=== PATIENT | female | born 1955 | race Caucasian/White ===

== ENCOUNTER 2016-09-02 03:24 | Observation (INO) | payer BC, MEDICARE ==
[2016-09-02] MEDS ORDERED: NITROGLYCERIN OINT 1 INCH/GM PACKET TOPICAL STA (03:35)
--- NOTE | 2016-09-02 03:42 | ED ---
Chest Pain HPI - General Stated Complaint: chest pain Source: patient, EMS Mode of arrival: EMS Limitations: no limitations - History of Present Illness Initial Comments: This patient is a 60-year-old woman who presents to be evaluated for chest pain. The patient states that for the past 5 nights she has had similar episodes to this. She indicates heavy sensation to the left chest, and also a feeling that her heart was skipping beats. She states that the symptoms tonight were more severe than they had been previously. She ranked the sensation as moderate. She had not noted any worsening or relieving factors at home. the patient does state that after she called EMS tonight and they gave her nitroglycerin she did have resolution of the symptoms. In addition tonight patient had an episode of vomiting associated. She also has had dyspnea and the palpitations. Patient denies diaphoresis, syncope, leg pain or swelling. MD Complaint: chest pain Onset/Timin -: hour(s) Onset: during rest Pain Location: left chest Pain Radiation: none Severity: moderate Quality: heaviness Consistency: constant, now resolved Improves With: nitroglycerin Worsens With: nothing Anginal Symptoms: vomiting, dyspnea Treatments Prior to Arrival: aspirin, nitroglycerin, oxygen - Related Data Home Medications Medication Instructions Recorded Confirmed tiZANidine HCL [Tizanidine HCl] 4 mg PO BID PRN 06/17/14 03/03/15 Previous Rx's Medication Instructions Recorded Docusate [Colace] 100 mg PO BID #60 capsule 03/04/15 HYDROcodone/APAP 7.5-325MG [[place] 1 - 2 each PO Q6HR PRN #90 tab 03/04/15 7.5-325] Warfarin [Coumadin] 2.5 mg PO DAILY #27 tab 03/04/15 Allergies Allergy/AdvReac Type Severity Reaction Status Date / Time No Known Allergies Allergy Verified 03/03/15 13:56 Review of Systems ROS Statement: Those systems with pertinent positive or pertinent negative responses have been documented in the HPI. ROS Other: All systems not noted in ROS Statement are negative. Constitutional: Denies: fever, weakness Respiratory: Reports: dyspnea. Denies: cough, wheezes Cardiovascular: Reports: chest pain, palpitations. Denies: dyspnea on exertion , orthopnea, edema, syncope Gastrointestinal: Reports: vomiting. Denies: abdominal pain, melena, hematochezia Genitourinary: Denies: dysuria, hematuria Musculoskeletal: Denies: back pain Skin: Denies: rash Neurological: Denies: headache, weakness, numbness EKG Findings - EKG Comments: EKG Findings:: Patient's 12-lead EKG shows sinus rhythm with a left bundle- branch block present. The rate is 62 bpm. NE interval is 158 ms. QRS duration prolonged at 134 ms. QT corrected is 424 ms - EKG Results: EKG: interpreted by [facility], sinus rhythm (Rate approximate 60 bpm) Past Medical History Past Medical History: Hypertension, Osteoarthritis (OA) Additional Past Medical History / Comment(s): 06/23/14 Pt admitted to floor s/p total L and R hip arthroplasty. Other HX: DDD. PILI SCIATIC NERVE PAIN. History of Any Multi-Drug Resistant Organisms: None Reported Past Surgical History: Joint Replacement Additional Past Surgical History / Comment(s): 03/03/15 Total L hip arthroplasty. Other SX: Total R hip arthroplasty. ECTOPIC PREG - LT SALPINGECTOMY. Past Anesthesia/Blood Transfusion Reactions: No Reported Reaction Past Psychological History: No Psychological Hx Reported Additional Psychological History / Comment(s): Pt resides with her brother. Pt normally is independent with her ADl"s. She drives a car. Smoking Status: Current every day smoker Past Alcohol Use History: None Reported Past Drug Use History: None Reported - Past Family History Mother Family Medical History: Cancer Father Family Medical History: Cancer General Exam Limitations: no limitations General appearance: alert, in no apparent distress Head exam: Present: atraumatic, normocephalic Eye exam: Present: normal appearance. Absent: scleral icterus, conjunctival injection ENT exam: Present: normal oropharynx Respiratory exam: Present: normal lung sounds bilaterally. Absent: respiratory distress, wheezes, rales, rhonchi, stridor Cardiovascular Exam: Present: regular rate, normal rhythm, normal heart sounds. Absent: systolic murmur, diastolic murmur, rubs, gallop GI/Abdominal exam: Present: soft. Absent: distended, tenderness, guarding, rebound, mass, pulsatile mass Extremities exam: Present: normal inspection, normal capillary refill. Absent: pedal edema, calf tenderness Back exam: Present: normal inspection. Absent: CVA tenderness (R), CVA tenderness (L) Neurological exam: Present: alert Skin exam: Present: warm, dry, intact, normal color. Absent: rash Course Vital Signs 09/02/16 09/02/16 03:33 04:58 Pulse Rate 68 54 L Respiratory 16 16 Rate Blood Pressure 218/98 187/90 O2 Sat by Pulse 95 98 Oximetry Disposition Clinical Impression: Chest pain Disposition: ADMITTED IP TO THIS HOSP Condition: Fair
[2016-09-02] MEDS ORDERED: METOPROLOL TARTRATE 25 MG TAB PO STA (03:43)
[2016-09-02 03:48] LABS: Basophils # (A) 0.1 k/uL (0-0.2); Basophils % (A) 1 %; CH 30.6; CHCM 33.7; Eosinophils # (A) 0.4 k/uL (0-0.7); Eosinophils % (A) 4 %; HCT 44.2 % (34.0-46.0); HDW 2.31; HGB 14.5 gm/dL (11.4-16.0); Luc # (Auto) 0.11; Luc % (Auto) 1; Lymphocytes # (A) 2.5 k/uL (1.0-4.8); Lymphocytes % (A) 27 %; MCHC 32.9 g/dL (31.0-37.0); MCV 91.4 fL (80.0-100.0); Mean Platelet Volume 7.2; Monocytes # (A) 0.4 k/uL (0-1.0); Monocytes % (A) 4 %; Neutrophils # (A) 5.9 k/uL (1.3-7.7); Neutrophils % (A) 64 %; RBC 4.84 m/uL (3.80-5.40); WBC 9.3 k/uL (3.8-10.6); WBC (Perox) 9.22
[2016-09-02 03:57] LABS: ALT 30 U/L (9-52); AST 20 U/L (14-36); Alkaline Phosphatase 86 U/L (38-126); Amylase 86 U/L (30-110); Anion Gap 11 mmol/L; Blood Urea Nitrogen 17 mg/dL (7-17); Calcium 9.7 mg/dL (8.4-10.2); Carbon Dioxide 23 mmol/L (22-30); Chloride 108 mmol/L (98-107); Glucose 100 mg/dL (74-99); Non-African American GFR(MDRD) >60 (>60 ml/min/1.73 sqM); Sodium 142 mmol/L (137-145); Total Bilirubin 0.4 mg/dL (0.2-1.3); Total Protein 7.7 g/dL (6.3-8.2)
[2016-09-02 03:58] LABS: Partial Thromboplastin Time 26.3 sec (22.0-30.0); Prothrombin Time 10.3 sec (9.0-12.0)
[2016-09-02 04:12] LABS: Creatine Kinase 53 U/L (30-135)
--- NOTE | 2016-09-02 04:12 | XR ---
EXAM: XR Chest, 1 View CLINICAL HISTORY: Reason: chest pain TECHNIQUE: Frontal view of the chest. COMPARISON: 03/04/15 two-view chest FINDINGS: Lungs: Unremarkable. No consolidation. Pleural space: Unremarkable. No pneumothorax. Heart: Heart size is stable and towards the upper limits of normal. Mediastinum: Unremarkable. Bones/joints: Bones are stable including mild degenerative changes. IMPRESSION: No significant change. No new acute intrathoracic abnormality.
[2016-09-02 04:25] LABS: Creatine Kinase MB 0.6 ng/mL (0.0-2.4); Troponin I <0.012 ng/mL (0.000-0.034)
[2016-09-02] MEDS ORDERED: NITROGLYCERIN SL TABS 0.4 MG TAB SUBLINGUAL PRN (05:19)
[2016-09-02] MEDS ORDERED: ENOXAPARIN 80 MG/0.8 ML SYRINGE SQ STA (05:22)
[2016-09-02] MEDS ORDERED: tiZANidine 4 MG TAB PO PRN (05:23)
--- NOTE | 2016-09-02 07:51 | P.CRDCN ---
History of Present Illness Consult date: 09/02/16 Chief complaint: Chest pain History of present illness: This is a pleasant 60-year-old female patient with a past medical history significant for hypertension presented to the hospital because she was not feeling well. Over the last 4-5 days she's been feeling dizzy and lightheaded and also she was experiencing headache and weakness. She did not experience any chest pain or chest discomfort nor shortness of breath. She was diagnosed with hypertension 5 months ago when she was restarted on medication then she decided to stop the medications on her own. Upon presenting to the emergency room the systolic blood pressure was more than 200 mmHg systolic. We only have one set of cardiac enzymes came in to be unremarkable. We don't have an EKG on the patient. We will obtain an EKG. Follow-up with the serial cardiac enzyme. The patient was started on metoprolol we'll continue that. I would add Norvasc to the current medical treatment as well. We will follow-up with the patient. Past Medical History Past Medical History: Hypertension, Osteoarthritis (OA) Additional Past Medical History / Comment(s): 06/23/14 Pt admitted to floor s/p total L and R hip arthroplasty. Other HX: DDD. PILI SCIATIC NERVE PAIN. History of Any Multi-Drug Resistant Organisms: None Reported Past Surgical History: Joint Replacement Additional Past Surgical History / Comment(s): 03/03/15 Total L hip arthroplasty. Other SX: Total R hip arthroplasty. ECTOPIC PREG - LT SALPINGECTOMY. Past Anesthesia/Blood Transfusion Reactions: No Reported Reaction Past Psychological History: No Psychological Hx Reported Additional Psychological History / Comment(s): Pt resides with her brother. Pt normally is independent with her ADl"s. She drives a car. Smoking Status: Current every day smoker Past Alcohol Use History: None Reported Past Drug Use History: None Reported - Past Family History Mother Family Medical History: Cancer Father Family Medical History: Cancer Medications and Allergies Home Medications Medication Instructions Recorded Confirmed Type Naproxen Sodium [Aleve] 220 mg PO DAILY PRN 09/02/16 09/02/16 History Allergies Allergy/AdvReac Type Severity Reaction Status Date / Time No Known Allergies Allergy Verified 09/02/16 07:23 Physical Exam Vitals: Vital Signs Temp Pulse Pulse Resp BP BP Pulse Ox 09/02/16 06:46 97.6 F 60 18 165/91 98 09/02/16 06:30 52 L 16 158/74 98 - Constitutional General appearance: no acute distress - Respiratory Respiratory: bilateral: CTA - Cardiovascular Rhythm: regular Heart sounds: normal: S1, S2 Results 09/02/16 03:38 09/02/16 03:38 Current Medications Generic Name Dose Route Start Last Admin Trade Name Freq PRN Reason Stop Dose Admin Aspirin 325 mg 09/03/16 09:00 Aspirin PO DAILY [facility] Docusate Sodium 100 mg 09/02/16 09:00 Colace PO BID [facility] Enoxaparin Sodium 70 mg 09/02/16 21:00 Lovenox SQ Q12HR [facility] Metoprolol Tartrate 25 mg 09/02/16 21:00 Lopressor PO BID [facility] Nitroglycerin 1 inch 09/02/16 12:00 Nitro-Bid Oint TOPICAL Q6HR [facility] Nitroglycerin 0.4 mg 09/02/16 05:19 Nitrostat SUBLINGUAL Q5M PRN Chest Pain Tizanidine HCl 4 mg 09/02/16 05:23 Zanaflex PO BID PRN Pain Warfarin Sodium 2.5 mg 09/02/16 18:00 Coumadin PO 1800 DORIS Assessment and Plan Plan: Assessment #1 hypertension emergency Plan #1 continue the metoprolol #2 add Norvasc to metoprolol #3 follow-up with the patient
[2016-09-02] MEDS: DOCUSATE 100 MG CAP PO SCH ×2 (10:21→20:23)
[2016-09-02] MEDS: amLODIPine 5 MG TAB PO SCH ×2 (10:23→20:23)
--- NOTE | 2016-09-02 11:18 | ECHOF ---
Referral Reason: MEASUREMENTS -------- HEIGHT: 162.6 cm WEIGHT: 69.9 kg BP: 165/91 RVIDd: 2.7 cm (< 3.3) IVSd: 1.2 cm (0.6 - 1.1) LVIDd: 3.8 cm (3.9 - 5.3) LVPWd: 1.0 cm (0.6 - 1.1) IVSs: 1.4 cm LVIDs: 3.0 cm LVPWs: 1.1 cm LA Diam: 3.1 cm (2.7 - 3.8) LAESV Index (A-L): 18.27 ml/m Ao Diam: 0.1 cm (2.0 - 3.7) MV EXCURSION: 15.271 mm (> 18.000) MV EF SLOPE: 72 mm/s (70 - 150) EPSS: 0.5 cm MV E Kayden: 0.80 m/s MV DecT: 220 ms MV A [place]: 0.19 m/s MV E/A Ratio: 4.23 RAP: 5.00 mmHg RVSP: 25.35 mmHg FINDINGS -------- Sinus rhythm. This was a technically adequate study. There is borderline concentric left ventricular hypertrophy. Overall left ventricular systolic function is normal with, an EF between 55 - 60 %. The right ventricle is normal in size. Normal LA size by volume 22+/-6 ml/m2. The right atrial size is normal. There is mild aortic valve sclerosis. There is no evidence of aortic regurgitation. Mild mitral annular calcification present. Mild mitral regurgitation is present. Mild tricuspid regurgitation present. There is no evidence of pulmonary hypertension. The right ventricular systolic pressure, as measured by Doppler, is 25.35mmHg. There is no pulmonic regurgitation present. The aortic root size is normal. There is no pericardial effusion. CONCLUSIONS -------- 1. There is borderline concentric left ventricular hypertrophy. 2. Overall left ventricular systolic function is normal with, an EF between 55 - 60 %. 3. There is mild aortic valve sclerosis. 4. Mild mitral annular calcification present. 5. Mild mitral regurgitation is present. 6. Mild tricuspid regurgitation present. 7. There is no evidence of pulmonary hypertension. 8. The right ventricular systolic pressure, as measured by Doppler, is 25.35mmHg. CREDIT MANAGER: Jennifer Montoya RDCS
[2016-09-02] MEDS: NITROGLYCERIN OINT 1 INCH/GM PACKET TOPICAL SCH ×2 (11:19→17:47)
[2016-09-02 11:41] LABS: Creatine Kinase 47 U/L (30-135)
[2016-09-02 11:55] LABS: Creatine Kinase MB 0.6 ng/mL (0.0-2.4); Troponin I <0.012 ng/mL (0.000-0.034)
--- NOTE | 2016-09-02 13:13 | HP ---
DATE OF ADMISSION: This dictation is both H&P and discharge summary. The patient is a 60-year-old came in with complaints of dizziness, lightheadedness and palpitations along with chest pressure-like sensation, denied any diaphoresis associated with that; was having some lightheadedness with also questionable shortness of breath. Patient was found to have a very highly elevated blood pressure. Patient is admitted for hypertensive emergency and accelerated hypertension, improved blood pressure now and patient is on amlodipine and metoprolol. Because of the palpitations at home, although there is no evidence of tachycardia here. Patient became bradycardic because of which I am not giving the script of metoprolol. If cleared by Cardiology, patient will discharge. The patient does have some significant abnormalities on the EKG, which include on and off bundle branch block with left ventricular hypertrophic changes. The patient had an echocardiogram which showed LV hypertrophic changes as well. Patient presently does not have any symptoms, fairly doing well. Patient denied any fever or chills. Patient denied any abdominal pain. Patient denied dysuria. Patient if cleared by cardiology will be discharged today. This dictation is both H&P and discharge summary. ROS: All others systems were reviewed and were negative. PAST MEDICAL HISTORY: Hypertension, osteoarthritis, and joint replacement surgery. SOCIAL HISTORY: The patient does smoke, appears to be highly noncompliant with medications. Denied any alcohol abuse or any drug abuse. FAMILY HISTORY: Mother had cancer. Father had cancer. Home medications include naproxen. No known allergies. PHYSICAL EXAMINATION: Temperature 98.1, pulse of 45, respiratory rate of 16, blood pressure is 163/79, saturating at 97% on room air. GENERAL: The patient is alert and oriented x3, not in any acute distress. Well developed, well nourished. HEENT: Pupils are round and equally reacting to light. EOMI. No scleral icterus. No conjunctival pallor. Normocephalic, atraumatic. No pharyngeal erythema. No thyromegaly. CARDIOVASCULAR: S1 and S2 present. No murmurs, rubs, or gallops. PULMONARY: Chest is clear to auscultation, no wheezing or crackles. ABDOMEN: Soft, nontender, nondistended, normoactive bowel sounds. No palpable organomegaly. MUSCULOSKELETAL: No joint swelling or deformity. EXTREMITIES: No cyanosis, clubbing, or pedal edema. NEUROLOGICAL: Gross neurological examination did not reveal any focal deficits. SKIN: No rashes. LABORATORY DATA: CBC, CMP, essentially within normal limits. Troponins are negative. EKG as mentioned above. Chest x-ray did not show any significant abnormality. ASSESSMENT AND PLAN: 1. Palpitations, chest pain and elevated blood pressure probably has hypertensive emergency, which improved with improved symptoms. Patient will be started on amlodipine. Patient may require a second medication. Patient is highly noncompliant. Because of the bradycardia. metoprolol will be discontinued. 2. Nicotine abuse history. Counseling was provided. 3. Chest pain, appears to have been related mostly to her hypertension. 4. Palpitations. Management as mentioned above. We do not see any kind of tachycardia since her hospitalization. Beta rachel may not be a good idea because of bradycardia episodes. Will get the opinion of Cardiology as well. 5. Patient also gives symptoms of some gastroesophageal reflux disease. Patient takes naproxen at home. I asked her to discontinue naproxen. Can take extra strength Tylenol for pain and [id number] Zantac for acid reflux symptoms. This dictation is both H&P and discharge summary. Patient will be discharged if cleared by cardiology. ELIZABETH
[2016-09-02 15:39] LABS: Creatine Kinase 42 U/L (30-135)
[2016-09-02 15:52] LABS: Creatine Kinase MB 0.6 ng/mL (0.0-2.4); Troponin I <0.012 ng/mL (0.000-0.034)
[2016-09-02] MEDS ORDERED: WARFARIN 2.5 MG TAB PO SCH (18:00)
[2016-09-02] MEDS: ENOXAPARIN 80 MG/0.8 ML SYRINGE SQ SCH (20:23)
[2016-09-02] MEDS ORDERED: METOPROLOL TARTRATE 25 MG TAB PO SCH (21:00)
[2016-09-03] MEDS: NITROGLYCERIN OINT 1 INCH/GM PACKET TOPICAL SCH ×3 (00:08→11:18)
[2016-09-03 02:37] LABS: Cholesterol 213 mg/dL (<200); HDL Cholesterol 54 mg/dL (40-60); Triglycerides 172 mg/dL (<150)
[2016-09-03] MEDS: DOCUSATE 100 MG CAP PO SCH (08:18)
[2016-09-03] MEDS: ENOXAPARIN 80 MG/0.8 ML SYRINGE SQ SCH (08:18)
[2016-09-03] MEDS: amLODIPine 5 MG TAB PO SCH (08:18)
[2016-09-03] MEDS ORDERED: ASPIRIN 325 MG TAB PO SCH (09:00)
--- NOTE | 2016-09-03 09:39 | P.PN ---
Progress Note - Text This is a pleasant 60-year-old female patient with a past medical history significant for hypertension presented to the hospital because she was not feeling well. Over the last 4-5 days she's been feeling dizzy and lightheaded and also she was experiencing headache and weakness. She did not experience any chest pain or chest discomfort nor shortness of breath. She was diagnosed with hypertension 5 months ago when she was restarted on medication then she decided to stop the medications on her own. Upon presenting to the emergency room the systolic blood pressure was more than 200 mmHg systolic. We only have one set of cardiac enzymes came in to be unremarkable. We don't have an EKG on the patient. I added Norvasc to the current medical treatment and the blood pressure has been well-controlled. From the cardiovascular standpoint of view, the patient can be discharged home.
[2016-09-03 12:15] VITALS: BP 119/65; PULSE 64; RESP 14; TEMP 98.2
--- NOTE | 2016-09-03 20:14 | DS ---
DATE OF ADMISSION: 09/02/2016 DATE OF DISCHARGE: 09/03/2016 The patient is admitted for possible hypertensive emergency. Patient was started on amlodipine with well-controlled blood pressures. The patient was evaluated by Cardiology because of her chest pain. Regarding her chest pain, the patient does not have any more chest pain. The chest pain was believed to be secondary to hypertension. The patient is being discharged today in stable medical condition to home, on amlodipine 10 mg. Patient does have elevated LDL for which with the patient will be started on statin and also aspirin. Patient has an echocardiogram which did not show any significant abnormality except for left ventricular hypertrophy. The patient will be discharged today to follow with Dr. Hackett in 3 to 5 days. Cardiac diet. Activity as tolerated. Follow up with Dr. Granados in 2 weeks. The patient's symptoms are completely resolved at this point of time. There was one episode where her blood pressure had gone down quite a bit, probably because of nitroglycerin patch she had. Apart from that, her blood pressures are fairly stable at this time. Patient will be discharged today. Patient was seen and examined on the day or discharge. Vital signs stable. GENERAL: The patient is alert and oriented x3, not in any acute distress. Well developed, well nourished. HEENT: Pupils are round and equally reacting to light. EOMI. No scleral icterus. No conjunctival pallor. Normocephalic, atraumatic. No pharyngeal erythema. No thyromegaly. CARDIOVASCULAR: S1 and S2 present. No murmurs, rubs, or gallops. PULMONARY: Chest is clear to auscultation, no wheezing or crackles. ABDOMEN: Soft, nontender, nondistended, normoactive bowel sounds. No palpable organomegaly. MUSCULOSKELETAL: No joint swelling or deformity. EXTREMITIES: No cyanosis, clubbing, or pedal edema. NEUROLOGICAL: Gross neurological examination did not reveal any focal deficits. SKIN: No rashes. FINAL DIAGNOSES: 1. Chest pain secondary to accelerated hypertension, hypertensive emergency. 2. Hyperlipidemia. 3. Nicotine abuse, counseling was provided. 4. Palpitations. Patient was watched here overnight, no rhythm abnormalities at this point of time. 5. Patient will use [id number] medications for gastroesophageal disease and avoid naproxen.
== END 2016-09-03 15:17 | disposition home or self-care (01) ==
LOC: EC 03:24 → 3OBS 05:25
PROVIDERS: ADMIT Hospitalist; ATTEND Hospitalist
DX: I11.9 Hypertensive heart disease without heart failure (principal); I16.1 Hypertensive emergency; E78.5 Hyperlipidemia, unspecified; F17.200 Nicotine dependence, unspecified, uncomplicated; R00.2 Palpitations; R00.1 Bradycardia, unspecified; E78.00 Pure hypercholesterolemia, unspecified; K21.9 Gastro-esophageal reflux disease without esophagitis; Z91.14 Patient's other noncompliance with medication regimen; Z80.9 Family history of malignant neoplasm, unspecified
CPT/HCPCS: 96372 ×2; 99285; 36415; 93005; 93306; 80061; 80053; 82150; 82550; 82553; 83690; 83735; 84484; 85025; 85610; 85730; 71010; G0378 ×2; J1650 ×2

== ENCOUNTER 2016-09-11 23:19 | Observation (INO) | payer MEDICARE ==
[2016-09-11] MEDS ORDERED: NITROGLYCERIN SL TABS 0.4 MG TAB SUBLINGUAL STA ×3 (23:41)
[2016-09-11] MEDS ORDERED: ASPIRIN 81 MG CHEW PO STA (23:41)
--- NOTE | 2016-09-12 00:07 | ED ---
General Adult HPI - General Chief complaint: Chest Pain Stated complaint: Chest Pain Time Seen by Provider: 09/11/16 23:30 Source: patient, RN notes reviewed Mode of arrival: ambulatory Limitations: no limitations - History of Present Illness Initial comments: Patient is a pleasant 60-year-old female presenting to the emergency department chest discomfort. Onset was a less than an hour ago while resting in bed. Patient had palpitations followed by tightness in her chest. Tightness has improved at this time and is currently rated 6 or 7/10. Patient had some mild dyspnea and nausea. No diaphoresis however patient felt flushed. Patient was in the hospital a couple weeks ago for palpitations however had no chest discomfort at that time. - Related Data Home Medications Medication Instructions Recorded Confirmed Naproxen Sodium [Aleve] 220 mg PO DAILY PRN 09/02/16 09/02/16 Previous Rx's Medication Instructions Recorded Aspirin [Adult Low Dose Aspirin EC] 81 mg PO DAILY #30 tablet. 09/03/16 Atorvastatin Calcium [Lipitor] 20 mg PO HS #30 tab 09/03/16 Allergies Allergy/AdvReac Type Severity Reaction Status Date / Time No Known Allergies Allergy Verified 09/11/16 23:24 Review of Systems ROS Statement: Those systems with pertinent positive or pertinent negative responses have been documented in the HPI. ROS Other: All systems not noted in ROS Statement are negative. Constitutional: Denies: fever Eyes: Denies: eye pain ENT: Denies: ear pain Respiratory: Reports: dyspnea. Denies: cough Cardiovascular: Reports: chest pain Endocrine: Denies: fatigue Gastrointestinal: Reports: nausea. Denies: abdominal pain Genitourinary: Denies: urgency Musculoskeletal: Denies: back pain Skin: Denies: rash Neurological: Denies: headache Past Medical History Past Medical History: Hypertension, Osteoarthritis (OA) Additional Past Medical History / Comment(s): 06/23/14 Pt admitted to floor s/p total L and R hip arthroplasty. Other HX: DDD. PILI SCIATIC NERVE PAIN. History of Any Multi-Drug Resistant Organisms: None Reported Past Surgical History: Joint Replacement Additional Past Surgical History / Comment(s): 03/03/15 Total L hip arthroplasty. Other SX: Total R hip arthroplasty. ECTOPIC PREG - LT SALPINGECTOMY. Past Anesthesia/Blood Transfusion Reactions: No Reported Reaction Past Psychological History: No Psychological Hx Reported Additional Psychological History / Comment(s): Pt resides with her brother. Pt normally is independent with her ADl"s. She drives a car. Smoking Status: Current every day smoker Past Alcohol Use History: None Reported Past Drug Use History: None Reported - Past Family History Mother Family Medical History: Cancer Father Family Medical History: Cancer General Exam Limitations: no limitations General appearance: alert, in no apparent distress Head exam: Present: atraumatic, normocephalic Eye exam: Present: normal appearance, PERRL ENT exam: Present: normal oropharynx Neck exam: Present: normal inspection Respiratory exam: Present: normal lung sounds bilaterally Cardiovascular Exam: Present: regular rate, normal rhythm Expanded Peripheral pulses: 2+: Radial (R), Radial (L), Dorsalis Pedis (R), Dorsalis Pedis (L) GI/Abdominal exam: Present: soft. Absent: tenderness Extremities exam: Present: normal inspection. Absent: pedal edema, calf tenderness Neurological exam: Present: alert Psychiatric exam: Present: normal affect, normal mood Skin exam: Absent: rash Course Vital Signs 09/11/16 09/11/16 23:21 23:58 Temperature 97.8 F Pulse Rate 99 88 Respiratory 20 16 Rate Blood Pressure 146/93 113/73 O2 Sat by Pulse 98 98 Oximetry EKG Findings - EKG Comments: EKG Findings:: Normal sinus rhythm at 88. OH 178. QRS 1:30. QT 396. QTc 479. Left axis. Left bundle branch block. Nonspecific ST-T. Medical Decision Making - Medical Decision Making patient reexamined and symptom-free following one nitroglycerin. Patient updated on results and plan. There is concern for new left bundle-branch block. Case was discussed in detail with Dr. Pryor, who will admit for Dr. Babcock. - Lab Data Result diagrams: 09/11/16 23:56 09/11/16 23:56 Lab Results 09/11/16 09/11/16 09/11/16 Range/Units 23:56 23:56 23:56 WBC 8.0 (3.8-10.6) k/uL RBC 4.65 (3.80-5.40) m/uL Hgb 14.1 (11.4-16.0) gm/dL Hct 42.3 (34.0-46.0) % MCV 91.0 (80.0-100.0) fL MCH 30.3 (25.0-35.0) pg MCHC 33.3 (31.0-37.0) g/dL RDW 13.0 (11.5-15.5) % Plt Count 262 (150-450) k/uL Neutrophils % 59 % Lymphocytes % 32 % Monocytes % 4 % Eosinophils % 4 % Basophils % 1 % Neutrophils # 4.7 (1.3-7.7) k/uL Lymphocytes # 2.5 (1.0-4.8) k/uL Monocytes # 0.3 (0-1.0) k/uL Eosinophils # 0.3 (0-0.7) k/uL Basophils # 0.1 (0-0.2) k/uL PT (9.0-12.0) sec INR (<1.1) APTT (22.0-30.0) sec Sodium 142 (137-145) mmol/L Potassium 3.8 (3.5-5.1) mmol/L Chloride 108 H (98-107) mmol/L Carbon Dioxide 22 (22-30) mmol/L Anion Gap 12 mmol/L BUN 21 H (7-17) mg/dL Creatinine 0.90 (0.52-1.04) mg/dL Est GFR (MDRD) Af Amer >60 (>60 ml/min/1.73 sqM) Est GFR (MDRD) Non-Af >60 (>60 ml/min/1.73 sqM) Glucose 98 (74-99) mg/dL Calcium 9.5 (8.4-10.2) mg/dL Magnesium 2.0 (1.6-2.3) mg/dL Total Bilirubin 0.5 (0.2-1.3) mg/dL AST 27 (14-36) U/L ALT 48 (9-52) U/L Alkaline Phosphatase 85 (38-126) U/L Total Creatine Kinase 60 (30-135) U/L CK-MB (CK-2) 0.8 (0.0-2.4) ng/mL CK-MB (CK-2) Rel Index 1.3 Troponin I <0.012 (0.000-0.034) ng/mL Total Protein 7.2 (6.3-8.2) g/dL Albumin 4.2 (3.5-5.0) g/dL 09/11/16 Range/Units 23:56 WBC (3.8-10.6) k/uL RBC (3.80-5.40) m/uL Hgb (11.4-16.0) gm/dL Hct (34.0-46.0) % MCV (80.0-100.0) fL MCH (25.0-35.0) pg MCHC (31.0-37.0) g/dL RDW (11.5-15.5) % Plt Count (150-450) k/uL Neutrophils % % Lymphocytes % % Monocytes % % Eosinophils % % Basophils % % Neutrophils # (1.3-7.7) k/uL Lymphocytes # (1.0-4.8) k/uL Monocytes # (0-1.0) k/uL Eosinophils # (0-0.7) k/uL Basophils # (0-0.2) k/uL PT 10.5 (9.0-12.0) sec INR 1.0 (<1.1) APTT 25.6 (22.0-30.0) sec Sodium (137-145) mmol/L Potassium (3.5-5.1) mmol/L Chloride (98-107) mmol/L Carbon Dioxide (22-30) mmol/L Anion Gap mmol/L BUN (7-17) mg/dL Creatinine (0.52-1.04) mg/dL Est GFR (MDRD) Af Amer (>60 ml/min/1.73 sqM) Est GFR (MDRD) Non-Af (>60 ml/min/1.73 sqM) Glucose (74-99) mg/dL Calcium (8.4-10.2) mg/dL Magnesium (1.6-2.3) mg/dL Total Bilirubin (0.2-1.3) mg/dL AST (14-36) U/L ALT (9-52) U/L Alkaline Phosphatase (38-126) U/L Total Creatine Kinase (30-135) U/L CK-MB (CK-2) (0.0-2.4) ng/mL CK-MB (CK-2) Rel Index Troponin I (0.000-0.034) ng/mL Total Protein (6.3-8.2) g/dL Albumin (3.5-5.0) g/dL Critical Care Time Critical Care Time: Yes Total Critical Care Time: 34 Disposition Clinical Impression: Unstable angina pectoris, New onset left bundle branch block (LBBB) Disposition: ADMITTED IP TO THIS [facility] Condition: Serious Time of Disposition: 01:14
[2016-09-12 00:14] LABS: Basophils # (A) 0.1 k/uL (0-0.2); Basophils % (A) 1 %; CH 30.4; CHCM 33.5; Eosinophils # (A) 0.3 k/uL (0-0.7); Eosinophils % (A) 4 %; HCT 42.3 % (34.0-46.0); HDW 2.27; HGB 14.1 gm/dL (11.4-16.0); Luc # (Auto) 0.12; Luc % (Auto) 2; Lymphocytes # (A) 2.5 k/uL (1.0-4.8); Lymphocytes % (A) 32 %; MCH 30.3 pg (25.0-35.0); MCHC 33.3 g/dL (31.0-37.0); Mean Platelet Volume 7.2; Monocytes # (A) 0.3 k/uL (0-1.0); Monocytes % (A) 4 %; Neutrophils # (A) 4.7 k/uL (1.3-7.7); Neutrophils % (A) 59 %; RBC 4.65 m/uL (3.80-5.40); WBC (Perox) 7.53
[2016-09-12 00:22] LABS: ALT 48 U/L (9-52); AST 27 U/L (14-36); Alkaline Phosphatase 85 U/L (38-126); Anion Gap 12 mmol/L; Blood Urea Nitrogen 21 mg/dL (7-17); Calcium 9.5 mg/dL (8.4-10.2); Carbon Dioxide 22 mmol/L (22-30); Chloride 108 mmol/L (98-107); Glucose 98 mg/dL (74-99); Non-African American GFR(MDRD) >60 (>60 ml/min/1.73 sqM); Partial Thromboplastin Time 25.6 sec (22.0-30.0); Potassium 3.8 mmol/L (3.5-5.1); Prothrombin Time 10.5 sec (9.0-12.0); Sodium 142 mmol/L (137-145); Total Bilirubin 0.5 mg/dL (0.2-1.3); Total Protein 7.2 g/dL (6.3-8.2)
[2016-09-12 00:42] LABS: Creatine Kinase 60 U/L (30-135)
[2016-09-12 00:55] LABS: Creatine Kinase MB 0.8 ng/mL (0.0-2.4); Troponin I <0.012 ng/mL (0.000-0.034)
--- NOTE | 2016-09-12 01:22 | XR ---
EXAM: XR Chest, 2 Views CLINICAL HISTORY: Chest pain. TECHNIQUE: Frontal and lateral views of the chest. COMPARISON: CXR dated 09/02/2016. FINDINGS: Lungs: No focal consolidation. No evidence of pulmonary edema. Pleural space: No pleural effusion. No pneumothorax. Heart: Unremarkable. No cardiomegaly. Mediastinum: Unremarkable. No mediastinal widening. Bones/joints: Stable osseous structures without evidence of fracture. IMPRESSION: No radiographic evidence of acute cardiopulmonary process.
[2016-09-12] MEDS ORDERED: NITROGLYCERIN SL TABS 0.4 MG TAB SUBLINGUAL PRN (01:25)
[2016-09-12] MEDS ORDERED: HEPARIN SODIUM,PORCINE 5,000 UNIT/ML 1 ML VIAL IV ONE (01:25)
[2016-09-12] MEDS ORDERED: HEPARIN SODIUM,PORCINE 5,000 UNIT/ML 1 ML VIAL IV PRN (01:25)
[2016-09-12] MEDS ORDERED: HEPARIN SODIUM,PORCINE/D5W PMX 25,000 UNIT in DEXTROSE/WATER 1 500ML.BAG IV SCH (01:30)
[2016-09-12] MEDS: NITROGLYCERIN OINT 1 INCH/GM PACKET TOPICAL SCH ×3 (07:11→17:36)
[2016-09-12 07:29] LABS: Creatine Kinase 48 U/L (30-135)
[2016-09-12 07:40] LABS: Creatine Kinase MB 0.8 ng/mL (0.0-2.4); Troponin I <0.012 ng/mL (0.000-0.034)
[2016-09-12 13:50] LABS: Creatine Kinase 46 U/L (30-135)
[2016-09-12 14:04] LABS: Creatine Kinase MB 0.8 ng/mL (0.0-2.4); Troponin I <0.012 ng/mL (0.000-0.034)
[2016-09-12] MEDS: HYDROcodone/APAP 5-325MG 1 EACH TAB PO PRN (14:15)
[2016-09-12] MEDS ORDERED: DOBUTamine DRIP for NUC MED 500 MG in DEXTROSE/WATER 1 250ML.BAG IV ONE (17:57)
--- NOTE | 2016-09-12 18:03 | CONS ---
DATE OF CONSULTATION: A 60-year-old female who presented with chest discomfort and fluttering and pounding in the chest. She has a pounding and palpitations in the chest when she rolls over to right side at night, but when she walks she gets pounding and palpitations and also chest discomfort which is nonradiating. She was recently here about 10 days back and is back in the hospital with the exact same complaints. Last time she was complaining of chest pressure and discomfort as well as palpitations. She has had the same symptoms this time but no dizziness, no lightheadedness. At that time she was found to have very high blood pressure. She is also bradycardic secondary to metoprolol. 2-D echocardiogram 10 days back had showed normal LV systolic function. 12-lead ECG showed left bundle branch block. This time she has a left bundle branch block on ECG. Three sets of cardiac enzymes are normal. REVIEW OF SYSTEMS: No fever, chills, rigors. No cough or expectoration. No nausea, vomiting or diarrhea. No hematuria or dysuria. No strokes or seizures. No skin lesions or musculoskeletal complaints. Past medical history of hypertension, osteoarthritis, joint replacement, noncompliance with medications. SOCIAL HISTORY: She is a current smoker. No alcohol use. Family history of cancer. Home medication list was reviewed and is documented in the chart and includes amlodipine 10 mg daily and aspirin On examination, her blood pressure upon admission was 130/75 mmHg, respirations are normal. Heart rate in the 60s, afebrile, 98.3 degrees Fahrenheit. Head and neck examination is normal. No JVD, thyromegaly, or carotid bruits. Heart sounds S1, S2 are normal. No murmurs or gallops. Breath sounds are normal. No rhonchi. No crackles. Abdomen was soft, nontender. Extremities are warm. No edema. A 12-lead ECG shows sinus rhythm with a left bundle branch block pattern and QRS 130 ms. Cardiac enzymes were normal. Labs are reviewed. Electrolytes are normal and hemoglobin is normal. IMPRESSION: 1. Atypical chest discomfort, recurrent. 2. Recurrent palpitations. No arrhythmias documented. 3. History of hypertension. Blood pressure is controlled now. 4. Left bundle branch block on 12-lead electrocardiogram. 5. Normal left ventricle systolic function by 2-D echo 10 days back. SUGGEST: Dobutamine stress echo tomorrow to look for any underlying ischemia and to look for any dobutamine induced arrhythmias.
[2016-09-12] MEDS: NICOTINE 7MG/24HR PATCH TRANSDERM SCH (18:35)
[2016-09-12] MEDS ORDERED: ASPIRIN 81 MG CHEW PO SCH (20:00)
[2016-09-13] MEDS ORDERED: DOBUTamine DRIP for NUC MED 500 MG in DEXTROSE/WATER 1 250ML.BAG IV ONE (05:00)
--- NOTE | 2016-09-13 06:34 | HP ---
DATE OF ADMISSION: Chief complaint is fluttering heart and chest tightness. HISTORY OF PRESENT ILLNESS: Ms. Adorno is a 60-year-old female with a known history of hypertension, recently diagnosed and chronic back pain and smoking, came to the ER with complaints of chest tightness squeezing-type and fluttering heart apparently patient had these symptoms about around 9 p.m. last night. Patient noticed fluttering of the heart and racing fast and also red flashing along with nausea and right arm numbness which is associated with squeezing chest pain, which made her come to the hospital. Patient was given nitroglycerin and patient says that nitroglycerin seems to help her pain. Pain is around 6 or 7 out of 10. No diaphoresis. No headache or dizziness noted. Apparently patient had shopping all day yesterday and also did cut her lawn yesterday. Patient usually gets back pain when she walks some distance and for that patient developed short of breath. However, no orthopnea, no PND noted. Patient had an EKG done in the ER that showed suspected left bundle branch block and poor R wave progression and currently admitted to the hospital for unstable angina and cardiology has been consulted. REVIEW OF SYSTEMS: CONSTITUTIONAL: Patient denied any fever or chills. No recent illnesses. No weakness or malaise. RESPIRATORY: No cough or sputum production. CARDIOVASCULAR: Patient denied any chest pain now. Patient does have short of breath and no leg swelling. Patient did have ankle swelling yesterday. ABDOMEN: No nausea, vomiting, or abdominal pain. No diarrhea. GENITOURINARY: Negative. ENDOCRINE: Negative. PSYCHIATRY: Negative. SKIN: Negative. MUSCULOSKELETAL: Negative. All [id number] review of systems negative except as above. Past medical history includes hypertension, osteoarthritis, chronic back pain, bilateral sciatic nerve pain and smoking. PAST SURGICAL HISTORY: Total hip arthroplasty of the right hip and a tubal left salpingectomy. No psychosocial history. SOCIAL HISTORY: Patient currently resides with her brother, normally independent. Drives a car. currently an everyday smoker; smokes about 5 cigarettes per day. Denied any alcohol use. Denied any drugs or IVDU. FAMILY HISTORY: Father and mother both had heart disease and of cancer. ALLERGIES: No known drug allergies. HOME MEDICATION: 1. Naprosyn. 2. Aspirin. 3. Atorvastatin. 4. Norvasc. 5. Vicodin. PHYSICAL EXAMINATION: A 60-year-old female, lying in bed comfortably, awake, alert, oriented x3. Appears to be in no apparent distress at this time. VITALS: Blood pressure is 146/93, pulse is 99, respirations 20, temperature afebrile, pulse ox 98% on room air on admission. HEENT: Atraumatic, tomographic. Neck is supple. No JVD. CVS EXAM: S1, S2 heard. No murmurs, no gallop, no rub. LUNGS: Bilateral air entry is present. No wheezing. No crackles. Nonlabored breathing. ABDOMEN: Soft, nontender. Bowel sounds are present. CENTRAL NERVOUS SYSTEM: Awake, alert, oriented x3. No focal deficit. EXTREMITIES: No edema. Pulses palpable bilaterally. No clubbing or cyanosis. PSYCHIATRIC: Cooperative. LABORATORY DATA: WBC 8.0, hemoglobin 14.1, platelets 262. Sodium 142, potassium 3.8, chloride 108, bicarb is 32, BUN 21, creatinine 0.9. Troponin x3 negative. EKG showed possible left bundle branch block and poor R wave progression. No ST elevation noted. IMPRESSION: 1. Unstable angina. Patient will be continued on telemonitoring. Serial troponins are negative. Suspect new onset left bundle branch block. Cardiology has been consulted and follow up closely. 2. Hypertension, controlled. The patient was recently started on Norvasc. 3. Chronic back pain, on orthopedic follow up. 4. Cigarette smoking. DISCUSSION AND PLAN: Patient will be continued on telemonitoring and serial troponins are negative. Patient is not having active chest pain. Cardiology consulted for further recommendations.
[2016-09-13 08:37] LABS: Basophils # (A) 0.1 k/uL (0-0.2); Basophils % (A) 1 %; CH 30.1; CHCM 32.4; Eosinophils # (A) 0.3 k/uL (0-0.7); Eosinophils % (A) 4 %; HDW 2.25; Luc # (Auto) 0.13; Luc % (Auto) 2; Lymphocytes # (A) 2.6 k/uL (1.0-4.8); Lymphocytes % (A) 40 %; MCH 29.7 pg (25.0-35.0); MCHC 31.9 g/dL (31.0-37.0); MCV 93.2 fL (80.0-100.0); Mean Platelet Volume 7.2; Monocytes # (A) 0.4 k/uL (0-1.0); Monocytes % (A) 6 %; Neutrophils % (A) 46 %; RBC 4.73 m/uL (3.80-5.40); RDW 12.9 % (11.5-15.5); WBC 6.5 k/uL (3.8-10.6)
[2016-09-13] MEDS ORDERED: ASPIRIN 325 MG TAB PO SCH (09:00)
[2016-09-13 09:05] LABS: Anion Gap 10 mmol/L; Blood Urea Nitrogen 17 mg/dL (7-17); Calcium 9.4 mg/dL (8.4-10.2); Carbon Dioxide 26 mmol/L (22-30); Chloride 106 mmol/L (98-107); Cholesterol 216 mg/dL (<200); Glucose 85 mg/dL (74-99); HDL Cholesterol 65 mg/dL (40-60); Non-African American GFR(MDRD) >60 (>60 ml/min/1.73 sqM); Potassium 4.4 mmol/L (3.5-5.1); Sodium 142 mmol/L (137-145); Triglycerides 103 mg/dL (<150)
[2016-09-13] MEDS: HYDROcodone/APAP 5-325MG 1 EACH TAB PO PRN ×2 (09:05→16:30)
[2016-09-13] MEDS: NICOTINE 7MG/24HR PATCH TRANSDERM SCH (11:15)
[2016-09-13] MEDS ORDERED: amLODIPine 10 MG TAB PO SCH (13:00)
--- NOTE | 2016-09-13 13:16 | ECHOS ---
DATE OF SERVICE: 09/13/2016 AGE: 60Y SEX: F HT: 64" WT: 174 lbs. Protocol Phu: Others: Stage: Dur. of Exercise: 9 minutes *Heart Rate Blood Pressure *Rest: 57 Rest: 158/58 * *Max. Achieved: 143 Maximum BP: 142/70 85% PMHR: 138 100% PMHR: 162 *METS: INDICATIONS: Chest pain. MEDICATIONS: See list. Mrs. Mir is a 60-year-old female who is admitted to the hospital with complaints of chest pain, palpitation and shortness of breath. The patient has a history of hypertension and hypercholesterolemia and smoking history. Baseline EKG showed sinus rhythm with normal VT interval and QRS duration. Blood pressure at rest is 158/58, pulse rate of 57. A standard dose of dobutamine was initiated and it was titrated to maximum of 40 mcg achieving a maximum of 143 with a blood pressure of 142/70. EKGs taken during and after the exercise did not reveal any changes to suggest ischemia. ECHO data: Baseline echo images showed normal wall motion and thickening. Exercise echo images taken at low-dose and high-dose dobutamine showed progressive augmentation of the wall motion and thickening in all the segments. Patient complained of chest discomfort which gradually improved in the postexercise period. These complaints are not associated with wall motion abnormalities or EKG changes. FINAL IMPRESSION: 1. Negative dobutamine stress test. 2. Negative dobutamine stress echo. 3. Patient complained of chest pain, which appeared to be atypical.
[2016-09-13 16:29] VITALS: BP 140/81; TEMP 98.1
[2016-09-13 16:34] VITALS: PULSE 65; RESP 18
[2016-09-13] MEDS ORDERED: ATORVASTATIN 20 MG TAB PO SCH (21:00)
--- NOTE | 2016-09-14 19:30 | DS ---
DATE OF ADMISSION: 09/12/2016 DATE OF DISCHARGE: 09/13/2016 DISCHARGE DIAGNOSES: 1. Atypical chest pain. Rule out acute coronary syndrome. Dobutamine stress test is negative. Chest pain could be related to gastroesophageal reflux disease versus musculoskeletal; improved at this time. 2. Hypertension, controlled. 3. Chronic back pain, on orthopedic clinic followup. 4. Nicotine addiction. Counseled for cessation. 5. Hyperlipidemia. HOSPITAL COURSE: Ms. Adorno is a 60-year-old female with known history of hypertension, admitted to hospital with complaints of chest tightness and squeezing and fluttering heart. 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 EKG showed normal sinus rhythm. Patient was also concerned about chest pain. patient was seen by Cardiology, who recommended Dobutamine stress test. Patient underwent stress test and it was negative. Serial EKG and troponins are negative. Patient is free of chest pain. Chest pain seems to be most likely musculoskeletal and possible GERD. Patient did improve symptomatically. No active chest pain now. Patient is free of chest pain. Otherwise, patient is stable to be discharged home and to follow with her primary care physician in 1 to 3 days. DISCHARGE PHYSICAL EXAMINATION: A 60-year-old female lying in bed comfortably. Awake, alert and oriented x3. Patient in no apparent distress. VITALS: Blood pressure is 140/81, pulse 70, respiration 16, temperature afebrile, pulse ox 95% on room air. LABORATORY DATA: Reviewed. Patient was found to have cholesterol level with LDL of 130. Otherwise labs within normal limits. Discharge medications include: 1. Aspirin 81 mg p.o. daily. 2. Norvasc 10 mg p.o. daily. 3. Atorvastatin 20 mg p.o. at bedtime. Patient will be discharged home. activity as tolerated. Follow up with Dr. Hackett in 1 to 2 days. Home with self-care. Cardiac diet. negative Dobutamine stress test. patient complained of chest pain which appeared to be atypical. stress echo was negative as well. [facility]
== END 2016-09-13 18:00 | disposition home or self-care (01) ==
LOC: EC 23:19 → 3SUR 09-12 01:25 → 3OBS 09-12 08:53
PROVIDERS: ADMIT Internal Medicine; ATTEND Internal Medicine
DX: R07.89 Other chest pain (principal); I10 Essential (primary) hypertension; G89.29 Other chronic pain; M54.9 Dorsalgia, unspecified; F17.210 Nicotine dependence, cigarettes, uncomplicated; E78.5 Hyperlipidemia, unspecified; R11.0 Nausea; R20.0 Anesthesia of skin; Z80.9 Family history of malignant neoplasm, unspecified; R00.2 Palpitations; I44.7 Left bundle-branch block, unspecified; Z96.643 Presence of artificial hip joint, bilateral
CPT/HCPCS: 96365; 96366 ×6; 96376; 99291; 36415; 93005; 93017; 93350; 80061; 80053; 80048; 82550; 82553; 83735; 84484; 85025 ×2; 85049; 85610; 85730; 71020; G0378 ×2; S4990 ×2; J1250; J1644 ×2

== ENCOUNTER 2016-10-03 00:01 | Emergency (ER) | payer MEDICARE ==
[2016-10-03 00:15] VITALS: RESP 18
[2016-10-03 00:48] LABS: Basophils # (A) 0.1 k/uL (0-0.2); Basophils % (A) 2 %; CH 30.1; CHCM 33.9; Eosinophils # (A) 0.3 k/uL (0-0.7); Eosinophils % (A) 4 %; HCT 43.1 % (34.0-46.0); HDW 2.26; HGB 14.3 gm/dL (11.4-16.0); Luc # (Auto) 0.12; Luc % (Auto) 2; Lymphocytes # (A) 2.5 k/uL (1.0-4.8); Lymphocytes % (A) 31 %; MCH 29.6 pg (25.0-35.0); MCHC 33.3 g/dL (31.0-37.0); MCV 88.9 fL (80.0-100.0); Mean Platelet Volume 7.1; Monocytes # (A) 0.4 k/uL (0-1.0); Monocytes % (A) 5 %; Neutrophils # (A) 4.8 k/uL (1.3-7.7); Neutrophils % (A) 58 %; RBC 4.84 m/uL (3.80-5.40); RDW 12.7 % (11.5-15.5); WBC 8.2 k/uL (3.8-10.6); WBC (Perox) 7.86
[2016-10-03 00:58] LABS: ALT 39 U/L (9-52); AST 27 U/L (14-36); Alkaline Phosphatase 94 U/L (38-126); Anion Gap 11 mmol/L; Blood Urea Nitrogen 25 mg/dL (7-17); Calcium 10.5 mg/dL (8.4-10.2); Carbon Dioxide 26 mmol/L (22-30); Chloride 103 mmol/L (98-107); Glucose 93 mg/dL (74-99); Non-African American GFR(MDRD) >60 (>60 ml/min/1.73 sqM); Potassium 3.6 mmol/L (3.5-5.1); Sodium 140 mmol/L (137-145); Total Bilirubin 0.5 mg/dL (0.2-1.3); Total Protein 7.2 g/dL (6.3-8.2)
--- NOTE | 2016-10-03 01:04 | XR ---
EXAM: XR Chest, 2 Views CLINICAL HISTORY: Reason: Pain TECHNIQUE: Frontal and lateral views of the chest. COMPARISON: 09/02/16 portable chest, 03/04/15 two-view chest. FINDINGS: Lungs: Unremarkable. No consolidation. Pleural space: Unremarkable. No effusion or pneumothorax. Heart: Unremarkable. No cardiomegaly. Mediastinum: Unremarkable. Bones/joints: Stable including mild degenerative changes in spine and shoulders. Tubes, lines and devices: There are several EKG wires and leads overlying the chest. IMPRESSION: No new acute intrathoracic abnormality is seen.
--- NOTE | 2016-10-03 01:19 | ED ---
Chest Pain HPI - General Chief Complaint: Chest Pain Stated Complaint: high BP Time Seen by Provider: 10/03/16 00:54 Source: patient Mode of arrival: ambulatory Limitations: no limitations - History of Present Illness Initial Comments: This patient is a 60 year old woman who presents to be evaluated for which she is describing as a "flipping" sensation in her left chest. The patient describes feeling extra beats of the heart and is calling it flipping. She states she has noticed them on the monitor occasionally while waiting to be seen and that she can feel this. She denies other pain, she denies other symptoms. MD Complaint: chest pain Onset/Timin -: hour(s) Onset: during rest Pain Location: left chest Severity: mild Quality: other (Flipping) Consistency: intermittent Improves With: nothing Worsens With: nothing Other Symptoms: palpitations Treatments Prior to Arrival: none - Related Data Home Medications Medication Instructions Recorded Confirmed Aspirin [Adult Low Dose Aspirin EC] 81 mg PO HS@2000 09/12/16 09/12/16 amLODIPine [Norvasc] 10 mg PO DAILY@1300 09/12/16 09/12/16 Previous Rx's Medication Instructions Recorded Atorvastatin [Lipitor] 20 mg PO HS #30 tab 09/13/16 Allergies Allergy/AdvReac Type Severity Reaction Status Date / Time No Known Allergies Allergy Verified 10/03/16 00:15 Review of Systems ROS Statement: Those systems with pertinent positive or pertinent negative responses have been documented in the HPI. ROS Other: All systems not noted in ROS Statement are negative. Constitutional: Denies: fever, chills Respiratory: Denies: cough, dyspnea Cardiovascular: Reports: as per HPI, palpitations. Denies: dyspnea on exertion , orthopnea, edema, syncope Gastrointestinal: Denies: abdominal pain, nausea, vomiting Genitourinary: Denies: dysuria, hematuria Musculoskeletal: Denies: back pain Skin: Denies: rash Neurological: Denies: headache, weakness, numbness Psychiatric: Reports: anxiety EKG Findings - EKG Results: EKG: interpreted by FRANSISCO TAY, sinus rhythm (Rate 76 bpm), normal axis, normal QRS, normal ST/T - VT, Pacemaker, Normal: Normal tracing: normal tracing Past Medical History Past Medical History: GERD/Reflux, Hyperlipidemia, Hypertension, Osteoarthritis (OA) Additional Past Medical History / Comment(s): Low back pain, DDD, PILI SCIATIC NERVE PAIN. History of Any Multi-Drug Resistant Organisms: None Reported Past Surgical History: Joint Replacement Additional Past Surgical History / Comment(s): Total L/R hip arthroplasty, ECTOPIC PREG - LT SALPINGECTOMY. Past Anesthesia/Blood Transfusion Reactions: No Reported Reaction Past Psychological History: No Psychological Hx Reported Additional Psychological History / Comment(s): Pt resides alone. Pt normally is independent with her ADl"s. She drives a car. Smoking Status: Current every day smoker Past Alcohol Use History: None Reported Additional Past Alcohol Use History / Comment(s): Pt states she started smoking at the age of 13 yrs. She has recently cut down from a ppd to 5 cigarettes a day. Past Drug Use History: None Reported - Past Family History Mother Family Medical History: Cancer Additional Family Medical History / Comment(s): Pancreatic with mets. Mother at age 68yrs. Father Family Medical History: Cancer General Exam Limitations: no limitations General appearance: alert, in no apparent distress Head exam: Present: atraumatic, normocephalic, normal inspection Eye exam: Present: normal appearance. Absent: scleral icterus, conjunctival injection ENT exam: Present: normal oropharynx Neck exam: Present: normal inspection Respiratory exam: Present: normal lung sounds bilaterally. Absent: respiratory distress, wheezes, rales, rhonchi, stridor Cardiovascular Exam: Present: regular rate, normal rhythm, normal heart sounds. Absent: systolic murmur, diastolic murmur, rubs, gallop GI/Abdominal exam: Present: soft. Absent: distended, tenderness, guarding, rebound, mass Extremities exam: Present: normal inspection, normal capillary refill. Absent: pedal edema, calf tenderness Back exam: Present: normal inspection. Absent: CVA tenderness (R), CVA tenderness (L) Neurological exam: Present: alert Skin exam: Present: warm, dry, intact, normal color. 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
[2016-10-03 01:38] LABS: Creatine Kinase 96 U/L (30-135)
[2016-10-03 01:51] LABS: Creatine Kinase MB 0.8 ng/mL (0.0-2.4); Troponin I <0.012 ng/mL (0.000-0.034)
[2016-10-03 03:10] VITALS: BP 101/64; PULSE 68; TEMP 97
== END 2016-10-03 03:17 | disposition home or self-care (01) ==
LOC: EC 00:01
DX: R00.2 Palpitations (principal); R07.9 Chest pain, unspecified; I10 Essential (primary) hypertension; M19.90 Unspecified osteoarthritis, unspecified site; F17.210 Nicotine dependence, cigarettes, uncomplicated; Z79.82 Long term (current) use of aspirin; Z79.899 Other long term (current) drug therapy
CPT/HCPCS: 36415; 71020; 80053; 82550; 82553; 84484; 85025; 85379; 93005; 99285

== ENCOUNTER 2016-10-18 15:53 | Observation (INO) | payer MEDICARE ==
[2016-10-18] MEDS ORDERED: ASPIRIN 81 MG CHEW PO STA (16:31)
[2016-10-18] MEDS ORDERED: NITROGLYCERIN OINT 1 INCH/GM PACKET TOPICAL STA (16:31)
--- NOTE | 2016-10-18 16:36 | ED ---
General Adult HPI - General Chief complaint: Arrhythmia/Palpitations Stated complaint: Palpitations Time Seen by Provider: 10/18/16 16:23 Source: patient, family, EMS, RN notes reviewed Mode of arrival: EMS Limitations: no limitations - History of Present Illness Initial comments: Patient is a pleasant 60-year-old female presenting to the emergency department with palpitations. Patient had palpitations throughout the night and most the day. Symptoms have now resolved. Patient did have some chest discomfort starting a few hours ago. Discomfort felt like tightness or squeezing without radiation. Patient was nauseated earlier. Patient was diaphoretic patient had similar symptoms over a year ago diagnosed with angina. At this time patient is near symptom-free. Chest discomfort was previously rated 8 or 9/10. - Related Data Home Medications Medication Instructions Recorded Confirmed Aspirin [Adult Low Dose Aspirin EC] 81 mg PO DAILY 09/12/16 10/18/16 HYDROcodone/APAP 7.5-325MG [[place] 0.5 - 1 tab PO DAILY 10/18/16 10/18/16 7.5-325] Losartan-Hctz 50-12.5 mg [Hyzaar 1 tab PO DAILY 10/18/16 10/18/16 50-12.5] Previous Rx's Medication Instructions Recorded Atorvastatin [Lipitor] 20 mg PO HS #30 tab 09/13/16 Allergies Allergy/AdvReac Type Severity Reaction Status Date / Time No Known Allergies Allergy Verified 10/18/16 16:16 Review of Systems ROS Statement: Those systems with pertinent positive or pertinent negative responses have been documented in the HPI. ROS Other: All systems not noted in ROS Statement are negative. Constitutional: Denies: fever Eyes: Denies: eye pain ENT: Denies: ear pain Respiratory: Reports: dyspnea. Denies: cough Cardiovascular: Reports: chest pain, palpitations Endocrine: Reports: fatigue Gastrointestinal: Denies: abdominal pain Genitourinary: Denies: urgency Musculoskeletal: Denies: back pain Skin: Denies: rash Neurological: Denies: weakness Past Medical History Past Medical History: GERD/Reflux, Hyperlipidemia, Hypertension, Osteoarthritis (OA) Additional Past Medical History / Comment(s): Low back pain, DDD, PILI SCIATIC NERVE PAIN. History of Any Multi-Drug Resistant Organisms: None Reported Past Surgical History: Joint Replacement Additional Past Surgical History / Comment(s): Total L/R hip arthroplasty, ECTOPIC PREG - LT SALPINGECTOMY. Past Anesthesia/Blood Transfusion Reactions: No Reported Reaction Past Psychological History: No Psychological Hx Reported Smoking Status: Current every day smoker Past Alcohol Use History: None Reported Past Drug Use History: None Reported - Past Family History Mother Family Medical History: Cancer Additional Family Medical History / Comment(s): Pancreatic with mets. Mother at age 68yrs. Father Family Medical History: Cancer General Exam Limitations: no limitations General appearance: alert, in no apparent distress Head exam: Present: atraumatic Eye exam: Present: normal appearance, PERRL ENT exam: Present: normal oropharynx Neck exam: Present: normal inspection Respiratory exam: Present: normal lung sounds bilaterally. Absent: chest wall tenderness Cardiovascular Exam: Present: regular rate, normal rhythm Expanded Peripheral pulses: 2+: Radial (R), Radial (L), Dorsalis Pedis (R), Dorsalis Pedis (L) GI/Abdominal exam: Present: soft. Absent: tenderness Extremities exam: Present: normal inspection. Absent: pedal edema, calf tenderness Neurological exam: Present: alert Psychiatric exam: Present: normal affect, normal mood Skin exam: Present: normal color Course Vital Signs 10/18/16 10/18/16 10/18/16 15:55 15:59 17:00 Temperature 98.7 F Pulse Rate 85 72 Respiratory 22 16 Rate Blood Pressure 131/94 131/94 119/81 O2 Sat by Pulse 95 94 L Oximetry 10/18/16 10/18/16 10/18/16 17:15 17:30 17:45 Temperature Pulse Rate 72 68 Respiratory 16 16 Rate Blood Pressure 141/88 114/74 115/78 O2 Sat by Pulse 92 L 94 L Oximetry 10/18/16 10/18/16 18:05 18:15 Temperature Pulse Rate 70 Respiratory 16 Rate Blood Pressure 111/74 112/76 O2 Sat by Pulse 93 L Oximetry EKG Findings - EKG Comments: EKG Findings:: Normal sinus rhythm at 81. W[place] 166. QRS 92. QT 390. QTC 453. Normal axis. Normal QRS. Normal ST-T. Medical Decision Making - Medical Decision Making Patient reevaluated and resting comfortably in bed. Patient symptom-free at this time. Patient and family updated on results and plan. Case was discussed with practitioner Prince, who will admit for Dr. Felder, covering for Dr. Babcock. - Lab Data Result diagrams: 10/18/16 16:25 10/18/16 16:25 Lab Results 10/18/16 10/18/16 10/18/16 Range/Units 16:25 16:25 16:25 WBC 10.0 (3.8-10.6) k/uL RBC 4.91 (3.80-5.40) m/uL Hgb 14.9 (11.4-16.0) gm/dL Hct 43.9 (34.0-46.0) % MCV 89.4 (80.0-100.0) fL MCH 30.4 (25.0-35.0) pg MCHC 34.0 (31.0-37.0) g/dL RDW 12.5 (11.5-15.5) % Plt Count 266 (150-450) k/uL Neutrophils % 70 % Lymphocytes % 23 % Monocytes % 3 % Eosinophils % 2 % Basophils % 1 % Neutrophils # 6.9 (1.3-7.7) k/uL Lymphocytes # 2.3 (1.0-4.8) k/uL Monocytes # 0.3 (0-1.0) k/uL Eosinophils # 0.2 (0-0.7) k/uL Basophils # 0.1 (0-0.2) k/uL PT (9.0-12.0) sec INR (<1.1) APTT (22.0-30.0) sec D-Dimer (<0.60) mg/L FEU Sodium 141 (137-145) mmol/L Potassium 4.0 (3.5-5.1) mmol/L Chloride 103 (98-107) mmol/L Carbon Dioxide 26 (22-30) mmol/L Anion Gap 12 mmol/L BUN 10 (7-17) mg/dL Creatinine 0.84 (0.52-1.04) mg/dL Est GFR (MDRD) Af Amer >60 (>60 ml/min/1.73 sqM) Est GFR (MDRD) Non-Af >60 (>60 ml/min/1.73 sqM) Glucose 121 H (74-99) mg/dL Calcium 9.6 (8.4-10.2) mg/dL Magnesium 2.2 (1.6-2.3) mg/dL Total Bilirubin 0.6 (0.2-1.3) mg/dL AST 31 (14-36) U/L ALT 46 (9-52) U/L Alkaline Phosphatase 102 (38-126) U/L Total Creatine Kinase 52 (30-135) U/L CK-MB (CK-2) 0.6 (0.0-2.4) ng/mL CK-MB (CK-2) Rel Index 1.2 Troponin I <0.012 (0.000-0.034) ng/mL NT-Pro-B Natriuret Pep pg/mL Total Protein 7.9 (6.3-8.2) g/dL Albumin 4.7 (3.5-5.0) g/dL 10/18/16 10/18/16 Range/Units 16:25 16:25 WBC (3.8-10.6) k/uL RBC (3.80-5.40) m/uL Hgb (11.4-16.0) gm/dL Hct (34.0-46.0) % MCV (80.0-100.0) fL MCH (25.0-35.0) pg MCHC (31.0-37.0) g/dL RDW (11.5-15.5) % Plt Count (150-450) k/uL Neutrophils % % Lymphocytes % % Monocytes % % Eosinophils % % Basophils % % Neutrophils # (1.3-7.7) k/uL Lymphocytes # (1.0-4.8) k/uL Monocytes # (0-1.0) k/uL Eosinophils # (0-0.7) k/uL Basophils # (0-0.2) k/uL PT 9.8 (9.0-12.0) sec INR 1.0 (<1.1) APTT 25.1 (22.0-30.0) sec D-Dimer 0.33 (<0.60) mg/L FEU Sodium (137-145) mmol/L Potassium (3.5-5.1) mmol/L Chloride (98-107) mmol/L Carbon Dioxide (22-30) mmol/L Anion Gap mmol/L BUN (7-17) mg/dL Creatinine (0.52-1.04) mg/dL Est GFR (MDRD) Af Amer (>60 ml/min/1.73 sqM) Est GFR (MDRD) Non-Af (>60 ml/min/1.73 sqM) Glucose (74-99) mg/dL Calcium (8.4-10.2) mg/dL Magnesium (1.6-2.3) mg/dL Total Bilirubin (0.2-1.3) mg/dL AST (14-36) U/L ALT (9-52) U/L Alkaline Phosphatase (38-126) U/L Total Creatine Kinase (30-135) U/L CK-MB (CK-2) (0.0-2.4) ng/mL CK-MB (CK-2) Rel Index Troponin I (0.000-0.034) ng/mL NT-Pro-B Natriuret Pep 76 pg/mL Total Protein (6.3-8.2) g/dL Albumin (3.5-5.0) g/dL - Radiology Data Radiology results: image reviewed (Chest x-ray shows no acute process) Critical Care Time Critical Care Time: Yes Total Critical Care Time: 31 Disposition Clinical Impression: Unstable angina, Palpitations Disposition: ADMITTED IP TO THIS HOSP Referrals: Manolo Hackett MD [Primary Care Provider] - 1-2 days Decision Time: 18:42
[2016-10-18 16:41] LABS: Basophils # (A) 0.1 k/uL (0-0.2); Basophils % (A) 1 %; CH 30.6; CHCM 34.4; Eosinophils # (A) 0.2 k/uL (0-0.7); Eosinophils % (A) 2 %; HCT 43.9 % (34.0-46.0); HDW 2.37; HGB 14.9 gm/dL (11.4-16.0); Luc # (Auto) 0.12; Luc % (Auto) 1; Lymphocytes # (A) 2.3 k/uL (1.0-4.8); Lymphocytes % (A) 23 %; MCH 30.4 pg (25.0-35.0); MCV 89.4 fL (80.0-100.0); Monocytes # (A) 0.3 k/uL (0-1.0); Monocytes % (A) 3 %; Neutrophils # (A) 6.9 k/uL (1.3-7.7); Neutrophils % (A) 70 %; RBC 4.91 m/uL (3.80-5.40); RDW 12.5 % (11.5-15.5); WBC (Perox) 9.96
[2016-10-18 16:51] LABS: ALT 46 U/L (9-52); AST 31 U/L (14-36); Alkaline Phosphatase 102 U/L (38-126); Anion Gap 12 mmol/L; Blood Urea Nitrogen 10 mg/dL (7-17); Calcium 9.6 mg/dL (8.4-10.2); Carbon Dioxide 26 mmol/L (22-30); Chloride 103 mmol/L (98-107); Glucose 121 mg/dL (74-99); Magnesium 2.2 mg/dL (1.6-2.3); Non-African American GFR(MDRD) >60 (>60 ml/min/1.73 sqM); Sodium 141 mmol/L (137-145); Total Bilirubin 0.6 mg/dL (0.2-1.3); Total Protein 7.9 g/dL (6.3-8.2)
[2016-10-18 16:55] LABS: Partial Thromboplastin Time 25.1 sec (22.0-30.0); Prothrombin Time 9.8 sec (9.0-12.0)
[2016-10-18 17:00] LABS: Creatine Kinase 52 U/L (30-135)
[2016-10-18 17:12] LABS: Creatine Kinase MB 0.6 ng/mL (0.0-2.4); Troponin I <0.012 ng/mL (0.000-0.034)
--- NOTE | 2016-10-18 17:31 | XR ---
EXAMINATION TYPE: XR chest 2V DATE OF EXAM: 10/18/2016 COMPARISON: 10/03/2016 HISTORY: Chest pain TECHNIQUE: Frontal and lateral views of the chest are obtained. FINDINGS: Heart and mediastinum are normal. Lungs are clear. Diaphragm is normal. There are chest le ads. Bony thorax is intact. IMPRESSION: Normal chest. No change.
[2016-10-18] MEDS ORDERED: HEPARIN SODIUM,PORCINE 5,000 UNIT/ML 1 ML VIAL IV PRN (18:44)
[2016-10-18] MEDS ORDERED: HEPARIN SODIUM,PORCINE 5,000 UNIT/ML 1 ML VIAL IV ONE (18:44)
[2016-10-18] MEDS ORDERED: NITROGLYCERIN SL TABS 0.4 MG TAB SUBLINGUAL PRN (18:44)
[2016-10-18] MEDS ORDERED: HEPARIN SODIUM,PORCINE/D5W PMX 25,000 UNIT in DEXTROSE/WATER 1 500ML.BAG IV SCH (18:45)
[2016-10-18] MEDS ORDERED: MELATONIN 5 MG TABLET PO PRN (21:11)
[2016-10-18] MEDS: HYDROcodone/APAP 7.5-325MG 1 EACH TAB PO PRN (22:03)
[2016-10-18 22:24] VITALS: BMI 28.0
[2016-10-19 00:18] LABS: Creatine Kinase 39 U/L (30-135)
[2016-10-19 00:32] LABS: Creatine Kinase MB 0.4 ng/mL (0.0-2.4); Troponin I <0.012 ng/mL (0.000-0.034)
[2016-10-19 04:57] LABS: Creatine Kinase 35 U/L (30-135)
[2016-10-19 05:10] LABS: Creatine Kinase MB 0.5 ng/mL (0.0-2.4); Troponin I <0.012 ng/mL (0.000-0.034)
[2016-10-19] MEDS: HYDROcodone/APAP 7.5-325MG 1 EACH TAB PO PRN ×2 (05:48→11:52)
[2016-10-19 07:22] LABS: Mean Platelet Volume 7.2
[2016-10-19 07:39] LABS: Cholesterol 145 mg/dL (<200); HDL Cholesterol 60 mg/dL (40-60); Triglycerides 77 mg/dL (<150)
--- NOTE | 2016-10-19 08:21 | P.CRDCN ---
History of Present Illness Consult date: 10/19/16 Requesting physician: Kamran Felder Consult reason: chest pain Chief complaint: Chest pain and palpitations History of present illness: This is a pleasant 52-year-old female who follows with Dr. Null in the office. She has a known history of hypertension, palpitations for which she states she's been experiencing for several years, nicotine dependence, hyperlipidemia, she was recently in the hospital last month at which time she underwent a dobutamine echocardiographic study that was negative for any reversible ischemia, she also underwent an echo at that time which revealed an ejection fraction of 55-60%. She presents to the hospital on this admission with symptoms that initially started as palpitations. Patient states that her blood sugars were low because she had not eaten, she became clammy, had something to eat and states that she noticed significant palpitations. She went outside to do some yard work and then developed chest pressure and heaviness and again became diaphoretic. She does state that she had some difficulty breathing but felt that she may have been hyperventilating because of the pain. EKG on admission showed normal sinus rhythm with no acute changes. Subsequent EKG performed this morning showed normal sinus rhythm with nonspecific ST-T wave changes in V1 and V2. Upon reviewing prior EKGs, patient was noted to have significant T-wave inversion in the anterior leads as well as inferior leads. Blood pressure on admission 130/90 with a heart rate in the 80s. Blood pressure this morning 110/70 with a heart rate in the 50s. CBC normal. D-dimer negative. Potassium 4.0, BUN 10, creatinine 0.8. Troponins negative 3. BNP level normal. Past Medical History Past Medical History: GERD/Reflux, Hyperlipidemia, Hypertension, Osteoarthritis (OA) Additional Past Medical History / Comment(s): Low back pain, DDD, PILI SCIATIC NERVE PAIN. History of Any Multi-Drug Resistant Organisms: None Reported Past Surgical History: Joint Replacement Additional Past Surgical History / Comment(s): Total L/R hip arthroplasty, ECTOPIC PREG - LT SALPINGECTOMY. Past Anesthesia/Blood Transfusion Reactions: No Reported Reaction Past Psychological History: No Psychological Hx Reported Additional Psychological History / Comment(s): Pt resides alone. Pt normally is independent with her ADl"s. She drives a car. Smoking Status: Current every day smoker - Past Family History Mother Family Medical History: Cancer Additional Family Medical History / Comment(s): Pancreatic with mets. Mother at age 68yrs. Father Family Medical History: Cancer Medications and Allergies Home Medications Medication Instructions Recorded Confirmed Type Aspirin [Adult Low Dose Aspirin EC] 81 mg PO DAILY 09/12/16 10/18/16 History HYDROcodone/APAP 7.5-325MG [[place] 0.5 - 1 tab PO DAILY 10/18/16 10/18/16 History 7.5-325] Losartan-Hctz 50-12.5 mg [Hyzaar 1 tab PO DAILY 10/18/16 10/18/16 History 50-12.5] Allergies Allergy/AdvReac Type Severity Reaction Status Date / Time No Known Allergies Allergy Verified 10/18/16 16:16 Physical Exam Vitals: Vital Signs Temp Pulse Pulse Resp BP BP Pulse Ox 10/19/16 04:00 96.9 F L 58 L 14 110/71 97 10/19/16 00:00 67 14 131/80 96 10/18/16 19:58 76 14 10/18/16 19:57 97.5 F L 76 14 106/72 94 L 10/18/16 19:32 74 16 109/71 93 L 10/18/16 18:43 97.9 F 10/18/16 18:15 70 16 112/76 93 L 10/18/16 18:05 111/74 10/18/16 17:45 68 16 115/78 94 L 10/18/16 17:30 72 16 114/74 92 L 10/18/16 17:15 141/88 10/18/16 17:00 72 16 119/81 94 L 10/18/16 15:59 131/94 10/18/16 15:55 98.7 F 85 22 131/94 95 Intake and Output 10/18/16 10/19/16 10/19/16 22:59 06:59 14:59 Other: # Voids 1 Weight 74.09 kg 78.9 kg PHYSICAL EXAMINATION: HEENT: Head is atraumatic, normocephalic. Pupils equal, round. Neck is supple. There is no elevated jugular venous pressure. HEART EXAMINATION: Heart S1, S2 normal. No murmur or gallop heard. CHEST EXAMINATION: Lungs are clear to auscultation and precussion. No chest wall tenderness is noted on palpation or with deep breathing. ABDOMEN: Soft, nontender. Bowel sounds are heard. No organomegaly noted. EXTREMITIES: 2+ peripheral pulses with no evidence of peripheral edema and no calf tenderness noted. NEUROLOGIC patient is awake, alert and oriented -3. . Results 10/19/16 06:41 10/18/16 16:25 Cardiac Enzymes 10/18/16 10/18/16 10/18/16 Range/Units 16:25 16:25 23:35 AST 31 (14-36) U/L CK-MB (CK-2) 0.6 0.4 (0.0-2.4) ng/mL Troponin I <0.012 <0.012 (0.000-0.034) ng/mL 10/19/16 Range/Units 04:20 AST (14-36) U/L CK-MB (CK-2) 0.5 (0.0-2.4) ng/mL Troponin I <0.012 (0.000-0.034) ng/mL Coagulation 10/18/16 10/18/16 10/19/16 Range/Units 16:25 23:35 06:41 PT 9.8 (9.0-12.0) sec APTT 25.1 72.4 H 49.2 H (22.0-30.0) sec Lipids 10/19/16 Range/Units 06:41 Triglycerides 77 (<150) mg/dL Cholesterol 145 (<200) mg/dL HDL Cholesterol 60 (40-60) mg/dL CBC 10/18/16 10/19/16 Range/Units 16:25 06:41 WBC 10.0 (3.8-10.6) k/uL RBC 4.91 (3.80-5.40) m/uL Hgb 14.9 (11.4-16.0) gm/dL Hct 43.9 (34.0-46.0) % Plt Count 266 245 (150-450) k/uL Comprehensive Metabolic Panel 10/18/16 Range/Units 16:25 Sodium 141 (137-145) mmol/L Potassium 4.0 (3.5-5.1) mmol/L Chloride 103 (98-107) mmol/L Carbon Dioxide 26 (22-30) mmol/L BUN 10 (7-17) mg/dL Creatinine 0.84 (0.52-1.04) mg/dL Glucose 121 H (74-99) mg/dL Calcium 9.6 (8.4-10.2) mg/dL AST 31 (14-36) U/L ALT 46 (9-52) U/L Alkaline Phosphatase 102 (38-126) U/L Total Protein 7.9 (6.3-8.2) g/dL Albumin 4.7 (3.5-5.0) g/dL Current Medications Generic Name Dose Route Start Last Admin Trade Name Freq PRN Reason Stop Dose Admin Hydrocodone Bitart/Acetaminophen 1 each 10/18/16 21:09 10/19/16 05:48 [place] 7.5-325 PO 1 each Q6H PRN Administration Pain Aspirin 325 mg 10/19/16 09:00 Aspirin PO DAILY DORIS Atorvastatin Calcium 20 mg 10/19/16 21:00 Lipitor PO HS DORIS Heparin Sodium (Porcine) 0 unit 10/18/16 18:44 Heparin IV Q6HR PRN Low PTT Protocol Heparin Sodium/Dextrose 25,000 500 mls @ 17.74 mls/hr 10/18/16 18:45 19:02 unit/ IV Solution IV 12 units/kg/hr .Q24H DORIS 17.74 mls/hr Protocol Administration 12 UNITS/KG/HR Melatonin 5 mg 10/18/16 21:11 Melatonin PO HS PRN Insomnia Nitroglycerin 0.4 mg 10/18/16 18:44 Nitrostat SUBLINGUAL Q5M PRN Chest Pain Sodium Chloride 10 ml 10/18/16 21:00 10/18/16 22:03 Saline Flush IV 10 ml BID DORIS Administration Intake and Output 10/18/16 10/19/16 10/19/16 22:59 06:59 14:59 Other: # Voids 1 Weight 74.09 kg 78.9 kg 10/19/16 06:41 10/18/16 16:25 EKG Interpretations (text) EKG shows normal sinus rhythm with nonspecific ST-T wave changes Assessment and Plan Plan: Assessment and plan #1 symptoms of palpitations with associated chest pressure and heaviness. Troponins negative 3. EKGs show normal sinus rhythm with nonspecific ST-T wave changes. Dobutamine echocardiographic study performed September 13 negative for any reversible ischemia. Echo performed at that time revealed a normal left ventricular systolic function. #2 hypertension #3 hyperlipidemia #4 nicotine dependence #5 chronic back pain #6 GERD Plan We will discontinue the IV heparin. Discontinue aspirin. Discontinue Nitropaste. Resume losartan. Patient may benefit from 30 day event monitor as an outpatient because of the frequent episodes of palpitations. Further recommendations to follow. DNP note has been reviewed, I agree with a documented findings and plan of care. Patient was seen and examined.
[2016-10-19] MEDS ORDERED: LOSARTAN-HCTZ 50-12.5 MG 1 EACH TAB PO SCH (09:00)
[2016-10-19] MEDS ORDERED: ASPIRIN 325 MG TAB PO SCH (09:00)
--- NOTE | 2016-10-19 09:08 | P.PN ---
Progress Note - Text This is an addendum to the dictated cardiology consultation. The patient presents with symptoms of palpitation and chest discomfort. Her symptoms starts with the palpitations. She has been under a lot of stress recently and feels that that may be contributing to some of her symptoms. She was in the hospital recently and underwent a stress echocardiogram in August 1999 and on September 13 of this year that showed no evidence of inducible ischemia and her left ventricle systolic function was normal echocardiography. She has not been as active physically because of discomfort. She has mild dyspnea but no syncope and no syncope. On her physical examination her lungs are clear and there is no evidence of peripheral edema. Her EKG shows no acute changes and her troponins are unremarkable. The patient presents with symptoms of atypical chest pain and palpitations. On the monitor there is no evidence of malignant arrhythmia. From the cardiac standpoint she will be scheduled to undergo a 24-hour Holter monitor as an outpatient and she will follow-up with Dr. Granados. Thank you for this consult we will follow with you.
[2016-10-19 10:38] VITALS: RESP 18
[2016-10-19 15:07] VITALS: TEMP 97.9
[2016-10-19 16:34] VITALS: BP 103/66; PULSE 59
[2016-10-19] MEDS ORDERED: ATORVASTATIN 20 MG TAB PO SCH (21:00)
--- NOTE | 2016-10-19 22:42 | HP ---
The patient is a 60-year-old female with no known history, came in with complaints of predominantly palpitations and chest pain, appears to be musculoskeletal, reproducible in nature. Patient also has a history of gastroesophageal reflux disease. Patient has acid reflux whenever she drinks coffee, relieves with Tums and patient says pain is nonpleuritic in nature, about 5/10 in severity. Patient was evaluated by Cardiology. Patient had a recent stress test which was negative. Patient's symptoms appear to be mostly anxiety related. The patient appears to drink excessive caffeine, which is also precipitating her palpitations. The patient has multiple episodes of anxiety and the patient has a significant ( ), because of which I believe the patient is depressed as well upon obtaining further history and patient also becomes diaphoretic with these things. Patient was evaluated by Cardiology. Discussed with Cardiology. I believe they think it is mostly episodes of anxiety and part of the palpitations is related to caffeine use. Counseling regarding caffeine use was provided and the patient will be discharged on paroxetine as well as Xanax and the patient will follow up with Dr. Hackett as an outpatient. Patient has reproducible chest pain from her chronic cough without any bronchitis at this point of time. The patient's chest pain is nonpleuritic in nature. Her D-dimer is negative. ROS: All other systems were reviewed and were negative. PAST MEDICAL HISTORY: Gastroesophageal reflux disease, hyperlipidemia, hypertension, osteoarthritis, joint replacement surgery. FAMILY HISTORY: Mother had pancreatic cancer. Brother had cancer. HOME MEDICATIONS: 1. Aspirin. 2. Hydrocodone. 3. Acetaminophen. 4. Losartan. 5. Hydrochlorothiazide. ALLERGIES: No known drug allergies. PHYSICAL EXAMINATION: VITAL SIGNS: Temperature 96.9, pulse of 58, respiratory rate of 14, blood pressure is 110/71, saturating at 97% on room air. GENERAL: The patient is alert and oriented x3, not in any acute distress. Well developed, well nourished. HEENT: Pupils are round and equally reacting to light. EOMI. No scleral icterus. No conjunctival pallor. Normocephalic, atraumatic. No pharyngeal erythema. No thyromegaly. CARDIOVASCULAR: S1 and S2 present. No murmurs, rubs, or gallops. PULMONARY: Chest is clear to auscultation, no wheezing or crackles. ABDOMEN: Soft, nontender, nondistended, normoactive bowel sounds. No palpable organomegaly. MUSCULOSKELETAL: No joint swelling or deformity. EXTREMITIES: No cyanosis, clubbing, or pedal edema. NEUROLOGICAL: Gross neurological examination did not reveal any focal deficits. SKIN: No rashes. LABORATORY DATA: CBC, CMP, troponin and EKG are essentially within normal limits. Chest x-ray did not show any pneumonic process. ASSESSMENT AND PLAN: 1. Chest pain, rule out acute coronary syndrome. Patient has a recent stress test that was negative. The patient's chest pain is musculoskeletal in nature and patient's palpitation episodes are related to her anxiety episodes and depression. Further management as mentioned above. 2. Hypertension. 3. Hyperlipidemia. 4. Nicotine dependence. Counseling was provided. 5. Gastroesophageal reflux disease. 6. Chronic low back pain. 7. For above-mentioned chronic medical problems, patient will continue her home medications, follow up with Dr. Dr. Hackett as an outpatient. DISCHARGE DIET: Cardiac. ACTIVITY: As tolerated. FOLLOWUP: With Dr. Hackett in about 3 to 7 days. [facility]
--- NOTE | 2016-10-29 12:20 | DS ---
Please refer to my H&P for further details of discharge. MTDD
== END 2016-10-19 17:02 | disposition home or self-care (01) ==
LOC: EC 15:53 → 6SEL 18:44
PROVIDERS: ADMIT Internal Medicine; ATTEND Internal Medicine
DX: R00.2 Palpitations (principal); K21.9 Gastro-esophageal reflux disease without esophagitis; F41.9 Anxiety disorder, unspecified; R06.00 Dyspnea, unspecified; E78.5 Hyperlipidemia, unspecified; I10 Essential (primary) hypertension; M19.90 Unspecified osteoarthritis, unspecified site; M54.5 Low back pain; F17.200 Nicotine dependence, unspecified, uncomplicated; G89.29 Other chronic pain; F32.9 Major depressive disorder, single episode, unspecified; R61 Generalized hyperhidrosis; Z79.899 Other long term (current) drug therapy; Z79.82 Long term (current) use of aspirin; Z79.891 Long term (current) use of opiate analgesic
CPT/HCPCS: 96366 ×2; 96376; 96365; 99291; 36415; 93005; 85379; 83880; 80061; 80053; 82550 ×2; 82553 ×2; 83735; 84484 ×2; 85025; 85049; 85610; 85730 ×2; 71020; G0378 ×2; J1644 ×2

== ENCOUNTER 2016-11-27 19:53 | Observation (INO) | payer MEDICARE ==
[2016-11-27] MEDS ORDERED: ALBUTEROL NEBULIZED 2.5 MG/3 ML INHALATION STA (20:31)
[2016-11-27 20:48] LABS: Basophils # (A) 0.1 k/uL (0-0.2); Basophils % (A) 1 %; CH 29.6; Eosinophils # (A) 0.3 k/uL (0-0.7); Eosinophils % (A) 4 %; HCT 40.1 % (34.0-46.0); HDW 2.35; HGB 13.8 gm/dL (11.4-16.0); Luc % (Auto) 1; Lymphocytes # (A) 3.4 k/uL (1.0-4.8); Lymphocytes % (A) 39 %; MCH 30.1 pg (25.0-35.0); MCHC 34.3 g/dL (31.0-37.0); MCV 87.6 fL (80.0-100.0); Mean Platelet Volume 7.5; Monocytes # (A) 0.5 k/uL (0-1.0); Monocytes % (A) 6 %; Neutrophils # (A) 4.5 k/uL (1.3-7.7); Neutrophils % (A) 51 %; RBC 4.57 m/uL (3.80-5.40); RDW 12.8 % (11.5-15.5); WBC 8.9 k/uL (3.8-10.6); WBC (Perox) 8.51
[2016-11-27 20:56] LABS: Partial Thromboplastin Time 24.7 sec (22.0-30.0); Prothrombin Time 10.5 sec (9.0-12.0)
[2016-11-27 20:58] LABS: ALT 40 U/L (9-52); AST 19 U/L (14-36); Alkaline Phosphatase 86 U/L (38-126); Anion Gap 12 mmol/L; Blood Urea Nitrogen 17 mg/dL (7-17); Calcium 9.5 mg/dL (8.4-10.2); Carbon Dioxide 25 mmol/L (22-30); Chloride 104 mmol/L (98-107); Glucose 111 mg/dL (74-99); Non-African American GFR(MDRD) 51 (>60 ml/min/1.73 sqM); Potassium 3.5 mmol/L (3.5-5.1); Sodium 141 mmol/L (137-145); Total Bilirubin 0.3 mg/dL (0.2-1.3); Total Protein 6.7 g/dL (6.3-8.2)
[2016-11-27 21:08] LABS: Creatine Kinase 52 U/L (30-135)
[2016-11-27 21:21] LABS: Creatine Kinase MB 0.7 ng/mL (0.0-2.4); Troponin I <0.012 ng/mL (0.000-0.034)
--- NOTE | 2016-11-27 21:48 | XR ---
EXAMINATION TYPE: XR chest 2V DATE OF EXAM: 11/27/2016 COMPARISON: 10/18/2016 HISTORY: 61-year-old female with difficulty breathing and shortness of breath TECHNIQUE: AP and lateral views FINDINGS: The heart is normal size. Aorta and pulmonary vasculature within normal limits. Mild interstitial pro minence is stable. No consolidation or pleural effusion. IMPRESSION: Chronic changes, possible chronic bronchitis/asthma. No acute process seen.
[2016-11-27] MEDS ORDERED: ONDANSETRON 4 MG/2 ML VIAL IVP PRN (23:53)
[2016-11-27] MEDS ORDERED: NALOXONE 0.4 MG/ML 1 ML VIAL IV PRN (23:53)
[2016-11-27] MEDS ORDERED: ACETAMINOPHEN TAB 325 MG TAB PO PRN (23:53)
[2016-11-28] MEDS ORDERED: ALBUTEROL NEBULIZED 2.5 MG/3 ML INHALATION SCH
--- NOTE | 2016-11-28 00:06 | ED ---
General Adult HPI - General Chief complaint: Shortness of Breath Stated complaint: SOB/Back Pain/Abdominal Swelling Time Seen by Provider: 11/27/16 20:07 Source: patient, RN notes reviewed Mode of arrival: ambulatory Limitations: no limitations - History of Present Illness Initial comments: 61-year-old female presents with 3 days of worsening cough and difficulty breathing. Patient states her cough is productive of clear sputum. She also reports subjective fever and chills. Patient states she has had a chest heaviness. The symptoms do seem to be associated with cough. Nonradiating. No nausea vomiting or diarrhea. Patient also has had palpitations. She has a history of tachycardia. She was recently started on a beta rachel this past week. Since that time she has been feeling palpitations. She was noted to be bradycardic in the emergency department. Patient does have history of tobacco use, currently smoking 2 cigarettes a day. - Related Data Home Medications Medication Instructions Recorded Confirmed HYDROcodone/APAP 7.5-325MG [[place] 0.5 - 1 tab PO DAILY PRN 10/18/16 11/27/16 7.5-325] Losartan-Hctz 50-12.5 mg [Hyzaar 1 tab PO DAILY 10/18/16 11/27/16 50-12.5] Metoprolol Succinate [Toprol XL] 12.5 mg PO DAILY 11/27/16 11/27/16 Previous Rx's Medication Instructions Recorded Atorvastatin [Lipitor] 20 mg PO HS #30 tab 09/13/16 ALPRAZolam [Xanax] 0.25 mg PO TID PRN #20 tab 10/19/16 Allergies Allergy/AdvReac Type Severity Reaction Status Date / Time No Known Allergies Allergy Verified 11/27/16 20:11 Review of Systems ROS Statement: Those systems with pertinent positive or pertinent negative responses have been documented in the HPI. ROS Other: All systems not noted in ROS Statement are negative. Past Medical History Past Medical History: GERD/Reflux, Hyperlipidemia, Hypertension, Osteoarthritis (OA) Additional Past Medical History / Comment(s): Low back pain, DDD, PILI SCIATIC NERVE PAIN. History of Any Multi-Drug Resistant Organisms: None Reported Past Surgical History: Joint Replacement Additional Past Surgical History / Comment(s): Total L/R hip arthroplasty, ECTOPIC PREG - LT SALPINGECTOMY. Past Anesthesia/Blood Transfusion Reactions: No Reported Reaction Past Psychological History: No Psychological Hx Reported Smoking Status: Current every day smoker Past Alcohol Use History: None Reported Past Drug Use History: None Reported - Past Family History Mother Family Medical History: Cancer Additional Family Medical History / Comment(s): Pancreatic with mets. Mother at age 68yrs. Father Family Medical History: Cancer General Exam Limitations: no limitations General appearance: alert, in no apparent distress Head exam: Present: atraumatic, normocephalic Eye exam: Present: normal appearance, PERRL ENT exam: Present: normal exam, mucous membranes moist Neck exam: Present: normal inspection, full ROM. Absent: tenderness Respiratory exam: Present: other (Differential, bronchospastic cough). Absent: respiratory distress, wheezes Cardiovascular Exam: Present: regular rate, normal rhythm GI/Abdominal exam: Present: soft. Absent: distended, tenderness Extremities exam: Present: normal inspection. Absent: pedal edema Back exam: Present: normal inspection Neurological exam: Present: alert, oriented X3. Absent: motor sensory deficit Psychiatric exam: Present: normal affect, normal mood Skin exam: Present: warm, dry. Absent: cyanosis, diaphoretic Course Vital Signs 11/27/16 11/27/16 11/27/16 20:02 20:48 21:00 Temperature 98 F Pulse Rate 74 74 74 Respiratory 24 Rate Blood Pressure 113/67 O2 Sat by Pulse 96 Oximetry 11/27/16 11/27/16 11/27/16 21:04 22:00 23:40 Temperature 97.2 F L Pulse Rate 55 L 60 54 L Respiratory 18 18 18 Rate Blood Pressure 92/54 111/60 105/58 O2 Sat by Pulse 94 L 97 Oximetry - Reevaluation(s) Reevaluation #1: 11/28/16 00:02 Patient is given albuterol the emergency department, and reevaluation she is feeling better, still complaining of palpitations. EKG Findings - EKG Comments: EKG Findings:: EKG shows sinus bradycardia, ventricular 57, TN interval 160, QRS duration 84, QTC 397, there is inverted T waves in V2 V3 and flattening of the T waves in V4 and V5. No ST segment elevation or depression Medical Decision Making - Medical Decision Making 61-year-old female presenting with history of shortness of breath, cough or sputum, and subjective fever or chills. Patient does not have a formal diagnosis COPD but she is a long-time smoker, currently smoking just 2 cigarettes a day. On examination there is good air entry with bronchospastic cough. Patient is given albuterol with improvement in her shortness of breath. She will be started on steroids and given breathing treatments. Patient plans of persistent palpitations while the emergency department, she is sinus bradycardia on the monitor with occasional PVCs. Laboratory studies included CBC, CMP, d-dimer, and cardiac enzymes are unremarkable. Chest x-ray shows findings suggestive of bronchitis. Patient did complain of chest heaviness, this is likely related to her bronchitis, however there is inverted T waves in the precordium, similar when compared to EKG from 10/19/2016 however there is new inversion in V3. Patient's chest heaviness is resolved, only complaint on reevaluation is palpitations. Diagnosis: Acute bronchitis, chest pain-Resolved, palpitations - Lab Data Result diagrams: 11/27/16 20:36 11/27/16 20:36 Lab Results 11/27/16 11/27/16 11/27/16 Range/Units 20:36 20:36 20:36 WBC 8.9 (3.8-10.6) k/uL RBC 4.57 (3.80-5.40) m/uL Hgb 13.8 (11.4-16.0) gm/dL Hct 40.1 (34.0-46.0) % MCV 87.6 (80.0-100.0) fL MCH 30.1 (25.0-35.0) pg MCHC 34.3 (31.0-37.0) g/dL RDW 12.8 (11.5-15.5) % Plt Count 275 (150-450) k/uL Neutrophils % 51 % Lymphocytes % 39 % Monocytes % 6 % Eosinophils % 4 % Basophils % 1 % Neutrophils # 4.5 (1.3-7.7) k/uL Lymphocytes # 3.4 (1.0-4.8) k/uL Monocytes # 0.5 (0-1.0) k/uL Eosinophils # 0.3 (0-0.7) k/uL Basophils # 0.1 (0-0.2) k/uL PT (9.0-12.0) sec INR (<1.2) APTT (22.0-30.0) sec D-Dimer (<0.60) mg/L FEU Sodium 141 (137-145) mmol/L Potassium 3.5 (3.5-5.1) mmol/L Chloride 104 (98-107) mmol/L Carbon Dioxide 25 (22-30) mmol/L Anion Gap 12 mmol/L BUN 17 (7-17) mg/dL Creatinine 1.10 H (0.52-1.04) mg/dL Est GFR (MDRD) Af Amer >60 (>60 ml/min/1.73 sqM) Est GFR (MDRD) Non-Af 51 (>60 ml/min/1.73 sqM) Glucose 111 H (74-99) mg/dL Calcium 9.5 (8.4-10.2) mg/dL Magnesium 2.0 (1.6-2.3) mg/dL Total Bilirubin 0.3 (0.2-1.3) mg/dL AST 19 (14-36) U/L ALT 40 (9-52) U/L Alkaline Phosphatase 86 (38-126) U/L Total Creatine Kinase 52 (30-135) U/L CK-MB (CK-2) 0.7 (0.0-2.4) ng/mL CK-MB (CK-2) Rel Index 1.3 Troponin I <0.012 (0.000-0.034) ng/mL NT-Pro-B Natriuret Pep pg/mL Total Protein 6.7 (6.3-8.2) g/dL Albumin 4.0 (3.5-5.0) g/dL 11/27/16 11/27/16 Range/Units 20:36 20:36 WBC (3.8-10.6) k/uL RBC (3.80-5.40) m/uL Hgb (11.4-16.0) gm/dL Hct (34.0-46.0) % MCV (80.0-100.0) fL MCH (25.0-35.0) pg MCHC (31.0-37.0) g/dL RDW (11.5-15.5) % Plt Count (150-450) k/uL Neutrophils % % Lymphocytes % % Monocytes % % Eosinophils % % Basophils % % Neutrophils # (1.3-7.7) k/uL Lymphocytes # (1.0-4.8) k/uL Monocytes # (0-1.0) k/uL Eosinophils # (0-0.7) k/uL Basophils # (0-0.2) k/uL PT 10.5 (9.0-12.0) sec INR 1.0 (<1.2) APTT 24.7 (22.0-30.0) sec D-Dimer 0.32 (<0.60) mg/L FEU Sodium (137-145) mmol/L Potassium (3.5-5.1) mmol/L Chloride (98-107) mmol/L Carbon Dioxide (22-30) mmol/L Anion Gap mmol/L BUN (7-17) mg/dL Creatinine (0.52-1.04) mg/dL Est GFR (MDRD) Af Amer (>60 ml/min/1.73 sqM) Est GFR (MDRD) Non-Af (>60 ml/min/1.73 sqM) Glucose (74-99) mg/dL Calcium (8.4-10.2) mg/dL Magnesium (1.6-2.3) mg/dL Total Bilirubin (0.2-1.3) mg/dL AST (14-36) U/L ALT (9-52) U/L Alkaline Phosphatase (38-126) U/L Total Creatine Kinase (30-135) U/L CK-MB (CK-2) (0.0-2.4) ng/mL CK-MB (CK-2) Rel Index Troponin I (0.000-0.034) ng/mL NT-Pro-B Natriuret Pep 156 pg/mL Total Protein (6.3-8.2) g/dL Albumin (3.5-5.0) g/dL Disposition Clinical Impression: Acute bronchitis, Chest pain, Palpitations Disposition: ADMITTED IP TO THIS HOSP Referrals: Manolo Hackett MD [Primary Care Provider] - 1-2 days Decision to Admit Reason: Admit from EC Decision Date: 11/28/16 Decision Time: 23:30
[2016-11-28] MEDS ORDERED: ALBUTEROL NEBULIZED 2.5 MG/3 ML INHALATION PRN (00:38)
[2016-11-28 00:54] VITALS: BMI 27.4
[2016-11-28] MEDS: DEXTROSE 5%-0.45% NACL 1,000 ML IV SCH ×2 (01:05→13:46)
[2016-11-28 03:03] LABS: Creatine Kinase 42 U/L (30-135)
[2016-11-28 03:16] LABS: Creatine Kinase MB 0.5 ng/mL (0.0-2.4); Troponin I <0.012 ng/mL (0.000-0.034)
[2016-11-28 08:50] VITALS: RESP 16
[2016-11-28] MEDS ORDERED: predniSONE 20 MG TAB PO SCH (09:00)
[2016-11-28 09:12] LABS: Creatine Kinase 40 U/L (30-135)
[2016-11-28 09:24] LABS: Creatine Kinase MB 0.6 ng/mL (0.0-2.4); Troponin I <0.012 ng/mL (0.000-0.034)
[2016-11-28] MEDS ORDERED: HYDROcodone/APAP 7.5-325MG 1 EACH TAB PO PRN (11:33)
[2016-11-28 12:24] VITALS: BP 133/70; PULSE 60; TEMP 98.3
[2016-11-28] MEDS: LOSARTAN-HCTZ 50-12.5 MG 1 EACH TAB PO SCH ×2 (12:49→13:27)
--- NOTE | 2016-11-28 13:02 | P.HPIM ---
History of Present Illness H&P Date: 11/28/16 (Discharge summary as well) Chief Complaint: Palpitations Subjective 61-year-old female with history of palpitations hypertension comes into the hospital with the complaints of chest pain midsternal in location. Patient states that over the last few days she has had cough that has been productive of yellowish sputum Patient was recently seen by Dr. Null 4 days ago apparently after 24-hour event monitor patient was placed on metoprolol 12.5 mg by mouth daily Patient states that she continues to have intermittent episodes of heart racing Patient states that her chest pain is resolved Patient underwent an outpatient stress is in the recent times At the time of my evaluation patient states that she has some palpitations however on correlating with the telemetry monitoring there were no ectopic beats Did discuss other etiology of being anxious states that she is undergoing a lot of stressors at this time TSH was within normal limits according to her Review of Systems All systems: negative (Noted in the HPI) Past Medical History Past Medical History: GERD/Reflux, Hyperlipidemia, Hypertension, Osteoarthritis (OA) Additional Past Medical History / Comment(s): Low back pain, DDD, PILI SCIATIC NERVE PAIN. History of Any Multi-Drug Resistant Organisms: None Reported Past Surgical History: Joint Replacement Additional Past Surgical History / Comment(s): Total L/R hip arthroplasty, ECTOPIC PREG - LT SALPINGECTOMY. Past Anesthesia/Blood Transfusion Reactions: No Reported Reaction Smoking Status: Current every day smoker - Past Family History Mother Family Medical History: Cancer Additional Family Medical History / Comment(s): Pancreatic with mets. Mother at age 68yrs. Father Family Medical History: Cancer Additional Family Medical History / Comment(s): Small cell carcinoma Medications and Allergies Home Medications Medication Instructions Recorded Confirmed Type HYDROcodone/APAP 7.5-325MG [[place] 1 tab PO DAILY PRN 10/18/16 11/28/16 History 7.5-325] Losartan-Hctz 50-12.5 mg [Hyzaar 1 tab PO DAILY 10/18/16 11/28/16 History 50-12.5] ALPRAZolam [Xanax] 0.25 mg PO BID PRN 11/28/16 11/28/16 History Allergies Allergy/AdvReac Type Severity Reaction Status Date / Time No Known Allergies Allergy Verified 11/28/16 00:43 Physical Exam Vitals: Vital Signs Temp Pulse Pulse Resp BP BP Pulse Ox 11/28/16 12:00 98.3 F 60 16 133/70 95 11/28/16 08:00 97.8 F 50 L 16 104/58 99 11/28/16 07:31 62 11/28/16 07:18 60 100 11/28/16 04:00 97.6 F 48 L 14 112/62 97 11/28/16 01:08 18 11/28/16 00:26 97.7 F 55 L 18 99/59 93 L 11/28/16 00:25 97.6 F 47 L 14 95/62 97 11/28/16 00:18 97.7 F 55 L 18 99/59 93 L 11/27/16 23:40 97.2 F L 54 L 18 105/58 97 11/27/16 22:00 60 18 111/60 11/27/16 21:04 55 L 18 92/54 94 L 11/27/16 21:00 74 11/27/16 20:48 74 11/27/16 20:02 98 F 74 24 113/67 96 Intake and Output 11/27/16 11/28/16 11/28/16 22:59 06:59 14:59 Other: Voiding Method Toilet # Voids 1 Weight 72.575 kg 72.5 kg Physical exam Gen. appearance oriented 3 in no distress Neck is supple no JVD Lungs good air entry clear to auscultation no rhonchi or wheezing Heart S1-S2 heard regular rate and rhythm no murmurs appreciated Abdomen is soft nontender no organomegaly bowel sounds are intact Neurologically cranial nerves II-12 grossly intact no focal motor or sensory deficits noted Skin no abnormalities appreciated Results CBC & Chem 7: 11/27/16 20:36 11/27/16 20:36 Labs: Abnormal Lab Results - Last 24 Hours (Table) 11/27/16 Range/Units 20:36 Creatinine 1.10 H (0.52-1.04) mg/dL Glucose 111 H (74-99) mg/dL Thrombosis Risk Factor Assmnt - Choose All That Apply Each Factor Represents 1 point: Age 41-60 years Thrombosis Risk Factor Assessment Total Risk Factor Score: 1 Thrombosis Risk Factor Assessment Level: Low Risk Assessment and Plan Plan: #1 atypical chest pain ACS is ruled out #2 history of sinus tachyarrhythmia #3 anxiety #4 hypertension #5 ongoing tobacco use #6 acute bronchitis Plan Patient will be discharged on doxycycline for bronchitis Lungs are clear to auscultation Chest pain is atypical ACS is ruled out EKG was within normal limits without ST- T wave changes The underlying palpitations could likely be secondary to some degree of anxiety lower patient's heart rate was elevated to the 130s and 140s in the emergency room Increase dose of her Xanax 2.5 mg twice a day Discharged home to follow-up with Dr. brad Null
--- NOTE | 2016-11-28 13:29 | P.CRDCN ---
History of Present Illness Consult date: 11/28/16 History of present illness: Pt presents to the ED with c/o cough and dyspnea for the last 3 days. She also c /o chest pressure and palpitations. She recently was put on Toprol 12.5mg daily per here PCP for c/o palpitations, 4 days ago. Since she has been in the hospital she has been bradycardic as low as 44 with mutiple PVC's on manager cardiac. She states she takes Toprol at 1800 and did take it last night before coming to hospital. Upon exam she is seen resting in bed in no acute distress. She denies dizziness, chest pain, shortness of breath, nausea or vomiting. She has very recently been worked up from a cardiac standpoint with echocardiogram and dobutamine stress echo. At that time she was recommended to have a 24-hour Holter monitor placed. It is unclear whether or not that was done, there is no documentation in the computer nor at the office. Although this could've been done through her PCP. In light of the bradycardia we will discontinue Toprol. She should follow-up with Dr. Granados in one to 2 weeks. Review of Systems REVIEW OF SYSTEMS: Patient denies any chest discomfort. No shortness of breath. No diaphoresis. He denies headache, dizziness, blurred vision, double vision. No dyspnea on exertion. Patient denies any stomach discomfort. No nausea, vomiting. No hematochezia. No hematemesis. Denies any black stools or blood in his stools. No syncope. No palpitations. No cough. No recent fever or chills. Denies dysuria or hematuria. No muscle weakness or numbness. Past Medical History Past Medical History: GERD/Reflux, Hyperlipidemia, Hypertension, Osteoarthritis (OA) Additional Past Medical History / Comment(s): Low back pain, DDD, PILI SCIATIC NERVE PAIN. History of Any Multi-Drug Resistant Organisms: None Reported Past Surgical History: Joint Replacement Additional Past Surgical History / Comment(s): Total L/R hip arthroplasty, ECTOPIC PREG - LT SALPINGECTOMY. Past Anesthesia/Blood Transfusion Reactions: No Reported Reaction Smoking Status: Current every day smoker - Past Family History Mother Family Medical History: Cancer Additional Family Medical History / Comment(s): Pancreatic with mets. Mother at age 68yrs. Father Family Medical History: Cancer Additional Family Medical History / Comment(s): Small cell carcinoma Medications and Allergies Home Medications Medication Instructions Recorded Confirmed Type HYDROcodone/APAP 7.5-325MG [[place] 1 tab PO DAILY PRN 10/18/16 11/28/16 History 7.5-325] Losartan-Hctz 50-12.5 mg [Hyzaar 1 tab PO DAILY 10/18/16 11/28/16 History 50-12.5] ALPRAZolam [Xanax] 0.25 mg PO BID PRN 11/28/16 11/28/16 History Allergies Allergy/AdvReac Type Severity Reaction Status Date / Time No Known Allergies Allergy Verified 11/28/16 00:43 Physical Exam Vitals: Vital Signs Temp Pulse Pulse Resp BP BP Pulse Ox 11/28/16 08:00 97.8 F 50 L 16 104/58 99 11/28/16 07:31 62 11/28/16 07:18 60 100 11/28/16 04:00 97.6 F 48 L 14 112/62 97 11/28/16 01:08 18 11/28/16 00:26 97.7 F 55 L 18 99/59 93 L 11/28/16 00:25 97.6 F 47 L 14 95/62 97 11/28/16 00:18 97.7 F 55 L 18 99/59 93 L 11/27/16 23:40 97.2 F L 54 L 18 105/58 97 11/27/16 22:00 60 18 111/60 11/27/16 21:04 55 L 18 92/54 94 L 11/27/16 21:00 74 11/27/16 20:48 74 11/27/16 20:02 98 F 74 24 113/67 96 Intake and Output 11/27/16 11/28/16 11/28/16 22:59 06:59 14:59 Other: Voiding Method Toilet # Voids 1 Weight 72.575 kg 72.5 kg GENERAL: This is a []-year-old [] in no apparent distress at the time of my examination. HEENT: Head is atraumatic, normocephalic. Pupils are equal, round. Sclerae anicteric. Conjunctivae are clear. Mucous membranes of the mouth are moist. Neck is supple. There is no jugular venous distention. No carotid bruit is heard. LUNGS: Clear to auscultation and precussion. No chest wall tenderness is noted on palpation or with deep breathing. HEART: Regular rate and rhythm without murmurs, rubs or gallops. S1 and S2 heard. ABDOMEN: Soft, nontender. Bowel sounds are heard. No organomegaly noted. EXTREMITIES: 2+ peripheral pulses with no evidence of peripheral edema and no calf tenderness noted]. NEUROLOGIC: Patient is awake, alert and oriented x3. Results 11/27/16 20:36 11/27/16 20:36 Cardiac Enzymes 11/27/16 11/27/16 11/28/16 Range/Units 20:36 20:36 02:20 AST 19 (14-36) U/L CK-MB (CK-2) 0.7 0.5 (0.0-2.4) ng/mL Troponin I <0.012 <0.012 (0.000-0.034) ng/mL 11/28/16 Range/Units 08:11 AST (14-36) U/L CK-MB (CK-2) 0.6 (0.0-2.4) ng/mL Troponin I <0.012 (0.000-0.034) ng/mL Coagulation 11/27/16 Range/Units 20:36 PT 10.5 (9.0-12.0) sec APTT 24.7 (22.0-30.0) sec CBC 11/27/16 Range/Units 20:36 WBC 8.9 (3.8-10.6) k/uL RBC 4.57 (3.80-5.40) m/uL Hgb 13.8 (11.4-16.0) gm/dL Hct 40.1 (34.0-46.0) % Plt Count 275 (150-450) k/uL Comprehensive Metabolic Panel 11/27/16 Range/Units 20:36 Sodium 141 (137-145) mmol/L Potassium 3.5 (3.5-5.1) mmol/L Chloride 104 (98-107) mmol/L Carbon Dioxide 25 (22-30) mmol/L BUN 17 (7-17) mg/dL Creatinine 1.10 H (0.52-1.04) mg/dL Glucose 111 H (74-99) mg/dL Calcium 9.5 (8.4-10.2) mg/dL AST 19 (14-36) U/L ALT 40 (9-52) U/L Alkaline Phosphatase 86 (38-126) U/L Total Protein 6.7 (6.3-8.2) g/dL Albumin 4.0 (3.5-5.0) g/dL Current Medications Generic Name Dose Route Start Last Admin Trade Name Freq PRN Reason Stop Dose Admin Acetaminophen 650 mg 11/27/16 23:53 Tylenol Tab PO Q6HR PRN Mild Pain or Fever > 100.5 Albuterol Sulfate 2.5 mg 11/28/16 00:38 11/28/16 07:18 Ventolin Nebulized INHALATION 2.5 mg RT-Q4H PRN Administration Shortness Of Breath Or Wheezing Dextrose/Sodium Chloride 1,000 mls @ 75 mls/hr 11/27/16 23:45 11/28/16 01:05 Dextrose 5%-1/2ns Iv Soln IV 75 mls/hr .[id number] DORIS Administration Naloxone HCl 0.2 mg 11/27/16 23:53 Narcan IV Q2M PRN Opioid Reversal Ondansetron HCl 4 mg 11/27/16 23:53 Zofran IVP Q8HR PRN Nausea And Vomiting Prednisone 40 mg 11/28/16 09:00 PO DAILY DORIS Intake and Output 11/27/16 11/28/16 11/28/16 22:59 06:59 14:59 Other: Voiding Method Toilet # Voids 1 Weight 72.575 kg 72.5 kg 11/27/16 20:36 11/27/16 20:36 - EKG Interpretation EKG: no acute changes (T-wave inversion consistent with old EKG) EKG shows: bradycardia Assessment and Plan Plan: ASSESSMENT 1. Atypical chest pain, acute coronary syndrome not suspected. 2. Essential hypertension. 3. Chronic daily smoker. 4. Acute bronchitis. 5. History of tachyarrhythmia. PLAN Patient had very recent cardiac workup with echocardiogram and depending menstrual cycle. Cardiac etiology at this time is highly unlikely. Most likely secondary to pulmonary process, acute bronchitis. We will however discontinue the Toprol due to bradycardia. Patient is stable for discharge home to follow up with Dr. Granados in one to 2 weeks. Nurse Practitioner note has been reviewed, I agree with a documented findings and plan of care. Patient was seen and examined.
== END 2016-11-28 13:50 | disposition home or self-care (01) ==
LOC: EC 19:53 → 3OBS 23:53
PROVIDERS: ADMIT Hospitalist; ATTEND Hospitalist
DX: R07.89 Other chest pain (principal); R00.0 Tachycardia, unspecified; I10 Essential (primary) hypertension; F41.9 Anxiety disorder, unspecified; F17.200 Nicotine dependence, unspecified, uncomplicated; J20.9 Acute bronchitis, unspecified; Z79.899 Other long term (current) drug therapy; M19.90 Unspecified osteoarthritis, unspecified site; M54.5 Low back pain; M79.2 Neuralgia and neuritis, unspecified
CPT/HCPCS: 99285; 36415; 94640 ×2; 94760; 93005; 85379; 83880; 80053; 82550 ×2; 82553 ×2; 83735; 84484 ×2; 85025; 85610; 85730; 71020; G0378 ×2

== ENCOUNTER 2016-12-26 17:19 | Observation (INO) | payer MEDICARE ==
[2016-12-26] MEDS ORDERED: SODIUM CHLORIDE 0.9% 1,000 ML IV STA (17:56)
[2016-12-26] MEDS ORDERED: ASPIRIN 81 MG PO STA (17:56)
--- NOTE | 2016-12-26 18:01 | ED ---
General Adult HPI - General Chief complaint: Arrhythmia/Palpitations Stated complaint: Heart Palputations Time Seen by Provider: 12/26/16 17:49 Source: EMS Mode of arrival: EMS Limitations: no limitations - History of Present Illness Initial comments: This 61-year-old white female presents with a complaint of some palpitations as well as shortness of breath and anxiety and chest pressure. She states that she has been quitting smoking. She is down from 1-1/2 packs per day to 2 cigarettes per day. This afternoon around 3:00 she apparently had a cigarette. She developed some symptoms directly thereafter. She states that her blood pressure was elevated at approximately 170 systolic. She was very anxious. She states that her chest pressure has been present intermittently over the last 1-2 days. She does have a history of anxiety as well. She has had a very hard time quitting smoking. She denies any leg pain or swelling. She denies any history of DVT or PE. She does relate that she had a heart attack approximately 3 months ago. No other complaints or modifying factors. She states that she had a stress test and echocardiogram approximately 3 months ago which apparently was negative. - Related Data Home Medications Medication Instructions Recorded Confirmed HYDROcodone/APAP 7.5-325MG [[place] 0.5 tab PO BID PRN 10/18/16 12/26/16 7.5-325] Losartan-Hctz 50-12.5 mg [Hyzaar 1 tab PO DAILY 10/18/16 12/26/16 50-12.5] ALPRAZolam [Xanax] 0.5 mg PO DAILY 12/26/16 12/26/16 Metoprolol Succinate [Toprol XL] 12.5 mg PO DAILY 12/26/16 12/26/16 Previous Rx's Medication Instructions Recorded Atorvastatin [Lipitor] 20 mg PO HS #30 tab 09/13/16 Allergies Allergy/AdvReac Type Severity Reaction Status Date / Time No Known Allergies Allergy Verified 12/26/16 17:51 Review of Systems ROS Statement: Those systems with pertinent positive or pertinent negative responses have been documented in the HPI. ROS Other: All systems not noted in ROS Statement are negative. Past Medical History Past Medical History: GERD/Reflux, Hyperlipidemia, Hypertension, Osteoarthritis (OA) Additional Past Medical History / Comment(s): Low back pain, DDD, PILI SCIATIC NERVE PAIN. History of Any Multi-Drug Resistant Organisms: None Reported Past Surgical History: Joint Replacement Additional Past Surgical History / Comment(s): Total L/R hip arthroplasty, ECTOPIC PREG - LT SALPINGECTOMY. Past Anesthesia/Blood Transfusion Reactions: No Reported Reaction Past Psychological History: No Psychological Hx Reported Smoking Status: Current every day smoker Past Alcohol Use History: None Reported Past Drug Use History: None Reported - Past Family History Mother Family Medical History: Cancer Additional Family Medical History / Comment(s): Pancreatic with mets. Mother at age 68yrs. Father Family Medical History: Cancer Additional Family Medical History / Comment(s): Small cell carcinoma General Exam - General Exam Comments Initial Comments: GENERAL: The patient is well nourished and well hydrated. VITAL SIGNS: Heart rate, blood pressure, respiratory rate reviewed as recorded in nurse's notes. EYES: Pupils are round and reactive. Extraocular movements are intact. No conjunctival / lid redness or swelling. ENT: No external evidence of injury, swelling, or ecchymosis. Airway is patent. Throat is clear. NECK: Nontender. No swelling or evidence of injury. No subcutaneous emphysema. Trachea is midline. No thyroid mass. HEART: Regular rate and rhythm. Good peripheral pulses. LUNGS/CHEST: Breath sounds clear and equal bilaterally. No rales, rhonchi, or wheezes. No ecchymosis, subcutaneous emphysema, or tenderness. ABDOMEN: Abdomen soft without tenderness. No palpable masses or organomegaly. No peritoneal signs. No abdominal wall swelling or ecchymosis. EXTREMITIES: No extremity tenderness. Normal muscle tone and function. No thoracolumbar tenderness. NEUROLOGIC: Sensation is grossly intact. Cranial nerve exam reveals face is symmetrical, tongue is midline, speech is clear. SKIN: No abrasions or ecchymosis is noted. No induration or masses noted. PSYCHIATRIC: Alert and oriented. Appropriate behavior and judgment. Limitations: no limitations Course Vital Signs 12/26/16 12/26/16 12/26/16 17:27 18:49 19:05 Temperature 98.7 F Pulse Rate 65 62 53 L Respiratory 18 18 Rate Blood Pressure 125/79 110/70 O2 Sat by Pulse 95 95 98 Oximetry 12/26/16 20:31 Temperature Pulse Rate 98 Respiratory 18 Rate Blood Pressure 146/79 O2 Sat by Pulse 100 Oximetry Medical Decision Making - Medical Decision Making The patient was seen and examined. She states that all of her symptoms have resolved at this time. All diagnostics were reviewed. The EKG was completed and does show a sinus bradycardia at a rate of 55. There are multiple ST-T wave changes noted primarily in the anteroseptal lateral and inferior leads. These are compared to old EKG and appear to be similar. There is no ST elevation. The IN intervals 174, QRS duration is 98, and the QTc interval is 409. She does receive an aspirin. The laboratory overall is unremarkable. The chest x-ray does not show any acute processes. She is feeling improved on recheck. Is felt as though she would require admission to the hospital to rule out the possibility of acute coronary syndrome. The possibility of this being related to anxiety certainly is possible as well. She is agreeable to admission. Case is discussed with internal medicine and they're agreeable to admission. - Lab Data Result diagrams: 12/26/16 17:30 12/26/16 17:30 Lab Results 12/26/16 12/26/16 12/26/16 Range/Units 17:30 17:30 17:30 WBC 8.1 (3.8-10.6) k/uL RBC 4.69 (3.80-5.40) m/uL Hgb 14.2 (11.4-16.0) gm/dL Hct 42.3 (34.0-46.0) % MCV 90.0 (80.0-100.0) fL MCH 30.2 (25.0-35.0) pg MCHC 33.5 (31.0-37.0) g/dL RDW 13.6 (11.5-15.5) % Plt Count 270 (150-450) k/uL Neutrophils % 59 % Lymphocytes % 31 % Monocytes % 5 % Eosinophils % 3 % Basophils % 1 % Neutrophils # 4.8 (1.3-7.7) k/uL Lymphocytes # 2.5 (1.0-4.8) k/uL Monocytes # 0.4 (0-1.0) k/uL Eosinophils # 0.3 (0-0.7) k/uL Basophils # 0.1 (0-0.2) k/uL PT (9.0-12.0) sec INR (<1.2) APTT (22.0-30.0) sec Sodium 139 (137-145) mmol/L Potassium 3.4 L (3.5-5.1) mmol/L Chloride 104 (98-107) mmol/L Carbon Dioxide 24 (22-30) mmol/L Anion Gap 11 mmol/L BUN 13 (7-17) mg/dL Creatinine 0.82 (0.52-1.04) mg/dL Est GFR (MDRD) Af Amer >60 (>60 ml/min/1.73 sqM) Est GFR (MDRD) Non-Af >60 (>60 ml/min/1.73 sqM) Glucose 125 H (74-99) mg/dL Calcium 9.3 (8.4-10.2) mg/dL Magnesium 2.0 (1.6-2.3) mg/dL Total Bilirubin 0.3 (0.2-1.3) mg/dL AST 22 (14-36) U/L ALT 35 (9-52) U/L Alkaline Phosphatase 81 (38-126) U/L Total Creatine Kinase 43 (30-135) U/L CK-MB (CK-2) 0.5 (0.0-2.4) ng/mL CK-MB (CK-2) Rel Index 1.2 Troponin I <0.012 (0.000-0.034) ng/mL Total Protein 7.0 (6.3-8.2) g/dL Albumin 4.1 (3.5-5.0) g/dL TSH 1.780 (0.465-4.680) mIU/L 12/26/16 Range/Units 17:30 WBC (3.8-10.6) k/uL RBC (3.80-5.40) m/uL Hgb (11.4-16.0) gm/dL Hct (34.0-46.0) % MCV (80.0-100.0) fL MCH (25.0-35.0) pg MCHC (31.0-37.0) g/dL RDW (11.5-15.5) % Plt Count (150-450) k/uL Neutrophils % % Lymphocytes % % Monocytes % % Eosinophils % % Basophils % % Neutrophils # (1.3-7.7) k/uL Lymphocytes # (1.0-4.8) k/uL Monocytes # (0-1.0) k/uL Eosinophils # (0-0.7) k/uL Basophils # (0-0.2) k/uL PT 10.3 (9.0-12.0) sec INR 1.0 (<1.2) APTT 26.0 (22.0-30.0) sec Sodium (137-145) mmol/L Potassium (3.5-5.1) mmol/L Chloride (98-107) mmol/L Carbon Dioxide (22-30) mmol/L Anion Gap mmol/L BUN (7-17) mg/dL Creatinine (0.52-1.04) mg/dL Est GFR (MDRD) Af Amer (>60 ml/min/1.73 sqM) Est GFR (MDRD) Non-Af (>60 ml/min/1.73 sqM) Glucose (74-99) mg/dL Calcium (8.4-10.2) mg/dL Magnesium (1.6-2.3) mg/dL Total Bilirubin (0.2-1.3) mg/dL AST (14-36) U/L ALT (9-52) U/L Alkaline Phosphatase (38-126) U/L Total Creatine Kinase (30-135) U/L CK-MB (CK-2) (0.0-2.4) ng/mL CK-MB (CK-2) Rel Index Troponin I (0.000-0.034) ng/mL Total Protein (6.3-8.2) g/dL Albumin (3.5-5.0) g/dL TSH (0.465-4.680) mIU/L Disposition Clinical Impression: Dyspnea, Chest pain, Palpitations, Anxiety, Unstable angina, Hypokalemia Disposition: ADMITTED IP TO THIS [facility] Condition: Fair Time of Disposition: 20:39 Decision Date: 12/26/16 Decision Time: 20:39
[2016-12-26 18:09] LABS: Basophils # (A) 0.1 k/uL (0-0.2); Basophils % (A) 1 %; CH 30.9; CHCM 34.4; Eosinophils # (A) 0.3 k/uL (0-0.7); Eosinophils % (A) 3 %; HCT 42.3 % (34.0-46.0); HDW 2.33; HGB 14.2 gm/dL (11.4-16.0); Luc # (Auto) 0.09; Luc % (Auto) 1; Lymphocytes # (A) 2.5 k/uL (1.0-4.8); Lymphocytes % (A) 31 %; MCH 30.2 pg (25.0-35.0); MCHC 33.5 g/dL (31.0-37.0); Mean Platelet Volume 8.3; Monocytes # (A) 0.4 k/uL (0-1.0); Monocytes % (A) 5 %; Neutrophils # (A) 4.8 k/uL (1.3-7.7); Neutrophils % (A) 59 %; RBC 4.69 m/uL (3.80-5.40); RDW 13.6 % (11.5-15.5); WBC 8.1 k/uL (3.8-10.6); WBC (Perox) 7.76
[2016-12-26 18:19] LABS: Prothrombin Time 10.3 sec (9.0-12.0)
[2016-12-26 18:26] LABS: ALT 35 U/L (9-52); AST 22 U/L (14-36); Alkaline Phosphatase 81 U/L (38-126); Anion Gap 11 mmol/L; Blood Urea Nitrogen 13 mg/dL (7-17); Calcium 9.3 mg/dL (8.4-10.2); Carbon Dioxide 24 mmol/L (22-30); Chloride 104 mmol/L (98-107); Glucose 125 mg/dL (74-99); Non-African American GFR(MDRD) >60 (>60 ml/min/1.73 sqM); Potassium 3.4 mmol/L (3.5-5.1); Sodium 139 mmol/L (137-145); Total Bilirubin 0.3 mg/dL (0.2-1.3)
[2016-12-26 18:30] LABS: Creatine Kinase 43 U/L (30-135)
--- NOTE | 2016-12-26 18:39 | XR ---
EXAMINATION TYPE: XR chest 2V DATE OF EXAM: 12/26/2016 COMPARISON: 11/27/2016 HISTORY: Dysrhythmia TECHNIQUE: Frontal and lateral views of the chest are obtained. FINDINGS: Heart and mediastinum are normal. Lungs are clear. Diaphragm is normal. There are chest le ads. Bony thorax is intact. IMPRESSION: Normal chest. No change.
[2016-12-26 18:43] LABS: Creatine Kinase MB 0.5 ng/mL (0.0-2.4); Troponin I <0.012 ng/mL (0.000-0.034)
[2016-12-26] MEDS ORDERED: HEPARIN SODIUM,PORCINE 5,000 UNIT/ML 1 ML VIAL IV ONE (20:40)
[2016-12-26] MEDS ORDERED: HEPARIN SODIUM,PORCINE 5,000 UNIT/ML 1 ML VIAL IV PRN (20:40)
[2016-12-26] MEDS ORDERED: NITROGLYCERIN SL TABS 0.4 MG TAB SUBLINGUAL PRN (20:40)
[2016-12-26] MEDS ORDERED: ALPRAZolam 0.5 MG TAB PO PRN (20:43)
[2016-12-26] MEDS ORDERED: HYDROcodone/APAP 7.5-325MG 1 EACH TAB PO PRN (20:43)
[2016-12-26] MEDS ORDERED: HEPARIN SODIUM,PORCINE/D5W PMX 25,000 UNIT in DEXTROSE/WATER 1 500ML.BAG IV SCH (20:45)
[2016-12-26] MEDS ORDERED: ATORVASTATIN 20 MG TAB PO SCH (21:00)
[2016-12-26 21:10] VITALS: RESP 16
[2016-12-26 21:39] VITALS: BMI 28.3
[2016-12-27 00:36] LABS: Creatine Kinase 36 U/L (30-135)
[2016-12-27 00:50] LABS: Creatine Kinase MB 0.5 ng/mL (0.0-2.4); Troponin I <0.012 ng/mL (0.000-0.034)
[2016-12-27 05:44] LABS: Creatine Kinase 35 U/L (30-135)
[2016-12-27 05:47] LABS: Mean Platelet Volume 7.5
[2016-12-27 05:55] LABS: Creatine Kinase MB 0.5 ng/mL (0.0-2.4); Troponin I <0.012 ng/mL (0.000-0.034)
[2016-12-27 06:27] LABS: Cholesterol 96 mg/dL (<200); HDL Cholesterol 39 mg/dL (40-60)
[2016-12-27] MEDS ORDERED: ASPIRIN 325 MG TAB PO SCH (09:00)
[2016-12-27] MEDS ORDERED: METOPROLOL SUCCINATE (ER) 25 MG TAB.ER.24H PO SCH (09:00)
[2016-12-27] MEDS ORDERED: LOSARTAN-HCTZ 50-12.5 MG 1 EACH TAB PO SCH (09:00)
[2016-12-27 11:52] VITALS: BP 120/73; PULSE 54; TEMP 97.9
[2016-12-27] MEDS ORDERED: POTASSIUM CHLORIDE ER 20 MEQ TAB.ER PO STA (12:07)
--- NOTE | 2016-12-27 12:21 | P.CRDCN ---
History of Present Illness Consult date: 12/27/16 History of present illness: This is a 61-year-old female. Past medical history significant for hyperlipidemia and hypertension. Patient presents with complaints of chest heaviness and palpitations. She states this started on Monday in the early afternoon and lasted all day. She states it went away on its own in the evening and was not associated with any other symptoms such as shortness of breath, dizziness, nausea or vomiting. Yesterday she was out in the yard doing some light yard work when she began to feel palpitations, shortness of breath and chest pressure again. She states she checked her blood pressure at home and it was 170 systolic with a heart rate of 138. She states when she presented to the hospital the symptoms had subsided and her heart rate it gone back to normal. She does suffer from anxiety and is a chronic tobacco abuser. She states she is trying to cut back but still smokes 2 cigarettes per day. She had a recent stress test August of this year which was normal. She presented with similar symptoms in the end of October and was found to have bronchitis. At that time we advised the patient to discontinue her Toprol due to bradycardia. However she was directed by Dr. Hackett to continue. Since being in the hospital she has been bradycardic between 40 and 50 heart rate on the monitor. She was 24-hour Holter monitor October 20 which showed heart rate as low as 40 and as high as 133. The patient had multiple episodes where she indicated she was feeling palpitations. All both times she was in normal sinus mechanism with a controlled heart rate. EKG done shows sinus bradycardia with nonspecific T-wave abnormalities, rate of 55 beats per minute. When compared with old EKG this appears consistent. CBC was within normal limits, coagulation profile at baseline. Potassium 3.4. Troponin negative 3. TSH 1.78. Chest x-ray showed no acute cardiopulmonary process. Most recent echo dated 09/02/2016 indicates preserved left ventricular function with ejection fraction of 55-60%, mild aortic sclerosis, mild mitral calcification, mild mitral regurgitation, mild tricuspid regurgitation, no evidence of pulmonary hypertension, borderline concentric left ventricular hypertrophy. Mr. syncope remained stress echo was completed in August 2016 was negative for ischemia. Review of Systems REVIEW OF SYSTEMS: Patient denies any chest discomfort. No shortness of breath. No diaphoresis. Denies headache, dizziness, blurred vision, double vision. No dyspnea on exertion. Patient denies any stomach discomfort. No nausea, vomiting. No hematochezia. No hematemesis. Denies any black stools or blood in his stools. No syncope. No palpitations since being in the hospital. No cough. No recent fever or chills. No muscle weakness or numbness. Past Medical History Past Medical History: GERD/Reflux, Hyperlipidemia, Hypertension, Osteoarthritis (OA) Additional Past Medical History / Comment(s): Low back pain, DDD, PILI SCIATIC NERVE PAIN. History of Any Multi-Drug Resistant Organisms: None Reported Past Surgical History: Joint Replacement Additional Past Surgical History / Comment(s): Total L/R hip arthroplasty, ECTOPIC PREG - LT SALPINGECTOMY. Past Anesthesia/Blood Transfusion Reactions: No Reported Reaction Past Psychological History: No Psychological Hx Reported Additional Psychological History / Comment(s): Pt resides alone. Pt normally is independent with her ADl"s. She drives a car. Smoking Status: Current some day smoker Past Alcohol Use History: None Reported Additional Past Alcohol Use History / Comment(s): Pt states she started smoking at the age of 13 yrs. She has recently cut down from a ppd to 2 cigarettes a day. Past Drug Use History: None Reported - Past Family History Mother Family Medical History: Cancer Additional Family Medical History / Comment(s): Pancreatic with mets. Mother at age 68yrs. Father Family Medical History: Cancer Additional Family Medical History / Comment(s): Small cell carcinoma Medications and Allergies Home Medications Medication Instructions Recorded Confirmed Type HYDROcodone/APAP 7.5-325MG [[place] 0.5 tab PO BID PRN 10/18/16 12/26/16 History 7.5-325] Losartan-Hctz 50-12.5 mg [Hyzaar 1 tab PO DAILY 10/18/16 12/26/16 History 50-12.5] ALPRAZolam [Xanax] 0.5 mg PO DAILY 12/26/16 12/26/16 History Allergies Allergy/AdvReac Type Severity Reaction Status Date / Time No Known Allergies Allergy Verified 12/26/16 17:51 Physical Exam Vitals: Vital Signs Temp Pulse Pulse Resp BP BP Pulse Ox 12/27/16 07:08 98.1 F 16 12/27/16 07:00 50 L 94/54 12/27/16 03:42 98.0 F 47 L 16 91/55 95 12/27/16 03:29 47 L 16 12/26/16 23:19 97.7 F 66 16 116/68 100 12/26/16 23:10 56 L 16 12/26/16 21:44 97.8 F 50 L 16 108/61 95 12/26/16 21:08 97.1 F L 70 16 120/87 97 12/26/16 20:31 98 18 146/79 100 12/26/16 19:05 53 L 98 12/26/16 18:49 62 18 110/70 95 12/26/16 17:27 98.7 F 65 18 125/79 95 Intake and Output 12/26/16 12/27/16 12/27/16 22:59 06:59 14:59 Intake Total 112.849 Balance 112.849 Intake: Intake, IV Titration 112.849 Amount Heparin Sodium,Porcine/ 112.849 D5w Pmx 25,000 unit In Dextrose/Water 1 500ml. bag @ 12 UNITS/KG/HR 17. 96 mls/hr IV .Q24H [facility] Rx #:[id number] Other: Voiding Method Toilet # Voids 2 2 Weight 74.843 kg GENERAL: This is a 61-year-old occasion female in no apparent distress at the time of my examination. Moderately anxious. HEENT: Head is atraumatic, normocephalic. Pupils are equal, round. Sclerae anicteric. Conjunctivae are clear. Mucous membranes of the mouth are moist. Neck is supple. There is no jugular venous distention. No carotid bruit is heard. LUNGS: Clear to auscultation no wheezes, rales or rhonchi. No chest wall tenderness is noted on palpation or with deep breathing. Diminished air entry. HEART: Regular rate and rhythm without murmurs, rubs or gallops. S1 and S2 heard. ABDOMEN: Soft, nontender. Bowel sounds are heard. No organomegaly noted. EXTREMITIES: 2+ peripheral pulses with no evidence of peripheral edema and no calf tenderness noted. NEUROLOGIC: Patient is awake, alert and oriented x3. Results 12/27/16 05:09 12/26/16 17:30 Cardiac Enzymes 12/26/16 12/26/16 12/27/16 Range/Units 17:30 17:30 00:03 AST 22 (14-36) U/L CK-MB (CK-2) 0.5 0.5 (0.0-2.4) ng/mL Troponin I <0.012 <0.012 (0.000-0.034) ng/mL 12/27/16 Range/Units 05:09 AST (14-36) U/L CK-MB (CK-2) 0.5 (0.0-2.4) ng/mL Troponin I <0.012 (0.000-0.034) ng/mL Coagulation 12/26/16 12/27/16 Range/Units 17:30 02:42 PT 10.3 (9.0-12.0) sec APTT 26.0 77.4 H (22.0-30.0) sec Lipids 12/27/16 Range/Units 05:09 Triglycerides 99 (<150) mg/dL Cholesterol 96 (<200) mg/dL HDL Cholesterol 39 L (40-60) mg/dL CBC 12/26/16 12/27/16 Range/Units 17:30 05:09 WBC 8.1 (3.8-10.6) k/uL RBC 4.69 (3.80-5.40) m/uL Hgb 14.2 (11.4-16.0) gm/dL Hct 42.3 (34.0-46.0) % Plt Count 270 220 (150-450) k/uL Comprehensive Metabolic Panel 12/26/16 Range/Units 17:30 Sodium 139 (137-145) mmol/L Potassium 3.4 L (3.5-5.1) mmol/L Chloride 104 (98-107) mmol/L Carbon Dioxide 24 (22-30) mmol/L BUN 13 (7-17) mg/dL Creatinine 0.82 (0.52-1.04) mg/dL Glucose 125 H (74-99) mg/dL Calcium 9.3 (8.4-10.2) mg/dL AST 22 (14-36) U/L ALT 35 (9-52) U/L Alkaline Phosphatase 81 (38-126) U/L Total Protein 7.0 (6.3-8.2) g/dL Albumin 4.1 (3.5-5.0) g/dL Current Medications Generic Name Dose Route Start Last Admin Trade Name Freq PRN Reason Stop Dose Admin Hydrocodone Bitart/Acetaminophen 0.5 each 12/26/16 20:43 12/27/16 01:08 [place] 7.5-325 PO 0.5 each BID PRN Administration Pain Alprazolam 0.5 mg 12/26/16 20:43 Xanax PO Q8H PRN Anxiety Aspirin 325 mg 12/27/16 09:00 Aspirin PO DAILY [facility] Atorvastatin Calcium 20 mg 12/26/16 21:00 12/26/16 22:31 Lipitor PO Not Given HS [facility] HCTZ/Losartan Potassium 1 each 12/27/16 09:00 Hyzaar 50-12.5 PO DAILY [facility] Heparin Sodium (Porcine) 0 unit 12/26/16 20:40 Heparin IV Q6HR PRN Low PTT Protocol Heparin Sodium/Dextrose 25,000 500 mls @ 17.96 mls/hr 12/26/16 20:45 03:13 unit/ IV Solution IV 10.02 units/kg/hr .Q24H [facility] 15 mls/hr Protocol Titration 12 UNITS/KG/HR Metoprolol Succinate 12.5 mg 12/27/16 09:00 Toprol Xl PO DAILY [facility] Nitroglycerin 0.4 mg 12/26/16 20:40 Nitrostat SUBLINGUAL Q5M PRN Chest Pain Intake and Output 12/26/16 12/27/16 12/27/16 22:59 06:59 14:59 Intake Total 112.849 Balance 112.849 Intake: Intake, IV Titration 112.849 Amount Heparin Sodium,Porcine/ 112.849 D5w Pmx 25,000 unit In Dextrose/Water 1 500ml. bag @ 12 UNITS/KG/HR 17. 96 mls/hr IV .Q24H [facility] Rx #:[id number] Other: Voiding Method Toilet # Voids 2 2 Weight 74.843 kg 12/27/16 05:09 12/26/16 17:30 EKG Interpretations (text) EKG indicates sinus bradycardia with nonspecific T-wave abnormality. Consistent with old EKG. Assessment and Plan Plan: ASSESSMENT 1. Palpitations 2. History of anxiety 3. Essential hypertension PLAN Due to bradycardia we will discontinue Toprol. This has been discussed with the patient and she has been advised to not restart this medication and was advised per Dr. Granados. She verbalizes understanding and is agreeable. We will apply a 30 day event monitor with instructions for use. The patient is to follow-up with Dr. Granados in the office in 2 weeks. Nurse Practitioner note has been reviewed, I agree with a documented findings and plan of care. Patient was seen and examined.
--- NOTE | 2016-12-27 13:26 | P.HPIM ---
History of Present Illness This is a 61-year-old female. Past medical history significant for hyperlipidemia and hypertension. Patient presents with complaints of chest heaviness and palpitations. She states this started on Monday in the early afternoon and lasted all day. She states it went away on its own in the evening and was not associated with any other symptoms such as shortness of breath, dizziness, nausea or vomiting. Yesterday she was out in the yard doing some light yard work when she began to feel palpitations, shortness of breath and chest pressure again. She states she checked her blood pressure at home and it was 170 systolic with a heart rate of 138. She states when she presented to the hospital the symptoms had subsided and her heart rate it gone back to normal. She does suffer from anxiety and is a chronic tobacco abuser. She states she is trying to cut back but still smokes 2 cigarettes per day. She had a recent stress test August of this year which was normal. She presented with similar symptoms in the end of October and was found to have bronchitis. Since being in the hospital she has been bradycardic between 40 and 50 heart rate on the monitor. She was 24-hour Holter monitor October 20 which showed heart rate as low as 40 and as high as 133. The patient had multiple episodes where she indicated she was feeling palpitations. All both times she was in normal sinus mechanism with a controlled heart rate. EKG done shows sinus bradycardia with nonspecific T-wave abnormalities, rate of 55 beats per minute. When compared with old EKG this appears consistent. CBC was within normal limits, coagulation profile at baseline. Potassium 3.4. Troponin negative 3. TSH 1.78. Chest x-ray showed no acute cardiopulmonary process. Most recent echo dated 09/02/2016 indicates preserved left ventricular function with ejection fraction of 55-60%, mild aortic sclerosis, mild mitral calcification, mild mitral regurgitation, mild tricuspid regurgitation, no evidence of pulmonary hypertension, borderline concentric left ventricular hypertrophy. Mr. syncope remained stress echo was completed in August 2016 was negative for ischemia. Patient's blood pressure is also low because of which her antidepressant his medications are being discontinued and patient's metoprolol is being this can urine as well and patient will be discharged with extensive counseling to quit smoking. Review of Systems REVIEW OF SYSTEMS: CONSTITUTIONAL: No fever, no malaise, no fatigue. HEENT: No recent visual problems or hearing problems. Denied any sore throat. CARDIOVASCULAR: No chest pain, orthopnea, PND, no palpitations, no syncope. PULMONARY: No shortness of breath, no cough, no hemoptysis. GASTROINTESTINAL: No diarrhea, no nausea, no vomiting, no abdominal pain. Normoactive bowel sounds. NEUROLOGICAL: No headaches, no weakness, no numbness. HEMATOLOGICAL: Denies any bleeding or petechiae. GENITOURINARY: Denies any burning micturition, frequency, or urgency. MUSCULOSKELETAL/RHEUMATOLOGICAL: Denies any joint pain, swelling, or any muscle pain. ENDOCRINE: Denies any polyuria or polydipsia. The rest of the 14-point review of systems is negative. Past Medical History Past Medical History: GERD/Reflux, Hyperlipidemia, Hypertension, Osteoarthritis (OA) Additional Past Medical History / Comment(s): Low back pain, DDD, PILI SCIATIC NERVE PAIN. History of Any Multi-Drug Resistant Organisms: None Reported Past Surgical History: Joint Replacement Additional Past Surgical History / Comment(s): Total L/R hip arthroplasty, ECTOPIC PREG - LT SALPINGECTOMY. Past Anesthesia/Blood Transfusion Reactions: No Reported Reaction Past Psychological History: No Psychological Hx Reported Additional Psychological History / Comment(s): Pt resides alone. Pt normally is independent with her ADl"s. She drives a car. Smoking Status: Current some day smoker Past Alcohol Use History: None Reported Additional Past Alcohol Use History / Comment(s): Pt states she started smoking at the age of 13 yrs. She has recently cut down from a ppd to 2 cigarettes a day. Past Drug Use History: None Reported - Past Family History Mother Family Medical History: Cancer Additional Family Medical History / Comment(s): Pancreatic with mets. Mother at age 68yrs. Father Family Medical History: Cancer Additional Family Medical History / Comment(s): Small cell carcinoma Medications and Allergies Home Medications Medication Instructions Recorded Confirmed Type HYDROcodone/APAP 7.5-325MG [[place] 0.5 tab PO BID PRN 10/18/16 12/26/16 History 7.5-325] ALPRAZolam [Xanax] 0.5 mg PO DAILY 12/26/16 12/26/16 History Allergies Allergy/AdvReac Type Severity Reaction Status Date / Time No Known Allergies Allergy Verified 12/26/16 17:51 Physical Exam Vitals: Vital Signs Temp Pulse Pulse Resp BP BP Pulse Ox 12/27/16 11:50 97.9 F 54 L 16 120/73 93 L 12/27/16 07:08 98.1 F 16 12/27/16 07:00 50 L 94/54 12/27/16 03:42 98.0 F 47 L 16 91/55 95 12/27/16 03:29 47 L 16 12/26/16 23:19 97.7 F 66 16 116/68 100 12/26/16 23:10 56 L 16 12/26/16 21:44 97.8 F 50 L 16 108/61 95 12/26/16 21:08 97.1 F L 70 16 120/87 97 12/26/16 20:31 98 18 146/79 100 12/26/16 19:05 53 L 98 12/26/16 18:49 62 18 110/70 95 12/26/16 17:27 98.7 F 65 18 125/79 95 Intake and Output 12/26/16 12/27/16 12/27/16 22:59 06:59 14:59 Intake Total 112.849 236 Balance 112.849 236 Intake: Intake, IV Titration 112.849 Amount Heparin Sodium,Porcine/ 112.849 D5w Pmx 25,000 unit In Dextrose/Water 1 500ml. bag @ 12 UNITS/KG/HR 17. 96 mls/hr IV .Q24H [facility] Rx #:[id number] Oral 236 Other: Voiding Method Toilet Toilet # Voids 2 2 Weight 74.843 kg Results CBC & Chem 7: 12/27/16 05:09 12/26/16 17:30 Labs: Abnormal Lab Results - Last 24 Hours (Table) 12/26/16 12/27/16 12/27/16 Range/Units 17:30 02:42 05:09 APTT 77.4 H (22.0-30.0) sec Potassium 3.4 L (3.5-5.1) mmol/L Glucose 125 H (74-99) mg/dL HDL Cholesterol 39 L (40-60) mg/dL Thrombosis Risk Factor Assmnt - Choose All That Apply Each Factor Represents 1 point: Age 41-60 years Thrombosis Risk Factor Assessment Total Risk Factor Score: 1 Thrombosis Risk Factor Assessment Level: Low Risk Assessment and Plan Plan: #1 chest pain: Rule out acute coronary syndromes patient is a recent stress test and cardiology cleared for discharge. #2 episodes of tachycardia and bradycardia: Patient is being discharged with an event monitor for 30 days and follow with cardiology as an outpatient. #3 anxiety disorder #4 COPD without any acute exacerbation. #5 hyperlipidemia #6 hypertension: Patient is hypotensive because of which her antidepressant medications are being discontinued.
--- NOTE | 2016-12-27 13:27 | P.DS ---
Providers Date of admission: 12/26/16 20:40 Attending physician: May Pryor Consults: 12/26/16 20:40 Consult Physician Urgent Consulting Provider: Rodney Ko Consult Reason/Comments: cp and sob Do you want consulting provider notified?: Yes Primary care physician: Lew Lara [facility] Course: Please refer to HPI Patient Condition at Discharge: Fair Plan - Discharge Summary New Discharge Prescriptions: Discontinued Losartan-Hctz 50-12.5 mg [Hyzaar 50-12.5] 1 tab PO DAILY Metoprolol Succinate [Toprol XL] 12.5 mg PO DAILY No Action Atorvastatin [Lipitor] 20 mg PO HS #30 tab HYDROcodone/APAP 7.5-325MG [[place] 7.5-325] 0.5 tab PO BID PRN PRN Reason: Pain ALPRAZolam [Xanax] 0.5 mg PO DAILY Discharge Medication List Atorvastatin [Lipitor] 20 mg PO HS #30 tab 09/13/16 [Rx] HYDROcodone/APAP 7.5-325MG [[place] 7.5-325] 0.5 tab PO BID PRN 10/18/16 [History] ALPRAZolam [Xanax] 0.5 mg PO DAILY 12/26/16 [History] Follow up Appointment(s)/Referral(s): Manolo Hackett MD [Primary Care Provider] - 1 Week Rhett Granados MD [STAFF PHYSICIAN] - 01/09/17 1:45 pm Patient Instructions/Handouts: Holter Monitoring (GEN) Discharge Disposition: HOME SELF-CARE
== END 2016-12-27 14:43 | disposition home or self-care (01) ==
LOC: EC 17:19 → 3OBS 20:40
PROVIDERS: ADMIT Internal Medicine; ATTEND Internal Medicine
DX: R07.89 Other chest pain (principal); R00.2 Palpitations; R06.02 Shortness of breath; R00.1 Bradycardia, unspecified; R00.0 Tachycardia, unspecified; F41.9 Anxiety disorder, unspecified; J44.9 Chronic obstructive pulmonary disease, unspecified; E78.5 Hyperlipidemia, unspecified; I10 Essential (primary) hypertension; I95.9 Hypotension, unspecified; F17.210 Nicotine dependence, cigarettes, uncomplicated; Z79.899 Other long term (current) drug therapy; M19.90 Unspecified osteoarthritis, unspecified site; M54.5 Low back pain; E87.6 Hypokalemia
CPT/HCPCS: 96361 ×4; 96376 ×2; 96365 ×2; 93005 ×2; 96366 ×2; 99285; 36415; 93270; 93271; 80061; 80053; 82550 ×2; 82553 ×2; 83735; 84443; 84484 ×2; 85025; 85049; 85610; 85730 ×2; 71020; G0378 ×2; J1644 ×2

== ENCOUNTER 2016-12-31 16:55 | Emergency (ER) | payer MEDICARE ==
--- NOTE | 2016-12-31 17:16 | ED ---
General Adult HPI - General Stated complaint: Cardiac Time Seen by Provider: 12/31/16 16:57 Source: RN notes reviewed, old records reviewed - History of Present Illness Initial comments: This is a 61-year-old female here for evaluation of chest pain. Patient has multiple recent evaluations regarding chest pain. Patient admits recent evaluations and hospitalization for chest pain. Patient states she felt palpitations earlier today out psychiatric. Does admit to history of anxiety. No prior history of significant cardiac disease. Patient does have cardiac risk factors. No cough congestion or shortness of breath, no fevers or diaphoresis - Related Data Home Medications Medication Instructions Recorded Confirmed HYDROcodone/APAP 7.5-325MG [[place] 0.5 tab PO BID PRN 10/18/16 12/31/16 7.5-325] ALPRAZolam [Xanax] 0.5 mg PO DAILY 12/26/16 12/31/16 Previous Rx's Medication Instructions Recorded Atorvastatin [Lipitor] 20 mg PO HS #30 tab 09/13/16 Allergies Allergy/AdvReac Type Severity Reaction Status Date / Time No Known Allergies Allergy Verified 12/31/16 17:20 Review of Systems ROS Statement: Those systems with pertinent positive or pertinent negative responses have been documented in the HPI. ROS Other: All systems not noted in ROS Statement are negative. Past Medical History Past Medical History: GERD/Reflux, Hyperlipidemia, Hypertension, Osteoarthritis (OA) Additional Past Medical History / Comment(s): Low back pain, DDD, PILI SCIATIC NERVE PAIN. History of Any Multi-Drug Resistant Organisms: None Reported Past Surgical History: Joint Replacement Additional Past Surgical History / Comment(s): Total L/R hip arthroplasty, ECTOPIC PREG - LT SALPINGECTOMY. Past Anesthesia/Blood Transfusion Reactions: No Reported Reaction Past Psychological History: No Psychological Hx Reported Additional Psychological History / Comment(s): Pt resides alone. Pt normally is independent with her ADl"s. She drives a car. Smoking Status: Current some day smoker Past Alcohol Use History: None Reported Additional Past Alcohol Use History / Comment(s): Pt states she started smoking at the age of 13 yrs. She has recently cut down from a ppd to 2 cigarettes a day. Past Drug Use History: None Reported - Past Family History Mother Family Medical History: Cancer Additional Family Medical History / Comment(s): Pancreatic with mets. Mother at age 68yrs. Father Family Medical History: Cancer Additional Family Medical History / Comment(s): Small cell carcinoma General Exam General appearance: alert, in no apparent distress, anxious Head exam: Present: atraumatic, normocephalic, normal inspection Eye exam: Present: normal appearance, PERRL, EOMI. Absent: scleral icterus, conjunctival injection, periorbital swelling ENT exam: Present: normal exam, mucous membranes moist Neck exam: Present: normal inspection. Absent: tenderness, meningismus, lymphadenopathy Respiratory exam: Present: normal lung sounds bilaterally. Absent: respiratory distress, wheezes, rales, rhonchi, stridor Cardiovascular Exam: Present: regular rate, normal rhythm, normal heart sounds. Absent: systolic murmur, diastolic murmur, rubs, gallop, clicks GI/Abdominal exam: Present: soft, normal bowel sounds. Absent: distended, tenderness, guarding, rebound, rigid Extremities exam: Present: normal inspection, full ROM, normal capillary refill. Absent: tenderness, pedal edema, joint swelling, calf tenderness Back exam: Present: normal inspection Neurological exam: Present: alert, oriented X3, CN II-XII intact Psychiatric exam: Present: normal affect, normal mood Skin exam: Present: warm, dry, intact, normal color. Absent: rash Course Vital Signs 12/31/16 12/31/16 17:18 18:03 Temperature 97.8 F 97.8 F Pulse Rate 79 69 Respiratory 16 16 Rate Blood Pressure 134/80 117/67 O2 Sat by Pulse 95 96 Oximetry - Reevaluation(s) Reevaluation #1: 12/31/16 17:41 Recent hospitalizations or thoroughly reviewed EKG Findings - EKG Comments: EKG Findings:: EKG shows normal sinus rhythm rate of 77, OK 182, QRS 138, QTC 484 Medical Decision Making - Medical Decision Making Digitalizing idea for evaluation of having palpitations, anxiety. Patient will be discharged from the continue follow-up with primary care, patient is now within the hospital, multiple recent hospital admissions - Lab Data Result diagrams: 12/31/16 17:05 12/31/16 17:05 Lab Results 12/31/16 12/31/16 12/31/16 Range/Units 17:05 17:05 17:05 WBC 9.0 (3.8-10.6) k/uL RBC 4.74 (3.80-5.40) m/uL Hgb 14.6 (11.4-16.0) gm/dL Hct 41.9 (34.0-46.0) % MCV 88.4 (80.0-100.0) fL MCH 30.7 (25.0-35.0) pg MCHC 34.8 (31.0-37.0) g/dL RDW 12.8 (11.5-15.5) % Plt Count 256 (150-450) k/uL Neutrophils % 64 % Lymphocytes % 27 % Monocytes % 5 % Eosinophils % 2 % Basophils % 1 % Neutrophils # 5.8 (1.3-7.7) k/uL Lymphocytes # 2.4 (1.0-4.8) k/uL Monocytes # 0.4 (0-1.0) k/uL Eosinophils # 0.2 (0-0.7) k/uL Basophils # 0.1 (0-0.2) k/uL PT 10.5 (9.0-12.0) sec INR 1.0 (<1.2) APTT 25.7 (22.0-30.0) sec D-Dimer 0.31 (<0.60) mg/L FEU Sodium 141 (137-145) mmol/L Potassium 3.8 (3.5-5.1) mmol/L Chloride 104 (98-107) mmol/L Carbon Dioxide 25 (22-30) mmol/L Anion Gap 12 mmol/L BUN 10 (7-17) mg/dL Creatinine 0.90 (0.52-1.04) mg/dL Est GFR (MDRD) Af Amer >60 (>60 ml/min/1.73 sqM) Est GFR (MDRD) Non-Af >60 (>60 ml/min/1.73 sqM) Glucose 117 H (74-99) mg/dL Calcium 9.7 (8.4-10.2) mg/dL Phosphorus 3.9 (2.5-4.5) mg/dL Magnesium 2.0 (1.6-2.3) mg/dL Total Bilirubin 0.3 (0.2-1.3) mg/dL AST 27 (14-36) U/L ALT 44 (9-52) U/L Alkaline Phosphatase 93 (38-126) U/L Total Protein 7.0 (6.3-8.2) g/dL Albumin 4.2 (3.5-5.0) g/dL Urine Color Urine Appearance (Clear) Urine pH (5.0-8.0) Ur Specific [address] (1.001-1.035) Urine Protein (Negative) Urine Glucose (UA) (Negative) Urine Ketones (Negative) Urine Blood (Negative) Urine Nitrite (Negative) Urine Bilirubin (Negative) Urine Urobilinogen (<2.0) mg/dL Ur Leukocyte Esterase (Negative) 12/31/16 Range/Units 17:48 WBC (3.8-10.6) k/uL RBC (3.80-5.40) m/uL Hgb (11.4-16.0) gm/dL Hct (34.0-46.0) % MCV (80.0-100.0) fL MCH (25.0-35.0) pg MCHC (31.0-37.0) g/dL RDW (11.5-15.5) % Plt Count (150-450) k/uL Neutrophils % % Lymphocytes % % Monocytes % % Eosinophils % % Basophils % % Neutrophils # (1.3-7.7) k/uL Lymphocytes # (1.0-4.8) k/uL Monocytes # (0-1.0) k/uL Eosinophils # (0-0.7) k/uL Basophils # (0-0.2) k/uL PT (9.0-12.0) sec INR (<1.2) APTT (22.0-30.0) sec D-Dimer (<0.60) mg/L FEU Sodium (137-145) mmol/L Potassium (3.5-5.1) mmol/L Chloride (98-107) mmol/L Carbon Dioxide (22-30) mmol/L Anion Gap mmol/L BUN (7-17) mg/dL Creatinine (0.52-1.04) mg/dL Est GFR (MDRD) Af Amer (>60 ml/min/1.73 sqM) Est GFR (MDRD) Non-Af (>60 ml/min/1.73 sqM) Glucose (74-99) mg/dL Calcium (8.4-10.2) mg/dL Phosphorus (2.5-4.5) mg/dL Magnesium (1.6-2.3) mg/dL Total Bilirubin (0.2-1.3) mg/dL AST (14-36) U/L ALT (9-52) U/L Alkaline Phosphatase (38-126) U/L Total Protein (6.3-8.2) g/dL Albumin (3.5-5.0) g/dL Urine Color Colorless Urine Appearance Clear (Clear) Urine pH 6.5 (5.0-8.0) Ur Specific [address] 1.003 (1.001-1.035) Urine Protein Negative (Negative) Urine Glucose (UA) Negative (Negative) Urine Ketones Negative (Negative) Urine Blood Negative (Negative) Urine Nitrite Negative (Negative) Urine Bilirubin Negative (Negative) Urine Urobilinogen <2.0 (<2.0) mg/dL Ur Leukocyte Esterase Negative (Negative) Disposition Clinical Impression: Palpitations, Anxiety Disposition: HOME SELF-CARE Condition: Good Instructions: Palpitations (ED) Referrals: Manolo Hackett MD [Primary Care Provider] - 1-2 days
[2016-12-31 17:20] VITALS: RESP 16
[2016-12-31 17:37] LABS: Basophils # (A) 0.1 k/uL (0-0.2); Basophils % (A) 1 %; CH 29.6; CHCM 33.6; Eosinophils # (A) 0.2 k/uL (0-0.7); Eosinophils % (A) 2 %; HCT 41.9 % (34.0-46.0); HDW 2.33; HGB 14.6 gm/dL (11.4-16.0); Luc # (Auto) 0.15; Luc % (Auto) 2; Lymphocytes # (A) 2.4 k/uL (1.0-4.8); Lymphocytes % (A) 27 %; MCH 30.7 pg (25.0-35.0); MCHC 34.8 g/dL (31.0-37.0); MCV 88.4 fL (80.0-100.0); Mean Platelet Volume 7.7; Monocytes # (A) 0.4 k/uL (0-1.0); Monocytes % (A) 5 %; Neutrophils # (A) 5.8 k/uL (1.3-7.7); Neutrophils % (A) 64 %; RBC 4.74 m/uL (3.80-5.40); RDW 12.8 % (11.5-15.5); WBC (Perox) 8.29
[2016-12-31 17:50] LABS: Partial Thromboplastin Time 25.7 sec (22.0-30.0); Prothrombin Time 10.5 sec (9.0-12.0)
[2016-12-31 17:59] LABS: ALT 44 U/L (9-52); AST 27 U/L (14-36); Alkaline Phosphatase 93 U/L (38-126); Anion Gap 12 mmol/L; Blood Urea Nitrogen 10 mg/dL (7-17); Calcium 9.7 mg/dL (8.4-10.2); Carbon Dioxide 25 mmol/L (22-30); Chloride 104 mmol/L (98-107); Glucose 117 mg/dL (74-99); Non-African American GFR(MDRD) >60 (>60 ml/min/1.73 sqM); Phosphorous 3.9 mg/dL (2.5-4.5); Potassium 3.8 mmol/L (3.5-5.1); Sodium 141 mmol/L (137-145); Total Bilirubin 0.3 mg/dL (0.2-1.3)
[2016-12-31 18:06] LABS: Appearance,Urine Clear (Clear); Bilirubin,Urine Negative (Negative); Glucose,Urine (UA) Negative (Negative); Ketones,Urine Negative (Negative); Leukocyte Esterase,Urine Negative (Negative); Nitrite,Urine Negative (Negative); PH, Urine 6.5 (5.0-8.0); Protein,Urine Negative (Negative); Specific Gravity,Urine 1.003 (1.001-1.035); UA Billing (MACRO vs. MICRO) CHEM; Urobilinogen,Urine <2.0 mg/dL (<2.0)
[2016-12-31 18:14] LABS: Creatine Kinase 40 U/L (30-135)
[2016-12-31] MEDS ORDERED: DILTIAZEM 5 MG/ML 5 ML VIAL IVP STA (18:26)
[2016-12-31 18:27] LABS: Creatine Kinase MB 0.5 ng/mL (0.0-2.4); Troponin I <0.012 ng/mL (0.000-0.034)
[2016-12-31 18:31] VITALS: TEMP 97.7
[2016-12-31 18:48] VITALS: BP 128/70; PULSE 79
== END 2016-12-31 18:51 | disposition home or self-care (01) ==
LOC: EC 16:55
DX: R00.2 Palpitations (principal); F41.9 Anxiety disorder, unspecified; I10 Essential (primary) hypertension; F17.200 Nicotine dependence, unspecified, uncomplicated; Z79.899 Other long term (current) drug therapy
CPT/HCPCS: 36415; 80053; 81003; 82550; 82553; 83735; 84100; 84484; 85025; 85379; 85610; 85730; 93005; 96374; 99285

== ENCOUNTER 2017-02-01 09:20 | Observation (INO) | payer MEDICARE ==
[2017-02-01] MEDS ORDERED: ASPIRIN 81 MG PO STA (09:34)
[2017-02-01] MEDS ORDERED: NITROGLYCERIN OINT 1 INCH/GM PACKET TOPICAL STA (09:34)
--- NOTE | 2017-02-01 09:37 | ED ---
General Adult HPI - General Chief complaint: Chest Pain Stated complaint: Chest Pain Time Seen by Provider: 02/01/17 09:31 Source: patient, RN notes reviewed Mode of arrival: EMS Limitations: no limitations - History of Present Illness Initial comments: Patient is a pleasant 61-year-old female presenting to the emergency department complaining of chest discomfort. Onset was around 810 this morning while taking out the trash. Patient states only minimal exertion. Patient has had pressure with some sharpness of her lower chest. Pressure was left sternal. Patient did feel nauseated and sweaty and short of breath earlier however that has resolved. Discomfort has near resolved however sometimes patient gets minimal episodes lasting just a few seconds. Patient does have a history of similar symptoms previously associated with her heart problems. - Related Data Home Medications Medication Instructions Recorded Confirmed HYDROcodone/APAP 7.5-325MG [[place] 0.5 tab PO BID PRN 10/18/16 02/01/17 7.5-325] ALPRAZolam [Xanax] 0.5 mg PO BID PRN 01/23/17 02/01/17 Losartan-Hctz 50-12.5 mg [Hyzaar 1 tab PO DAILY 01/23/17 02/01/17 50-12.5] Previous Rx's Medication Instructions Recorded Atorvastatin [Lipitor] 20 mg PO HS #30 tab 09/13/16 LORazepam [Ativan] 1 mg PO BID PRN #30 tab 01/23/17 Allergies Allergy/AdvReac Type Severity Reaction Status Date / Time No Known Allergies Allergy Verified 02/01/17 09:42 Review of Systems ROS Statement: Those systems with pertinent positive or pertinent negative responses have been documented in the HPI. ROS Other: All systems not noted in ROS Statement are negative. Constitutional: Denies: fever Eyes: Denies: eye pain ENT: Denies: ear pain Respiratory: Reports: dyspnea. Denies: cough Cardiovascular: Reports: chest pain Endocrine: Reports: fatigue Gastrointestinal: Reports: nausea. Denies: abdominal pain, vomiting Genitourinary: Denies: dysuria Musculoskeletal: Denies: back pain Skin: Denies: rash Neurological: Denies: headache Past Medical History Past Medical History: GERD/Reflux, Hyperlipidemia, Hypertension, Osteoarthritis (OA) Additional Past Medical History / Comment(s): Low back pain, DDD, PILI SCIATIC NERVE PAIN. History of Any Multi-Drug Resistant Organisms: None Reported Past Surgical History: Joint Replacement Additional Past Surgical History / Comment(s): Total L/R hip arthroplasty, ECTOPIC PREG - LT SALPINGECTOMY. Past Anesthesia/Blood Transfusion Reactions: No Reported Reaction Past Psychological History: No Psychological Hx Reported Smoking Status: Current some day smoker - Past Family History Mother Family Medical History: Cancer Additional Family Medical History / Comment(s): Pancreatic with mets. Mother at age 68yrs. Father Family Medical History: Cancer Additional Family Medical History / Comment(s): Small cell carcinoma General Exam Limitations: no limitations General appearance: alert, in no apparent distress Head exam: Present: atraumatic Eye exam: Present: normal appearance, PERRL ENT exam: Present: normal oropharynx Neck exam: Present: normal inspection Respiratory exam: Present: normal lung sounds bilaterally. Absent: chest wall tenderness Cardiovascular Exam: Present: regular rate, normal rhythm Expanded Peripheral pulses: 2+: Dorsalis Pedis (R), Dorsalis Pedis (L) GI/Abdominal exam: Present: soft. Absent: tenderness Extremities exam: Present: normal inspection. Absent: pedal edema, calf tenderness Neurological exam: Present: alert Psychiatric exam: Present: normal affect, normal mood Skin exam: Present: normal color Course Vital Signs 02/01/17 02/01/17 02/01/17 09:26 10:34 11:42 Temperature 97.9 F Pulse Rate 70 66 72 Respiratory 21 16 16 Rate Blood Pressure 130/75 102/65 98/64 O2 Sat by Pulse 99 95 96 Oximetry EKG Findings - EKG Comments: EKG Findings:: Normal sinus rhythm 71. PA 178. QRS 92. QT 416. QTC 452. Normal axis. Normal QRS. T wave inversion in leads V1 through V4. Medical Decision Making - Medical Decision Making Patient reexamined and resting comfortably in bed. Patient updated on results and plan. Case discussed in detail with Dr. Correa, who will admit for Dr. Hackett. - Lab Data Result diagrams: 02/01/17 09:30 02/01/17 09:30 Lab Results 02/01/17 02/01/17 02/01/17 Range/Units 09:30 09:30 09:30 WBC 5.6 (3.8-10.6) k/uL RBC 4.57 (3.80-5.40) m/uL Hgb 13.6 (11.4-16.0) gm/dL Hct 41.2 (34.0-46.0) % MCV 90.0 (80.0-100.0) fL MCH 29.7 (25.0-35.0) pg MCHC 33.0 (31.0-37.0) g/dL RDW 12.8 (11.5-15.5) % Plt Count 256 (150-450) k/uL Neutrophils % 59 % Lymphocytes % 30 % Monocytes % 7 % Eosinophils % 3 % Basophils % 1 % Neutrophils # 3.3 (1.3-7.7) k/uL Lymphocytes # 1.7 (1.0-4.8) k/uL Monocytes # 0.4 (0-1.0) k/uL Eosinophils # 0.1 (0-0.7) k/uL Basophils # 0.1 (0-0.2) k/uL PT (9.0-12.0) sec INR (<1.2) APTT (22.0-30.0) sec Sodium 142 (137-145) mmol/L Potassium 3.7 (3.5-5.1) mmol/L Chloride 104 (98-107) mmol/L Carbon Dioxide 28 (22-30) mmol/L Anion Gap 10 mmol/L BUN 18 H (7-17) mg/dL Creatinine 0.92 (0.52-1.04) mg/dL Est GFR (MDRD) Af Amer >60 (>60 ml/min/1.73 sqM) Est GFR (MDRD) Non-Af >60 (>60 ml/min/1.73 sqM) Glucose 62 L (74-99) mg/dL Calcium 9.5 (8.4-10.2) mg/dL Magnesium 2.0 (1.6-2.3) mg/dL Total Bilirubin 0.3 (0.2-1.3) mg/dL AST 21 (14-36) U/L ALT 34 (9-52) U/L Alkaline Phosphatase 82 (38-126) U/L Total Creatine Kinase 59 (30-135) U/L CK-MB (CK-2) 0.8 (0.0-2.4) ng/mL CK-MB (CK-2) Rel Index 1.4 Troponin I <0.012 (0.000-0.034) ng/mL Total Protein 7.1 (6.3-8.2) g/dL Albumin 4.1 (3.5-5.0) g/dL 02/01/17 Range/Units 09:30 WBC (3.8-10.6) k/uL RBC (3.80-5.40) m/uL Hgb (11.4-16.0) gm/dL Hct (34.0-46.0) % MCV (80.0-100.0) fL MCH (25.0-35.0) pg MCHC (31.0-37.0) g/dL RDW (11.5-15.5) % Plt Count (150-450) k/uL Neutrophils % % Lymphocytes % % Monocytes % % Eosinophils % % Basophils % % Neutrophils # (1.3-7.7) k/uL Lymphocytes # (1.0-4.8) k/uL Monocytes # (0-1.0) k/uL Eosinophils # (0-0.7) k/uL Basophils # (0-0.2) k/uL PT 10.6 (9.0-12.0) sec INR 1.1 (<1.2) APTT 25.2 (22.0-30.0) sec Sodium (137-145) mmol/L Potassium (3.5-5.1) mmol/L Chloride (98-107) mmol/L Carbon Dioxide (22-30) mmol/L Anion Gap mmol/L BUN (7-17) mg/dL Creatinine (0.52-1.04) mg/dL Est GFR (MDRD) Af Amer (>60 ml/min/1.73 sqM) Est GFR (MDRD) Non-Af (>60 ml/min/1.73 sqM) Glucose (74-99) mg/dL Calcium (8.4-10.2) mg/dL Magnesium (1.6-2.3) mg/dL Total Bilirubin (0.2-1.3) mg/dL AST (14-36) U/L ALT (9-52) U/L Alkaline Phosphatase (38-126) U/L Total Creatine Kinase (30-135) U/L CK-MB (CK-2) (0.0-2.4) ng/mL CK-MB (CK-2) Rel Index Troponin I (0.000-0.034) ng/mL Total Protein (6.3-8.2) g/dL Albumin (3.5-5.0) g/dL - Radiology Data Radiology results: image reviewed (Chest x-ray shows no acute process) Critical Care Time Critical Care Time: Yes Total Critical Care Time: 31 Disposition Clinical Impression: Unstable angina Disposition: ADMITTED IP TO THIS HOSP Referrals: Manolo Hackett MD [Primary Care Provider] - 1-2 days Decision Time: 11:44
[2017-02-01 09:54] LABS: Basophils # (A) 0.1 k/uL (0-0.2); Basophils % (A) 1 %; CH 29.5; CHCM 32.9; Eosinophils # (A) 0.1 k/uL (0-0.7); Eosinophils % (A) 3 %; HCT 41.2 % (34.0-46.0); HDW 2.28; HGB 13.6 gm/dL (11.4-16.0); Luc # (Auto) 0.09; Luc % (Auto) 2; Lymphocytes # (A) 1.7 k/uL (1.0-4.8); Lymphocytes % (A) 30 %; MCH 29.7 pg (25.0-35.0); Mean Platelet Volume 7.5; Monocytes # (A) 0.4 k/uL (0-1.0); Monocytes % (A) 7 %; Neutrophils # (A) 3.3 k/uL (1.3-7.7); Neutrophils % (A) 59 %; RBC 4.57 m/uL (3.80-5.40); RDW 12.8 % (11.5-15.5); WBC 5.6 k/uL (3.8-10.6); WBC (Perox) 5.79
--- NOTE | 2017-02-01 09:55 | XR ---
EXAMINATION TYPE: XR chest 2V DATE OF EXAM: 02/01/2017 COMPARISON: Prior chest x-ray 01/23/2017 HISTORY: Chest pain TECHNIQUE: Frontal and lateral views of the chest are obtained. FINDINGS: There is no focal air space opacity, pleural effusion, or pneumothorax seen. The cardiac silhouette size is within normal limits. The osseous structures are intact. IMPRESSION: No acute cardiopulmonary process.
[2017-02-01 10:04] LABS: INR 1.1 (<1.2); Partial Thromboplastin Time 25.2 sec (22.0-30.0); Prothrombin Time 10.6 sec (9.0-12.0)
[2017-02-01 10:06] LABS: ALT 34 U/L (9-52); AST 21 U/L (14-36); Alkaline Phosphatase 82 U/L (38-126); Anion Gap 10 mmol/L; Blood Urea Nitrogen 18 mg/dL (7-17); Calcium 9.5 mg/dL (8.4-10.2); Carbon Dioxide 28 mmol/L (22-30); Chloride 104 mmol/L (98-107); Glucose 62 mg/dL (74-99); Non-African American GFR(MDRD) >60 (>60 ml/min/1.73 sqM); Potassium 3.7 mmol/L (3.5-5.1); Sodium 142 mmol/L (137-145); Total Bilirubin 0.3 mg/dL (0.2-1.3); Total Protein 7.1 g/dL (6.3-8.2)
[2017-02-01 10:15] LABS: Creatine Kinase 59 U/L (30-135)
[2017-02-01 10:28] LABS: Creatine Kinase MB 0.8 ng/mL (0.0-2.4); Troponin I <0.012 ng/mL (0.000-0.034)
[2017-02-01] MEDS ORDERED: HEPARIN SODIUM,PORCINE 5,000 UNIT/ML 1 ML VIAL IV PRN (11:44)
[2017-02-01] MEDS ORDERED: HEPARIN SODIUM,PORCINE 5,000 UNIT/ML 1 ML VIAL IV ONE (11:44)
[2017-02-01] MEDS ORDERED: NITROGLYCERIN SL TABS 0.4 MG TAB SUBLINGUAL PRN (11:44)
[2017-02-01] MEDS ORDERED: HEPARIN SODIUM,PORCINE/D5W PMX 25,000 UNIT in DEXTROSE/WATER 1 500ML.BAG IV SCH (12:00)
[2017-02-01] MEDS ORDERED: ALPRAZolam 0.5 MG TAB PO PRN (14:06)
[2017-02-01 15:56] LABS: Creatine Kinase 51 U/L (30-135)
[2017-02-01 16:09] LABS: Creatine Kinase MB 0.7 ng/mL (0.0-2.4); Troponin I <0.012 ng/mL (0.000-0.034)
--- NOTE | 2017-02-01 16:20 | P.HPIM ---
History of Present Illness Patient is a 61-year-old female admitted for chest pain, patient also complains of palpitations mostly she denied any chest pain to me. Patient the started having palpitations when she was picking up trash. Patient was evaluated here in the hospital for her palpitations patient was discharged on even monitor or Holter monitor. Results of which is still pending patient denied any shortness of breath became skeletal with nauseous and sweaty patient denied any abdominal pain fever chills. Cardiology was consulted. Review of Systems REVIEW OF SYSTEMS: CONSTITUTIONAL: No fever, no malaise, no fatigue. HEENT: No recent visual problems or hearing problems. Denied any sore throat. CARDIOVASCULAR: No chest pain, orthopnea, PND, no syncope. PULMONARY: No shortness of breath, no cough, no hemoptysis. GASTROINTESTINAL: No diarrhea, no nausea, no vomiting, no abdominal pain. Normoactive bowel sounds. NEUROLOGICAL: No headaches, no weakness, no numbness. HEMATOLOGICAL: Denies any bleeding or petechiae. GENITOURINARY: Denies any burning micturition, frequency, or urgency. MUSCULOSKELETAL/RHEUMATOLOGICAL: Denies any joint pain, swelling, or any muscle pain. ENDOCRINE: Denies any polyuria or polydipsia. The rest of the 14-point review of systems is negative. Past Medical History Past Medical History: Atrial Fibrillation, GERD/Reflux, Hyperlipidemia, Hypertension, Osteoarthritis (OA) Additional Past Medical History / Comment(s): Pt states last admission she was told she had been having Afib, Low back pain, DDD, PILI SCIATIC NERVE PAIN. History of Any Multi-Drug Resistant Organisms: None Reported Past Surgical History: Joint Replacement Additional Past Surgical History / Comment(s): Total L/R hip arthroplasty, ECTOPIC PREG - LT SALPINGECTOMY. Past Anesthesia/Blood Transfusion Reactions: No Reported Reaction Smoking Status: Former smoker - Past Family History Mother Family Medical History: Cancer Additional Family Medical History / Comment(s): Pancreatic with mets. Mother at age 68yrs. Father Family Medical History: Cancer Additional Family Medical History / Comment(s): Small cell lung carcinoma. Medications and Allergies Home Medications Medication Instructions Recorded Confirmed Type Atorvastatin [Lipitor] 20 mg PO HS #30 tab 09/13/16 02/01/17 Rx HYDROcodone/APAP 7.5-325MG [[place] 0.5 tab PO BID PRN 10/18/16 02/01/17 History 7.5-325] ALPRAZolam [Xanax] 0.5 mg PO BID PRN 01/23/17 02/01/17 History LORazepam [Ativan] 1 mg PO BID PRN #30 tab 01/23/17 02/01/17 Rx Losartan-Hctz 50-12.5 mg [Hyzaar 1 tab PO DAILY 01/23/17 02/01/17 History 50-12.5] Allergies Allergy/AdvReac Type Severity Reaction Status Date / Time No Known Allergies Allergy Verified 02/01/17 09:42 Physical Exam Vitals: Vital Signs Temp Pulse Pulse Resp BP BP Pulse Ox 02/01/17 15:43 97.8 F 60 16 106/58 95 02/01/17 12:45 70 17 02/01/17 12:30 97.4 F L 58 L 17 106/66 97 02/01/17 12:00 97.7 F 70 16 108/71 97 02/01/17 11:42 72 16 98/64 96 02/01/17 10:34 66 16 102/65 95 02/01/17 09:26 97.9 F 70 21 130/75 99 Intake and Output 02/01/17 02/01/17 02/01/17 06:59 14:59 22:59 Intake Total 118 Balance 118 Intake: Oral 118 Other: Voiding Method Toilet Weight 76.8 kg Patient Weight 02/02/17 06:59 Weight 76.8 kg PHYSICAL EXAMINATION: GENERAL: The patient is alert and oriented x3, not in any acute distress. Well developed, well nourished. HEENT: Pupils are round and equally reacting to light. EOMI. No scleral icterus. No conjunctival pallor. Normocephalic, atraumatic. No pharyngeal erythema. No thyromegaly. CARDIOVASCULAR: S1 and S2 present. No murmurs, rubs, or gallops. PULMONARY: Chest is clear to auscultation, no wheezing or crackles. ABDOMEN: Soft, nontender, nondistended, normoactive bowel sounds. No palpable organomegaly. MUSCULOSKELETAL: No joint swelling or deformity. EXTREMITIES: No cyanosis, clubbing, or pedal edema. NEUROLOGICAL: Gross neurological examination did not reveal any focal deficits. SKIN: No rashes. Results CBC & Chem 7: 02/01/17 09:30 02/01/17 09:30 Labs: Abnormal Lab Results - Last 24 Hours (Table) 02/01/17 Range/Units 09:30 BUN 18 H (7-17) mg/dL Glucose 62 L (74-99) mg/dL Thrombosis Risk Factor Assmnt - Choose All That Apply Any of the Below Risk Factors Present?: Yes Each Factor Represents 1 point: Age 41-60 years, Obesity (BMI >25) Other Risk Factors: No Other congenital or acquired thrombophilia - If yes, enter type in comment: No Thrombosis Risk Factor Assessment Total Risk Factor Score: 2 Thrombosis Risk Factor Assessment Level: Low Risk Assessment and Plan Plan: #1 palpitations: Etiology of arrhythmia is unknown although patient was recently discharged with a Holter monitor results of which are still pending consulted cardiology regarding those results. #2 anxiety disorder: Continue with her home medications. #3 COPD not in acute exacerbation patient says she quit smoking this time. #4 hyperlipidemia #5 hypertension For above-mentioned chronic medical problems patient will be continued on appropriate home medications
[2017-02-01] MEDS: NITROGLYCERIN OINT 1 INCH/GM PACKET TOPICAL SCH ×2 (16:58→17:52)
[2017-02-01] MEDS: HYDROcodone/APAP 7.5-325MG 1 EACH TAB PO PRN (17:02)
[2017-02-01] MEDS: LORazepam 1 MG TAB PO PRN (19:51)
[2017-02-01] MEDS ORDERED: ATORVASTATIN 20 MG TAB PO SCH (21:00)
[2017-02-01 22:30] LABS: Creatine Kinase 47 U/L (30-135)
[2017-02-01 22:40] LABS: Creatine Kinase MB 0.8 ng/mL (0.0-2.4); Troponin I <0.012 ng/mL (0.000-0.034)
[2017-02-02] MEDS: NITROGLYCERIN OINT 1 INCH/GM PACKET TOPICAL SCH ×2 (00:19→05:21)
[2017-02-02] MEDS: HYDROcodone/APAP 7.5-325MG 1 EACH TAB PO PRN (03:39)
[2017-02-02 06:54] LABS: Mean Platelet Volume 7.6
[2017-02-02 07:24] LABS: Cholesterol 110 mg/dL (<200); HDL Cholesterol 55 mg/dL (40-60)
[2017-02-02] MEDS ORDERED: ASPIRIN 325 MG TAB PO SCH (09:00)
[2017-02-02] MEDS: LORazepam 1 MG TAB PO PRN (09:11)
--- NOTE | 2017-02-02 10:12 | ECHOF ---
Referral Reason:CP MEASUREMENTS -------- HEIGHT: 162.6 cm WEIGHT: 76.7 kg BP: IVSd: 0.9 cm (0.6 - 1.1) LVIDd: 4.1 cm (3.9 - 5.3) LVPWd: 1.1 cm (0.6 - 1.1) IVSs: 1.6 cm LVIDs: 3.0 cm LVPWs: 1.4 cm Ao Diam: 3.1 cm (2.0 - 3.7) AV Cusp: 1.6 cm (1.5 - 2.6) LA Diam: 2.9 cm (2.7 - 3.8) MV EXCURSION: 13.883 mm (> 18.000) MV EF SLOPE: 51 mm/s (70 - 150) EPSS: 0.6 cm MV E [place]: 0.84 m/s MV DecT: 200 ms MV A [place]: 0.84 m/s MV E/A Ratio: 1.00 RAP: 5.00 mmHg RVSP: 26.36 mmHg FINDINGS -------- Sinus rhythm with extra systolic beats. This was a technically good study. The left ventricular size is normal. Left ventricular wall thickness is normal. Overall left ventricular systolic function is low-normal with, an EF between 50 - 55 %. The right ventricle is normal in size and function. The left atrium is normal in size. The right atrium is normal in size. The aortic valve is trileaflet, and appears structurally normal. No aortic stenosis or regurgitation. The mitral valve leaflets are mildly thickened. Mild mitral regurgitation is present. Trace tricuspid regurgitation present. The right ventricular systolic pressure, as measured by Doppler, is 26.36mmHg. Pulmonic valve appears structurally normal. The aortic root size is normal. Normal inferior vena cava with normal inspiratory collapse consistent with estimated right atrial pressure of 5 mmHg. There is a trivial pericardial effusion present. CONCLUSIONS -------- 1. Sinus rhythm with extra systolic beats. 2. The mitral valve leaflets are mildly thickened. 3. Mild mitral regurgitation is present. 4. Trace tricuspid regurgitation present. 5. The right ventricular systolic pressure, as measured by Doppler, is 26.36mmHg. 6. Pulmonic valve appears structurally normal. 7. The aortic root size is normal. 8. Normal inferior vena cava with normal inspiratory collapse consistent with estimated right atrial pressure of 5 mmHg. 9. There is a trivial pericardial effusion present. 10. This was a technically good study. 11. The left ventricular size is normal. 12. Left ventricular wall thickness is normal. 13. Overall left ventricular systolic function is low-normal with, an EF between 50 - 55 %. 14. The right ventricle is normal in size and function. 15. The left atrium is normal in size. 16. The right atrium is normal in size. 17. The aortic valve is trileaflet, and appears structurally normal. No aortic stenosis or regurgitation. ENVIRONMENTAL COMMUNICATIONS SPECIALIST: Nicol Browne RDCS
--- NOTE | 2017-02-02 10:21 | P.CRDCN ---
History of Present Illness Consult date: 02/01/17 History of present illness: This is a 61-year-old female patient with Dr. Granados. Past medical history significant for essential hypertension, hyperlipidemia and chronic tobacco abuse. Patient states she quit smoking tobacco 5 days ago. Prior to that she was smoking one pack per day. Patient presents with complaints of palpitations and chest heaviness. She states earlier morning she was walking out to take out her garbage which is approximately [address] She states she started feeling this chest heaviness associated with her heart racing. She also felt mildly nauseous and short of breath. All of her symptoms had resolved prior to arrival to the ED. EKG on arrival is sinus mechanism with T-wave inversion noted in V2-V4. This appears consistent with previous EKG's. Telemetry tracings indicate she has episodes of rate dependent left bundle branch block at approximately 70 bpm. When this occurs she does not have complaints of chest pain, shortness of breath or palpitations. She most recently underwent 30-day event monitor and had to cancel her follow up appt. She is rescheduled for 02/[address] Granados. Such reports have been reviewed and reveal no abnormalities. Pt states she was told she has atrial fibrillation, this finding cannot be corroborated on any documented EKG or telemetry tracings. Cardiac enzymes are negative x1. Hemoglobin 13.6, potassium 3.7, magnesium 2.0. Blood pressure 106/66 with heart rate 58. In November Toprol was discontinued due to bradycardia in the 40-50 range. Current medications include : Losartan/HCTZ 50/12.5 daily, ativan, norco, xanax and lipitor 20 mg daily. Most recent echo was performed 09/02/2016 and revealed preserved LV function iwth EF 55-60% with mild aortic valve sclerosis, mimld MR, mild TR and no evidence of pulmonary hypertension with RVSP 25.35 mmHg. Review of Systems REVIEW OF SYSTEMS: CONSTITUTIONAL: No fever, no malaise, no fatigue. HEENT: No recent visual problems or hearing problems. Denied any sore throat. CARDIOVASCULAR: No chest pain, orthopnea, PND, no syncope at the time of my exam. PULMONARY: No shortness of breath, no cough, no hemoptysis. GASTROINTESTINAL: No diarrhea, no nausea, no vomiting, no abdominal pain. Normoactive bowel sounds. NEUROLOGICAL: No headaches, no weakness, no numbness. HEMATOLOGICAL: Denies any bleeding or petechiae. GENITOURINARY: Denies any burning micturition, frequency, or urgency. MUSCULOSKELETAL/RHEUMATOLOGICAL: Denies any joint pain, swelling, or any muscle pain. ENDOCRINE: Denies any polyuria or polydipsia. Past Medical History Past Medical History: Atrial Fibrillation, GERD/Reflux, Hyperlipidemia, Hypertension, Osteoarthritis (OA) Additional Past Medical History / Comment(s): Pt states last admission she was told she had been having Afib, Low back pain, DDD, PILI SCIATIC NERVE PAIN. History of Any Multi-Drug Resistant Organisms: None Reported Past Surgical History: Joint Replacement Additional Past Surgical History / Comment(s): Total L/R hip arthroplasty, ECTOPIC PREG - LT SALPINGECTOMY. Past Anesthesia/Blood Transfusion Reactions: No Reported Reaction Smoking Status: Former smoker - Past Family History Mother Family Medical History: Cancer Additional Family Medical History / Comment(s): Pancreatic with mets. Mother at age 68yrs. Father Family Medical History: Cancer Additional Family Medical History / Comment(s): Small cell lung carcinoma. Medications and Allergies Home Medications Medication Instructions Recorded Confirmed Type Atorvastatin [Lipitor] 20 mg PO HS #30 tab 09/13/16 02/01/17 Rx HYDROcodone/APAP 7.5-325MG [[place] 0.5 tab PO BID PRN 10/18/16 02/01/17 History 7.5-325] ALPRAZolam [Xanax] 0.5 mg PO BID PRN 01/23/17 02/01/17 History LORazepam [Ativan] 1 mg PO BID PRN #30 tab 01/23/17 02/01/17 Rx Losartan-Hctz 50-12.5 mg [Hyzaar 1 tab PO DAILY 01/23/17 02/01/17 History 50-12.5] Allergies Allergy/AdvReac Type Severity Reaction Status Date / Time No Known Allergies Allergy Verified 02/01/17 09:42 Physical Exam Vitals: Vital Signs Temp Pulse Pulse Resp BP BP Pulse Ox 02/02/17 08:00 97.7 F 69 16 121/73 94 L 02/02/17 04:00 97.7 F 51 L 16 115/59 92 L 02/02/17 03:15 72 16 02/01/17 23:58 98.0 F 59 L 16 107/57 95 02/01/17 23:27 53 L 16 02/01/17 20:00 67 16 02/01/17 19:43 98.1 F 65 16 117/77 96 02/01/17 16:00 60 16 02/01/17 15:43 97.8 F 60 16 106/58 95 02/01/17 12:45 70 17 02/01/17 12:30 97.4 F L 58 L 17 106/66 97 02/01/17 12:00 97.7 F 70 16 108/71 97 02/01/17 11:42 72 16 98/64 96 02/01/17 10:34 66 16 102/65 95 Intake and Output 02/01/17 02/02/17 02/02/17 22:59 06:59 14:59 Other: Voiding Method Toilet Toilet Toilet # Voids 2 2 GENERAL: Well-appearing, well-nourished and in no acute distress. Appears older than stated age. NECK: Supple without JVD or thyromegaly. LUNGS: Breath sounds clear to auscultation bilaterally. Respiration equal and unlabored. No wheezes, rales or rhonchi. HEART: Regular rate and rhythm without murmurs, rubs or gallops. S1 and S2 heard. EXTREMITIES: Normal range of motion, no edema. No clubbing or cyanosis. Peripheral pulses intact and strong. Results 02/02/17 06:24 02/01/17 09:30 Cardiac Enzymes 02/01/17 02/01/17 02/01/17 Range/Units 09:30 09:30 15:22 AST 21 (14-36) U/L CK-MB (CK-2) 0.8 0.7 (0.0-2.4) ng/mL Troponin I <0.012 <0.012 (0.000-0.034) ng/mL 02/01/17 Range/Units 21:27 AST (14-36) U/L CK-MB (CK-2) 0.8 (0.0-2.4) ng/mL Troponin I <0.012 (0.000-0.034) ng/mL Coagulation 02/01/17 02/01/17 Range/Units 09:30 18:00 PT 10.6 (9.0-12.0) sec APTT 25.2 70.9 H (22.0-30.0) sec Lipids 02/02/17 Range/Units 06:24 Triglycerides 72 (<150) mg/dL Cholesterol 110 (<200) mg/dL HDL Cholesterol 55 (40-60) mg/dL CBC 02/01/17 02/02/17 Range/Units 09:30 06:24 WBC 5.6 (3.8-10.6) k/uL RBC 4.57 (3.80-5.40) m/uL Hgb 13.6 (11.4-16.0) gm/dL Hct 41.2 (34.0-46.0) % Plt Count 256 245 (150-450) k/uL Comprehensive Metabolic Panel 02/01/17 Range/Units 09:30 Sodium 142 (137-145) mmol/L Potassium 3.7 (3.5-5.1) mmol/L Chloride 104 (98-107) mmol/L Carbon Dioxide 28 (22-30) mmol/L BUN 18 H (7-17) mg/dL Creatinine 0.92 (0.52-1.04) mg/dL Glucose 62 L (74-99) mg/dL Calcium 9.5 (8.4-10.2) mg/dL AST 21 (14-36) U/L ALT 34 (9-52) U/L Alkaline Phosphatase 82 (38-126) U/L Total Protein 7.1 (6.3-8.2) g/dL Albumin 4.1 (3.5-5.0) g/dL Current Medications Generic Name Dose Route Start Last Admin Trade Name Freq PRN Reason Stop Dose Admin Hydrocodone Bitart/Acetaminophen 0.5 each 02/01/17 14:06 02/02/17 03:39 [place] 7.5-325 PO 0.5 each BID PRN Administration Pain Alprazolam 0.5 mg 02/01/17 14:06 Xanax PO BID PRN Anxiety Aspirin 325 mg 02/02/17 09:00 02/02/17 09:11 Aspirin PO 325 mg DAILY DORIS Administration Atorvastatin Calcium 20 mg 02/01/17 21:00 02/01/17 19:51 Lipitor PO 20 mg HS DORIS Administration Lorazepam 1 mg 02/01/17 14:06 02/02/17 09:11 Ativan PO 1 mg BID PRN Administration Anxiety Nitroglycerin 0.4 mg 02/01/17 11:44 Nitrostat SUBLINGUAL Q5M PRN Chest Pain Sodium Chloride 10 ml 02/01/17 21:00 02/02/17 09:11 Saline Flush IV Not Given BID DORIS Intake and Output 02/01/17 02/02/17 02/02/17 22:59 06:59 14:59 Other: Voiding Method Toilet Toilet Toilet # Voids 2 2 02/02/17 06:24 02/01/17 09:30 Assessment and Plan Plan: ASSESSMENT 1. Chest pain, atypical 2. Essential hypertension, controlled with losartan/hctz 3. Dyslipidemia, controlled on lipitor daily 4. Palpitations 5. Anxiety 6. Chronic tobacco abuse PLAN Obtain serial EKG's with cardiac enzymes to rule out acute coronary event. We will continue to follow telemetry tracings closely. Further recommendations based on clinical course. Nurse Practitioner note has been reviewed, I agree with a documented findings and plan of care. Patient was seen and examined.
--- NOTE | 2017-02-02 12:24 | P.PN ---
Subjective This is a 61-year-old female patient with Dr. Granados. Past medical history significant for essential hypertension, hyperlipidemia and chronic tobacco abuse. Patient states she quit smoking tobacco 5 days ago. Prior to that she was smoking one pack per day. Patient presents with complaints of palpitations and chest heaviness. Yesterday morning she was walking out to take out her garbage which is approximately [address] She states she started feeling this chest heaviness associated with her heart racing. She also felt mildly nauseous and short of breath. All of her symptoms had resolved prior to arrival to the ED. EKG on arrival is sinus mechanism with T-wave inversion noted in V2-V4. This appears consistent with previous EKG's. Telemetry tracings indicate she has episodes of rate dependent left bundle branch block at approximately 70 bpm. When this occurs she does not have complaints of chest pain, shortness of breath or palpitations. She most recently underwent 30-day event monitor and had to cancel her follow up appt. She is rescheduled for 02/[address] Granados. Such reports have been reviewed and reveal no abnormalities. Pt states she was told she has atrial fibrillation, this finding cannot be corroborated on any documented EKG or telemetry tracings. Cardiac enzymes are negative x3. Hemoglobin 13.6, potassium 3.7, magnesium 2.0. Blood pressure 121/73 with heart rate 69. In November Toprol was discontinued due to bradycardia in the 40-50 range. Current medications include : Losartan/HCTZ 50/12.5 daily, ativan, norco, xanax and lipitor 20 mg daily. Most recent echo was performed 09/02/2016 and revealed preserved LV function iwth EF 55-60% with mild aortic valve sclerosis, mimld MR, mild TR and no evidence of pulmonary hypertension with RVSP 25.35 mmHg. She has had no further episodes of chest pain, shortness of breath, dizziness or palpitations overnight. Objective - Vital Signs Vital signs: Vital Signs Temp 97.7 F 02/02/17 08:00 Pulse 69 02/02/17 08:00 Resp 16 02/02/17 08:00 BP 121/73 02/02/17 08:00 Pulse Ox 94 L 02/02/17 08:00 Intake & Output 02/01/17 02/02/17 02/02/17 18:59 06:59 18:59 Intake Total 118 450 Balance 118 450 Weight 76.8 kg Intake: Oral 118 450 Other: Voiding Method Toilet Toilet Toilet # Voids 2 - Exam GENERAL: Well-appearing, well-nourished and in no acute distress. NECK: Supple without JVD or thyromegaly. LUNGS: Breath sounds clear to auscultation bilaterally. Respiration equal and unlabored. No wheezes, rales or rhonchi. HEART: Regular rate and rhythm without murmurs, rubs or gallops. S1 and S2 heard. EXTREMITIES: Normal range of motion, no edema. No clubbing or cyanosis. Peripheral pulses intact and strong. - Labs CBC & Chem 7: 02/02/17 06:24 02/01/17 09:30 Labs: Abnormal Lab Results - Last 24 Hours (Table) 02/01/17 Range/Units 18:00 APTT 70.9 H (22.0-30.0) sec Assessment and Plan Plan: ASSESSMENT 1. Chest pain, atypical 2. Essential hypertension, controlled with losartan/hctz 3. Dyslipidemia, controlled on lipitor daily 4. Palpitations 5. Anxiety 6. Chronic tobacco abuse PLAN Repeat 2D echocardiogram and doppler study. Event monitor report has been reviewed. She can follow up with Dr. Granados at her already scheduled appt and he can discuss and decide upon repeating her stress test as an outpatient. Smoking cessation has been discussed. Continue medications as previously ordered. Nurse Practitioner note has been reviewed, I agree with a documented findings and plan of care. Patient was seen and examined.
[2017-02-02 12:45] VITALS: BP 106/63; PULSE 73; RESP 18; TEMP 98.7
--- NOTE | 2017-02-02 16:42 | P.DS ---
Providers Date of admission: 02/01/17 11:45 Attending physician: Emily Correa Consults: 02/01/17 11:45 Consult Physician Urgent Consulting Provider: Rajeev Hodgson Consult Reason/Comments: ua Do you want consulting provider notified?: Yes Primary care physician: Lew French [facility] Course: patient was admitted for palpitations although no evidence of any cardiac arrhythmia on the Holter monitor and the patient was evaluated by cardiology and they recommended follow with Dr. Granados as an outpatient. And patient will be discharged today. Patient blood pressures in the low normal side because of which have we're holding her antidepressant medication and patient will be discharged today. Plan - Discharge Summary New Discharge Prescriptions: Discontinued Losartan-Hctz 50-12.5 mg [Hyzaar 50-12.5] 1 tab PO DAILY No Action Atorvastatin [Lipitor] 20 mg PO HS #30 tab HYDROcodone/APAP 7.5-325MG [[place] 7.5-325] 0.5 tab PO BID PRN PRN Reason: Pain ALPRAZolam [Xanax] 0.5 mg PO BID PRN PRN Reason: Anxiety LORazepam [Ativan] 1 mg PO BID PRN #30 tab PRN Reason: Anxiety Discharge Medication List Atorvastatin [Lipitor] 20 mg PO HS #30 tab 09/13/16 [Rx] HYDROcodone/APAP 7.5-325MG [[place] 7.5-325] 0.5 tab PO BID PRN 10/18/16 [History] ALPRAZolam [Xanax] 0.5 mg PO BID PRN 01/23/17 [History] LORazepam [Ativan] 1 mg PO BID PRN #30 tab 01/23/17 [Rx] Follow up Appointment(s)/Referral(s): Manolo Hackett MD [Primary Care Provider] - 3 Days Rhett Granados MD [STAFF PHYSICIAN] - 03/03/17 3:45 pm Patient Instructions/Handouts: Chest Pain (DC) Discharge Disposition: HOME SELF-CARE
== END 2017-02-02 15:28 | disposition home or self-care (01) ==
LOC: EC 09:20 → 3OBS 11:45
PROVIDERS: ADMIT Hospitalist; ATTEND Hospitalist
DX: R07.89 Other chest pain (principal); I10 Essential (primary) hypertension; R00.2 Palpitations; F41.9 Anxiety disorder, unspecified; E78.5 Hyperlipidemia, unspecified; F17.200 Nicotine dependence, unspecified, uncomplicated; E66.9 Obesity, unspecified; Z68.29 Body mass index [BMI] 29.0-29.9, adult; J44.9 Chronic obstructive pulmonary disease, unspecified; R11.0 Nausea; R61 Generalized hyperhidrosis; R06.02 Shortness of breath; Z79.899 Other long term (current) drug therapy; Z80.8 Family history of malignant neoplasm of other organs or systems; Z80.1 Family history of malignant neoplasm of trachea, bronchus and lung
CPT/HCPCS: 99291; 96376 ×2; 96365; 96366 ×2; 36415; 93005; 93306; 80061; 80053; 82550; 82553; 83735; 84484; 85025; 85049; 85610; 85730; 71020; G0378 ×2; J1644 ×2

== ENCOUNTER 2017-02-13 22:20 | Emergency (ER) | payer MEDICARE ==
[2017-02-13 22:25] VITALS: RESP 18
--- NOTE | 2017-02-13 22:52 | ED ---
General Adult HPI - General Chief complaint: Arrhythmia/Palpitations Stated complaint: heart palps Time Seen by Provider: 02/13/17 22:25 Source: patient, RN notes reviewed Mode of arrival: ambulatory Limitations: no limitations - History of Present Illness Initial comments: This is a 61-year-old female who presents emergency Department stating she had palpitations. Patient states she feels a squeezing occasionally in her chest. Patient states she's not short of breath or having any difficulty breathing. Patient states she's had episodes of this and been worked up for at least 5 times in the emergency department and they have never found anything. Patient states Dr. Styles the grinder machine knife setter has told her that she has no problem with her heart. Patient denies any recent fever chills or cough. Patient denies any abdominal pain patient denies any nausea vomiting. Patient denies any lightheadedness or dizziness. Patient denies any diaphoresis. Patient denies any headache patient denies numbness weakness. - Related Data Home Medications Medication Instructions Recorded Confirmed HYDROcodone/APAP 7.5-325MG [[place] 0.5 tab PO DAILY PRN 10/18/16 02/13/17 7.5-325] LORazepam [Ativan] 0.5 mg PO BID PRN 02/13/17 02/13/17 Losartan-Hctz 50-12.5 mg [Hyzaar 1 tab PO DAILY 02/13/17 02/13/17 50-12.5] Previous Rx's Medication Instructions Recorded Atorvastatin [Lipitor] 20 mg PO HS #30 tab 09/13/16 Allergies Allergy/AdvReac Type Severity Reaction Status Date / Time No Known Allergies Allergy Verified 02/13/17 22:46 Review of Systems ROS Statement: Those systems with pertinent positive or pertinent negative responses have been documented in the HPI. ROS Other: All systems not noted in ROS Statement are negative. Past Medical History Past Medical History: Atrial Fibrillation, GERD/Reflux, Hyperlipidemia, Hypertension, Osteoarthritis (OA) Additional Past Medical History / Comment(s): Pt states last admission she was told she had been having Afib, Low back pain, DDD, PILI SCIATIC NERVE PAIN. History of Any Multi-Drug Resistant Organisms: None Reported Past Surgical History: Joint Replacement Additional Past Surgical History / Comment(s): Total L/R hip arthroplasty, ECTOPIC PREG - LT SALPINGECTOMY. Past Anesthesia/Blood Transfusion Reactions: No Reported Reaction Past Psychological History: Anxiety Smoking Status: Former smoker Past Alcohol Use History: None Reported Past Drug Use History: None Reported - Past Family History Mother Family Medical History: Cancer Additional Family Medical History / Comment(s): Pancreatic with mets. Mother at age 68yrs. Father Family Medical History: Cancer Additional Family Medical History / Comment(s): Small cell lung carcinoma. General Exam - General Exam Comments Initial Comments: GENERAL: Patient is well-developed and well-nourished. Patient is nontoxic and well- hydrated and is in no acute distress. ENT: Neck is soft and supple. No significant lymphadenopathy is noted. Oropharynx is clear. Moist mucous membranes. Neck has full range of motion without eliciting any pain. EYES: The sclera were anicteric and conjunctiva were pink and moist. Extraocular movements were intact and pupils were equal round and reactive to light. Eyelids were unremarkable. PULMONARY: Unlabored respirations. Good breath sounds bilaterally. No audible rales rhonchi or wheezing was noted. CARDIOVASCULAR: There is a regular rate and rhythm without any murmurs gallops or rubs. Patient has an occasional extrasystole ABDOMEN: Soft and nontender with normal bowel sounds. No palpable organomegaly was noted. There is no palpable pulsatile mass. SKIN: Skin is clear with no lesions or rashes and otherwise unremarkable. NEUROLOGIC: Patient is alert and oriented x3. Cranial nerves II through XII are grossly intact. Motor and sensory are also intact. Normal speech, volume and content. Symmetrical smile. MUSCULOSKELETAL: Normal extremities with adequate strength and full range of motion. LYMPHATICS: No significant lymphadenopathy is noted PSYCHIATRIC: Normal psychiatric evaluation. Normal interpersonal interactions appears functionally intact in deals appropriately with others. No signs of depression. No signs of anxiety. Limitations: no limitations Course Vital Signs 02/13/17 02/13/17 02/13/17 22:22 23:02 23:23 Temperature 98.1 F 97.6 F Pulse Rate 82 65 70 Respiratory 18 18 18 Rate Blood Pressure 140/97 108/59 102/64 O2 Sat by Pulse 99 93 L 97 Oximetry Medical Decision Making - Medical Decision Making EKG shows sinus rhythm with an occasional PVC at 72 bpm ND interval 260 QRS is 92 QT interval 400 QTC is 438. Patient's EKG is compared to an old EKG there are no acute changes noted - Lab Data Result diagrams: 02/13/17 22:40 02/13/17 22:40 Lab Results 02/13/17 02/13/17 02/13/17 Range/Units 22:40 22:40 22:40 WBC 9.4 (3.8-10.6) k/uL RBC 4.74 (3.80-5.40) m/uL Hgb 14.2 (11.4-16.0) gm/dL Hct 43.9 (34.0-46.0) % MCV 92.5 (80.0-100.0) fL MCH 30.0 (25.0-35.0) pg MCHC 32.4 (31.0-37.0) g/dL RDW 14.3 (11.5-15.5) % Plt Count 267 (150-450) k/uL Neutrophils % 58 % Lymphocytes % 31 % Monocytes % 5 % Eosinophils % 4 % Basophils % 1 % Neutrophils # 5.5 (1.3-7.7) k/uL Lymphocytes # 2.9 (1.0-4.8) k/uL Monocytes # 0.5 (0-1.0) k/uL Eosinophils # 0.4 (0-0.7) k/uL Basophils # 0.1 (0-0.2) k/uL PT (9.0-12.0) sec INR (<1.2) APTT (22.0-30.0) sec Sodium 139 (137-145) mmol/L Potassium 3.8 (3.5-5.1) mmol/L Chloride 102 (98-107) mmol/L Carbon Dioxide 26 (22-30) mmol/L Anion Gap 11 mmol/L BUN 16 (7-17) mg/dL Creatinine 0.93 (0.52-1.04) mg/dL Est GFR (MDRD) Af Amer >60 (>60 ml/min/1.73 sqM) Est GFR (MDRD) Non-Af >60 (>60 ml/min/1.73 sqM) Glucose 81 (74-99) mg/dL Calcium 9.7 (8.4-10.2) mg/dL Magnesium 2.0 (1.6-2.3) mg/dL Total Bilirubin 0.2 (0.2-1.3) mg/dL AST 29 (14-36) U/L ALT 38 (9-52) U/L Alkaline Phosphatase 112 (38-126) U/L Total Creatine Kinase 52 (30-135) U/L CK-MB (CK-2) 0.7 (0.0-2.4) ng/mL CK-MB (CK-2) Rel Index 1.3 Troponin I <0.012 (0.000-0.034) ng/mL Total Protein 7.4 (6.3-8.2) g/dL Albumin 4.3 (3.5-5.0) g/dL 02/13/17 Range/Units 22:40 WBC (3.8-10.6) k/uL RBC (3.80-5.40) m/uL Hgb (11.4-16.0) gm/dL Hct (34.0-46.0) % MCV (80.0-100.0) fL MCH (25.0-35.0) pg MCHC (31.0-37.0) g/dL RDW (11.5-15.5) % Plt Count (150-450) k/uL Neutrophils % % Lymphocytes % % Monocytes % % Eosinophils % % Basophils % % Neutrophils # (1.3-7.7) k/uL Lymphocytes # (1.0-4.8) k/uL Monocytes # (0-1.0) k/uL Eosinophils # (0-0.7) k/uL Basophils # (0-0.2) k/uL PT 10.3 (9.0-12.0) sec INR 1.0 (<1.2) APTT 25.7 (22.0-30.0) sec Sodium (137-145) mmol/L Potassium (3.5-5.1) mmol/L Chloride (98-107) mmol/L Carbon Dioxide (22-30) mmol/L Anion Gap mmol/L BUN (7-17) mg/dL Creatinine (0.52-1.04) mg/dL Est GFR (MDRD) Af Amer (>60 ml/min/1.73 sqM) Est GFR (MDRD) Non-Af (>60 ml/min/1.73 sqM) Glucose (74-99) mg/dL Calcium (8.4-10.2) mg/dL Magnesium (1.6-2.3) mg/dL Total Bilirubin (0.2-1.3) mg/dL AST (14-36) U/L ALT (9-52) U/L Alkaline Phosphatase (38-126) U/L Total Creatine Kinase (30-135) U/L CK-MB (CK-2) (0.0-2.4) ng/mL CK-MB (CK-2) Rel Index Troponin I (0.000-0.034) ng/mL Total Protein (6.3-8.2) g/dL Albumin (3.5-5.0) g/dL Disposition Clinical Impression: Palpitations Disposition: HOME SELF-CARE Condition: Good Instructions: Palpitations (ED) Referrals: Manolo Hackett MD [Primary Care Provider] - 1-2 days Time of Disposition: 00:22
[2017-02-13 22:59] LABS: Basophils # (A) 0.1 k/uL (0-0.2); Basophils % (A) 1 %; CH 31.1; CHCM 33.8; Eosinophils # (A) 0.4 k/uL (0-0.7); Eosinophils % (A) 4 %; HCT 43.9 % (34.0-46.0); HDW 2.31; HGB 14.2 gm/dL (11.4-16.0); Luc # (Auto) 0.11; Luc % (Auto) 1; Lymphocytes # (A) 2.9 k/uL (1.0-4.8); Lymphocytes % (A) 31 %; MCHC 32.4 g/dL (31.0-37.0); MCV 92.5 fL (80.0-100.0); Mean Platelet Volume 7.7; Monocytes # (A) 0.5 k/uL (0-1.0); Monocytes % (A) 5 %; Neutrophils # (A) 5.5 k/uL (1.3-7.7); Neutrophils % (A) 58 %; RBC 4.74 m/uL (3.80-5.40); RDW 14.3 % (11.5-15.5); WBC 9.4 k/uL (3.8-10.6); WBC (Perox) 9.93
--- NOTE | 2017-02-13 23:01 | XR ---
EXAMINATION TYPE: XR chest 2V DATE OF EXAM: 02/13/2017 COMPARISON: 02/01/2017 HISTORY: Dysrhythmia TECHNIQUE: Frontal and lateral views of the chest are obtained. FINDINGS: There is no heart failure nor confluent pneumonic infiltrate. Costophrenic angles are nick r. Bony thorax is intact. Heart size is normal. There are chest leads. IMPRESSION: No active cardiopulmonary disease. No change.
[2017-02-13 23:07] LABS: Partial Thromboplastin Time 25.7 sec (22.0-30.0); Prothrombin Time 10.3 sec (9.0-12.0)
[2017-02-13 23:22] LABS: ALT 38 U/L (9-52); AST 29 U/L (14-36); Alkaline Phosphatase 112 U/L (38-126); Anion Gap 11 mmol/L; Blood Urea Nitrogen 16 mg/dL (7-17); Calcium 9.7 mg/dL (8.4-10.2); Carbon Dioxide 26 mmol/L (22-30); Chloride 102 mmol/L (98-107); Glucose 81 mg/dL (74-99); Non-African American GFR(MDRD) >60 (>60 ml/min/1.73 sqM); Potassium 3.8 mmol/L (3.5-5.1); Sodium 139 mmol/L (137-145); Total Bilirubin 0.2 mg/dL (0.2-1.3); Total Protein 7.4 g/dL (6.3-8.2)
[2017-02-13 23:29] LABS: Creatine Kinase 52 U/L (30-135)
[2017-02-13 23:43] LABS: Creatine Kinase MB 0.7 ng/mL (0.0-2.4); Troponin I <0.012 ng/mL (0.000-0.034)
[2017-02-14 00:41] VITALS: BP 102/62; PULSE 54; TEMP 98
== END 2017-02-14 00:41 | disposition home or self-care (01) ==
LOC: EC 22:20
DX: I49.3 Ventricular premature depolarization (principal); I10 Essential (primary) hypertension; Z87.891 Personal history of nicotine dependence; Z79.899 Other long term (current) drug therapy
CPT/HCPCS: 36415; 71020; 80053; 82550; 82553; 83735; 84484; 85025; 85610; 85730; 93005; 99285

== ENCOUNTER 2017-03-16 12:01 | Emergency (ER) | payer MEDICARE ==
[2017-03-16] MEDS ORDERED: NITROGLYCERIN OINT 1 INCH/GM PACKET TOPICAL STA (12:46)
[2017-03-16] MEDS ORDERED: ASPIRIN 81 MG PO STA (12:46)
--- NOTE | 2017-03-16 12:58 | ED ---
General Adult HPI - General Chief complaint: Chest Pain Stated complaint: CHEST PAIN, PALPATATIONS Time Seen by Provider: 03/16/17 12:20 Source: patient, RN notes reviewed Mode of arrival: ambulatory Limitations: no limitations - History of Present Illness Initial comments: This is a 61-year-old female with a past medical history significant for palpitations. Patient comes in today because this morning she had an episode of palpitations but it subsided after she went to the bathroom. Patient states though shortly thereafter she started having severe palpitations chest pain shortness of breath and became very diaphoretic and flushed. Patient states she felt very weak at that point as well. Patient states the symptoms lasted until she arrived in the hospital. Patient states currently the palpitations come and go. Patient denies any chest pain currently or any difficulty breathing currently. Patient denies any leg swelling or calf tenderness. Patient denies abdominal pain. Patient denies any nausea vomiting diarrhea. Patient denies any injury or trauma recently. Patient denies any recent fever chills or cough. - Related Data Home Medications Medication Instructions Recorded Confirmed HYDROcodone/APAP 7.5-325MG [[place] 0.5 tab PO DAILY PRN 10/18/16 03/16/17 7.5-325] LORazepam [Ativan] 0.5 mg PO BID PRN 02/13/17 03/16/17 amLODIPine [Norvasc] 2.5 mg PO DAILY 03/16/17 03/16/17 Previous Rx's Medication Instructions Recorded Atorvastatin [Lipitor] 20 mg PO HS #30 tab 09/13/16 Allergies Allergy/AdvReac Type Severity Reaction Status Date / Time No Known Allergies Allergy Verified 03/16/17 14:09 Review of Systems ROS Statement: Those systems with pertinent positive or pertinent negative responses have been documented in the HPI. ROS Other: All systems not noted in ROS Statement are negative. Past Medical History Past Medical History: Atrial Fibrillation, GERD/Reflux, Hyperlipidemia, Hypertension, Osteoarthritis (OA) Additional Past Medical History / Comment(s): Pt states last admission she was told she had been having Afib, Low back pain, DDD, PILI SCIATIC NERVE PAIN. History of Any Multi-Drug Resistant Organisms: None Reported Past Surgical History: Joint Replacement Additional Past Surgical History / Comment(s): Total L/R hip arthroplasty, ECTOPIC PREG - LT SALPINGECTOMY. Past Anesthesia/Blood Transfusion Reactions: No Reported Reaction Past Psychological History: Anxiety Smoking Status: Former smoker Past Alcohol Use History: None Reported Past Drug Use History: None Reported - Past Family History Mother Family Medical History: Cancer Additional Family Medical History / Comment(s): Pancreatic with mets. Mother at age 68yrs. Father Family Medical History: Cancer Additional Family Medical History / Comment(s): Small cell lung carcinoma. General Exam - General Exam Comments Initial Comments: GENERAL: Patient is well-developed and well-nourished. Patient is nontoxic and well- hydrated and is in mild distress. ENT: Neck is soft and supple. No significant lymphadenopathy is noted. Oropharynx is clear. Moist mucous membranes. Neck has full range of motion without eliciting any pain. EYES: The sclera were anicteric and conjunctiva were pink and moist. Extraocular movements were intact and pupils were equal round and reactive to light. Eyelids were unremarkable. PULMONARY: Unlabored respirations. Good breath sounds bilaterally. No audible rales rhonchi or wheezing was noted. CARDIOVASCULAR: There is a regular rate and rhythm without any murmurs gallops or rubs. Patient has occasional extrasystole ABDOMEN: Soft and nontender with normal bowel sounds. No palpable organomegaly was noted. There is no palpable pulsatile mass. SKIN: Skin is clear with no lesions or rashes and otherwise unremarkable. NEUROLOGIC: Patient is alert and oriented x3. Cranial nerves II through XII are grossly intact. Motor and sensory are also intact. Normal speech, volume and content. Symmetrical smile. MUSCULOSKELETAL: Normal extremities with adequate strength and full range of motion. No lower extremity swelling or edema. No calf tenderness. LYMPHATICS: No significant lymphadenopathy is noted PSYCHIATRIC: Normal psychiatric evaluation. Limitations: no limitations Course Vital Signs 03/16/17 03/16/17 12:22 13:30 Temperature 98.3 F Pulse Rate 82 84 Respiratory 20 18 Rate Blood Pressure 124/83 131/86 O2 Sat by Pulse 94 L 94 L Oximetry Medical Decision Making - Medical Decision Making EKG shows sinus rhythm with frequent PVCs at 89 bpm GA interval is 170 QRS is 86 QT interval 342 QTC is 416. Patient's EKG shows no significant ST segment elevations or depressions. Chest x-ray shows no acute abnormality. Patient has been chest pain free while in the emergency department. Dr. Felder came down to the emergency department and saw the patient and convinced the patient that she could follow-up with Dr. Null tomorrow and so he wanted the patient discharged and the patient agreed. I was not involved in this decision making process - Lab Data Result diagrams: 03/16/17 12:43 03/16/17 12:43 Lab Results 03/16/17 03/16/17 03/16/17 Range/Units 12:43 12:43 12:43 WBC 8.0 (3.8-10.6) k/uL RBC 4.91 (3.80-5.40) m/uL Hgb 13.9 (11.4-16.0) gm/dL Hct 43.8 (34.0-46.0) % MCV 89.2 (80.0-100.0) fL MCH 28.3 (25.0-35.0) pg MCHC 31.7 (31.0-37.0) g/dL RDW 14.6 (11.5-15.5) % Plt Count 284 (150-450) k/uL Neutrophils % 69 % Lymphocytes % 23 % Monocytes % 5 % Eosinophils % 3 % Basophils % 1 % Neutrophils # 5.5 (1.3-7.7) k/uL Lymphocytes # 1.8 (1.0-4.8) k/uL Monocytes # 0.4 (0-1.0) k/uL Eosinophils # 0.2 (0-0.7) k/uL Basophils # 0.0 (0-0.2) k/uL PT (9.0-12.0) sec INR (<1.2) APTT (22.0-30.0) sec D-Dimer (<0.60) mg/L FEU Sodium 142 (137-145) mmol/L Potassium 4.0 (3.5-5.1) mmol/L Chloride 107 (98-107) mmol/L Carbon Dioxide 25 (22-30) mmol/L Anion Gap 10 mmol/L BUN 14 (7-17) mg/dL Creatinine 0.90 (0.52-1.04) mg/dL Est GFR (MDRD) Af Amer >60 (>60 ml/min/1.73 sqM) Est GFR (MDRD) Non-Af >60 (>60 ml/min/1.73 sqM) Glucose 106 H (74-99) mg/dL Calcium 10.1 (8.4-10.2) mg/dL Magnesium 1.9 (1.6-2.3) mg/dL Total Bilirubin 0.5 (0.2-1.3) mg/dL AST 28 (14-36) U/L ALT 37 (9-52) U/L Alkaline Phosphatase 91 (38-126) U/L Total Creatine Kinase 46 (30-135) U/L CK-MB (CK-2) 0.6 (0.0-2.4) ng/mL CK-MB (CK-2) Rel Index 1.3 Troponin I <0.012 (0.000-0.034) ng/mL NT-Pro-B Natriuret Pep pg/mL Total Protein 7.4 (6.3-8.2) g/dL Albumin 4.4 (3.5-5.0) g/dL 03/16/17 03/16/17 Range/Units 12:43 12:43 WBC (3.8-10.6) k/uL RBC (3.80-5.40) m/uL Hgb (11.4-16.0) gm/dL Hct (34.0-46.0) % MCV (80.0-100.0) fL MCH (25.0-35.0) pg MCHC (31.0-37.0) g/dL RDW (11.5-15.5) % Plt Count (150-450) k/uL Neutrophils % % Lymphocytes % % Monocytes % % Eosinophils % % Basophils % % Neutrophils # (1.3-7.7) k/uL Lymphocytes # (1.0-4.8) k/uL Monocytes # (0-1.0) k/uL Eosinophils # (0-0.7) k/uL Basophils # (0-0.2) k/uL PT 10.8 (9.0-12.0) sec INR 1.1 (<1.2) APTT 26.5 (22.0-30.0) sec D-Dimer 0.37 (<0.60) mg/L FEU Sodium (137-145) mmol/L Potassium (3.5-5.1) mmol/L Chloride (98-107) mmol/L Carbon Dioxide (22-30) mmol/L Anion Gap mmol/L BUN (7-17) mg/dL Creatinine (0.52-1.04) mg/dL Est GFR (MDRD) Af Amer (>60 ml/min/1.73 sqM) Est GFR (MDRD) Non-Af (>60 ml/min/1.73 sqM) Glucose (74-99) mg/dL Calcium (8.4-10.2) mg/dL Magnesium (1.6-2.3) mg/dL Total Bilirubin (0.2-1.3) mg/dL AST (14-36) U/L ALT (9-52) U/L Alkaline Phosphatase (38-126) U/L Total Creatine Kinase (30-135) U/L CK-MB (CK-2) (0.0-2.4) ng/mL CK-MB (CK-2) Rel Index Troponin I (0.000-0.034) ng/mL NT-Pro-B Natriuret Pep 79 pg/mL Total Protein (6.3-8.2) g/dL Albumin (3.5-5.0) g/dL Disposition Clinical Impression: Palpitations, Chest pain Disposition: HOME SELF-CARE Instructions: Chest Pain (ED) Referrals: Manolo Hackett MD [Primary Care Provider] - 1-2 days Time of Disposition: 14:15
[2017-03-16 13:04] LABS: Basophils % (A) 1 %; CH 29.3; CHCM 33.1; Eosinophils # (A) 0.2 k/uL (0-0.7); Eosinophils % (A) 3 %; HCT 43.8 % (34.0-46.0); HDW 2.31; HGB 13.9 gm/dL (11.4-16.0); Luc # (Auto) 0.05; Luc % (Auto) 1; Lymphocytes # (A) 1.8 k/uL (1.0-4.8); Lymphocytes % (A) 23 %; MCH 28.3 pg (25.0-35.0); MCHC 31.7 g/dL (31.0-37.0); MCV 89.2 fL (80.0-100.0); Mean Platelet Volume 8.1; Monocytes # (A) 0.4 k/uL (0-1.0); Monocytes % (A) 5 %; Neutrophils # (A) 5.5 k/uL (1.3-7.7); Neutrophils % (A) 69 %; RBC 4.91 m/uL (3.80-5.40); RDW 14.6 % (11.5-15.5); WBC (Perox) 7.86
[2017-03-16 13:19] LABS: INR 1.1 (<1.2); Partial Thromboplastin Time 26.5 sec (22.0-30.0); Prothrombin Time 10.8 sec (9.0-12.0)
[2017-03-16 13:20] LABS: ALT 37 U/L (9-52); AST 28 U/L (14-36); Alkaline Phosphatase 91 U/L (38-126); Anion Gap 10 mmol/L; Blood Urea Nitrogen 14 mg/dL (7-17); Calcium 10.1 mg/dL (8.4-10.2); Carbon Dioxide 25 mmol/L (22-30); Chloride 107 mmol/L (98-107); Glucose 106 mg/dL (74-99); Magnesium 1.9 mg/dL (1.6-2.3); Non-African American GFR(MDRD) >60 (>60 ml/min/1.73 sqM); Sodium 142 mmol/L (137-145); Total Bilirubin 0.5 mg/dL (0.2-1.3); Total Protein 7.4 g/dL (6.3-8.2)
--- NOTE | 2017-03-16 13:27 | XR ---
EXAMINATION TYPE: XR chest 2V DATE OF EXAM: 03/16/2017 COMPARISON: Prior chest x-ray 02/13/2017 HISTORY: Chest pain, weakness TECHNIQUE: Frontal and lateral views of the chest are obtained. FINDINGS: There is no focal air space opacity, pleural effusion, or pneumothorax seen. The cardiac silhouette size is within normal limits. There are overlying cardiac leads. The osseous structures a re intact. IMPRESSION: No acute cardiopulmonary process.
[2017-03-16 13:32] LABS: Creatine Kinase 46 U/L (30-135)
[2017-03-16 13:43] LABS: Troponin I <0.012 ng/mL (0.000-0.034)
[2017-03-16 13:44] LABS: Creatine Kinase MB 0.6 ng/mL (0.0-2.4)
[2017-03-16] MEDS ORDERED: NITROGLYCERIN SL TABS 0.4 MG TAB SUBLINGUAL PRN (14:18)
[2017-03-16] MEDS ORDERED: HYDROcodone/APAP 7.5-325MG 1 EACH TAB PO PRN (14:34)
[2017-03-16] MEDS ORDERED: LORazepam 0.5 MG TAB PO PRN (14:34)
--- NOTE | 2017-03-16 15:02 | P.CONS ---
History of Present Illness - Reason for Consult Possible admission, palpitations, - History of Present Illness Patient is a pleasant 61-year-old female well-known to me from her previous hospital physician came in with complaints of the palpitations and excessive sweating diaphoretic and flushed. Patient given a similar symptoms in the past patient had a stress test month of August which was negative echocardiogram in month of January which is now normal and patient had event monitor as well as a Holter monitor with both of which did not show any significant abnormalities patient appears to be an anxious person. I was called from ER for possible admission patient denied any chest pain denied any nausea vomiting patient denied any fever chills. Since patient was extensively evaluated in the recent past with similar symptoms without any significant abnormality, I do not believe patient will need or benefit from overnight monitoring this time and patient was asked to follow with Dr. Granados, her pill packer and will make appropriate appointments to follow Dr. Granados tomorrow, same the was discussed with the patient and patient is agreeable to see Dr. Granados in the clinic tomorrow. EKG showed some ST T wave changes nonspecific and unchanged compared to previous EKGs Review of Systems REVIEW OF SYSTEMS: CONSTITUTIONAL: No fever, no malaise, no fatigue. HEENT: No recent visual problems or hearing problems. Denied any sore throat. CARDIOVASCULAR: No chest pain, orthopnea, PND, no syncope. PULMONARY: No shortness of breath, no cough, no hemoptysis. GASTROINTESTINAL: No diarrhea, no nausea, no vomiting, no abdominal pain. Normoactive bowel sounds. NEUROLOGICAL: No headaches, no weakness, no numbness. HEMATOLOGICAL: Denies any bleeding or petechiae. GENITOURINARY: Denies any burning micturition, frequency, or urgency. MUSCULOSKELETAL/RHEUMATOLOGICAL: Denies any joint pain, swelling, or any muscle pain. ENDOCRINE: Denies any polyuria or polydipsia. The rest of the 14-point review of systems is negative. Past Medical History Past Medical History: Atrial Fibrillation, GERD/Reflux, Hyperlipidemia, Hypertension, Osteoarthritis (OA) Additional Past Medical History / Comment(s): Pt states last admission she was told she had been having Afib, Low back pain, DDD, PILI SCIATIC NERVE PAIN. History of Any Multi-Drug Resistant Organisms: None Reported Past Surgical History: Joint Replacement Additional Past Surgical History / Comment(s): Total L/R hip arthroplasty, ECTOPIC PREG - LT SALPINGECTOMY. Past Anesthesia/Blood Transfusion Reactions: No Reported Reaction Past Psychological History: Anxiety Smoking Status: Former smoker Past Alcohol Use History: None Reported Past Drug Use History: None Reported - Past Family History Mother Family Medical History: Cancer Additional Family Medical History / Comment(s): Pancreatic with mets. Mother at age 68yrs. Father Family Medical History: Cancer Additional Family Medical History / Comment(s): Small cell lung carcinoma. Medications and Allergies Home Medications Medication Instructions Recorded Confirmed Type Atorvastatin [Lipitor] 20 mg PO HS #30 tab 09/13/16 03/16/17 Rx HYDROcodone/APAP 7.5-325MG [[place] 0.5 tab PO DAILY PRN 10/18/16 03/16/17 History 7.5-325] LORazepam [Ativan] 0.5 mg PO BID PRN 02/13/17 03/16/17 History amLODIPine [Norvasc] 2.5 mg PO DAILY 03/16/17 03/16/17 History Allergies Allergy/AdvReac Type Severity Reaction Status Date / Time No Known Allergies Allergy Verified 03/16/17 14:09 Physical Exam Vitals: Vital Signs Temp Pulse Resp BP Pulse Ox 03/16/17 13:30 84 18 131/86 94 L 03/16/17 12:22 98.3 F 82 20 124/83 94 L Intake and Output 03/15/17 03/16/17 03/16/17 22:59 06:59 14:59 Other: Weight 74.843 kg Patient Weight 03/17/17 06:59 Weight 74.843 kg PHYSICAL EXAMINATION: GENERAL: The patient is alert and oriented x3, not in any acute distress. Well developed, well nourished. HEENT: Pupils are round and equally reacting to light. EOMI. No scleral icterus. No conjunctival pallor. Normocephalic, atraumatic. No pharyngeal erythema. No thyromegaly. CARDIOVASCULAR: S1 and S2 present. No murmurs, rubs, or gallops. PULMONARY: Chest is clear to auscultation, no wheezing or crackles. ABDOMEN: Soft, nontender, nondistended, normoactive bowel sounds. No palpable organomegaly. MUSCULOSKELETAL: No joint swelling or deformity. EXTREMITIES: No cyanosis, clubbing, or pedal edema. NEUROLOGICAL: Gross neurological examination did not reveal any focal deficits. SKIN: No rashes. Results CBC & Chem 7: 03/16/17 12:43 03/16/17 12:43 Labs: Abnormal Lab Results - Last 24 Hours (Table) 03/16/17 Range/Units 12:43 Glucose 106 H (74-99) mg/dL Assessment and Plan Plan: 1 palpitations: Unsure of the exact etiology probably anxiety patient was extensively evaluated in the past patient was determined to follow with her pill packer Dr. Granados as an outpatient patient will not benefit from repeat hospitalization #2 hypertension #3 anxiety disorder
[2017-03-16 15:03] VITALS: BP 150/77; PULSE 150; RESP 16; TEMP 97.9
[2017-03-16] MEDS ORDERED: NITROGLYCERIN OINT 1 INCH/GM PACKET TOPICAL SCH (18:00)
[2017-03-16] MEDS ORDERED: ATORVASTATIN 20 MG TAB PO SCH (21:00)
[2017-03-17] MEDS ORDERED: ASPIRIN 325 MG TAB PO SCH (09:00)
== END 2017-03-16 15:13 | disposition home or self-care (01) ==
LOC: EC 12:01 → 6SEL 14:18 → UNDOADMOB 14:18 → EC 15:13
DX: R07.9 Chest pain, unspecified (principal); R00.2 Palpitations; R06.02 Shortness of breath; I10 Essential (primary) hypertension; Z87.891 Personal history of nicotine dependence; Z79.899 Other long term (current) drug therapy
CPT/HCPCS: 36415; 71020; 80053; 82550; 82553; 83735; 83880; 84484; 85025; 85379; 85610; 85730; 93005; 99285

== ENCOUNTER 2017-03-17 17:54 | Emergency (ER) | payer MEDICARE ==
[2017-03-17 18:28] LABS: Basophils # (A) 0.1 k/uL (0-0.2); Basophils % (A) 1 %; CH 29.6; Eosinophils # (A) 0.1 k/uL (0-0.7); Eosinophils % (A) 2 %; HCT 40.3 % (34.0-46.0); HDW 2.41; HGB 13.8 gm/dL (11.4-16.0); Luc # (Auto) 0.13; Luc % (Auto) 2; Lymphocytes # (A) 2.4 k/uL (1.0-4.8); Lymphocytes % (A) 34 %; MCH 29.9 pg (25.0-35.0); MCHC 34.2 g/dL (31.0-37.0); MCV 87.6 fL (80.0-100.0); Mean Platelet Volume 7.4; Monocytes # (A) 0.5 k/uL (0-1.0); Monocytes % (A) 7 %; Neutrophils # (A) 3.8 k/uL (1.3-7.7); Neutrophils % (A) 55 %; RDW 12.9 % (11.5-15.5); WBC (Perox) 6.83
[2017-03-17 18:32] LABS: INR 1.1 (<1.2); Partial Thromboplastin Time 25.5 sec (22.0-30.0); Prothrombin Time 10.9 sec (9.0-12.0)
[2017-03-17 18:35] LABS: ALT 38 U/L (9-52); AST 35 U/L (14-36); Alkaline Phosphatase 81 U/L (38-126); Anion Gap 11 mmol/L; Blood Urea Nitrogen 14 mg/dL (7-17); Calcium 9.5 mg/dL (8.4-10.2); Carbon Dioxide 20 mmol/L (22-30); Chloride 107 mmol/L (98-107); Glucose 90 mg/dL (74-99); Magnesium 1.8 mg/dL (1.6-2.3); Non-African American GFR(MDRD) >60 (>60 ml/min/1.73 sqM); Potassium 4.4 mmol/L (3.5-5.1); Sodium 138 mmol/L (137-145); Total Bilirubin 0.8 mg/dL (0.2-1.3); Total Protein 7.5 g/dL (6.3-8.2)
[2017-03-17 18:43] LABS: Creatine Kinase 48 U/L (30-135)
[2017-03-17 18:56] LABS: Creatine Kinase MB 0.5 ng/mL (0.0-2.4); Troponin I <0.012 ng/mL (0.000-0.034)
[2017-03-17 19:24] VITALS: RESP 18
--- NOTE | 2017-03-17 20:28 | ED ---
General Adult HPI - General Chief complaint: Chest Pain Stated complaint: chest pain Time Seen by Provider: 03/17/17 19:10 Source: EMS, RN notes reviewed, old records reviewed Mode of arrival: ambulatory Limitations: no limitations - History of Present Illness Initial comments: This is a 61-year-old female to the ER for evaluation of chest pain. Patient is coming to ER for facility. History of chest pain. Patient's wounds only for evaluation of chest pain and similar complaints. Patient was just discharged from ER earlier today. Patient states she's had continued pain since she went home. She did take nitro which has helped her pain. Denies fever cough congestion denies nausea vomiting or diarrhea. Modifying factors for pain - Related Data Home Medications Medication Instructions Recorded Confirmed HYDROcodone/APAP 7.5-325MG [[place] 0.5 tab PO DAILY PRN 10/18/16 03/17/17 7.5-325] LORazepam [Ativan] 0.5 mg PO BID PRN 02/13/17 03/17/17 amLODIPine [Norvasc] 2.5 mg PO DAILY 03/16/17 03/17/17 Previous Rx's Medication Instructions Recorded Atorvastatin [Lipitor] 20 mg PO HS #30 tab 09/13/16 Nitroglycerin Sl Tabs [Nitrostat] 0.4 mg SUBLINGUAL Q5M PRN #25 tab 03/17/17 Allergies Allergy/AdvReac Type Severity Reaction Status Date / Time No Known Allergies Allergy Verified 03/17/17 18:19 Review of Systems ROS Statement: Those systems with pertinent positive or pertinent negative responses have been documented in the HPI. ROS Other: All systems not noted in ROS Statement are negative. Past Medical History Past Medical History: Atrial Fibrillation, GERD/Reflux, Hyperlipidemia, Hypertension, Osteoarthritis (OA) Additional Past Medical History / Comment(s): Pt states last admission she was told she had been having Afib, Low back pain, DDD, PILI SCIATIC NERVE PAIN. History of Any Multi-Drug Resistant Organisms: None Reported Past Surgical History: Joint Replacement Additional Past Surgical History / Comment(s): Total L/R hip arthroplasty, ECTOPIC PREG - LT SALPINGECTOMY. Past Anesthesia/Blood Transfusion Reactions: No Reported Reaction Past Psychological History: Anxiety Smoking Status: Former smoker Past Alcohol Use History: None Reported Past Drug Use History: None Reported - Past Family History Mother Family Medical History: Cancer Additional Family Medical History / Comment(s): Pancreatic with mets. Mother at age 68yrs. Father Family Medical History: Cancer Additional Family Medical History / Comment(s): Small cell lung carcinoma. General Exam Limitations: no limitations General appearance: alert, in no apparent distress, anxious Head exam: Present: atraumatic, normocephalic, normal inspection Eye exam: Present: normal appearance, PERRL, EOMI. Absent: scleral icterus, conjunctival injection, periorbital swelling ENT exam: Present: normal exam, mucous membranes moist Neck exam: Present: normal inspection. Absent: tenderness, meningismus, lymphadenopathy Respiratory exam: Present: normal lung sounds bilaterally. Absent: respiratory distress, wheezes, rales, rhonchi, stridor Cardiovascular Exam: Present: regular rate, normal rhythm, normal heart sounds. Absent: systolic murmur, diastolic murmur, rubs, gallop, clicks GI/Abdominal exam: Present: soft, normal bowel sounds. Absent: distended, tenderness, guarding, rebound, rigid Extremities exam: Present: normal inspection, full ROM, normal capillary refill. Absent: tenderness, pedal edema, joint swelling, calf tenderness Back exam: Present: normal inspection Neurological exam: Present: alert, oriented X3, CN II-XII intact Psychiatric exam: Present: normal affect, normal mood Skin exam: Present: warm, dry, intact, normal color. Absent: rash Course Vital Signs 03/17/17 03/17/17 03/17/17 17:59 18:22 18:53 Temperature 98.2 F Pulse Rate 58 L 57 L 76 Respiratory 18 17 16 Rate Blood Pressure 144/81 146/73 O2 Sat by Pulse 98 97 97 Oximetry 03/17/17 03/17/17 03/17/17 19:23 20:00 20:43 Temperature 97.4 F L Pulse Rate 61 63 75 Respiratory 18 18 18 Rate Blood Pressure 146/73 135/83 153/75 O2 Sat by Pulse 97 97 99 Oximetry - Reevaluation(s) Reevaluation #1: Spoke with because regarding patient, patient is had thorough outpatient workup regarding cause of chest pain. All negative EKG Findings - EKG Comments: EKG Findings:: EKG shows sinus bradycardia rate of 53, AK 166, QRS 90, QTc 397 Medical Decision Making - Medical Decision Making 61 female DEL with recurrent chest pain, anxiety, patient given a trial for pain although she does seem to is date that it helps. Otherwise patient can be discharged home - Lab Data Result diagrams: 03/17/17 18:00 03/17/17 18:00 Lab Results 03/17/17 03/17/17 03/17/17 Range/Units 18:00 18:00 18:00 WBC (3.8-10.6) k/uL RBC (3.80-5.40) m/uL Hgb (11.4-16.0) gm/dL Hct (34.0-46.0) % MCV (80.0-100.0) fL MCH (25.0-35.0) pg MCHC (31.0-37.0) g/dL RDW (11.5-15.5) % Plt Count (150-450) k/uL Neutrophils % % Lymphocytes % % Monocytes % % Eosinophils % % Basophils % % Neutrophils # (1.3-7.7) k/uL Lymphocytes # (1.0-4.8) k/uL Monocytes # (0-1.0) k/uL Eosinophils # (0-0.7) k/uL Basophils # (0-0.2) k/uL PT 10.9 (9.0-12.0) sec INR 1.1 (<1.2) APTT 25.5 (22.0-30.0) sec Sodium 138 (137-145) mmol/L Potassium 4.4 (3.5-5.1) mmol/L Chloride 107 (98-107) mmol/L Carbon Dioxide 20 L (22-30) mmol/L Anion Gap 11 mmol/L BUN 14 (7-17) mg/dL Creatinine 0.80 (0.52-1.04) mg/dL Est GFR (MDRD) Af Amer >60 (>60 ml/min/1.73 sqM) Est GFR (MDRD) Non-Af >60 (>60 ml/min/1.73 sqM) Glucose 90 (74-99) mg/dL Calcium 9.5 (8.4-10.2) mg/dL Magnesium 1.8 (1.6-2.3) mg/dL Total Bilirubin 0.8 (0.2-1.3) mg/dL AST 35 (14-36) U/L ALT 38 (9-52) U/L Alkaline Phosphatase 81 (38-126) U/L Total Creatine Kinase 48 (30-135) U/L CK-MB (CK-2) 0.5 (0.0-2.4) ng/mL CK-MB (CK-2) Rel Index 1.0 Troponin I <0.012 (0.000-0.034) ng/mL Total Protein 7.5 (6.3-8.2) g/dL Albumin 4.3 (3.5-5.0) g/dL 03/17/17 Range/Units 18:00 WBC 7.0 (3.8-10.6) k/uL RBC 4.60 (3.80-5.40) m/uL Hgb 13.8 (11.4-16.0) gm/dL Hct 40.3 (34.0-46.0) % MCV 87.6 (80.0-100.0) fL MCH 29.9 (25.0-35.0) pg MCHC 34.2 (31.0-37.0) g/dL RDW 12.9 (11.5-15.5) % Plt Count 262 (150-450) k/uL Neutrophils % 55 % Lymphocytes % 34 % Monocytes % 7 % Eosinophils % 2 % Basophils % 1 % Neutrophils # 3.8 (1.3-7.7) k/uL Lymphocytes # 2.4 (1.0-4.8) k/uL Monocytes # 0.5 (0-1.0) k/uL Eosinophils # 0.1 (0-0.7) k/uL Basophils # 0.1 (0-0.2) k/uL PT (9.0-12.0) sec INR (<1.2) APTT (22.0-30.0) sec Sodium (137-145) mmol/L Potassium (3.5-5.1) mmol/L Chloride (98-107) mmol/L Carbon Dioxide (22-30) mmol/L Anion Gap mmol/L BUN (7-17) mg/dL Creatinine (0.52-1.04) mg/dL Est GFR (MDRD) Af Amer (>60 ml/min/1.73 sqM) Est GFR (MDRD) Non-Af (>60 ml/min/1.73 sqM) Glucose (74-99) mg/dL Calcium (8.4-10.2) mg/dL Magnesium (1.6-2.3) mg/dL Total Bilirubin (0.2-1.3) mg/dL AST (14-36) U/L ALT (9-52) U/L Alkaline Phosphatase (38-126) U/L Total Creatine Kinase (30-135) U/L CK-MB (CK-2) (0.0-2.4) ng/mL CK-MB (CK-2) Rel Index Troponin I (0.000-0.034) ng/mL Total Protein (6.3-8.2) g/dL Albumin (3.5-5.0) g/dL Disposition Clinical Impression: Chest pain Disposition: HOME SELF-CARE Condition: Good Instructions: Chest Pain (ED) Prescriptions: Nitroglycerin Sl Tabs [Nitrostat] 0.4 mg SUBLINGUAL Q5M PRN #25 tab PRN Reason: Pain Referrals: Manolo Hackett MD [Primary Care Provider] - 1-2 days
[2017-03-17] MEDS ORDERED: NITROGLYCERIN OINT 1 INCH/GM PACKET TOPICAL STA (20:36)
[2017-03-17 20:45] VITALS: BP 153/75; PULSE 75; TEMP 97.4
== END 2017-03-17 20:59 | disposition home or self-care (01) ==
LOC: EC 17:54
DX: R07.9 Chest pain, unspecified (principal); I10 Essential (primary) hypertension; Z87.891 Personal history of nicotine dependence; Z79.899 Other long term (current) drug therapy
CPT/HCPCS: 36415; 80053; 82550; 82553; 83735; 84484; 85025; 85610; 85730; 93005; 99285

== ENCOUNTER 2017-05-05 06:26 | Day surgery (SDC) | payer MEDICARE ==
[2017-05-05] MEDS ORDERED: ATORVASTATIN 80 MG TAB PO STA (06:30)
[2017-05-05] MEDS ORDERED: NITROGLYCERIN SL TABS 0.4 MG TAB SUBLINGUAL PRN ×2 (06:30→08:44)
[2017-05-05] MEDS ORDERED: ASPIRIN 325 MG TAB PO STA (06:30)
[2017-05-05] MEDS ORDERED: ALPRAZolam 0.5 MG TAB PO PRN (06:30)
[2017-05-05] MEDS ORDERED: SODIUM CHLORIDE 0.9% 1,000 ML in EMPTY BAG 1 BAG IV ONE (06:30)
[2017-05-05] MEDS ORDERED: ALPRAZolam 0.25 MG TAB PO PRN (06:30)
[2017-05-05 07:05] LABS: Basophils # (A) 0.1 k/uL (0-0.2); Basophils % (A) 1 %; Eosinophils # (A) 0.2 k/uL (0-0.7); Eosinophils % (A) 4 %; HCT 44.3 % (34.0-46.0); HGB 13.7 gm/dL (11.4-16.0); Lymphocytes % (A) 41 %; MCH 28.7 pg (25.0-35.0); Monocytes # (A) 0.3 k/uL (0-1.0); Monocytes % (A) 6 %; Neutrophils # (A) 2.3 k/uL (1.3-7.7); Neutrophils % (A) 46 %; Platelet Count 271 k/uL (150-450); RBC 4.78 m/uL (3.80-5.40); RDW 14.4 % (11.5-15.5); WBC 4.9 k/uL (3.8-10.6)
[2017-05-05 07:11] LABS: MCV 92.6 fL (80.0-100.0)
[2017-05-05 07:19] LABS: Anion Gap 11 mmol/L; Blood Urea Nitrogen 14 mg/dL (7-17); Carbon Dioxide 27 mmol/L (22-30); Chloride 105 mmol/L (98-107); Glucose 80 mg/dL (74-99); Potassium 3.9 mmol/L (3.5-5.1); Sodium 143 mmol/L (137-145)
[2017-05-05] MEDS ORDERED: MIDAZOLAM 2 MG/2 ML VIAL ONE (07:37)
[2017-05-05] MEDS ORDERED: VERAPAMIL 2.5 MG/ML 2 ML AMP ONE (07:37)
[2017-05-05] MEDS ORDERED: LIDOCAINE 2% INJ 20 MG/ML (20 ML MDV) ONE ×2 (07:38)
[2017-05-05] MEDS: MIDAZOLAM 2 MG/2 ML VIAL IV ONE ×2 (07:55→08:17)
[2017-05-05] MEDS ORDERED: LIDOCAINE 2% INJ 20 MG/ML SQ ONE (07:57)
[2017-05-05] MEDS: NITROGLYCERIN 1000MCG/10ML SYRINGE INTRACORON ONE ×7 (08:03→08:29)
[2017-05-05] MEDS ORDERED: BIVALIRUDIN BOLUS 250 MG/50 ML IV ONE (08:15)
[2017-05-05] MEDS ORDERED: BIVALIRUDIN 250 MG in SODIUM CHLORIDE 0.9% 50 ML IV ONE (08:16)
[2017-05-05] MEDS ORDERED: NITROGLYCERIN 1000MCG/10ML SYRINGE INTRACORON ONE (08:35)
[2017-05-05] MEDS ORDERED: CLOPIDOGREL 75 MG TAB ONE (08:37)
[2017-05-05] MEDS ORDERED: IOHEXOL 350 MG/ML 125ML BOTTLE INJ ONE (08:42)
[2017-05-05] MEDS ORDERED: CLOPIDOGREL 75 MG TAB PO ONE (08:42)
[2017-05-05] MEDS ORDERED: HEPARIN SODIUM 1,000 UN/ML (10ML VL) ONE (08:44)
[2017-05-05] MEDS ORDERED: MAG HYDROX/AL HYDROX/SIMETH 30 ML CUP PO PRN (08:44)
[2017-05-05] MEDS ORDERED: RX INFO: IV CONTRAST WAS GIVEN 1 EACH MISC MISCELLANE PRN ×2 (08:44→13:29)
[2017-05-05] MEDS ORDERED: ZOLPIDEM 5 MG TAB PO PRN (08:44)
[2017-05-05] MEDS ORDERED: ATROPINE SULFATE 0.1 MG/ML 10ML SYRINGE IV PRN (08:44)
[2017-05-05] MEDS ORDERED: SODIUM CHLORIDE 0.9% 1,000 ML IV SCH ×2 (08:45→13:30)
[2017-05-05] MEDS ORDERED: METOPROLOL TARTRATE 25 MG TAB PO SCH (09:00)
[2017-05-05] MEDS ORDERED: MAG HYDROX/AL HYDROX/SIMETH 30 ML CUP ONE (09:02)
[2017-05-05] MEDS ORDERED: hydrALAZINE HCL 20 MG/ML 1 ML VIAL IVP STA (09:45)
[2017-05-05] MEDS ORDERED: hydrALAZINE HCL 20 MG/ML 1 ML VIAL ONE (09:47)
--- NOTE | 2017-05-05 09:52 | LTR ---
May 05, 2017 Re: James Adorno Dear Dr. Hackett: Ms. James Adorno continues to have intermittent episodes of chest discomfort and had multiple hospital admission with chest discomfort. She underwent dobutamine stress echocardiogram and that came in to be unremarkable. But in view of the recurrent chest discomfort, I decided to pursue with a heart catheterization which I performed today and revealed critical disease involving the left circumflex and severe disease involving the right coronary artery. She underwent successful stenting of the left circumflex with good angiographic results and without any complication. I want to thank you for allowing me to participate in her care and please do not hesitate to call if you have any question or concern. Sincerely, MD DIMITRI Kenyon / ARPIT: [id number] /
--- NOTE | 2017-05-05 09:52 | CC ---
CARDIAC CATHETERIZATION REPORT DATE OF SERVICE: 05/05/2017 PERFORMING PHYSICIAN: Rhett Granados MD, director of land. PROCEDURE PERFORMED: 1. Selective right and left coronary angiogram. 2. Left heart catheterization. 3. Successful stenting of the distal left circumflex coronary artery using 2.25 x 20 mm Promus Premier drug-eluting stent with good angiographic results. INDICATION: This is a pleasant 61-year-old female patient who was experiencing intermittent episodes of chest discomfort and had multiple hospital admissions with chest discomfort. She underwent dobutamine stress echocardiogram and that came into be unremarkable, but in view of the multiple hospital admission with chest discomfort, I recommended proceeding with a heart catheterization. APPROACH: Right common femoral artery. COMPLICATION: None. LEVEL OF SEDATION: Moderate with sedation length of 40 minutes. PROCEDURE DESCRIPTION: After obtaining an informed consent, the patient was brought to the cardiac lab engineer. The right common femoral artery was cannulated using micropuncture technique, the micropuncture wire passed easily then I placed a 6-[place] sheath in the right common femoral artery. After that, I did selective right and left coronary angiogram using JR4 and JL4 catheters. After that I did left heart catheterization and that was performed using the JL4 catheter which flipped into the LV. I did pullback after that. After that, I decided to intervene on the left circumflex. Please see a separate paragraph for that. SELECTIVE CORONARY ANGIOGRAM: 1. The right coronary artery is a large caliber vessel and it is a dominant vessel. The proximal RCA has a long tubular lesion appeared to be in the range of 70% to 80%. The lesion did not open in spite of giving multiple injections of nitroglycerin. The mid RCA appeared to have another lesion in the range of 50% to 60% and RCA distally appeared to be angiographically normal. 2. The left main is a short left main, but angiographically normal. It bifurcates into the left circumflex and left anterior descending artery. 3. The left circumflex is a large caliber vessel and it is a nondominant vessel. The proximal left circumflex appeared to be angiographically normal. The mid left circumflex has a lesion in the range of 50%. The left circumflex in the midportion gives rise into the first and second obtuse marginal branches. The first obtuse marginal branch is a medium caliber vessel with a lesion proximally about 50%. The second OM is also a medium caliber vessel with a lesion proximally about 30%. The left circumflex distally has a long tubular lesion appeared to be in the range of 99%. 4. The left anterior descending artery; the proximal LAD appeared to have mild disease only and gives rise into the first diagonal branch, which is a medium caliber vessel with severe disease appeared to be in the range of 70%. The mid LAD and distal LAD appeared to be angiographically normal. The LAD in the midportion gives rise into a second diagonal branch which has mild disease in the proximal portion. HEMODYNAMICS: The left ventricular end-diastolic pressure was 12 mmHg and no gradient was identified across the aortic valve. PCI OF THE LEFT CIRCUMFLEX: Anticoagulation was initiated using Angiomax. Subsequently I did engage the left main using JL4 guide. A whisper wire was used to wire the left circumflex. Subsequently I did balloon angioplasty of the distal left circumflex using 2.0 x 15 mm balloon and after that I deployed 2.25 x 20 mm Promus Premier drug-eluting stent where the stent was positioned under fluoroscopy guidance and deployed under 12 atmospheres for 20 seconds. The following angiogram showed good angiographic results without perforation and without dissection with a good flow in the left circumflex. CONCLUSION: 1. Severe 2 vessel coronary artery disease involving the proximal right coronary artery and distal left circumflex. 2. Successful stenting of the distal left circumflex using 2.25 x 20 mm Promus Premier drug-eluting stent with good angiographic results. POSTPROCEDURE MANAGEMENT: 1. Dual anti-platelet therapy and statin. 2. Follow up with the patient. MMODL / IJN: [id number] /
[2017-05-05] MEDS ORDERED: LISINOPRIL 5 MG TAB PO STA (11:42)
[2017-05-05] MEDS: HYDROcodone/APAP 7.5-325MG 1 EACH TAB PO PRN (13:27)
[2017-05-05] MEDS ORDERED: HYDROmorphone 2 MG/ML 1 ML SYRINGE IVP STA (15:16)
[2017-05-05] MEDS: ALPRAZolam 0.5 MG TAB PO SCH ×2 (17:18→22:34)
[2017-05-05 18:20] VITALS: BMI 26.4
[2017-05-06] MEDS: HYDROcodone/APAP 7.5-325MG 1 EACH TAB PO PRN (03:38)
[2017-05-06 06:24] LABS: Basophils # (A) 0.1 k/uL (0-0.2); Basophils % (A) 1 %; Eosinophils # (A) 0.2 k/uL (0-0.7); Eosinophils % (A) 4 %; HCT 39.4 % (34.0-46.0); HGB 12.1 gm/dL (11.4-16.0); Lymphocytes # (A) 1.9 k/uL (1.0-4.8); Lymphocytes % (A) 35 %; MCH 28.6 pg (25.0-35.0); MCHC 30.8 g/dL (31.0-37.0); MCV 92.7 fL (80.0-100.0); Mean Platelet Volume 8.2; Monocytes # (A) 0.3 k/uL (0-1.0); Monocytes % (A) 6 %; Neutrophils # (A) 2.8 k/uL (1.3-7.7); Neutrophils % (A) 52 %; Platelet Count 241 k/uL (150-450); RBC 4.25 m/uL (3.80-5.40); RDW 13.9 % (11.5-15.5); WBC 5.4 k/uL (3.8-10.6)
[2017-05-06 06:41] LABS: Anion Gap 8 mmol/L; Blood Urea Nitrogen 13 mg/dL (7-17); Calcium 9.2 mg/dL (8.4-10.2); Carbon Dioxide 27 mmol/L (22-30); Chloride 106 mmol/L (98-107); Glucose 83 mg/dL (74-99); Potassium 4.6 mmol/L (3.5-5.1); Sodium 141 mmol/L (137-145)
[2017-05-06 08:22] VITALS: PULSE 72; RESP 16; TEMP 98.1
[2017-05-06] MEDS ORDERED: ASPIRIN 81 MG PO SCH (09:00)
[2017-05-06] MEDS ORDERED: LISINOPRIL 5 MG TAB PO SCH (09:00)
[2017-05-06] MEDS ORDERED: CLOPIDOGREL 75 MG TAB PO SCH (09:00)
[2017-05-06 09:46] VITALS: BP 113/74
[2017-05-06] MEDS: ALPRAZolam 0.5 MG TAB PO SCH (10:04)
--- NOTE | 2017-05-06 10:08 | DS ---
DISCHARGE SUMMARY ADMISSION DATE: May 05, 2017. DISCHARGE DATE: May 06, 2017. BRIEF HISTORY: This is a pleasant 61-year-old female patient who was experiencing intermittent episodes of chest discomfort and had multiple hospital admissions with chest discomfort. She was admitted to the hospital yesterday and underwent a heart catheterization which revealed severe disease involving the RCA and critical disease involving the left circumflex. The patient underwent successful stenting of the left circumflex with good angiographic results and without any complication with the procedure was performed from the right groin. On follow up with her today, she is doing good and she is asymptomatic. The right groin is soft and nontender and without any bruises. The patient is going to be discharged home on dual anti-platelet therapy and statin and I will follow up with the patient next week in the office. MMCHEL / ARPIT: [id number] /
[2017-05-06] MEDS ORDERED: ATORVASTATIN 80 MG TAB PO SCH (21:00)
== END 2017-05-06 10:24 | disposition home or self-care (01) ==
LOC: CATHCVL 06:26 → 6SEL 08:38 → CATHCVL 05-06 10:24
PROVIDERS: ATTEND Internal Medicine Interventional Cardiology
DX: I25.110 Atherosclerotic heart disease of native coronary artery with unstable angina pectoris (principal); I10 Essential (primary) hypertension; Z87.891 Personal history of nicotine dependence; E78.5 Hyperlipidemia, unspecified; Z79.82 Long term (current) use of aspirin; Z79.891 Long term (current) use of opiate analgesic; Z79.899 Other long term (current) drug therapy
CPT/HCPCS: 93458; 80048 ×2; 85025 ×2; C9600; C1769 ×3; C1887; C1725; C1894 ×2; C1874; J2001; J2250; J1170; J0360; J0583; Q9967

== ENCOUNTER 2017-05-10 20:06 | Inpatient (IN) | payer MEDICARE ==
--- NOTE | 2017-05-10 20:24 | ED ---
General Adult HPI - General Chief complaint: Chest Pain Stated complaint: heart palpitations/feet swelling Time Seen by Provider: 05/10/17 20:16 Source: patient, RN notes reviewed, old records reviewed Mode of arrival: wheelchair Limitations: no limitations - History of Present Illness Initial comments: This is a 61-year-old female to the ER for evaluation. Patient has recent history of heart disease, positive stent placement. Patient also has history of anxiety, admits increasing stress increasing shortness of breath or increasing chest pain. Patient denies fever no cough or congestion - Related Data Home Medications Medication Instructions Recorded Confirmed HYDROcodone/APAP 7.5-325MG [[place] 0.5 tab PO DAILY PRN 10/18/16 05/10/17 7.5-325] ALPRAZolam [Xanax] 1 mg PO BID 05/04/17 05/10/17 Aspirin 81 mg PO DAILY 05/04/17 05/10/17 Atorvastatin [Lipitor] 20 mg PO HS 05/10/17 05/10/17 Previous Rx's Medication Instructions Recorded Clopidogrel [Plavix] 75 mg PO DAILY #90 tab 05/06/17 Allergies Allergy/AdvReac Type Severity Reaction Status Date / Time No Known Allergies Allergy Verified 05/10/17 20:50 Review of Systems ROS Statement: Those systems with pertinent positive or pertinent negative responses have been documented in the HPI. ROS Other: All systems not noted in ROS Statement are negative. Past Medical History Past Medical History: Atrial Fibrillation, Chest Pain / Angina, GERD/Reflux, Hyperlipidemia, Hypertension, Osteoarthritis (OA) Additional Past Medical History / Comment(s): Low back pain, DDD, PILI SCIATIC NERVE PAIN, unsure of A-fib but states having rapid heart rate History of Any Multi-Drug Resistant Organisms: None Reported Past Surgical History: Joint Replacement Additional Past Surgical History / Comment(s): Total L/R hip arthroplasty, ECTOPIC PREG - LT SALPINGECTOMY. Past Anesthesia/Blood Transfusion Reactions: No Reported Reaction Additional Past Anesthesia/Blood Transfusion Reaction / Comment(s): after hip replacement last time had very slow pulse Past Psychological History: Anxiety Smoking Status: Former smoker Past Alcohol Use History: None Reported Past Drug Use History: None Reported - Past Family History Mother Family Medical History: Cancer Additional Family Medical History / Comment(s): Pancreatic with mets. Mother at age 68yrs. Father Family Medical History: Cancer Additional Family Medical History / Comment(s): Small cell lung carcinoma. General Exam Limitations: no limitations General appearance: alert, in no apparent distress, anxious Head exam: Present: atraumatic, normocephalic, normal inspection Eye exam: Present: normal appearance, PERRL, EOMI. Absent: scleral icterus, conjunctival injection, periorbital swelling ENT exam: Present: normal exam, mucous membranes moist Neck exam: Present: normal inspection. Absent: tenderness, meningismus, lymphadenopathy Respiratory exam: Present: normal lung sounds bilaterally. Absent: respiratory distress, wheezes, rales, rhonchi, stridor Cardiovascular Exam: Present: regular rate, normal rhythm, normal heart sounds. Absent: systolic murmur, diastolic murmur, rubs, gallop, clicks GI/Abdominal exam: Present: soft, normal bowel sounds. Absent: distended, tenderness, guarding, rebound, rigid Extremities exam: Present: normal inspection, full ROM, normal capillary refill. Absent: tenderness, pedal edema, joint swelling, calf tenderness Back exam: Present: normal inspection Neurological exam: Present: alert, oriented X3, CN II-XII intact Psychiatric exam: Present: normal affect, normal mood Skin exam: Present: warm, dry, intact, normal color. Absent: rash Course Vital Signs 05/10/17 05/10/17 20:10 20:30 Temperature 97.8 F Pulse Rate 73 57 L Respiratory 20 18 Rate Blood Pressure 190/91 157/82 O2 Sat by Pulse 98 97 Oximetry - Reevaluation(s) Reevaluation #1: 05/10/17 21:16 In speaking with patient she can becomes very emotional about her recent illness and her state of health, patient's heart rate became very elevated as well as her blood pressure EKG Findings - EKG Comments: EKG Findings:: EKG shows sinus rhythm rate of 62, SD 186, QRS 92, QTc 416 Medical Decision Making - Medical Decision Making 61 female to the ER for various of chest pain recent stent placement, patient will be admitted for further evaluation regarding ALLERGY, place and anticoagulation hemodynamic monitoring and repeat troponins - Lab Data Result diagrams: 05/10/17 20:22 05/10/17 20:22 Lab Results 05/10/17 05/10/17 05/10/17 Range/Units 20:22 20:22 20:22 WBC 7.0 (3.8-10.6) k/uL RBC 4.44 (3.80-5.40) m/uL Hgb 12.9 (11.4-16.0) gm/dL Hct 39.4 (34.0-46.0) % MCV 88.6 (80.0-100.0) fL MCH 29.1 (25.0-35.0) pg MCHC 32.9 (31.0-37.0) g/dL RDW 12.6 (11.5-15.5) % Plt Count 269 (150-450) k/uL Neutrophils % 59 % Lymphocytes % 32 % Monocytes % 5 % Eosinophils % 4 % Basophils % 1 % Neutrophils # 4.1 (1.3-7.7) k/uL Lymphocytes # 2.2 (1.0-4.8) k/uL Monocytes # 0.3 (0-1.0) k/uL Eosinophils # 0.3 (0-0.7) k/uL Basophils # 0.1 (0-0.2) k/uL PT (9.0-12.0) sec INR (<1.2) APTT (22.0-30.0) sec Sodium 143 (137-145) mmol/L Potassium 3.7 (3.5-5.1) mmol/L Chloride 105 (98-107) mmol/L Carbon Dioxide 25 (22-30) mmol/L Anion Gap 13 mmol/L BUN 12 (7-17) mg/dL Creatinine 0.88 (0.52-1.04) mg/dL Est GFR (MDRD) Af Amer >60 (>60 ml/min/1.73 sqM) Est GFR (MDRD) Non-Af >60 (>60 ml/min/1.73 sqM) Glucose 107 H (74-99) mg/dL Calcium 9.7 (8.4-10.2) mg/dL Magnesium 2.1 (1.6-2.3) mg/dL Total Bilirubin 0.3 (0.2-1.3) mg/dL AST 30 (14-36) U/L ALT 44 (9-52) U/L Alkaline Phosphatase 102 (38-126) U/L Total Creatine Kinase 45 (30-135) U/L CK-MB (CK-2) 0.4 (0.0-2.4) ng/mL CK-MB (CK-2) Rel Index 0.9 Total Protein 6.8 (6.3-8.2) g/dL Albumin 4.1 (3.5-5.0) g/dL Lipase 129 (23-300) U/L 05/10/17 Range/Units 20:22 WBC (3.8-10.6) k/uL RBC (3.80-5.40) m/uL Hgb (11.4-16.0) gm/dL Hct (34.0-46.0) % MCV (80.0-100.0) fL MCH (25.0-35.0) pg MCHC (31.0-37.0) g/dL RDW (11.5-15.5) % Plt Count (150-450) k/uL Neutrophils % % Lymphocytes % % Monocytes % % Eosinophils % % Basophils % % Neutrophils # (1.3-7.7) k/uL Lymphocytes # (1.0-4.8) k/uL Monocytes # (0-1.0) k/uL Eosinophils # (0-0.7) k/uL Basophils # (0-0.2) k/uL PT 9.9 (9.0-12.0) sec INR 1.0 (<1.2) APTT 25.6 (22.0-30.0) sec Sodium (137-145) mmol/L Potassium (3.5-5.1) mmol/L Chloride (98-107) mmol/L Carbon Dioxide (22-30) mmol/L Anion Gap mmol/L BUN (7-17) mg/dL Creatinine (0.52-1.04) mg/dL Est GFR (MDRD) Af Amer (>60 ml/min/1.73 sqM) Est GFR (MDRD) Non-Af (>60 ml/min/1.73 sqM) Glucose (74-99) mg/dL Calcium (8.4-10.2) mg/dL Magnesium (1.6-2.3) mg/dL Total Bilirubin (0.2-1.3) mg/dL AST (14-36) U/L ALT (9-52) U/L Alkaline Phosphatase (38-126) U/L Total Creatine Kinase (30-135) U/L CK-MB (CK-2) (0.0-2.4) ng/mL CK-MB (CK-2) Rel Index Total Protein (6.3-8.2) g/dL Albumin (3.5-5.0) g/dL Lipase (23-300) U/L - Radiology Data Radiology results: report reviewed (Chest x-ray negative), image reviewed Critical Care Time Critical Care Time: Yes Total Critical Care Time: 31 Disposition Clinical Impression: Unstable angina, Chest pain, Palpitations, Tachycardia, Anxiety Disposition: ADMITTED IP TO THIS [facility] Condition: Fair Referrals: Manolo Hackett MD [Primary Care Provider] - 1-2 days
[2017-05-10 20:35] LABS: Basophils # (A) 0.1 k/uL (0-0.2); Basophils % (A) 1 %; Eosinophils # (A) 0.3 k/uL (0-0.7); Eosinophils % (A) 4 %; HCT 39.4 % (34.0-46.0); HGB 12.9 gm/dL (11.4-16.0); Lymphocytes # (A) 2.2 k/uL (1.0-4.8); Lymphocytes % (A) 32 %; MCH 29.1 pg (25.0-35.0); MCHC 32.9 g/dL (31.0-37.0); MCV 88.6 fL (80.0-100.0); Mean Platelet Volume 7.3; Monocytes # (A) 0.3 k/uL (0-1.0); Monocytes % (A) 5 %; Neutrophils # (A) 4.1 k/uL (1.3-7.7); Neutrophils % (A) 59 %; Platelet Count 269 k/uL (150-450); RBC 4.44 m/uL (3.80-5.40); RDW 12.6 % (11.5-15.5)
[2017-05-10 20:51] LABS: ALT 44 U/L (9-52); AST 30 U/L (14-36); Albumin 4.1 g/dL (3.5-5.0); Alkaline Phosphatase 102 U/L (38-126); Anion Gap 13 mmol/L; Blood Urea Nitrogen 12 mg/dL (7-17); Calcium 9.7 mg/dL (8.4-10.2); Carbon Dioxide 25 mmol/L (22-30); Chloride 105 mmol/L (98-107); Glucose 107 mg/dL (74-99); Lipase 129 U/L (23-300); Magnesium 2.1 mg/dL (1.6-2.3); Potassium 3.7 mmol/L (3.5-5.1); Sodium 143 mmol/L (137-145); Total Bilirubin 0.3 mg/dL (0.2-1.3); Total Protein 6.8 g/dL (6.3-8.2)
[2017-05-10 20:54] LABS: Partial Thromboplastin Time 25.6 sec (22.0-30.0); Prothrombin Time 9.9 sec (9.0-12.0)
--- NOTE | 2017-05-10 20:56 | XR ---
EXAMINATION: XR chest 2V DATE AND TIME: 05/10/2017 8:44 PM ORDERING PROVIDER: Ethan Jacobsen DO CLINICAL INDICATION: Chest Pain TECHNIQUE: PA and lateral COMPARISON: 03/16/2017 DESCRIPTION: EKG leads. The cardiac silhouette is not enlarged. The mediastinal and pleural silhouettes are unremarkable. The lungs are clear. The pleural spaces are negative. The skeletal structures are intact without focal findings. The soft tissues are unremarkable. IMPRESSION: NO ACUTE PROCESS.
[2017-05-10 21:10] LABS: Creatine Kinase MB 0.4 ng/mL (0.0-2.4)
[2017-05-10] MEDS ORDERED: LORazepam 2 MG/ML INJ IV STA (21:15)
[2017-05-10] MEDS ORDERED: LORazepam 2 MG/ML INJ IV PRN (21:15)
[2017-05-10 21:16] LABS: Troponin I 0.071 ng/mL (0.000-0.034)
[2017-05-10] MEDS ORDERED: ASPIRIN 81 MG PO STA (21:18)
[2017-05-10] MEDS ORDERED: HEPARIN SODIUM,PORCINE 5,000 UNIT/ML 1 ML VIAL IV ONE (21:18)
[2017-05-10] MEDS ORDERED: MORPHINE SULFATE 5 MG/ML SYRINGE IV PRN (21:18)
[2017-05-10] MEDS ORDERED: NITROGLYCERIN SL TABS 0.4 MG TAB SUBLINGUAL PRN (21:18)
[2017-05-10] MEDS ORDERED: HEPARIN SODIUM,PORCINE 5,000 UNIT/ML 1 ML VIAL IV PRN (21:18)
[2017-05-10] MEDS: HEPARIN SOD,PORK IN 0.45% NACL 25,000 UNIT in 0.45% NACL 1 500ML.BAG IV SCH (21:38)
[2017-05-10] MEDS ORDERED: Potassium Replacement Protocol 1 EACH MISC MISCELLANE PRN (23:29)
[2017-05-11] MEDS: HYDROcodone/APAP 7.5-325MG 1 EACH TAB PO PRN ×2 (02:43→15:50)
[2017-05-11 03:35] LABS: Mean Platelet Volume 7.9; Platelet Count 241 k/uL (150-450)
[2017-05-11 04:11] LABS: Cholesterol 122 mg/dL (<200); HDL Cholesterol 52 mg/dL (40-60); LDL Cholesterol,Calculated 53 mg/dL (0-99); Triglycerides 84 mg/dL (<150)
[2017-05-11 04:16] LABS: Creatine Kinase MB 0.6 ng/mL (0.0-2.4)
[2017-05-11 04:23] LABS: Troponin I 0.051 ng/mL (0.000-0.034)
[2017-05-11] MEDS: METOPROLOL TARTRATE 50 MG TAB PO SCH ×3 (08:00→21:06)
--- NOTE | 2017-05-11 08:35 | P.CRDCN ---
History of Present Illness Consult date: 05/11/17 Requesting physician: Emily Correa Consult reason: chest pain Chief complaint: Chest pain and palpitations History of present illness: This is a 61-year-old female with history of hypertension, hyperlipidemia, prior history of smoking, coronary artery disease who was recently in the hospital last week, underwent stent placement of the circumflex artery by Dr. Null. Patient was also found to have a 70-80% lesion in the proximal RCA, mid RCA 50-60%, proximal LAD appear to have mild disease, gives rise to the first diagonal branch which had severe disease in the range of 70% mid and distal LAD angiographically normal. Patient was discharged home from the hospital on Monday, she states that yesterday she was doing some heavy lifting, lifting heavy pails, shortly thereafter she developed a pain that radiated across her chest. She states that she also noticed her heart racing fast. She became hot all over but she was not diaphoretic, no overt shortness as she became more anxious, she states that the palpitations became worse. She called her son who brought her into the emergency room for further evaluation. Blood pressure on arrival here 190/90, heart rate in the 70s, but pressure this morning 146/80, heart rate in the 60s. EKG on arrival shows a normal sinus rhythm, with ST-T wave changes in leads V1 to V4, similar to prior EKGs last week. CBC normal, sodium 143, potassium 3.7, BUN 12, creatinine 0.8. Troponins 0.07, 0.05. At the time of my examination this morning, patient is currently chest pain-free. Past Medical History Past Medical History: Atrial Fibrillation, Chest Pain / Angina, GERD/Reflux, Hyperlipidemia, Hypertension, Osteoarthritis (OA) Additional Past Medical History / Comment(s): Low back pain, DDD, PILI SCIATIC NERVE PAIN, unsure of A-fib but states having rapid heart rate History of Any Multi-Drug Resistant Organisms: None Reported Past Surgical History: Heart Catheterization With Stent, Joint Replacement Additional Past Surgical History / Comment(s): Total L/R hip arthroplasty, ECTOPIC PREG - LT SALPINGECTOMY. Past Anesthesia/Blood Transfusion Reactions: No Reported Reaction Additional Past Anesthesia/Blood Transfusion Reaction / Comment(s): after hip replacement last time had very slow pulse Date of Last Stent Placement:: 05/05/17 Past Psychological History: Anxiety Additional Psychological History / Comment(s): Pt resides alone. Pt normally is independent with her ADls. She drives a car. Smoking Status: Former smoker Past Alcohol Use History: None Reported Additional Past Alcohol Use History / Comment(s): quit smoking 4 months ago, started smoking at age of 13, smoked 1ppd Past Drug Use History: None Reported - Past Family History Mother Family Medical History: Cancer Additional Family Medical History / Comment(s): Pancreatic with mets. Mother at age 68yrs. Father Family Medical History: Cancer Additional Family Medical History / Comment(s): Small cell lung carcinoma. Medications and Allergies Home Medications Medication Instructions Recorded Confirmed Type HYDROcodone/APAP 7.5-325MG [Rowe 0.5 tab PO DAILY PRN 10/18/16 05/10/17 History 7.5-325] ALPRAZolam [Xanax] 1 mg PO BID 05/04/17 05/10/17 History Aspirin 81 mg PO DAILY 05/04/17 05/10/17 History Clopidogrel [Plavix] 75 mg PO DAILY #90 tab 05/06/17 05/10/17 Rx Atorvastatin [Lipitor] 20 mg PO HS 05/10/17 05/10/17 History Allergies Allergy/AdvReac Type Severity Reaction Status Date / Time No Known Allergies Allergy Verified 05/10/17 20:50 Physical Exam Vitals: Vital Signs Temp Pulse Pulse Resp BP BP Pulse Ox 05/11/17 04:00 97.2 F L 67 18 146/83 97 05/11/17 00:22 68 18 05/11/17 00:00 97.0 F L 68 18 150/92 95 05/10/17 22:00 97.6 F 68 18 116/86 96 05/10/17 21:39 97.8 F 66 18 166/89 98 05/10/17 20:30 57 L 18 157/82 97 05/10/17 20:10 97.8 F 73 20 190/91 98 Intake and Output 05/10/17 05/11/17 05/11/17 22:59 06:59 14:59 Intake Total 36 288 Balance 36 288 Intake: IV 20 160 0.9 20 160 Intake, IV Titration 16 128 Amount Heparin Sod,Pork in 0.45% 16 128 NaCl 25,000 unit In 0.45 % NaCl 1 500ml.bag @ 12 UNITS/KG/HR 16.76 mls/hr IV .Q24H [facility] Rx#: [id number] Other: Voiding Method Toilet Toilet Weight 69.853 kg 75.5 kg PHYSICAL EXAMINATION: HEENT: Head is atraumatic, normocephalic. Pupils equal, round. Neck is supple. There is no elevated jugular venous pressure. HEART EXAMINATION: Heart S1, S2 normal. No murmur or gallop heard. CHEST EXAMINATION: Lungs are clear to auscultation and precussion. No chest wall tenderness is noted on palpation or with deep breathing. ABDOMEN: Soft, nontender. Bowel sounds are heard. No organomegaly noted. Right groin soft, no hematoma. EXTREMITIES: 2+ peripheral pulses with no evidence of peripheral edema and no calf tenderness noted. Patient does have a noted petechiae rash on her right hand and a quarter way up the arm. NEUROLOGIC patient is awake, alert and oriented -3. . Results 05/11/17 03:19 05/10/17 20:22 Cardiac Enzymes 05/10/17 05/10/17 05/11/17 Range/Units 20:22 20:22 03:19 AST 30 (14-36) U/L CK-MB (CK-2) 0.4 0.6 (0.0-2.4) ng/mL Troponin I 0.071 H* 0.051 H* (0.000-0.034) ng/mL Coagulation 05/10/17 05/11/17 Range/Units 20:22 03:19 PT 9.9 (9.0-12.0) sec APTT 25.6 50.5 H (22.0-30.0) sec Lipids 05/11/17 Range/Units 03:19 Triglycerides 84 (<150) mg/dL Cholesterol 122 (<200) mg/dL HDL Cholesterol 52 (40-60) mg/dL CBC 05/10/17 05/11/17 Range/Units 20:22 03:19 WBC 7.0 (3.8-10.6) k/uL RBC 4.44 (3.80-5.40) m/uL Hgb 12.9 (11.4-16.0) gm/dL Hct 39.4 (34.0-46.0) % Plt Count 269 241 (150-450) k/uL Comprehensive Metabolic Panel 05/10/17 Range/Units 20:22 Sodium 143 (137-145) mmol/L Potassium 3.7 (3.5-5.1) mmol/L Chloride 105 (98-107) mmol/L Carbon Dioxide 25 (22-30) mmol/L BUN 12 (7-17) mg/dL Creatinine 0.88 (0.52-1.04) mg/dL Glucose 107 H (74-99) mg/dL Calcium 9.7 (8.4-10.2) mg/dL AST 30 (14-36) U/L ALT 44 (9-52) U/L Alkaline Phosphatase 102 (38-126) U/L Total Protein 6.8 (6.3-8.2) g/dL Albumin 4.1 (3.5-5.0) g/dL Current Medications Generic Name Dose Route Start Last Admin Trade Name Freq PRN Reason Stop Dose Admin Hydrocodone Bitart/Acetaminophen 0.5 each 05/10/17 23:27 05/11/17 02:43 Rowe 7.5-325 PO 0.5 each DAILY PRN Administration Pain Alprazolam 1 mg 05/11/17 09:00 Xanax PO BID [facility] Aspirin 325 mg 05/11/17 09:00 Aspirin PO DAILY [facility] Atorvastatin Calcium 80 mg 05/11/17 09:00 Lipitor PO DAILY [facility] Heparin Sodium (Porcine) 0 unit 05/10/17 21:18 Heparin IV Q6HR PRN Low PTT Protocol Heparin Sodium/Sodium Chloride 500 mls @ 16.76 mls/hr 05/10/17 21:30 21:38 25,000 unit/ Sodium Chloride IV 12 units/kg/hr .Q24H DORIS 16.76 mls/hr Protocol Administration 12 UNITS/KG/HR Lorazepam 1 mg 05/10/17 21:15 Ativan IV Q4HR PRN Anxiety Metoprolol Tartrate 50 mg 05/11/17 09:00 Lopressor PO BID [facility] Miscellaneous Information 1 each 05/10/17 23:29 Potassium Per Protocol MISCELLANE DAILY PRN Per Protocol Protocol Morphine Sulfate 4 mg 05/10/17 21:18 Morphine Sulfate IV Q5M PRN Chest Pain Nitroglycerin 0.4 mg 05/10/17 21:18 Nitrostat SUBLINGUAL Q5M PRN Chest Pain Intake and Output 05/10/17 05/11/17 05/11/17 22:59 06:59 14:59 Intake Total 36 288 Balance 36 288 Intake: IV 20 160 0.9 20 160 Intake, IV Titration 16 128 Amount Heparin Sod,Pork in 0.45% 16 128 NaCl 25,000 unit In 0.45 % NaCl 1 500ml.bag @ 12 UNITS/KG/HR 16.76 mls/hr IV .Q24H [facility] Rx#: [id number] Other: Voiding Method Toilet Toilet Weight 69.853 kg 75.5 kg 05/11/17 03:19 05/10/17 20:22 EKG Interpretations (text) EKG shows normal sinus rhythm with ST-T wave changes in the anterior leads, similar to prior EKGs Assessment and Plan Assessment: Assessment and plan #1 chest discomfort, with associated palpitations in a patient with known coronary artery disease. Patient recently underwent stenting of the circumflex on Monday, she is noted to also have a tight lesion in the RCA for which Dr. Null was going to bring her back to do a staged angioplasty. EKG shows normal sinus rhythm with ST-T wave changes in the anterior leads, unchanged from previous. Troponins 0.07, 0.05. #2 coronary artery disease with recent circumflex stenting, significant disease in the RCA, disease also noted in the diagonal. #3 hypertension #4 hyperlipidemia #5 petechiae rash in the right hand and lower arm Plan We will continue the patient on aspirin, Lipitor, IV heparin, metoprolol 50 mg one tablet by mouth twice a day, resume her Plavix. Patient has been seen in consultation by Dr. Hodgson and advised to undergo cardiac catheterization, this will be performed tomorrow by Dr. Null. Further recommendations to follow. DNP note has been reviewed, I agree with a documented findings and plan of care. Patient was seen and examined.
[2017-05-11] MEDS: ALPRAZolam 0.5 MG TAB PO SCH ×2 (08:41→23:52)
[2017-05-11] MEDS: ASPIRIN 325 MG TAB PO SCH (08:42)
[2017-05-11] MEDS: ATORVASTATIN 80 MG TAB PO SCH (08:42)
[2017-05-11] MEDS ORDERED: ASPIRIN 325 MG TAB PO STA (08:47)
[2017-05-11] MEDS ORDERED: ALPRAZolam 0.25 MG TAB PO PRN (08:47)
[2017-05-11] MEDS ORDERED: SODIUM CHLORIDE 0.9% 1,000 ML in EMPTY BAG 1 BAG IV ONE (08:47)
[2017-05-11] MEDS ORDERED: ALPRAZolam 0.5 MG TAB PO PRN (08:47)
[2017-05-11] MEDS ORDERED: NITROGLYCERIN SL TABS 0.4 MG TAB SUBLINGUAL PRN (08:47)
--- NOTE | 2017-05-11 08:50 | P.PN ---
Progress Note - Text This is an addendum to the dictated cardiology consultation. The patient presented to the hospital last week and underwent cardiac catheterization and was found to have critical stenosis involving the distal left circumflex and the mid right coronary artery. She underwent stenting of the left circumflex. She presents again to the hospital symptoms of chest discomfort with dyspnea, dizziness and palpitations. Her EKG shows no acute changes with T-wave inversion anteriorly that was noted in the past. The plan was to proceed with staged angioplasty and stenting of the right coronary artery at the later time. Her physical examination shows no lung congestion and no significant edema. She is in sinus mechanism. Her lab data shows minimal elevation of the troponin most likely related to her recent procedure. The patient presents with chest pain that could be anginal and interview of her known anatomy I have recommended to proceed with repeat cardiac catheterization and possible stenting of her right coronary artery. I doubt she has an acute closure of the left circumflex stent in view of the absence of significant enzyme changes and EKG changes. I have discussed those findings and recommendations with the patient. The patient will undergo the procedure by Dr. Granados. Thank you for this consult we will follow with you.
[2017-05-11 10:15] LABS: Creatine Kinase MB 0.5 ng/mL (0.0-2.4)
[2017-05-11 10:24] LABS: Troponin I 0.043 ng/mL (0.000-0.034)
[2017-05-11] MEDS: CLOPIDOGREL 75 MG TAB PO SCH (13:50)
[2017-05-11] MEDS: amLODIPine 5 MG TAB PO SCH (13:51)
--- NOTE | 2017-05-11 17:43 | HP ---
HISTORY AND PHYSICAL DATE OF ADMISSION: 05/10/2017 PRESENTING COMPLAINT: Chest pain. HISTORY OF PRESENTING COMPLAINT: This is a 61 -year-old patient of Dr. Hackett with rather extensive medical history. The patient on May 05, 2017, underwent stent to the circumflex by Dr. Granados. Chronic stable medical conditions include GERD, hypertension, hyperlipidemia, osteoarthritis. Patient yesterday felt as if there was a baseball bat across the chest and also felt heart racing. There was no dizziness. No lightheadedness. Just felt a bit off. The whole symptomatology lasted for few hours and she had decided to come to the ER. The patient often times gets some blood when she wipes herself, but yesterday she had about 6 episodes where she had some blood when she was wiping herself and even without that this was fresh blood. REVIEW OF SYSTEMS: Constitutional: Tired. HEENT none. Respiratory none. Cardiovascular as above. Gastrointestinal heartburn. Genitourinary none. Musculoskeletal: Arthritic pain in joints. Dermatological and hematologic, lymphatic none. Psychiatry some anxiety. Neurological none. PAST MEDICAL HISTORY: History of atrial fibrillation, GERD, hypertension, hyperlipidemia, osteoarthritis, coronary artery disease with stent, low back pain with bilateral sciatic nerve pain. History of atrial fibrillation is doubtful. PAST SURGICAL HISTORY: Cardiac cath with stent, last one on May 05, 2017, joint replacement, total left hip arthroplasty, ectopic , left salpingectomy. PSYCH HISTORY: Anxiety. SOCIAL HISTORY: Lives by herself. Smoked up a pack a day close to 50 years, stopped 4 months ago. Alcohol none. FAMILY HISTORY: Mother having pancreatic cancer with metastasis. HOME MEDICATIONS: 1. Lipitor 20 mg q.h.s. 2. [place] 7.5/0.5 daily p.r.n. 3. Plavix 75 mg a day. 4. Aspirin 81 mg daily. 5. Xanax 0.1 mg p.o. b.i.d. ALLERGIES: None. PHYSICAL EXAMINATION: Temperature 97.1, pulse 60, respiratory 18, blood pressure 164/99, pulse ox 96% on room. General appearance: Average built, sitting up, not in distress. EYES: Pupils equal, conjunctivae normal. HEENT: Oral cavity normal. Neck JVD not raised. Mass not palpable. Respiratory effort lungs fair entry. Cardiovascular first and second sounds no edema. ABDOMEN: Soft, nontender. Liver and spleen not palpable. Lymphatics: No lymph nodes palpable in the neck and axilla. Psychiatry alert and oriented times three. Mood and affect normal. Neurological: Pupils equal. Cranial nerves grossly intact. Power and sensation grossly intact. INVESTIGATIONS: White count 7, hemoglobin 12.9, potassium 3.7, BUN and creatinine is normal. Troponin 0.071, 0.051, 0.0434. EKG normal sinus rhythm with some T-waves in the anterior leads. Additionally, the patient's cardiac cath report showed proximal RCA has a long tubular lesion 70-80% and mid RCA has a 50-60% lesion. Left main was short but normal. Left circumflex mid left was 50%. The left circumflex distally has a long tubular lesion about 99% and LAD the 1st diagonal branch lesion was 70%. Circumflex was stented. ASSESSMENT: 1. Possible unstable angina cannot rule out an acute [place] in a patient with known at least 2 vessel disease with stent to the circumflex on May 05. The patient's troponins are coming down. This could well be from the procedure from the . 2. Acute on chronic lower gastrointestinal bleed, appears to be more hemorrhoidal in nature, but the patient is on dual antiplatelet agents and had 6 episodes of these yesterday. 3. IV heparin monitoring. 4. Chronic gastroesophageal reflux disease. 5. Essential hypertension. 6. Hyperlipidemia. 7. Primary osteoarthritis in multiple joints. 8. Anxiety, not otherwise specified. PLAN: Cardiology was consulted, Dr. Hodgson and they may reconsider doing another cardiac catheterization. Will let the make the final decision about the same. We will also consult Gastroenterology Dr. Styles and will put the patient on Protonix. Care was discussed with the patient. Copy to Dr. Hackett. MMODL / IJN: [id number] /
[2017-05-11] MEDS: PANTOPRAZOLE 40 MG TABLET PO SCH (18:56)
[2017-05-11] MEDS ORDERED: MORPHINE SULFATE 2 MG/ML SYRINGE IV PRN (19:15)
[2017-05-11 20:09] LABS: HCT 38.7 % (34.0-46.0); MCH 29.6 pg (25.0-35.0); MCHC 33.5 g/dL (31.0-37.0); MCV 88.4 fL (80.0-100.0); Mean Platelet Volume 7.3; Platelet Count 265 k/uL (150-450); RBC 4.37 m/uL (3.80-5.40); RDW 12.6 % (11.5-15.5); WBC 5.7 k/uL (3.8-10.6)
[2017-05-11] MEDS: HEPARIN SOD,PORK IN 0.45% NACL 25,000 UNIT in 0.45% NACL 1 500ML.BAG IV SCH (23:52)
[2017-05-12] MEDS: HEPARIN SOD,PORK IN 0.45% NACL 25,000 UNIT in 0.45% NACL 1 500ML.BAG IV SCH (02:49)
[2017-05-12] MEDS ORDERED: ASPIRIN 325 MG TAB PO ONE (06:00)
[2017-05-12] MEDS ORDERED: ATORVASTATIN 80 MG TAB PO ONE (06:00)
[2017-05-12 06:13] LABS: Mean Platelet Volume 7.8; Platelet Count 250 k/uL (150-450)
[2017-05-12] MEDS: PANTOPRAZOLE 40 MG TABLET PO SCH ×2 (07:28→08:17)
[2017-05-12] MEDS: CLOPIDOGREL 75 MG TAB PO SCH (08:16)
[2017-05-12] MEDS: amLODIPine 5 MG TAB PO SCH (08:17)
[2017-05-12] MEDS: ASPIRIN 325 MG TAB PO SCH (08:17)
[2017-05-12] MEDS: ATORVASTATIN 80 MG TAB PO SCH (08:17)
[2017-05-12] MEDS: ALPRAZolam 0.5 MG TAB PO SCH ×2 (08:19→20:06)
[2017-05-12] MEDS: METOPROLOL TARTRATE 50 MG TAB PO SCH ×2 (08:20→20:06)
[2017-05-12] MEDS ORDERED: IV FLUID CONTINUATION 600 ML IV ONE (09:36)
[2017-05-12] MEDS ORDERED: MIDAZOLAM 2 MG/2 ML VIAL ONE (09:47)
[2017-05-12] MEDS ORDERED: LIDOCAINE 2% INJ 20 MG/ML (20 ML MDV) ONE (09:47)
[2017-05-12] MEDS ORDERED: MIDAZOLAM 2 MG/2 ML VIAL IV ONE (09:53)
[2017-05-12] MEDS: LIDOCAINE 2% INJ 20 MG/ML SQ ONE ×2 (09:54→10:25)
[2017-05-12] MEDS ORDERED: BIVALIRUDIN 250 MG VIAL IV ONE (09:58)
[2017-05-12] MEDS ORDERED: BIVALIRUDIN 250 MG in SODIUM CHLORIDE 0.9% 50 ML IV ONE (09:59)
[2017-05-12] MEDS: NITROGLYCERIN 1000MCG/10ML SYRINGE INTRACORON ONE ×3 (10:00→10:12)
[2017-05-12] MEDS ORDERED: CLOPIDOGREL 75 MG TAB ONE (10:20)
[2017-05-12] MEDS ORDERED: CLOPIDOGREL 75 MG TAB PO ONE (10:20)
[2017-05-12] MEDS ORDERED: HYDROmorphone 2 MG/ML 1 ML SYRINGE ONE (10:22)
[2017-05-12] MEDS ORDERED: HYDROmorphone 2 MG/ML 1 ML SYRINGE IVP ONE (10:23)
[2017-05-12] MEDS ORDERED: IOHEXOL 350 MG/ML 125ML BOTTLE INJ ONE (10:26)
[2017-05-12] MEDS ORDERED: ATROPINE SULFATE 0.1 MG/ML 10ML SYRINGE IV PRN (10:31)
[2017-05-12] MEDS ORDERED: NITROGLYCERIN SL TABS 0.4 MG TAB SUBLINGUAL PRN (10:31)
[2017-05-12] MEDS ORDERED: RX INFO: IV CONTRAST WAS GIVEN 1 EACH MISC MISCELLANE PRN (10:31)
[2017-05-12] MEDS ORDERED: MAG HYDROX/AL HYDROX/SIMETH 30 ML CUP PO PRN (10:31)
[2017-05-12] MEDS ORDERED: SODIUM CHLORIDE 0.9% 1,000 ML IV SCH (10:45)
--- NOTE | 2017-05-12 11:07 | P.PN ---
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
--- NOTE | 2017-05-12 11:08 | CC ---
CARDIAC CATHETERIZATION REPORT DATE OF SERVICE: 05/12/2017. PERFORMING PHYSICIAN: Rhett Granados MD, automotive parts counter associate. PROCEDURE PERFORMED: 1. Selective right and left coronary angiogram. 2. Successful stenting of the proximal and mid RCA using 3.0 x 38 mm Xience BRENNAN with good angiographic results. INDICATION: This is a pleasant 61-year-old female patient who is known to have coronary artery disease and prior stenting of the left circumflex and also known to have severe disease involving the RCA was scheduled to undergo stenting of the RCA as an outpatient presented to the hospital complaining of chest discomfort so a heart catheterization was recommended. APPROACH: Right common femoral artery. COMPLICATION: None. LEVEL OF SEDATION: Moderate with sedation length of 30 minutes. PROCEDURE DESCRIPTION: After obtaining informed consent, the patient was brought to the cardiac laborer carpentry dock. The right common femoral artery was cannulated using micropuncture technique, the micropuncture wire passed easily then I placed a 6-Cameroonian sheath in the right common femoral artery. At that point, anticoagulation was initiated using Angiomax. Subsequently I did engage the right coronary artery using JR3.5 guiding catheter. A whisper wire was used to wire the right coronary artery. Subsequently I did PTCA ballooning initially using 2.5 x 20 mm balloon where the balloon was inflated under 14 atmospheres for 20 seconds. After that, I did deploy a 3.0 x mm Xience drug-eluting stent where the stent was positioned under fluoroscopy guidance and deployed under 10 atmospheres for 20 seconds. The following angiogram showed good angiographic results. After that I did selective left coronary angiogram using JL3.5 guiding catheter. SELECTIVE CORONARY ANGIOGRAM: 1. The right coronary artery is a large caliber vessel and it is a dominant vessel. The proximal to mid RCA had a long tubular lesion in the range of 80% to 90%. The mid to distal RCA has another lesion appeared to be in the range of 50% to 60%. The RCA distally appeared to be angiographically normal. It bifurcates into PDA and PLV branches, both are angiographically normal. 2. The left main is angiographically normal. It bifurcates into the left circumflex and left anterior descending artery. 3. The left circumflex is a large caliber vessel. The proximal circumflex appeared to be angiographically normal. The mid circumflex has a lesion eccentric appeared to be in the range of 60%. The left circumflex distally is stented and the stent is patent. 4. The left anterior descending artery; the proximal LAD appeared to have mild disease only and the first diagonal branch which is a moderate caliber vessel with severe disease in the proximal portion. The mid LAD appeared to be angiographically normal beside tortuous and gives rise into a second diagonal branch which is an intermediate caliber vessel with disease about 60% to 70%. CONCLUSION: 1. Successful stenting of the right coronary artery using 3.0 x 38 mm Xience BRENNAN with good angiographic results. 2. Patent stent in the distal left circumflex. 3. Intermediate to severe disease involving the mid left circumflex, seems to be unchanged compared to before. 4. Severe disease involving the first diagonal branch of the LAD, which is . POSTPROCEDURE MANAGEMENT: Maximize medical treatment and followup with the patient. MMWANG / ARPIT: [id number] /
--- NOTE | 2017-05-12 11:08 | LTR ---
May 12, 2017 Re: James Adorno. Dear Manolo: Ms. James Adorno presented to the hospital with chest discomfort and underwent a heart catheterization which revealed patent stent in the left circumflex. She underwent successful stenting of the right coronary artery with good angiographic results and without any complication. She was scheduled to undergo stenting of the RCA as an outpatient. Thank you for allowing me to participate in her care and please do not hesitate to call if you have any question or concern. Sincerely, MD DIMITRI Kenyon / ARPIT: [id number] /
--- NOTE | 2017-05-12 13:01 | P.CONS ---
History of Present Illness - Reason for Consult Consult date: 05/12/17 rectal bleeding Requesting physician: Isaiah Johnson - History of Present Illness 61 [address] female patient Dr. Hackett [facility] CAD recent circumflex stenting admitted with acute chest pain EKG changes elevated troponin underwent cardiac cath with stent to RCA. Consult requested for painless rectal bleeding. Patient states prior to admission she's been having some intermittent bright red blood per rectum on and off for "years" that is painless and only present on tissue not mixed in her stool. Last colonoscopy several years ago to her memory was normal. Denies weight loss abdominal pain hematemesis gross hematochezia or melena. No history of peptic ulcer disease or GI bleeding. Hemoglobin 12.9-13. Platelet 269. INR 1.0. BUN 12. Creatinine 0.8. Home medications include Plavix and baby aspirin. Review of Systems Constitutional: Denies fever, chills, sweats, weight gain, or loss. HEENT: Negative for migraines, blurred vision or loss, earaches, drainage, tinnitus, oral mucosal lesions, dysphagia, or odynophagia. CARDIAC: CAD with PCI stent. A. fib. Hyperlipidemia. Hypertension. Negative for chest pain, arrhythmias, or palpitation. RESPIRATORY: Negative for shortness of breath, hemoptysis, cough, or sputum production. GI: See HPI for pertinent findings. : Negative for hematuria, urgency, frequency, polyuria, or dysuria. GYNc: Denies possibility of . Negative vaginal discharge. MUSCULOSKELETAL: Negative for muscle aches, swelling, arthritis, and arthralgias. NEUROLOGIC: Negative for stroke or TIA. ENDOCRINE: Negative for thyroid problems. SKIN: Negative for rash or itching. PSYCHIATRIC: Anxiety. Past Medical History Past Medical History: Atrial Fibrillation, Chest Pain / Angina, GERD/Reflux, Hyperlipidemia, Hypertension, Osteoarthritis (OA) Additional Past Medical History / Comment(s): Low back pain, DDD, PILI SCIATIC NERVE PAIN, unsure of A-fib but states having rapid heart rate History of Any Multi-Drug Resistant Organisms: None Reported Past Surgical History: Heart Catheterization With Stent, Joint Replacement Additional Past Surgical History / Comment(s): Total L/R hip arthroplasty, ECTOPIC PREG - LT SALPINGECTOMY. Past Anesthesia/Blood Transfusion Reactions: No Reported Reaction Additional Past Anesthesia/Blood Transfusion Reaction / Comm: after hip replacement last time had very slow pulse Date of Last Stent Placement:: 05/05/17 Past Psychological History: Anxiety Additional Psychological History / Comment(s): Pt resides alone. Pt normally is independent with her ADls. She drives a car. Smoking Status: Former smoker Past Alcohol Use History: None Reported Additional Past Alcohol Use History / Comment(s): quit smoking 4 months ago, started smoking at age of 13, smoked 1ppd Past Drug Use History: None Reported - Past Family History Mother Family Medical History: Cancer Additional Family Medical History / Comment(s): Pancreatic with mets. Mother at age 68yrs. Father Family Medical History: Cancer Additional Family Medical History / Comment(s): Small cell lung carcinoma. Medications and Allergies Home Medications Medication Instructions Recorded Confirmed Type HYDROcodone/APAP 7.5-325MG [[place] 0.5 tab PO DAILY PRN 10/18/16 05/10/17 History 7.5-325] ALPRAZolam [Xanax] 1 mg PO BID 05/04/17 05/10/17 History Aspirin 81 mg PO DAILY 05/04/17 05/10/17 History Clopidogrel [Plavix] 75 mg PO DAILY #90 tab 05/06/17 05/10/17 Rx Atorvastatin [Lipitor] 20 mg PO HS 05/10/17 05/10/17 History Allergies Allergy/AdvReac Type Severity Reaction Status Date / Time No Known Allergies Allergy Verified 05/10/17 20:50 Physical Exam Vitals: Vital Signs Temp Pulse Resp BP Pulse Ox 05/12/17 08:00 96.8 F L 16 123/67 94 L 05/12/17 07:50 96 05/12/17 03:16 97.2 F L 57 L 16 148/87 96 05/11/17 23:49 55 L 18 107/68 93 L 05/11/17 20:36 95 05/11/17 19:51 97.9 F 72 18 130/81 99 05/11/17 16:00 96.7 F L 66 18 126/57 96 Intake and Output 05/11/17 05/12/17 05/12/17 22:59 06:59 14:59 Intake Total 108 489.113 177.66 Balance 108 489.113 177.66 Intake: IV 108 177.66 0.9 60 Heparin Sod,Pork in 0.45% 48 NaCl 25,000 unit In 0.45 % NaCl 1 500ml.bag @ 12 UNITS/KG/HR 16.76 mls/hr IV .Q24H DORIS Rx#: [id number] Intake, IV Titration 489.113 Amount Heparin Sod,Pork in 0.45% 489.113 NaCl 25,000 unit In 0.45 % NaCl 1 500ml.bag @ 12 UNITS/KG/HR 16.76 mls/hr IV .Q24H DORIS Rx#: [id number] Other: Voiding Method Toilet Toilet # Voids 1 Weight 74.6 kg General appearance: The patient is alert, oriented, in no acute distress. HET: Head is normocephalic and atraumatic. Pupils are equal and reactive. Oropharynx is clear without lesions. Neck: Supple without lymphadenopathy. Trachea midline. Heart: S1 S2. Regular rate and rhythm. Lungs: No crackles or wheezes are heard. Abdomen: Soft, nontender, nondistended with bowel sounds. No peritoneal signs. No palpable organomegaly or masses. Extremities: Right dressing without bleeding. Normal skin color and turgor. No cyanosis, rash, ulceration, clubbing, or edema. Radial and pedal pulses are 2/4 bilaterally. Neurological: No focal deficits. Strength and sensation are grossly intact. 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 Results CBC & Chem 7: 05/12/17 05:40 05/10/17 20:22 Labs: Abnormal Lab Results - Last 24 Hours (Table) 05/12/17 Range/Units 05:40 APTT 52.7 H (22.0-30.0) sec Assessment and Plan (1) Rectal bleeding Narrative/Plan: Suspect perirectal hemorrhoidal in nature however colonic pathology cannot be entirely excluded. Current Visit: Yes Status: Acute Code(s): K62.5 - HEMORRHAGE OF ANUS AND RECTUM SNOMED Code(s): 92668784 (2) Chest pain Narrative/Plan: History of CAD. Status post heart cath with PCI stent RCA, recent stent circumflex one month ago Current Visit: Yes Status: Acute Code(s): R07.9 - CHEST PAIN, UNSPECIFIED SNOMED Code(s): 79626276 Plan: 1. Patient was advised repeat colonoscopy in the outpatient setting after recovering from her heart catheterization. At this time she is declining colonoscopy but is open to discussion in the outpatient setting. She would like to discuss this with her primary Dr. Hackett. Patient can follow-up in the GI office in 3-4 weeks for reevaluation and discussion of outpatient colonoscopy. Thank you for this kind referral and the opportunity to participate in the care of your patient. This consultation was discussed with Dr. Styles. The impression and plan of care have been directed as dictated.
[2017-05-12] MEDS: HYDROcodone/APAP 7.5-325MG 1 EACH TAB PO PRN (14:09)
[2017-05-12 15:08] VITALS: BMI 28.2
--- NOTE | 2017-05-12 17:31 | P.PN ---
Progress Note - Text Progress Note Date: 05/12/17 DATE OF SERVICE: 05/12/2017 PRESENTING COMPLAINT: Chest pain HISTORY OF PRESENT ILLNESS: 61-year-old female with prior history of stents presented to the emergency department with chest pressure and racing heart, no dizziness no lightheadedness to spelled it off constellation of symptoms lasted about an hour and prompted her to come in. Admitted for chest pain INTERVAL HISTORY: 05/12/2017: Patient lying flat status post stent to the RCA, right groin approach. Appears comfortable, vital signs are stable, no episodes of chest pain palpitations. No nausea, no vomiting. REVIEW OF SYSTEMS: Done for constitutional ,cardiovascular, GI, pulmonary with relevant findings as above. CURRENT MEDICATIONS [place], Maalox, Xanax, Norvasc, aspirin, Lipitor, Plavix, Ativan, Lopressor, Protonix, Ambien, Nitrostat. PHYSICAL EXAM VITAL SIGNS: Temperature 96.8, pulse 57, respiratory rate 16, blood pressure 123/67, oxygen saturation 94% GENERAL APPEARANCE: Lying in bed, not in distress. HEENT: Normocephalic, Pupils equal. Conjunctiva normal. JVD not raised. Mass not palpable.: RESPIRATORY: Respiratory effort normal. Lungs fair air entry CARDIOVASCULAR: First and second sounds normal. No edema. ABDOMEN: Soft. Liver and spleen not palpable. No tenderness. No mass palpable. PSYCHIATRY: Alert and oriented x3. Mood and affect normal. INVESTIGATIONS: CBC grossly unremarkable ASSESSMENT: -Unstable angina with possible acute OR in a patient with known two-vessel disease and stent to the circumflex on May 05. Troponins downtrending may well be from the procedure on the -Acute on chronic lower gastrointestinal bleed appears to be more hemorrhoidal in nature but patient is on dual antiplatelets and has had 6 episodes of these yesterday. -IV heparin monitoring. -Chronic gastroesophageal reflux disease. -Essential hypertension. -Hyperlipidemia. -Primary [place] arthritis in multiple joints. -Anxiety, not otherwise specified. PLAN: Cardiology took the patient for cardiac catheterization patient received a stent to the RCA, other stents were patent. GI recommends repeat colonoscopy in the outpatient setting after recovering from her heart catheterization, declining colonoscopy here at the hospital. Plan of care discussed with the patient the bedside we will follow closely. POTATO GRADER statement: Patient was seen and examined by nurse practitioner Corinna Magana and all elements of the case discussed with attending Dr. Johnson
[2017-05-12 18:07] LABS: Anion Gap 10 mmol/L; Blood Urea Nitrogen 11 mg/dL (7-17); Calcium 9.6 mg/dL (8.4-10.2); Carbon Dioxide 25 mmol/L (22-30); Chloride 107 mmol/L (98-107); Glucose 91 mg/dL (74-99); Sodium 142 mmol/L (137-145)
[2017-05-12] MEDS ORDERED: ZOLPIDEM 5 MG TAB PO PRN (21:00)
--- NOTE | 2017-05-12 22:35 | PN ---
PROGRESS NOTE DATE OF SERVICE: May 12, 2017 ATTENDING NOTE: The patient seen and examined by me. Discussed with my nurse practitioner [place]. Lying in bed, comfortable. No chest pain, short of breath, status post coronary intervention. PHYSICAL EXAMINATION: Temperature 96.7, pulse 60, blood pressure 120/71, pulse ox 95% on room air. Lungs are clear. Cardiovascular 1st and 2nd sounds normal. Potassium 4. ASSESSMENT: 1. Unstable angina with further coronary intervention by Dr. Granados. 2. Lower gastrointestinal bleed suspect to be hemorrhoidal for outpatient workup per Dr. Walter Styles. Care was discussed with the patient. Follow. MMODL / IJN: [id number] /
[2017-05-13] MEDS: HYDROcodone/APAP 7.5-325MG 1 EACH TAB PO PRN (04:11)
[2017-05-13 07:02] LABS: Platelet Count 253 k/uL (150-450)
[2017-05-13] MEDS: amLODIPine 5 MG TAB PO SCH (08:49)
[2017-05-13] MEDS: ATORVASTATIN 80 MG TAB PO SCH (08:50)
[2017-05-13] MEDS: METOPROLOL TARTRATE 50 MG TAB PO SCH (08:50)
[2017-05-13] MEDS: ALPRAZolam 0.5 MG TAB PO SCH (08:52)
[2017-05-13] MEDS ORDERED: CLOPIDOGREL 75 MG TAB PO SCH (09:00)
[2017-05-13] MEDS ORDERED: ASPIRIN 325 MG TAB PO SCH (09:00)
[2017-05-13 09:25] VITALS: RESP 17
--- NOTE | 2017-05-13 14:09 | PN ---
PROGRESS NOTE The patient is a 61-year-old pleasant white female admitted to the hospital with chest pain and she underwent cardiac catheterization by Dr. Granados yesterday with stent placement. While during this hospitalization, she was complaining of rectal bleeding. She had about 4 episodes of bleeding 2 days ago and yesterday had 1 episode of bleeding. This morning she did not have any bowel movements. She reports no abdominal pain. Reports no nausea, vomiting. The patient states that she has been having intermittent rectal bleeding of and off for the last one year duration, usually happen in spurts. On an average, she has about 3 or 4 episodes a month. She did mention she had a colonoscopy about 4 or 5 years ago and according to the patient, was normal. She denies any significant change in her bowel habits recently. No constipation. She denies any mucus in the stool. No abdominal discomfort. No family history of colorectal neoplasia. PHYSICAL EXAMINATION: On examination, she appears comfortable, in no apparent distress. Vital signs are stable. Blood pressure is 101/69, pulse rate 56, temperature 97.3. HEENT examination unremarkable. Conjunctivae pink. Sclerae anicteric. Oral cavity no lesions. Neck no jugular venous distention or lymph node enlargement. Chest was clear to auscultation. Heart regular rate and rhythm. Abdomen is soft. Bowel sounds are positive. No organomegaly. Extremities: No pedal edema. Skin no rashes. Neurologic: Alert and oriented x3. No focal deficits. LAB: From yesterday hemoglobin was 13, WBC 5.7, platelets are 265. IMPRESSION: 1. Coronary artery disease, status post angioplasty with stent placement by Dr. Granados yesterday. Presently on aspirin and Plavix. 2. Rectal bleeding, possibly related to hemorrhoidal bleeding. The patient has been having bleeding on and off for the last 1 year duration, but much more in the last 3 days, usually happens following a bowel movement with bright red blood in nature and often painless and most likely hemorrhoidal in etiology. Hemoglobin is stable currently. Presently on aspirin and Plavix for coronary artery disease. RECOMMENDATIONS: I suggest to the patient that we will plan on a colonoscopy on outpatient basis probably in the next few months if she continues to have ongoing bleeding. In the meantime, I did suggest that she take fiber supplements on a regular basis and avoid straining and constipation. For now she can continue with aspirin and Plavix given the history of coronary artery disease and recent stent placement. At this time, we will sign off. Please call us if needed. However, the patient was advised to follow up in the office in 3-4 weeks following discharge from the hospital. MMODL / IJN: [id number] /
--- NOTE | 2017-05-13 15:03 | PN ---
PROGRESS NOTE Mrs. Adorno is a 61-year-old female with history of coronary artery disease who underwent stenting of her right coronary artery yesterday by Dr. Granados. She is feeling well today. She is denying any chest pain. Her breathing has been stable. She denies any dizziness or palpitation. She continues to be on aspirin once a day, Lipitor 80 mg daily, amlodipine 5 mg daily, metoprolol tartrate 50 mg twice a day, and Protonix. PHYSICAL EXAMINATION: Blood pressure 119/69 with the heart rate in the 60s. LUNGS: Clear. HEART: Regular rate and rhythm. S1, S2. No S3. No rub. ABDOMEN: Soft, nontender. RIGHT GROIN: No hematoma. Her creatinine 1.01 and her GFR is above 60. IMPRESSION: 1. Status post stenting of the right coronary artery. 2. Hypertension. 3. Hyperlipidemia. RECOMMENDATION: Patient should be able to be discharged home today and followed as an outpatient with Dr. Granados. MMCHEL / RENEN: [id number] /
[2017-05-13 15:29] VITALS: BP 119/81; PULSE 72
[2017-05-13 15:40] VITALS: TEMP 97.2
--- NOTE | 2017-05-13 21:09 | DS ---
DISCHARGE SUMMARY DATE OF ADMISSION: 05/10/2017. DATE OF DISCHARGE: 05/13/2017 FINAL DIAGNOSES: 1. Unstable angina/possible acute non-Q-wave myocardial infarction. 2. Acute hemorrhoidal bleeding. 3. IV heparin monitoring. 4. Chronic gastroesophageal reflux disease. 5. Essential hypertension. 6. Hyperlipidemia. 7. Primary osteoarthritis of multiple joints. 8. Anxiety, not otherwise specified. 9. CONSULTATION: Dr. Walter Styles from GI, Dr. Hodgson from cardiology. HOSPITAL COURSE: This patient presented with what may be an NC, cardiac catheterization was done. Did get a stent to the RCA. More details in his notes. At the time of discharge, up and about. No further cardiac symptoms. EXAMINATION: Blood pressure 109/81. Lungs are clear. CARDIOVASCULAR: First and second sounds normal. Care was discussed with the patient. DISCHARGE MEDICATIONS: 1. [place] 7.5, 1/2 a tablet daily p.r.n. 2. Xanax 1 mg p.o. b.i.d. 3. Aspirin 81 mg p.o. daily. 4. Plavix 75 mg p.o. daily. 5. Lipitor 80 mg p.o. daily. 6. Lopressor 50 mg p.o. b.i.d. 7. Omeprazole 40 mg p.o. daily. 8. Norvasc 5 mg p.o. daily. Follow up with Dr. Hackett in 3 days. Follow up with Dr. Granados on 05/18/2017. Follow up with Dr. Walter Styles in 3 weeks. MMODL / IJN: [id number] /
== END 2017-05-13 17:23 | disposition home or self-care (01) | DRG 247 ==
LOC: EC 20:06 → 6SEL 21:19
PROVIDERS: ADMIT Hospitalist; ATTEND Hospitalist
DX: I21.4 Non-ST elevation (NSTEMI) myocardial infarction (principal); I48.91 Unspecified atrial fibrillation; E78.5 Hyperlipidemia, unspecified; I25.110 Atherosclerotic heart disease of native coronary artery with unstable angina pectoris; F41.9 Anxiety disorder, unspecified; I10 Essential (primary) hypertension; K21.9 Gastro-esophageal reflux disease without esophagitis; K64.9 Unspecified hemorrhoids; M19.91 Primary osteoarthritis, unspecified site; Z79.02 Long term (current) use of antithrombotics/antiplatelets; Z79.82 Long term (current) use of aspirin; Z79.899 Other long term (current) drug therapy; Z80.0 Family history of malignant neoplasm of digestive organs; Z80.1 Family history of malignant neoplasm of trachea, bronchus and lung; Z87.891 Personal history of nicotine dependence; Z95.5 Presence of coronary angioplasty implant and graft; Z96.643 Presence of artificial hip joint, bilateral
CPT/HCPCS: 36415; 71046; 80048; 80053; 80061; 82272; 82550; 82553; 82565; 83690; 83735; 84484; 85025; 85027; 85049; 85610; 85730; 93005; 93454; 94760; 96365; 96375; 96376; 99291

== ENCOUNTER 2017-05-19 20:53 | Inpatient (IN) | payer MEDICARE ==
--- NOTE | 2017-05-19 21:32 | ED ---
General Adult HPI - General Chief complaint: Chest Pain Stated complaint: Chest pain Time Seen by Provider: 05/19/17 21:10 Source: patient, RN notes reviewed, old records reviewed Mode of arrival: ambulatory Limitations: no limitations - History of Present Illness Initial comments: 61-year-old female history of CAD status post stent. Most recently patient heart catheterization 2 weeks ago followed by one week ago. She received distended with both of these interventions. She presents with chest pain, nausea, and dyspnea. Symptoms began approximately 3 PM today which was 6 hours ago. Pain is been coming and going, present at rest. Described as central chest pressure. Pain does not radiate. Patient denies fever or chills. Denies cough. Denies abdominal pain or diarrhea. She's had several episodes of vomiting. - Related Data Home Medications Medication Instructions Recorded Confirmed HYDROcodone/APAP 7.5-325MG [[place] 0.5 tab PO DAILY PRN 10/18/16 05/19/17 7.5-325] ALPRAZolam [Xanax] 1 mg PO BID 05/04/17 05/19/17 Aspirin 81 mg PO DAILY 05/04/17 05/19/17 Atorvastatin [Lipitor] 40 mg PO BID 05/19/17 05/19/17 Clopidogrel [Plavix] 75 mg PO BID 05/19/17 05/19/17 amLODIPine [Norvasc] 5 mg PO BID 05/19/17 05/19/17 Previous Rx's Medication Instructions Recorded Omeprazole 40 mg PO DAILY #30 capsule. 05/13/17 Allergies Allergy/AdvReac Type Severity Reaction Status Date / Time No Known Allergies Allergy Verified 05/19/17 21:00 Review of Systems ROS Statement: Those systems with pertinent positive or pertinent negative responses have been documented in the HPI. ROS Other: All systems not noted in ROS Statement are negative. Past Medical History Past Medical History: Atrial Fibrillation, Chest Pain / Angina, GERD/Reflux, Hyperlipidemia, Hypertension, Osteoarthritis (OA) Additional Past Medical History / Comment(s): Low back pain, DDD, PILI SCIATIC NERVE PAIN, unsure of A-fib but states having rapid heart rate History of Any Multi-Drug Resistant Organisms: None Reported Past Surgical History: Heart Catheterization With Stent, Joint Replacement Additional Past Surgical History / Comment(s): Total L/R hip arthroplasty, ECTOPIC PREG - LT SALPINGECTOMY. Past Anesthesia/Blood Transfusion Reactions: No Reported Reaction Additional Past Anesthesia/Blood Transfusion Reaction / Comment(s): after hip replacement last time had very slow pulse Date of Last Stent Placement:: 05/05/17 Past Psychological History: Anxiety Smoking Status: Former smoker Past Alcohol Use History: None Reported Past Drug Use History: None Reported - Past Family History Mother Family Medical History: Cancer Additional Family Medical History / Comment(s): Pancreatic with mets. Mother at age 68yrs. Father Family Medical History: Cancer Additional Family Medical History / Comment(s): Small cell lung carcinoma. General Exam Limitations: no limitations General appearance: alert, in no apparent distress Head exam: Present: atraumatic, normocephalic Eye exam: Present: normal appearance, PERRL ENT exam: Present: normal exam Neck exam: Present: normal inspection. Absent: meningismus Respiratory exam: Present: normal lung sounds bilaterally. Absent: respiratory distress Cardiovascular Exam: Present: regular rate, normal rhythm GI/Abdominal exam: Present: soft. Absent: distended Extremities exam: Present: normal inspection, pedal edema. Absent: tenderness Neurological exam: Present: alert, oriented X3, CN II-XII intact. Absent: motor sensory deficit Psychiatric exam: Present: normal affect, normal mood Skin exam: Present: warm, dry. Absent: cyanosis, diaphoretic Course Vital Signs 05/19/17 05/19/17 20:57 21:00 Temperature 97.1 F L Pulse Rate 88 Pulse Rate [ 87 [place] ] Respiratory 20 Rate Blood Pressure 143/83 O2 Sat by Pulse 95 Oximetry EKG Findings - EKG Comments: EKG Findings:: EKG shows sinus rhythm, PAC and PVC, left bundle branch block, ventricular rate 80, MD interval 202, castration 136, QTC 491, no ST segment elevation meeting [place]. Medical Decision Making - Medical Decision Making 61-year-old female presenting with chest pain, she has had 2 consecutive heart catheterizations in the past 2 weeks both resulting in stent placement. EKG shows left bundle branch block, this is new compared to EKG May 10. Multiple previous EKGs are reviewed. Laboratory studies are obtained, white blood cell count normal hemoglobin 12.8 which is stable, troponin is negative. Case discussed with Dr. Shah. Patient will be placed in observation, serial cardiac enzymes are obtained, patient is initiated on heparin awaiting cardiology evaluation. - Lab Data Result diagrams: 05/19/17 21:36 05/19/17 21:36 Lab Results 05/19/17 05/19/17 05/19/17 Range/Units 21:36 21:36 21:36 WBC 6.5 (3.8-10.6) k/uL RBC 4.37 (3.80-5.40) m/uL Hgb 12.8 (11.4-16.0) gm/dL Hct 38.9 (34.0-46.0) % MCV 89.0 (80.0-100.0) fL MCH 29.3 (25.0-35.0) pg MCHC 33.0 (31.0-37.0) g/dL RDW 12.9 (11.5-15.5) % Plt Count 292 (150-450) k/uL Neutrophils % 60 % Lymphocytes % 28 % Monocytes % 5 % Eosinophils % 5 % Basophils % 1 % Neutrophils # 3.9 (1.3-7.7) k/uL Lymphocytes # 1.8 (1.0-4.8) k/uL Monocytes # 0.3 (0-1.0) k/uL Eosinophils # 0.4 (0-0.7) k/uL Basophils # 0.0 (0-0.2) k/uL PT (9.0-12.0) sec INR (<1.2) APTT (22.0-30.0) sec Sodium 142 (137-145) mmol/L Potassium 3.8 (3.5-5.1) mmol/L Chloride 106 (98-107) mmol/L Carbon Dioxide 27 (22-30) mmol/L Anion Gap 9 mmol/L BUN 12 (7-17) mg/dL Creatinine 0.79 (0.52-1.04) mg/dL Est GFR (MDRD) Af Amer >60 (>60 ml/min/1.73 sqM) Est GFR (MDRD) Non-Af >60 (>60 ml/min/1.73 sqM) Glucose 114 H (74-99) mg/dL Calcium 9.7 (8.4-10.2) mg/dL Magnesium 1.9 (1.6-2.3) mg/dL Total Bilirubin 0.3 (0.2-1.3) mg/dL AST 37 H (14-36) U/L ALT 95 H (9-52) U/L Alkaline Phosphatase 97 (38-126) U/L Total Creatine Kinase 59 (30-135) U/L CK-MB (CK-2) 0.5 (0.0-2.4) ng/mL CK-MB (CK-2) Rel Index 0.8 Troponin I <0.012 (0.000-0.034) ng/mL NT-Pro-B Natriuret Pep pg/mL Total Protein 6.9 (6.3-8.2) g/dL Albumin 4.1 (3.5-5.0) g/dL Lipase 232 (23-300) U/L 05/19/17 05/19/17 Range/Units 21:36 21:36 WBC (3.8-10.6) k/uL RBC (3.80-5.40) m/uL Hgb (11.4-16.0) gm/dL Hct (34.0-46.0) % MCV (80.0-100.0) fL MCH (25.0-35.0) pg MCHC (31.0-37.0) g/dL RDW (11.5-15.5) % Plt Count (150-450) k/uL Neutrophils % % Lymphocytes % % Monocytes % % Eosinophils % % Basophils % % Neutrophils # (1.3-7.7) k/uL Lymphocytes # (1.0-4.8) k/uL Monocytes # (0-1.0) k/uL Eosinophils # (0-0.7) k/uL Basophils # (0-0.2) k/uL PT 10.0 (9.0-12.0) sec INR 1.0 (<1.2) APTT 25.5 (22.0-30.0) sec Sodium (137-145) mmol/L Potassium (3.5-5.1) mmol/L Chloride (98-107) mmol/L Carbon Dioxide (22-30) mmol/L Anion Gap mmol/L BUN (7-17) mg/dL Creatinine (0.52-1.04) mg/dL Est GFR (MDRD) Af Amer (>60 ml/min/1.73 sqM) Est GFR (MDRD) Non-Af (>60 ml/min/1.73 sqM) Glucose (74-99) mg/dL Calcium (8.4-10.2) mg/dL Magnesium (1.6-2.3) mg/dL Total Bilirubin (0.2-1.3) mg/dL AST (14-36) U/L ALT (9-52) U/L Alkaline Phosphatase (38-126) U/L Total Creatine Kinase (30-135) U/L CK-MB (CK-2) (0.0-2.4) ng/mL CK-MB (CK-2) Rel Index Troponin I (0.000-0.034) ng/mL NT-Pro-B Natriuret Pep 71 pg/mL Total Protein (6.3-8.2) g/dL Albumin (3.5-5.0) g/dL Lipase (23-300) U/L Disposition Clinical Impression: New onset left bundle branch block (LBBB), Chest pain Disposition: ADMITTED IP TO THIS [facility] Condition: Stable Referrals: Manolo Hackett MD [Primary Care Provider] - 1-2 days Decision to Admit Reason: Admit from EC Decision Date: 05/19/17 Decision Time: 23:12
[2017-05-19 21:51] LABS: Basophils % (A) 1 %; Eosinophils # (A) 0.4 k/uL (0-0.7); Eosinophils % (A) 5 %; HCT 38.9 % (34.0-46.0); HGB 12.8 gm/dL (11.4-16.0); Lymphocytes # (A) 1.8 k/uL (1.0-4.8); Lymphocytes % (A) 28 %; MCH 29.3 pg (25.0-35.0); Mean Platelet Volume 7.3; Monocytes # (A) 0.3 k/uL (0-1.0); Monocytes % (A) 5 %; Neutrophils # (A) 3.9 k/uL (1.3-7.7); Neutrophils % (A) 60 %; Platelet Count 292 k/uL (150-450); RBC 4.37 m/uL (3.80-5.40); RDW 12.9 % (11.5-15.5); WBC 6.5 k/uL (3.8-10.6)
--- NOTE | 2017-05-19 21:55 | XR ---
EXAMINATION TYPE: XR chest 2V DATE OF EXAM: 05/19/2017 COMPARISON: NONE HISTORY: 05/10/2017 TECHNIQUE: Frontal and lateral views of the chest are obtained. FINDINGS: Heart and mediastinum are normal. Lungs are clear. Diaphragm is normal. Bony thorax is int act. There are chest leads. IMPRESSION: Normal chest. No change.
[2017-05-19 21:59] LABS: ALT 95 U/L (9-52); AST 37 U/L (14-36); Albumin 4.1 g/dL (3.5-5.0); Alkaline Phosphatase 97 U/L (38-126); Anion Gap 9 mmol/L; Blood Urea Nitrogen 12 mg/dL (7-17); Calcium 9.7 mg/dL (8.4-10.2); Carbon Dioxide 27 mmol/L (22-30); Chloride 106 mmol/L (98-107); Glucose 114 mg/dL (74-99); Lipase 232 U/L (23-300); Magnesium 1.9 mg/dL (1.6-2.3); Potassium 3.8 mmol/L (3.5-5.1); Sodium 142 mmol/L (137-145); Total Bilirubin 0.3 mg/dL (0.2-1.3); Total Protein 6.9 g/dL (6.3-8.2)
[2017-05-19 22:05] LABS: Partial Thromboplastin Time 25.5 sec (22.0-30.0)
[2017-05-19 22:19] LABS: Creatine Kinase 59 U/L (30-135)
[2017-05-19 22:33] LABS: Creatine Kinase MB 0.5 ng/mL (0.0-2.4); Troponin I <0.012 ng/mL (0.000-0.034)
[2017-05-19] MEDS ORDERED: ACETAMINOPHEN TAB 325 MG TAB PO PRN (23:02)
[2017-05-19] MEDS ORDERED: NALOXONE 0.4 MG/ML 1 ML VIAL IV PRN (23:02)
[2017-05-19] MEDS ORDERED: NITROGLYCERIN SL TABS 0.4 MG TAB SUBLINGUAL PRN (23:05)
[2017-05-19] MEDS ORDERED: HEPARIN SODIUM,PORCINE 5,000 UNIT/ML 1 ML VIAL IV ONE (23:06)
[2017-05-19] MEDS ORDERED: HEPARIN SODIUM,PORCINE 5,000 UNIT/ML 1 ML VIAL IV PRN (23:06)
[2017-05-19] MEDS: HEPARIN SOD,PORK IN 0.45% NACL 25,000 UNIT in 0.45% NACL 1 500ML.BAG IV SCH (23:24)
[2017-05-20] MEDS ORDERED: TEMAZEPAM 15 MG CAP PO PRN (00:30)
[2017-05-20] MEDS: HYDROmorphone 0.5 MG/0.5 ML SYRINGE IVP PRN (00:36)
[2017-05-20 05:06] LABS: Basophils % (A) 1 %; Eosinophils # (A) 0.3 k/uL (0-0.7); Eosinophils % (A) 5 %; HCT 36.5 % (34.0-46.0); HGB 11.8 gm/dL (11.4-16.0); Lymphocytes # (A) 2.5 k/uL (1.0-4.8); Lymphocytes % (A) 40 %; MCH 28.9 pg (25.0-35.0); MCHC 32.3 g/dL (31.0-37.0); MCV 89.3 fL (80.0-100.0); Mean Platelet Volume 7.9; Monocytes # (A) 0.3 k/uL (0-1.0); Monocytes % (A) 5 %; Neutrophils # (A) 2.9 k/uL (1.3-7.7); Neutrophils % (A) 48 %; Platelet Count 246 k/uL (150-450); RBC 4.09 m/uL (3.80-5.40); RDW 13.8 % (11.5-15.5); WBC 6.1 k/uL (3.8-10.6)
[2017-05-20 05:32] LABS: Creatine Kinase 50 U/L (30-135)
[2017-05-20 05:39] LABS: ALT 82 U/L (9-52); AST 31 U/L (14-36); Albumin 3.5 g/dL (3.5-5.0); Alkaline Phosphatase 101 U/L (38-126); Anion Gap 8 mmol/L; Blood Urea Nitrogen 11 mg/dL (7-17); Calcium 9.3 mg/dL (8.4-10.2); Carbon Dioxide 26 mmol/L (22-30); Chloride 110 mmol/L (98-107); Glucose 102 mg/dL (74-99); Potassium 4.1 mmol/L (3.5-5.1); Sodium 144 mmol/L (137-145); Total Bilirubin 0.3 mg/dL (0.2-1.3)
[2017-05-20 05:46] LABS: Creatine Kinase MB 0.5 ng/mL (0.0-2.4); Troponin I <0.012 ng/mL (0.000-0.034)
[2017-05-20] MEDS: ALPRAZolam 0.5 MG TAB PO SCH ×2 (08:35→21:26)
[2017-05-20] MEDS: PANTOPRAZOLE 40 MG TABLET PO SCH (08:36)
[2017-05-20] MEDS: amLODIPine 5 MG TAB PO SCH ×2 (08:36→21:27)
[2017-05-20] MEDS: ASPIRIN 81 MG PO SCH (08:36)
[2017-05-20] MEDS: ATORVASTATIN 40 MG TAB PO SCH ×2 (08:36→19:45)
--- NOTE | 2017-05-20 08:49 | P.CRDCN ---
History of Present Illness History of present illness: Patient presented with chest discomfort She states that she has had these pains unit before she underwent coronary stenting. The pain comes and goes and is present at rest. Nonradiating. She has several episodes of vomiting. No other GI symptoms. She is a 2 cardiac catheterizations in the last few weeks and coronary stenting thereafter Home medications reviewed and documented in the chart ALLERGIES none My review of systems Past medical history of coronary RCA score stenting recently on 2 occasions atrial fibrillation recurrent chest discomfort occurred dyslipidemia Past history of smoking Past history of hip arthroplasty Twelve-lead ECG shows sinus mechanism left bundle branch block Labs are reviewed and documented in the chart I enzymes 2 are normal Examination her blood pressure is 120/71 mmHg respirations are normal pulses normal afebrile She's sitting up comfortably in bed. Sounds are clear no rhonchi no crackles Heart sounds are normal normal S1 normal S2 Abdomen soft nontender Extremities warm no edema Impression Atypical chest discomfort with normal cardiac enzymes Coronary artery disease status post coronary stenting on 2 occasions within the last week or 2 History of atrial fibrillation Left bundle branch block pattern Suggest Observation only at this time ablating in the hallways continue current medications No plans for Mayra catheterization this time unless is a change in her condition if she has EKG changes so switched chest discomfort or abnormal cardiac enzymes Her pain is atypical Past Medical History Past Medical History: Atrial Fibrillation, Chest Pain / Angina, GERD/Reflux, Hyperlipidemia, Hypertension, Osteoarthritis (OA) Additional Past Medical History / Comment(s): Low back pain, DDD, PILI SCIATIC NERVE PAIN, unsure of A-fib but states having rapid heart rate History of Any Multi-Drug Resistant Organisms: None Reported Past Surgical History: Heart Catheterization With Stent, Joint Replacement Additional Past Surgical History / Comment(s): Total L/R hip arthroplasty, ECTOPIC PREG - LT SALPINGECTOMY. Past Anesthesia/Blood Transfusion Reactions: No Reported Reaction Additional Past Anesthesia/Blood Transfusion Reaction / Comment(s): after hip replacement last time had very slow pulse Date of Last Stent Placement:: 05/05/17 Past Psychological History: Anxiety Additional Psychological History / Comment(s): Pt resides alone. Pt normally is independent with her ADls. She drives a car. Smoking Status: Former smoker Past Alcohol Use History: None Reported Additional Past Alcohol Use History / Comment(s): quit smoking 4 months ago, started smoking at age of 13, smoked 1ppd Past Drug Use History: None Reported - Past Family History Mother Family Medical History: Cancer Additional Family Medical History / Comment(s): Pancreatic with mets. Mother at age 68yrs. Father Family Medical History: Cancer Additional Family Medical History / Comment(s): Small cell lung carcinoma. Medications and Allergies Home Medications Medication Instructions Recorded Confirmed Type HYDROcodone/APAP 7.5-325MG [Brock 0.5 tab PO DAILY PRN 10/18/16 05/19/17 History 7.5-325] ALPRAZolam [Xanax] 1 mg PO BID 05/04/17 05/19/17 History Aspirin 81 mg PO DAILY 05/04/17 05/19/17 History Omeprazole 40 mg PO DAILY #30 capsule. 05/13/17 05/19/17 Rx Atorvastatin [Lipitor] 40 mg PO BID 05/19/17 05/19/17 History Clopidogrel [Plavix] 75 mg PO BID 05/19/17 05/19/17 History amLODIPine [Norvasc] 5 mg PO BID 05/19/17 05/19/17 History Allergies Allergy/AdvReac Type Severity Reaction Status Date / Time No Known Allergies Allergy Verified 05/19/17 21:00 Physical Exam Vitals: Vital Signs Temp Pulse Pulse Resp BP BP Pulse Ox 05/20/17 04:00 97.6 F 71 17 120/71 99 05/19/17 23:46 78 18 100/68 96 05/19/17 23:31 97.8 F 77 18 119/80 100 05/19/17 23:00 74 18 110/70 98 05/19/17 22:00 84 18 116/76 100 05/19/17 21:00 76 87 18 134/85 100 05/19/17 20:57 97.1 F L 88 20 143/83 95 Intake and Output 05/19/17 05/20/17 05/20/17 22:59 06:59 14:59 Intake Total 120.12 0 Balance 120.12 0 Intake: Intake, IV Titration 120.12 0 Amount Heparin Sod,Pork in 0.45% 120.12 0 NaCl 25,000 unit In 0.45 % NaCl 1 500ml.bag @ 12 UNITS/KG/HR 16.8 mls/hr IV .Q24H [facility] Rx#: [id number] Oral 0 Other: Voiding Method Toilet Weight 70.035 kg 74.9 kg Results 05/20/17 04:37 05/20/17 04:37 Cardiac Enzymes 05/19/17 05/19/17 05/20/17 Range/Units 21:36 21:36 04:37 AST 37 H (14-36) U/L CK-MB (CK-2) 0.5 0.5 (0.0-2.4) ng/mL Troponin I <0.012 <0.012 (0.000-0.034) ng/mL 05/20/17 Range/Units 04:37 AST 31 (14-36) U/L CK-MB (CK-2) (0.0-2.4) ng/mL Troponin I (0.000-0.034) ng/mL Coagulation 05/19/17 05/20/17 Range/Units 21:36 04:37 PT 10.0 (9.0-12.0) sec APTT 25.5 90.4 H (22.0-30.0) sec CBC 05/19/17 05/20/17 Range/Units 21:36 04:37 WBC 6.5 6.1 (3.8-10.6) k/uL RBC 4.37 4.09 (3.80-5.40) m/uL Hgb 12.8 11.8 (11.4-16.0) gm/dL Hct 38.9 36.5 (34.0-46.0) % Plt Count 292 246 (150-450) k/uL Comprehensive Metabolic Panel 05/19/17 05/20/17 Range/Units 21:36 04:37 Sodium 142 144 (137-145) mmol/L Potassium 3.8 4.1 (3.5-5.1) mmol/L Chloride 106 110 H (98-107) mmol/L Carbon Dioxide 27 26 (22-30) mmol/L BUN 12 11 (7-17) mg/dL Creatinine 0.79 0.80 (0.52-1.04) mg/dL Glucose 114 H 102 H (74-99) mg/dL Calcium 9.7 9.3 (8.4-10.2) mg/dL AST 37 H 31 (14-36) U/L ALT 95 H 82 H (9-52) U/L Alkaline Phosphatase 97 101 (38-126) U/L Total Protein 6.9 6.0 L (6.3-8.2) g/dL Albumin 4.1 3.5 (3.5-5.0) g/dL Current Medications Generic Name Dose Route Start Last Admin Trade Name Freq PRN Reason Stop Dose Admin Acetaminophen 650 mg 05/19/17 23:02 Tylenol Tab PO Q6HR PRN Mild Pain or Fever > 100.5 Hydrocodone Bitart/Acetaminophen 0.5 each 05/19/17 23:04 Brock 7.5-325 PO DAILY PRN Pain Alprazolam 1 mg 05/20/17 09:00 05/20/17 08:35 Xanax PO 1 mg BID [facility] Administration Amlodipine Besylate 5 mg 05/20/17 09:00 05/20/17 08:36 Norvasc PO 5 mg BID [facility] Administration Aspirin 81 mg 05/20/17 09:00 05/20/17 08:36 Aspirin PO 81 mg DAILY [facility] Administration Atorvastatin Calcium 40 mg 05/20/17 09:00 05/20/17 08:36 Lipitor PO 40 mg BID [facility] Administration Clopidogrel Bisulfate 75 mg 05/20/17 09:00 Plavix PO DAILY [facility] Heparin Sodium (Porcine) 0 unit 05/19/17 23:06 Heparin IV PER PROTOCOL PRN Low PTT Protocol Hydromorphone HCl 0.5 mg 05/19/17 23:02 05/20/17 00:36 Dilaudid IVP 0.5 mg Q3HR PRN Administration Moderate Pain Heparin Sodium/Sodium Chloride 500 mls @ 16.8 mls/hr 05/19/17 23:15 05/20/17 07:57 25,000 unit/ Sodium Chloride IV 10 units/kg/hr .Q24H [facility] 14 mls/hr Protocol Titration 12 UNITS/KG/HR Naloxone HCl 0.2 mg 05/19/17 23:02 Narcan IV Q2M PRN Opioid Reversal Nitroglycerin 0.4 mg 05/19/17 23:05 Nitrostat SUBLINGUAL Q5M PRN Chest Pain Pantoprazole Sodium 40 mg 05/20/17 09:00 05/20/17 08:36 Protonix PO 40 mg DAILY [facility] Administration Temazepam 15 mg 05/20/17 00:30 Restoril PO HS PRN Insomnia Intake and Output 05/19/17 05/20/17 05/20/17 22:59 06:59 14:59 Intake Total 120.12 0 Balance 120.12 0 Intake: Intake, IV Titration 120.12 0 Amount Heparin Sod,Pork in 0.45% 120.12 0 NaCl 25,000 unit In 0.45 % NaCl 1 500ml.bag @ 12 UNITS/KG/HR 16.8 mls/hr IV .Q24H [facility] Rx#: [id number] Oral 0 Other: Voiding Method Toilet Weight 70.035 kg 74.9 kg 05/20/17 04:37 05/20/17 04:37
[2017-05-20] MEDS: CLOPIDOGREL 75 MG TAB PO SCH (09:25)
[2017-05-20 09:28] LABS: Creatine Kinase 54 U/L (30-135)
[2017-05-20 09:39] LABS: Creatine Kinase MB 0.5 ng/mL (0.0-2.4); Troponin I <0.012 ng/mL (0.000-0.034)
--- NOTE | 2017-05-20 09:47 | HP ---
HISTORY AND PHYSICAL CHIEF COMPLAINT: Chest pain. HISTORY OF PRESENT ILLNESS: This 61-year-old woman with a past medical history of multiple medical problems including atrial fibrillation, history of GERD, hypertension, history of hyperlipidemia, history of DJD, history of bilateral pain, history of CAD and stent, history of anxiety being followed by Dr. Hackett in the outpatient setting, had recent stenting x2 by Dr. Granados. The patient was recently admitted also with hemorrhoidal bleeding and patient discharged. Currently the patient is complaining of chest pain, mild to moderate intensity pain which was heavy in character, felt in the epigastrium and the patient came to [facility] admitted for evaluation and treatment. Troponins are negative and EKG did not show acute abnormality. There is no history of fever, rigors. No history of headache, loss conscious, seizures. EKG showed diffuse ST-T changes and left bundle branch block also. PAST MEDICAL HISTORY: History of atrial fibrillation, history of GERD, hypertension, hyperlipidemia, history of degenerative joint disease. MEDICATIONS: Prior to admission include home medications are: 1. Plavix 75 mg p.o. b.i.d. 2. Omeprazole 40 mg. 3. Xanax 1 mg p.o. b.i.d. 4. [place] 0.5 daily p.r.n. 5. Lipitor 40 mg b.i.d. 6. Aspirin 81 mg daily. 7. Norvasc 5 mg p.o. b.i.d. ALLERGIES: None. FAMILY HISTORY: History of pancreatic cancer with metastasis. SOCIAL HISTORY: Previous history of smoking. No history of current smoking or alcohol intake. REVIEW OF SYSTEMS: ENT: No diminished hearing or vision. CARDIOVASCULAR: As mentioned early. RESPIRATORY: As mentioned earlier. GI: No nausea. : No dysuria. NERVOUS SYSTEM: No numbness or weakness. ALLERGY/IMMUNOLOGY No history of asthma. MUSCULOSKELETAL: As mentioned earlier. HEMATOLOGY: No history of anemia. ENDOCRINE: No history of diabetes or hypothyroidism. CONSTITUTIONAL: As mentioned earlier. DERMATOLOGY: Negative. RHEUMATOLOGY: Negative. PSYCHIATRIC: As mentioned earlier. PHYSICAL EXAM: Patient is alert, oriented x3. The pulse is 84, blood pressure 116/76, respiration 18, temperature is normal, pulse ox 100% on 2 L. HEENT: Conjunctivae normal. Oral mucosa moist. Neck is no jugular venous distention. No carotid bruit. No lymph node enlargement. CARDIOVASCULAR: S1, S2. No S3, no S4. RESPIRATORY: Breath sounds diminished in the bases. A few scattered rhonchi. No crackles. ABDOMEN: Soft, nontender. No mass palpable. LEGS: No edema, no swelling. NERVOUS SYSTEM: Higher functions as mentioned earlier. Moves all four limbs. No focal deficits. LYMPHATIC no lymphadenopathy in the neck, axillae, or groin. SKIN: No ulcer, rash or bleeding. LAB STUDIES: CBC within normal limits. Glucose 114. AST is 37 and ALT 95. ASSESSMENT: 1. Chest pain, possible unstable angina. 2. History of recent coronary artery disease stenting x2. 3. Gastroesophageal reflux disease. 4. History of recent possible hemorrhoidal bleeding. 5. Hypertension. 6. Hyperlipidemia. 7. Degenerative joint disease. 8. Anxiety. 9. Increased AST and ALT. RECOMMENDATIONS AND DISCUSSION: This 61-year-old woman who presented with multiple complex medical issues, will monitor the patient closely. Continue the current management and symptomatic treatment. Unstable angina protocol. I would recommend IV heparin and also I would recommend cardiology consultation. Resume the home medications. Prognosis guarded because of multiple complex medical issues. Further recommendations to follow. Copy of dictation forwarded to Dr. Hackett, who is the primary physician. MMODL / IJN: [id number] / MTDD
[2017-05-20 10:46] LABS: Appearance,Urine Cloudy (Clear); Bacteria,Urine Rare /hpf; Bilirubin,Urine Negative (Negative); Blood,Urine Negative (Negative); Color,Urine Light Yellow; Glucose,Urine (UA) Negative (Negative); Ketones,Urine Negative (Negative); Leukocyte Esterase,Urine Large (Negative); Mucus,Urine Rare /hpf; Nitrite,Urine Negative (Negative); Protein,Urine Negative (Negative); RBC,Urine 4 /hpf (0-5); Specific Gravity,Urine 1.008 (1.001-1.035); Squamous Epithelial Cell,Urine 3 /hpf (0-4); Urobilinogen,Urine <2.0 mg/dL (<2.0); WBC,Urine 29 /hpf (0-5)
[2017-05-20] MEDS ORDERED: ASPIRIN 325 MG TAB PO STA (12:56)
[2017-05-20] MEDS ORDERED: ALPRAZolam 0.5 MG TAB PO PRN (12:56)
[2017-05-20] MEDS ORDERED: SODIUM CHLORIDE 0.9% 1,000 ML in EMPTY BAG 1 BAG IV ONE (12:56)
[2017-05-20] MEDS ORDERED: ALPRAZolam 0.25 MG TAB PO PRN (12:56)
[2017-05-20] MEDS ORDERED: ATORVASTATIN 80 MG TAB PO STA (12:56)
[2017-05-20] MEDS ORDERED: NITROGLYCERIN SL TABS 0.4 MG TAB SUBLINGUAL PRN (12:56)
[2017-05-20] MEDS: NITROGLYCERIN-D5W PMX 50 MG in DEXTROSE/WATER 1 250ML.BAG IV SCH (13:34)
[2017-05-20] MEDS: HYDROcodone/APAP 7.5-325MG 1 EACH TAB PO PRN (15:14)
[2017-05-20] MEDS: DOCUSATE 100 MG CAP PO SCH (17:50)
[2017-05-20] MEDS: SULFAMETHOX-TMP 800-160MG 1 EACH TAB PO SCH (19:45)
[2017-05-21] MEDS: HEPARIN SOD,PORK IN 0.45% NACL 25,000 UNIT in 0.45% NACL 1 500ML.BAG IV SCH (02:54)
[2017-05-21] MEDS: HYDROmorphone 0.5 MG/0.5 ML SYRINGE IVP PRN (05:50)
[2017-05-21] MEDS: ASPIRIN 81 MG PO SCH (05:51)
[2017-05-21] MEDS: CLOPIDOGREL 75 MG TAB PO SCH (05:51)
[2017-05-21] MEDS: amLODIPine 5 MG TAB PO SCH ×2 (05:51→21:44)
[2017-05-21] MEDS: ATORVASTATIN 40 MG TAB PO SCH ×2 (05:52→21:44)
[2017-05-21] MEDS: SULFAMETHOX-TMP 800-160MG 1 EACH TAB PO SCH ×2 (05:52→21:44)
[2017-05-21] MEDS: PANTOPRAZOLE 40 MG TABLET PO SCH (05:52)
[2017-05-21] MEDS: DOCUSATE 100 MG CAP PO SCH ×2 (05:52→21:44)
--- NOTE | 2017-05-21 06:41 | PN ---
PROGRESS NOTE DATE OF SERVICE: 05/20/2017 This 61-year-old woman who was admitted with chest pain had a previous stenting. The patient continues to have chest pain. Patient is on nitroglycerin and heparin drips also. Cardiology is following the patient closely. Pain is improving significantly. The troponins are negative so far. UA showed a possible UTI. PHYSICAL EXAM: Alert and oriented x3. Pulse 73, blood pressure 130/60, respiration 18, temperature 97 degrees, pulse ox 97% on 2 L. HEENT: Conjunctivae normal. Oral mucosa moist. Neck is no jugular venous distention. No carotid bruit. No lymph node enlargement. CARDIOVASCULAR: Breath sounds diminished in the bases. No rhonchi, no crackles. ABDOMEN: Soft, nontender. LEGS: No edema. No swelling. CENTRAL NERVOUS SYSTEM: No focal deficits. LABS: CBC noted. Otherwise UA noted and cultures are pending at this time. ASSESSMENT: 1. Chest pain possible unstable angina. 2. History of coronary artery disease and stent x3. 3. Gastroesophageal reflux disease. 4. Urinary tract infection. 5. History of recent possible hemorrhoidal bleeding. 6. Hypertension, essential. 7. Hyperlipidemia. 8. Degenerative joint disease. 9. Anxiety. 10.Increased AST and ALT. RECOMMENDATIONS AND DISCUSSION: I recommend to continue current management and continue with symptomatic treatment. Otherwise at this time I recommend continue with beta blockers and IV heparin, nitroglycerin. Also recommend urine culture as well as p.o. antibiotics. Closely monitor. Guarded prognosis. Further recommendations to follow. MMCHEL / RENEN: [id number] / ELIZABETH
[2017-05-21 06:45] LABS: Basophils % (A) 1 %; Eosinophils # (A) 0.3 k/uL (0-0.7); Eosinophils % (A) 5 %; HCT 36.2 % (34.0-46.0); HGB 11.6 gm/dL (11.4-16.0); Lymphocytes % (A) 37 %; MCH 28.7 pg (25.0-35.0); MCHC 32.1 g/dL (31.0-37.0); MCV 89.5 fL (80.0-100.0); Monocytes # (A) 0.3 k/uL (0-1.0); Monocytes % (A) 5 %; Neutrophils # (A) 2.7 k/uL (1.3-7.7); Neutrophils % (A) 51 %; Platelet Count 267 k/uL (150-450); RBC 4.05 m/uL (3.80-5.40); RDW 13.9 % (11.5-15.5); WBC 5.3 k/uL (3.8-10.6)
[2017-05-21] MEDS ORDERED: LIDOCAINE 2% INJ 20 MG/ML (20 ML MDV) ONE (08:08)
[2017-05-21] MEDS ORDERED: MIDAZOLAM 2 MG/2 ML VIAL ONE (08:13)
[2017-05-21] MEDS ORDERED: MIDAZOLAM 2 MG/2 ML VIAL IV ONE (08:22)
[2017-05-21] MEDS ORDERED: VERAPAMIL 2.5 MG/ML 2 ML AMP ONE (08:26)
[2017-05-21] MEDS ORDERED: LIDOCAINE 2% INJ 20 MG/ML SQ ONE (08:30)
[2017-05-21] MEDS ORDERED: VERAPAMIL SYRINGE (5 MG/10 ML) INTRAARTER ONE ×3 (08:32→09:24)
[2017-05-21] MEDS ORDERED: NITROGLYCERIN 1000MCG/10ML SYRINGE INTRAARTER ONE (08:35)
[2017-05-21] MEDS ORDERED: NITROGLYCERIN 1000MCG/10ML SYRINGE INTRACORON ONE ×3 (08:36→09:17)
[2017-05-21] MEDS ORDERED: BIVALIRUDIN BOLUS 250 MG/50 ML IV ONE (08:43)
[2017-05-21] MEDS ORDERED: BIVALIRUDIN 250 MG in SODIUM CHLORIDE 0.9% 50 ML IV ONE (08:47)
[2017-05-21] MEDS ORDERED: IV FLUID CONTINUATION 1,000 ML IV ONE (08:47)
[2017-05-21] MEDS ORDERED: HYDROmorphone 2 MG/ML 1 ML SYRINGE ONE (08:55)
[2017-05-21] MEDS ORDERED: HYDROmorphone 2 MG/ML 1 ML SYRINGE IV ONE (08:58)
[2017-05-21] MEDS ORDERED: ADENOSINE 90 MG in SODIUM CHLORIDE 0.9% 60 ML IVP ONE (09:00)
[2017-05-21] MEDS ORDERED: METOPROLOL TARTRATE 5 MG/5 ML VIAL IVP ONE ×2 (09:00→09:04)
[2017-05-21] MEDS ORDERED: IOHEXOL 350 MG/ML 125ML BOTTLE INJ ONE (09:23)
[2017-05-21] MEDS ORDERED: CLOPIDOGREL 75 MG TAB ONE (09:24)
[2017-05-21] MEDS ORDERED: CLOPIDOGREL 75 MG TAB PO ONE (09:28)
[2017-05-21] MEDS ORDERED: ZOLPIDEM 5 MG TAB PO PRN (09:32)
[2017-05-21] MEDS ORDERED: RX INFO: IV CONTRAST WAS GIVEN 1 EACH MISC MISCELLANE PRN (09:32)
[2017-05-21] MEDS ORDERED: NITROGLYCERIN SL TABS 0.4 MG TAB SUBLINGUAL PRN (09:32)
[2017-05-21] MEDS ORDERED: ATROPINE SULFATE 0.1 MG/ML 10ML SYRINGE IV PRN (09:32)
[2017-05-21] MEDS ORDERED: MAG HYDROX/AL HYDROX/SIMETH 30 ML CUP PO PRN (09:32)
[2017-05-21] MEDS ORDERED: SODIUM CHLORIDE 0.9% 1,000 ML IV SCH (09:45)
[2017-05-21] MEDS: ALPRAZolam 0.5 MG TAB PO SCH ×2 (10:04→21:44)
--- NOTE | 2017-05-21 10:41 | LTR ---
May 21, [address] Hackett: Ms. James Adorno presented back to the hospital with chest discomfort. I did a heart catheterization on her and that revealed patent stents in both the RCA and the circumflex with severe disease involving the first diagonal branch of the LAD. She underwent successful stenting of that diagonal branch with good angiographic results and without any complication. I want to thank you for allowing me to participate in her care. MMCHEL / IJN: [id number] /
--- NOTE | 2017-05-21 10:56 | CC ---
CARDIAC CATHETERIZATION REPORT DATE OF SERVICE: May 21, 2017 PERFORMING PHYSICIAN: Rhett Granados MD. PROCEDURE PERFORMED: 1. Selective right and left coronary angiogram. 2. Fractional flow reserve FFR of the RCA. 3. Successful stenting of the first diagonal branch of the LAD using 2.0 x 12 mm vision EMS with good angiographic results. INDICATIONS: This is a pleasant 61-year-old female patient who I follow in the office as an outpatient with a known history of coronary artery disease and prior stenting of the RCA and left circumflex. She presented back to the hospital complaining of chest discomfort. The cardiac enzymes were checked and came in to be unremarkable. The EKG showed T-wave inversion in the anterior leads. In view of the persistent chest discomfort and abnormal EKG, a heart catheterization was recommended. APPROACH: Right radial artery. COMPLICATION: None. LEVEL OF SEDATION: Moderate with sedation length of 55 minutes. PROCEDURE DESCRIPTION: After obtaining informed consent, the patient was brought to the cardiac botany laboratory assistant. The right radial artery was cannulated using micropuncture technique, the micropuncture wire passed easily then I placed a 6-[place] sheath in the right radial artery. After that I gave the patient 2 mg of verapamil IA. Subsequently I did selective right and left coronary angiogram using JR4 and JL3.5 catheters. After that, I did an FFR of the RCA and PCI of the diagonal. Please see a separate paragraph for that. SELECTIVE CORONARY ANGIOGRAM: 1. The right coronary artery is a large caliber vessel and it is a dominant vessel. The proximal RCA is stented. The stent is patent. The mid RCA has intermediate lesion in the range of 60-70%, but we FFR that lesion and that came in to be 0.90, which is nonischemic. The distal RCA appeared to be angiographically normal and bifurcates into PDA and PLV branches both are angiographically normal. 2. The left main is a short left main but angiographically normal. It bifurcates into the left circumflex and left anterior descending artery. 3. The left circumflex is a large caliber vessel and it is a nondominant vessel. The proximal left circumflex appeared to have intermediate lesion in the range of 50%. It gives rise into the first obtuse marginal branch which is an intermediate caliber vessel. It has a proximal disease in the range of 40% to 50%. The mid left circumflex appeared to have mild disease only and gives rise into the second OM, which has mild disease only. The left circumflex distally is angiographically normal. 4. The left anterior descending artery: The proximal LAD appeared to have mild disease only. Gives rise into the first diagonal branch which is an intermediate caliber vessel with proximal disease in the range of 80% to 90%. The mid LAD is angiographically normal and gives rise into the second diagonal branch which has mild disease only. The LAD distally is angiographically normal. FFR OF THE RCA: Anticoagulation was initiated using Angiomax. After zeroing the Doppler wire and equalizing between the Doppler wire and the guiding catheter which was JR4 guiding catheter, we did an FFR per IV adenosine infusion and the FFR came in to be 0.90, which is nonischemic. PCI OF THE LAD: We continued with the anticoagulation with Angiomax. Subsequently I took JL3 0.5 guide and the left main was engaged. A whisper wire was used to wire the first diagonal branch of the LAD. Subsequently I did PTCA ballooning using 2.0 x 12 mm balloon and then I deployed 2.0 x 12 mm PROMUS BRENNAN where the stent was positioned under fluoroscopy guidance and deployed under 12 atmospheres for 20 seconds with the following angiogram showing great angiographic results without perforation and without dissection. The procedure was completed without any complication. CONCLUSION: 1. Patent stent in the proximal RCA with intermediate disease in the mid RCA distal to the stent and the FFR came into be nonischemic. 2. Normal left main coronary artery. 3. Patent stent in the distal left circumflex with mild to moderate disease involving the proximal left circumflex, seems to be nonobstructive. 4. Severe disease involving the first diagonal branch of the LAD, which was opened and stented as described above. 5. Mild disease involving the LAD. POSTPROCEDURE MANAGEMENT: 1. Maximize medical treatment. 2. Follow up with the patient. MMODL / IJN: [id number] /
[2017-05-21] MEDS: NITROGLYCERIN-D5W PMX 50 MG in DEXTROSE/WATER 1 250ML.BAG IV SCH (11:11)
[2017-05-21] MEDS: HYDROcodone/APAP 7.5-325MG 1 EACH TAB PO PRN (18:45)
--- NOTE | 2017-05-21 20:35 | PN ---
PROGRESS NOTE DATE OF SERVICE: 05/21/2017 This 61-year-old woman was admitted with chest pain, unstable angina, had cardiac cath by Dr. Granados. Cardiac cath showed patent stent and severe disease involving the left diagonal branch which was opened and stented by Dr. Granados. No chest pain. No palpitations. No fever. PHYSICAL EXAM: Alert and oriented times three. Pulse 54. Blood pressure 105/70, respiration 16, temperature 96.9, pulse ox 98% on room air. HEENT: Conjunctivae normal. Neck: No jugular venous distention. Cardiovascular: S1, S2 muffled. RESPIRATORY: Breath sounds diminished in the bases. No rhonchi, no crackles. ABDOMEN: Soft, nontender. No mass palpable. Legs are no edema. No swelling. Central nervous system: Higher functions as mentioned earlier. Moves all four extremities. No focal deficits. Lymphatics: No lymph nodes palpable in the neck, axillae or groin. LABS: CBC within normal limits. UA is 29 WBCs. ASSESSMENT: 1. Chest pain possible unstable angina, status post cardiac catheterization as well as stenting of the severely diseased 1st diagonal branch of the LAD. 2. History of coronary artery disease stent x3. 3. History of gastroesophageal reflux disease. 4. Urinary tract infection. 5. History of recent possible hemorrhoidal bleeding. 6. Hypertension essential. 7. Hyperlipidemia. 8. Degenerative joint disease. 9. History of anxiety. 10.Increased AST, ALT. DISCUSSION AND RECOMMENDATIONS: I recommend to continue current medications, management and symptomatic treatment. Otherwise, as this time, I recommend continue with antiplatelet agents. Continue with beta blockers. Antibiotics for PID versus UTI. Further recommendations to follow. MMODL / IJN: [id number] /
[2017-05-22] MEDS: HYDROcodone/APAP 7.5-325MG 1 EACH TAB PO PRN (03:41)
[2017-05-22] MEDS: DOCUSATE 100 MG CAP PO SCH (04:03)
[2017-05-22 06:27] LABS: Basophils # (A) 0.1 k/uL (0-0.2); Basophils % (A) 1 %; Eosinophils # (A) 0.3 k/uL (0-0.7); Eosinophils % (A) 6 %; HCT 34.6 % (34.0-46.0); HGB 11.1 gm/dL (11.4-16.0); Lymphocytes # (A) 1.5 k/uL (1.0-4.8); Lymphocytes % (A) 26 %; MCH 29.2 pg (25.0-35.0); MCV 91.2 fL (80.0-100.0); Mean Platelet Volume 8.1; Monocytes # (A) 0.4 k/uL (0-1.0); Monocytes % (A) 6 %; Neutrophils # (A) 3.5 k/uL (1.3-7.7); Neutrophils % (A) 60 %; Platelet Count 256 k/uL (150-450); RBC 3.79 m/uL (3.80-5.40); RDW 13.9 % (11.5-15.5); WBC 5.8 k/uL (3.8-10.6)
[2017-05-22 08:30] VITALS: RESP 18; TEMP 97.3
[2017-05-22] MEDS: amLODIPine 5 MG TAB PO SCH (08:59)
[2017-05-22] MEDS: PANTOPRAZOLE 40 MG TABLET PO SCH (08:59)
[2017-05-22] MEDS: CLOPIDOGREL 75 MG TAB PO SCH (08:59)
[2017-05-22] MEDS: ALPRAZolam 0.5 MG TAB PO SCH (08:59)
[2017-05-22] MEDS: ATORVASTATIN 40 MG TAB PO SCH (08:59)
[2017-05-22] MEDS: SULFAMETHOX-TMP 800-160MG 1 EACH TAB PO SCH (08:59)
[2017-05-22] MEDS: ASPIRIN 81 MG PO SCH (08:59)
[2017-05-22 11:39] VITALS: BP 101/67; PULSE 63
[2017-05-22] MEDS: NITROGLYCERIN-D5W PMX 50 MG in DEXTROSE/WATER 1 250ML.BAG IV SCH (13:39)
[2017-05-22 14:40] VITALS: BMI 28.6
--- NOTE | 2017-05-22 15:54 | P.PN ---
Subjective Progress Note Date: 05/22/17 Is a 61-year-old female patient with history of coronary artery disease who most recently one underwent stenting of the right coronary artery by Dr. Null, was readmitted to the hospital with symptoms of chest discomfort. Patient was seen and examined this morning, no further chest discomfort, up ambulating without any difficulty. Objective - Vital Signs Vital signs: Vital Signs Temp 97.3 F L 05/22/17 11:36 Pulse 63 05/22/17 11:36 Resp 18 05/22/17 11:36 BP 101/67 05/22/17 11:36 Pulse Ox 95 05/22/17 11:36 Intake & Output 05/21/17 05/22/17 05/22/17 18:59 06:59 18:59 Intake Total 3191.64 720 Output Total 3 Balance 3188.64 720 Weight 75.8 kg 75.8 kg Intake: IV 1951.64 Sodium Chloride 0.9% 1, 800 000 ml @ 100 mls/hr IV . Q10H [facility] Rx#:[id number] Sodium Chloride 0.9% 1, 600 000 ml In Empty Bag 1 bag @ 1 ML/KG/HR 74.9 mls/hr IV .[id number] Rx#: [id number] Oral 1240 720 Output: Urine 3 Other: Voiding Method Toilet Toilet # Voids 0 2 # Bowel Movements 0 - Exam PHYSICAL EXAMINATION: HEENT: Head is atraumatic, normocephalic. Pupils equal, round. Neck is supple. There is no elevated jugular venous pressure. HEART EXAMINATION: Heart S1, S2 normal. No murmur or gallop heard. CHEST EXAMINATION: Lungs are clear to auscultation and precussion. No chest wall tenderness is noted on palpation or with deep breathing. ABDOMEN: Soft, nontender. Bowel sounds are heard. No organomegaly noted. EXTREMITIES: 2+ peripheral pulses with no evidence of peripheral edema and no calf tenderness noted. NEUROLOGIC patient is awake, alert and oriented -3. . - Labs CBC & Chem 7: 05/22/17 05:51 05/22/17 05:51 Labs: Abnormal Lab Results - Last 24 Hours (Table) 05/22/17 05/22/17 Range/Units 05:51 05:51 RBC 3.79 L (3.80-5.40) m/uL Hgb 11.1 L (11.4-16.0) gm/dL Creatinine 1.10 H (0.52-1.04) mg/dL Microbiology - Last 24 Hours (Table) 05/20/17 09:10 Urine Culture - Final Urine,Voided Assessment and Plan Plan: Assessment and Plan 1 atypical chest discomfort #2 status post recent stenting of the right coronary artery #3 hypertension #4 hyperlipidemia Plan Patient may be able to be discharged home today. We will make her a follow-up appointment in the office post discharge. DNP note has been reviewed, I agree with a documented findings and plan of care. Patient was seen and examined.
[2017-05-22] MEDS ORDERED: METOPROLOL TARTRATE 25 MG TAB PO SCH (21:00)
--- NOTE | 2017-05-23 10:31 | DS ---
DISCHARGE SUMMARY FINAL DIAGNOSES: 1. Chest pain possible unstable angina. 2. Status post cardiac catheterization and stenting of the severely diseased 1st diagonal branch LAD. 3. History of coronary artery disease and stenting x3. 4. History of gastroesophageal reflux disease. 5. Urinary tract infection. 6. History of recent possible hemorrhoidal bleeding. 7. Hypertension. 8. Hyperlipidemia. DISCHARGE DISPOSITION: The patient is being discharged in stable condition with guarded prognosis. HISTORY OF PRESENT ILLNESS: This 61-year-old woman was admitted with chest pain, was evaluated by cardiology. Patient underwent cardiac catheterization and stenting, also. Patient treated symptomatically, improved significantly. On exam, vitals are stable. Cardiovascular S1-S2 muffled. Respirations: Clear to auscultation. Abdomen soft. Nervous system: No focal deficits. DISCHARGE ADVICE AND MEDICATIONS: 1. Diet is cardiac diet. 2. Activity limited until followup. 3. Follow up with Dr. Hackett in 2-3 days. 4. Follow up with Dr. Granados as recommended. MEDICATIONS: As follows: 1. Tylenol p.r.n. 2. Xanax 1 mg p.o. b.i.d. 3. Norvasc 5 mg daily. 4. Aspirin 81 mg daily. 5. Lipitor 80 mg. 6. Plavix 75 mg. 7. Hydrocodone 7.5 mg daily p.r.n. 8. Metoprolol 25 mg p.o. b.i.d. 9. Nitrostat 0.4 mg p.r.n. 10.Omeprazole 40 mg. 11.Bactrim DS 1 p.o. b.i.d. for 4 days. Once again, the patient is being discharged in stable condition with guarded prognosis. MMODL / IJN: [id number] /
== END 2017-05-22 15:21 | disposition home or self-care (01) | DRG 247 ==
LOC: EC 20:53 → 6SEL 23:04
PROVIDERS: ADMIT Hospitalist; ATTEND Hospitalist
PROC: 4A033BC Measurement of Arterial Pressure, Coronary, Percutaneous Approach (ICD-10-PCS; 2017-05-21)
PROC: 027034Z Dilation of Coronary Artery, One Artery with Drug-eluting Intraluminal Device, Percutaneous Approach (ICD-10-PCS; principal; 2017-05-21 07:51)
PROC: 4A023N7 Measurement of Cardiac Sampling and Pressure, Left Heart, Percutaneous Approach (ICD-10-PCS; 2017-05-21 07:51)
PROC: B2111ZZ Fluoroscopy of Multiple Coronary Arteries using Low Osmolar Contrast (ICD-10-PCS; 2017-05-21 07:51)
DX: I25.110 Atherosclerotic heart disease of native coronary artery with unstable angina pectoris (principal); I48.91 Unspecified atrial fibrillation; N39.0 Urinary tract infection, site not specified; E78.5 Hyperlipidemia, unspecified; F41.9 Anxiety disorder, unspecified; I10 Essential (primary) hypertension; I44.7 Left bundle-branch block, unspecified; K21.9 Gastro-esophageal reflux disease without esophagitis; M19.90 Unspecified osteoarthritis, unspecified site; K64.9 Unspecified hemorrhoids; M54.32 Sciatica, left side; M54.31 Sciatica, right side; Z79.82 Long term (current) use of aspirin; Z79.02 Long term (current) use of antithrombotics/antiplatelets; Z79.899 Other long term (current) drug therapy; Z96.643 Presence of artificial hip joint, bilateral; Z95.5 Presence of coronary angioplasty implant and graft; Z87.891 Personal history of nicotine dependence
CPT/HCPCS: 36415; 71046; 80053; 81001; 82550; 82553; 82565; 83690; 83735; 83880; 84484; 85025; 85610; 85730; 87086; 92928; 93005; 93454; 93571; 94760; 96365; 96376; 99285

== ENCOUNTER 2017-06-13 13:26 | Emergency (ER) | payer MEDICARE ==
[2017-06-13] MEDS ORDERED: ASPIRIN 81 MG PO STA (13:58)
--- NOTE | 2017-06-13 14:04 | ED ---
General Adult HPI - General Chief complaint: Dizziness Stated complaint: Dizzy Time Seen by Provider: 06/13/17 13:51 Source: patient, EMS Mode of arrival: EMS Limitations: no limitations - History of Present Illness Initial comments: Patient is a 61-year-old female with a history of coronary artery disease and presents with a chief complaint of chest palpitations and dizziness. The patient said this happened several times today. Patient states that she was recently taken off of her beta rachel secondary to leg swelling and blistering. The patient states that this happened on Monday, and patient has had intermittent palpitations since that time. Patient cannot identify any other inciting incidences. There are no aggravating or alleviating factors though the patient does state that this mostly happens to her when she exerts herself. - Related Data Home Medications Medication Instructions Recorded Confirmed Aspirin 81 mg PO DAILY 05/04/17 06/13/17 Atorvastatin [Lipitor] 80 mg PO HS 05/27/17 06/13/17 ALPRAZolam [ALPRAZolam] 0.5 mg PO HS 06/13/17 06/13/17 ALPRAZolam [ALPRAZolam] 1 mg PO DAILY 06/13/17 06/13/17 Previous Rx's Medication Instructions Recorded Nitroglycerin Sl Tabs [Nitrostat] 0.4 mg SUBLINGUAL Q5M PRN #20 tab 05/22/17 Ticagrelor [Brilinta] 90 mg PO BID #60 tab 05/30/17 Allergies Allergy/AdvReac Type Severity Reaction Status Date / Time No Known Allergies Allergy Verified 06/13/17 14:10 Review of Systems ROS Statement: Those systems with pertinent positive or pertinent negative responses have been documented in the HPI. ROS Other: All systems not noted in ROS Statement are negative. Cardiovascular: Reports: palpitations Neurological: Reports: other (dizziness) Past Medical History Past Medical History: Atrial Fibrillation, Chest Pain / Angina, GERD/Reflux, Hyperlipidemia, Hypertension, Osteoarthritis (OA) Additional Past Medical History / Comment(s): Low back pain, DDD, PILI SCIATIC NERVE PAIN, unsure of A-fib but states having rapid heart rate, lung mass History of Any Multi-Drug Resistant Organisms: None Reported Past Surgical History: Heart Catheterization With Stent, Joint Replacement Additional Past Surgical History / Comment(s): Total L/R hip arthroplasty, ECTOPIC PREG - LT SALPINGECTOMY. Past Anesthesia/Blood Transfusion Reactions: No Reported Reaction Additional Past Anesthesia/Blood Transfusion Reaction / Comment(s): after hip replacement last time had very slow pulse Date of Last Stent Placement:: 05-21-2017 Past Psychological History: Anxiety Smoking Status: Former smoker Past Alcohol Use History: None Reported Past Drug Use History: None Reported - Past Family History Mother Family Medical History: Cancer Additional Family Medical History / Comment(s): Pancreatic with mets. Mother at age 68yrs. Father Family Medical History: Cancer Additional Family Medical History / Comment(s): Small cell lung carcinoma. General Exam Limitations: no limitations General appearance: alert, in no apparent distress Head exam: Present: atraumatic, normocephalic Eye exam: Present: normal appearance ENT exam: Present: mucous membranes moist Respiratory exam: Present: normal lung sounds bilaterally. Absent: respiratory distress Cardiovascular Exam: Present: regular rate, normal rhythm GI/Abdominal exam: Present: soft. Absent: distended, tenderness Rectal exam: Present: deferred Neurological exam: Present: alert, oriented X3 Psychiatric exam: Present: normal affect, normal mood Skin exam: Present: warm, dry, intact Course Vital Signs 06/13/17 06/13/17 06/13/17 13:28 14:12 16:09 Temperature 98.7 F 98.0 F Pulse Rate 73 66 56 L Respiratory 18 18 16 Rate Blood Pressure 139/69 139/69 137/70 O2 Sat by Pulse 100 100 100 Oximetry Medical Decision Making - Medical Decision Making Patient presents with a chief complaint of palpitations and dizziness. On initial evaluation, vital signs are stable, patient is in no acute distress. EKG performed at 1353 shows normal sinus rhythm with a rate of 62 bpm. EKG is otherwise unremarkable. 6:11 PM Plan evaluation of this patient is unremarkable. Troponins are negative 2. Chest x-ray shows no acute process. I discussed this case with Dr. Rodriguez, the patient's farm advisor who states that the patient is stable for outpatient follow-up, of which she has an appointment with him on . Currently, Dr. Rodriguez does not advise any medication changes. Patient was on a cardiac monitor technician through the entire emergency department stay, she was consistently in normal sinus rhythm with a rate between 60 and 70. I discussed the results and the care plan with the patient. She is agreeable. The patient is concerned about what to do if she feels like her heart is racing. I discussed with the patient should return to the emergency department if she is having significant symptoms or if she is worried. Currently, the patient is safe for a home disposition. Patient is clear on instruction. - Lab Data Result diagrams: 06/13/17 14:00 06/13/17 14:00 Lab Results 06/13/17 06/13/17 06/13/17 Range/Units 14:00 14:00 14:00 WBC 6.7 (3.8-10.6) k/uL RBC 4.26 (3.80-5.40) m/uL Hgb 12.5 (11.4-16.0) gm/dL Hct 38.9 (34.0-46.0) % MCV 91.3 (80.0-100.0) fL MCH 29.4 (25.0-35.0) pg MCHC 32.2 (31.0-37.0) g/dL RDW 13.0 (11.5-15.5) % Plt Count 233 (150-450) k/uL Neutrophils % 67 % Lymphocytes % 24 % Monocytes % 4 % Eosinophils % 4 % Basophils % 0 % Neutrophils # 4.5 (1.3-7.7) k/uL Lymphocytes # 1.6 (1.0-4.8) k/uL Monocytes # 0.3 (0-1.0) k/uL Eosinophils # 0.3 (0-0.7) k/uL Basophils # 0.0 (0-0.2) k/uL Sodium 143 (137-145) mmol/L Potassium 4.0 (3.5-5.1) mmol/L Chloride 106 (98-107) mmol/L Carbon Dioxide 26 (22-30) mmol/L Anion Gap 11 mmol/L BUN 12 (7-17) mg/dL Creatinine 0.83 (0.52-1.04) mg/dL Est GFR (MDRD) Af Amer >60 (>60 ml/min/1.73 sqM) Est GFR (MDRD) Non-Af >60 (>60 ml/min/1.73 sqM) Glucose 96 (74-99) mg/dL Calcium 9.6 (8.4-10.2) mg/dL Troponin I (0.000-0.034) ng/mL NT-Pro-B Natriuret Pep 65 pg/mL 06/13/17 06/13/17 Range/Units 14:00 17:15 WBC (3.8-10.6) k/uL RBC (3.80-5.40) m/uL Hgb (11.4-16.0) gm/dL Hct (34.0-46.0) % MCV (80.0-100.0) fL MCH (25.0-35.0) pg MCHC (31.0-37.0) g/dL RDW (11.5-15.5) % Plt Count (150-450) k/uL Neutrophils % % Lymphocytes % % Monocytes % % Eosinophils % % Basophils % % Neutrophils # (1.3-7.7) k/uL Lymphocytes # (1.0-4.8) k/uL Monocytes # (0-1.0) k/uL Eosinophils # (0-0.7) k/uL Basophils # (0-0.2) k/uL Sodium (137-145) mmol/L Potassium (3.5-5.1) mmol/L Chloride (98-107) mmol/L Carbon Dioxide (22-30) mmol/L Anion Gap mmol/L BUN (7-17) mg/dL Creatinine (0.52-1.04) mg/dL Est GFR (MDRD) Af Amer (>60 ml/min/1.73 sqM) Est GFR (MDRD) Non-Af (>60 ml/min/1.73 sqM) Glucose (74-99) mg/dL Calcium (8.4-10.2) mg/dL Troponin I <0.012 0.013 (0.000-0.034) ng/mL NT-Pro-B Natriuret Pep pg/mL Disposition Clinical Impression: Palpitations Disposition: HOME SELF-CARE Condition: Good Instructions: Palpitations (ED) Referrals: Manolo Hackett MD [Primary Care Provider] - 1-2 days Rhett Granados MD [STAFF PHYSICIAN] - 1-2 days
[2017-06-13 14:12] LABS: Basophils % (A) 0 %; Eosinophils # (A) 0.3 k/uL (0-0.7); Eosinophils % (A) 4 %; HCT 38.9 % (34.0-46.0); HGB 12.5 gm/dL (11.4-16.0); Lymphocytes # (A) 1.6 k/uL (1.0-4.8); Lymphocytes % (A) 24 %; MCH 29.4 pg (25.0-35.0); MCHC 32.2 g/dL (31.0-37.0); MCV 91.3 fL (80.0-100.0); Mean Platelet Volume 7.6; Monocytes # (A) 0.3 k/uL (0-1.0); Monocytes % (A) 4 %; Neutrophils # (A) 4.5 k/uL (1.3-7.7); Neutrophils % (A) 67 %; Platelet Count 233 k/uL (150-450); RBC 4.26 m/uL (3.80-5.40); WBC 6.7 k/uL (3.8-10.6)
[2017-06-13 14:23] LABS: Anion Gap 11 mmol/L; Blood Urea Nitrogen 12 mg/dL (7-17); Calcium 9.6 mg/dL (8.4-10.2); Carbon Dioxide 26 mmol/L (22-30); Chloride 106 mmol/L (98-107); Glucose 96 mg/dL (74-99); Sodium 143 mmol/L (137-145)
--- NOTE | 2017-06-13 14:39 | XR ---
EXAMINATION TYPE: XR chest 2V DATE OF EXAM: 06/13/2017 COMPARISON: Prior chest x-ray 06/04/2017 HISTORY: Pain, coronary artery disease TECHNIQUE: Frontal and lateral views of the chest are obtained. FINDINGS: There is no focal air space opacity, pleural effusion, or pneumothorax seen. The cardiac silhouette size is within normal limits. Coronary artery calcification, stent noted. The osseous str uctures are intact. IMPRESSION: No acute cardiopulmonary process.
[2017-06-13 16:11] VITALS: TEMP 98
[2017-06-13 18:37] VITALS: BP 131/74; PULSE 63; RESP 18
== END 2017-06-13 18:30 | disposition home or self-care (01) ==
LOC: EC 13:26
DX: R00.2 Palpitations (principal); R45.83 Excessive crying of child, adolescent or adult; R42 Dizziness and giddiness; E78.5 Hyperlipidemia, unspecified; I10 Essential (primary) hypertension; M19.90 Unspecified osteoarthritis, unspecified site; F41.9 Anxiety disorder, unspecified; Z87.891 Personal history of nicotine dependence; Z79.82 Long term (current) use of aspirin; Z79.899 Other long term (current) drug therapy; Z95.818 Presence of other cardiac implants and grafts
CPT/HCPCS: 36415; 71046; 80048; 83880; 84484; 85025; 93005; 99285

== ENCOUNTER 2017-06-22 22:44 | Emergency (ER) | payer MEDICARE ==
[2017-06-22] MEDS ORDERED: ASPIRIN 81 MG PO STA (22:58)
--- NOTE | 2017-06-22 23:23 | ED ---
Chest Pain HPI - General Chief Complaint: Chest Pain Stated Complaint: Headache/SISI Time Seen by Provider: 06/22/17 23:02 Source: patient Mode of arrival: wheelchair Limitations: no limitations - History of Present Illness Initial Comments: 61-year-old the male patient with past medical history significant for coronary artery disease, atrial fibrillation, presents to the emergency department today for evaluation of chest pressure and sternal tenderness. Patient reports that symptoms started last evening. She states that the pressure has continued throughout the day today. States she has been nauseated, short of breath, and has had sweats at times. Patient reports she's had stents placed at the beginning of this year. She is also reporting a mild headache that she's had throughout the day today. She does report that it is better. She denies any numbness or tingling. Denies any weakness or dizziness. Patient denies any recent rash, fever, chills, abdominal pain, vomiting, diarrhea, constipation, back pain, hematuria, dysuria, urinary urgency, urinary frequency, visual changes, or any other complaints. - Related Data Home Medications Medication Instructions Recorded Confirmed Aspirin 81 mg PO DAILY 05/04/17 06/22/17 Atorvastatin [Lipitor] 80 mg PO HS 05/27/17 06/22/17 ALPRAZolam [ALPRAZolam] 0.5 mg PO HS 06/13/17 06/22/17 ALPRAZolam [ALPRAZolam] 1 mg PO DAILY 06/13/17 06/22/17 Previous Rx's Medication Instructions Recorded Nitroglycerin Sl Tabs [Nitrostat] 0.4 mg SUBLINGUAL Q5M PRN #20 tab 05/22/17 Ticagrelor [Brilinta] 90 mg PO BID #60 tab 05/30/17 Allergies Allergy/AdvReac Type Severity Reaction Status Date / Time No Known Allergies Allergy Verified 06/22/17 23:08 Review of Systems ROS Statement: Those systems with pertinent positive or pertinent negative responses have been documented in the HPI. ROS Other: All systems not noted in ROS Statement are negative. EKG Findings - EKG Comments: EKG Findings:: EKG obtained at 2305 shows marketed sinus bradycardia with a T- wave abnormality. Ventricular rate is 43, P interval 158, QR advent 96, QT 474, QTC 400. No evidence of ST elevation or depression noted. Past Medical History Past Medical History: Atrial Fibrillation, Chest Pain / Angina, GERD/Reflux, Hyperlipidemia, Hypertension, Osteoarthritis (OA) Additional Past Medical History / Comment(s): Low back pain, DDD, PILI SCIATIC NERVE PAIN, unsure of A-fib but states having rapid heart rate, lung mass History of Any Multi-Drug Resistant Organisms: None Reported Past Surgical History: Heart Catheterization With Stent, Joint Replacement Additional Past Surgical History / Comment(s): Total L/R hip arthroplasty, ECTOPIC PREG - LT SALPINGECTOMY. Past Anesthesia/Blood Transfusion Reactions: No Reported Reaction Additional Past Anesthesia/Blood Transfusion Reaction / Comment(s): after hip replacement last time had very slow pulse Date of Last Stent Placement:: 05-21-2017 Past Psychological History: Anxiety Smoking Status: Former smoker Past Alcohol Use History: None Reported Past Drug Use History: None Reported - Past Family History Mother Family Medical History: Cancer Additional Family Medical History / Comment(s): Pancreatic with mets. Mother at age 68yrs. Father Family Medical History: Cancer Additional Family Medical History / Comment(s): Small cell lung carcinoma. General Exam Limitations: no limitations General appearance: alert, in no apparent distress, other (This is a well- developed, well-nourished adult female patient in no acute distress. Patient is laughing during physical examination and history. Vital signs upon presentation are temperature 97.7F, pulse 50, respirations 16, blood pressure 143/69, pulse ox 100% on room air.) Eye exam: Present: normal appearance, PERRL, EOMI. Absent: scleral icterus, conjunctival injection, periorbital swelling ENT exam: Present: normal exam, normal oropharynx, mucous membranes moist Respiratory exam: Present: normal lung sounds bilaterally, chest wall tenderness (Over the sternum). Absent: respiratory distress, wheezes, rales, rhonchi, stridor Cardiovascular Exam: Present: normal rhythm, bradycardia, normal heart sounds. Absent: systolic murmur, diastolic murmur, rubs, gallop, clicks GI/Abdominal exam: Present: soft, normal bowel sounds. Absent: distended, tenderness, guarding, rebound, rigid Neurological exam: Present: alert, oriented X3, CN II-XII intact Psychiatric exam: Present: normal affect, normal mood Skin exam: Present: warm, dry, intact, normal color. 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 Lungs are clear. Diaphragm is normal. Bony thorax is normal. There are chest leads. Impression by Dr. Colmenares shows normal chest. No change. MDM: 61 year-old female patient presented to the emergency department today for evaluation of chest pressure, sternal tenderness, and headache. Chest pressure has been present for over 24 hours. Physical examination did reveal some chest wall tenderness over the sternum. Lungs are clear to auscultation with good air movement. Labs reviewed and are unremarkable, d-dimer is negative, troponin negative, BNP negative. Chest x-ray showed no acute cardiopulmonary process. Patient was bradycardic in the 40s during her stay here. She does take metoprolol at home. She reports that her car escort is aware of her low heart rate has been discussing pacemaker. Patient is hemodynamically stable. Her blood pressure is stable. She is not dizzy. I did discuss findings with the patient. She'll be discharged home at this time to follow-up with her primary care physician and her car escort for further evaluation. Return parameters discussed in detail. She is instructed to return here immediately for any new, worsening, or concerning symptoms. She verbalizes understanding and agrees with this plan. Disposition Clinical Impression: Chest pain, Headache Disposition: HOME SELF-CARE Condition: Good Instructions: Chest Pain (ED), Acute Headache (ED) Additional Instructions: Follow-up with your primary care physician or car escort as soon as possible. Take your home medications only as directed. Return here immediately for any new, worsening, or concerning symptoms. Referrals: Manolo Hackett MD [Primary Care Provider] - 1-2 days Time of Disposition: 01:11
[2017-06-22 23:45] LABS: Basophils # (A) 0.1 k/uL (0-0.2); Basophils % (A) 1 %; Eosinophils # (A) 0.3 k/uL (0-0.7); Eosinophils % (A) 3 %; HCT 39.2 % (34.0-46.0); HGB 12.7 gm/dL (11.4-16.0); Lymphocytes # (A) 2.5 k/uL (1.0-4.8); Lymphocytes % (A) 27 %; MCH 28.9 pg (25.0-35.0); MCHC 32.5 g/dL (31.0-37.0); Mean Platelet Volume 7.4; Monocytes # (A) 0.5 k/uL (0-1.0); Monocytes % (A) 5 %; Neutrophils % (A) 63 %; Platelet Count 285 k/uL (150-450); RBC 4.41 m/uL (3.80-5.40); WBC 9.4 k/uL (3.8-10.6)
--- NOTE | 2017-06-22 23:50 | XR ---
EXAMINATION TYPE: XR chest 2V DATE OF EXAM: 06/22/2017 COMPARISON: 06/13/2017 HISTORY: Short of breath TECHNIQUE: Frontal and lateral views of the chest are obtained. FINDINGS: Heart and mediastinum are normal. Lungs are clear. Diaphragm is normal. Bony thorax is nor mal. There are chest leads. IMPRESSION: Normal chest. No change.
[2017-06-22 23:58] LABS: D-Dimer 0.35 mg/L FEU (<0.60); INR 1.1 (<1.2); Partial Thromboplastin Time 22.4 sec (22.0-30.0); Prothrombin Time 10.3 sec (9.0-12.0)
[2017-06-23 00:03] LABS: ALT 36 U/L (9-52); AST 22 U/L (14-36); Albumin 4.2 g/dL (3.5-5.0); Alkaline Phosphatase 98 U/L (38-126); Anion Gap 11 mmol/L; Blood Urea Nitrogen 12 mg/dL (7-17); Calcium 10.1 mg/dL (8.4-10.2); Carbon Dioxide 28 mmol/L (22-30); Chloride 104 mmol/L (98-107); Glucose 85 mg/dL (74-99); Potassium 3.7 mmol/L (3.5-5.1); Sodium 143 mmol/L (137-145); Total Bilirubin 0.5 mg/dL (0.2-1.3); Total Protein 7.3 g/dL (6.3-8.2)
[2017-06-23 00:10] LABS: Creatine Kinase 44 U/L (30-135)
[2017-06-23 00:23] LABS: Creatine Kinase MB 0.4 ng/mL (0.0-2.4); Troponin I <0.012 ng/mL (0.000-0.034)
[2017-06-23 00:49] VITALS: BP 153/67; PULSE 47; RESP 18; TEMP 97
== END 2017-06-23 01:19 | disposition home or self-care (01) ==
LOC: EC 22:44
DX: R07.89 Other chest pain (principal); R51 Headache; R11.0 Nausea; R06.02 Shortness of breath; R00.1 Bradycardia, unspecified; E78.5 Hyperlipidemia, unspecified; I25.10 Atherosclerotic heart disease of native coronary artery without angina pectoris; I10 Essential (primary) hypertension; M19.90 Unspecified osteoarthritis, unspecified site; F41.9 Anxiety disorder, unspecified; Z95.5 Presence of coronary angioplasty implant and graft; Z87.891 Personal history of nicotine dependence; Z79.82 Long term (current) use of aspirin; Z79.899 Other long term (current) drug therapy
CPT/HCPCS: 36415; 71046; 80053; 82550; 82553; 83735; 83880; 84484; 85025; 85379; 85610; 85730; 93005; 99285

== ENCOUNTER 2017-07-10 10:23 | Observation (INO) | payer MEDICARE ==
[2017-07-10] MEDS ORDERED: NITROGLYCERIN OINT 1 INCH/GM PACKET TOPICAL STA (10:33)
[2017-07-10] MEDS ORDERED: ASPIRIN 81 MG PO STA (10:33)
--- NOTE | 2017-07-10 10:35 | ED ---
General Adult HPI - General Chief complaint: Chest Pain Stated complaint: Chest pain Time Seen by Provider: 07/10/17 10:26 Source: patient, RN notes reviewed Mode of arrival: EMS Limitations: no limitations - History of Present Illness Initial comments: Patient is a pleasant 61-year-old female presenting to the emergency Department with chest discomfort. Symptoms started a few days ago when they took her off of her beta rachel. Patient has had similar symptoms 4-5 times previously and they have is continued her beta rachel. Patient states she does not feel anxious. Symptoms at this time have essentially resolved. Symptoms are exertional. Patient has discomfort in her chest with associated dyspnea and nausea and sweating. - Related Data Home Medications Medication Instructions Recorded Confirmed Aspirin 81 mg PO DAILY 05/04/17 07/10/17 Atorvastatin [Lipitor] 80 mg PO HS 05/27/17 07/10/17 HYDROcodone/APAP 7.5-325MG [[place] 1 tab PO DAILY PRN 07/10/17 07/10/17 7.5-325] busPIRone HCl [Buspar] 5 mg PO TID PRN 07/10/17 07/10/17 Previous Rx's Medication Instructions Recorded Nitroglycerin Sl Tabs [Nitrostat] 0.4 mg SUBLINGUAL Q5M PRN #20 tab 05/22/17 Ticagrelor [Brilinta] 90 mg PO BID #60 tab 05/30/17 Allergies Allergy/AdvReac Type Severity Reaction Status Date / Time adhesive tape AdvReac SKIN TEAR Verified 07/10/17 10:41 Review of Systems ROS Statement: Those systems with pertinent positive or pertinent negative responses have been documented in the HPI. ROS Other: All systems not noted in ROS Statement are negative. Constitutional: Denies: fever Eyes: Denies: eye pain ENT: Denies: ear pain Respiratory: Reports: dyspnea. Denies: cough Cardiovascular: Reports: chest pain, palpitations Endocrine: Denies: fatigue Gastrointestinal: Denies: abdominal pain Genitourinary: Denies: dysuria Musculoskeletal: Denies: back pain Skin: Denies: rash Neurological: Denies: headache Psychiatric: Denies: anxiety Past Medical History Past Medical History: Atrial Fibrillation, Chest Pain / Angina, GERD/Reflux, Hyperlipidemia, Hypertension, Osteoarthritis (OA) Additional Past Medical History / Comment(s): Low back pain, DDD, PILI SCIATIC NERVE PAIN, unsure of A-fib but states having rapid heart rate, lung mass History of Any Multi-Drug Resistant Organisms: None Reported Past Surgical History: Heart Catheterization With Stent, Joint Replacement Additional Past Surgical History / Comment(s): Total L/R hip arthroplasty, ECTOPIC PREG - LT SALPINGECTOMY. Past Anesthesia/Blood Transfusion Reactions: No Reported Reaction Additional Past Anesthesia/Blood Transfusion Reaction / Comment(s): after hip replacement last time had very slow pulse Date of Last Stent Placement:: 05-21-2017 Past Psychological History: Anxiety Smoking Status: Former smoker Past Alcohol Use History: None Reported Past Drug Use History: None Reported - Past Family History Mother Family Medical History: Cancer Additional Family Medical History / Comment(s): Pancreatic with mets. Mother at age 68yrs. Father Family Medical History: Cancer Additional Family Medical History / Comment(s): Small cell lung carcinoma. General Exam Limitations: no limitations General appearance: alert, in no apparent distress Head exam: Present: atraumatic Eye exam: Present: normal appearance, PERRL ENT exam: Present: normal oropharynx Neck exam: Present: normal inspection Respiratory exam: Present: normal lung sounds bilaterally. Absent: chest wall tenderness Cardiovascular Exam: Present: normal rhythm, bradycardia Expanded Peripheral pulses: 2+: Radial (R), Radial (L), Posterior Tibialis (R), Posterior Tibialis (L) GI/Abdominal exam: Present: soft. Absent: distended, tenderness Extremities exam: Present: normal inspection. Absent: pedal edema, calf tenderness Neurological exam: Present: alert Psychiatric exam: Present: normal affect, normal mood Skin exam: Present: normal color Course Vital Signs 07/10/17 10:26 Temperature 97.0 F L Pulse Rate 52 L Respiratory 17 Rate Blood Pressure 189/86 O2 Sat by Pulse 100 Oximetry EKG Findings - EKG Comments: EKG Findings:: Sinus bradycardia 47. DC 156. QRS 86. QT 466. QTc 412. Normal axis. Normal QRS. T wave inversion V1 through V4. Medical Decision Making - Medical Decision Making Patient reevaluated and resting comfortably in bed. Patient updated on results and plan. Heart rate remains between 46 and 48. Case discussed in detail with Dr. Correa, who will admit for Dr. Babcock. Cardiology will be consult. - Lab Data Result diagrams: 07/10/17 10:45 07/10/17 10:45 Lab Results 07/10/17 07/10/17 07/10/17 Range/Units 10:45 10:45 10:45 WBC 7.5 (3.8-10.6) k/uL RBC 4.44 (3.80-5.40) m/uL Hgb 12.8 (11.4-16.0) gm/dL Hct 38.6 (34.0-46.0) % MCV 87.0 (80.0-100.0) fL MCH 28.8 (25.0-35.0) pg MCHC 33.1 (31.0-37.0) g/dL RDW 12.9 (11.5-15.5) % Plt Count 274 (150-450) k/uL Neutrophils % 79 % Lymphocytes % 13 % Monocytes % 5 % Eosinophils % 2 % Basophils % 0 % Neutrophils # 5.9 (1.3-7.7) k/uL Lymphocytes # 1.0 (1.0-4.8) k/uL Monocytes # 0.4 (0-1.0) k/uL Eosinophils # 0.1 (0-0.7) k/uL Basophils # 0.0 (0-0.2) k/uL PT (9.0-12.0) sec INR (<1.2) APTT (22.0-30.0) sec Sodium 143 (137-145) mmol/L Potassium 4.0 (3.5-5.1) mmol/L Chloride 107 (98-107) mmol/L Carbon Dioxide 23 (22-30) mmol/L Anion Gap 13 mmol/L BUN 10 (7-17) mg/dL Creatinine 0.80 (0.52-1.04) mg/dL Est GFR (CKD-EPI)AfAm >90 (>60 ml/min/1.73 sqM) Est GFR (CKD-EPI)NonAf 81 (>60 ml/min/1.73 sqM) Glucose 93 (74-99) mg/dL Calcium 9.1 (8.4-10.2) mg/dL Magnesium 2.0 (1.6-2.3) mg/dL Total Bilirubin 0.7 (0.2-1.3) mg/dL AST 25 (14-36) U/L ALT 33 (9-52) U/L Alkaline Phosphatase 94 (38-126) U/L Total Creatine Kinase 44 (30-135) U/L CK-MB (CK-2) 0.5 (0.0-2.4) ng/mL CK-MB (CK-2) Rel Index 1.1 Troponin I <0.012 (0.000-0.034) ng/mL NT-Pro-B Natriuret Pep pg/mL Total Protein 6.8 (6.3-8.2) g/dL Albumin 3.9 (3.5-5.0) g/dL 07/10/17 07/10/17 Range/Units 10:45 10:45 WBC (3.8-10.6) k/uL RBC (3.80-5.40) m/uL Hgb (11.4-16.0) gm/dL Hct (34.0-46.0) % MCV (80.0-100.0) fL MCH (25.0-35.0) pg MCHC (31.0-37.0) g/dL RDW (11.5-15.5) % Plt Count (150-450) k/uL Neutrophils % % Lymphocytes % % Monocytes % % Eosinophils % % Basophils % % Neutrophils # (1.3-7.7) k/uL Lymphocytes # (1.0-4.8) k/uL Monocytes # (0-1.0) k/uL Eosinophils # (0-0.7) k/uL Basophils # (0-0.2) k/uL PT 10.5 (9.0-12.0) sec INR 1.1 (<1.2) APTT 25.1 (22.0-30.0) sec Sodium (137-145) mmol/L Potassium (3.5-5.1) mmol/L Chloride (98-107) mmol/L Carbon Dioxide (22-30) mmol/L Anion Gap mmol/L BUN (7-17) mg/dL Creatinine (0.52-1.04) mg/dL Est GFR (CKD-EPI)AfAm (>60 ml/min/1.73 sqM) Est GFR (CKD-EPI)NonAf (>60 ml/min/1.73 sqM) Glucose (74-99) mg/dL Calcium (8.4-10.2) mg/dL Magnesium (1.6-2.3) mg/dL Total Bilirubin (0.2-1.3) mg/dL AST (14-36) U/L ALT (9-52) U/L Alkaline Phosphatase (38-126) U/L Total Creatine Kinase (30-135) U/L CK-MB (CK-2) (0.0-2.4) ng/mL CK-MB (CK-2) Rel Index Troponin I (0.000-0.034) ng/mL NT-Pro-B Natriuret Pep 72 pg/mL Total Protein (6.3-8.2) g/dL Albumin (3.5-5.0) g/dL - Radiology Data Radiology results: image reviewed (Chest x-ray shows no acute process) Disposition Clinical Impression: Chest pain, Bradycardia Disposition: ADMITTED IP TO THIS HOSP Referrals: Manolo Hackett MD [Primary Care Provider] - 1-2 days Decision Time: 13:49
[2017-07-10 11:11] LABS: Basophils % (A) 0 %; Eosinophils # (A) 0.1 k/uL (0-0.7); Eosinophils % (A) 2 %; HCT 38.6 % (34.0-46.0); HGB 12.8 gm/dL (11.4-16.0); Lymphocytes % (A) 13 %; MCH 28.8 pg (25.0-35.0); MCHC 33.1 g/dL (31.0-37.0); Mean Platelet Volume 7.1; Monocytes # (A) 0.4 k/uL (0-1.0); Monocytes % (A) 5 %; Neutrophils # (A) 5.9 k/uL (1.3-7.7); Neutrophils % (A) 79 %; Platelet Count 274 k/uL (150-450); RBC 4.44 m/uL (3.80-5.40); RDW 12.9 % (11.5-15.5); WBC 7.5 k/uL (3.8-10.6)
[2017-07-10 11:23] LABS: ALT 33 U/L (9-52); AST 25 U/L (14-36); Albumin 3.9 g/dL (3.5-5.0); Alkaline Phosphatase 94 U/L (38-126); Anion Gap 13 mmol/L; Blood Urea Nitrogen 10 mg/dL (7-17); Calcium 9.1 mg/dL (8.4-10.2); Carbon Dioxide 23 mmol/L (22-30); Chloride 107 mmol/L (98-107); Glucose 93 mg/dL (74-99); Sodium 143 mmol/L (137-145); Total Bilirubin 0.7 mg/dL (0.2-1.3); Total Protein 6.8 g/dL (6.3-8.2)
[2017-07-10 11:37] LABS: Creatine Kinase 44 U/L (30-135)
[2017-07-10 11:47] LABS: INR 1.1 (<1.2); Partial Thromboplastin Time 25.1 sec (22.0-30.0); Prothrombin Time 10.5 sec (9.0-12.0)
[2017-07-10 11:50] LABS: Creatine Kinase MB 0.5 ng/mL (0.0-2.4); Troponin I <0.012 ng/mL (0.000-0.034)
--- NOTE | 2017-07-10 12:48 | XR ---
EXAMINATION TYPE: XR chest 2V DATE OF EXAM: 07/10/2017 COMPARISON: 06/22/2017 TECHNIQUE: PA and lateral views submitted. HISTORY: Irregular heartbeat FINDINGS: The lungs are clear and there is no pneumothorax, pleural effusion, or focal pneumonia. Hypertrophi c and degenerative change of the spine. Suggestion of previous coronary artery stent. Correlate clini dov. Hyperinflation suggests COPD. IMPRESSION: 1. No acute process.
[2017-07-10] MEDS ORDERED: NITROGLYCERIN SL TABS 0.4 MG TAB SUBLINGUAL PRN ×2 (13:49→15:35)
[2017-07-10] MEDS ORDERED: busPIRone HCl 5 MG TAB PO PRN (15:35)
[2017-07-10] MEDS ORDERED: LORazepam 0.5 MG TAB PO PRN (15:42)
--- NOTE | 2017-07-10 15:56 | P.HPIM ---
History of Present Illness H&P Date: 07/10/17 Chief Complaint: Chest discomfort Patient is a 61-year-old female with a known history of coronary artery disease and stent placement 3 with recent admission in May 2017, anxiety and depression and multiple other medical problems came to ER with complaints of chest discomfort along with palpitations. Patient says that her heart rate is going up and down at home some associated chest pain, dizziness. Patient does have nausea and diaphoresis along with chest tightness. Patient did have these symptoms before. No fever no chills. Patient does have cough without any sputum production. Patient was seen at cardiology's office recently on and a beta rachel was stopped due to bradycardia. Otherwise denied any abdominal pain. No headache. No orthopnea no PND. No leg swelling. Currently denied any chest pressure. Patient says that she is ready anxious now and requesting Ativan 1 mg. EKG showed sinus bradycardia Chest x-ray showed no acute cardiopulmonary process Troponin 1 negative Last echo on 05/29/2017 showed left ventricular systolic function is mildly impaired with ejection fraction 45-50%. Sinus rhythm with extra systolic beats Review of Systems Constitutional: Patient denies any fever or chills . No generalized weakness or weight loss. Abdomen: Patient denied nausea vomiting and diarrhea and abdominal pain. Cardiovascular: Patient denies any chest pain or short of breath no palpitations. Respiratory: patient denied any cough is from production. No shortness of breath Neurologic: Patient denied any numbness or tingling headache. Musculoskeletal: Patient denies any complaints of joint swelling or deformity. Skin: Negative Psychiatric: Anxious Endocrine: No heat or cold intolerance. No recent weight gain. Genitourinary: No dysuria or hematuria. All other 14 point ROS negative except the above Past Medical History Past Medical History: Atrial Fibrillation, Chest Pain / Angina, GERD/Reflux, Hyperlipidemia, Hypertension, Osteoarthritis (OA) Additional Past Medical History / Comment(s): Low back pain, DDD, PILI SCIATIC NERVE PAIN, unsure of A-fib but states having rapid heart rate, lung mass History of Any Multi-Drug Resistant Organisms: None Reported Past Surgical History: Heart Catheterization With Stent, Joint Replacement Additional Past Surgical History / Comment(s): Total L/R hip arthroplasty, ECTOPIC PREG - LT SALPINGECTOMY. Past Anesthesia/Blood Transfusion Reactions: No Reported Reaction Additional Past Anesthesia/Blood Transfusion Reaction / Comment(s): after hip replacement last time had very slow pulse Date of Last Stent Placement:: 05-21-2017 Past Psychological History: Anxiety Smoking Status: Former smoker Past Alcohol Use History: None Reported Past Drug Use History: None Reported - Past Family History Mother Family Medical History: Cancer Additional Family Medical History / Comment(s): Pancreatic with mets. Mother at age 68yrs. Father Family Medical History: Cancer Additional Family Medical History / Comment(s): Small cell lung carcinoma. Medications and Allergies Home Medications Medication Instructions Recorded Confirmed Type Aspirin 81 mg PO DAILY 05/04/17 07/10/17 History Nitroglycerin Sl Tabs [Nitrostat] 0.4 mg SUBLINGUAL Q5M PRN #20 tab 05/22/1704/17 Rx Atorvastatin [Lipitor] 80 mg PO HS 05/27/17 07/10/17 History Ticagrelor [Brilinta] 90 mg PO BID #60 tab 05/30/17 07/10/17 Rx HYDROcodone/APAP 7.5-325MG [[employer] 1 tab PO DAILY PRN 07/10/17 07/10/17 History 7.5-325] busPIRone HCl [Buspar] 5 mg PO TID PRN 07/10/17 07/10/17 History Allergies Allergy/AdvReac Type Severity Reaction Status Date / Time adhesive tape AdvReac SKIN TEAR Verified 07/10/17 10:41 Physical Exam Vitals: Vital Signs Temp Pulse Resp BP Pulse Ox 07/10/17 10:26 97.0 F L 52 L 17 189/86 100 Intake and Output 07/10/17 07/10/17 07/10/17 06:59 14:59 22:59 Other: Weight 72.575 kg Patient Weight 07/11/17 06:59 Weight 72.575 kg PHYSICAL EXAMINATION: Patient is lying in the bed comfortably, no acute distress, awake alert and oriented.. HEENT: Normocephalic. Neck is supple. Pupils reactive. Nostrils clear. Oral cavity is moist. Ears reveal no drainage. Neck reveals no JVD, carotid bruits, or thyromegaly. CHEST EXAMINATION: Trachea is central. Symmetrical expansion. Lung cervantes clear to auscultation and percussion. CARDIAC: Normal S1, S2 with no gallops. No murmurs . Sinus bradycardia ABDOMEN: Soft. Bowel sounds normal. No organomegaly. No abdominal bruits. Extremities: reveal no edema. No clubbing or cyanosis Neurologically awake, alert, oriented x3 with well-coordinated movements. No focal deficits noted Skin: No rash or skin lesions. Psychiatric: Coperative. Nonsuicidal anxious otherwise. Musculoskeletal: No joint swelling or deformity. Normal range of motion. Results CBC & Chem 7: 07/10/17 10:45 07/10/17 10:45 Assessment and Plan Assessment: Palpitations. Rule out arrhythmia Symptomatic Bradycardia Coronary artery disease with recent stent placement to RCA circumflex and diagonal branch GERD Anxiety Chronic hemorrhoids Osteoarthritis of multiple joints Hypertension. Hyperlipidemia Mildly reduced left ventricle systolic function with ejection fraction 45% to 50 % as per TTE on 05/29/2017 Plan: Patient will be continued on telemetry monitoring. Continue to hold metoprolol. Continue with aspirin, statins and brillanta. We'll check TSH level. Cardiology was consulted for further evaluation. Continue with home medications and further recommendations based on the clinical course. We will continue to follow closely. Time with Patient: Greater than 30
[2017-07-10] MEDS ORDERED: LORazepam 1 MG TAB PO PRN (16:27)
[2017-07-10 18:04] LABS: Creatine Kinase 42 U/L (30-135)
[2017-07-10 18:15] LABS: Creatine Kinase MB 0.5 ng/mL (0.0-2.4); Troponin I <0.012 ng/mL (0.000-0.034)
[2017-07-10] MEDS: NITROGLYCERIN OINT 1 INCH/GM PACKET TOPICAL SCH (19:05)
[2017-07-10] MEDS: TICAGRELOR 90 MG TAB PO SCH (19:50)
[2017-07-10] MEDS: HYDROcodone/APAP 7.5-325MG 1 EACH TAB PO PRN (19:53)
[2017-07-10 20:07] VITALS: BMI 27.3
[2017-07-10] MEDS ORDERED: ATORVASTATIN 80 MG TAB PO SCH (21:00)
[2017-07-10 23:30] LABS: Creatine Kinase 45 U/L (30-135)
[2017-07-10 23:43] LABS: Creatine Kinase MB 0.4 ng/mL (0.0-2.4); Troponin I <0.012 ng/mL (0.000-0.034)
[2017-07-11] MEDS: NITROGLYCERIN OINT 1 INCH/GM PACKET TOPICAL SCH ×3 (00:23→12:30)
[2017-07-11 03:32] LABS: Cholesterol 119 mg/dL (<200); HDL Cholesterol 60 mg/dL (40-60); LDL Cholesterol,Calculated 45 mg/dL (0-99); Triglycerides 72 mg/dL (<150)
[2017-07-11] MEDS ORDERED: LORazepam 1 MG TAB PO PRN (06:00)
[2017-07-11] MEDS ORDERED: ASPIRIN 81 MG PO SCH (09:00)
[2017-07-11] MEDS ORDERED: ASPIRIN 325 MG TAB PO SCH (09:00)
[2017-07-11] MEDS: TICAGRELOR 90 MG TAB PO SCH (11:09)
[2017-07-11 12:16] VITALS: BP 133/82; PULSE 77; RESP 16; TEMP 97.9
[2017-07-11] MEDS: HYDROcodone/APAP 7.5-325MG 1 EACH TAB PO PRN (12:29)
--- NOTE | 2017-07-11 12:41 | P.CRDCN ---
History of Present Illness Consult date: 07/11/17 History of present illness: Mrs. Adorno is a pleasant 61-year-old female past medical history significant for coronary artery disease s/p recent stenting in May, hypertension, dyslipidemia, gastroesophageal reflux disease, anxiety and former tobacco use. In May she underwent successful stenting of circumflex artery, RCA and first diagonal branch of LAD. She follows with Dr. Granados in the office. We have been asked to see her in consultation for complaints of chest pain and palpitations. She states her concerns are more for palpitations since her beta rachel has been stopped a few days ago. She was just discharged from [facility] for similar complaints. She was seen there by Dr. Hodgson. During that visit her beta rachel was discontinued secondary to bradycardia. Her heart rate was down in the 30's she states. Since being discharged from the hospital she continues to feel palpitations. She had worn an event monitor in the past that has been unremarkable. Telemetry tracings here have also been unremarkable. Heart rate fluctuates from 42 while sleeping and goes up to 57. At the time of my exam she is chest pain free. EKG reveals sinus bradycardia heart rate 47 with T-wave inversion in precordial leads. This is consistent with previous EKG's. Chest xray is negative for an acute cardiopulmonary process. Laboratory data reviewed, hgb 12.8, plt 274, potassium 4.0, magnesium 2.0, creatinine 0.8, tsh 0.812, LDL 45, cardiac enzymes negative x3. Current cardiac medications include brillinta 90mg BID, lipitor 80mg daily and aspirin 81 mg daily. Review of Systems At the time my exam: CONSTITUTIONAL: Denies fever. Denies chills. EYES: Denies blurred vision. Denies vision changes. Denies eye pain. EARS, NOSE, MOUTH & THROAT: Denies headache. Denies sore throat. Denies ear pain. CARDIOVASCULAR: Denies chest pain. Denies shortness of breath. Denies orthopnea. Denies PND. Complains of palpitations. RESPIRATORY: Denies cough. GASTROINTESTINAL: Denies abdominal pain. Denies diarrhea. Denies constipation. Denies nausea. Denies vomiting. MUSCULOSKELETAL: Denies myalgias. INTEGUMENTARY: Denies pruitis. Denies rash. NEUROLOGIC: Denies numbness. Denies tingling. Denies weakness. PSYCHIATRIC: Denies anxiety. Denies depression. ENDOCRINE: Denies fatigue. Denies weight change. Denies polydipsia. Denies polyurina. GENITOURINARY: Denies burning, hematuria or urgency with micturation. HEMATOLOGIC: Denies history of anemia. Denies bleeding. Past Medical History Past Medical History: Atrial Fibrillation, Chest Pain / Angina, GERD/Reflux, Hyperlipidemia, Hypertension, Osteoarthritis (OA) Additional Past Medical History / Comment(s): Low back pain, DDD, PILI SCIATIC NERVE PAIN, unsure of A-fib but states having rapid heart rate, lung lesion sees Dr. Reza History of Any Multi-Drug Resistant Organisms: None Reported Past Surgical History: Heart Catheterization With Stent, Joint Replacement Additional Past Surgical History / Comment(s): Total L/R hip arthroplasty, ECTOPIC PREG - LT SALPINGECTOMY. Past Anesthesia/Blood Transfusion Reactions: No Reported Reaction Additional Past Anesthesia/Blood Transfusion Reaction / Comment(s): after hip replacement last time had very slow pulse Date of Last Stent Placement:: 05-21-2017 Past Psychological History: Anxiety Additional Psychological History / Comment(s): Pt resides alone. Pt normally is independent with her ADls. She drives a car. Smoking Status: Former smoker Past Alcohol Use History: None Reported Additional Past Alcohol Use History / Comment(s): quit smoking November 2016 months ago, started smoking at age of 13, smoked 1ppd Past Drug Use History: None Reported - Past Family History Mother Family Medical History: Cancer Additional Family Medical History / Comment(s): Pancreatic with mets. Mother at age 68yrs. Father Family Medical History: Cancer Additional Family Medical History / Comment(s): Small cell lung carcinoma. Medications and Allergies Home Medications Medication Instructions Recorded Confirmed Type Aspirin 81 mg PO DAILY 05/04/17 07/10/17 History Nitroglycerin Sl Tabs [Nitrostat] 0.4 mg SUBLINGUAL Q5M PRN #20 tab 05/22/1704/17 Rx Atorvastatin [Lipitor] 80 mg PO HS 05/27/17 07/10/17 History Ticagrelor [Brilinta] 90 mg PO BID #60 tab 05/30/17 07/10/17 Rx HYDROcodone/APAP 7.5-325MG [[place] 1 tab PO DAILY PRN 07/10/17 07/10/17 History 7.5-325] busPIRone HCl [Buspar] 5 mg PO TID PRN 07/10/17 07/10/17 History LORazepam [Ativan] 1 mg PO BID PRN 07/11/17 07/11/17 History Allergies Allergy/AdvReac Type Severity Reaction Status Date / Time adhesive tape AdvReac SKIN TEAR Verified 07/10/17 10:41 Physical Exam Vitals: Vital Signs Temp Pulse Pulse Resp BP BP Pulse Ox 07/11/17 08:00 98.1 F 57 L 18 110/68 97 07/11/17 04:00 98.2 F 56 L 16 115/71 97 07/11/17 03:53 43 L 16 07/10/17 23:51 98.2 F 53 L 16 104/69 96 07/10/17 23:45 61 16 07/10/17 20:00 48 L 16 07/10/17 19:24 97.9 F 57 L 16 161/73 100 07/10/17 18:07 97.7 F 57 L 16 131/62 98 07/10/17 16:24 54 L 18 127/65 98 Intake and Output 07/10/17 07/11/17 07/11/17 22:59 06:59 14:59 Other: Voiding Method Toilet Toilet Toilet # Voids 1 Weight 72.1 kg Blood pressure 133/82 heart rate 77 afebrile maintaining oxygen saturation on room air GENERAL: This is a 61-year-old patient female in no apparent distress at the time of my examination. HEENT: Head is atraumatic, normocephalic. Pupils are equal, round. Sclerae anicteric. Conjunctivae are clear. Mucous membranes of the mouth are moist. Neck is supple. There is no jugular venous distention. No carotid bruit is heard. LUNGS: Clear to auscultation no wheezes, rales or rhonchi. No chest wall tenderness is noted on palpation or with deep breathing. HEART: Regular rate and rhythm without murmurs, rubs or gallops. S1 and S2 heard. ABDOMEN: Soft, nontender. Bowel sounds are heard. No organomegaly noted. EXTREMITIES: No evidence of peripheral edema and no calf tenderness noted. VASCULAR: Radial and dorsalis pedis pulses palpated, no evidence of clubbing. NEUROLOGIC: Patient is awake, alert and oriented x3. Results 07/10/17 10:45 07/10/17 10:45 Cardiac Enzymes 07/10/17 07/10/17 07/10/17 Range/Units 10:45 17:21 22:40 CK-MB (CK-2) 0.5 0.5 0.4 (0.0-2.4) ng/mL Troponin I <0.012 <0.012 <0.012 (0.000-0.034) ng/mL Lipids 07/10/17 Range/Units 17:21 Triglycerides 72 (<150) mg/dL Cholesterol 119 (<200) mg/dL HDL Cholesterol 60 (40-60) mg/dL Current Medications Generic Name Dose Route Start Last Admin Trade Name Freq PRN Reason Stop Dose Admin Hydrocodone Bitart/Acetaminophen 1 each 07/10/17 15:35 07/10/17 19:53 [place] 7.5-325 PO 1 each DAILY PRN Administration Pain Aspirin 81 mg 07/11/17 09:00 07/11/17 11:09 Aspirin PO 81 mg DAILY DORIS Administration Atorvastatin Calcium 80 mg 07/10/17 21:00 07/10/17 19:50 Lipitor PO 80 mg HS DORIS Administration Buspirone HCl 5 mg 07/10/17 15:35 Buspar PO TID PRN Anxiety Lorazepam 1 mg 07/11/17 06:00 07/11/17 06:13 Ativan PO 1 mg BID PRN Administration Anxiety Nitroglycerin 0.5 inch 07/10/17 18:00 07/11/17 04:43 Nitro-Bid Oint TOPICAL Not Given Q6HR [facility] Nitroglycerin 0.4 mg 07/10/17 13:49 Nitrostat SUBLINGUAL Q5M PRN Chest Pain Ticagrelor 90 mg 07/10/17 21:00 07/11/17 11:09 Brilinta PO 90 mg BID DORIS Administration Intake and Output 07/10/17 07/11/17 07/11/17 22:59 06:59 14:59 Other: Voiding Method Toilet Toilet Toilet # Voids 1 Weight 72.1 kg 07/10/17 10:45 07/10/17 10:45 Assessment and Plan Assessment: ASSESSMENT 1. Palpitations 2. Known coronary artery disease with recent stenting of circumflex, RCA and diagonal branch of LAD 3. Hypertension 4. Dyslipidemia 5. Former tobacco use 6. Anxiety PLAN TSH was checked and is normal, cardiac enzymes are negative and no symptoms of unstable angina. Telemetry tracings have been unremarkable. Recently taken off her low dose beta rachel secondary to intolerance and bradycardia. Continue with brillinta, atorvastatin and aspirin as was previously ordered. Stable from cardiac perspective. Follow up with Dr. Granados. Nurse Practitioner note has been reviewed, I agree with a documented findings and plan of care. Patient was seen and examined.
--- NOTE | 2017-07-18 13:27 | P.DS ---
Providers Date of admission: 07/10/17 13:49 Expected date of discharge: 07/11/17 Attending physician: Emily Correa Consults: 07/10/17 13:49 Consult Physician Urgent Consulting Provider: Rajeev Hodgson Consult Reason/Comments: cp, bradycardia Do you want consulting provider notified?: Yes Primary care physician[facility] Course: Discharge diagnosis Palpitations. Ruled out arrhythmia. No arrhythmias noted in the telemetry Symptomatic Bradycardia. DC'd beta blockers Coronary artery disease with recent stent placement to RCA circumflex and diagonal branch GERD Anxiety Chronic hemorrhoids Osteoarthritis of multiple joints Hypertension. Hyperlipidemia Mildly reduced left ventricle systolic function with ejection fraction 45% to 50 % as per TTE on 05/29/2017 Hospital course Patient is a 61-year-old female with a known history of coronary artery disease and stent placement 3 with recent admission in May 2017, anxiety and depression and multiple other medical problems came to ER with complaints of chest discomfort along with palpitations. Patient says that her heart rate is going up and down at home some associated chest pain, dizziness. Patient does have nausea and diaphoresis along with chest tightness. Patient did have these symptoms before. No fever no chills. Patient does have cough without any sputum production. Patient was seen at cardiology's office recently on and a beta rachel was stopped due to bradycardia. Otherwise denied any abdominal pain. No headache. No orthopnea no PND. No leg swelling. Currently denied any chest pressure. Patient says that she is ready anxious now and requesting Ativan 1 mg. EKG showed sinus bradycardia Chest x-ray showed no acute cardiopulmonary process Troponin 1 negative Last echo on 05/29/2017 showed left ventricular systolic function is mildly impaired with ejection fraction 45-50%. Sinus rhythm with extra systolic beats. Patient was continued on telemetry monitoring. Continue to hold metoprolol. Continue with aspirin, statins and brillanta. Normal TSH level. Cardiology was consulted for further evaluation. Otherwise patient is symptomatically improved. Stable to be discharged home. PHYSICAL EXAMINATION: Patient is lying in the bed comfortably, no acute distress, awake alert and oriented.. HEENT: Normocephalic. Neck is supple. Pupils reactive. Nostrils clear. Oral cavity is moist. Ears reveal no drainage. Neck reveals no JVD, carotid bruits, or thyromegaly. CHEST EXAMINATION: Trachea is central. Symmetrical expansion. Lung cervantes clear to auscultation and percussion. CARDIAC: Normal S1, S2 with no gallops. No murmurs ABDOMEN: Soft. Bowel sounds normal. No organomegaly. No abdominal bruits. Extremities: reveal no edema. No clubbing or cyanosis Neurologically awake, alert, oriented x3 with well-coordinated movements. No focal deficits noted Skin: No rash or skin lesions. Psychiatric: Coperative. Nonsuicidal Musculoskeletal: No joint swelling or deformity. Normal range of motion. Vital Signs 07/10/17 07/10/17 07/10/17 10:26 16:24 18:07 Temperature 97.0 F L 97.7 F Pulse Rate 52 L 54 L 57 L Pulse Rate [ Left] Respiratory 17 18 16 Rate Blood Pressure 189/86 127/65 131/62 Blood Pressure [Left Arm] O2 Sat by Pulse 100 98 98 Oximetry 07/10/17 07/10/17 07/10/17 19:24 20:00 23:45 Temperature 97.9 F Pulse Rate Pulse Rate [ 57 L 48 L 61 Left] Respiratory 16 16 16 Rate Blood Pressure Blood Pressure 161/73 [Left Arm] O2 Sat by Pulse 100 Oximetry 07/10/17 07/11/17 07/11/17 23:51 03:53 04:00 Temperature 98.2 F 98.2 F Pulse Rate Pulse Rate [ 53 L 43 L 56 L Left] Respiratory 16 16 16 Rate Blood Pressure Blood Pressure 104/69 115/71 [Left Arm] O2 Sat by Pulse 96 97 Oximetry 07/11/17 07/11/17 08:00 12:15 Temperature 98.1 F 97.9 F Pulse Rate Pulse Rate [ 57 L 77 Left] Respiratory 18 16 Rate Blood Pressure Blood Pressure 110/68 133/82 [Left Arm] O2 Sat by Pulse 97 97 Oximetry Patient Condition at Discharge: Stable Plan - Discharge Summary New Discharge Prescriptions: Continue Aspirin 81 mg PO DAILY Nitroglycerin Sl Tabs [Nitrostat] 0.4 mg SUBLINGUAL Q5M PRN #20 tab PRN Reason: Chest Pain Atorvastatin [Lipitor] 80 mg PO HS Ticagrelor [Brilinta] 90 mg PO BID #60 tab busPIRone HCl [Buspar] 5 mg PO TID PRN PRN Reason: Anxiety HYDROcodone/APAP 7.5-325MG [[place] 7.5-325] 1 tab PO DAILY PRN PRN Reason: Pain LORazepam [Ativan] 1 mg PO BID PRN PRN Reason: Anxiety Discharge Medication List Aspirin 81 mg PO DAILY 05/04/17 [History] Nitroglycerin Sl Tabs [Nitrostat] 0.4 mg SUBLINGUAL Q5M PRN #20 tab 05/22/17 [Rx ] Atorvastatin [Lipitor] 80 mg PO HS 05/27/17 [History] Ticagrelor [Brilinta] 90 mg PO BID #60 tab 05/30/17 [Rx] HYDROcodone/APAP 7.5-325MG [[place] 7.5-325] 1 tab PO DAILY PRN 07/10/17 [History] busPIRone HCl [Buspar] 5 mg PO TID PRN 07/10/17 [History] LORazepam [Ativan] 1 mg PO BID PRN 07/11/17 [History] Follow up Appointment(s)/Referral(s): Manolo Hackett MD [Primary Care Provider] - 1-2 days Rhett Granados MD [STAFF PHYSICIAN] - 1 Week Patient Instructions/Handouts: Chest Pain (GEN), Bradycardia (GEN) Discharge Disposition: HOME SELF-CARE
== END 2017-07-11 15:23 | disposition home or self-care (01) ==
LOC: EC 10:23 → 3OBS 13:49
PROVIDERS: ADMIT Hospitalist; ATTEND Hospitalist
DX: R00.2 Palpitations (principal); R00.1 Bradycardia, unspecified; I25.10 Atherosclerotic heart disease of native coronary artery without angina pectoris; I10 Essential (primary) hypertension; E78.5 Hyperlipidemia, unspecified; F41.9 Anxiety disorder, unspecified; I48.91 Unspecified atrial fibrillation; M54.30 Sciatica, unspecified side; M54.5 Low back pain; F32.9 Major depressive disorder, single episode, unspecified; R05 Cough; K21.9 Gastro-esophageal reflux disease without esophagitis; M15.9 Polyosteoarthritis, unspecified; Z95.5 Presence of coronary angioplasty implant and graft; K64.9 Unspecified hemorrhoids; Z79.02 Long term (current) use of antithrombotics/antiplatelets; Z79.82 Long term (current) use of aspirin; Z79.891 Long term (current) use of opiate analgesic; Z79.899 Other long term (current) drug therapy; Z91.048 Other nonmedicinal substance allergy status; Z87.891 Personal history of nicotine dependence; Z80.1 Family history of malignant neoplasm of trachea, bronchus and lung; Z80.0 Family history of malignant neoplasm of digestive organs
CPT/HCPCS: 36415; 93005; 83880; 80061; 80053; 84443; 82550; 82553; 83735; 84484; 85025; 85610; 85730; 71046; 99285; G0378 ×2

== ENCOUNTER 2017-07-24 00:55 | Emergency (ER) | payer MEDICARE ==
[2017-07-24 01:01] VITALS: PULSE 47; TEMP 98
[2017-07-24 01:38] LABS: Basophils # (A) 0.1 k/uL (0-0.2); Basophils % (A) 1 %; Eosinophils # (A) 0.3 k/uL (0-0.7); Eosinophils % (A) 4 %; HCT 39.2 % (34.0-46.0); HGB 13.3 gm/dL (11.4-16.0); Lymphocytes # (A) 2.8 k/uL (1.0-4.8); Lymphocytes % (A) 44 %; MCH 29.6 pg (25.0-35.0); MCV 87.1 fL (80.0-100.0); Mean Platelet Volume 7.3; Monocytes # (A) 0.4 k/uL (0-1.0); Monocytes % (A) 6 %; Neutrophils # (A) 2.8 k/uL (1.3-7.7); Neutrophils % (A) 44 %; Platelet Count 284 k/uL (150-450); RBC 4.49 m/uL (3.80-5.40); RDW 13.1 % (11.5-15.5); WBC 6.4 k/uL (3.8-10.6)
[2017-07-24] MEDS ORDERED: ALPRAZolam 0.25 MG TAB PO STA (01:41)
[2017-07-24 01:47] LABS: Partial Thromboplastin Time 24.5 sec (22.0-30.0); Prothrombin Time 10.1 sec (9.0-12.0)
--- NOTE | 2017-07-24 01:50 | XR ---
EXAMINATION TYPE: XR chest 1V portable DATE OF EXAM: 07/24/2017 COMPARISON: 07/10/2017 HISTORY: Dysrhythmia TECHNIQUE: Single frontal view of the chest is obtained. FINDINGS: Heart and mediastinum are normal. Lungs are clear. Costophrenic angles are clear. There ar e chest leads. Bony thorax is intact. IMPRESSION: Normal chest. No change.
[2017-07-24 01:57] LABS: Creatine Kinase 42 U/L (30-135)
[2017-07-24 01:59] LABS: ALT 27 U/L (9-52); AST 21 U/L (14-36); Albumin 4.4 g/dL (3.5-5.0); Alkaline Phosphatase 93 U/L (38-126); Anion Gap 14 mmol/L; Blood Urea Nitrogen 9 mg/dL (7-17); Calcium 9.9 mg/dL (8.4-10.2); Carbon Dioxide 26 mmol/L (22-30); Chloride 103 mmol/L (98-107); Glucose 91 mg/dL (74-99); Magnesium 2.2 mg/dL (1.6-2.3); Potassium 3.8 mmol/L (3.5-5.1); Sodium 143 mmol/L (137-145); Total Bilirubin 0.5 mg/dL (0.2-1.3); Total Protein 7.4 g/dL (6.3-8.2)
[2017-07-24 02:10] LABS: Creatine Kinase MB 0.5 ng/mL (0.0-2.4); Troponin I <0.012 ng/mL (0.000-0.034)
[2017-07-24 02:51] VITALS: BP 131/72; RESP 20
--- NOTE | 2017-07-24 03:21 | ED ---
Arrhythmia/Palpitations HPI - General Chief Complaint: Arrhythmia/Palpitations Stated Complaint: Weakness Time Seen by Provider: 07/24/17 01:16 Source: patient Mode of arrival: wheelchair Limitations: no limitations - History of Present Illness Initial Comments: This patient's 61-year-old woman who presents with complaint that she feels like her heart is skipping beats. The patient notes that she had recently had the dose of her beta rachel increased as she does tend to have tachycardia. Since taking the increased dose of the beta rachel she has found that her heart rate tends to be low, she feels like she misses beats, and she sometimes feels a bit lightheaded if she stands quickly. No chest pain, no dyspnea. MD Complaint: "skipped beats", palpitations -: hour(s) Context: occurred during rest - Related Data Home Medications Medication Instructions Recorded Confirmed Aspirin 81 mg PO DAILY 05/04/17 08/05/17 Atorvastatin [Lipitor] 40 mg PO HS 07/28/17 08/05/17 Clopidogrel [Plavix] 75 mg PO DAILY 07/28/17 08/05/17 Hydrocodone/Acetaminophen 0.5 tab PO BID PRN 07/29/17 08/05/17 [Hydrocodon-Acetaminoph 7.5-325] Ibuprofen [Motrin Ib] 200 mg PO Q6H PRN 08/02/17 08/05/17 LORazepam [Ativan] 0.5 mg PO BID 08/05/17 08/05/17 Allergies Allergy/AdvReac Type Severity Reaction Status Date / Time adhesive tape AdvReac SKIN TEAR Verified 08/05/17 22:13 Review of Systems ROS Statement: Those systems with pertinent positive or pertinent negative responses have been documented in the HPI. ROS Other: All systems not noted in ROS Statement are negative. Constitutional: Denies: fever, chills, weakness Respiratory: Denies: cough, dyspnea Cardiovascular: Reports: palpitations. Denies: chest pain, orthopnea, edema, syncope Gastrointestinal: Denies: abdominal pain, vomiting, diarrhea Genitourinary: Denies: dysuria, hematuria Musculoskeletal: Denies: back pain Skin: Denies: rash Neurological: Denies: headache, weakness, numbness Past Medical History Past Medical History: Atrial Fibrillation, Chest Pain / Angina, GERD/Reflux, Hyperlipidemia, Hypertension, Osteoarthritis (OA) Additional Past Medical History / Comment(s): Low back pain, DDD, PILI SCIATIC NERVE PAIN, lung lesion sees Dr. Reza History of Any Multi-Drug Resistant Organisms: None Reported Past Surgical History: Heart Catheterization With Stent, Joint Replacement Additional Past Surgical History / Comment(s): Total L/R hip arthroplasty, ECTOPIC PREG - LT SALPINGECTOMY. Past Anesthesia/Blood Transfusion Reactions: No Reported Reaction Additional Past Anesthesia/Blood Transfusion Reaction / Comment(s): after hip replacement last time had very slow pulse Date of Last Stent Placement:: 05-21-2017 Past Psychological History: Anxiety Smoking Status: Former smoker Past Alcohol Use History: None Reported Past Drug Use History: None Reported - Past Family History Mother Family Medical History: Cancer Additional Family Medical History / Comment(s): Pancreatic with mets. Mother at age 68yrs. Father Family Medical History: Cancer Additional Family Medical History / Comment(s): Small cell lung carcinoma. General Exam Limitations: no limitations General appearance: alert, in no apparent distress Head exam: Present: atraumatic, normocephalic Eye exam: Present: normal appearance. Absent: scleral icterus, conjunctival injection ENT exam: Present: normal oropharynx Neck exam: Present: normal inspection Respiratory exam: Present: normal lung sounds bilaterally. Absent: respiratory distress, wheezes, rales, rhonchi, stridor Cardiovascular Exam: Present: normal rhythm, bradycardia (Rate 52 at my exam), normal heart sounds. Absent: systolic murmur, diastolic murmur, rubs, gallop GI/Abdominal exam: Present: soft. Absent: distended, tenderness, guarding, rebound Extremities exam: Present: normal inspection, normal capillary refill. Absent: pedal edema, calf tenderness Back exam: Present: normal inspection. Absent: CVA tenderness (R), CVA tenderness (L) Neurological exam: Present: alert, oriented X3, CN II-XII intact. Absent: motor sensory deficit Skin exam: Present: warm, dry, intact, normal color. Absent: rash Course Vital Signs 07/24/17 07/24/17 00:57 02:51 Temperature 98.0 F Pulse Rate 47 L 47 L Respiratory 16 20 Rate Blood Pressure 143/68 131/72 O2 Sat by Pulse 99 97 Oximetry EKG Findings - EKG Results: EKG: interpreted by ERMD, sinus rhythm, normal axis, normal QRS, normal ST/T, no acute changes EKG shows: bradycardia (Rate proximally 43 bpm) Medical Decision Making - Lab Data Result diagrams: 07/24/17 01:10 07/24/17 01:10 Lab Results 07/24/17 07/24/17 07/24/17 Range/Units 01:10 01:10 01:10 WBC 6.4 (3.8-10.6) k/uL RBC 4.49 (3.80-5.40) m/uL Hgb 13.3 (11.4-16.0) gm/dL Hct 39.2 (34.0-46.0) % MCV 87.1 (80.0-100.0) fL MCH 29.6 (25.0-35.0) pg MCHC 34.0 (31.0-37.0) g/dL RDW 13.1 (11.5-15.5) % Plt Count 284 (150-450) k/uL Neutrophils % 44 % Lymphocytes % 44 % Monocytes % 6 % Eosinophils % 4 % Basophils % 1 % Neutrophils # 2.8 (1.3-7.7) k/uL Lymphocytes # 2.8 (1.0-4.8) k/uL Monocytes # 0.4 (0-1.0) k/uL Eosinophils # 0.3 (0-0.7) k/uL Basophils # 0.1 (0-0.2) k/uL PT (9.0-12.0) sec INR (<1.2) APTT (22.0-30.0) sec Sodium 143 (137-145) mmol/L Potassium 3.8 (3.5-5.1) mmol/L Chloride 103 (98-107) mmol/L Carbon Dioxide 26 (22-30) mmol/L Anion Gap 14 mmol/L BUN 9 (7-17) mg/dL Creatinine 0.80 (0.52-1.04) mg/dL Est GFR (CKD-EPI)AfAm >90 (>60 ml/min/1.73 sqM) Est GFR (CKD-EPI)NonAf 81 (>60 ml/min/1.73 sqM) Glucose 91 (74-99) mg/dL Calcium 9.9 (8.4-10.2) mg/dL Magnesium 2.2 (1.6-2.3) mg/dL Total Bilirubin 0.5 (0.2-1.3) mg/dL AST 21 (14-36) U/L ALT 27 (9-52) U/L Alkaline Phosphatase 93 (38-126) U/L Total Creatine Kinase 42 (30-135) U/L CK-MB (CK-2) 0.5 (0.0-2.4) ng/mL CK-MB (CK-2) Rel Index 1.2 Troponin I <0.012 (0.000-0.034) ng/mL Total Protein 7.4 (6.3-8.2) g/dL Albumin 4.4 (3.5-5.0) g/dL 07/24/17 Range/Units 01:10 WBC (3.8-10.6) k/uL RBC (3.80-5.40) m/uL Hgb (11.4-16.0) gm/dL Hct (34.0-46.0) % MCV (80.0-100.0) fL MCH (25.0-35.0) pg MCHC (31.0-37.0) g/dL RDW (11.5-15.5) % Plt Count (150-450) k/uL Neutrophils % % Lymphocytes % % Monocytes % % Eosinophils % % Basophils % % Neutrophils # (1.3-7.7) k/uL Lymphocytes # (1.0-4.8) k/uL Monocytes # (0-1.0) k/uL Eosinophils # (0-0.7) k/uL Basophils # (0-0.2) k/uL PT 10.1 (9.0-12.0) sec INR 1.0 (<1.2) APTT 24.5 (22.0-30.0) sec Sodium (137-145) mmol/L Potassium (3.5-5.1) mmol/L Chloride (98-107) mmol/L Carbon Dioxide (22-30) mmol/L Anion Gap mmol/L BUN (7-17) mg/dL Creatinine (0.52-1.04) mg/dL Est GFR (CKD-EPI)AfAm (>60 ml/min/1.73 sqM) Est GFR (CKD-EPI)NonAf (>60 ml/min/1.73 sqM) Glucose (74-99) mg/dL Calcium (8.4-10.2) mg/dL Magnesium (1.6-2.3) mg/dL Total Bilirubin (0.2-1.3) mg/dL AST (14-36) U/L ALT (9-52) U/L Alkaline Phosphatase (38-126) U/L Total Creatine Kinase (30-135) U/L CK-MB (CK-2) (0.0-2.4) ng/mL CK-MB (CK-2) Rel Index Troponin I (0.000-0.034) ng/mL Total Protein (6.3-8.2) g/dL Albumin (3.5-5.0) g/dL Disposition Clinical Impression: Palpitations, Bradycardia Disposition: HOME SELF-CARE Condition: Good Instructions: Palpitations (ED) Referrals: Manolo Hackett MD [Primary Care Provider] - 1-2 days
== END 2017-07-24 03:36 | disposition home or self-care (01) ==
LOC: EC 00:55
DX: R00.2 Palpitations (principal); R00.1 Bradycardia, unspecified; E78.5 Hyperlipidemia, unspecified; I10 Essential (primary) hypertension; I48.91 Unspecified atrial fibrillation; M19.90 Unspecified osteoarthritis, unspecified site; F41.9 Anxiety disorder, unspecified; Z87.891 Personal history of nicotine dependence; Z79.02 Long term (current) use of antithrombotics/antiplatelets; Z79.82 Long term (current) use of aspirin; Z79.899 Other long term (current) drug therapy; Z91.09 Other allergy status, other than to drugs and biological substances; Z95.818 Presence of other cardiac implants and grafts
CPT/HCPCS: 36415; 71045; 80053; 82550; 82553; 83735; 84484; 85025; 85610; 85730; 93005; 99285

== ENCOUNTER 2017-07-28 21:12 | Observation (INO) | payer MEDICARE ==
[2017-07-28 21:23] VITALS: RESP 16
--- NOTE | 2017-07-28 21:44 | ED ---
General Adult HPI - General Chief complaint: Chest Pain Stated complaint: Palpitations Time Seen by Provider: 07/28/17 21:23 Source: patient, RN notes reviewed, old records reviewed Mode of arrival: ambulatory Limitations: no limitations - History of Present Illness Initial comments: 61-year-old female presents for evaluation of palpitations. She states that throughout the day today she's had sensation that her heart was racing. She did have some chest tightness and dyspnea associated with this. She has history coronary artery disease status post multiple stents. She has remote history of tobacco use, however she is not currently smoking. Denies cough. Denies fever or chills. Denies nausea or vomiting, she has had some mild diarrhea. She is currently on Plavix and metoprolol 12.5 mg twice daily, she most recently took her metoprolol at approximately 5 PM. - Related Data Home Medications Medication Instructions Recorded Confirmed Aspirin 81 mg PO DAILY 05/04/17 07/28/17 Atorvastatin [Lipitor] 40 mg PO HS 07/28/17 07/28/17 Clopidogrel [Plavix] 75 mg PO DAILY 07/28/17 07/28/17 Metoprolol Tartrate [Lopressor] 12.5 mg PO BID 07/28/17 07/28/17 Previous Rx's Medication Instructions Recorded Nitroglycerin Sl Tabs [Nitrostat] 0.4 mg SUBLINGUAL Q5M PRN #20 tab 05/22/17 Allergies Allergy/AdvReac Type Severity Reaction Status Date / Time adhesive tape AdvReac SKIN TEAR Verified 07/28/17 22:03 Review of Systems ROS Statement: Those systems with pertinent positive or pertinent negative responses have been documented in the HPI. ROS Other: All systems not noted in ROS Statement are negative. Past Medical History Past Medical History: Atrial Fibrillation, Chest Pain / Angina, GERD/Reflux, Hyperlipidemia, Hypertension, Osteoarthritis (OA) Additional Past Medical History / Comment(s): Low back pain, DDD, PILI SCIATIC NERVE PAIN, lung lesion sees Dr. Reza History of Any Multi-Drug Resistant Organisms: None Reported Past Surgical History: Heart Catheterization With Stent, Joint Replacement Additional Past Surgical History / Comment(s): Total L/R hip arthroplasty, ECTOPIC PREG - LT SALPINGECTOMY. Past Anesthesia/Blood Transfusion Reactions: No Reported Reaction Additional Past Anesthesia/Blood Transfusion Reaction / Comment(s): after hip replacement last time had very slow pulse Date of Last Stent Placement:: 05-21-2017 Past Psychological History: Anxiety Smoking Status: Former smoker Past Alcohol Use History: None Reported Past Drug Use History: None Reported - Past Family History Mother Family Medical History: Cancer Additional Family Medical History / Comment(s): Pancreatic with mets. Mother at age 68yrs. Father Family Medical History: Cancer Additional Family Medical History / Comment(s): Small cell lung carcinoma. General Exam Limitations: no limitations General appearance: alert, in no apparent distress Head exam: Present: atraumatic, normocephalic Eye exam: Present: normal appearance, PERRL, EOMI ENT exam: Present: normal exam Neck exam: Present: normal inspection. Absent: tenderness, meningismus Respiratory exam: Present: normal lung sounds bilaterally. Absent: respiratory distress Cardiovascular Exam: Present: normal rhythm, bradycardia GI/Abdominal exam: Present: soft. Absent: distended, tenderness, guarding Extremities exam: Present: normal inspection, normal capillary refill. Absent: pedal edema Neurological exam: Present: alert, oriented X3, CN II-XII intact. Absent: motor sensory deficit Psychiatric exam: Present: normal affect, normal mood Skin exam: Present: warm, dry, intact. Absent: cyanosis, diaphoretic Course Vital Signs 07/28/17 07/28/17 21:16 22:00 Temperature 97.4 F L Pulse Rate 51 L 40 L Respiratory 16 16 Rate Blood Pressure 140/67 126/65 O2 Sat by Pulse 98 98 Oximetry EKG Findings - EKG Comments: EKG Findings:: EKG: Sinus bradycardia, ventricular rate of 46, MI interval 162, QRS duration 88, QTC 392, no signs of acute ischemia Medical Decision Making - Medical Decision Making 61-year-old female presenting with chest tightness and palpitations. Patient is initially found to be bradycardic in the 40s, EKG shows sinus bradycardia. Her pressure remained stable. While the emergency department, patient's heart rate does dip into the 30s, remains sinus on the monitor. CBC within normal limits, electrolytes normal, troponin negative, BNP negative. Patient is on metoprolol, she took 12.5 mg at approximately 5 PM which was 5 hours prior to evaluation. Heart rate remains quite low as well as 30s and 40s. Patient will be observed for her chest tightness and bradycardia, cardiology will be placed on consult. She will be admitted to monitored bed. - Lab Data Result diagrams: 07/28/17 21:36 07/28/17 21:36 Lab Results 07/28/17 07/28/17 07/28/17 Range/Units 21:36 21:36 21:36 WBC 7.5 (3.8-10.6) k/uL RBC 4.64 (3.80-5.40) m/uL Hgb 13.2 (11.4-16.0) gm/dL Hct 40.3 (34.0-46.0) % MCV 86.9 (80.0-100.0) fL MCH 28.5 (25.0-35.0) pg MCHC 32.8 (31.0-37.0) g/dL RDW 12.9 (11.5-15.5) % Plt Count 310 (150-450) k/uL Neutrophils % 55 % Lymphocytes % 34 % Monocytes % 6 % Eosinophils % 3 % Basophils % 1 % Neutrophils # 4.1 (1.3-7.7) k/uL Lymphocytes # 2.6 (1.0-4.8) k/uL Monocytes # 0.4 (0-1.0) k/uL Eosinophils # 0.3 (0-0.7) k/uL Basophils # 0.1 (0-0.2) k/uL PT (9.0-12.0) sec INR (<1.2) APTT (22.0-30.0) sec Sodium 145 (137-145) mmol/L Potassium 3.7 (3.5-5.1) mmol/L Chloride 104 (98-107) mmol/L Carbon Dioxide 27 (22-30) mmol/L Anion Gap 14 mmol/L BUN 8 (7-17) mg/dL Creatinine 0.80 (0.52-1.04) mg/dL Est GFR (CKD-EPI)AfAm >90 (>60 ml/min/1.73 sqM) Est GFR (CKD-EPI)NonAf 81 (>60 ml/min/1.73 sqM) Glucose 100 H (74-99) mg/dL Calcium 10.0 (8.4-10.2) mg/dL Magnesium 2.1 (1.6-2.3) mg/dL Total Bilirubin 0.4 (0.2-1.3) mg/dL AST 21 (14-36) U/L ALT 26 (9-52) U/L Alkaline Phosphatase 97 (38-126) U/L Total Creatine Kinase 102 (30-135) U/L CK-MB (CK-2) 0.7 (0.0-2.4) ng/mL CK-MB (CK-2) Rel Index 0.7 Troponin I <0.012 (0.000-0.034) ng/mL NT-Pro-B Natriuret Pep pg/mL Total Protein 7.3 (6.3-8.2) g/dL Albumin 4.4 (3.5-5.0) g/dL 07/28/17 07/28/17 Range/Units 21:36 21:36 WBC (3.8-10.6) k/uL RBC (3.80-5.40) m/uL Hgb (11.4-16.0) gm/dL Hct (34.0-46.0) % MCV (80.0-100.0) fL MCH (25.0-35.0) pg MCHC (31.0-37.0) g/dL RDW (11.5-15.5) % Plt Count (150-450) k/uL Neutrophils % % Lymphocytes % % Monocytes % % Eosinophils % % Basophils % % Neutrophils # (1.3-7.7) k/uL Lymphocytes # (1.0-4.8) k/uL Monocytes # (0-1.0) k/uL Eosinophils # (0-0.7) k/uL Basophils # (0-0.2) k/uL PT 10.2 (9.0-12.0) sec INR 1.0 (<1.2) APTT 24.0 (22.0-30.0) sec Sodium (137-145) mmol/L Potassium (3.5-5.1) mmol/L Chloride (98-107) mmol/L Carbon Dioxide (22-30) mmol/L Anion Gap mmol/L BUN (7-17) mg/dL Creatinine (0.52-1.04) mg/dL Est GFR (CKD-EPI)AfAm (>60 ml/min/1.73 sqM) Est GFR (CKD-EPI)NonAf (>60 ml/min/1.73 sqM) Glucose (74-99) mg/dL Calcium (8.4-10.2) mg/dL Magnesium (1.6-2.3) mg/dL Total Bilirubin (0.2-1.3) mg/dL AST (14-36) U/L ALT (9-52) U/L Alkaline Phosphatase (38-126) U/L Total Creatine Kinase (30-135) U/L CK-MB (CK-2) (0.0-2.4) ng/mL CK-MB (CK-2) Rel Index Troponin I (0.000-0.034) ng/mL NT-Pro-B Natriuret Pep 295 pg/mL Total Protein (6.3-8.2) g/dL Albumin (3.5-5.0) g/dL Disposition Clinical Impression: Chest pain, Sinus bradycardia Disposition: ADMITTED IP TO THIS [facility] Condition: Stable Referrals: Dallas Mir MD [STAFF PHYSICIAN] - 1-2 days Decision to Admit Reason: Admit from EC Decision Date: 07/28/17 Decision Time: 22:52
[2017-07-28 21:52] LABS: Basophils # (A) 0.1 k/uL (0-0.2); Basophils % (A) 1 %; Eosinophils # (A) 0.3 k/uL (0-0.7); Eosinophils % (A) 3 %; HCT 40.3 % (34.0-46.0); HGB 13.2 gm/dL (11.4-16.0); Lymphocytes # (A) 2.6 k/uL (1.0-4.8); Lymphocytes % (A) 34 %; MCH 28.5 pg (25.0-35.0); MCHC 32.8 g/dL (31.0-37.0); MCV 86.9 fL (80.0-100.0); Mean Platelet Volume 7.7; Monocytes # (A) 0.4 k/uL (0-1.0); Monocytes % (A) 6 %; Neutrophils # (A) 4.1 k/uL (1.3-7.7); Neutrophils % (A) 55 %; Platelet Count 310 k/uL (150-450); RBC 4.64 m/uL (3.80-5.40); RDW 12.9 % (11.5-15.5); WBC 7.5 k/uL (3.8-10.6)
[2017-07-28 21:59] LABS: Prothrombin Time 10.2 sec (9.0-12.0)
[2017-07-28 22:00] LABS: ALT 26 U/L (9-52); AST 21 U/L (14-36); Albumin 4.4 g/dL (3.5-5.0); Alkaline Phosphatase 97 U/L (38-126); Anion Gap 14 mmol/L; Blood Urea Nitrogen 8 mg/dL (7-17); Carbon Dioxide 27 mmol/L (22-30); Chloride 104 mmol/L (98-107); Glucose 100 mg/dL (74-99); Magnesium 2.1 mg/dL (1.6-2.3); Potassium 3.7 mmol/L (3.5-5.1); Sodium 145 mmol/L (137-145); Total Bilirubin 0.4 mg/dL (0.2-1.3); Total Protein 7.3 g/dL (6.3-8.2)
--- NOTE | 2017-07-28 22:04 | XR ---
EXAMINATION TYPE: XR chest 2V DATE OF EXAM: 07/28/2017 COMPARISON: 07/24/2017 HISTORY: Palpitations TECHNIQUE: Frontal and lateral views of the chest are obtained. FINDINGS: Heart and mediastinum are normal. Lungs are clear. Costophrenic angles are clear. Bony tho rax is intact. There are chest leads. IMPRESSION: Normal chest. No change.
[2017-07-28 22:09] LABS: Creatine Kinase 102 U/L (30-135)
[2017-07-28 22:22] LABS: Creatine Kinase MB 0.7 ng/mL (0.0-2.4); Troponin I <0.012 ng/mL (0.000-0.034)
[2017-07-28] MEDS ORDERED: NALOXONE 0.4 MG/ML 1 ML VIAL IV PRN (22:52)
[2017-07-28 23:52] VITALS: BMI 27.1
[2017-07-29] MEDS ORDERED: MELATONIN 5 MG TABLET PO SCH (00:15)
[2017-07-29] MEDS: ALPRAZolam 0.5 MG TAB PO PRN ×2 (00:23→10:37)
[2017-07-29 03:43] LABS: Creatine Kinase 78 U/L (30-135)
[2017-07-29 03:57] LABS: Creatine Kinase MB 0.7 ng/mL (0.0-2.4); Troponin I <0.012 ng/mL (0.000-0.034)
--- NOTE | 2017-07-29 08:53 | P.CRDCN ---
History of Present Illness Consult date: 07/29/17 Requesting physician: Emily Correa Consult reason: chest pain Chief complaint: Chest pain History of present illness: This is a 61-year-old female who follows regularly with Dr. Null in the office. She has a known history of coronary artery disease and has undergone multiple stent placements. She underwent successful stenting of the circumflex artery, right coronary artery, successful stenting of the first diagonal branch of the LAD. Most recently, patient underwent a cardiac catheterization which revealed patent stents in May. She also has history of hypertension and hyperlipidemia. She presents to the hospital on this occasion with symptoms that initially started as a jumping feeling in her chest which she experienced 3 times. She states that she had something to eat and developed a pressure heavy feeling in her chest and had mild associated dizziness. For this reason she came to the emergency room for further evaluation. EKG on arrival here showed a sinus bradycardia with a heart rate in the 40s, T-wave inversion in the anterior leads, T-wave inversion was also noted on her prior EKGs. Troponins were negative 3, sodium 145, potassium 3.7 , BUN 8, creatinine 0.8. CBC is normal. Patient was seen and examined this morning, denies any chest pain at present, denies any dizziness. Her heart rate however continues to be in the 40s. She is on metoprolol 12-1/2 mg by mouth twice a day at home which we will discontinue. We will continue dual antiplatelet therapy along with Lipitor. Past Medical History Past Medical History: Atrial Fibrillation, Chest Pain / Angina, GERD/Reflux, Hyperlipidemia, Hypertension, Osteoarthritis (OA) Additional Past Medical History / Comment(s): Low back pain, DDD, PILI SCIATIC NERVE PAIN, lung lesion sees Dr. Reza History of Any Multi-Drug Resistant Organisms: None Reported Past Surgical History: Heart Catheterization With Stent, Joint Replacement Additional Past Surgical History / Comment(s): Total L/R hip arthroplasty, ECTOPIC PREG - LT SALPINGECTOMY. Three cardiac stents from 2018 Past Anesthesia/Blood Transfusion Reactions: No Reported Reaction Additional Past Anesthesia/Blood Transfusion Reaction / Comment(s): after hip replacement last time had very slow pulse Date of Last Stent Placement:: 05-21-2017 Past Psychological History: Anxiety Additional Psychological History / Comment(s): Pt resides alone. Pt normally is independent with her ADls. She drives a car. Smoking Status: Former smoker Past Alcohol Use History: None Reported Additional Past Alcohol Use History / Comment(s): quit smoking November 2016 months ago, started smoking at age of 13, smoked 1ppd Past Drug Use History: None Reported - Past Family History Mother Family Medical History: Cancer Additional Family Medical History / Comment(s): Pancreatic with mets. Mother at age 68yrs. Father Family Medical History: Cancer Additional Family Medical History / Comment(s): Small cell lung carcinoma. Medications and Allergies Home Medications Medication Instructions Recorded Confirmed Type Aspirin 81 mg PO DAILY 05/04/17 07/28/17 History Nitroglycerin Sl Tabs [Nitrostat] 0.4 mg SUBLINGUAL Q5M PRN #20 tab 05/22/17 Rx ALPRAZolam [Xanax] 0.5 mg PO BID 07/28/17 07/28/17 History Atorvastatin [Lipitor] 40 mg PO HS 07/28/17 07/28/17 History Clopidogrel [Plavix] 75 mg PO DAILY 07/28/17 07/28/17 History LORazepam [Ativan] 0.5 mg PO BID 07/28/17 07/28/17 History Metoprolol Tartrate [Lopressor] 12.5 mg PO BID 07/28/17 07/28/17 History Hydrocodone/Acetaminophen 0.5 mg PO BID PRN 07/29/17 07/29/17 History [Hydrocodon-Acetaminoph 7.5-325] Allergies Allergy/AdvReac Type Severity Reaction Status Date / Time adhesive tape AdvReac SKIN TEAR Verified 07/28/17 22:03 Physical Exam Vitals: Vital Signs Temp Pulse Pulse Resp BP BP Pulse Ox 07/29/17 08:00 96.9 F L 47 L 16 119/68 99 07/29/17 04:00 97 F L 58 L 16 126/65 96 07/29/17 00:00 96.9 F L 47 L 16 187/86 99 07/28/17 23:15 98 F 52 L 16 160/72 99 07/28/17 22:00 40 L 16 126/65 98 07/28/17 21:16 97.4 F L 51 L 16 140/67 98 Intake and Output 07/28/17 07/29/17 07/29/17 22:59 06:59 14:59 Other: # Voids 1 Weight 71.668 kg 72.1 kg PHYSICAL EXAMINATION: HEENT: Head is atraumatic, normocephalic. Pupils equal, round. Neck is supple. There is no elevated jugular venous pressure. HEART EXAMINATION: Heart S1, S2 normal. No murmur or gallop heard. CHEST EXAMINATION: Lungs are clear to auscultation and precussion. No chest wall tenderness is noted on palpation or with deep breathing. ABDOMEN: Soft, nontender. Bowel sounds are heard. No organomegaly noted. EXTREMITIES: 2+ peripheral pulses with no evidence of peripheral edema and no calf tenderness noted. NEUROLOGIC patient is awake, alert and oriented -3. . Results 07/28/17 21:36 07/28/17 21:36 Cardiac Enzymes 07/28/17 07/28/17 07/29/17 Range/Units 21:36 21:36 03:06 AST 21 (14-36) U/L CK-MB (CK-2) 0.7 0.7 (0.0-2.4) ng/mL Troponin I <0.012 <0.012 (0.000-0.034) ng/mL Coagulation 07/28/17 Range/Units 21:36 PT 10.2 (9.0-12.0) sec APTT 24.0 (22.0-30.0) sec CBC 07/28/17 Range/Units 21:36 WBC 7.5 (3.8-10.6) k/uL RBC 4.64 (3.80-5.40) m/uL Hgb 13.2 (11.4-16.0) gm/dL Hct 40.3 (34.0-46.0) % Plt Count 310 (150-450) k/uL Comprehensive Metabolic Panel 07/28/17 Range/Units 21:36 Sodium 145 (137-145) mmol/L Potassium 3.7 (3.5-5.1) mmol/L Chloride 104 (98-107) mmol/L Carbon Dioxide 27 (22-30) mmol/L BUN 8 (7-17) mg/dL Creatinine 0.80 (0.52-1.04) mg/dL Glucose 100 H (74-99) mg/dL Calcium 10.0 (8.4-10.2) mg/dL AST 21 (14-36) U/L ALT 26 (9-52) U/L Alkaline Phosphatase 97 (38-126) U/L Total Protein 7.3 (6.3-8.2) g/dL Albumin 4.4 (3.5-5.0) g/dL Current Medications Generic Name Dose Route Start Last Admin Trade Name Freq PRN Reason Stop Dose Admin Alprazolam 0.5 mg 07/29/17 00:08 07/29/17 00:23 Xanax PO 0.5 mg BID PRN Administration Anxiety Aspirin 81 mg 07/29/17 09:00 Aspirin PO DAILY DORIS Atorvastatin Calcium 40 mg 07/29/17 21:00 Lipitor PO HS DORIS Clopidogrel Bisulfate 75 mg 07/29/17 09:00 Plavix PO DAILY DORIS Melatonin 5 mg 07/29/17 00:15 07/29/17 03:13 Melatonin PO Not Given HS DORIS Naloxone HCl 0.2 mg 07/28/17 22:52 Narcan IV Q2M PRN Opioid Reversal Intake and Output 07/28/17 07/29/17 07/29/17 22:59 06:59 14:59 Other: # Voids 1 Weight 71.668 kg 72.1 kg 07/28/17 21:36 07/28/17 21:36 EKG Interpretations (text) EKG shows a sinus bradycardia with T-wave inversion in the anterior leads, T wave inversion similar to prior EKGs. Assessment and Plan Plan: Assessment and plan #1 atypical chest pain, troponins negative 3, EKG shows sinus bradycardia with T-wave inversion in the anterior leads. #2 sinus bradycardia with associated dizziness. #3 known history of coronary artery disease with prior stent placements, cardiac catheterization in May revealed patent stents. #4 hypertension #5 hyperlipidemia Plan We'll not repeat an echocardiogram with Doppler study as the patient recently had one performed in May of this year. It revealed an ejection fraction of 45-50%. We will discontinue the Lopressor, continue dual antiplatelet therapy with Lipitor. The patient increase her activity as tolerated. Plan for possible discharge home, follow-up with Dr. Null in the office post discharge. We will check a free T4 and TSH. Further recommendations to follow. DNP note has been reviewed, I agree with a documented findings and plan of care. Patient was seen and examined.
[2017-07-29] MEDS ORDERED: ASPIRIN 81 MG PO SCH (09:00)
[2017-07-29] MEDS ORDERED: CLOPIDOGREL 75 MG TAB PO SCH (09:00)
[2017-07-29] MEDS ORDERED: HYDROcodone/APAP 7.5-325MG 1 EACH TAB PO PRN (09:16)
[2017-07-29 09:29] LABS: Creatine Kinase 72 U/L (30-135)
[2017-07-29 09:41] LABS: Creatine Kinase MB 0.6 ng/mL (0.0-2.4); Troponin I <0.012 ng/mL (0.000-0.034)
--- NOTE | 2017-07-29 11:29 | HP ---
HISTORY AND PHYSICAL This is a combination of history and physical examination/discharge summary HISTORY AND PHYSICAL/DISCHARGE SUMMARY: CHIEF COMPLAINT: Chest pain. HISTORY OF PRESENT ILLNESS: This 61-year-old woman with a past medical history of atrial fibrillation, history of chest pain, GERD, hypertension, hyperlipidemia, DJD, low back pain, CAD stent being followed by Dr. Hackett and Dr. Granados in the outpatient setting, was complaining of left- sided chest pain, throbbing and palpitations. Patient came to [facility] and admitted for further evaluation and treatment. Patient had a cardiac cath in May which showed patent stents at this time. Troponins are negative. There is no history of fever, rigors or chills. No history of headache, loss of consciousness, seizures. PAST MEDICAL HISTORY: History of CAD, stent, atrial ablation, chest pain, GERD, hypertension, hyperlipidemia. MEDICATIONS: Prior to admission include: 1. [place] 7.5 half tablets b.i.d. p.r.n. 2. Ativan 0.5 mg b.i.d. 3. Xanax 0.5 b.i.d. 4. Nitrostat 0.4 mg sublingual p.r.n. 5. Lopressor 12.5 mg b.i.d. 6. Plavix 75 mg. 7. Lipitor 40 mg q.h.s. 8. Aspirin 81 mg daily. ALLERGIES: ADHESIVE TAPES. FAMILY HISTORY: History of pancreatic cancer with metastasis. SOCIAL HISTORY: Previous history of smoking. No history of alcohol intake. REVIEW OF SYSTEMS: ENT: No diminished vision. No diminished hearing. CARDIOVASCULAR: As mentioned earlier. Respiratory: As mentioned earlier. GI no nausea or vomiting. no dysuria or hematuria. Central nervous system: No numbness or weakness. Allergy/Immunology: No asthma or hayfever. Musculoskeletal: As mentioned earlier. Hematology/Oncology: No history of anemia. Endocrine: No history of diabetes or hypothyroidism. Constitutional: As mentioned earlier. Dermatology: Negative. Rheumatology: Negative. Psychiatric: As mentioned earlier. PHYSICAL EXAMINATION: Alert, oriented times three, pulse 47, blood pressure 119/60. Respirations 16, temperature 98.9, pulse ox 99% on room air. HEENT: Conjunctivae normal. Oral mucosa moist. Neck is no jugular venous distention. No carotid bruit. No lymph node enlargement. Cardiovascular systems: S1, S2 muffled. Respiratory: Breath sounds diminished at the bases. No rhonchi and no crackles. ABDOMEN: Soft, nontender. No mass palpable. Legs: No edema and no swelling. NERVOUS SYSTEM: Higher functions as mentioned earlier, moves all 4 limbs, no focal motor or sensory deficits. Lymphatics: No lymph nodes palpable in the neck, axillae or groin. Skin no ulcers, rashes or bleeding. LAB STUDIES: CBC within normal limits and CMP within normal limits. ASSESSMENT: 1. Chest pain, possibly musculoskeletal. 2. Palpitation. 3. Sinus bradycardia. 4. History of coronary artery disease, stent. 5. History of atrial fibrillation, paroxysmal. 6. Gastroesophageal reflux disease. 7. Hypertension. 8. Hyperlipidemia. 9. History of degenerative joint disease. 10.Low back pain. 11.History of coronary artery disease/stent. 12.History of ectopic . 13.History of anxiety. 14.Remote history of nicotine dependence. RECOMMENDATIONS AND DISCUSSION: In this 61-year-old woman who presented with multiple complex medical issues, we will monitor the patient closely. Continue the current medication, symptomatic treatment. Otherwise at this time I recommend hold the beta blockers and continue to monitor and follow closely with Cardiology and primary physician in the outpatient setting closely. Free T3 and free T4 is normal. See the discharge medications for orders. Continue the rest of medications. Please send a copy dictation to my office as week as Dr. Hackett and as well as Dr. Granados's office. [facility] / [facility]: [id number] /
[2017-07-29 12:07] VITALS: BP 111/70; PULSE 46; TEMP 97.3
[2017-07-29] MEDS ORDERED: ATORVASTATIN 40 MG TAB PO SCH (21:00)
== END 2017-07-29 13:50 | disposition home or self-care (01) ==
LOC: EC 21:12 → 6SEL 22:52
PROVIDERS: ADMIT Hospitalist; ATTEND Hospitalist
DX: R07.89 Other chest pain (principal); R00.1 Bradycardia, unspecified; R00.2 Palpitations; R06.00 Dyspnea, unspecified; R42 Dizziness and giddiness; I25.10 Atherosclerotic heart disease of native coronary artery without angina pectoris; Z95.5 Presence of coronary angioplasty implant and graft; I48.0 Paroxysmal atrial fibrillation; K21.9 Gastro-esophageal reflux disease without esophagitis; I10 Essential (primary) hypertension; E78.5 Hyperlipidemia, unspecified; M19.90 Unspecified osteoarthritis, unspecified site; M54.5 Low back pain; F41.9 Anxiety disorder, unspecified; Z87.891 Personal history of nicotine dependence; Z91.048 Other nonmedicinal substance allergy status; Z80.0 Family history of malignant neoplasm of digestive organs; Z80.1 Family history of malignant neoplasm of trachea, bronchus and lung; Z79.82 Long term (current) use of aspirin; Z79.899 Other long term (current) drug therapy; Z79.02 Long term (current) use of antithrombotics/antiplatelets
CPT/HCPCS: 99285; 36415; 93005; 83880; 80053; 82550 ×2; 82553 ×2; 83735; 84443; 84484 ×2; 85025; 85610; 85730; 71046; G0378 ×2

== ENCOUNTER 2017-07-30 21:23 | Emergency (ER) | payer MEDICARE ==
[2017-07-30 21:34] VITALS: RESP 18
[2017-07-30] MEDS ORDERED: LORazepam 1 MG TAB PO STA (22:20)
--- NOTE | 2017-07-30 22:27 | ED ---
General Adult HPI - General Chief complaint: Recheck/Abnormal Lab/Rx Stated complaint: RAPID HEART RATE Time Seen by Provider: 07/30/17 21:26 Source: patient, RN notes reviewed Mode of arrival: ambulatory Limitations: no limitations - History of Present Illness Initial comments: 61 -year-old female presenting with palpitations. Patient was seen by myself in the emergency department several days ago, she was admitted and was evaluated by cardiology. At that time her beta rachel was discontinued for bradycardia. She states that throughout the day today she had a significantly elevated heart rate with any activity. She does wear a monitor at home and noted a heart rate in the 130s. She called her yarn salvager recommend reinitiating her beta rachel, she thought this was not appropriate as it was just discontinued. She did take a dose of her Norvasc. She was discharged from the hospital 2 days ago she was given a prescription for Ativan, she was unable to fill this prescription. She does admit that there is likely a component of anxiety. Denies any chest pain. Denies dyspnea. Symptoms do resolve with rest. - Related Data Home Medications Medication Instructions Recorded Confirmed Aspirin 81 mg PO DAILY 05/04/17 07/30/17 Atorvastatin [Lipitor] 40 mg PO HS 07/28/17 07/30/17 Clopidogrel [Plavix] 75 mg PO DAILY 07/28/17 07/30/17 Hydrocodone/Acetaminophen 0.5 tab PO BID PRN 07/29/17 07/30/17 [Hydrocodon-Acetaminoph 7.5-325] Previous Rx's Medication Instructions Recorded Nitroglycerin Sl Tabs [Nitrostat] 0.4 mg SUBLINGUAL Q5M PRN #20 tab 05/22/17 Isosorbide Mononitrate ER [Imdur] 15 mg PO DAILY #30 dose 07/29/17 LORazepam [Ativan] 0.5 mg PO BID PRN #20 tab 07/29/17 Allergies Allergy/AdvReac Type Severity Reaction Status Date / Time adhesive tape AdvReac SKIN TEAR Verified 07/30/17 21:45 Review of Systems ROS Statement: Those systems with pertinent positive or pertinent negative responses have been documented in the HPI. ROS Other: All systems not noted in ROS Statement are negative. Past Medical History Past Medical History: Atrial Fibrillation, Chest Pain / Angina, GERD/Reflux, Hyperlipidemia, Hypertension, Osteoarthritis (OA) Additional Past Medical History / Comment(s): Low back pain, DDD, PILI SCIATIC NERVE PAIN, lung lesion sees Dr. Reza History of Any Multi-Drug Resistant Organisms: None Reported Past Surgical History: Heart Catheterization With Stent, Joint Replacement Additional Past Surgical History / Comment(s): Total L/R hip arthroplasty, ECTOPIC PREG - LT SALPINGECTOMY. Three cardiac stents from 2018 Past Anesthesia/Blood Transfusion Reactions: No Reported Reaction Additional Past Anesthesia/Blood Transfusion Reaction / Comment(s): after hip replacement last time had very slow pulse Date of Last Stent Placement:: 05-21-2017 Past Psychological History: Anxiety Smoking Status: Former smoker Past Alcohol Use History: None Reported Past Drug Use History: None Reported - Past Family History Mother Family Medical History: Cancer Additional Family Medical History / Comment(s): Pancreatic with mets. Mother at age 68yrs. Father Family Medical History: Cancer Additional Family Medical History / Comment(s): Small cell lung carcinoma. General Exam Limitations: no limitations General appearance: alert, in no apparent distress Head exam: Present: atraumatic, normocephalic Eye exam: Present: normal appearance, PERRL ENT exam: Present: normal exam Neck exam: Present: normal inspection. Absent: tenderness, meningismus Respiratory exam: Present: normal lung sounds bilaterally. Absent: respiratory distress Cardiovascular Exam: Present: regular rate, normal rhythm GI/Abdominal exam: Present: soft. Absent: distended, tenderness Extremities exam: Present: normal inspection, full ROM, normal capillary refill. Absent: pedal edema Back exam: Present: normal inspection, full ROM Neurological exam: Present: alert, oriented X3, CN II-XII intact. Absent: motor sensory deficit Psychiatric exam: Present: normal affect, anxious Skin exam: Present: warm, dry, intact. Absent: cyanosis, diaphoretic Course Vital Signs 07/30/17 21:32 Temperature 97.1 F L Pulse Rate 70 Respiratory 18 Rate Blood Pressure 184/102 O2 Sat by Pulse 100 Oximetry Medical Decision Making - Medical Decision Making 61-year-old female presenting with anxiety and palpitations. No chest pain or dyspnea. EKG is obtained, normal sinus rhythm, left bundle branch block, patient does have history of left bundle branch block. Patient believes her symptoms are related to anxiety. She asks for 1 Ativan until she is able to fill her prescription in the morning. She does have an appointment with cardiology on Monday. She's given one Ativan to take at home. She is driving herself so she will refrain from taking this medication until she is home. Disposition Clinical Impression: Palpitations, Anxiety Disposition: HOME SELF-CARE Condition: Good Instructions: Palpitations (ED) Referrals: Manolo Hackett MD [Primary Care Provider] - 1-2 days Rhett Granados MD [STAFF PHYSICIAN] - 1-2 days Time of Disposition: 22:27
[2017-07-30 22:41] VITALS: BP 140/73; PULSE 57; TEMP 97.6
== END 2017-07-30 22:41 | disposition home or self-care (01) ==
LOC: EC 21:23
DX: F41.9 Anxiety disorder, unspecified (principal); R00.2 Palpitations; I44.7 Left bundle-branch block, unspecified; I48.91 Unspecified atrial fibrillation; E78.5 Hyperlipidemia, unspecified; Z95.5 Presence of coronary angioplasty implant and graft; Z87.891 Personal history of nicotine dependence; Z79.82 Long term (current) use of aspirin; Z79.02 Long term (current) use of antithrombotics/antiplatelets; Z79.899 Other long term (current) drug therapy; Z91.048 Other nonmedicinal substance allergy status
CPT/HCPCS: 93005; 99284

== ENCOUNTER 2017-07-31 23:34 | Emergency (ER) | payer MEDICARE ==
[2017-07-31 23:43] VITALS: TEMP 97.3
[2017-08-01] MEDS ORDERED: IBUPROFEN 600 MG TAB PO STA (00:02)
--- NOTE | 2017-08-01 00:19 | ED ---
General Adult HPI - General Chief complaint: Headache Stated complaint: Headache, racing heart Time Seen by Provider: 07/31/17 23:55 Source: patient Mode of arrival: ambulatory Limitations: no limitations - History of Present Illness Initial comments: 61-year-old female patient presents to the emergency department today with complaints of headache and racing heart. Patient states that on and off throughout the day today she has been having elevated heart rate. States this causes her blood pressure to rise and gave her headache. Patient states that she has issues with rapid heart rate and was taking metoprolol until her oracle applications developer discontinued it due to bradycardia. Patient states that she did call her oracle applications developer's office and they suggested she restart the beta rachel however she refuses to take it. Patient states that her heart rate only increases when she does physical activity. States that she has been mildly nauseated throughout the day today. States she has had intermittent chest pain. These symptoms are chronic for the patient. She was seen here yesterday for similar symptoms. Does admit to being anxious throughout the day. She did take her ativan. She does have an appointment with her oracle applications developer tomorrow. Patient denies any recent rash, fever, chills, shortness breath, abdominal pain , vomiting, diarrhea, constipation, back pain, numbness, tingling, dizziness, weakness, hematuria, dysuria, urinary urgency, urinary frequency, visual changes , or any other complaints. - Related Data Home Medications Medication Instructions Recorded Confirmed Aspirin 81 mg PO DAILY 05/04/17 07/31/17 Atorvastatin [Lipitor] 40 mg PO HS 07/28/17 07/31/17 Clopidogrel [Plavix] 75 mg PO DAILY 07/28/17 07/31/17 Hydrocodone/Acetaminophen 0.5 tab PO BID PRN 07/29/17 07/31/17 [Hydrocodon-Acetaminoph 7.5-325] Previous Rx's Medication Instructions Recorded Nitroglycerin Sl Tabs [Nitrostat] 0.4 mg SUBLINGUAL Q5M PRN #20 tab 05/22/17 Isosorbide Mononitrate ER [Imdur] 15 mg PO DAILY #30 dose 07/29/17 LORazepam [Ativan] 0.5 mg PO BID PRN #20 tab 07/29/17 Allergies Allergy/AdvReac Type Severity Reaction Status Date / Time adhesive tape AdvReac SKIN TEAR Verified 07/31/17 23:49 Review of Systems ROS Statement: Those systems with pertinent positive or pertinent negative responses have been documented in the HPI. ROS Other: All systems not noted in ROS Statement are negative. Past Medical History Past Medical History: Atrial Fibrillation, Chest Pain / Angina, GERD/Reflux, Hyperlipidemia, Hypertension, Osteoarthritis (OA) Additional Past Medical History / Comment(s): Low back pain, DDD, PILI SCIATIC NERVE PAIN, lung lesion sees Dr. Reza History of Any Multi-Drug Resistant Organisms: None Reported Past Surgical History: Heart Catheterization With Stent, Joint Replacement Additional Past Surgical History / Comment(s): Total L/R hip arthroplasty, ECTOPIC PREG - LT SALPINGECTOMY. Three cardiac stents from 2018 Past Anesthesia/Blood Transfusion Reactions: No Reported Reaction Additional Past Anesthesia/Blood Transfusion Reaction / Comment(s): after hip replacement last time had very slow pulse Date of Last Stent Placement:: 05-21-2017 Past Psychological History: Anxiety Smoking Status: Former smoker Past Alcohol Use History: None Reported Past Drug Use History: None Reported - Past Family History Mother Family Medical History: Cancer Additional Family Medical History / Comment(s): Pancreatic with mets. Mother at age 68yrs. Father Family Medical History: Cancer Additional Family Medical History / Comment(s): Small cell lung carcinoma. General Exam Limitations: no limitations General appearance: alert, in no apparent distress, other (This is a well- developed, well-nourished adult female patient in no acute distress. Vital signs upon presentation are temperature 97.3F, pulse 75, respirations 16, blood pressure 1 4387, pulse ox 99% on room air.) Eye exam: Present: normal appearance, PERRL, EOMI. Absent: scleral icterus, conjunctival injection, periorbital swelling ENT exam: Present: normal exam, normal oropharynx, mucous membranes moist Neck exam: Present: normal inspection. Absent: tenderness, meningismus, lymphadenopathy Respiratory exam: Present: normal lung sounds bilaterally. Absent: respiratory distress, wheezes, rales, rhonchi, stridor Cardiovascular Exam: Present: regular rate, normal rhythm, normal heart sounds. Absent: systolic murmur, diastolic murmur, rubs, gallop, clicks GI/Abdominal exam: Present: soft, normal bowel sounds. Absent: distended, tenderness, guarding, rebound, rigid Neurological exam: Present: alert, oriented X3, CN II-XII intact Psychiatric exam: Present: normal affect, normal mood Skin exam: Present: warm, dry, intact, normal color. Absent: rash Course Vital Signs 07/31/17 08/01/17 23:40 00:11 Temperature 97.3 F L Pulse Rate 75 Pulse Rate [ 60 Left Sitting Pulse Oximetery ] Pulse Rate [ 83 Left Standing Pulse Oximetery ] Pulse Rate [ 54 L Left Supine Pulse Oximetery ] Respiratory 16 Rate Blood Pressure 143/87 Blood Pressure 126/74 [Right Arm Sitting] Blood Pressure 126/78 [Right Arm Standing] Blood Pressure 131/74 [Right Arm Supine] O2 Sat by Pulse 99 96 Oximetry EKG Findings - EKG Comments: EKG Findings:: EKG obtained at 00 11 shows normal sinus rhythm. Ventricular rate of 61, CA interval 166, QRS duration 88, QT 410, QTc 412. Medical Decision Making - Medical Decision Making 61-year-old female patient presented to the emergency department today for complaints of racing heart and headache. Physical examination is unremarkable. Heart rate upon arrival after walking from her car to this emergency department was 75. We did perform orthostatic vital signs which were normal. EKG showed normal sinus rhythm at a rate of 61. Did give patient ibuprofen for her headache. She does have an appointment with her oracle applications developer tomorrow to discuss reinitiation of her beta rachel. Return parameters discussed in detail. She is instructed to return here immediately for any new, worsening, or concerning symptoms. She verbalizes understanding and agrees with this plan. Disposition Clinical Impression: Racing heart beat, Head ache Disposition: HOME SELF-CARE Condition: Good Instructions: Palpitations (ED), Acute Headache (ED) Additional Instructions: Keep your appointment with your oracle applications developer tomorrow. Follow up with your primary care physician. Return here immediately for any new, worsening or concerning symptoms. Return here immediately for any new, worsening, or concerning symptoms. Referrals: Manolo Hackett MD [Primary Care Provider] - 1-2 days Time of Disposition: 00:46
[2017-08-01 01:27] VITALS: BP 120/70; PULSE 73; RESP 18
== END 2017-08-01 01:26 | disposition home or self-care (01) ==
LOC: EC 23:34
DX: R51 Headache (principal); R00.0 Tachycardia, unspecified; R07.9 Chest pain, unspecified; R11.0 Nausea; I48.91 Unspecified atrial fibrillation; I10 Essential (primary) hypertension; E78.5 Hyperlipidemia, unspecified; M19.90 Unspecified osteoarthritis, unspecified site; Z87.891 Personal history of nicotine dependence; Z79.82 Long term (current) use of aspirin; Z79.02 Long term (current) use of antithrombotics/antiplatelets; Z79.899 Other long term (current) drug therapy; Z91.048 Other nonmedicinal substance allergy status; Z86.79 Personal history of other diseases of the circulatory system; Z95.5 Presence of coronary angioplasty implant and graft
CPT/HCPCS: 93005; 99284

== ENCOUNTER 2017-08-02 22:12 | Observation (INO) | payer MEDICARE ==
[2017-08-02 22:59] LABS: Basophils % (A) 0 %; Eosinophils # (A) 0.2 k/uL (0-0.7); Eosinophils % (A) 3 %; HCT 38.2 % (34.0-46.0); HGB 12.5 gm/dL (11.4-16.0); Lymphocytes % (A) 32 %; MCH 28.7 pg (25.0-35.0); MCHC 32.6 g/dL (31.0-37.0); MCV 87.8 fL (80.0-100.0); Mean Platelet Volume 7.4; Monocytes # (A) 0.4 k/uL (0-1.0); Monocytes % (A) 6 %; Neutrophils # (A) 3.6 k/uL (1.3-7.7); Neutrophils % (A) 58 %; Platelet Count 273 k/uL (150-450); RBC 4.35 m/uL (3.80-5.40); WBC 6.2 k/uL (3.8-10.6)
[2017-08-02 23:06] LABS: Partial Thromboplastin Time 25.2 sec (22.0-30.0); Prothrombin Time 10.1 sec (9.0-12.0)
[2017-08-02 23:09] LABS: Albumin 3.9 g/dL (3.5-5.0); Calcium 9.2 mg/dL (8.4-10.2); Magnesium 1.9 mg/dL (1.6-2.3); Potassium 3.7 mmol/L (3.5-5.1); Total Bilirubin 0.3 mg/dL (0.2-1.3); Total Protein 6.7 g/dL (6.3-8.2)
[2017-08-02 23:26] LABS: Creatine Kinase 46 U/L (30-135)
[2017-08-02] MEDS ORDERED: DIAZEPAM 5 MG/ML 2 ML INJ IVP STA (23:27)
--- NOTE | 2017-08-02 23:36 | ED ---
General Adult HPI - General Chief complaint: Arrhythmia/Palpitations Stated complaint: Rapid Heart Beat Time Seen by Provider: 08/02/17 22:35 Source: patient, RN notes reviewed, old records reviewed Mode of arrival: ambulatory Limitations: no limitations - History of Present Illness Initial comments: This is a 61-year-old female to the ER for evaluation patient presents today for evaluation of anxiety palpitations episodes of bradycardia and tachycardia, changing with position as well as activity. Patient has severe shortness of breath with exertion. Patient states she's been doing with that she is issue for about a week or so plus. She is very emotional, crying. Currently asymptomatic - Related Data Home Medications Medication Instructions Recorded Confirmed Aspirin 81 mg PO DAILY 05/04/17 08/02/17 Atorvastatin [Lipitor] 40 mg PO HS 07/28/17 08/02/17 Clopidogrel [Plavix] 75 mg PO DAILY 07/28/17 08/02/17 Hydrocodone/Acetaminophen 0.5 tab PO BID PRN 07/29/17 08/02/17 [Hydrocodon-Acetaminoph 7.5-325] Ibuprofen [Motrin Ib] 200 mg PO Q6H PRN 08/02/17 08/02/17 Previous Rx's Medication Instructions Recorded Nitroglycerin Sl Tabs [Nitrostat] 0.4 mg SUBLINGUAL Q5M PRN #20 tab 05/22/17 Isosorbide Mononitrate ER [Imdur] 15 mg PO DAILY #30 dose 07/29/17 LORazepam [Ativan] 0.5 mg PO BID PRN #20 tab 07/29/17 Allergies Allergy/AdvReac Type Severity Reaction Status Date / Time adhesive tape AdvReac SKIN TEAR Verified 08/02/17 22:29 Review of Systems ROS Statement: Those systems with pertinent positive or pertinent negative responses have been documented in the HPI. ROS Other: All systems not noted in ROS Statement are negative. Past Medical History Past Medical History: Atrial Fibrillation, Chest Pain / Angina, GERD/Reflux, Hyperlipidemia, Hypertension, Myocardial Infarction ([place]), Osteoarthritis (OA) Additional Past Medical History / Comment(s): Low back pain, DDD, PILI SCIATIC NERVE PAIN, lung lesion sees Dr. Reza History of Any Multi-Drug Resistant Organisms: None Reported Past Surgical History: Heart Catheterization With Stent, Joint Replacement Additional Past Surgical History / Comment(s): Total L/R hip arthroplasty, ECTOPIC PREG - LT SALPINGECTOMY. Three cardiac stents from 2018 Past Anesthesia/Blood Transfusion Reactions: No Reported Reaction Additional Past Anesthesia/Blood Transfusion Reaction / Comment(s): after hip replacement last time had very slow pulse Date of Last Stent Placement:: 05-21-2017 Past Psychological History: Anxiety Smoking Status: Former smoker Past Alcohol Use History: None Reported Past Drug Use History: None Reported - Past Family History Mother Family Medical History: Cancer Additional Family Medical History / Comment(s): Pancreatic with mets. Mother at age 68yrs. Father Family Medical History: Cancer Additional Family Medical History / Comment(s): Small cell lung carcinoma. General Exam Limitations: no limitations General appearance: alert, in no apparent distress, anxious Head exam: Present: atraumatic, normocephalic, normal inspection Eye exam: Present: normal appearance, PERRL, EOMI. Absent: scleral icterus, conjunctival injection, periorbital swelling ENT exam: Present: normal exam, mucous membranes moist Neck exam: Present: normal inspection. Absent: tenderness, meningismus, lymphadenopathy Respiratory exam: Present: normal lung sounds bilaterally. Absent: respiratory distress, wheezes, rales, rhonchi, stridor Cardiovascular Exam: Present: regular rate, normal rhythm, normal heart sounds. Absent: systolic murmur, diastolic murmur, rubs, gallop, clicks GI/Abdominal exam: Present: soft, normal bowel sounds. Absent: distended, tenderness, guarding, rebound, rigid Extremities exam: Present: normal inspection, full ROM, normal capillary refill. Absent: tenderness, pedal edema, joint swelling, calf tenderness Back exam: Present: normal inspection Neurological exam: Present: alert, oriented X3, CN II-XII intact Psychiatric exam: Present: normal affect, normal mood Skin exam: Present: warm, dry, intact, normal color. Absent: rash Course Vital Signs 08/02/17 08/02/17 08/02/17 22:13 22:41 22:52 Temperature 97.3 F L Pulse Rate 83 64 Pulse Rate [ 68 Right] Respiratory 16 16 Rate Blood Pressure 149/92 129/78 O2 Sat by Pulse 100 99 Oximetry 08/02/17 08/02/17 23:13 23:55 Temperature 97.0 F L Pulse Rate 75 56 L Pulse Rate [ Right] Respiratory 16 14 Rate Blood Pressure 155/87 141/80 O2 Sat by Pulse 98 100 Oximetry - Reevaluation(s) Reevaluation #1: 08/03/17 00:12 Patient resting comfortably after anxiolysis EKG Findings - EKG Comments: EKG Findings:: EKG shows normal sinus rhythm rate of 62, MD 160, QRS 86, QTc 4: 30 Medical Decision Making - Medical Decision Making 61 female the ER for evaluation of palpitations, severe tachycardia and bradycardia, uncontrollable heart rate, severe dyspnea and shortness of breath activity. - Lab Data Result diagrams: 08/02/17 22:40 08/02/17 22:40 Lab Results 08/02/17 08/02/17 08/02/17 Range/Units 22:40 22:40 22:40 WBC 6.2 (3.8-10.6) k/uL RBC 4.35 (3.80-5.40) m/uL Hgb 12.5 (11.4-16.0) gm/dL Hct 38.2 (34.0-46.0) % MCV 87.8 (80.0-100.0) fL MCH 28.7 (25.0-35.0) pg MCHC 32.6 (31.0-37.0) g/dL RDW 13.0 (11.5-15.5) % Plt Count 273 (150-450) k/uL Neutrophils % 58 % Lymphocytes % 32 % Monocytes % 6 % Eosinophils % 3 % Basophils % 0 % Neutrophils # 3.6 (1.3-7.7) k/uL Lymphocytes # 2.0 (1.0-4.8) k/uL Monocytes # 0.4 (0-1.0) k/uL Eosinophils # 0.2 (0-0.7) k/uL Basophils # 0.0 (0-0.2) k/uL PT (9.0-12.0) sec INR (<1.2) APTT (22.0-30.0) sec Sodium 139 (137-145) mmol/L Potassium 3.7 (3.5-5.1) mmol/L Chloride 105 (98-107) mmol/L Carbon Dioxide 21 L (22-30) mmol/L Anion Gap 13 mmol/L BUN 14 (7-17) mg/dL Creatinine 0.88 (0.52-1.04) mg/dL Est GFR (CKD-EPI)AfAm 84 (>60 ml/min/1.73 sqM) Est GFR (CKD-EPI)NonAf 73 (>60 ml/min/1.73 sqM) Glucose 114 H (74-99) mg/dL Calcium 9.2 (8.4-10.2) mg/dL Magnesium 1.9 (1.6-2.3) mg/dL Total Bilirubin 0.3 (0.2-1.3) mg/dL AST 21 (14-36) U/L ALT 34 (9-52) U/L Alkaline Phosphatase 114 (38-126) U/L Total Creatine Kinase 46 (30-135) U/L CK-MB (CK-2) 0.5 (0.0-2.4) ng/mL CK-MB (CK-2) Rel Index 1.1 Troponin I <0.012 (0.000-0.034) ng/mL Total Protein 6.7 (6.3-8.2) g/dL Albumin 3.9 (3.5-5.0) g/dL 08/02/17 Range/Units 22:40 WBC (3.8-10.6) k/uL RBC (3.80-5.40) m/uL Hgb (11.4-16.0) gm/dL Hct (34.0-46.0) % MCV (80.0-100.0) fL MCH (25.0-35.0) pg MCHC (31.0-37.0) g/dL RDW (11.5-15.5) % Plt Count (150-450) k/uL Neutrophils % % Lymphocytes % % Monocytes % % Eosinophils % % Basophils % % Neutrophils # (1.3-7.7) k/uL Lymphocytes # (1.0-4.8) k/uL Monocytes # (0-1.0) k/uL Eosinophils # (0-0.7) k/uL Basophils # (0-0.2) k/uL PT 10.1 (9.0-12.0) sec INR 1.0 (<1.2) APTT 25.2 (22.0-30.0) sec Sodium (137-145) mmol/L Potassium (3.5-5.1) mmol/L Chloride (98-107) mmol/L Carbon Dioxide (22-30) mmol/L Anion Gap mmol/L BUN (7-17) mg/dL Creatinine (0.52-1.04) mg/dL Est GFR (CKD-EPI)AfAm (>60 ml/min/1.73 sqM) Est GFR (CKD-EPI)NonAf (>60 ml/min/1.73 sqM) Glucose (74-99) mg/dL Calcium (8.4-10.2) mg/dL Magnesium (1.6-2.3) mg/dL Total Bilirubin (0.2-1.3) mg/dL AST (14-36) U/L ALT (9-52) U/L Alkaline Phosphatase (38-126) U/L Total Creatine Kinase (30-135) U/L CK-MB (CK-2) (0.0-2.4) ng/mL CK-MB (CK-2) Rel Index Troponin I (0.000-0.034) ng/mL Total Protein (6.3-8.2) g/dL Albumin (3.5-5.0) g/dL Disposition Clinical Impression: Palpitations, Dyspnea, Anxiety Disposition: ADMITTED IP TO THIS HOSP Condition: Good Instructions: Palpitations (ED) Referrals: Manolo Hackett MD [Primary Care Provider] - 1-2 days
[2017-08-02 23:39] LABS: Creatine Kinase MB 0.5 ng/mL (0.0-2.4); Troponin I <0.012 ng/mL (0.000-0.034)
[2017-08-03] MEDS ORDERED: NITROGLYCERIN SL TABS 0.4 MG TAB SUBLINGUAL PRN (00:07)
[2017-08-03] MEDS ORDERED: DIAZEPAM 5 MG/ML 2 ML INJ IVP STA (00:14)
[2017-08-03 06:39] LABS: Creatine Kinase 41 U/L (30-135)
[2017-08-03 06:51] LABS: Creatine Kinase MB 0.5 ng/mL (0.0-2.4); Troponin I <0.012 ng/mL (0.000-0.034)
[2017-08-03] MEDS ORDERED: METOPROLOL TARTRATE 25 MG TAB PO SCH (09:00)
--- NOTE | 2017-08-03 11:01 | CONS ---
CONSULTATION James Adorno is a 61-year-old female who came in once again with pounding and palpitations that scared her. She was taken off beta blockers because she would get very bradycardic with this and be extremely symptomatic with heart rates in the 30s. She does need a beta rachel because she has mild cardiomyopathy, ejection fraction 45% to 50% and she has known ischemic cardiomyopathy, status post stenting in May. Multiple stents placed at that time. Her 12-lead ECG shows sinus rhythm with intermittent left bundle branch block. MEDICATIONS: Medications at home include aspirin, atorvastatin, clopidogrel, Motrin and Imdur. ALLERGIES: ADHESIVE TAPE. REVIEW OF SYSTEMS: No fever, chills, or rigors. No cough or expectoration. No nausea, vomiting, or diarrhea. No hematuria or dysuria. No strokes or seizures. No skin lesions or musculoskeletal complaints. PAST MEDICAL HISTORY: Past medical history of coronary artery disease, [place], dyslipidemia, hypertension, recent coronary stenting, ischemic cardiomyopathy, mild, left ventricular ejection fraction 45% to 50%. No heart failure symptoms. PAST SURGERIES: Joint replacement, coronary stenting, ectopic with salpingectomy. She had 3 cardiac stents [place] [address] Granados. She also had a hip replacement. She has recurrent bradycardia exacerbated by beta blockers, symptomatic. FAMILY HISTORY: Family history of cancer. PHYSICAL EXAMINATION: When she came in, her blood pressure was 149/92 and 129/78 mmHg, pulse rate in the 60s to 80s, afebrile 97.3 degrees Fahrenheit. Head and neck examination is normal. Heart sounds S1, S2 normal. Lungs are clear to auscultation. Extremities are warm, no edema. IMPRESSION: 1. Tachy-kevin syndrome with very asymptomatic bradycardia even with very low doses of beta blockers. 2. Ischemic cardiomyopathy, ejection fraction 45% to 50%. 3. Coronary artery disease, status post coronary stenting in May. 4. Hypertension. 5. Dyslipidemia. SUGGEST: I had a detailed discussion with the patient and she is very worried about her symptoms as she says when she does not take a beta rachel, she starts her recurrent palpitations. She has been given multiple monitors, but no arrhythmias have been noted. Suggest dual chamber pacemaker implantation next week on Monday. This is being scheduled for her. Hibiclens bath for 5 days. Do not stop aspirin and Plavix or any medications. Thereafter, I will start her on metoprolol succinate. She will continue to follow with Dr. Granados. I left a message for Dr. Granados regarding this. MMWANG / RENEN: [id number] /
[2017-08-03] MEDS ORDERED: IBUPROFEN 200 MG TAB PO PRN (11:43)
[2017-08-03] MEDS ORDERED: LORazepam 0.5 MG TAB PO PRN (11:43)
[2017-08-03] MEDS ORDERED: HYDROcodone/APAP 7.5-325MG 1 EACH TAB PO PRN (11:43)
[2017-08-03 11:52] LABS: Creatine Kinase 47 U/L (30-135)
[2017-08-03] MEDS ORDERED: CLOPIDOGREL 75 MG TAB PO SCH (12:00)
[2017-08-03] MEDS ORDERED: ASPIRIN 81 MG PO SCH (12:00)
[2017-08-03 12:07] LABS: Creatine Kinase MB 0.5 ng/mL (0.0-2.4); Troponin I <0.012 ng/mL (0.000-0.034)
[2017-08-03 15:52] VITALS: BP 141/95; PULSE 122; RESP 18; TEMP 97.8
--- NOTE | 2017-08-03 16:07 | P.HPIM ---
History of Present Illness H&P Date: 08/03/17 Chief Complaint: Palpitations Patient is a 61-year-old male with a known history of coronary artery disease with history of stent placement on 05/21/2017, hypertension, hyperlipidemia and history of bradycardia came to the hospital with complaints of anxiety, palpitations especially with activity. No complaints of chest pain. Patient also having exertional shortness of breath. Patient was previously on metoprolol which has been discontinued due to bradycardia. Patient had multiple admissions with similar complaints. Otherwise patient denied any fever or chills. No cough is from production. No recent illnesses otherwise. TSH was within normal limits during previous admission 2-D echo showed ejection fraction 40-45%. Cardiology has been consulted. EKG showed normal sinus rhythm with sinus arrhythmia Review of Systems Constitutional: Patient denies any fever or chills . No generalized weakness or weight loss. Abdomen: Patient denied nausea vomiting and diarrhea and abdominal pain. Cardiovascular: Patient denies any chest pain. Patient does have palpitations and shortness of breath and anxiety Respiratory: patient denied any cough is from production. No shortness of breath Neurologic: Patient denied any numbness or tingling headache. Musculoskeletal: Patient denies any complaints of joint swelling or deformity. Skin: Negative Psychiatric: Anxiety Endocrine: No heat or cold intolerance. No recent weight gain. Genitourinary: No dysuria or hematuria. All other 14 point ROS negative except the above Past Medical History Past Medical History: Atrial Fibrillation, Chest Pain / Angina, GERD/Reflux, Hyperlipidemia, Hypertension, Myocardial Infarction ([place]), Osteoarthritis ([place]) Additional Past Medical History / Comment(s): Low back pain, DDD, PILI SCIATIC NERVE PAIN, lung lesion sees Dr. Reza Last Myocardial Infarction Date:: 05/2017 History of Any Multi-Drug Resistant Organisms: None Reported Past Surgical History: Heart Catheterization With Stent, Joint Replacement Additional Past Surgical History / Comment(s): Total L/R hip arthroplasty, ECTOPIC PREG - LT SALPINGECTOMY. Three cardiac stents 2017 Past Anesthesia/Blood Transfusion Reactions: No Reported Reaction Additional Past Anesthesia/Blood Transfusion Reaction / Comment(s): after hip replacement last time had very slow pulse Date of Last Stent Placement:: 05-21-2017 Past Psychological History: Anxiety Additional Psychological History / Comment(s): Pt resides alone. Pt normally is independent with her ADls. She drives a car. Smoking Status: Former smoker Past Alcohol Use History: None Reported Additional Past Alcohol Use History / Comment(s): quit smoking November 2016, started smoking at age of 13, smoked 1ppd Past Drug Use History: None Reported - Past Family History Mother Family Medical History: Cancer Additional Family Medical History / Comment(s): Pancreatic with mets. Mother at age 68yrs. Father Family Medical History: Cancer Additional Family Medical History / Comment(s): Small cell lung carcinoma. Medications and Allergies Home Medications Medication Instructions Recorded Confirmed Type Aspirin 81 mg PO DAILY 05/04/17 08/03/17 History Atorvastatin [Lipitor] 40 mg PO HS 07/28/17 08/03/17 History Clopidogrel [Plavix] 75 mg PO DAILY 07/28/17 08/03/17 History Hydrocodone/Acetaminophen 0.5 tab PO BID PRN 07/29/17 08/03/17 History [Hydrocodon-Acetaminoph 7.5-325] LORazepam [Ativan] 0.5 mg PO BID PRN #20 tab 07/29/17 08/03/17 Rx Ibuprofen [Motrin Ib] 200 mg PO Q6H PRN 08/02/17 08/03/17 History Allergies Allergy/AdvReac Type Severity Reaction Status Date / Time adhesive tape AdvReac SKIN TEAR Verified 08/03/17 01:44 Physical Exam Vitals: Vital Signs Temp Pulse Pulse Resp BP BP Pulse Ox 08/03/17 11:42 98 F 63 16 143/74 97 08/03/17 09:11 98 08/03/17 08:00 16 08/03/17 07:21 97.5 F L 62 16 119/70 94 L 08/03/17 01:47 16 08/03/17 01:32 97.5 F L 62 16 139/87 98 08/03/17 00:23 97.5 F L 52 L 14 155/83 100 08/02/17 23:55 97.0 F L 56 L 14 141/80 100 08/02/17 23:13 75 16 155/87 98 08/02/17 22:52 68 08/02/17 22:41 64 16 129/78 99 08/02/17 22:13 97.3 F L 83 16 149/92 100 Intake and Output 08/02/17 08/03/17 08/03/17 22:59 06:59 14:59 Other: Voiding Method Toilet Toilet # Voids 1 Weight 71.668 kg PHYSICAL EXAMINATION: Patient is lying in the bed comfortably, no acute distress, awake alert and oriented. Patient seems anxious. HEENT: Normocephalic. Neck is supple. Pupils reactive. Nostrils clear. Oral cavity is moist. Ears reveal no drainage. Neck reveals no JVD, carotid bruits, or thyromegaly. CHEST EXAMINATION: Trachea is central. Symmetrical expansion. Lung cervantes clear to auscultation and percussion. CARDIAC: Normal S1, S2 with no gallops. No murmurs ABDOMEN: Soft. Bowel sounds normal. No organomegaly. No abdominal bruits. Extremities: reveal no edema. No clubbing or cyanosis Neurologically awake, alert, oriented x3 with well-coordinated movements. No focal deficits noted Skin: No rash or skin lesions. Psychiatric: Cooperative. Nonsuicidal Musculoskeletal: No joint swelling or deformity. Normal range of motion. Results CBC & Chem 7: 08/02/17 22:40 08/02/17 22:40 Labs: Abnormal Lab Results - Last 24 Hours (Table) 08/02/17 Range/Units 22:40 Carbon Dioxide 21 L (22-30) mmol/L Glucose 114 H (74-99) mg/dL Thrombosis Risk Factor Assmnt - Choose All That Apply Any of the Below Risk Factors Present?: Yes Each Factor Represents 1 point: Age 41-60 years, Obesity (BMI >25) Other Risk Factors: No Other congenital or acquired thrombophilia - If yes, enter type in comment: No Thrombosis Risk Factor Assessment Total Risk Factor Score: 2 Thrombosis Risk Factor Assessment Level: Low Risk Assessment and Plan Assessment: Tachybradycardia arrhythmia. Ischemic cardiopathy ejection fraction 45-50% Coronary artery disease with history of stent 3 placement in May 2017 Hypertension Hyperlipidemia Anxiety next and are sure that this neck and GERD Bilateral sciatic nerve pain next and low back pain DVT prophylaxis Previous history of smoking Plan: Patient will be continued on telemetry monitoring. Beta blockers will be continued on hold. Cardiology has seen the patient and recommended pacemaker placement and follow-up as an outpatient. Patient recently had 2-D echo echocardiogram. Further recommendations based on the clinical course. Time with Patient: Greater than 30
--- NOTE | 2017-08-03 16:09 | P.DS ---
Providers Date of admission: 08/03/17 00:10 Expected date of discharge: 08/03/17 Attending physician: Emily Correa Consults: 08/03/17 00:10 Consult Physician Urgent Consulting Provider: Anselmo Shah Consult Reason/Comments: palpitations Do you want consulting provider notified?: Yes Primary care physician: [facility] Course: Discharge diagnosis Tachybradycardia arrhythmia. Scheduled for outpatient pacemaker placement Ischemic cardiopathy ejection fraction 45-50% Coronary artery disease with history of stent 3 placement in May 2017 Hypertension Hyperlipidemia Anxiety next and are sure that this neck and GERD Bilateral sciatic nerve pain next and low back pain DVT prophylaxis Previous history of smoking Hospital course Patient is a 61-year-old male with a known history of coronary artery disease with history of stent placement on 05/21/2017, hypertension, hyperlipidemia and history of bradycardia came to the hospital with complaints of anxiety, palpitations especially with activity. No complaints of chest pain. Patient also having exertional shortness of breath. Patient was previously on metoprolol which has been discontinued due to bradycardia. Patient had multiple admissions with similar complaints. Otherwise patient denied any fever or chills. No cough is from production. No recent illnesses otherwise. TSH was within normal limits during previous admission 2-D echo showed ejection fraction 45-50%. Cardiology has been consulted. EKG showed normal sinus rhythm with sinus arrhythmia. Patient was continued on telemetry monitoring. Serial EKGs and troponins are negative. TSH was within normal limits during last admission. Cardiology recommends pacemaker placement and outpatient follow-up. Otherwise patient is symptomatically improved. Discharge physical examination was done. Vital Signs - 24 hr 08/02/17 08/02/17 08/02/17 22:13 22:41 22:52 Temperature 97.3 F L Pulse Rate 83 64 Pulse Rate [ 68 Right] Respiratory 16 16 Rate Blood Pressure 149/92 129/78 Blood Pressure [Left Arm] O2 Sat by Pulse 100 99 Oximetry 08/02/17 08/02/17 08/03/17 23:13 23:55 00:23 Temperature 97.0 F L 97.5 F L Pulse Rate 75 56 L 52 L Pulse Rate [ Right] Respiratory 16 14 14 Rate Blood Pressure 155/87 141/80 155/83 Blood Pressure [Left Arm] O2 Sat by Pulse 98 100 100 Oximetry 08/03/17 08/03/17 08/03/17 01:32 01:47 07:21 Temperature 97.5 F L 97.5 F L Pulse Rate Pulse Rate [ 62 62 Right] Respiratory 16 16 16 Rate Blood Pressure Blood Pressure 139/87 119/70 [Left Arm] O2 Sat by Pulse 98 94 L Oximetry 08/03/17 08/03/17 08/03/17 08:00 09:11 11:42 Temperature 98 F Pulse Rate Pulse Rate [ 63 Right] Respiratory 16 16 Rate Blood Pressure Blood Pressure 143/74 [Left Arm] O2 Sat by Pulse 98 97 Oximetry 08/03/17 15:50 Temperature 97.8 F Pulse Rate Pulse Rate [ 122 H Right] Respiratory 18 Rate Blood Pressure Blood Pressure 141/95 [Left Arm] O2 Sat by Pulse Oximetry Patient Condition at Discharge: Good Plan - Discharge Summary Discharge Rx Participant: No New Discharge Prescriptions: No Action Aspirin 81 mg PO DAILY Clopidogrel [Plavix] 75 mg PO DAILY Atorvastatin [Lipitor] 40 mg PO HS Hydrocodone/Acetaminophen [Hydrocodon-Acetaminoph 7.5-325] 0.5 tab PO BID PRN PRN Reason: Moderate Pain LORazepam [Ativan] 0.5 mg PO BID PRN #20 tab PRN Reason: Anxiety Ibuprofen [Motrin Ib] 200 mg PO Q6H PRN PRN Reason: Pain Discharge Medication List Aspirin 81 mg PO DAILY 05/04/17 [History] Atorvastatin [Lipitor] 40 mg PO HS 07/28/17 [History] Clopidogrel [Plavix] 75 mg PO DAILY 07/28/17 [History] Hydrocodone/Acetaminophen [Hydrocodon-Acetaminoph 7.5-325] 0.5 tab PO BID PRN [History] LORazepam [Ativan] 0.5 mg PO BID PRN #20 tab 07/29/17 [Rx] Ibuprofen [Motrin Ib] 200 mg PO Q6H PRN 08/02/17 [History] Follow up Appointment(s)/Referral(s): Manolo Hackett MD [Primary Care Provider] - 1-2 days Rhett Granados MD [STAFF PHYSICIAN] - 2 Weeks (Patient Will Called at home per Dot.) Patient Instructions/Handouts: Palpitations (ED)
[2017-08-03] MEDS ORDERED: ATORVASTATIN 40 MG TAB PO SCH (21:00)
== END 2017-08-03 17:25 | disposition home or self-care (01) ==
LOC: EC 22:12 → 3OBS 08-03 00:10
PROVIDERS: ADMIT Hospitalist; ATTEND Hospitalist
DX: I49.5 Sick sinus syndrome (principal); I25.5 Ischemic cardiomyopathy; I25.10 Atherosclerotic heart disease of native coronary artery without angina pectoris; I48.91 Unspecified atrial fibrillation; K21.9 Gastro-esophageal reflux disease without esophagitis; E78.5 Hyperlipidemia, unspecified; I10 Essential (primary) hypertension; M19.90 Unspecified osteoarthritis, unspecified site; F41.9 Anxiety disorder, unspecified; M54.40 Lumbago with sciatica, unspecified side; E66.9 Obesity, unspecified; Z68.27 Body mass index [BMI] 27.0-27.9, adult; Z79.02 Long term (current) use of antithrombotics/antiplatelets; Z79.82 Long term (current) use of aspirin; Z79.899 Other long term (current) drug therapy; Z91.048 Other nonmedicinal substance allergy status; Z95.5 Presence of coronary angioplasty implant and graft; Z87.891 Personal history of nicotine dependence; I25.2 Old myocardial infarction; Z80.1 Family history of malignant neoplasm of trachea, bronchus and lung; Z80.0 Family history of malignant neoplasm of digestive organs
CPT/HCPCS: 99285 ×2; 96374 ×2; 36415; 93005; 80053; 82550 ×2; 82553 ×2; 83735; 84484 ×2; 85025; 85610; 85730; G0378; J3360

== ENCOUNTER 2017-08-05 18:23 | Observation (INO) | payer MEDICARE ==
[2017-08-05 19:34] LABS: Basophils % (A) 0 %; Eosinophils # (A) 0.1 k/uL (0-0.7); Eosinophils % (A) 2 %; HCT 38.3 % (34.0-46.0); HGB 12.8 gm/dL (11.4-16.0); Lymphocytes # (A) 1.6 k/uL (1.0-4.8); Lymphocytes % (A) 23 %; MCH 28.9 pg (25.0-35.0); MCHC 33.4 g/dL (31.0-37.0); MCV 86.7 fL (80.0-100.0); Mean Platelet Volume 7.6; Monocytes # (A) 0.4 k/uL (0-1.0); Monocytes % (A) 6 %; Neutrophils # (A) 4.6 k/uL (1.3-7.7); Neutrophils % (A) 68 %; Platelet Count 261 k/uL (150-450); RBC 4.41 m/uL (3.80-5.40); RDW 12.9 % (11.5-15.5); WBC 6.8 k/uL (3.8-10.6)
--- NOTE | 2017-08-05 19:37 | XR ---
EXAMINATION TYPE: XR chest 2V DATE OF EXAM: 08/05/2017 COMPARISON: Chest x-ray July 28, 2017. HISTORY: Dysrhythmia per order. TECHNIQUE: Frontal and lateral views of the chest are obtained. FINDINGS: There is no focal air space opacity, pleural effusion, or pneumothorax seen. The cardiac silhouette size is within normal limits. The osseous structures are intact. IMPRESSION: No acute cardiopulmonary process. No significant change from prior.
[2017-08-05 19:42] LABS: ALT 33 U/L (9-52); AST 28 U/L (14-36); Albumin 4.3 g/dL (3.5-5.0); Alkaline Phosphatase 93 U/L (38-126); Anion Gap 15 mmol/L; Blood Urea Nitrogen 12 mg/dL (7-17); Calcium 10.1 mg/dL (8.4-10.2); Carbon Dioxide 23 mmol/L (22-30); Chloride 107 mmol/L (98-107); Glucose 102 mg/dL (74-99); Partial Thromboplastin Time 24.3 sec (22.0-30.0); Potassium 3.9 mmol/L (3.5-5.1); Prothrombin Time 10.2 sec (9.0-12.0); Sodium 145 mmol/L (137-145); Total Bilirubin 0.4 mg/dL (0.2-1.3); Total Protein 7.4 g/dL (6.3-8.2)
[2017-08-05 19:56] LABS: Creatine Kinase 40 U/L (30-135)
[2017-08-05 20:09] LABS: Creatine Kinase MB 0.4 ng/mL (0.0-2.4); Troponin I <0.012 ng/mL (0.000-0.034)
[2017-08-05] MEDS ORDERED: MORPHINE ORAL SOLN 10 MG/5 ML CUP PO PRN (21:03)
[2017-08-05] MEDS ORDERED: NITROGLYCERIN SL TABS 0.4 MG TAB SUBLINGUAL PRN (21:03)
--- NOTE | 2017-08-05 21:03 | ED ---
Arrhythmia/Palpitations HPI - General Chief Complaint: Arrhythmia/Palpitations Stated Complaint: rapid heart rate Time Seen by Provider: 08/05/17 19:04 Source: patient Mode of arrival: wheelchair Limitations: no limitations - History of Present Illness Initial Comments: 31 years O female presents with a palpitation she has a history of heart disease , she said palpitation get more pronounced when she is busy or when she is exerting herself address heart rate stays normal but he takes off with a minimal activity and she is wondering she was on metoprolol which caused her heart rate to go really low once that was discontinued her, she was not put on any other medications she denies any chest pain no shortness of breath no pleuritic chest pain that she states she did notice some chest pressure after now early-morning 3 AM and lasted for about an hour review of system is otherwise unremarkable - Related Data Home Medications Medication Instructions Recorded Confirmed Aspirin 81 mg PO DAILY 05/04/17 08/05/17 Atorvastatin [Lipitor] 40 mg PO HS 07/28/17 08/05/17 Clopidogrel [Plavix] 75 mg PO DAILY 07/28/17 08/05/17 Hydrocodone/Acetaminophen 0.5 tab PO BID PRN 07/29/17 08/05/17 [Hydrocodon-Acetaminoph 7.5-325] Ibuprofen [Motrin Ib] 200 mg PO Q6H PRN 08/02/17 08/05/17 LORazepam [Ativan] 0.5 mg PO BID 08/05/17 08/05/17 Allergies Allergy/AdvReac Type Severity Reaction Status Date / Time adhesive tape AdvReac SKIN TEAR Verified 08/05/17 19:14 Review of Systems ROS Statement: Those systems with pertinent positive or pertinent negative responses have been documented in the HPI. ROS Other: All systems not noted in ROS Statement are negative. Past Medical History Past Medical History: Atrial Fibrillation, Chest Pain / Angina, GERD/Reflux, Hyperlipidemia, Hypertension, Myocardial Infarction ([place]), Osteoarthritis ([place]) Additional Past Medical History / Comment(s): Low back pain, DDD, PILI SCIATIC NERVE PAIN, lung lesion sees Dr. Reza Last Myocardial Infarction Date:: 05/2017 History of Any Multi-Drug Resistant Organisms: None Reported Past Surgical History: Heart Catheterization With Stent, Joint Replacement Additional Past Surgical History / Comment(s): Total L/R hip arthroplasty, ECTOPIC PREG - LT SALPINGECTOMY. Three cardiac stents 2017 Past Anesthesia/Blood Transfusion Reactions: No Reported Reaction Additional Past Anesthesia/Blood Transfusion Reaction / Comment(s): after hip replacement last time had very slow pulse Date of Last Stent Placement:: 05-21-2017 Past Psychological History: Anxiety Smoking Status: Former smoker Past Alcohol Use History: None Reported Past Drug Use History: None Reported - Past Family History Mother Family Medical History: Cancer Additional Family Medical History / Comment(s): Pancreatic with mets. Mother at age 68yrs. Father Family Medical History: Cancer Additional Family Medical History / Comment(s): Small cell lung carcinoma. General Exam - General Exam Comments Initial Comments: General: The patient is awake and alert, in no distress, and does not appear acutely ill. Skin: Skin is warm and dry and no rashes or lesions are noted. Eye: Pupils are equal, round and reactive to light, extra-ocular movements are intact; there is normal conjunctiva bilaterally. Ears, nose, mouth and throat: There are moist mucous membranes and no oral lesions. Neck: The neck is supple, there is no tenderness or JVD. Cardiovascular: There is a regular rate and rhythm. No murmur, rub or gallop is appreciated. Respiratory: To auscultation bilateral, no wheezing no rhonchi no distress respiratory driver noticed Gastrointestinal: Soft, non-distended, non-tender abdomen without masses or organomegaly noted. There is no rebound or guarding present. Bowel sounds are unremarkable. Back: There is no tenderness to palpation in the midline. There is no obvious deformity. Musculoskeletal: Normal ROM, no tenderness, There is no pedal edema. There is no calf tenderness or swelling. No cords were appreciated. Neurological: CN II-XII intact, Cranial nerves III through XII are intact. There are no obvious motor or sensory deficits. Coordination appears grossly intact. Speech is normal. Psychiatric: Cooperative, appropriate mood & affect, normal judgment. Limitations: no limitations Course Vital Signs 08/05/17 08/05/17 08/05/17 18:30 19:21 19:59 Temperature 97.8 F Pulse Rate 79 80 Pulse Rate [ 78 Sitting Air Route Controller] Pulse Rate [ 96 Standing Air Route Controller ] Pulse Rate [ 68 Supine Air Route Controller] Respiratory 18 18 Rate Blood Pressure 137/88 135/85 Blood Pressure 152/88 [Right Arm Sitting] Blood Pressure 156/95 [Right Arm Standing] Blood Pressure 134/77 [Right Arm Supine] O2 Sat by Pulse 99 99 Oximetry 08/05/17 20:31 Temperature Pulse Rate 72 Pulse Rate [ Sitting Air Route Controller] Pulse Rate [ Standing Air Route Controller ] Pulse Rate [ Supine Air Route Controller] Respiratory 18 Rate Blood Pressure 132/80 Blood Pressure [Right Arm Sitting] Blood Pressure [Right Arm Standing] Blood Pressure [Right Arm Supine] O2 Sat by Pulse 98 Oximetry Centering her history of heart disease and she gets quite tachycardic when she ambulates bare minimal walking inside ER bumped up her heart rate from 66-10 and will observe her and her doctor or service and cardiology be consulted comfortable putting on any beta blockers considering last time she was on his minimal dose of beta blockers in and cause symptomatic bradycardia heart treatment and 25 EKG Findings - EKG Comments: EKG Findings:: KG is normal sinus rhythm ventricular rate is 1673 DC interval is 166 QRS duration is 136 QT/QTc is 436/469 review of this EKG shows left bundle branch block Medical Decision Making - Lab Data Result diagrams: 08/05/17 19:15 08/05/17 19:15 Lab Results 08/05/17 08/05/17 08/05/17 Range/Units 19:15 19:15 19:15 WBC 6.8 (3.8-10.6) k/uL RBC 4.41 (3.80-5.40) m/uL Hgb 12.8 (11.4-16.0) gm/dL Hct 38.3 (34.0-46.0) % MCV 86.7 (80.0-100.0) fL MCH 28.9 (25.0-35.0) pg MCHC 33.4 (31.0-37.0) g/dL RDW 12.9 (11.5-15.5) % Plt Count 261 (150-450) k/uL Neutrophils % 68 % Lymphocytes % 23 % Monocytes % 6 % Eosinophils % 2 % Basophils % 0 % Neutrophils # 4.6 (1.3-7.7) k/uL Lymphocytes # 1.6 (1.0-4.8) k/uL Monocytes # 0.4 (0-1.0) k/uL Eosinophils # 0.1 (0-0.7) k/uL Basophils # 0.0 (0-0.2) k/uL PT (9.0-12.0) sec INR (<1.2) APTT (22.0-30.0) sec Sodium 145 (137-145) mmol/L Potassium 3.9 (3.5-5.1) mmol/L Chloride 107 (98-107) mmol/L Carbon Dioxide 23 (22-30) mmol/L Anion Gap 15 mmol/L BUN 12 (7-17) mg/dL Creatinine 0.70 (0.52-1.04) mg/dL Est GFR (CKD-EPI)AfAm >90 (>60 ml/min/1.73 sqM) Est GFR (CKD-EPI)NonAf >90 (>60 ml/min/1.73 sqM) Glucose 102 H (74-99) mg/dL Calcium 10.1 (8.4-10.2) mg/dL Magnesium 2.0 (1.6-2.3) mg/dL Total Bilirubin 0.4 (0.2-1.3) mg/dL AST 28 (14-36) U/L ALT 33 (9-52) U/L Alkaline Phosphatase 93 (38-126) U/L Total Creatine Kinase 40 (30-135) U/L CK-MB (CK-2) 0.4 (0.0-2.4) ng/mL CK-MB (CK-2) Rel Index 1.0 Troponin I <0.012 (0.000-0.034) ng/mL Total Protein 7.4 (6.3-8.2) g/dL Albumin 4.3 (3.5-5.0) g/dL 08/05/17 Range/Units 19:15 WBC (3.8-10.6) k/uL RBC (3.80-5.40) m/uL Hgb (11.4-16.0) gm/dL Hct (34.0-46.0) % MCV (80.0-100.0) fL MCH (25.0-35.0) pg MCHC (31.0-37.0) g/dL RDW (11.5-15.5) % Plt Count (150-450) k/uL Neutrophils % % Lymphocytes % % Monocytes % % Eosinophils % % Basophils % % Neutrophils # (1.3-7.7) k/uL Lymphocytes # (1.0-4.8) k/uL Monocytes # (0-1.0) k/uL Eosinophils # (0-0.7) k/uL Basophils # (0-0.2) k/uL PT 10.2 (9.0-12.0) sec INR 1.0 (<1.2) APTT 24.3 (22.0-30.0) sec Sodium (137-145) mmol/L Potassium (3.5-5.1) mmol/L Chloride (98-107) mmol/L Carbon Dioxide (22-30) mmol/L Anion Gap mmol/L BUN (7-17) mg/dL Creatinine (0.52-1.04) mg/dL Est GFR (CKD-EPI)AfAm (>60 ml/min/1.73 sqM) Est GFR (CKD-EPI)NonAf (>60 ml/min/1.73 sqM) Glucose (74-99) mg/dL Calcium (8.4-10.2) mg/dL Magnesium (1.6-2.3) mg/dL Total Bilirubin (0.2-1.3) mg/dL AST (14-36) U/L ALT (9-52) U/L Alkaline Phosphatase (38-126) U/L Total Creatine Kinase (30-135) U/L CK-MB (CK-2) (0.0-2.4) ng/mL CK-MB (CK-2) Rel Index Troponin I (0.000-0.034) ng/mL Total Protein (6.3-8.2) g/dL Albumin (3.5-5.0) g/dL Disposition Clinical Impression: Chest pressure, Palpitations Disposition: ADMITTED IP TO THIS HOSP Condition: Good Referrals: Manool Hackett MD [Primary Care Provider] - 1-2 days
[2017-08-05] MEDS ORDERED: HYDROcodone/APAP 7.5-325MG 1 EACH TAB PO PRN (21:07)
[2017-08-05] MEDS ORDERED: IBUPROFEN 200 MG TAB PO PRN (21:07)
[2017-08-05] MEDS ORDERED: ATORVASTATIN 40 MG TAB PO SCH (22:14)
[2017-08-05] MEDS: LORazepam 0.5 MG TAB PO SCH (22:48)
[2017-08-06 02:12] LABS: Creatine Kinase 32 U/L (30-135)
[2017-08-06 02:26] LABS: Creatine Kinase MB 0.4 ng/mL (0.0-2.4); Troponin I <0.012 ng/mL (0.000-0.034)
[2017-08-06 07:55] LABS: Cholesterol 126 mg/dL (<200); HDL Cholesterol 60 mg/dL (40-60); LDL Cholesterol,Calculated 51 mg/dL (0-99); Triglycerides 74 mg/dL (<150)
[2017-08-06 08:09] LABS: Creatine Kinase 32 U/L (30-135)
[2017-08-06 08:20] LABS: Creatine Kinase MB 0.4 ng/mL (0.0-2.4); Troponin I <0.012 ng/mL (0.000-0.034)
[2017-08-06] MEDS ORDERED: ASPIRIN 325 MG TAB PO SCH (09:00)
[2017-08-06] MEDS ORDERED: LORazepam 0.5 MG TAB PO SCH (09:00)
[2017-08-06] MEDS ORDERED: CLOPIDOGREL 75 MG TAB PO SCH (09:00)
[2017-08-06 10:30] VITALS: RESP 16
--- NOTE | 2017-08-06 11:26 | P.CRDCN ---
History of Present Illness Consult date: 08/06/17 Chief complaint: Palpitations History of present illness: This is a pleasant 61-year-old female patient with a past medical history significant for coronary artery disease and prior coronary artery stenting as well as dyslipidemia presented to the hospital again complaining of palpitations. She was in her usual state of health yesterday when she started noticing heart racing and fluttering associated with dizziness and lightheadedness without any chest pain or chest discomfort. She was seen last week year and she was scheduled to undergo a permanent pacemaker implantation this coming Monday for possible tachybradycardia syndrome. The patient has been hemodynamically stable. She has been asymptomatic. She was ruled out for acute coronary syndrome. From the cardiac vascular standpoint of view, she can be discharged home. Past Medical History Past Medical History: Atrial Fibrillation, Chest Pain / Angina, GERD/Reflux, Hyperlipidemia, Hypertension, Myocardial Infarction (DC), Osteoarthritis (OA) Additional Past Medical History / Comment(s): Low back pain, DDD, PILI SCIATIC NERVE PAIN, lung lesion sees Dr. Reza. plan for pacer 08/08/17 Last Myocardial Infarction Date:: 05/2017 History of Any Multi-Drug Resistant Organisms: None Reported Past Surgical History: Heart Catheterization With Stent, Joint Replacement Additional Past Surgical History / Comment(s): Total L/R hip arthroplasty, ECTOPIC PREG - LT SALPINGECTOMY. Three cardiac stents 2017 Past Anesthesia/Blood Transfusion Reactions: No Reported Reaction Additional Past Anesthesia/Blood Transfusion Reaction / Comment(s): after hip replacement last time had very slow pulse Date of Last Stent Placement:: 05-21-2017 Smoking Status: Former smoker - Past Family History Mother Family Medical History: Cancer Additional Family Medical History / Comment(s): Pancreatic with mets. Mother at age 68yrs. Father Family Medical History: Cancer Additional Family Medical History / Comment(s): Small cell lung carcinoma. Medications and Allergies Home Medications Medication Instructions Recorded Confirmed Type Aspirin 81 mg PO DAILY 05/04/17 08/05/17 History Atorvastatin [Lipitor] 40 mg PO HS 07/28/17 08/05/17 History Clopidogrel [Plavix] 75 mg PO DAILY 07/28/17 08/05/17 History Hydrocodone/Acetaminophen 0.5 tab PO BID PRN 07/29/17 08/05/17 History [Hydrocodon-Acetaminoph 7.5-325] Ibuprofen [Motrin Ib] 200 mg PO Q6H PRN 08/02/17 08/05/17 History LORazepam [Ativan] 0.5 mg PO BID 08/05/17 08/05/17 History Allergies Allergy/AdvReac Type Severity Reaction Status Date / Time adhesive tape AdvReac SKIN TEAR Verified 08/05/17 22:13 Physical Exam Vitals: Vital Signs Temp Pulse Pulse Pulse Pulse Pulse Resp 08/06/17 08:00 97.7 F 62 16 08/06/17 07:45 18 08/06/17 07:28 08/06/17 03:59 97.8 F 50 L 18 08/06/17 03:22 18 08/06/17 00:11 98.3 F 88 18 08/05/17 22:40 97.8 F 75 18 08/05/17 22:29 16 08/05/17 21:34 97.6 F 67 16 08/05/17 20:31 72 18 08/05/17 19:59 78 96 68 08/05/17 19:21 80 18 08/05/17 18:30 97.8 F 79 18 BP BP BP BP Pulse Ox 08/06/17 08:00 116/74 94 L 08/06/17 07:45 08/06/17 07:28 99 08/06/17 03:59 108/58 95 08/06/17 03:22 08/06/17 00:11 119/77 97 08/05/17 22:40 168/99 97 08/05/17 22:29 08/05/17 21:34 128/87 95 08/05/17 20:31 132/80 98 08/05/17 19:59 152/88 156/95 134/77 08/05/17 19:21 135/85 99 08/05/17 18:30 137/88 99 Intake and Output 08/05/17 08/06/17 08/06/17 22:59 06:59 14:59 Other: Voiding Method Toilet Toilet Toilet # Voids 3 Weight 70.307 kg - Constitutional General appearance: no acute distress - Respiratory Respiratory: bilateral: CTA - Cardiovascular Rhythm: regular Heart sounds: normal: S1, S2 Results 08/05/17 19:15 04/07/18 19:15 Cardiac Enzymes 08/05/17 08/05/17 08/06/17 Range/Units 19:15 19:15 01:25 AST 28 (14-36) U/L CK-MB (CK-2) 0.4 0.4 (0.0-2.4) ng/mL Troponin I <0.012 <0.012 (0.000-0.034) ng/mL 08/06/17 Range/Units 07:23 AST (14-36) U/L CK-MB (CK-2) 0.4 (0.0-2.4) ng/mL Troponin I <0.012 (0.000-0.034) ng/mL Coagulation 08/05/17 Range/Units 19:15 PT 10.2 (9.0-12.0) sec APTT 24.3 (22.0-30.0) sec Lipids 08/06/17 Range/Units 07:23 Triglycerides 74 (<150) mg/dL Cholesterol 126 (<200) mg/dL HDL Cholesterol 60 (40-60) mg/dL CBC 08/05/17 Range/Units 19:15 WBC 6.8 (3.8-10.6) k/uL RBC 4.41 (3.80-5.40) m/uL Hgb 12.8 (11.4-16.0) gm/dL Hct 38.3 (34.0-46.0) % Plt Count 261 (150-450) k/uL Comprehensive Metabolic Panel 08/05/17 Range/Units 19:15 Sodium 145 (137-145) mmol/L Potassium 3.9 (3.5-5.1) mmol/L Chloride 107 (98-107) mmol/L Carbon Dioxide 23 (22-30) mmol/L BUN 12 (7-17) mg/dL Creatinine 0.70 (0.52-1.04) mg/dL Glucose 102 H (74-99) mg/dL Calcium 10.1 (8.4-10.2) mg/dL AST 28 (14-36) U/L ALT 33 (9-52) U/L Alkaline Phosphatase 93 (38-126) U/L Total Protein 7.4 (6.3-8.2) g/dL Albumin 4.3 (3.5-5.0) g/dL Current Medications Generic Name Dose Route Start Last Admin Trade Name Freq PRN Reason Stop Dose Admin Hydrocodone Bitart/Acetaminophen 0.5 each 08/05/17 21:07 08/06/17 06:40 [place] 7.5-325 PO 0.5 each BID PRN Administration Moderate Pain Aspirin 325 mg 08/06/17 09:00 Aspirin PO DAILY [facility] Atorvastatin Calcium 40 mg 08/05/17 22:14 08/05/17 22:48 Lipitor PO 40 mg HS DORIS Administration Clopidogrel Bisulfate 75 mg 08/06/17 09:00 Plavix PO DAILY [facility] Ibuprofen 200 mg 08/05/17 21:07 Advil PO Q6H PRN Mild Pain Lorazepam 0.5 mg 08/05/17 22:15 08/05/17 22:48 Ativan PO 0.5 mg BID DORIS Administration Morphine Sulfate 6 mg 08/05/17 21:03 Morphine Oral [place] 2mg/Ml PO Q5M PRN Chest Pain Nitroglycerin 0.4 mg 08/05/17 21:03 Nitrostat SUBLINGUAL Q5M PRN Chest Pain Intake and Output 08/05/17 08/06/17 08/06/17 22:59 06:59 14:59 Other: Voiding Method Toilet Toilet Toilet # Voids 3 Weight 70.307 kg 08/05/17 19:15 08/05/17 19:15 Assessment and Plan Assessment: Assessment #1 coronary artery disease and status post a stenting #2 tachybradycardia syndrome Plan #1 the patient and be discharged home #2 she scheduled to undergo a pacemaker this coming Monday.
[2017-08-06] MEDS: LORazepam 0.5 MG TAB PO SCH (12:05)
[2017-08-06 12:48] VITALS: BP 113/78; PULSE 77; TEMP 98.1
--- NOTE | 2017-08-06 17:54 | P.HPIM ---
History of Present Illness H&P Date: 08/06/17 Chief Complaint: Palpitations This is a pleasant 61-year-old female patient with a past medical history significant for coronary artery disease and prior coronary artery stenting as well as dyslipidemia presented to the hospital again complaining of palpitations. She was in her usual state of health yesterday when she started noticing heart racing and fluttering associated with dizziness and lightheadedness without any chest pain or chest discomfort. She was seen last week year and she was scheduled to undergo a permanent pacemaker implantation this coming Monday for possible tachybradycardia syndrome. Review of Systems Constitutional: Reports chills, Reports fever Eyes: denies blurred vision, denies loss of vision Ears: deny: decreased hearing Ears, nose, mouth and throat: Reports headache, Reports nasal congestion, Reports sore throat Cardiovascular: Reports chest pain, Reports palpitations Respiratory: Denies cough with sputum Gastrointestinal: Denies abdominal pain, Denies nausea, Denies vomiting Genitourinary: Denies hematuria, Denies nocturia Musculoskeletal: Denies leg numbness/tingling, Denies myalgias Integumentary: Denies darkening of skin, Denies depigmentation, Denies rash Neurological: Denies double vision, Denies lack of coordination, Denies weakness Psychiatric: Denies anxiety Endocrine: Denies cold intolerance, Denies heat intolerance Hematologic/Lymphatic: Denies easy bleeding, Denies lymphadenopathy Past Medical History Past Medical History: Atrial Fibrillation, Chest Pain / Angina, GERD/Reflux, Hyperlipidemia, Hypertension, Myocardial Infarction (CT), Osteoarthritis (OA) Additional Past Medical History / Comment(s): Low back pain, DDD, PILI SCIATIC NERVE PAIN, lung lesion sees Dr. Reza. plan for pacer 08/08/17 Last Myocardial Infarction Date:: 05/2017 History of Any Multi-Drug Resistant Organisms: None Reported Past Surgical History: Heart Catheterization With Stent, Joint Replacement Additional Past Surgical History / Comment(s): Total L/R hip arthroplasty, ECTOPIC PREG - LT SALPINGECTOMY. Three cardiac stents 2017 Past Anesthesia/Blood Transfusion Reactions: No Reported Reaction Additional Past Anesthesia/Blood Transfusion Reaction / Comment(s): after hip replacement last time had very slow pulse Date of Last Stent Placement:: 05-21-2017 Smoking Status: Former smoker - Past Family History Mother Family Medical History: Cancer Additional Family Medical History / Comment(s): Pancreatic with mets. Mother at age 68yrs. Father Family Medical History: Cancer Additional Family Medical History / Comment(s): Small cell lung carcinoma. Medications and Allergies Home Medications Medication Instructions Recorded Confirmed Type Aspirin 81 mg PO DAILY 05/04/17 08/05/17 History Atorvastatin [Lipitor] 40 mg PO HS 07/28/17 08/05/17 History Clopidogrel [Plavix] 75 mg PO DAILY 07/28/17 08/05/17 History Hydrocodone/Acetaminophen 0.5 tab PO BID PRN 07/29/17 08/05/17 History [Hydrocodon-Acetaminoph 7.5-325] Ibuprofen [Motrin Ib] 200 mg PO Q6H PRN 08/02/17 08/05/17 History LORazepam [Ativan] 0.5 mg PO BID 08/05/17 08/05/17 History Allergies Allergy/AdvReac Type Severity Reaction Status Date / Time adhesive tape AdvReac SKIN TEAR Verified 08/05/17 22:13 Physical Exam Vitals: Vital Signs Temp Pulse Pulse Pulse Pulse Pulse Pulse 08/06/17 12:00 98.1 F 62 77 78 96 68 08/06/17 08:00 97.7 F 62 08/06/17 07:45 08/06/17 07:28 08/06/17 03:59 97.8 F 50 L 08/06/17 03:22 08/06/17 00:11 98.3 F 88 08/05/17 22:40 97.8 F 75 08/05/17 22:29 08/05/17 21:34 97.6 F 67 08/05/17 20:31 72 08/05/17 19:59 78 96 68 08/05/17 19:21 80 08/05/17 18:30 97.8 F 79 Resp BP BP BP BP BP Pulse Ox 08/06/17 12:00 16 113/78 96 08/06/17 08:00 16 116/74 94 L 08/06/17 07:45 18 08/06/17 07:28 99 08/06/17 03:59 18 108/58 95 08/06/17 03:22 18 08/06/17 00:11 18 119/77 97 08/05/17 22:40 18 168/99 97 08/05/17 22:29 16 04/07/18 21:34 16 128/87 95 08/05/17 20:31 18 132/80 98 08/05/17 19:59 152/88 156/95 134/77 08/05/17 19:21 18 135/85 99 08/05/17 18:30 18 137/88 99 Intake and Output 08/05/17 08/06/17 08/06/17 22:59 06:59 14:59 Other: Voiding Method Toilet Toilet Toilet # Voids 3 Weight 70.307 kg - Constitutional General appearance: Present: average body habitus, cooperative, no acute distress - EENT Eyes: Present: anicteric sclerae, EOMI, PERRLA, normal appearance ENT: Present: hearing grossly normal, normal oropharynx Ears: bilateral: normal - Neck Neck: Present: normal ROM. Absent: lymphadenopathy, rigidity, thyromegaly Carotids: negative: bruit present Thyroid: bilateral: normal size, negative: enlarged, nodule - Respiratory Respiratory: bilateral: CTA, negative: rales, rhonchi, wheezing - Cardiovascular Rhythm: regular Heart sounds: normal: S1, S2 Abnormal Heart Sounds: Absent: systolic murmur, diastolic murmur - Gastrointestinal General gastrointestinal: Present: normal bowel sounds, soft. Absent: distended , organomegaly, tenderness - Genitourinary Genitourinary Comment(s): deferred - Integumentary Integumentary: Present: normal turgor. Absent: jaundiced, rash, ulcer - Neurologic Neurologic: Present: CNII-XII intact. Absent: focal deficits - Musculoskeletal Musculoskeletal: Present: gait normal, strength equal bilaterally - Psychiatric Psychiatric: Present: A&O x's 3, appropriate affect, intact judgment & insight Results CBC & Chem 7: 08/05/17 19:15 08/05/17 19:15 Labs: Abnormal Lab Results - Last 24 Hours (Table) 08/05/17 Range/Units 19:15 Glucose 102 H (74-99) mg/dL Thrombosis Risk Factor Assmnt - Choose All That Apply Any of the Below Risk Factors Present?: Yes Each Factor Represents 1 point: Age 41-60 years, Obesity (BMI >25) Other Risk Factors: No Other congenital or acquired thrombophilia - If yes, enter type in comment: No Thrombosis Risk Factor Assessment Total Risk Factor Score: 2 Thrombosis Risk Factor Assessment Level: Low Risk Assessment and Plan Assessment: 1. Palpitations; tachybradycardia syndrome 2. Coronary artery disease; status post stenting 3. Anxiety 4. DVT prophylaxis We plan to admit the patient to telemetry; monitor cardiac enzymes and EKG; we will resume all home medications; consult cardiology for further recommendation and treatment; patient is scheduled for pacemaker insertion in next 48 hours. CODE STATUS; full code
[2017-08-06] MEDS ORDERED: ATORVASTATIN 40 MG TAB PO SCH (21:00)
== END 2017-08-06 16:10 | disposition home or self-care (01) ==
LOC: EC 18:23 → 3OBS 21:03 → 3SUR 08-06 09:38
PROVIDERS: ADMIT Hospitalist; ATTEND Hospitalist
DX: I49.5 Sick sinus syndrome (principal); I25.10 Atherosclerotic heart disease of native coronary artery without angina pectoris; Z95.5 Presence of coronary angioplasty implant and graft; F41.9 Anxiety disorder, unspecified; E78.5 Hyperlipidemia, unspecified; I48.91 Unspecified atrial fibrillation; K21.9 Gastro-esophageal reflux disease without esophagitis; I10 Essential (primary) hypertension; I25.2 Old myocardial infarction; M19.90 Unspecified osteoarthritis, unspecified site; M54.5 Low back pain; R91.1 Solitary pulmonary nodule; M54.32 Sciatica, left side; M54.31 Sciatica, right side; I51.9 Heart disease, unspecified; Z87.891 Personal history of nicotine dependence; Z80.1 Family history of malignant neoplasm of trachea, bronchus and lung; Z80.8 Family history of malignant neoplasm of other organs or systems; Z79.82 Long term (current) use of aspirin; Z79.899 Other long term (current) drug therapy; Z79.02 Long term (current) use of antithrombotics/antiplatelets; Z91.048 Other nonmedicinal substance allergy status; E66.9 Obesity, unspecified; Z68.26 Body mass index [BMI] 26.0-26.9, adult
CPT/HCPCS: 36415; 71046; 80053; 80061; 82550; 82553; 83735; 84484; 85025; 85610; 85730; 93005; 94760; 99285

== ENCOUNTER 2017-08-08 14:46 | Day surgery (SDC) | payer MEDICARE ==
[2017-08-07 10:13] VITALS: BMI 25.7
[~2017-08-08 14:46] MED LIST: SODIUM CHLORIDE 0.9% 1,000 ML IV SCH; ceFAZolin 1,000 MG in SODIUM CHLORIDE 0.9% IRRIGATIO 250 ML IRRIGATION ONE; ceFAZolin IN SWFI 2 GM/20 ML SYRINGE IVP ONE
[2017-08-08] MEDS ORDERED: LORazepam 0.5 MG TAB PO STA (15:57)
[2017-08-08] MEDS ORDERED: SODIUM CHLORIDE 0.9% 500 ML IV ONE (17:08)
[2017-08-08] MEDS ORDERED: MIDAZOLAM 2 MG/2 ML VIAL ONE (17:23)
[2017-08-08] MEDS ORDERED: MIDAZOLAM 2 MG/2 ML VIAL IV ONE (17:24)
[2017-08-08] MEDS ORDERED: LIDOCAINE 1% INJ 10MG/ML (20 ML MDV) SQ ONE (17:24)
--- NOTE | 2017-08-08 17:37 | P.PCN ---
Preoperative Diagnosis: Loop monitor implant Primary physicians: Dr. Hackett Dial Painter: Dr. Null Indication: Recurrent palpitations, symptomatic history of bradycardia in the past Patient was brought to the EP lab in a fasting state. Written informed consent was obtained prior to the procedure. The left pectoral area was prepped and draped per protocol. Intravenous antibiotic was administered preoperatively. A subcutaneous Loop monitor was implanted successfully and the wound was closed per protocol. The device was programmed to detect significant kevin- arrhythmic and tachy-arrhythmic events, per protocol. Device and programming details: Programming to detect bradycardia less than 40 and tachycardia greater than 150 beats a minute Patient underwent EP procedure under conscious sedation/moderate sedation, monitoring of the level of consciousness and physiologic parameters including but not limited to vital signs and oxygenation. Patient tolerated the procedure well without any acute complications. Start time: 1723 Stop time: 1733
[2017-08-08 18:25] VITALS: RESP 20
[2017-08-08 18:27] VITALS: BP 132/79
== END 2017-08-08 18:34 | disposition home or self-care (01) ==
LOC: CATHEP 14:46
PROVIDERS: ATTEND Internal Medicine Clinical Cardiac Electrophysiology
DX: R00.2 Palpitations (principal); I25.10 Atherosclerotic heart disease of native coronary artery without angina pectoris; Z95.5 Presence of coronary angioplasty implant and graft; I49.5 Sick sinus syndrome; E78.5 Hyperlipidemia, unspecified; I48.91 Unspecified atrial fibrillation; K21.9 Gastro-esophageal reflux disease without esophagitis; I10 Essential (primary) hypertension; I25.2 Old myocardial infarction; M19.90 Unspecified osteoarthritis, unspecified site; Z79.02 Long term (current) use of antithrombotics/antiplatelets; Z79.82 Long term (current) use of aspirin; Z79.899 Other long term (current) drug therapy; Z87.891 Personal history of nicotine dependence
CPT/HCPCS: 33282; C1764; J2250; J2001; J0690

== ENCOUNTER 2017-08-11 18:33 | Observation (INO) | payer MEDICARE ==
--- NOTE | 2017-08-11 19:06 | ED ---
General Adult HPI - General Chief complaint: Chest Pain Stated complaint: Palpitations Time Seen by Provider: 08/11/17 18:46 Source: patient, RN notes reviewed Mode of arrival: ambulatory Limitations: no limitations - History of Present Illness Initial comments: 61-year-old female presents with palpitations and chest pain. Patient states earlier in the day showed an episode of palpitations, she checked her heart rate at this time her rate was in the 140s. She also states her blood pressure was elevated. She did have some left-sided chest pain associated with her palpitations and tachycardia. She is currently not on any blood pressure medications and no medications for heart rate control. These medications have been recently discontinued. She does have history of anxiety and admits that she does get quite anxious with these episodes. No nausea or diaphoresis. No abdominal pain. - Related Data Home Medications Medication Instructions Recorded Confirmed Aspirin [Adult Low Dose Aspirin EC] 81 mg PO DAILY 08/11/17 08/11/17 Atorvastatin [Lipitor] 40 mg PO DAILY 08/11/17 08/11/17 Clopidogrel [Plavix] 75 mg PO DAILY 08/11/17 08/11/17 HYDROcodone/APAP 7.5-325MG [[place] 0.5 tab PO BID 08/11/17 08/11/17 7.5-325] Ibuprofen [Motrin Ib] 200 mg PO Q4H PRN 08/11/17 08/11/17 LORazepam [Ativan] 0.5 mg PO BID 08/11/17 08/11/17 Allergies Allergy/AdvReac Type Severity Reaction Status Date / Time adhesive tape AdvReac Rash/Hives Verified 08/11/17 18:42 Review of Systems ROS Statement: Those systems with pertinent positive or pertinent negative responses have been documented in the HPI. ROS Other: All systems not noted in ROS Statement are negative. Past Medical History Past Medical History: Atrial Fibrillation, Coronary Artery Disease (CAD), Chest Pain / Angina, Hyperlipidemia, Hypertension, Myocardial Infarction ([place]) Additional Past Medical History / Comment(s): Degenerative disc disease History of Any Multi-Drug Resistant Organisms: None Reported Past Surgical History: Heart Catheterization With Stent, Orthopedic Surgery Additional Past Surgical History / Comment(s): Ectopic , loop monitor Past Psychological History: Anxiety Smoking Status: Former smoker Past Alcohol Use History: None Reported Past Drug Use History: None Reported General Exam Limitations: no limitations General appearance: alert, in no apparent distress Head exam: Present: atraumatic, normocephalic Eye exam: Present: normal appearance, PERRL, EOMI Neck exam: Present: normal inspection. Absent: tenderness, meningismus Respiratory exam: Present: normal lung sounds bilaterally. Absent: respiratory distress Cardiovascular Exam: Present: regular rate, normal rhythm GI/Abdominal exam: Present: soft. Absent: distended, tenderness, guarding Neurological exam: Present: alert, oriented X3 Psychiatric exam: Present: anxious Skin exam: Present: warm, dry, intact. Absent: cyanosis, diaphoretic Course Vital Signs 08/11/17 18:39 Temperature 98.9 F Pulse Rate 69 Respiratory 18 Rate Blood Pressure 162/95 O2 Sat by Pulse 97 Oximetry EKG Findings - EKG Comments: EKG Findings:: EKG, sinus bradycardia, ventricular rate 54, IL interval 170, QRS duration 88, QTC 424, there is T-wave inversion in leads V2, V3, and lead 3. This is unchanged from previous EKG. Baseline artifact, no ST segment elevation or depression Medical Decision Making - Medical Decision Making 61-year-old female presenting with chest pain or palpitations. EKG appears unchanged from previous. Chest x-ray negative for acute cardiopulmonary disease. Workup including CBC, CMP, and troponin is negative. Patient remained sinus on the monitor. I did have a long discussion with the patient regarding her symptoms and repeat ER visits. She states today was different, chest pain was more severe. She is very concerned. She will be placed in observation for cardiology consultation and serial cardiac enzymes. - Lab Data Result diagrams: 08/11/17 19:23 08/11/17 19:23 Lab Results 08/11/17 08/11/17 08/11/17 Range/Units 19:23 19:23 19:23 WBC 5.9 (3.8-10.6) k/uL RBC 4.38 (3.80-5.40) m/uL Hgb 12.8 (11.4-16.0) gm/dL Hct 38.2 (34.0-46.0) % MCV 87.2 (80.0-100.0) fL MCH 29.3 (25.0-35.0) pg MCHC 33.6 (31.0-37.0) g/dL RDW 13.1 (11.5-15.5) % Plt Count 262 (150-450) k/uL Neutrophils % 59 % Lymphocytes % 30 % Monocytes % 6 % Eosinophils % 4 % Basophils % 0 % Neutrophils # 3.5 (1.3-7.7) k/uL Lymphocytes # 1.8 (1.0-4.8) k/uL Monocytes # 0.4 (0-1.0) k/uL Eosinophils # 0.2 (0-0.7) k/uL Basophils # 0.0 (0-0.2) k/uL PT (9.0-12.0) sec INR (<1.2) APTT (22.0-30.0) sec Sodium 143 (137-145) mmol/L Potassium 4.2 (3.5-5.1) mmol/L Chloride 105 (98-107) mmol/L Carbon Dioxide 24 (22-30) mmol/L Anion Gap 14 mmol/L BUN 9 (7-17) mg/dL Creatinine 0.70 (0.52-1.04) mg/dL Est GFR (CKD-EPI)AfAm >90 (>60 ml/min/1.73 sqM) Est GFR (CKD-EPI)NonAf >90 (>60 ml/min/1.73 sqM) Glucose 96 (74-99) mg/dL Calcium 9.5 (8.4-10.2) mg/dL Magnesium 2.1 (1.6-2.3) mg/dL Total Bilirubin 0.4 (0.2-1.3) mg/dL AST 25 (14-36) U/L ALT 30 (9-52) U/L Alkaline Phosphatase 92 (38-126) U/L Total Creatine Kinase 52 (30-135) U/L CK-MB (CK-2) 0.5 (0.0-2.4) ng/mL CK-MB (CK-2) Rel Index 1.0 Troponin I <0.012 (0.000-0.034) ng/mL NT-Pro-B Natriuret Pep pg/mL Total Protein 6.9 (6.3-8.2) g/dL Albumin 4.0 (3.5-5.0) g/dL 08/11/17 08/11/17 Range/Units 19:23 19:23 WBC (3.8-10.6) k/uL RBC (3.80-5.40) m/uL Hgb (11.4-16.0) gm/dL Hct (34.0-46.0) % MCV (80.0-100.0) fL MCH (25.0-35.0) pg MCHC (31.0-37.0) g/dL RDW (11.5-15.5) % Plt Count (150-450) k/uL Neutrophils % % Lymphocytes % % Monocytes % % Eosinophils % % Basophils % % Neutrophils # (1.3-7.7) k/uL Lymphocytes # (1.0-4.8) k/uL Monocytes # (0-1.0) k/uL Eosinophils # (0-0.7) k/uL Basophils # (0-0.2) k/uL PT 10.4 (9.0-12.0) sec INR 1.1 (<1.2) APTT 24.6 (22.0-30.0) sec Sodium (137-145) mmol/L Potassium (3.5-5.1) mmol/L Chloride (98-107) mmol/L Carbon Dioxide (22-30) mmol/L Anion Gap mmol/L BUN (7-17) mg/dL Creatinine (0.52-1.04) mg/dL Est GFR (CKD-EPI)AfAm (>60 ml/min/1.73 sqM) Est GFR (CKD-EPI)NonAf (>60 ml/min/1.73 sqM) Glucose (74-99) mg/dL Calcium (8.4-10.2) mg/dL Magnesium (1.6-2.3) mg/dL Total Bilirubin (0.2-1.3) mg/dL AST (14-36) U/L ALT (9-52) U/L Alkaline Phosphatase (38-126) U/L Total Creatine Kinase (30-135) U/L CK-MB (CK-2) (0.0-2.4) ng/mL CK-MB (CK-2) Rel Index Troponin I (0.000-0.034) ng/mL NT-Pro-B Natriuret Pep 127 pg/mL Total Protein (6.3-8.2) g/dL Albumin (3.5-5.0) g/dL Disposition Clinical Impression: Chest pain, Palpitations Disposition: ADMITTED IP TO THIS [facility] Condition: Stable Referrals: Manolo Hackett MD [Primary Care Provider] - 1-2 days Decision to Admit Reason: Admit from EC Decision Date: 08/11/17 Decision Time: 20:46
[2017-08-11 19:42] LABS: Basophils % (A) 0 %; Eosinophils # (A) 0.2 k/uL (0-0.7); Eosinophils % (A) 4 %; HCT 38.2 % (34.0-46.0); HGB 12.8 gm/dL (11.4-16.0); Lymphocytes # (A) 1.8 k/uL (1.0-4.8); Lymphocytes % (A) 30 %; MCH 29.3 pg (25.0-35.0); MCHC 33.6 g/dL (31.0-37.0); MCV 87.2 fL (80.0-100.0); Mean Platelet Volume 7.3; Monocytes # (A) 0.4 k/uL (0-1.0); Monocytes % (A) 6 %; Neutrophils # (A) 3.5 k/uL (1.3-7.7); Neutrophils % (A) 59 %; Platelet Count 262 k/uL (150-450); RBC 4.38 m/uL (3.80-5.40); RDW 13.1 % (11.5-15.5); WBC 5.9 k/uL (3.8-10.6)
[2017-08-11 20:00] LABS: ALT 30 U/L (9-52); AST 25 U/L (14-36); Alkaline Phosphatase 92 U/L (38-126); Anion Gap 14 mmol/L; Blood Urea Nitrogen 9 mg/dL (7-17); Calcium 9.5 mg/dL (8.4-10.2); Carbon Dioxide 24 mmol/L (22-30); Chloride 105 mmol/L (98-107); Glucose 96 mg/dL (74-99); Magnesium 2.1 mg/dL (1.6-2.3); Potassium 4.2 mmol/L (3.5-5.1); Sodium 143 mmol/L (137-145); Total Bilirubin 0.4 mg/dL (0.2-1.3); Total Protein 6.9 g/dL (6.3-8.2)
--- NOTE | 2017-08-11 20:04 | XR ---
EXAMINATION TYPE: XR chest 2V DATE OF EXAM: 08/11/2017 COMPARISON: 08/05/2017 HISTORY: Chest pain TECHNIQUE: Frontal and lateral views of the chest are obtained. FINDINGS: There is no heart failure nor confluent pneumonic infiltrate. Costophrenic angles are nick r. There are chest leads. Bony thorax is intact. IMPRESSION: Normal chest. No change.
[2017-08-11 20:06] LABS: Creatine Kinase 52 U/L (30-135)
[2017-08-11 20:09] LABS: INR 1.1 (<1.2); Partial Thromboplastin Time 24.6 sec (22.0-30.0); Prothrombin Time 10.4 sec (9.0-12.0)
[2017-08-11 20:19] LABS: Creatine Kinase MB 0.5 ng/mL (0.0-2.4); Troponin I <0.012 ng/mL (0.000-0.034)
[2017-08-11] MEDS ORDERED: NALOXONE 0.4 MG/ML 1 ML VIAL IV PRN (20:41)
[2017-08-11 21:39] VITALS: BMI 25.7
[2017-08-11] MEDS: HYDROcodone/APAP 7.5-325MG 1 EACH TAB PO SCH (21:50)
[2017-08-11] MEDS: LORazepam 0.5 MG TAB PO SCH (21:50)
[2017-08-12 02:59] LABS: Creatine Kinase 41 U/L (30-135)
[2017-08-12 03:15] LABS: Creatine Kinase MB 0.5 ng/mL (0.0-2.4); Troponin I <0.012 ng/mL (0.000-0.034)
[2017-08-12] MEDS: HYDROcodone/APAP 7.5-325MG 1 EACH TAB PO SCH (06:33)
[2017-08-12 08:00] LABS: Creatine Kinase 43 U/L (30-135)
[2017-08-12 08:13] LABS: Creatine Kinase MB 0.4 ng/mL (0.0-2.4); Troponin I <0.012 ng/mL (0.000-0.034)
[2017-08-12] MEDS ORDERED: ATORVASTATIN 40 MG TAB PO SCH ×2 (09:00→10:50)
[2017-08-12] MEDS ORDERED: CLOPIDOGREL 75 MG TAB PO SCH (09:00)
[2017-08-12] MEDS ORDERED: ASPIRIN 81 MG PO SCH (09:00)
--- NOTE | 2017-08-12 10:01 | CONS ---
CONSULTATION Mrs. Adorno is a 61-year-old female with known history of coronary artery disease, status post percutaneous revascularization on multiple occasions, underwent repeat cardiac catheterization in May of this year and there was no evidence of progression of disease. She also has a history of arrhythmia. She underwent a loop recorder replacement on Monday of this week. She presented because yesterday at home, she felt that her heart rate was going fast. Her blood pressure was high, but on presentation to the EMS her heart rate and blood pressure were under better control. The patient has occasional episodes of chest discomfort, some of which she relates to the recent placement of the loop recorder. She has some dizziness but no syncope. She has chest discomfort that has been on and off in the past and had multiple admission for similar findings. She has no clear PND or orthopnea. No peripheral edema. No syncope. Her coronary risk factors are remarkable for hyperlipidemia. She is nonhypertensive, nondiabetic. She has been on beta rachel in the past that was stopped because of bradycardia. MEDICATION: At home include Ativan, [place], Plavix 75 mg daily, Lipitor 40 mg daily, and aspirin once a day. REVIEW OF SYSTEMS: RESPIRATORY system: She had dyspnea on exertion, but no recent wheezing or cough. GI system: No recent GI bleed. No peptic ulcer disease. system: No dysuria or hematuria. Nervous system: No stroke or seizure. PHYSICAL EXAMINATION: A 61-year-old female, alert, oriented, in no apparent distress. Blood pressure 104/59 with a heart in the 60s. HEAD: Normocephalic. Eyes sclerae anicteric. Neck good upstroke. No bruit. No jugular venous distention. LUNGS: Clear to auscultation. Heart: Regular rate and rhythm S1, S2. No S3. No rub or gallop. Dressing noted over the loop recorder site. ABDOMEN: Soft, nontender. Positive bowel sounds. No megaly. EXTREMITIES: No edema. Intact distal pulses. LAB DATA: Lab data revealed troponin less than 0.012 for 3 samples. BUN and creatinine 9 and 0.7, potassium 4.2, hemoglobin of 12.8. EKG revealed a sinus mechanism with T-wave inversion anteriorly with a heart rate 54, similar findings were noted in the past. IMPRESSION: 1. Symptoms of palpitation. The patient had prior palpitation in the past, with an episode of bradycardia, a loop recorder has been placed to see if she is a candidate for a permanent pacemaker implantation. 2. Chest discomfort, atypical for ischemic heart disease in a patient with known history of coronary artery disease. She has underwent percutaneous revascularization in the past and has no evidence of progression of disease by cardiac catheterization in May of this year. 3. History of hyperlipidemia. RECOMMENDATION: From the cardiac standpoint, she is stable. She should be able to be discharged home today. She is scheduled to undergo a loop recorder interrogation on Monday and depending on those findings, further recommendations will be made. Thank you for this consult. MMODL / IJN: [id number] /
[2017-08-12] MEDS: LORazepam 0.5 MG TAB PO SCH ×2 (10:48→18:08)
[2017-08-12 16:05] VITALS: BP 152/86; PULSE 66; RESP 16; TEMP 97.8
== END 2017-08-12 18:30 | disposition home or self-care (01) ==
LOC: EC 18:33 → 3OBS 20:41 → MERGE 20:41
PROVIDERS: ADMIT Internal Medicine; ATTEND Internal Medicine
DX: R00.2 Palpitations (principal); R07.89 Other chest pain; R42 Dizziness and giddiness; E78.5 Hyperlipidemia, unspecified; I10 Essential (primary) hypertension; F41.9 Anxiety disorder, unspecified; I25.2 Old myocardial infarction; I48.91 Unspecified atrial fibrillation; I25.10 Atherosclerotic heart disease of native coronary artery without angina pectoris; Z79.82 Long term (current) use of aspirin; Z79.899 Other long term (current) drug therapy; Z79.02 Long term (current) use of antithrombotics/antiplatelets; Z79.891 Long term (current) use of opiate analgesic; Z91.048 Other nonmedicinal substance allergy status; Z95.5 Presence of coronary angioplasty implant and graft; Z87.891 Personal history of nicotine dependence; Z95.818 Presence of other cardiac implants and grafts
CPT/HCPCS: 99285; 36415; 94760; 93005; 83880; 80053; 82550 ×2; 82553 ×2; 83735; 84484 ×2; 85025; 85610; 85730; 71046; G0378 ×2

== ENCOUNTER 2017-08-17 19:42 | Inpatient (IN) | payer MEDICARE ==
--- NOTE | 2017-08-17 20:05 | ED ---
General Adult HPI - General Chief complaint: Chest Pain Stated complaint: Chest discomfort,right leg problems Time Seen by Provider: 08/17/17 20:05 Source: patient, RN notes reviewed Mode of arrival: wheelchair Limitations: no limitations - History of Present Illness Initial comments: Patient is a pleasant 51-year-old female presenting to the emergency department following an episode of chest discomfort. Onset was right around 4:00. Patient has sharp discomfort that lasted a proximally 4 seconds and then has resolved. No discomfort since that time. No history of similar symptoms previously. Patient has been having some odd sensation of her right leg for the past 3 days. Patient states she has had that sensation since around 10:00 this morning. Right leg problems have been constant throughout the day. During examination patient agrees that right leg does seem somewhat weak. - Related Data Home Medications Medication Instructions Recorded Confirmed Atorvastatin [Lipitor] 40 mg PO HS 07/28/17 08/17/17 Clopidogrel [Plavix] 75 mg PO DAILY 07/28/17 08/17/17 Hydrocodone/Acetaminophen 0.5 tab PO BID PRN 07/29/17 08/17/17 [Hydrocodon-Acetaminoph 7.5-325] Aspirin [Adult Low Dose Aspirin EC] 81 mg PO DAILY 08/11/17 08/17/17 Previous Rx's Medication Instructions Recorded LORazepam [Ativan] 0.5 mg PO BID 5 Days #10 tab 08/12/17 Allergies Allergy/AdvReac Type Severity Reaction Status Date / Time adhesive tape AdvReac SKIN TEAR Verified 08/17/17 20:51 Review of Systems ROS Statement: Those systems with pertinent positive or pertinent negative responses have been documented in the HPI. ROS Other: All systems not noted in ROS Statement are negative. Constitutional: Denies: fever Eyes: Denies: eye pain ENT: Denies: ear pain Respiratory: Denies: cough Cardiovascular: Reports: chest pain Endocrine: Reports: fatigue Gastrointestinal: Denies: abdominal pain Genitourinary: Denies: dysuria Musculoskeletal: Denies: back pain Skin: Denies: rash Neurological: Reports: headache (Patient has been having intermittent headaches over the past month) Past Medical History Past Medical History: Atrial Fibrillation, Coronary Artery Disease (CAD), Chest Pain / Angina, GERD/Reflux, Hyperlipidemia, Hypertension, Myocardial Infarction (NH), Osteoarthritis (OA) Additional Past Medical History / Comment(s): Degenerative disc disease , syncope Last Myocardial Infarction Date:: 5-17 History of Any Multi-Drug Resistant Organisms: None Reported Past Surgical History: Heart Catheterization With Stent, Joint Replacement, Orthopedic Surgery Additional Past Surgical History / Comment(s): Ectopic , loop monitor, 3 stents, Total hip B/L Past Anesthesia/Blood Transfusion Reactions: No Reported Reaction Additional Past Anesthesia/Blood Transfusion Reaction / Comment(s): after hip replacement last time had very slow pulse Date of Last Stent Placement:: 05/2017 Past Psychological History: Anxiety Smoking Status: Former smoker Past Alcohol Use History: None Reported Past Drug Use History: None Reported - Past Family History Mother Family Medical History: Cancer, Hypertension Additional Family Medical History / Comment(s): Bone,blood,pancreatic CA Father Family Medical History: Hypertension, Thyroid Disorder Additional Family Medical History / Comment(s): Small Cell Carcoma CA General Exam Limitations: no limitations General appearance: alert, in no apparent distress Head exam: Present: atraumatic Eye exam: Present: normal appearance, PERRL, EOMI. Absent: nystagmus ENT exam: Present: normal oropharynx Neck exam: Present: normal inspection Respiratory exam: Present: normal lung sounds bilaterally Cardiovascular Exam: Present: regular rate, normal rhythm Expanded Peripheral pulses: 2+: Radial (R), Radial (L), Dorsalis Pedis (R), Dorsalis Pedis (L) GI/Abdominal exam: Present: soft. Absent: tenderness Extremities exam: Present: normal inspection. Absent: pedal edema, calf tenderness Neurological exam: Present: alert, oriented X3, CN II-XII intact Expanded Neurological exam: Present: protecting the airway Speech: Present: fluid speech Cranial nerves: EOM's Intact: Normal, Facial Sensation: Normal Sensory exam: Upper Extremity Light Touch: Normal, Lower Extremity Light Touch: Normal Motor strength exam: RUE: 5, LUE: 5, RLE: 4, LLE: 5 Eye Response: (4) open spontaneously Motor Response: (6) obeys commands Verbal Response: (5) oriented Psychiatric exam: Present: normal affect, normal mood Skin exam: Present: normal color Course Vital Signs 08/17/17 08/17/17 08/17/17 19:47 20:18 21:59 Temperature 97.7 F Pulse Rate 62 54 L Pulse Rate [ 50 L Aquatic Performer ] Respiratory 18 18 Rate Blood Pressure 121/75 131/66 O2 Sat by Pulse 97 99 Oximetry 08/17/17 23:09 Temperature Pulse Rate 51 L Pulse Rate [ Aquatic Performer ] Respiratory 20 Rate Blood Pressure 142/73 O2 Sat by Pulse 100 Oximetry - Reevaluation(s) Reevaluation #1: 08/17/17 20:36 Case was discussed with Dr. Ko Previous EKG was reviewed from August 112017 without evidence of bundle branch block. EKG Findings - EKG Comments: EKG Findings:: Sinus bradycardia 55. [place] 170. QRS 136. QT 458. QTC 438. Left axis. Left bundle branch block. No acute ST change. Medical Decision Making - Medical Decision Making Patient reevaluated and resting comfortably in bed. No chest discomfort. Patient states she still has some problems with her right leg. Weakness has improved however not completely resolved. Patient was updated on results and plan. Case was discussed in detail with Dr. Correa, who will admit for Dr. Gilbert. Patient was not considered a candidate for TPA secondary to symptoms onset greater than 4.5 hours. - Lab Data Result diagrams: 08/17/17 20:14 08/17/17 20:14 Lab Results 08/17/17 08/17/17 08/17/17 Range/Units 20:14 20:14 20:14 WBC 6.9 (3.8-10.6) k/uL RBC 4.42 (3.80-5.40) m/uL Hgb 13.0 (11.4-16.0) gm/dL Hct 37.8 (34.0-46.0) % MCV 85.4 (80.0-100.0) fL MCH 29.4 (25.0-35.0) pg MCHC 34.4 (31.0-37.0) g/dL RDW 12.8 (11.5-15.5) % Plt Count 290 (150-450) k/uL Neutrophils % 64 % Lymphocytes % 26 % Monocytes % 6 % Eosinophils % 3 % Basophils % 0 % Neutrophils # 4.4 (1.3-7.7) k/uL Lymphocytes # 1.8 (1.0-4.8) k/uL Monocytes # 0.4 (0-1.0) k/uL Eosinophils # 0.2 (0-0.7) k/uL Basophils # 0.0 (0-0.2) k/uL PT (9.0-12.0) sec INR (<1.2) APTT (22.0-30.0) sec Sodium 142 (137-145) mmol/L Potassium 3.8 (3.5-5.1) mmol/L Chloride 104 (98-107) mmol/L Carbon Dioxide 25 (22-30) mmol/L Anion Gap 13 mmol/L BUN 8 (7-17) mg/dL Creatinine 0.90 (0.52-1.04) mg/dL Est GFR (CKD-EPI)AfAm 81 (>60 ml/min/1.73 sqM) Est GFR (CKD-EPI)NonAf 71 (>60 ml/min/1.73 sqM) Glucose 103 H (74-99) mg/dL Calcium 9.6 (8.4-10.2) mg/dL Magnesium 2.0 (1.6-2.3) mg/dL Total Bilirubin 0.3 (0.2-1.3) mg/dL AST 23 (14-36) U/L ALT 37 (9-52) U/L Alkaline Phosphatase 85 (38-126) U/L Total Creatine Kinase 48 (30-135) U/L CK-MB (CK-2) 0.5 (0.0-2.4) ng/mL CK-MB (CK-2) Rel Index 1.0 Troponin I <0.012 (0.000-0.034) ng/mL Total Protein 6.8 (6.3-8.2) g/dL Albumin 4.3 (3.5-5.0) g/dL 08/17/17 Range/Units 20:14 WBC (3.8-10.6) k/uL RBC (3.80-5.40) m/uL Hgb (11.4-16.0) gm/dL Hct (34.0-46.0) % MCV (80.0-100.0) fL MCH (25.0-35.0) pg MCHC (31.0-37.0) g/dL RDW (11.5-15.5) % Plt Count (150-450) k/uL Neutrophils % % Lymphocytes % % Monocytes % % Eosinophils % % Basophils % % Neutrophils # (1.3-7.7) k/uL Lymphocytes # (1.0-4.8) k/uL Monocytes # (0-1.0) k/uL Eosinophils # (0-0.7) k/uL Basophils # (0-0.2) k/uL PT 10.9 (9.0-12.0) sec INR 1.1 (<1.2) APTT 24.9 (22.0-30.0) sec Sodium (137-145) mmol/L Potassium (3.5-5.1) mmol/L Chloride (98-107) mmol/L Carbon Dioxide (22-30) mmol/L Anion Gap mmol/L BUN (7-17) mg/dL Creatinine (0.52-1.04) mg/dL Est GFR (CKD-EPI)AfAm (>60 ml/min/1.73 sqM) Est GFR (CKD-EPI)NonAf (>60 ml/min/1.73 sqM) Glucose (74-99) mg/dL Calcium (8.4-10.2) mg/dL Magnesium (1.6-2.3) mg/dL Total Bilirubin (0.2-1.3) mg/dL AST (14-36) U/L ALT (9-52) U/L Alkaline Phosphatase (38-126) U/L Total Creatine Kinase (30-135) U/L CK-MB (CK-2) (0.0-2.4) ng/mL CK-MB (CK-2) Rel Index Troponin I (0.000-0.034) ng/mL Total Protein (6.3-8.2) g/dL Albumin (3.5-5.0) g/dL - Radiology Data Radiology results: report reviewed (CT angios chest reveals no acute process. Computed tomography scan of the brain and CT angiogram of the brain and neck reveal no acute process.) Disposition Clinical Impression: Chest pain, New onset left bundle branch block (LBBB), CVA (cerebral vascular accident) Disposition: ADMITTED IP TO THIS HOSP Is patient prescribed a controlled substance at d/c from ED?: No Referrals: Pinky Gilbert MD [Primary Care Provider] - 1-2 days Decision Time: 23:37
[2017-08-17 20:31] LABS: Basophils % (A) 0 %; Eosinophils # (A) 0.2 k/uL (0-0.7); Eosinophils % (A) 3 %; HCT 37.8 % (34.0-46.0); Lymphocytes # (A) 1.8 k/uL (1.0-4.8); Lymphocytes % (A) 26 %; MCH 29.4 pg (25.0-35.0); MCHC 34.4 g/dL (31.0-37.0); MCV 85.4 fL (80.0-100.0); Mean Platelet Volume 6.9; Monocytes # (A) 0.4 k/uL (0-1.0); Monocytes % (A) 6 %; Neutrophils # (A) 4.4 k/uL (1.3-7.7); Neutrophils % (A) 64 %; Platelet Count 290 k/uL (150-450); RBC 4.42 m/uL (3.80-5.40); RDW 12.8 % (11.5-15.5); WBC 6.9 k/uL (3.8-10.6)
[2017-08-17 20:42] LABS: Albumin 4.3 g/dL (3.5-5.0); Calcium 9.6 mg/dL (8.4-10.2); INR 1.1 (<1.2); Partial Thromboplastin Time 24.9 sec (22.0-30.0); Potassium 3.8 mmol/L (3.5-5.1); Prothrombin Time 10.9 sec (9.0-12.0); Total Bilirubin 0.3 mg/dL (0.2-1.3); Total Protein 6.8 g/dL (6.3-8.2)
[2017-08-17] MEDS ORDERED: RX INFO: IV CONTRAST WAS GIVEN 1 EACH MISC MISCELLANE PRN (20:44)
[2017-08-17 20:47] LABS: Creatine Kinase 48 U/L (30-135)
[2017-08-17 21:00] LABS: Creatine Kinase MB 0.5 ng/mL (0.0-2.4); Troponin I <0.012 ng/mL (0.000-0.034)
[2017-08-17] MEDS ORDERED: SODIUM CHLORIDE 0.9% 500 ML IV STA (21:01)
[2017-08-17] MEDS ORDERED: MORPHINE SULFATE 4MG/4ML SYRG IVP STA (21:01)
--- NOTE | 2017-08-17 22:07 | CT ---
EXAMINATION TYPE: CT brain wo con DATE OF EXAM: 08/17/2017 COMPARISON: 05/27/2017 HISTORY: MCDONADL, chest pain and right leg weakness CT DLP: 1021 mGycm Automated exposure control for dose reduction was used. FINDINGS: There is some cerebral cortical atrophy. There is no mass effect nor midline shift. There is no sign of intracranial hemorrhage. The calvarium is intact. IMPRESSION: MILD ATROPHY. NO ACUTE INTRACRANIAL ABNORMALITY. NO CHANGE COMPARED TO OLD EXAM.
--- NOTE | 2017-08-17 22:12 | CT ---
EXAMINATION TYPE: CT angio chest DATE OF EXAM: 08/17/2017 9:53 PM COMPARISON: NONE HISTORY: MCDONALD, chest pain and right leg weakness CT DLP: 521.6 mGycm Automated exposure control for dose reduction was used. CONTRAST: CTA scan of the thorax is performed with IV Contrast, patient injected with 60 mL of Isovue 370, pulm onary embolism protocol. There are 3-D post processed images.. FINDINGS: The lungs are clear of infiltrate. There is no pleural effusion. Heart size is normal. There is no pe ricardial effusion. I see no filling defects in the pulmonary arteries. There is no mediastinal adenopathy. There are no hilar masses. There is fairly normal heart size. The bony thorax is intact. There is spurring in the thoracic spine. There is no evidence of aortic an eurysm or dissection. IMPRESSION: NEGATIVE CT ANGIOGRAM OF THE CHEST. NO EVIDENCE OF PULMONARY EMBOLISM.
--- NOTE | 2017-08-17 23:02 | CT ---
EXAMINATION TYPE: CT angio head neck DATE OF EXAM: 08/17/2017 HISTORY: MCDONALD, chest pain and right leg weakness COMPARISON: NONE CT DLP: 283.4 mGycm. Automated Exposure Control for Dose Reduction was Utilized. TECHNIQUE: CTA scan of the neck is performed with IV Contrast, patient injected with 60 mL of Isovue 370, axial images are obtained, coronal and sagittal reformatted images are reviewed. Three-D recons tructed images are created on an independent workstation and reviewed. FINDINGS: There is normal branching pattern of the great vessels on the aortic arch. There is no mediastinal ad enopathy. Thyroid gland is symmetric. There is contrast opacification of the carotid arteries and jug ular veins. There is patency of the common internal and external carotid arteries bilaterally. There is no evidence of carotid artery aneurysm or dissection. There is wide patency of the carotid artery bifurcation. There is arterial flow in both vertebral arteries. The right vertebral artery is slightl y larger than the left. There is arterial flow in the anterior middle and posterior cerebral arteries. There is arterial flow in the vertebrobasilar artery system. There is no evidence of intracranial aneurysm or neovascularit y. There is normal contrast opacification of the venous sinuses. There is arterial flow in the verteb robasilar artery system. There is no evidence of intracranial arterial stenosis or spasm. CONCLUSION: Normal CT angiogram of the neck. Normal CT angiogram of the brain.
[2017-08-17] MEDS ORDERED: ASPIRIN 325 MG TAB PO STA (23:37)
[2017-08-17] MEDS ORDERED: NITROGLYCERIN SL TABS 0.4 MG TAB SUBLINGUAL PRN (23:37)
[2017-08-18] MEDS: SODIUM CHLORIDE 0.9% 1,000 ML IV SCH ×3 (00:47→19:33)
[2017-08-18] MEDS: HYDROcodone/APAP 7.5-325MG 1 EACH TAB PO PRN ×3 (01:31→16:07)
[2017-08-18 02:39] VITALS: BMI 25.7
[2017-08-18 02:48] LABS: Creatine Kinase 43 U/L (30-135)
[2017-08-18 03:01] LABS: Creatine Kinase MB 0.4 ng/mL (0.0-2.4); Troponin I <0.012 ng/mL (0.000-0.034)
[2017-08-18 09:00] LABS: Creatine Kinase 41 U/L (30-135)
[2017-08-18 09:02] LABS: Cholesterol 94 mg/dL (<200); HDL Cholesterol 47 mg/dL (40-60); LDL Cholesterol,Calculated 32 mg/dL (0-99); Triglycerides 73 mg/dL (<150)
[2017-08-18 09:13] LABS: Creatine Kinase MB 0.4 ng/mL (0.0-2.4); Troponin I <0.012 ng/mL (0.000-0.034)
[2017-08-18] MEDS: LORazepam 0.5 MG TAB PO SCH ×2 (10:01→19:32)
[2017-08-18] MEDS: CLOPIDOGREL 75 MG TAB PO SCH (13:13)
--- NOTE | 2017-08-18 14:23 | HP ---
HISTORY AND PHYSICAL CHIEF COMPLAINT: Chest pain. HISTORY OF PRESENT ILLNESS: This 61-year-old woman with a past medical history of atrial fibrillation, history of GERD, hypertension, hyperlipidemia, myocardial infarction, history of DJD, history of CAD stent, history anxiety being followed by Dr. Hackett in the outpatient setting was complaining of left-sided chest pain, sharp in character. Patient also right- sided leg weakness. The patient is slightly dragging the right leg and the patient came to [facility] and admitted for further evaluation. CAT scan did not show any acute abnormality. Cardiology evaluating the patient. Of note the patient also had an event monitoring. 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 Apparently patient was responding with severe bradycardia to metoprolol, which was used to treat the bradycardic episodes. There is no history of fever, rigors. No history of headache, loss of consciousness, or seizures. PAST MEDICAL HISTORY: History of atrial fibrillation, CAD, chest pain, GERD, hypertension, hypertension, myocardial infarction, CAD stent. MEDICATIONS: The medications prior to admission include: 1. Ativan 0.5 mg p.o. b.i.d. 2. [place] 7.5, 0.5 tabs p.o. b.i.d. p.r.n. 3. Plavix 75 mg p.o. daily. 4. Lipitor 40 mg at bedtime. 5. Ecotrin 81 mg daily. ALLERGIES: Allergies are to ADHESIVE TAPES. FAMILY HISTORY: History of cancer, pancreatic cancer with mets. SOCIAL HISTORY: Previous history of smoking, no history of smoking or alcohol intake. REVIEW OF SYSTEMS: ENT: No diminished hearing or diminished vision. CARDIOVASCULAR SYSTEM: As mentioned earlier. RESPIRATORY SYSTEM: As mentioned earlier. GI: No nausea. : No dysuria. NERVOUS SYSTEM: As mentioned earlier. ALLERGY/IMMUNOLOGY: No asthma. MUSCULOSKELETAL: As mentioned earlier. HEMATOLOGY/ONCOLOGY: No history of anemia. ENDOCRINE: No history of diabetes or hypothyroidism. CONSTITUTIONAL: As mentioned earlier. DERMATOLOGY: Negative. RHEUMATOLOGY: Negative. PSYCHIATRY: As mentioned earlier. PHYSICAL EXAM: Patient is alert and oriented x3. Pulse is 53, blood pressure is 141/98, respiration 18, temperature is 97.3, pulse ox 100% on room air. HEENT: Conjunctivae normal. Oral mucosa moist. Neck is no jugular venous distention. No lymph node enlargement. CARDIOVASCULAR: S1 and S2 muffled. No S3 or S4. RESPIRATORY: Breath sounds diminished at the bases. No rhonchi, no crackles. ABDOMEN: Soft, nontender. No mass palpable. LEGS: No edema, no swelling. NERVOUS SYSTEM: Higher functions as mentioned earlier. Cranial nerves 2 through 12 , no facial deviation. Eye movements are full. No nystagmus. opens in the midline. Otherwise upper limbs appears to be normal. Power is normal. Sensation normal 2+. Lower limbs significant weakness on the right lower limb, some gait dysfunction also present. Sensory essentially no abnormalities. No signs of cerebellar dysfunction. SKIN: No ulcer, rash or bleeding. LYMPHATICS: No lymphadenopathy of the neck, axillae or groin. JOINTS: No active deforming arthropathy. LABS: CBC within normal limits. Glucose 103. Troponins are negative. Other labs ntd_ . CAT scan of the brain noted. Chest CTA showed no evidence of any pulmonary embolism. ASSESSMENT: 1. Left-sided chest pain for evaluation, possible unstable angina, possible musculoskeletal. 2. Weakness of the right leg possible acute cerebrovascular accident involving the left hemisphere. 3. 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 4. History of even monitoring. 5. History of atrial fibrillation. 6. History of coronary artery disease stent. 7. History of gastroesophageal reflux disease. 8. Hypertension. 9. Hyperlipidemia. 10.History of myocardial infarction. 11.History of degenerative joint disease. 12.History of ectopic . 13.History of anxiety. 14.Remote history of nicotine dependence. 15.Possible mild ischemic cardiomyopathy. 16.Mild valvular abnormalities also noted on 2-D echo. 17.FULL CODE. RECOMMENDATION: This 61-year-old woman who presented with multiple complex medical issues, we will monitor the patient closely. Continue the current medications. Continue symptomatic treatment. I recommend MRI of the brain. A full neurovascular work up including carotid Doppler. A 2-D echo has been done earlier this year, which showed ejection fraction about 40% to 50%. The overall prognosis guarded and further recommendations to follow. MMODL / IJN: [id number] / MTDD
--- NOTE | 2017-08-18 14:30 | P.CRDCN ---
History of Present Illness Consult date: 08/18/17 Requesting physician: Emily Correa Reason for Consult (text): chest pain, LBBB Chief complaint: right leg numbness and weakness History of present illness: This is a 61-year-old female patient who follows regularly with Dr. Null in the office. She has a history of CAD with multiple stents, palpitations, left bundle branch block and dyslipidemia. She previously underwent stenting of the proximal and mid RCA, distal left circumflex and first diagonal branch of the LAD and still has residual intermediate disease involving the mid to distal RCA mid left circumflex. She's also been worked up for possible pacemaker implantation and was scheduled for this however just prior to the procedure she decided to abort an subsequently had a loop monitor implanted. At recent office visit on 08/14/2017 loop interrogation showed bradycardia at nighttime only with episodes of tachycardia throughout the day. She presented to the emergency department this admission with mostly with complaints of right leg numbness and weakness that had been going on for several days. She also had an episode that lasted about 4 seconds of sharp and significant chest discomfort. She apparently has chest pain daily. EKG on presentation showed his rhythm with a left bundle branch block which was thought to be new however patient does have a history of this and previous EKGs seen during previous admissions here as well as in our office. Laboratory values showed normal CBC, electrolytes and renal function and troponins less than 0.0123. Lipids show very good control with an LDL of 32. She is being worked up by neurology for possible CVA and has an MRI scheduled. Computed tomography scan of the brain showed no acute intracranial abnormality. CT angiogram had a neck came back to be normal. CTA of the chest was negative with no evidence of pulmonary embolism. Upon examination, patient is sitting up at the side of the bed. Continues to complain of some altered sensation in her right leg as well as some weakness. No further complaints of chest discomfort. Past Medical History Past Medical History: Atrial Fibrillation, Coronary Artery Disease (CAD), Chest Pain / Angina, GERD/Reflux, Hyperlipidemia, Hypertension, Myocardial Infarction (MS), Osteoarthritis (OA) Additional Past Medical History / Comment(s): Degenerative disc disease , syncope Last Myocardial Infarction Date:: 5-17 History of Any Multi-Drug Resistant Organisms: None Reported Past Surgical History: Heart Catheterization With Stent, Joint Replacement, Orthopedic Surgery Additional Past Surgical History / Comment(s): Ectopic , loop monitor, 3 stents, Total hip B/L Past Anesthesia/Blood Transfusion Reactions: No Reported Reaction Additional Past Anesthesia/Blood Transfusion Reaction / Comment(s): after hip replacement last time had very slow pulse Date of Last Stent Placement:: 05/2017 Past Psychological History: Anxiety Additional Psychological History / Comment(s): Pt resides alone. Pt normally is independent with her ADls. She drives a car. Smoking Status: Former smoker Past Alcohol Use History: None Reported Additional Past Alcohol Use History / Comment(s): quit smoking November 2016, started smoking at age of 13, smoked 1ppd Past Drug Use History: None Reported - Past Family History Mother Family Medical History: Cancer, Hypertension Additional Family Medical History / Comment(s): Bone,blood,pancreatic CA Father Family Medical History: Hypertension, Thyroid Disorder Additional Family Medical History / Comment(s): Small Cell Carcoma CA Medications and Allergies Home Medications Medication Instructions Recorded Confirmed Type Atorvastatin [Lipitor] 40 mg PO HS 07/28/17 08/17/17 History Clopidogrel [Plavix] 75 mg PO DAILY 07/28/17 08/17/17 History Hydrocodone/Acetaminophen 0.5 tab PO BID PRN 07/29/17 08/17/17 History [Hydrocodon-Acetaminoph 7.5-325] Aspirin [Adult Low Dose Aspirin EC] 81 mg PO DAILY 08/11/17 08/17/17 History LORazepam [Ativan] 0.5 mg PO BID 5 Days #10 tab 08/12/17 08/17/17 Rx Allergies Allergy/AdvReac Type Severity Reaction Status Date / Time adhesive tape AdvReac SKIN TEAR Verified 08/17/17 20:51 Physical Exam Vitals: Vital Signs Temp Pulse Pulse Resp BP BP Pulse Ox 08/18/17 11:33 97.3 F L 53 L 18 141/98 100 08/18/17 08:00 98.2 F 58 L 18 118/75 100 08/18/17 04:00 98.8 F 62 18 155/91 97 08/18/17 00:19 59 L 20 113/64 100 08/17/17 23:51 98.4 F 66 16 136/73 98 08/17/17 23:09 51 L 20 142/73 100 08/17/17 21:59 54 L 18 131/66 99 08/17/17 20:18 50 L 08/17/17 19:47 97.7 F 62 18 121/75 97 Intake and Output 08/17/17 08/18/17 08/18/17 22:59 06:59 14:59 Intake Total 1000 240 Balance 1000 240 Intake: Amount of Fluid Infused ( 600 ml) Intake, IV Titration 400 Amount Sodium Chloride 0.9% 1, 400 000 ml @ 100 mls/hr IV . Q10H [facility] Rx#:[id number] Oral 240 Other: # Voids 2 Weight 68.039 kg 68.039 kg PHYSICAL EXAMINATION: HEENT: Head is atraumatic, normocephalic. Pupils equal, round. Neck is supple. There is no elevated jugular venous pressure. HEART EXAMINATION: Heart sounds regular, S1 and S2 normal. No murmur or gallop heard. CHEST EXAMINATION: Lungs are clear to auscultation and precussion. No chest wall tenderness is noted on palpation or with deep breathing. ABDOMEN: Soft, nontender. Bowel sounds are heard. No organomegaly noted. EXTREMITIES: 2+ peripheral pulses with no evidence of peripheral edema and no calf tenderness noted. NEUROLOGIC patient is awake, alert and oriented x3. . Results 08/17/17 20:14 08/17/17 20:14 Cardiac Enzymes 08/17/17 08/17/17 08/18/17 Range/Units 20:14 20:14 01:57 AST 23 (14-36) U/L CK-MB (CK-2) 0.5 0.4 (0.0-2.4) ng/mL Troponin I <0.012 <0.012 (0.000-0.034) ng/mL 08/18/17 Range/Units 08:08 AST (14-36) U/L CK-MB (CK-2) 0.4 (0.0-2.4) ng/mL Troponin I <0.012 (0.000-0.034) ng/mL Coagulation 08/17/17 Range/Units 20:14 PT 10.9 (9.0-12.0) sec APTT 24.9 (22.0-30.0) sec Lipids 08/18/17 Range/Units 08:08 Triglycerides 73 (<150) mg/dL Cholesterol 94 (<200) mg/dL HDL Cholesterol 47 (40-60) mg/dL CBC 08/17/17 Range/Units 20:14 WBC 6.9 (3.8-10.6) k/uL RBC 4.42 (3.80-5.40) m/uL Hgb 13.0 (11.4-16.0) gm/dL Hct 37.8 (34.0-46.0) % Plt Count 290 (150-450) k/uL Comprehensive Metabolic Panel 08/17/17 Range/Units 20:14 Sodium 142 (137-145) mmol/L Potassium 3.8 (3.5-5.1) mmol/L Chloride 104 (98-107) mmol/L Carbon Dioxide 25 (22-30) mmol/L BUN 8 (7-17) mg/dL Creatinine 0.90 (0.52-1.04) mg/dL Glucose 103 H (74-99) mg/dL Calcium 9.6 (8.4-10.2) mg/dL AST 23 (14-36) U/L ALT 37 (9-52) U/L Alkaline Phosphatase 85 (38-126) U/L Total Protein 6.8 (6.3-8.2) g/dL Albumin 4.3 (3.5-5.0) g/dL Current Medications Generic Name Dose Route Start Last Admin Trade Name Freq PRN Reason Stop Dose Admin Hydrocodone Bitart/Acetaminophen 1 each 08/18/17 00:58 08/18/17 09:57 [place] 7.5-325 PO 1 each BID PRN Administration Pain Aspirin 325 mg 08/19/17 09:00 Aspirin PO DAILY [facility] Atorvastatin Calcium 40 mg 08/18/17 21:00 Lipitor PO HS [facility] Clopidogrel Bisulfate 75 mg 08/18/17 12:15 Plavix PO DAILY [facility] Heparin Sodium (Porcine) 5,000 unit 08/18/17 21:00 Heparin SQ Q12HR [facility] Sodium Chloride 1,000 mls @ 100 mls/hr 08/17/17 23:45 08/18/17 11:06 Saline 0.9% IV Not Given .Q10H [facility] Lorazepam 0.5 mg 08/18/17 09:45 08/18/17 10:01 Ativan PO 0.5 mg BID [facility] Administration Miscellaneous Information 1 each 08/17/17 20:44 Rx Info: Iv Contrast Was Given MISCELLANE 08/19/17 20:44 DAILY PRN Per Protocol Nitroglycerin 0.4 mg 08/17/17 23:37 Nitrostat SUBLINGUAL Q5M PRN Chest Pain Non-Formulary Medication 81 mg 08/19/17 09:00 Aspirin [Adult Low Dose Aspirin Ec] PO DAILY [facility] Intake and Output 08/17/17 08/18/17 08/18/17 22:59 06:59 14:59 Intake Total 1000 240 Balance 1000 240 Intake: Amount of Fluid Infused ( 600 ml) Intake, IV Titration 400 Amount Sodium Chloride 0.9% 1, 400 000 ml @ 100 mls/hr IV . Q10H [facility] Rx#:[id number] Oral 240 Other: # Voids 2 Weight 68.039 kg 68.039 kg 08/17/17 20:14 08/17/17 20:14 EKG Interpretations (text) Sinus rhythm with a left bundle branch block Assessment and Plan Assessment: #1 right lower leg weakness and paresthesia, currently being worked up for CVA, awaiting MRI #2 CAD with multiple stents #3 nighttime bradycardia, recent loop monitor implanted #4 left bundle branch block, evidence of this on previous EKGs #5 atypical chest pain with negative troponins and no evidence of PE Plan: From cardiology's perspective, we do not feel the patient will require further cardiac workup at this time. At this time will follow the patient on an as- needed basis. She will follow-up with Dr. Granados as as an outpatient. [employer]ION [employer]IC[employer] note has been reviewed, I agree with a documented findings and plan of care. Patient was seen and examined.
--- NOTE | 2017-08-18 17:10 | MR ---
EXAMINATION TYPE: MR brain wo/w con DATE OF EXAM: 08/18/2017 COMPARISON: NONE HISTORY: rt leg weakness, stroke TECHNIQUE: Multiplanar, multisequence images of the brain and brainstem is performed without and with IV contras t, utilizing 7.5 mL intravenous Gadavist . FINDINGS: On the FLAIR images there are numerous small foci of increased signal around the lateral ve ntricles. Total number is approximately 15 and these measure up to 5 mm. There is a single 7 mm trian gular-shaped focus of increased signal in the white matter of the right frontal lobe. There is no mid line shift. Ventricles have normal size. There is no sign of intracranial hemorrhage. The brainstem i s intact. Sella turcica appears normal. There is no evidence of a cortical infarct. The contrast imag es show no pathologic enhancement. Optic chiasm is normal. Pituitary stalk appears normal. There is m ild cerebral cortical atrophy. IMPRESSION: Mild atrophy. Multiple tiny high signal foci could relate to microvascular ischemia. Demy elinating disease is possible. No evidence of a cortical infarct.
[2017-08-18] MEDS: ATORVASTATIN 40 MG TAB PO SCH (20:27)
[2017-08-18] MEDS: HEPARIN SODIUM,PORCINE 5,000 UNIT/ML 1 ML VIAL SQ SCH (20:28)
[2017-08-19] MEDS: HYDROcodone/APAP 7.5-325MG 1 EACH TAB PO PRN ×2 (04:30→16:24)
[2017-08-19] MEDS: SODIUM CHLORIDE 0.9% 1,000 ML IV SCH ×2 (04:30→16:28)
[2017-08-19 06:46] LABS: Basophils % (A) 1 %; Eosinophils # (A) 0.2 k/uL (0-0.7); Eosinophils % (A) 5 %; HCT 36.6 % (34.0-46.0); HGB 11.7 gm/dL (11.4-16.0); Lymphocytes # (A) 1.5 k/uL (1.0-4.8); Lymphocytes % (A) 29 %; MCH 28.6 pg (25.0-35.0); MCHC 32.1 g/dL (31.0-37.0); Mean Platelet Volume 7.6; Monocytes # (A) 0.3 k/uL (0-1.0); Monocytes % (A) 6 %; Neutrophils % (A) 59 %; Platelet Count 244 k/uL (150-450); RBC 4.11 m/uL (3.80-5.40); RDW 13.2 % (11.5-15.5); WBC 5.1 k/uL (3.8-10.6)
[2017-08-19 06:55] LABS: Anion Gap 12 mmol/L; Blood Urea Nitrogen 12 mg/dL (7-17); Calcium 9.5 mg/dL (8.4-10.2); Carbon Dioxide 27 mmol/L (22-30); Chloride 104 mmol/L (98-107); Cholesterol 105 mg/dL (<200); Glucose 82 mg/dL (74-99); HDL Cholesterol 52 mg/dL (40-60); LDL Cholesterol,Calculated 35 mg/dL (0-99); Potassium 5.1 mmol/L (3.5-5.1); Sodium 143 mmol/L (137-145); Triglycerides 90 mg/dL (<150)
[2017-08-19] MEDS: CLOPIDOGREL 75 MG TAB PO SCH (08:52)
[2017-08-19] MEDS: LORazepam 0.5 MG TAB PO SCH ×2 (08:52→19:28)
[2017-08-19] MEDS: ASPIRIN 325 MG TAB PO SCH ×2 (08:52→10:30)
[2017-08-19] MEDS: HEPARIN SODIUM,PORCINE 5,000 UNIT/ML 1 ML VIAL SQ SCH ×2 (08:53→20:42)
[2017-08-19] MEDS ORDERED: NON-FORMULARY DRUG (Aspirin [Adult Low Dose Aspirin Ec] 81 MG) PO SCH (09:00)
--- NOTE | 2017-08-19 16:57 | PN ---
PROGRESS NOTE DATE OF SERVICE: 08/19/2017 This 61-year-old with a past medical history of multiple medical problems was admitted with left-sided chest pain. The patient had weakness of the right leg also. MRA showed multiple lesions, possibly small vessel ischemia. No chest pain. No palpitations. Neurology and Cardiology evaluation in progress. PHYSICAL EXAM: Alert and oriented x3. Pulse 64, blood pressure 129/73, temperature 97.6, pulse ox 100% on room air. HEENT: Conjunctivae normal. NECK: No jugular venous distention. CARDIOVASCULAR: S1, S2 RESPIRATORY: Breath sounds diminished in the bases. No rhonchi, no crackles. ABDOMEN: Soft, nontender. LEGS: Right leg weakness present. NERVOUS SYSTEM: No focal deficit. LABS: CBC, BMP within normal limits. ASSESSMENT: 1. Right leg weakness possibly caused by acute cerebrovascular accident and stroke. MRA showed multiple microvascular ischemia. 2. Left-sided chest pain possibly musculoskeletal. 3. 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 4. Event monitoring. 5. History of atrial fibrillation. 6. History of coronary artery disease, stent. 7. Gastroesophageal reflux disease. 8. Hypertension. 9. Hyperlipidemia. 10.History of degenerative joint disease. 12.History of anxiety. RECOMMENDATIONS AND DISCUSSION: I recommend to continue the current medications, continue symptomatic treatment. Otherwise at this time I recommend to continue the antiplatelet agents. Closely follow with Cardiology and Pulmonology. Guarded prognosis because of multiple complex medical issues. Further recommendations to follow. MMODL / IJN: [id number] / MTDD
[2017-08-19] MEDS: ATORVASTATIN 40 MG TAB PO SCH (20:42)
[2017-08-20] MEDS: LORazepam 0.5 MG TAB PO SCH ×2 (02:48→11:11)
[2017-08-20] MEDS: SODIUM CHLORIDE 0.9% 1,000 ML IV SCH ×3 (03:33→21:06)
[2017-08-20 06:20] LABS: Basophils % (A) 0 %; Eosinophils # (A) 0.2 k/uL (0-0.7); Eosinophils % (A) 4 %; HCT 36.7 % (34.0-46.0); HGB 11.6 gm/dL (11.4-16.0); Lymphocytes # (A) 1.6 k/uL (1.0-4.8); Lymphocytes % (A) 29 %; MCH 28.2 pg (25.0-35.0); MCHC 31.7 g/dL (31.0-37.0); MCV 88.8 fL (80.0-100.0); Mean Platelet Volume 7.6; Monocytes # (A) 0.3 k/uL (0-1.0); Monocytes % (A) 5 %; Neutrophils # (A) 3.4 k/uL (1.3-7.7); Neutrophils % (A) 61 %; Platelet Count 261 k/uL (150-450); RBC 4.13 m/uL (3.80-5.40); RDW 13.2 % (11.5-15.5); WBC 5.6 k/uL (3.8-10.6)
[2017-08-20 06:37] LABS: Calcium 9.5 mg/dL (8.4-10.2); Potassium 4.1 mmol/L (3.5-5.1)
[2017-08-20] MEDS: HYDROcodone/APAP 7.5-325MG 1 EACH TAB PO PRN ×2 (08:46→19:43)
[2017-08-20] MEDS: HEPARIN SODIUM,PORCINE 5,000 UNIT/ML 1 ML VIAL SQ SCH ×2 (08:47→21:03)
[2017-08-20] MEDS: CLOPIDOGREL 75 MG TAB PO SCH (08:47)
[2017-08-20] MEDS: ASPIRIN 325 MG TAB PO SCH (08:47)
--- NOTE | 2017-08-20 11:38 | CT ---
EXAMINATION TYPE: CT lumbar spine wo con DATE OF EXAM: 08/20/2017 11:29 AM COMPARISON: NONE HISTORY: Low back pain with bilateral leg numbness. CT DLP: 651.4 mGycm Automated exposure control for dose reduction was used. Unenhanced CT of the lumbar spine was performed. Bone and soft tissue window settings are submitted as well as coronal and sagittal reconstructions. FINDINGS: Visualized portions of the lungs are clear. There is no pleural or pericardial fluid. There is mild atheromatous calcification of the visualized arterial tree. Paraspinal soft tissues are otherwise normal. There is a mild dextroscoliosis. Vertebral body height and alignment are maintained. There is no spondylolysis or spondylolisthesis. T12-L1: The intervertebral foramina are widely maintained. There is no significant compressive discop athy. There is mild hypertrophic change in the facets. L1-2: The intervertebral foramina are widely maintained. There is no significant compressive discopat hy. There is mild hypertrophic change in the facets. L2-3: There is mild disc space loss. Intervertebral foramina are widely maintained. There is a diffus e disc displacement. There is hypertrophic changes in the facets. There is mild central canal comprom ise. L3-4: There is mild disc space loss. The intervertebral foramina are widely maintained. There is a di ffuse disc displacement. This hypertrophic changes in the facets. There is moderate central canal com promise. L4-5: There is disc space loss and a vacuum phenomena. There is bilateral intervertebral foraminal na rrowing. There is extensive facet arthropathy. There is a diffuse disc displacement. There is mild tr efoiling of the thecal sac. L5-S1: There is disc space loss and a vacuum phenomena. Intervertebral foramina appear well maintaine d. There is a diffuse disc displacement. There are moderate degenerative changes in the facets. IMPRESSION: 1. NO ACUTE OSSEOUS LESION. 2. DIFFUSE DEGENERATIVE DISC DISEASE AND FACET ARTHROPATHY. 3. BILATERAL INTERVERTEBRAL FORAMINAL NARROWING, L4-5. 4. VARYING DEGREES OF CENTRAL CANAL COMPROMISE, MOST MARKED AT L3-4.
[2017-08-20] MEDS ORDERED: ONDANSETRON 4 MG TAB PO PRN (13:50)
--- NOTE | 2017-08-20 13:50 | P.CNNES ---
History of Present Illness Consult date: 08/17/17 Requesting physician: Cyrus Keane Reason for Consult: CVA Chief complaint: right lower extremity weakness and numbness and tingling. History of Present Illness: Neurology is consulting on a 61-year-old female who presented to the ED with right lower extremity weakness and numbness and tingling. Since arrival, the patient's lower extremity weakness has remained unchanged. Patient states that she has had a history of lower extremity weakness that varies from left to right however usually affects her left leg worse than the right in the past. Occurrences wax and wane and range from 1-2 per year. Currently the patient states she has very little strength in the right lower extremity, numbness and tingling and simialr symptoms in the left but not to the same degree. Patient states she has lumbar degenerative disc disease as well as lumbar stenosis as informed by orthopedics previously. Patient also states that she is was told by her neurologist in [place] in 2007 that there was possible MS involvement and again in 2014 but she never followed up with any further workup. Patient's MRI of the brain notes 15 lesions measuring up to 5 mm in a single 7 mm triangular-shaped focus of signal in the white matter of the right frontal lobe. No midline shift. No sign of intracranial hemorrhage. Brain stem is intact. No evidence of cortical infarct. No pathological enhancement. Impression notes mild atrophy, multiple tiny high signal foci could relate to microvascular ischemia. Demyelinating disease is possible. No evidence of a cortical infarct. CT angiogram of the head and neck was unremarkable MR angiogram referenced in other documentation is unable to be located for clarification and review. Available imaging on CT angiogram does not support any abnormal findings. If llocated at a later time will we will review the documentation for contributory etiology. Patient has not had any lumbar imaging completed since arrival. Patient also stated that she has not had any lumbar imaging in the last 12-24 months. Patient further states that she did not advise any provider until now that she had a suspicion of possible MS in the past her past or her lumbar changes. On contact, the patient was alert and oriented 3, seated upright in bed in no acute distress. Review of Systems systems not noted in HPI or negative Past Medical History Past Medical History: Atrial Fibrillation, Coronary Artery Disease (CAD), Chest Pain / Angina, GERD/Reflux, Hyperlipidemia, Hypertension, Myocardial Infarction (NH), Osteoarthritis (OA) Additional Past Medical History / Comment(s): Degenerative disc disease , syncope Last Myocardial Infarction Date:: 5-17 History of Any Multi-Drug Resistant Organisms: None Reported Past Surgical History: Heart Catheterization With Stent, Joint Replacement, Orthopedic Surgery Additional Past Surgical History / Comment(s): Ectopic , loop monitor, 3 stents, Total hip B/L Past Anesthesia/Blood Transfusion Reactions: No Reported Reaction Additional Past Anesthesia/Blood Transfusion Reaction / Comment(s): after hip replacement last time had very slow pulse Date of Last Stent Placement:: 05/2017 Past Psychological History: Anxiety Additional Psychological History / Comment(s): Pt resides alone. Pt normally is independent with her ADls. She drives a car. Smoking Status: Former smoker Past Alcohol Use History: None Reported Additional Past Alcohol Use History / Comment(s): quit smoking November 2016, started smoking at age of 13, smoked 1ppd Past Drug Use History: None Reported - Past Family History Mother Family Medical History: Cancer, Hypertension Additional Family Medical History / Comment(s): Bone,blood,pancreatic CA Father Family Medical History: Hypertension, Thyroid Disorder Additional Family Medical History / Comment(s): Small Cell Carcoma CA Medications and Allergies Home Medications Medication Instructions Recorded Confirmed Type Atorvastatin [Lipitor] 40 mg PO HS 07/28/17 08/17/17 History Clopidogrel [Plavix] 75 mg PO DAILY 07/28/17 08/17/17 History Hydrocodone/Acetaminophen 0.5 tab PO BID PRN 07/29/17 08/17/17 History [Hydrocodon-Acetaminoph 7.5-325] Aspirin [Adult Low Dose Aspirin EC] 81 mg PO DAILY 08/11/17 08/17/17 History LORazepam [Ativan] 0.5 mg PO BID 5 Days #10 tab 08/12/17 08/17/17 Rx Allergies Allergy/AdvReac Type Severity Reaction Status Date / Time adhesive tape AdvReac SKIN TEAR Verified 08/17/17 20:51 Physical Examination - Vital Signs Vital Signs: Vital Signs Temp Pulse Resp BP Pulse Ox 08/20/17 12:42 98 F 75 18 138/84 100 08/20/17 11:21 98.3 F 70 18 123/76 99 08/20/17 08:00 97.2 F L 75 18 136/82 99 08/20/17 03:38 98.5 F 44 L 16 131/75 99 04/22/18 03:36 46 L 16 08/19/17 23:50 97.8 F 46 L 16 136/74 98 08/19/17 23:49 63 16 08/19/17 20:00 98.1 F 62 16 134/78 99 08/19/17 16:00 63 17 110/72 97 Intake and Output 08/19/17 08/20/17 08/20/17 22:59 06:59 14:59 Other: # Voids 1 2 Weight 72.1 kg General appearance: Alert & oriented x3, no apparent distress. Head: Atraumatic, normocephalic, normal inspection Eyes: Well appearance, PERRLA, EOMI. Ear, nose and throat: Normal exam, mucous membranes moist Neck: Normal inspection, absent tenderness, lymphadenopathy. Respiratory: No increased work of breathing Cardiovascular: Regular rate, rhythm GI/abdominal: nontender, nondistended Extremities: All range of motion, normal capillary refill, no tenderness, pedal edema joint swelling, calf tenderness musculoskeletalspine: patient has positive shopping cart sign. Patient also has pain on physical exam consistent with facet etiology as well as lumbar DDD. facet etiology appears greater than DDD etiology. Neurological: cranial nerves II through XII intact no lateralizing weaknessS bilateral lower extremity weakness right greater than left with lower extremity-numbness and tingling right greater than left no seizure activity noted on physical exam no pronator drift and no nystagmus. Left lower extremity: 4-/5 Right lower extremity: 3/5 Left upper extremity: 4+ /5 Right upper extremity: 4+ /5 Sensation: decreased right greater than left light touch Psychological: Mood and affect appropriate for setting. Results MRI brain notes numerous white matter changes with microvascular ischemia noted as well as possible demyelinating disorder. CT angiogram head and neck were unremarkable for both CT lumbar spine noted no acute osseous lesion, diffuse degenerative disc disease and facet arthropathy, bilateral intervertebral foraminal narrowing at L4-5, varying degrees of central canal compromise, most marked at L3-4. - Laboratory Findings CBC and BMP: 08/20/17 05:59 08/20/17 05:59 Abnormal Lab Findings: Abnormal Labs 08/17/17 20:14 Glucose 103 H Assessment and Plan (1) White matter changes Narrative/Plan: Patient has 15-16 white matter lesions noted on MRI of the brain with and without contrast. Physical exam findings are more consistent with possible demyelinating disease and CVA. Patient does have previous information from previous neurologist of possible MS involvement which was never followed up on or worked up on outpatient. Given the patient's age when the original discussions took place, it would've been reasonable at the patient would have been considered for possible MS. At this time her symptoms are significantly more reflective of possible demyelinating disorder. orders: IV steroid/Solu-Medrol 250 mg IV, every 6 hours Blood glucose monitoring every 6 hours Zofran 8 mg, 1 tab, by mouth 3 times a day when necessary for nausea Current Visit: Yes Status: Acute Code(s): NTH6606 - SNOMED Code(s): 731301830 (2) Lower extremity weakness Narrative/Plan: As noted #1 above as well as below. CT lumbar spine ordered to investigate patient's known/stated lumbar stenosis and lumbar DDD for any contributory etiology to the patient's bilateral lower extremity weakness and numbness and tingling. Further recommendations will be forthcoming once results of imaging is received and reviewed. Current Visit: Yes Status: Acute Code(s): R29.898 - OTH SYMPTOMS AND SIGNS INVOLVING THE MUSCULOSKELETAL SYSTEM SNOMED Code(s): 328949667 (3) Right sided weakness Narrative/Plan: as noted #1 above Current Visit: Yes Status: Acute Code(s): R53.1 - WEAKNESS SNOMED Code(s) : 201609242 (4) Numbness and tingling Narrative/Plan: as noted #1 above Current Visit: Yes Status: Acute Code(s): R20.0 - ANESTHESIA OF SKIN; R20.2 - PARESTHESIA OF SKIN SNOMED Code(s): 751050810595 (5) Hyperlipidemia Narrative/Plan: Patient's recent lipid panel was within normal limits. Patient is noted to be on Lipitor. Continue Lipitor existing dose and frequency as it is effective for the patient. Current Visit: Yes Status: Acute Code(s): E78.5 - HYPERLIPIDEMIA, UNSPECIFIED SNOMED Code(s): 22282791 Plan: Symptoms are more likely related to the patient's white matter changes versus stroke. IV steroids have been ordered along with sliding scale insulin, blood glucose monitoring and antiemetic medication to decrease patient's nausea as needed. Status: Neurology will continue to follow on this patient at this time. Patient is not cleared for discharge. I have discussed the plan of care with the physician prior to implementation and he agrees with the plan as implemented.
[2017-08-20] MEDS: methylPREDNISolone SOD SUCCI 250 MG in SODIUM CHLORIDE 0.9% 100 ML IVPB SCH ×3 (15:02→23:27)
[2017-08-20 17:40] LABS: Glucose,Whole Blood 93 mg/dL (75-99)
--- NOTE | 2017-08-20 18:07 | PN ---
PROGRESS NOTE DATE OF SERVICE: 08/20/2017. INTERVAL HISTORY: This 61-year-old woman was admitted with chest pain and right leg pain is being closely monitored. MRA showed multiple white matter lesions. Demyelinating disease needs to be ruled out. Neurology following the patient closely. Patient still has some weakness. PT/OT are evaluating the patient closely. Patient also had lumbar spine CAT scan which showed diffuse DJD and some bilateral intervertebral foramina narrowing L4-5 also. No fever. No cough. PHYSICAL EXAM: Alert and oriented times three. Pulse is 67. Blood pressure 120/60, respirations 17, temperature 97.2, pulse ox 98% on room air. HEENT: Conjunctivae normal. NECK: No JVD. Cardiovascular: S1, S2. Respiratory: Breath sounds diminished in the bases. No rhonchi and no crackles. ABDOMEN: Soft, nontender. Legs no edema. No swelling but significant weakness of the right leg present. Nervous system: No focal deficits. LABS: CBC, BMP within normal limits. ASSESSMENT: 1. Right leg weakness possibly acute cerebrovascular accident, stroke, rule out demyelinating illness. MRI showed possible multiple microvascular ischemia. 2. Left-sided chest pain possibly musculoskeletal. 3. 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 4. Event monitor. 5. History of atrial fibrillation. RECOMMENDATIONS AND DISCUSSION: Recommend to continue current medications, management and symptomatic treatment. We will monitor the patient closely, otherwise antiplatelet agents. PT/OT evaluation. Guarded prognosis because of multiple complex medical issues. Further recommendations to follow. MMODL / IJN: [id number] /
[2017-08-20 20:09] LABS: Glucose,Whole Blood 161 mg/dL (75-99)
[2017-08-20] MEDS: ATORVASTATIN 40 MG TAB PO SCH (21:03)
[2017-08-21 02:16] LABS: Glucose,Whole Blood 167 mg/dL (75-99)
[2017-08-21 05:52] LABS: Glucose,Whole Blood 145 mg/dL (75-99)
[2017-08-21] MEDS: methylPREDNISolone SOD SUCCI 250 MG in SODIUM CHLORIDE 0.9% 100 ML IVPB SCH ×4 (06:01→23:42)
[2017-08-21] MEDS: LORazepam 0.5 MG TAB PO SCH ×2 (06:09→19:21)
[2017-08-21] MEDS: SODIUM CHLORIDE 0.9% 1,000 ML IV SCH ×2 (07:11→16:41)
[2017-08-21] MEDS: HEPARIN SODIUM,PORCINE 5,000 UNIT/ML 1 ML VIAL SQ SCH ×2 (07:18→20:25)
[2017-08-21] MEDS: CLOPIDOGREL 75 MG TAB PO SCH (07:18)
[2017-08-21 07:31] LABS: Basophils % (A) 0 %; Eosinophils % (A) 0 %; HCT 41.6 % (34.0-46.0); HGB 13.2 gm/dL (11.4-16.0); Lymphocytes # (A) 0.5 k/uL (1.0-4.8); Lymphocytes % (A) 8 %; MCH 28.3 pg (25.0-35.0); MCHC 31.6 g/dL (31.0-37.0); MCV 89.6 fL (80.0-100.0); Mean Platelet Volume 7.3; Monocytes # (A) 0.1 k/uL (0-1.0); Monocytes % (A) 1 %; Neutrophils % (A) 90 %; Platelet Count 304 k/uL (150-450); RBC 4.65 m/uL (3.80-5.40); RDW 13.2 % (11.5-15.5); WBC 6.6 k/uL (3.8-10.6)
[2017-08-21 07:55] LABS: Anion Gap 14 mmol/L; Blood Urea Nitrogen 13 mg/dL (7-17); Calcium 9.8 mg/dL (8.4-10.2); Carbon Dioxide 26 mmol/L (22-30); Chloride 105 mmol/L (98-107); Glucose 148 mg/dL (74-99); Potassium 4.2 mmol/L (3.5-5.1); Sodium 145 mmol/L (137-145)
--- NOTE | 2017-08-21 08:43 | CDI ---
Last Revision, March 2017 Documentation Clarification Form Date: 08/21/17 From: Maria Isabel Donaldson RN Admit Date: 08/17/2017 11:37:00 PM Patient Name: James Adorno Visit Number: [id number] ATTENTION: The Clinical Documentation Specialists (CDI) and [facility] Coding Staff appreciate your assistance in clarifying documentation. Please respond to the clarification below the line at the bottom and electronically sign. The CDI & [facility] Coding staff will review the response and follow-up if needed. Please note: Queries are made part of the Legal Health Record. If you have any questions, please contact the author of this message via ITS. Dr. Rajeev Hodgson, Atrial fibrillation is documented in the notes dated 08/17-08/20 History/Risk Factors: Atrial fibrillation, GERD, HTN, hyperlipidemia, [place], DJD, CAD with stents presented this admission with chest pain Clinical Indicators: EKG/telemetry: SB LBBB Treatment: teley monitoring, Plavix, ASA Consults: cardiology In your professional opinion, can you please clarify the type of atrial fibrillation, if known? Chronic/Permanent Paroxysmal Persistent Other, please specify Unable to determine Please continue to document in your progress notes, under the line below and/or in the discharge summary in order to capture severity of illness and risk of mortality. Include clinical findings that support your diagnosis. No documentation of atrial fibrillation when the patient was seen by me JOHNSON
[2017-08-21] MEDS: HYDROcodone/APAP 7.5-325MG 1 EACH TAB PO PRN ×2 (08:56→22:15)
[2017-08-21] MEDS: ASPIRIN 325 MG TAB PO SCH (08:57)
[2017-08-21 12:10] LABS: Glucose,Whole Blood 140 mg/dL (75-99)
[2017-08-21 12:30] LABS: Hemoglobin A1C 5.4 % (4.0-6.0)
[2017-08-21] MEDS: IBUPROFEN 200 MG TAB PO PRN (17:30)
--- NOTE | 2017-08-21 18:28 | P.PN ---
Subjective Progress Note Date: 08/21/17 Principal diagnosis: lower extremity weakness, white matter changes on imaging Interval update (08/21/17): Provider's supervising physician reviewed the patient's MRI brain imaging report with provider on 08/20/17. Physician advises findings are consistent more likely with multiple sclerosis or demyelinating disease. Patient was rounded on a 0545 hrs. today. Patient was alert and oriented 3 and in no acute distress. Patient was resting in bed comfortably. Patient states that since starting IV steroid infusion yesterday, patient's lower extremity numbness and tingling has decreased. She states that weakness and pain will increase with ambulatory activity. However she states she has improved from a 9 out of 10 to a 7 out of 10 with regard to her overall symptoms. Homocysteine level was noted to be elevated. Patient was placed on folbic daily at this time. Neurology is following in a 61-year-old female presented to the ED with right lower extremity weakness and numbness and tingling. Since arrival patient's lower extremity weakness has remained unchanged. Patient states that she has a history of lower extremity weakness that varies from left to right however usually affects her left leg worse than the right in the past. Occurrences wax and wane and range from 1-2 per year. Currently the patient states she has very little strength in the right lower extremity, numbness and tingling similar symptoms in the left but not the same degree. Patient states she has lumbar degenerative disc disease as well as lumbar stenosis as informed by orthopedics previously patient also states that she was told by her neurologist Cristy in 2007 that there was possible MS involvement and again in 2014 but she never followed up with any further workup. Patient's MRI of the brain noted 15 lesions measuring up to 5 mm in a single- story 7 mm triangular-shaped focus of signal in the white matter of the right frontal lobe. No midline shift. No sign of intracranial hemorrhage. Brain STEM is intact. No evidence of cortical infarct. No pathological enhancement. Impression notes mild atrophy, multiple tiny high signal foci could relate to microvascular ischemia. Demyelinating disease is possible. No evidence of cortical infarct. CT angiogram of the head and neck was unremarkable Patient's lumbar imaging does not appear to be contributory at this time. Changes were noted however those can be managed on an outpatient basis. Objective - Vital Signs Vital signs: Vital Signs Temp 97.7 F 08/21/17 15:35 Pulse 78 08/21/17 15:35 Resp 18 08/21/17 15:35 BP 158/74 08/21/17 15:35 Pulse Ox 95 08/21/17 15:35 Intake & Output 08/20/17 08/21/17 08/21/17 18:59 06:59 18:59 Other: Voiding Method Toilet Toilet # Voids 1 1 - Exam General appearance: Alert & oriented x4, no apparent distress. Head: Atraumatic, normocephalic, normal inspection Eyes: Well appearance, PERRLA, EOMI. Ear, nose and throat: Normal exam, mucous membranes moist Neck: Normal inspection, absent tenderness, lymphadenopathy. Respiratory: No increased work of breathing Cardiovascular: Regular rate, rhythm GI/abdominal: Normal bowel sounds, nondistended, no tenderness, no guarding, no rebound, no rigidity. Extremities: All range of motion, normal capillary refill, no tenderness, pedal edema joint swelling, calf tenderness. Neurological: cranial nerves II through XII intact no lateralizing weakness, bilateral lower extremity weakness is noted no seizure activity noted on physical exam no pronator drift and no nystagmus. Left lower extremity: 4 minus/5 Right lower extremity: 4 minus/5 Left upper extremity: 4+/5 Right upper extremity: 4+/5 Sensation: present in all 4 extremities Psychological: Mood and affect appropriate for setting. - Labs CBC & Chem 7: 08/21/17 07:06 08/21/17 07:06 Labs: Abnormal Lab Results - Last 24 Hours (Table) 08/20/17 08/20/17 08/21/17 Range/Units 13:47 20:07 02:14 Lymphocytes # (1.0-4.8) k/uL Glucose (74-99) mg/dL POC Glucose (mg/dL) 161 H 167 H (75-99) mg/dL Homocysteine 18.45 H (4.00-14.00) umol/L 08/21/17 08/21/17 08/21/17 Range/Units 05:50 07:06 07:06 Lymphocytes # 0.5 L (1.0-4.8) k/uL Glucose 148 H (74-99) mg/dL POC Glucose (mg/dL) 145 H (75-99) mg/dL Homocysteine (4.00-14.00) umol/L 08/21/17 Range/Units 12:08 Lymphocytes # (1.0-4.8) k/uL Glucose (74-99) mg/dL POC Glucose (mg/dL) 140 H (75-99) mg/dL Homocysteine (4.00-14.00) umol/L Assessment and Plan (1) White matter changes Narrative/Plan: Patient has 15-16 white matter lesions noted on MRI of the brain with and without contrast. Physical exam findings are more consistent with possible demyelinating disease and CVA. Patient does have previous information from previous neurologist of possible MS involvement which was never followed up on or worked up on outpatient. Given the patient's age when the original discussions took place, it would've been reasonable at the patient would have been considered for possible MS. At this time her symptoms are significantly more reflective of possible demyelinating disorder. Continue: IV steroid/Solu-Medrol 250 mg IV, every 6 hours Blood glucose monitoring every 6 hours Zofran 8 mg, 1 tab, by mouth 3 times a day when necessary for nausea Current Visit: Yes Status: Acute Code(s): JKS5517 - SNOMED Code(s): 080737676 (2) Lower extremity weakness Narrative/Plan: As noted #1 above as well as below. CT lumbar spine ordered to investigate patient's known/stated lumbar stenosis and lumbar DDD for any contributory etiology to the patient's bilateral lower extremity weakness and numbness and tingling. CT lumbar spine changes noted on imaging report Neelam managed in the outpatient setting. No further workup or treatment will be needed at this time. Current Visit: Yes Status: Acute Code(s): R29.898 - OTH SYMPTOMS AND SIGNS INVOLVING THE MUSCULOSKELETAL SYSTEM SNOMED Code(s): 332432146 (3) Right sided weakness Narrative/Plan: as noted #1 above Current Visit: Yes Status: Acute Code(s): R53.1 - WEAKNESS SNOMED Code(s) : 735631256 (4) Numbness and tingling Narrative/Plan: as noted #1 above Current Visit: Yes Status: Acute Code(s): R20.0 - ANESTHESIA OF SKIN; R20.2 - PARESTHESIA OF SKIN SNOMED Code(s): 900947265045 (5) Hyperlipidemia Narrative/Plan: Patient's recent lipid panel was within normal limits. Patient is noted to be on Lipitor. Continue Lipitor existing dose and frequency as it is effective for the patient. Discontinue 81 mg aspirin daily, continue Plavix. Folbic prescribed for elevated serum homocyteine level. Current Visit: Yes Status: Acute Code(s): E78.5 - HYPERLIPIDEMIA, UNSPECIFIED SNOMED Code(s): 90404585 Plan: Symptoms are more likely related to the patient's white matter changes versus stroke. medications medication profile as already reflective of stroke prevention with aspirin and Plavix. Patient can continue one or the other as well as lipid management with Lipitor and phobic for elevated homocystine. Status: Neurology will continue to follow on as-needed basis. Patient is discharged, notify patient to follow-up in our office within 14 days for further workup the outpatient setting. I have discussed the plan of care with the physician prior to implementation and he agrees with the plan as implemented.
--- NOTE | 2017-08-21 18:29 | EEG ---
ELECTROENCEPHALOGRAM REPORT DATE OF SERVICE: 08/21/2017 REASON FOR TESTING: Stroke. DESCRIPTION OF THE PROCEDURE: This EEG was performed using a 21-channel digital electroencephalograph, following international 10-20 system. DESCRIPTION OF THE RECORDING: From the beginning of the tracing, and with the patient's eyes closed, the background rhythm was mostly consisting of 9-10 Hz alpha frequency in the posterior occipital leads. No obvious asymmetry is seen. Occasional muscle and movement artifacts are seen. Photic stimulation was performed with a minimal driving response seen. No pathological waves were elicited. Hyperventilation was not performed. The patient remains awake throughout the tracing. No epileptiform discharges were seen. Her EKG lead showed a regular rate and rhythm. INTERPRETATION: This awake EEG can be considered within normal limits. There was no asymmetry seen. No epileptiform discharges were noticed. The absence of epileptiform discharges does not rule out the diagnosis of epilepsy; therefore clinical correlation is recommended. MMCHEL / RENEN: [id number] /
[2017-08-21 18:41] LABS: Glucose,Whole Blood 165 mg/dL (75-99)
--- NOTE | 2017-08-21 20:06 | P.PN ---
Subjective Progress Note Date: 08/21/17 Progress note being dictated for Dr. Correa. Interval history: This a 61-year-old female admitted with chest pain, right leg pain, right leg weakness, possible acute CVA, possible MS and multiple other medical issues. Maintained on high-dose IV steroids, blood sugars controlled. Neurology workup in progress. Denies chest pain, palpitations or increasing shortness of breath. Objective - Vital Signs Vital signs: Vital Signs Temp 97.7 F 08/21/17 15:35 Pulse 78 08/21/17 15:35 Resp 18 08/21/17 15:35 BP 158/74 08/21/17 15:35 Pulse Ox 95 08/21/17 15:35 Intake & Output 08/21/17 08/21/17 08/22/17 06:59 18:59 06:59 Other: Voiding Method Toilet Toilet # Voids 1 3 - Exam PHYSICAL EXAM: VITAL SIGNS: As above GENERAL: Sitting up in bed, no acute HEENT: Conjunctivae normal. eyes normal. NECK: No JVD. No thyroid enlargement. No LNs CARDIOVASCULAR: S1, S2 muffled. No murmur RESPIRATION: Breath sounds diminished in the bases. No rhonchi or crackles. ABDOMEN: Soft, nontender . No guarding. no masses palpable. Bowel sounds heard. LEGS: No edema. no swelling PSYCHIATRY: Alert and oriented -3, mood and affect normal. NERVOUS SYSTEM: Cranial N 2-12 grossly normal. Moves all 4 limbs, significant weakness of right leg present .No focal deficits. - Labs CBC & Chem 7: 08/21/17 07:06 08/21/17 07:06 Labs: Abnormal Lab Results - Last 24 Hours (Table) 08/20/17 08/20/17 08/21/17 Range/Units 13:47 20:07 02:14 Lymphocytes # (1.0-4.8) k/uL Glucose (74-99) mg/dL POC Glucose (mg/dL) 161 H 167 H (75-99) mg/dL Homocysteine 18.45 H (4.00-14.00) umol/L 08/21/17 08/21/17 08/21/17 Range/Units 05:50 07:06 07:06 Lymphocytes # 0.5 L (1.0-4.8) k/uL Glucose 148 H (74-99) mg/dL POC Glucose (mg/dL) 145 H (75-99) mg/dL Homocysteine (4.00-14.00) umol/L 08/21/17 08/21/17 Range/Units 12:08 18:38 Lymphocytes # (1.0-4.8) k/uL Glucose (74-99) mg/dL POC Glucose (mg/dL) 140 H 165 H (75-99) mg/dL Homocysteine (4.00-14.00) umol/L Assessment and Plan Assessment: 1. Right leg weakness, possible acute CVA, rule out MS. MRI/MRA reporting multiple microvascular ischemia 2. Left-sided chest pain, possible muscle skeletal 3. Tachybradycardia syndrome for outpatient evaluation, pacemaker implantation 4. Event monitor 5. History of A. fib Plan: Continue on current medication regime ,monitoring and symptomatic treatment. PT/OT. Maintained on high-dose IV steroids. Neuro workup in progress, follow closely with neurology. Close monitoring of Accu-Cheks. Further recommendations to follow. The impression and plan of care has been dictated as directed. : I performed a history and examination of this patient, discussed the same with the dictator. I agree with the dictator's note ,documented as a scribe. Any additional findings or plans will be noted.
[2017-08-21] MEDS: ATORVASTATIN 40 MG TAB PO SCH (20:25)
[2017-08-22 00:01] LABS: Glucose,Whole Blood 187 mg/dL (75-99)
[2017-08-22] MEDS: SODIUM CHLORIDE 0.9% 1,000 ML IV SCH ×2 (00:08→13:25)
[2017-08-22] MEDS: IBUPROFEN 200 MG TAB PO PRN (02:32)
[2017-08-22] MEDS: methylPREDNISolone SOD SUCCI 250 MG in SODIUM CHLORIDE 0.9% 100 ML IVPB SCH ×2 (06:01→11:56)
[2017-08-22 07:13] LABS: Glucose,Whole Blood 149 mg/dL (75-99)
[2017-08-22] MEDS: HEPARIN SODIUM,PORCINE 5,000 UNIT/ML 1 ML VIAL SQ SCH (08:06)
[2017-08-22] MEDS: CLOPIDOGREL 75 MG TAB PO SCH (08:06)
[2017-08-22] MEDS: LORazepam 0.5 MG TAB PO SCH (08:09)
[2017-08-22 08:16] LABS: Anion Gap 16 mmol/L; Blood Urea Nitrogen 14 mg/dL (7-17); Calcium 9.4 mg/dL (8.4-10.2); Carbon Dioxide 23 mmol/L (22-30); Chloride 106 mmol/L (98-107); Glucose 146 mg/dL (74-99); Potassium 3.9 mmol/L (3.5-5.1); Sodium 145 mmol/L (137-145)
[2017-08-22 08:22] LABS: Basophils % (A) 0 %; Eosinophils % (A) 0 %; HCT 38.5 % (34.0-46.0); HGB 12.5 gm/dL (11.4-16.0); Lymphocytes % (A) 6 %; MCHC 32.6 g/dL (31.0-37.0); Mean Platelet Volume 7.2; Monocytes # (A) 0.4 k/uL (0-1.0); Monocytes % (A) 2 %; Neutrophils # (A) 15.2 k/uL (1.3-7.7); Neutrophils % (A) 92 %; Platelet Count 323 k/uL (150-450); RBC 4.32 m/uL (3.80-5.40); RDW 13.3 % (11.5-15.5); WBC 16.6 k/uL (3.8-10.6)
[2017-08-22] MEDS ORDERED: ASPIRIN 81 MG PO SCH (09:00)
[2017-08-22 09:18] VITALS: BP 147/71; PULSE 62; RESP 18; TEMP 97.8
[2017-08-22] MEDS ORDERED: Potassium Replacement Protocol 1 EACH MISC MISCELLANE PRN ×3 (10:24→12:51)
[2017-08-22] MEDS ORDERED: Magnesium Replacement Protocol 1 EACH MISC MISCELLANE PRN (10:25)
[2017-08-22] MEDS: HYDROcodone/APAP 7.5-325MG 1 EACH TAB PO PRN (10:39)
[2017-08-22] MEDS ORDERED: CYANOCOBALAMIN-FA-PYRIDOXINE 1 EACH TAB PO SCH (12:00)
[2017-08-22 12:42] LABS: Glucose,Whole Blood 111 mg/dL (75-99)
[2017-08-22] MEDS ORDERED: POTASSIUM CHLORIDE ER 20 MEQ TAB.ER PO ONE (13:00)
--- NOTE | 2017-08-23 07:15 | DS ---
DISCHARGE SUMMARY DATE OF SERVICE: 08/22/2017. FINAL DIAGNOSES: 1. Right leg weakness, possible acute cerebrovascular accident or transient ischemic attack, possibly demyelination. 2. MRA showing multiple microvascular ischemia. 3. Left-sided chest pain, possibly musculoskeletal. 4. 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 5. Event monitor. 6. History of atrial fibrillation. DISCHARGE DISPOSITION: The patient is being discharged in stable condition with guarded prognosis. HISTORY OF PRESENT ILLNESS: This 61-year-old woman with a past medical history of multiple medical problems was admitted with right leg weakness and as well as left-sided chest pain, is being closely monitored. The patient was thought to have either TIA or demyelinating disease. Neurology saw the patient and the patient was given empiric steroids. Patient improved significantly. On exam, vitals are stable. CARDIOVASCULAR: S1, S2. ABDOMEN: Soft. NERVOUS SYSTEM: Minimal weakness on the right leg present. The patient will be discharged in a stable condition with guarded prognosis. 1. Diet is cardiac diet. 2. Activity limited until followup. 3. Follow up with Dr. Gutierrez in 2-3 days. 4. Follow up with Dr. Granados and Dr. Gilbert as recommended. MEDICATIONS ARE: 1. Aspirin 81 mg p.o. daily. 2. Lipitor 40 mg q.h.s. 3. Plavix 75 mg p.o. daily. 4. Cyanocobalamin 1 p.o. daily. 5. Hydrocodone 1.5 mg p.o. b.i.d. 6. Advil 200 mg q.6 p.r.n. 7. Ativan 0.5 mg p.o. b.i.d. 8. Medrol Dosepak. Once again, the patient will be discharged in a stable condition with a guarded prognosis. MMODL / IJN: [id number] /
== END 2017-08-22 15:00 | disposition home or self-care (01) | DRG 58 ==
LOC: EC 19:42 → 6SEL 23:37 → 5MS5E 08-20 12:26
PROVIDERS: ADMIT Hospitalist; ATTEND Hospitalist
DX: G35 Multiple sclerosis (principal); I63.9 Cerebral infarction, unspecified; G81.91 Hemiplegia, unspecified affecting right dominant side; I49.5 Sick sinus syndrome; I11.9 Hypertensive heart disease without heart failure; E78.5 Hyperlipidemia, unspecified; I48.91 Unspecified atrial fibrillation; I25.10 Atherosclerotic heart disease of native coronary artery without angina pectoris; I44.7 Left bundle-branch block, unspecified; I25.5 Ischemic cardiomyopathy; R29.700 NIHSS score 0; F41.9 Anxiety disorder, unspecified; K21.9 Gastro-esophageal reflux disease without esophagitis; M19.90 Unspecified osteoarthritis, unspecified site; M48.061 Spinal stenosis, lumbar region without neurogenic claudication; M51.36 Other intervertebral disc degeneration, lumbar region; I25.2 Old myocardial infarction; Z79.02 Long term (current) use of antithrombotics/antiplatelets; Z79.52 Long term (current) use of systemic steroids; Z79.82 Long term (current) use of aspirin; Z79.899 Other long term (current) drug therapy; Z80.0 Family history of malignant neoplasm of digestive organs; Z82.49 Family history of ischemic heart disease and other diseases of the circulatory system; Z87.891 Personal history of nicotine dependence; Z95.5 Presence of coronary angioplasty implant and graft; Z79.891 Long term (current) use of opiate analgesic
CPT/HCPCS: 36415; 70450; 70496; 70498; 70553; 71275; 72131; 80048; 80053; 80061; 82550; 82553; 83036; 83090; 83735; 84484; 85025; 85610; 85730; 93005; 94760; 95816; 96361; 96374; 99285

== ENCOUNTER 2017-08-22 23:19 | Observation (INO) | payer MEDICARE ==
[2017-08-23 00:17] LABS: Basophils % (A) 0 %; Eosinophils # (A) 0.2 k/uL (0-0.7); Eosinophils % (A) 1 %; HCT 39.3 % (34.0-46.0); HGB 12.8 gm/dL (11.4-16.0); Lymphocytes % (A) 6 %; MCH 28.2 pg (25.0-35.0); MCHC 32.5 g/dL (31.0-37.0); MCV 86.8 fL (80.0-100.0); Mean Platelet Volume 7.4; Monocytes # (A) 0.7 k/uL (0-1.0); Monocytes % (A) 4 %; Neutrophils # (A) 14.5 k/uL (1.3-7.7); Neutrophils % (A) 88 %; Platelet Count 314 k/uL (150-450); RBC 4.53 m/uL (3.80-5.40); RDW 13.6 % (11.5-15.5); WBC 16.4 k/uL (3.8-10.6)
[2017-08-23 00:26] LABS: Partial Thromboplastin Time 22.8 sec (22.0-30.0); Prothrombin Time 10.2 sec (9.0-12.0)
--- NOTE | 2017-08-23 00:26 | ED ---
General Adult HPI - General Chief complaint: Weakness Stated complaint: Slow Heart beat, weakness Time Seen by Provider: 08/22/17 23:32 Source: patient, RN notes reviewed, old records reviewed Mode of arrival: wheelchair Limitations: no limitations - History of Present Illness Initial comments: 61-year-old female presenting for evaluation of palpitations, slow heartbeat and weakness. According to the patient she was discharged from the hospital today with similar symptoms. She was told she had a stroke and possibly EMS. She was seen by physical therapy for her lower extremity weakness which was worse on the left. This evening the patient's symptoms were persistent and she felt there may be worsening which began at approximately 4 PM. She presented to the emergency department for evaluation. Denies headache. Denies chest pain. Denies fever or chills. Denies URI symptoms. Denies abdominal pain nausea or vomiting. She has had some numbness in the right thigh which was present prior to previous admission. And she does state that her right lower extremity weakness was also present previously. No history of trauma. - Related Data Home Medications Medication Instructions Recorded Confirmed Atorvastatin [Lipitor] 40 mg PO HS 07/28/17 08/17/17 Clopidogrel [Plavix] 75 mg PO DAILY 07/28/17 08/17/17 Hydrocodone/Acetaminophen 0.5 tab PO BID PRN 07/29/17 08/17/17 [Hydrocodon-Acetaminoph 7.5-325] Previous Rx's Medication Instructions Recorded LORazepam [Ativan] 0.5 mg PO BID 5 Days #10 tab 08/12/17 Aspirin 81 mg PO DAILY chew 08/22/17 Sbhpiqknvwusaa-RX-Issmkpyseh 1 each PO DAILY@1200 #30 tab 08/22/17 [Folbic] Ibuprofen [Advil] 200 mg PO Q6HR PRN tab 08/22/17 methylPREDNISolone [Medrol] See Taper PO DAILY #18 tablet 08/22/17 Allergies Allergy/AdvReac Type Severity Reaction Status Date / Time adhesive tape AdvReac SKIN TEAR Verified 08/22/17 23:23 Review of Systems ROS Statement: Those systems with pertinent positive or pertinent negative responses have been documented in the HPI. ROS Other: All systems not noted in ROS Statement are negative. Past Medical History Past Medical History: Atrial Fibrillation, Coronary Artery Disease (CAD), Chest Pain / Angina, CVA/TIA, GERD/Reflux, Hyperlipidemia, Hypertension, Myocardial Infarction ([place]), Osteoarthritis (OA) Additional Past Medical History / Comment(s): Degenerative disc disease , syncope Last Myocardial Infarction Date:: 5 History of Any Multi-Drug Resistant Organisms: None Reported Past Surgical History: Heart Catheterization With Stent, Joint Replacement, Orthopedic Surgery Additional Past Surgical History / Comment(s): Ectopic , loop monitor, 3 stents, Total hip B/L Past Anesthesia/Blood Transfusion Reactions: No Reported Reaction Additional Past Anesthesia/Blood Transfusion Reaction / Comment(s): after hip replacement last time had very slow pulse Date of Last Stent Placement:: 05/2017 Past Psychological History: Anxiety Smoking Status: Former smoker Past Alcohol Use History: None Reported Past Drug Use History: None Reported - Past Family History Mother Family Medical History: Cancer, Hypertension Additional Family Medical History / Comment(s): Bone,blood,pancreatic CA Father Family Medical History: Hypertension, Thyroid Disorder Additional Family Medical History / Comment(s): Small Cell Carcoma CA General Exam Limitations: no limitations General appearance: alert, in no apparent distress Head exam: Present: atraumatic, normocephalic Eye exam: Present: normal appearance, PERRL, EOMI ENT exam: Present: normal exam Neck exam: Present: normal inspection. Absent: tenderness, meningismus Respiratory exam: Present: normal lung sounds bilaterally. Absent: respiratory distress, wheezes, rales Cardiovascular Exam: Present: regular rate, normal rhythm GI/Abdominal exam: Present: soft. Absent: distended, tenderness, guarding Extremities exam: Present: normal inspection, normal capillary refill. Absent: pedal edema Back exam: Present: normal inspection, full ROM. Absent: tenderness Neurological exam: Present: alert, oriented X3, CN II-XII intact, motor sensory deficit (Patient has 4 out of 5 weakness in the right lower extremity with slight drift. Left lower extremity 5 out of 5 strength. Upper extremities neurologically intact. Normal bilateral patellar reflexes.), reflexes normal Psychiatric exam: Present: anxious Skin exam: Present: warm, dry, intact. Absent: cyanosis, diaphoretic Course Vital Signs 08/22/17 08/23/17 08/23/17 23:23 00:59 01:33 Temperature 97.0 F L Pulse Rate 78 55 L 56 L Respiratory 18 16 16 Rate Blood Pressure 189/93 191/86 167/90 O2 Sat by Pulse 99 96 96 Oximetry EKG Findings - EKG Comments: EKG Findings:: Sinus rhythm with with PVC, intraventricular conduction delay, rate of 64, IL interval 164 QRS duration 92, QTC 431. Patient has history of left bundle branch block Medical Decision Making - Medical Decision Making 61-year-old female presenting for evaluation of worsening weakness and difficulty walking. Patient recently was admitted with CVA. She was told by neurology that she may have MS. She was discharged earlier today and has had worsening weakness throughout the evening hours. Head CT is obtained, this is negative for any acute intracranial pathology. Workup is otherwise unremarkable with exception of leukocytosis at 16.6 which was present at the time of discharge. Uncertain at this point if this is infectious in nature. There is no pneumonia. No UTI. MRI was reviewed from previous admission, there was concern for both ischemic change and possible demyelinating process. CT angiography from previous admission also reviewed, negative for any aneurysm or significant stenosis. Given the patient's worsening symptoms she will be admitted with neurology placed on consult. - Lab Data Result diagrams: 08/22/17 00:00 08/22/17 00:00 Lab Results 08/22/17 08/22/17 08/22/17 Range/Units 00:00 00:00 00:00 WBC 16.4 H (3.8-10.6) k/uL RBC 4.53 (3.80-5.40) m/uL Hgb 12.8 (11.4-16.0) gm/dL Hct 39.3 (34.0-46.0) % MCV 86.8 (80.0-100.0) fL MCH 28.2 (25.0-35.0) pg MCHC 32.5 (31.0-37.0) g/dL RDW 13.6 (11.5-15.5) % Plt Count 314 (150-450) k/uL Neutrophils % 88 % Lymphocytes % 6 % Monocytes % 4 % Eosinophils % 1 % Basophils % 0 % Neutrophils # 14.5 H (1.3-7.7) k/uL Lymphocytes # 1.0 (1.0-4.8) k/uL Monocytes # 0.7 (0-1.0) k/uL Eosinophils # 0.2 (0-0.7) k/uL Basophils # 0.0 (0-0.2) k/uL PT (9.0-12.0) sec INR (<1.2) APTT (22.0-30.0) sec Sodium 144 (137-145) mmol/L Potassium 3.8 (3.5-5.1) mmol/L Chloride 107 (98-107) mmol/L Carbon Dioxide 23 (22-30) mmol/L Anion Gap 14 mmol/L BUN 14 (7-17) mg/dL Creatinine 0.60 (0.52-1.04) mg/dL Est GFR (CKD-EPI)AfAm >90 (>60 ml/min/1.73 sqM) Est GFR (CKD-EPI)NonAf >90 (>60 ml/min/1.73 sqM) Glucose 116 H (74-99) mg/dL Calcium 9.8 (8.4-10.2) mg/dL Total Bilirubin 0.3 (0.2-1.3) mg/dL AST 27 (14-36) U/L ALT 41 (9-52) U/L Alkaline Phosphatase 90 (38-126) U/L Total Creatine Kinase 25 L (30-135) U/L CK-MB (CK-2) 0.7 (0.0-2.4) ng/mL CK-MB (CK-2) Rel Index 2.8 Troponin I <0.012 (0.000-0.034) ng/mL Total Protein 6.9 (6.3-8.2) g/dL Albumin 4.2 (3.5-5.0) g/dL Urine Color Urine Appearance (Clear) Urine pH (5.0-8.0) Ur Specific [place] (1.001-1.035) Urine Protein (Negative) Urine Glucose (UA) (Negative) Urine Ketones (Negative) Urine Blood (Negative) Urine Nitrite (Negative) Urine Bilirubin (Negative) Urine Urobilinogen (<2.0) mg/dL Ur Leukocyte Esterase (Negative) Urine RBC (0-5) /hpf Urine WBC (0-5) /hpf Ur Squamous Epith Cells (0-4) /hpf 08/22/17 08/23/17 Range/Units 00:00 00:41 WBC (3.8-10.6) k/uL RBC (3.80-5.40) m/uL Hgb (11.4-16.0) gm/dL Hct (34.0-46.0) % MCV (80.0-100.0) fL MCH (25.0-35.0) pg MCHC (31.0-37.0) g/dL RDW (11.5-15.5) % Plt Count (150-450) k/uL Neutrophils % % Lymphocytes % % Monocytes % % Eosinophils % % Basophils % % Neutrophils # (1.3-7.7) k/uL Lymphocytes # (1.0-4.8) k/uL Monocytes # (0-1.0) k/uL Eosinophils # (0-0.7) k/uL Basophils # (0-0.2) k/uL PT 10.2 (9.0-12.0) sec INR 1.0 (<1.2) APTT 22.8 (22.0-30.0) sec Sodium (137-145) mmol/L Potassium (3.5-5.1) mmol/L Chloride (98-107) mmol/L Carbon Dioxide (22-30) mmol/L Anion Gap mmol/L BUN (7-17) mg/dL Creatinine (0.52-1.04) mg/dL Est GFR (CKD-EPI)AfAm (>60 ml/min/1.73 sqM) Est GFR (CKD-EPI)NonAf (>60 ml/min/1.73 sqM) Glucose (74-99) mg/dL Calcium (8.4-10.2) mg/dL Total Bilirubin (0.2-1.3) mg/dL AST (14-36) U/L ALT (9-52) U/L Alkaline Phosphatase (38-126) U/L Total Creatine Kinase (30-135) U/L CK-MB (CK-2) (0.0-2.4) ng/mL CK-MB (CK-2) Rel Index Troponin I (0.000-0.034) ng/mL Total Protein (6.3-8.2) g/dL Albumin (3.5-5.0) g/dL Urine Color Colorless Urine Appearance Clear (Clear) Urine pH 7.0 (5.0-8.0) Ur Specific [place] 1.003 (1.001-1.035) Urine Protein Negative (Negative) Urine Glucose (UA) Negative (Negative) Urine Ketones Negative (Negative) Urine Blood Negative (Negative) Urine Nitrite Negative (Negative) Urine Bilirubin Negative (Negative) Urine Urobilinogen <2.0 (<2.0) mg/dL Ur Leukocyte Esterase Moderate H (Negative) Urine RBC 1 (0-5) /hpf Urine WBC 3 (0-5) /hpf Ur Squamous Epith Cells 1 (0-4) /hpf Disposition Clinical Impression: Right sided weakness, Lower extremity weakness Disposition: ADMITTED IP TO THIS [facility] Condition: Stable Is patient prescribed a controlled substance at d/c from ED?: No Referrals: Pinky Gilbert MD [Primary Care Provider] - 1-2 days Decision to Admit Reason: Admit from EC Decision Date: 08/23/17 Decision Time: 02:24
[2017-08-23 00:27] LABS: ALT 41 U/L (9-52); AST 27 U/L (14-36); Albumin 4.2 g/dL (3.5-5.0); Alkaline Phosphatase 90 U/L (38-126); Anion Gap 14 mmol/L; Blood Urea Nitrogen 14 mg/dL (7-17); Calcium 9.8 mg/dL (8.4-10.2); Carbon Dioxide 23 mmol/L (22-30); Chloride 107 mmol/L (98-107); Glucose 116 mg/dL (74-99); Potassium 3.8 mmol/L (3.5-5.1); Sodium 144 mmol/L (137-145); Total Bilirubin 0.3 mg/dL (0.2-1.3); Total Protein 6.9 g/dL (6.3-8.2)
[2017-08-23 00:29] LABS: Creatine Kinase 25 U/L (30-135)
--- NOTE | 2017-08-23 00:29 | CT ---
EXAMINATION TYPE: CT brain wo con DATE OF EXAM: 08/23/2017 COMPARISON: 08/17/2017 HISTORY: Prior on synapse, bilateral LE weakness, recent stroke, lesions on brain, slow heart rate CT DLP: 943.80 mGycm Automated exposure control for dose reduction was used. FINDINGS: Ventricles and sulci appear normal. There is no mass effect nor midline shift. There is no sign of in tracranial hemorrhage. The calvarium is intact. IMPRESSION: NEGATIVE CT SCAN OF THE BRAIN. No change.
--- NOTE | 2017-08-23 00:31 | XR ---
EXAMINATION TYPE: XR chest 2V DATE OF EXAM: 08/23/2017 COMPARISON: 08/11/2017 HISTORY: Leg weakness TECHNIQUE: Frontal and lateral views of the chest are obtained. FINDINGS: Heart and mediastinum are normal. Lungs are clear. Diaphragm is normal. Bony thorax is int act. Pulmonary vascularity is normal. There are chest leads. IMPRESSION: Normal chest. No change.
[2017-08-23 00:42] LABS: Creatine Kinase MB 0.7 ng/mL (0.0-2.4); Troponin I <0.012 ng/mL (0.000-0.034)
[2017-08-23 00:50] LABS: Appearance,Urine Clear (Clear); Bilirubin,Urine Negative (Negative); Blood,Urine Negative (Negative); Color,Urine Colorless; Glucose,Urine (UA) Negative (Negative); Ketones,Urine Negative (Negative); Leukocyte Esterase,Urine Moderate (Negative); Nitrite,Urine Negative (Negative); Protein,Urine Negative (Negative); RBC,Urine 1 /hpf (0-5); Specific Gravity,Urine 1.003 (1.001-1.035); Squamous Epithelial Cell,Urine 1 /hpf (0-4); Urobilinogen,Urine <2.0 mg/dL (<2.0); WBC,Urine 3 /hpf (0-5)
[2017-08-23] MEDS: IBUPROFEN 400 MG TAB PO STA ×2 (02:06→11:16)
[2017-08-23] MEDS ORDERED: NALOXONE 0.4 MG/ML 1 ML VIAL IV PRN (02:18)
[2017-08-23] MEDS ORDERED: ASPIRIN 325 MG TAB PO STA (02:18)
[2017-08-23] MEDS ORDERED: ACETAMINOPHEN TAB 325 MG TAB PO PRN (02:18)
[2017-08-23] MEDS ORDERED: IBUPROFEN 400 MG TAB PO PRN (02:18)
[2017-08-23 04:32] VITALS: BMI 27.5
[2017-08-23] MEDS ORDERED: TEMAZEPAM 15 MG CAP PO PRN (14:37)
--- NOTE | 2017-08-23 16:18 | HP ---
HISTORY AND PHYSICAL CHIEF COMPLAINTS: Weakness of the right lower leg as well as palpitations and weakness. HISTORY OF PRESENT ILLNESS: This 61-year-old woman with a past medical history of multiple medical problems, including CAD, history of tachy kevin syndrome, history of atrial fibrillation, being followed by Dr. Gilbert in the outpatient setting, was admitted with right leg weakness. The patient was thought to have a TIA versus multiple sclerosis. Patient was treated with high-dose IV steroids. The patient went home and subsequently had weakness of the right leg as well as some palpitations and other symptoms. Patient came to [facility] and was admitted for further evaluation and treatment. There is no history of any fever, rigor or chills. No history of headache, loss of consciousness, There is no history of fever, rigors. No headache, loss of conscious, seizures. PAST MEDICAL HISTORY: 1. Recent TIA versus multiple sclerosis. 2. History of CVA, TIA. 3. History of hypertension. 4. Hyperlipidemia. 5. History of myocardial infarction. MEDICATIONS PRIOR TO ADMISSION: 1. Solu-Medrol taper. 2. Ativan 0.5 mg b.i.d. 3. Advil 200 mg q.6 p.r.n. 4. Hydrocodone 0.5 mg b.i.d. 5. Folbic 1 p.o. daily. 6. Plavix 75 mg p.o. daily. 7. Lipitor 40 mg at bedtime. 8. Aspirin 81 mg daily. ALLERGIES: ADHESIVE TAPE. FAMILY HISTORY: No history of heart disease or strokes in the family. SOCIAL HISTORY: Previous history of smoking. No current smoking or alcohol intake. REVIEW OF SYSTEMS: ENT: No diminished hearing. No diminished vision. CARDIOVASCULAR SYSTEM: No angina, palpitations. RESPIRATORY SYSTEM: No cough, hemoptysis. GI: No nausea, vomiting. : No dysuria or retention. NERVOUS SYSTEM: As mentioned earlier. ALLERGY/IMMUNOLOGY: No asthma, hayfever. MUSCULOSKELETAL: As mentioned earlier. HEMATOLOGY/ONCOLOGY: No history of anemia. ENDOCRINE: No history of diabetes, hypothyroidism. CONSTITUTIONAL: As mentioned earlier. DERMATOLOGY: Negative. RHEUMATOLOGY: Negative. PSYCHIATRY: As mentioned earlier. PHYSICAL EXAMINATION: Patient is alert and oriented x3. Pulse 52, blood pressure 141/72, respirations 16, temperature 96.3, pulse ox 97% on room air. HEENT: Conjunctivae normal. NECK: No jugular venous distention. CARDIOVASCULAR SYSTEM: S1, S2 muffled. RESPIRATORY SYSTEM: Breath sounds diminished at the bases. Scattered rhonchi. No crackles. ABDOMEN: Soft, nontender. No mass palpable. LEGS: No edema. No swelling. NERVOUS SYSTEM: Higher functions as mentioned earlier. Otherwise, mild weakness on the right side present. SKIN: No ulcer, rash, bleeding. LABS: WBC 16.4, hemoglobin 12.8. Glucose 116. ASSESSMENT: 1. Weakness of the right side, possible transient ischemic attack versus multiple sclerosis. 2. Microvascular ischemia on the recent MRI. 3. History of recent left-sided chest pain. 4. Tachy kevin syndrome with possible outpatient pacemaker placement. 5. History of atrial fibrillation. RECOMMENDATIONS AND DISCUSSION: I recommend to continue current medication, continue symptomatic treatment. Otherwise, at this time I recommend resuming the home medications. PT/OT evaluation. Possible ECF rehab. Neurology evaluation. Guarded prognosis because of multiple complex medical issues. Further recommendations to follow. MMODL / IJN: [id number] /
[2017-08-23] MEDS: HEPARIN SODIUM,PORCINE 5,000 UNIT/ML 1 ML VIAL SQ SCH ×2 (16:24→19:40)
[2017-08-23] MEDS: CLOPIDOGREL 75 MG TAB PO SCH (16:24)
[2017-08-23] MEDS: ASPIRIN 81 MG PO SCH (16:24)
[2017-08-23] MEDS: ALPRAZolam 0.25 MG TAB PO PRN (16:28)
[2017-08-23] MEDS: LORazepam 0.5 MG TAB PO SCH (19:31)
[2017-08-23] MEDS: ATORVASTATIN 40 MG TAB PO SCH (19:40)
--- NOTE | 2017-08-23 20:39 | P.CNNES ---
History of Present Illness Consult date: 08/23/17 Reason for Consult: Patient readmitted today for right sided weakness and TIA vs. MS. History of Present Illness: This patient is a 61-year-old right-handed white female who was just admitted to hospital last week with symptoms of right leg numbness and weakness in both lower extremities. She was seen in neurology consultation by Dr. Gutierrez. MRI of the brain was performed with and without contrast at that time and revealed 1516 white matter lesions suggesting demyelinating disease. she was started on IV Solu-Medrol and was treated for 3 days. She was discharged home yesterday and returned today with recurrent symptoms of right lower extremity weakness and tingling numbness. The patient is in the process of being evaluated for possibility of demyelinating disease such as MS. She will have to follow up with Dr. Gutierrez in the outpatient clinic for further workup. At this time she is complaining of bilateral leg weakness which is remained unchanged since admission to the hospital last week. She ambulates at home with the use of a walker as well as a cane at times. She states that the weakness is in both legs right greater than left. She has a history of having severe degenerative lumbar disc disease which was evaluated [place] [address] Velez. She was told that she would need to undergo major back surgery but she refused at the time. She has not undergone specific evaluation for multiple sclerosis in the past but apparently was told in 2007 by a neurologist in [place] that she had degenerative disc disease at that time as well. She has not undergone any lumbar puncture for further evaluation for MS. She is also being followed in the cardiology clinic with Dr. Granados for possibility of paroxysmal atrial fibrillation. She is having history of tachybradycardia syndrome and may require pacemaker. Patient states that being treated with the high-dose steroids made no improvement in her leg weakness and paresthesias. We have recommended that she should have a MRI of the lumbar spine for further evaluation of her lumbar disc disease. Would recommend consultation with Dr. Velez for orthopedic spine surgery for further evaluation. Would recommend consultation with PT OT for further evaluation for need for subacute rehab for this patient as well. Patient mentions she has recently in the past 1 year has had intermittent episodes of diplopia. Apparently she did not have this over the years previously. There has not been a definitive diagnosis for MS for this patient BuSpar and her recent admission with IV steroid therapy did not show any significant improvement with the patient. The patient is now readmitted for further evaluation. Her overall prognosis at this time remains guarded. We did discuss her history of possible MS with her over the years. As noted she has not had formal testing for the MS which is to be done as outpatient. The patient's major symptom at this time is bilateral leg weakness. She does have some paresthesias in the legs as well. She denies any bowel or bladder involvement at this time. Neurology has been consulted for further evaluation and recommendations. Review of Systems Constitutional: Denies chills, Denies fever Eyes: denies blurred vision, denies pain Ears, nose, mouth and throat: Denies headache, Denies sore throat Cardiovascular: Denies chest pain, Denies shortness of breath Respiratory: Denies cough Gastrointestinal: Denies abdominal pain, Denies diarrhea, Denies nausea, Denies vomiting Genitourinary: Denies dysuria, Denies hematuria Musculoskeletal: Denies myalgias Integumentary: Denies pruritus, Denies rash Neurological: Reports double vision, Reports gait dysfunction, Reports paresthesias, Reports tingling, Denies numbness, Denies weakness Psychiatric: Denies anxiety, Denies depression Endocrine: Denies fatigue, Denies weight change Past Medical History Past Medical History: Atrial Fibrillation, Coronary Artery Disease (CAD), Chest Pain / Angina, CVA/TIA, GERD/Reflux, Hyperlipidemia, Hypertension, Myocardial Infarction (HI), Osteoarthritis (OA) Additional Past Medical History / Comment(s): Degenerative disc disease , syncope Last Myocardial Infarction Date:: 17 History of Any Multi-Drug Resistant Organisms: None Reported Past Surgical History: Heart Catheterization With Stent, Joint Replacement, Orthopedic Surgery Additional Past Surgical History / Comment(s): Ectopic , loop monitor, 3 stents, Total hip B/L Past Anesthesia/Blood Transfusion Reactions: No Reported Reaction Additional Past Anesthesia/Blood Transfusion Reaction / Comment(s): after hip replacement last time had very slow pulse Date of Last Stent Placement:: 05/2017 Past Psychological History: Anxiety Additional Psychological History / Comment(s): Pt resides alone. Pt normally is independent with her ADls. She drives a car. Smoking Status: Former smoker Past Alcohol Use History: None Reported Additional Past Alcohol Use History / Comment(s): quit smoking November 2016, started smoking at age of 13, smoked 1ppd Past Drug Use History: None Reported - Past Family History Mother Family Medical History: Cancer, Hypertension Additional Family Medical History / Comment(s): Bone,blood,pancreatic CA Father Family Medical History: Hypertension, Thyroid Disorder Additional Family Medical History / Comment(s): Small Cell Carcoma CA Medications and Allergies Home Medications Medication Instructions Recorded Confirmed Type Atorvastatin [Lipitor] 40 mg PO HS 07/28/17 08/23/17 History Clopidogrel [Plavix] 75 mg PO DAILY 07/28/17 08/23/17 History Hydrocodone/Acetaminophen 0.5 tab PO BID PRN 07/29/17 08/23/17 History [Hydrocodon-Acetaminoph 7.5-325] LORazepam [Ativan] 0.5 mg PO BID 5 Days #10 tab 08/12/17 08/23/17 Rx Aspirin 81 mg PO DAILY chew 08/22/17 08/23/17 Rx Kqnorrdoyrbxbi-UR-Grvtfcewyf 1 each PO DAILY@1200 #30 tab 08/22/17 08/23/17 Rx [Folbic] Ibuprofen [Advil] 200 mg PO Q6HR PRN tab 08/22/17 08/23/17 Rx methylPREDNISolone [Medrol] See Taper PO DAILY #18 tablet 08/22/17 08/23/17 Rx Allergies Allergy/AdvReac Type Severity Reaction Status Date / Time adhesive tape AdvReac SKIN TEAR Verified 08/23/17 07:22 Physical Examination - Vital Signs Vital Signs: Vital Signs Temp Pulse Pulse Resp BP BP Pulse Ox 08/23/17 16:00 54 L 16 146/85 96 08/23/17 14:40 16 08/23/17 12:13 16 08/23/17 11:18 96.3 F L 52 L 16 141/78 97 08/23/17 08:00 16 08/23/17 07:55 97 F L 59 L 16 140/63 96 08/23/17 04:00 96.1 F L 82 19 169/80 94 L 08/23/17 03:30 96.1 F L 82 19 169/80 94 L 08/23/17 03:00 48 L 16 107/56 100 08/23/17 01:33 56 L 16 167/90 96 08/23/17 00:59 55 L 16 191/86 96 08/22/17 23:23 97.0 F L 78 18 189/93 99 Intake and Output 08/23/17 08/23/17 08/23/17 06:59 14:59 22:59 Intake Total 600 840 Balance 600 840 Intake: Oral 600 840 Other: Voiding Method Toilet Toilet # Voids 1 1 # Bowel Movements 0 Weight 72.7 kg - Constitutional General appearance: average body habitus, cooperative - EENT EENT: PERRL, mucous membranes moist - Respiratory Respiratory: lungs clear, normal breath sounds - Cardiovascular Cardiovascular: regular rate, normal S1, normal S2 Extremities: no peripheral edema bilaterally - Gastrointestinal Gastrointestinal: normoactive bowel sounds - Integumentary Integumentary: normal - Neurologic Cranial nerve examination: PERRL, EOMI, VFF, V1/V2/V3 grossly intact, face symmetric, tongue midline, intact gag reflex, intact corneal reflex, normal palatal elevation Speech examination: intact Sensorimotor examination: intact Motor examination - right side: 3/5: hip flexors, knee extensors, dorsiflexion, toe extension (EHL), plantarflexion, 4/5: biceps, triceps, wrist flexion, wrist extension, 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 Motor examination - left side: 3/5: hip flexors, knee extensors, dorsiflexion, toe extension (EHL), plantarflexion, 4/5: biceps, triceps, wrist flexion, wrist extension, 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 Detailed sensory examination: intact Reflex and gait examination: intact Reflexes: 1+: ankle, bicep, knee, tricep - Musculoskeletal Musculoskeletal: no pain - Psychiatric Psychiatric: mood/affect appropriate, cooperative Results - Laboratory Findings CBC and BMP: 08/22/17 00:00 08/22/17 00:00 Abnormal Lab Findings: Abnormal Labs 08/22/17 08/22/17 08/22/17 00:00 00:00 00:00 WBC 16.4 H Neutrophils # 14.5 H Glucose 116 H Total Creatine Kinase 25 L Ur Leukocyte Esterase 08/23/17 00:41 WBC Neutrophils # Glucose Total Creatine Kinase Ur Leukocyte Esterase Moderate H Assessment and Plan (1) Right sided weakness Current Visit: Yes Status: Acute Code(s): R53.1 - WEAKNESS SNOMED Code(s) : 481505681 (2) White matter changes Current Visit: No Status: Acute Code(s): ONI9416 - SNOMED Code(s): 803717395 (3) Lumbar degenerative disc disease Current Visit: Yes Status: Acute Code(s): M51.36 - OTHER INTERVERTEBRAL DISC DEGENERATION, LUMBAR REGION SNOMED Code(s): 90433839 (4) Tachy-kevin syndrome Current Visit: Yes Status: Acute Code(s): I49.5 - SICK SINUS SYNDROME SNOMED Code(s): 78274620 Plan: This patient was recently admitted to Hospital for evaluation of bilateral leg weakness and numbness. She underwent MRI of the brain on 08/18/2017. This MRI revealed mild atrophy. Her multiple small high signal foci related to microvascular ischemia versus demyelinating disease. Patient was treated for possibility of acute MS exacerbation and was treated with IV Solu-Medrol for 3 days. She was discharged home yesterday and returned today for readmission as she noted no improvement with her leg weakness. Patient does have history of significant lumbar spinal stenosis and lumbar disc disease which was evaluated in 2016. She was recommended to undergo him bar spinal surgery but refused at that time. We are recommending the patient undergo MRI of the lumbar spine for further evaluation. We will obtain PT OT evaluation for the patient as well. Would recommend consultation with orthopedic spine surgery and Dr. Velez for further assessment of her degenerative lumbar disc disease. The patient does have significant weakness in both lower extremities. We will await further recommendations from orthopedic spine surgery. She was recently treated 3 days ago with IV Solu-Medrol with no improvement with her symptoms which raises question about diagnosis of MS in this patient. She'll need further workup with Dr. Guiterrez in the outpatient clinic. Patient has a known history of tachybradycardia syndrome and is undergone 3 stent placements in the heart. She is being followed by Dr. Granados for possible pacemaker placement. We will continue close neurological follow-up for the patient during this admission. Her overall prognosis at this time remains very guarded. Time with Patient: Greater than 30
[2017-08-23] MEDS: HYDROcodone/APAP 7.5-325MG 1 EACH TAB PO PRN (21:06)
[2017-08-24] MEDS: IBUPROFEN 200 MG TAB PO PRN (04:13)
[2017-08-24] MEDS: HEPARIN SODIUM,PORCINE 5,000 UNIT/ML 1 ML VIAL SQ SCH ×2 (08:08→20:26)
[2017-08-24] MEDS: ASPIRIN 81 MG PO SCH (08:11)
[2017-08-24] MEDS: LORazepam 0.5 MG TAB PO SCH ×2 (08:11→21:19)
[2017-08-24] MEDS: CLOPIDOGREL 75 MG TAB PO SCH (08:11)
[2017-08-24] MEDS: CYANOCOBALAMIN-FA-PYRIDOXINE 1 EACH TAB PO SCH (10:33)
[2017-08-24] MEDS: HYDROcodone/APAP 7.5-325MG 1 EACH TAB PO PRN (10:33)
--- NOTE | 2017-08-24 18:01 | DS ---
DISCHARGE SUMMARY DATE OF SERVICE: 08/24/2017 FINAL DIAGNOSES: 1. Weakness of both limbs; possible acute transient ischemic attack. 2. History of recent right-sided lower extremity weakness, possible multiple sclerosis. 3. Microvascular ischemia on recent MRI. 4. History of recent left-sided chest pain. 5. Tachy-kevin syndrome with possible outpatient pacemaker placement. 6. History of atrial fibrillation. DISCHARGE DISPOSITION: The patient will be discharged in stable condition with guarded prognosis. HISTORY OF PRESENT ILLNESS: This 61-year-old woman with a past medical history of multiple medical problems , being followed by Dr. Gilbert in the outpatient setting, was admitted with weakness and difficulty in walking on both sides. The patient was treated in conjunction with Dr. Byrnes. Medication was continued. Patient recently had weakness on the right side and was given high-dose IV steroids. PT/OT has elevated. However, at this time the patient would like to go home rather than ECF. On exam, vitals are stable. CARDIOVASCULAR SYSTEM: S1, S2 muffled. ABDOMEN: Soft. NERVOUS SYSTEM: Diffusely weak, right more than the left. Recommended home medications are as follows: 1. Tylenol 650 q.6 p.r.n. 2. Xanax 0.25 t.i.d. 3. Aspirin 81 mg daily. 4. Lipitor 40 mg at bedtime. 5. Plavix 75 mg p.o. daily. 6. Cyanocobalamin 1 daily. 7. Hydrocodone 0.5 mg daily. 8. Advil 200 mg q.6 p.r.n. 9. Ativan 0.5 mg b.i.d.. 10.Medrol 32 daily. Follow up with Dr. Gilbert as advised. Follow up with Neurology as advised. MMODL / IJN: [id number] / MTDD
--- NOTE | 2017-08-24 20:20 | MR ---
EXAMINATION TYPE: MR lumbar spine wo con DATE OF EXAM: 08/24/2017 COMPARISON: 11/19/2013 HISTORY: Low back pain TECHNIQUE: Multiplanar, multisequence images of the lumbar spine were acquired. Findings The lumbar vertebra have fairly normal alignment. There is a few millimeter anterior subluxation of L 5 in relation to S1. There is multilevel hypertrophic facet arthropathy. There are posterior disc her niations at L2-3 L3-4 L4-5 L5-S1. L4-5 disc herniation is larger. There is lateral recess stenosis at L4-5 and a mild relative spinal stenosis due to disc herniation and facet arthropathy. There is late ral recess stenosis at L3-4. There is no compression fracture. There is no lumbar paraspinal mass. I see no focal bone destruction. There is narrowing of the L4-5 L5-S1 neural foramina bilaterally due t o disc space narrowing and facet arthropathy. IMPRESSION: Multilevel posterior lumbar disc herniation. Degenerative first-degree L5-S1 spondylolisthesis. The d isc herniations at L2-3 L3-4 L4-5 are increased compared to old exam. There is neural foraminal impin gement at L4-5 and L5-S1 that appears worse than last exam. No compression fracture. Mild multilevel lateral recess stenosis due to facet arthropathy.
[2017-08-24] MEDS: ATORVASTATIN 40 MG TAB PO SCH (21:17)
[2017-08-24] MEDS: ALPRAZolam 0.25 MG TAB PO PRN (22:38)
--- NOTE | 2017-08-24 23:45 | P.PN ---
Subjective Progress Note Date: 08/24/17 This patient is a 61-year-old female who was admitted yesterday at Hospital with symptoms of bilateral leg weakness and numbness. She had just been admitted to hospital a few days prior for similar symptoms. Gentle went to an MRI of the brain which revealed evidence of multiple white matter changes suggesting possibility of ischemia versus demyelinating disease such as MS. She was treated with high-dose IV steroids for 3 days and was discharged home. She returned back to the hospital yesterday due to no improvement with leg weakness. We had recommended MRI of the lumbar spine to be done for further evaluation of her back condition. Apparently she has a known history of underlying lumbar disc disease which was evaluated by Dr. Velez in 2016. She was recommended surgery but declined at that time. We recommended for the patient to have a follow-up consultation with Dr. Velez. She is also to undergo further evaluation for multiple sclerosis as outpatient. Evidently her 3 days of IV steroids did not produce much improvement for her overall condition. She also has a history of underlying tachybradycardia syndrome and is being evaluated by cardiology for possible pacemaker placement. Patient apparently is being considered for discharge home later today. The patient was able to complete MRI of the lumbar spine this afternoon. We will review the MRI results today and it does indicate multiple level disc herniations throughout the entire lumbar region. This MRI shows worsening findings as compared to her previous MRI of the lumbar spine. The patient is being recommended to follow-up in the outpatient orthopedic spine surgery clinic with Dr. Velez for his further review and recommendations. We will continue close monitoring of her condition. There is been no significant improvement in her overall neurological status today. Patient should also follow-up with her neurologist soon after discharge for further evaluation for MS. We will continue to follow her progress closely during this admission. Objective - Vital Signs Vital signs: Vital Signs Temp 97.1 F L 08/24/17 11:58 Pulse 58 L 08/24/17 11:58 Resp 18 08/24/17 11:58 BP 125/82 08/24/17 11:58 Pulse Ox 97 08/24/17 11:58 Intake & Output 08/23/17 08/24/17 08/24/17 18:59 06:59 18:59 Intake Total 1080 900 420 Output Total 475 Balance 1080 900 -55 Weight 73.1 kg Intake: Oral 1080 900 420 Output: Urine 475 Other: Voiding Method Toilet Toilet Toilet # Voids 1 2 # Bowel Movements 0 - Exam Physical examination: PHYSICAL EXAMINATION: Patient is resting comfortably in bed. VITAL SIGNS: Blood pressure is [125/82]. Heart rate is [58]. Respiration is [18] . Temperature is [97.1]. HEENT: Head is atraumatic, neck is supple, there were no carotid bruits. CHEST: Lungs are clear to auscultation and percussion. CARDIAC: S1, S2 normal rate and rhythm. There is no murmur. ABDOMEN: Soft and nontender. Bowel sounds are present. EXTREMITIES: There is no pedal edema. Peripheral pulses are present. Neurological examination: Patient's neurological examination is unchanged from yesterday. - Labs CBC & Chem 7: 08/22/17 00:00 08/22/17 00:00 Assessment and Plan (1) Right sided weakness Current Visit: Yes Status: Acute Code(s): R53.1 - WEAKNESS SNOMED Code(s) : 981903066 (2) White matter changes Current Visit: No Status: Acute Code(s): PLD6468 - SNOMED Code(s): 155834704 (3) Lumbar degenerative disc disease Current Visit: Yes Status: Acute Code(s): M51.36 - OTHER INTERVERTEBRAL DISC DEGENERATION, LUMBAR REGION SNOMED Code(s): 57560714 (4) Tachy-kevin syndrome Current Visit: Yes Status: Acute Code(s): I49.5 - SICK SINUS SYNDROME SNOMED Code(s): 77029889 Plan: This patient is a 61-year-old female who was admitted to Hospital with symptoms of bilateral leg weakness and paresthesias. She was just discharged from hospital last week after she was being evaluated for possibility of multiple sclerosis. She was treated for 3 days with IV steroid therapy. She came back to Hospital yesterday as there was no improvement in her leg weakness. She underwent MRI of the lumbar spine today the results of which are noted above. She does have multiple disc herniations in the lumbar region. She is to follow- up in the orthopedic spine surgery clinic for their further recommendations. Patient also to follow up with her neurologist for further evaluation for multiple sclerosis. Overall prognosis at this time remains very guarded. She is being discharged by Dr. Correa today and will follow-up as outpatient for further treatment plans. Her overall prognosis at this time remains very guarded.
[2017-08-25] MEDS: HYDROcodone/APAP 7.5-325MG 1 EACH TAB PO PRN ×2 (01:11→13:33)
[2017-08-25] MEDS: HEPARIN SODIUM,PORCINE 5,000 UNIT/ML 1 ML VIAL SQ SCH (06:40)
[2017-08-25 07:11] VITALS: BP 117/67; PULSE 71; RESP 14; TEMP 97.8
[2017-08-25] MEDS: ALPRAZolam 0.25 MG TAB PO PRN (07:13)
[2017-08-25] MEDS: IBUPROFEN 200 MG TAB PO PRN (07:30)
[2017-08-25] MEDS: CLOPIDOGREL 75 MG TAB PO SCH (08:49)
[2017-08-25] MEDS: ASPIRIN 81 MG PO SCH (08:49)
[2017-08-25] MEDS: LORazepam 0.5 MG TAB PO SCH (08:49)
[2017-08-25] MEDS: CYANOCOBALAMIN-FA-PYRIDOXINE 1 EACH TAB PO SCH (14:03)
--- NOTE | 2017-08-25 21:53 | PN ---
PROGRESS NOTE DATE OF SERVICE: 08/24/2017 This 61-year-old woman who was admitted with acute weakness was suspected to have had a TIA. The patient is being closely monitored. PT/OT is evaluating the patient. Rehab is also being considered. On exam, alert and oriented x3. Pulse is 68, blood pressure 142/89, respiration 18, temperature 97.3, pulse ox 97% on room air. HEENT: Conjunctivae normal. NECK: No jugular venous distention. CARDIOVASCULAR SYSTEM: S1, S2 muffled. RESPIRATORY SYSTEM: Breath sounds diminished at the bases. No rhonchi. No crackles. ABDOMEN: Soft. LEGS: Weakness of both legs, right more than the left. NERVOUS SYSTEM: As mentioned earlier. Labs are noted. ASSESSMENT: 1. Weakness of both limbs, possible acute transient ischemic attack. 2. History of recent right-sided lower extremity weakness, possibly multiple sclerosis. 3. Microvascular ischemia on the recent MRI. 4. History of recent left-sided chest pain. 5. Tachy-kevin syndrome, for possible outpatient pacemaker placement. 6. History of atrial fibrillation. RECOMMENDATIONS AND DISCUSSION: I recommend to continue current medication, continue symptomatic treatment. Continue with the antiplatelet agents. Closely follow with Neurology. Possible ECF rehab. Guarded prognosis. Further recommendations to follow. MMODL / IJN: [id number] /
--- NOTE | 2017-08-26 08:03 | DS ---
DISCHARGE SUMMARY DATE OF SERVICE: 08/25/2017. ADDENDUM: This 61-year-old woman was admitted with bilateral leg weakness, also had a suspected TIA. The PT, OT was evaluated and the possibility of ECF rehab was considered but at this time the patient would like to return home. So the patient will be discharged in stable condition with guarded prognosis. See my previous dictation for detailed diagnosis and discharge medications. MMODL / IJN: [id number] /
== END 2017-08-25 14:05 | disposition home or self-care (01) ==
LOC: EC 23:19 → 6SEL 08-23 02:18 → INTOOBSV 08-23 02:18 → 3SUR 08-25 01:06
PROVIDERS: ADMIT Hospitalist; ATTEND Hospitalist
DX: R53.1 Weakness (principal); I49.5 Sick sinus syndrome; I48.91 Unspecified atrial fibrillation; R00.2 Palpitations; R20.2 Paresthesia of skin; R20.0 Anesthesia of skin; I99.8 Other disorder of circulatory system; I25.10 Atherosclerotic heart disease of native coronary artery without angina pectoris; M19.90 Unspecified osteoarthritis, unspecified site; M51.36 Other intervertebral disc degeneration, lumbar region; F41.9 Anxiety disorder, unspecified; R26.2 Difficulty in walking, not elsewhere classified; I10 Essential (primary) hypertension; E78.5 Hyperlipidemia, unspecified; I25.2 Old myocardial infarction; Z86.73 Personal history of transient ischemic attack (TIA), and cerebral infarction without residual deficits; Z79.02 Long term (current) use of antithrombotics/antiplatelets; Z79.899 Other long term (current) drug therapy; Z79.82 Long term (current) use of aspirin; Z91.048 Other nonmedicinal substance allergy status; Z79.891 Long term (current) use of opiate analgesic; Z87.891 Personal history of nicotine dependence; Z95.5 Presence of coronary angioplasty implant and graft; Z80.0 Family history of malignant neoplasm of digestive organs; Z80.8 Family history of malignant neoplasm of other organs or systems
CPT/HCPCS: 99285 ×2; 96372; 36415; 93005; 97116; 97161; 97165; 80053; 82550; 82553; 84484; 85025; 85610; 85730; 81001; 71046; 70450; 72148; G0378 ×5; J1644

== ENCOUNTER 2017-09-04 20:14 | Observation (INO) | payer MEDICARE ==
[2017-09-04] MEDS ORDERED: ONDANSETRON 4 MG/2 ML VIAL IVP STA (20:50)
[2017-09-04] MEDS ORDERED: MORPHINE SULFATE 4 MG/ML SYRINGE IV STA (20:50)
[2017-09-04] MEDS ORDERED: SODIUM CHLORIDE 0.9% 1,000 ML IV STA (20:50)
[2017-09-04] MEDS: ASPIRIN 81 MG PO STA ×2 (21:12→21:13)
[2017-09-04 21:17] LABS: Basophils % (A) 0 %; Eosinophils # (A) 0.2 k/uL (0-0.7); Eosinophils % (A) 3 %; HCT 36.3 % (34.0-46.0); HGB 11.7 gm/dL (11.4-16.0); Lymphocytes # (A) 2.1 k/uL (1.0-4.8); Lymphocytes % (A) 34 %; MCH 27.9 pg (25.0-35.0); MCHC 32.2 g/dL (31.0-37.0); MCV 86.6 fL (80.0-100.0); Mean Platelet Volume 7.3; Monocytes # (A) 0.4 k/uL (0-1.0); Monocytes % (A) 6 %; Neutrophils # (A) 3.4 k/uL (1.3-7.7); Neutrophils % (A) 55 %; Platelet Count 246 k/uL (150-450); RBC 4.19 m/uL (3.80-5.40); RDW 13.6 % (11.5-15.5); WBC 6.2 k/uL (3.8-10.6)
[2017-09-04 21:25] LABS: INR 1.1 (<1.2); Prothrombin Time 10.3 sec (9.0-12.0)
[2017-09-04 21:28] LABS: ALT 37 U/L (9-52); AST 25 U/L (14-36); Albumin 3.9 g/dL (3.5-5.0); Alkaline Phosphatase 81 U/L (38-126); Anion Gap 13 mmol/L; Blood Urea Nitrogen 9 mg/dL (7-17); Calcium 9.2 mg/dL (8.4-10.2); Carbon Dioxide 22 mmol/L (22-30); Chloride 103 mmol/L (98-107); Creatine Kinase 56 U/L (30-135); Glucose 84 mg/dL (74-99); Potassium 3.8 mmol/L (3.5-5.1); Sodium 138 mmol/L (137-145); Total Bilirubin 0.5 mg/dL (0.2-1.3); Total Protein 6.3 g/dL (6.3-8.2)
[2017-09-04 21:36] LABS: Creatine Kinase MB 0.5 ng/mL (0.0-2.4)
[2017-09-04 21:41] LABS: Troponin I <0.012 ng/mL (0.000-0.034)
--- NOTE | 2017-09-04 22:03 | XR ---
EXAMINATION TYPE: XR chest 2V DATE OF EXAM: 09/04/2017 COMPARISON: 08/23/2017 HISTORY: Chest pain TECHNIQUE: Frontal and lateral views of the chest are obtained. FINDINGS: Heart and mediastinum are normal. Lungs are clear. Diaphragm is normal. Bony thorax is int act. IMPRESSION: Normal chest. No change.
--- NOTE | 2017-09-04 23:07 | ED ---
Chest Pain HPI - General Chief Complaint: Chest Pain Stated Complaint: chest pressure Time Seen by Provider: 09/04/17 20:41 Source: patient Mode of arrival: wheelchair Limitations: no limitations - History of Present Illness Initial Comments: 31 years O female presents with a chest pain off and on for last 3 days she saying it does not radiate it stays in the left side of the chest also complaining about weakness is generalized legs feel weak she is complaining about nausea no vomiting denies she had a cold sweats not today Days ago she does have a history of heart disease she states she stated she had [address] and a she has a loop monitor in place as well. Denies any headaches no neck stiffness no pleuritic chest pain no abdominal pain no frequency urgency dysuria no symptoms of TIA or CVA - Related Data Home Medications Medication Instructions Recorded Confirmed Atorvastatin [Lipitor] 40 mg PO HS 07/28/17 09/04/17 Clopidogrel [Plavix] 75 mg PO DAILY 07/28/17 09/04/17 Hydrocodone/Acetaminophen 0.5 tab PO BID PRN 07/29/17 09/04/17 [Hydrocodon-Acetaminoph 7.5-325] [id number]-HI-[id number] 1 tab PO DAILY 09/04/17 09/04/17 [Folbic] Previous Rx's Medication Instructions Recorded LORazepam [Ativan] 0.5 mg PO BID 5 Days #10 tab 08/12/17 Aspirin 81 mg PO DAILY chew 08/22/17 Ibuprofen [Advil] 200 mg PO Q6HR PRN tab 08/22/17 ALPRAZolam [Xanax] 0.25 mg PO TID PRN #20 tab 08/24/17 Acetaminophen Tab [Tylenol] 650 mg PO Q6HR PRN tab 08/24/17 Allergies Allergy/AdvReac Type Severity Reaction Status Date / Time adhesive tape Allergy SKIN TEAR Verified 09/04/17 20:46 Review of Systems ROS Statement: Those systems with pertinent positive or pertinent negative responses have been documented in the HPI. ROS Other: All systems not noted in ROS Statement are negative. EKG Findings - EKG Comments: EKG Findings:: HEENT is sinus bradycardia ventricular rate of 54 ID interval is 164 QRS duration is 138 QT/QTc is 470/445 Left bundle branch block, this definitely seems for last EKG was from 08/22/2017 that was sinus rhythm with some fusion complexes Past Medical History Past Medical History: Atrial Fibrillation, Coronary Artery Disease (CAD), Chest Pain / Angina, CVA/TIA, GERD/Reflux, Hyperlipidemia, Hypertension, Myocardial Infarction ([place]), Osteoarthritis (OA) Additional Past Medical History / Comment(s): Degenerative disc disease , syncope Last Myocardial Infarction Date:: 5-17 History of Any Multi-Drug Resistant Organisms: None Reported Past Surgical History: Heart Catheterization With Stent, Joint Replacement, Orthopedic Surgery Additional Past Surgical History / Comment(s): Ectopic , loop monitor, 3 stents, Total hip B/L Past Anesthesia/Blood Transfusion Reactions: No Reported Reaction Additional Past Anesthesia/Blood Transfusion Reaction / Comment(s): after hip replacement last time had very slow pulse Date of Last Stent Placement:: 05/2017 Past Psychological History: Anxiety Smoking Status: Former smoker Past Alcohol Use History: None Reported Past Drug Use History: None Reported - Past Family History Mother Family Medical History: Cancer, Hypertension Additional Family Medical History / Comment(s): Bone,blood,pancreatic CA Father Family Medical History: Hypertension, Thyroid Disorder Additional Family Medical History / Comment(s): Small Cell Carcoma CA General Exam - General Exam Comments Initial Comments: General: The patient is awake and alert, in no distress, and does not appear acutely ill. Skin: Skin is warm and dry and no rashes or lesions are noted. Eye: Pupils are equal, round and reactive to light, extra-ocular movements are intact; there is normal conjunctiva bilaterally. Ears, nose, mouth and throat: There are moist mucous membranes and no oral lesions. Neck: The neck is supple, there is no tenderness or JVD. Cardiovascular: There is a regular rate and rhythm. No murmur, rub or gallop is appreciated. Respiratory: To auscultation bilateral, no wheezing no rhonchi no distress respiratory driver noticed Gastrointestinal: Soft, non-distended, non-tender abdomen without masses or organomegaly noted. There is no rebound or guarding present. Bowel sounds are unremarkable. Back: There is no tenderness to palpation in the midline. There is no obvious deformity. Musculoskeletal: Normal ROM, no tenderness, There is no pedal edema. There is no calf tenderness or swelling. No cords were appreciated. Neurological: CN II-XII intact, Cranial nerves III through XII are intact. There are no obvious motor or sensory deficits. Coordination appears grossly intact. Speech is normal. Psychiatric: Cooperative, appropriate mood & affect, normal judgment. Limitations: no limitations Course Vital Signs 09/04/17 20:24 Temperature 97.5 F L Pulse Rate 61 Respiratory 16 Rate Blood Pressure 143/84 O2 Sat by Pulse 98 Oximetry (This is worse now noticed him EKG had a left bundle branch block, CBC, troponin , comp his metabolic panel, chest x-ray are all unremarkable considering that bundle-branch block wore With a history of heart disease and now mild chest pain still present although admit her for observation and she will see cardiology she be admitted to Dr. Correa service Disposition Clinical Impression: Chest pain, Bradycardia Disposition: ADMITTED IP TO THIS HOSP Condition: Good Referrals: Pinky Gilbert MD [Primary Care Provider] - 1-2 days
[2017-09-04] MEDS ORDERED: MORPHINE SULFATE 4 MG/ML SYRINGE IVP PRN (23:15)
[2017-09-04] MEDS ORDERED: NITROGLYCERIN SL TABS 0.4 MG TAB SUBLINGUAL PRN (23:15)
[2017-09-04] MEDS ORDERED: HYDROcodone/APAP 7.5-325MG 1 EACH TAB PO PRN (23:19)
[2017-09-04] MEDS ORDERED: ALPRAZolam 0.25 MG TAB PO PRN (23:19)
[2017-09-04] MEDS ORDERED: IBUPROFEN 200 MG TAB PO PRN (23:19)
[2017-09-04] MEDS ORDERED: ACETAMINOPHEN TAB 325 MG TAB PO PRN (23:19)
[2017-09-05] MEDS ORDERED: LORazepam 1 MG TAB PO ONE (00:24)
[2017-09-05 01:10] VITALS: BMI 26.7
[2017-09-05 03:14] LABS: Cholesterol 117 mg/dL (<200); HDL Cholesterol 57 mg/dL (40-60); LDL Cholesterol,Calculated 48 mg/dL (0-99); Triglycerides 58 mg/dL (<150)
[2017-09-05 03:33] LABS: Creatine Kinase 45 U/L (30-135)
[2017-09-05 03:47] LABS: Creatine Kinase MB 0.5 ng/mL (0.0-2.4); Troponin I <0.012 ng/mL (0.000-0.034)
[2017-09-05 07:45] VITALS: RESP 18
--- NOTE | 2017-09-05 08:51 | P.CRDCN ---
History of Present Illness Consult date: 09/05/17 History of present illness: Mrs. Adorno is a pleasant 61-year-old female past medical history significant for coronary artery disease with recent stenting of axonal and mid RCA, distal circumflex and first diagonal branch of the LAD. She still has residual intermediate disease involving the mid to distal RCA as well as the mid circumflex. She also has a history of dyslipidemia, hypertension, left bundle branch block and palpitations. She has a loop recorder in place currently. She follows with Dr. Granados in the office. We have been asked to see her in consultation for symptoms of chest pain. She states for the past 3 days she has felt a dull achy sensation in the left precordial region. It is described as like a toothache but in the chest. The pain does not radiate down the arm into the back, neck or jaw. She denies associated shortness of breath, palpitations, dizziness, nausea, vomiting or diaphoresis. There was no specific aggravating or alleviating factors for this total intake and she did not take sublingual nitroglycerin at home. Yesterday she was doing some yard work picking up sticks and the pain changed from a telemetry to a tight sensation with associated nausea. When she arrived in the emergency department she was given morphine, Zofran and Ativan. Her pain has subsided and has not returned since admission. EKG reveals left bundle branch block, sinus bradycardia heart rate 54. Telemetry tracings have been unremarkable. Chest x-ray is negative for an acute cardiopulmonary process. Laboratory data has been reviewed, WBC on admission 16.6 repeat this morning 6.2 , hemoglobin 11.7, platelets 246, sodium 138, potassium 3.8, magnesium 2.0, cardiac enzymes negative 2, LDL 48, HDL 57. Current cardiac medications include aspirin 81 mg daily, Plavix 75 mg daily and atorvastatin 40 mg daily. She also takes Ativan, norco, Xanax. Most recent echocardiogram performed May 2017 reveals mildly impaired left ventricular systolic function with ejection fraction 45-50%, mild MR, mild TR and mild pulmonary hypertension with an RVSP of 34.87 mmHg. Review of Systems At the time of my exam: CONSTITUTIONAL: Denies fever. Denies chills. EYES: Denies blurred vision. Denies vision changes. Denies eye pain. EARS, NOSE, MOUTH & THROAT: Denies headache. Denies sore throat. Denies ear pain. CARDIOVASCULAR: Denies chest pain. Denies shortness of breath. Denies orthopnea. Denies PND. Denies palpitations. RESPIRATORY: Denies cough. GASTROINTESTINAL: Denies abdominal pain. Denies diarrhea. Denies constipation. Denies nausea. Denies vomiting. MUSCULOSKELETAL: Denies myalgias. INTEGUMENTARY: Denies pruitis. Denies rash. NEUROLOGIC: Denies numbness. Denies tingling. Denies weakness. PSYCHIATRIC: Denies anxiety. Denies depression. ENDOCRINE: Denies fatigue. Denies weight change. Denies polydipsia. Denies polyurina. GENITOURINARY: Denies burning, hematuria or urgency with micturation. HEMATOLOGIC: Denies history of anemia. Denies bleeding. Past Medical History Past Medical History: Atrial Fibrillation, Coronary Artery Disease (CAD), Chest Pain / Angina, CVA/TIA, GERD/Reflux, Hyperlipidemia, Hypertension, Myocardial Infarction ([place]), Osteoarthritis (OA) Additional Past Medical History / Comment(s): Degenerative disc disease , syncope Last Myocardial Infarction Date:: 09-14 History of Any Multi-Drug Resistant Organisms: None Reported Past Surgical History: Heart Catheterization With Stent, Joint Replacement, Orthopedic Surgery Additional Past Surgical History / Comment(s): Ectopic , loop monitor, 3 stents, Total hip B/L Past Anesthesia/Blood Transfusion Reactions: No Reported Reaction Additional Past Anesthesia/Blood Transfusion Reaction / Comment(s): after hip replacement last time had very slow pulse Date of Last Stent Placement:: 05/2017 Past Psychological History: Anxiety Additional Psychological History / Comment(s): Pt resides alone. Pt normally is independent with her ADls. She drives a car. Smoking Status: Former smoker Past Alcohol Use History: None Reported Additional Past Alcohol Use History / Comment(s): quit smoking November 2016, started smoking at age of 13, smoked 1ppd Past Drug Use History: None Reported - Past Family History Mother Family Medical History: Cancer, Hypertension Additional Family Medical History / Comment(s): Bone,blood,pancreatic CA Father Family Medical History: Hypertension, Thyroid Disorder Additional Family Medical History / Comment(s): Small Cell Carcoma CA Medications and Allergies Home Medications Medication Instructions Recorded Confirmed Type Atorvastatin [Lipitor] 40 mg PO HS 07/28/17 09/04/17 History Clopidogrel [Plavix] 75 mg PO DAILY 07/28/17 09/04/17 History Hydrocodone/Acetaminophen 0.5 tab PO BID PRN 07/29/17 09/04/17 History [Hydrocodon-Acetaminoph 7.5-325] LORazepam [Ativan] 0.5 mg PO BID 5 Days #10 tab 08/12/17 09/04/17 Rx Aspirin 81 mg PO DAILY chew 08/22/17 09/04/17 Rx Ibuprofen [Advil] 200 mg PO Q6HR PRN tab 08/22/17 09/04/17 Rx ALPRAZolam [Xanax] 0.25 mg PO TID PRN #20 tab 08/24/17 09/04/17 Rx Acetaminophen Tab [Tylenol] 650 mg PO Q6HR PRN tab 08/24/17 09/04/17 Rx [id number]-ME-Fcdwxzkdkm 1 tab PO DAILY 09/04/17 09/04/17 History [Folbic] Allergies Allergy/AdvReac Type Severity Reaction Status Date / Time adhesive tape Allergy SKIN TEAR Verified 09/04/17 20:46 Physical Exam Vitals: Vital Signs Temp Pulse Pulse Resp BP BP BP 09/05/17 07:10 97.8 F 58 L 18 116/70 09/05/17 04:00 47 L 16 09/05/17 03:51 97.6 F 46 L 16 101/57 09/05/17 00:00 97.5 F L 52 L 16 132/71 09/04/17 23:32 57 L 18 152/87 09/04/17 22:30 58 L 18 150/78 09/04/17 20:24 97.5 F L 61 16 143/84 Pulse Ox 09/05/17 07:10 98 09/05/17 04:00 09/05/17 03:51 92 L 09/05/17 00:00 98 09/04/17 23:32 98 09/04/17 22:30 98 09/04/17 20:24 98 Intake and Output 09/04/17 09/05/17 09/05/17 22:59 06:59 14:59 Other: # Voids 1 Weight 70.76 kg 70.76 kg Blood pressure 116/70 heart rate 58 afebrile maintaining oxygen saturation on room air GENERAL: This is a 61-year-old female in no apparent distress at the time of my examination. HEENT: Head is atraumatic, normocephalic. Pupils are equal, round. Sclerae anicteric. Conjunctivae are clear. Mucous membranes of the mouth are moist. Neck is supple. There is no jugular venous distention. No carotid bruit is heard. LUNGS: Clear to auscultation no wheezes, rales or rhonchi. No chest wall tenderness is noted on palpation or with deep breathing. HEART: Regular rate and rhythm without murmurs, rubs or gallops. S1 and S2 heard. ABDOMEN: Soft, nontender. Bowel sounds are heard. No organomegaly noted. EXTREMITIES: No evidence of peripheral edema and no calf tenderness noted. VASCULAR: Radial and dorsalis pedis pulses palpated, no evidence of clubbing. NEUROLOGIC: Patient is awake, alert and oriented x3. Results 09/04/17 21:00 09/04/17 21:00 Cardiac Enzymes 09/04/17 09/04/17 09/05/17 Range/Units 21:00 21:00 02:44 AST 25 (14-36) U/L CK-MB (CK-2) 0.5 0.5 (0.0-2.4) ng/mL Troponin I <0.012 <0.012 (0.000-0.034) ng/mL Coagulation 09/04/17 Range/Units 21:00 PT 10.3 (9.0-12.0) sec APTT 25.0 (22.0-30.0) sec Lipids 09/05/17 Range/Units 02:44 Triglycerides 58 (<150) mg/dL Cholesterol 117 (<200) mg/dL HDL Cholesterol 57 (40-60) mg/dL CBC 09/04/17 Range/Units 21:00 WBC 6.2 (3.8-10.6) k/uL RBC 4.19 (3.80-5.40) m/uL Hgb 11.7 (11.4-16.0) gm/dL Hct 36.3 (34.0-46.0) % Plt Count 246 (150-450) k/uL Comprehensive Metabolic Panel 09/04/17 Range/Units 21:00 Sodium 138 (137-145) mmol/L Potassium 3.8 (3.5-5.1) mmol/L Chloride 103 (98-107) mmol/L Carbon Dioxide 22 (22-30) mmol/L BUN 9 (7-17) mg/dL Creatinine 0.82 (0.52-1.04) mg/dL Glucose 84 (74-99) mg/dL Calcium 9.2 (8.4-10.2) mg/dL AST 25 (14-36) U/L ALT 37 (9-52) U/L Alkaline Phosphatase 81 (38-126) U/L Total Protein 6.3 (6.3-8.2) g/dL Albumin 3.9 (3.5-5.0) g/dL Current Medications Generic Name Dose Route Start Last Admin Trade Name Freq PRN Reason Stop Dose Admin Acetaminophen 650 mg 09/04/17 23:19 Tylenol Tab PO Q6HR PRN Mild Pain or Fever > 100.5 Hydrocodone Bitart/Acetaminophen 0.5 each 09/04/17 23:19 Thayer 7.5-325 PO BID PRN Moderate Pain Alprazolam 0.25 mg 09/04/17 23:19 Xanax PO TID PRN Anxiety Aspirin 325 mg 09/05/17 09:00 Aspirin PO DAILY [facility] Aspirin 81 mg 09/05/17 09:00 Aspirin PO DAILY [facility] Atorvastatin Calcium 40 mg 09/05/17 21:00 Lipitor PO HS [facility] Clopidogrel Bisulfate 75 mg 09/05/17 09:00 Plavix PO DAILY [facility] Folic Acid 1 each 09/05/17 09:00 Folbic PO DAILY [facility] Ibuprofen 200 mg 09/04/17 23:19 Advil PO Q6HR PRN Pain Lorazepam 0.5 mg 09/05/17 09:00 Ativan PO BID [facility] Morphine Sulfate 2 mg 09/04/17 23:15 Morphine Sulfate (Inj) IVP Q5M PRN Chest Pain Nitroglycerin 0.4 mg 09/04/17 23:15 Nitrostat SUBLINGUAL Q5M PRN Chest Pain Intake and Output 09/04/17 09/05/17 09/05/17 22:59 06:59 14:59 Other: # Voids 1 Weight 70.76 kg 70.76 kg 09/04/17 21:00 09/04/17 21:00 Assessment and Plan Assessment: ASSESSMENT 1. Chest pain, atypical. An acute coronary event has been ruled out. 2. History of coronary artery disease, recent angioplasty on dual anti-platelet therapy 3. Dyslipidemia 4. Left bundle branch block 5. Sinus bradycardia, loop recorder in place 6. History of anxiety 7. Former tobacco use PLAN An acute coronary event has been ruled out. Add small dose of imdur to her daily regimen. She may eat a heart healthy diet. Increase activity and assess for chest pain. Thank you kindly for this consultation. Nurse Practitioner note has been reviewed, I agree with a documented findings and plan of care. Patient was seen and examined.
[2017-09-05] MEDS ORDERED: MORPHINE ORAL SOLN 10 MG/5 ML CUP PO PRN (08:59)
[2017-09-05] MEDS ORDERED: ASPIRIN 81 MG PO SCH (09:00)
[2017-09-05] MEDS ORDERED: ISOSORBIDE MONONITRATE ER 30 MG TAB.ER.24H PO SCH (09:00)
[2017-09-05] MEDS ORDERED: CLOPIDOGREL 75 MG TAB PO SCH (09:00)
[2017-09-05] MEDS ORDERED: ASPIRIN 325 MG TAB PO SCH (09:00)
[2017-09-05] MEDS ORDERED: LORazepam 0.5 MG TAB PO SCH (09:00)
[2017-09-05] MEDS ORDERED: CYANOCOBALAMIN-FA-PYRIDOXINE 1 EACH TAB PO SCH (09:00)
[2017-09-05 09:40] LABS: Creatine Kinase 44 U/L (30-135)
[2017-09-05 09:53] LABS: Creatine Kinase MB 0.5 ng/mL (0.0-2.4); Troponin I <0.012 ng/mL (0.000-0.034)
[2017-09-05 11:35] VITALS: BP 122/73; PULSE 54; TEMP 97.2
--- NOTE | 2017-09-05 16:47 | HP ---
HISTORY AND PHYSICAL COMBINATION HISTORY AND PHYSICAL AND DISCHARGE SUMMARY: DATE OF SERVICE: 09/05/2017. CHIEF COMPLAINT: Chest pain. HISTORY OF PRESENT ILLNESS: This 61-year-old woman with a past medical history of CAD, multiple stents, history of TIA stroke, history of possible multiple sclerosis, hypertension, hyperlipidemia, being followed by Dr. Gilbert in the outpatient setting, was complaining of left-sided chest pain. The pain was increasing in intensity for the last several days and the patient came to [facility] and was admitted for further evaluation and treatment. The patient also reports exertion with yard work recently. PAST MEDICAL HISTORY: 1. Atrial fibrillation. 2. CAD. 3. CVA, TIA. 4. GERD. 5. Hypertension. 6. Hyperlipidemia. HOME MEDICATIONS: 1. Ativan 0.5 mg b.i.d. 2. Advil 200 mg q.6 p.r.n. 3. Norman 5 mg b.i.d. 4. Folbic 1 p.o. b.i.d. 5. Plavix 75 mg p.o. daily. 6. Lipitor 40 mg daily. 7. Aspirin 81 mg. 8. Tylenol 650 q.6 p.r.n. 9. Xanax 0.25 t.i.d. p.r.n. 10.Nitrostat 0.4 sublingually p.r.n. 11.Imdur 30 mg p.o. daily. ALLERGIES: ADHESIVE TAPE. FAMILY HISTORY: History of cancer, hypertension, pancreatic cancer. SOCIAL HISTORY: Previous history of smoking. No current smoking or alcohol intake. REVIEW OF SYSTEMS: ENT: No diminished hearing. No diminished vision. CARDIOVASCULAR SYSTEM: As mentioned earlier. RESPIRATORY SYSTEM: As mentioned earlier. GI: No nausea, vomiting. : No dysuria or retention. NERVOUS SYSTEM: As mentioned earlier. ALLERGY/IMMUNOLOGY: No asthma, hayfever. MUSCULOSKELETAL: As mentioned earlier. HEMATOLOGY/ONCOLOGY: No history of anemia. ENDOCRINE: No history of diabetes, hypothyroidism. CONSTITUTIONAL: As mentioned earlier. DERMATOLOGY: Negative. RHEUMATOLOGY: Negative. PSYCHIATRY: As mentioned earlier. PHYSICAL EXAMINATION: Patient is alert, oriented x3. The pulse is 58, blood pressure 116/70, respiration 18, temperature 97.8, pulse ox 98% on room air. HEENT: Conjunctivae normal. NECK: No jugular venous distention. CARDIOVASCULAR SYSTEM: S1, S2 muffled. RESPIRATORY SYSTEM: Breath sounds diminished at the bases. A few scattered rhonchi and crackles. ABDOMEN: Soft, non-tender. No mass palpable. LEGS: No edema. No swelling. NERVOUS SYSTEM: No focal deficit. LAB AT THIS TIME: CBC, CMP within normal limits. ASSESSMENT: 1. Chest pain, possibly musculoskeletal. 2. Weakness of both limbs; possible transient ischemic attack previously. 3. Rule out multiple sclerosis. 4. History of recent tachybrady syndrome for possible pacemaker placement as outpatient. 5. History of atrial fibrillation. RECOMMENDATIONS AND DISCUSSION: In this 61-year-old woman who presented with multiple complex medical issues, cardiac workup is normal at this time. Cardiology has seen the patient and recommended outpatient followup. The patient will be discharged with the same medications as listed above with further plans to follow up with Cardiology as well as primary physician in the outpatient setting. Patient is stable, but overall prognosis is guarded because of multiple complex medical issues. I would also recommend that the patient follow up closely with Neurology. See orders for details. MMODL / IJN: [id number] /
[2017-09-05] MEDS ORDERED: ATORVASTATIN 40 MG TAB PO SCH (21:00)
== END 2017-09-05 13:25 | disposition home or self-care (01) ==
LOC: EC 20:14 → 3OBS 23:19
PROVIDERS: ADMIT Hospitalist; ATTEND Hospitalist
DX: R07.89 Other chest pain (principal); R53.1 Weakness; I49.5 Sick sinus syndrome; R11.0 Nausea; I25.10 Atherosclerotic heart disease of native coronary artery without angina pectoris; I10 Essential (primary) hypertension; E78.5 Hyperlipidemia, unspecified; I48.91 Unspecified atrial fibrillation; K21.9 Gastro-esophageal reflux disease without esophagitis; I44.7 Left bundle-branch block, unspecified; Z95.5 Presence of coronary angioplasty implant and graft; Z95.818 Presence of other cardiac implants and grafts; F41.9 Anxiety disorder, unspecified; Z79.02 Long term (current) use of antithrombotics/antiplatelets; Z79.82 Long term (current) use of aspirin; Z79.899 Other long term (current) drug therapy; Z91.048 Other nonmedicinal substance allergy status; Z86.73 Personal history of transient ischemic attack (TIA), and cerebral infarction without residual deficits; Z87.891 Personal history of nicotine dependence; Z83.49 Family history of other endocrine, nutritional and metabolic diseases; Z82.49 Family history of ischemic heart disease and other diseases of the circulatory system; Z80.0 Family history of malignant neoplasm of digestive organs; Z80.8 Family history of malignant neoplasm of other organs or systems; I25.2 Old myocardial infarction; M19.90 Unspecified osteoarthritis, unspecified site
CPT/HCPCS: 99285 ×2; 96374 ×2; 96375 ×2; 96361 ×3; 36415; 93005; 80061; 80053; 82550 ×2; 82553 ×2; 83735; 84484 ×2; 85025; 85610; 85730; 71046; G0378 ×2; J2270; J2405

== ENCOUNTER 2017-09-10 02:33 | Emergency (ER) | payer MEDICARE ==
[2017-09-10 02:41] VITALS: TEMP 97.5
[2017-09-10 03:12] LABS: Basophils % (A) 1 %; Eosinophils # (A) 0.3 k/uL (0-0.7); Eosinophils % (A) 6 %; HCT 40.6 % (34.0-46.0); HGB 13.8 gm/dL (11.4-16.0); Lymphocytes # (A) 2.6 k/uL (1.0-4.8); Lymphocytes % (A) 44 %; MCH 29.3 pg (25.0-35.0); MCHC 33.9 g/dL (31.0-37.0); MCV 86.6 fL (80.0-100.0); Mean Platelet Volume 6.9; Monocytes # (A) 0.3 k/uL (0-1.0); Monocytes % (A) 6 %; Neutrophils # (A) 2.4 k/uL (1.3-7.7); Neutrophils % (A) 42 %; Platelet Count 310 k/uL (150-450); RBC 4.69 m/uL (3.80-5.40); RDW 13.2 % (11.5-15.5); WBC 5.9 k/uL (3.8-10.6)
--- NOTE | 2017-09-10 03:15 | ED ---
General Adult HPI - General Chief complaint: Chest Pain Stated complaint: Chest pain Time Seen by Provider: 09/10/17 02:36 Source: patient, RN notes reviewed, old records reviewed Mode of arrival: wheelchair Limitations: no limitations - History of Present Illness Initial comments: 61-year-old female presenting for evaluation of chest pain. Patient has had pain throughout the day. She also complains of palpitations. These are chronic issues for this patient. She was recently started on folic acid and she believes that this may be contributing to her palpitations. She has had some mild pain over the site of a loop recorder which was implanted approximately one month ago. She also reports some left arm pain and pain in her axilla. No significant dyspnea. She does have chronic angina and has been experiencing this pain today as well. History of CAD status post stenting. Denies abdominal pain. Denies nausea vomiting or diarrhea. Denies cough or URI symptoms. Denies fever or chills. - Related Data Home Medications Medication Instructions Recorded Confirmed Atorvastatin [Lipitor] 40 mg PO HS 07/28/17 09/10/17 Clopidogrel [Plavix] 75 mg PO DAILY 07/28/17 09/10/17 Hydrocodone/Acetaminophen 0.5 tab PO BID PRN 07/29/17 09/10/17 [Hydrocodon-Acetaminoph 7.5-325] [id number] 1 tab PO DAILY 09/04/17 09/10/17 [Folbic] Previous Rx's Medication Instructions Recorded LORazepam [Ativan] 0.5 mg PO BID 5 Days #10 tab 08/12/17 Aspirin 81 mg PO DAILY chew 08/22/17 Ibuprofen [Advil] 200 mg PO Q6HR PRN tab 08/22/17 ALPRAZolam [Xanax] 0.25 mg PO TID PRN #20 tab 08/24/17 Acetaminophen Tab [Tylenol] 650 mg PO Q6HR PRN tab 08/24/17 Isosorbide Mononitrate ER [Imdur] 30 mg PO DAILY #20 tab.er.24h 09/05/17 Nitroglycerin Sl Tabs [Nitrostat] 0.4 mg SUBLINGUAL Q5M PRN #20 tab 09/05/17 Allergies Allergy/AdvReac Type Severity Reaction Status Date / Time adhesive tape Allergy SKIN TEAR Verified 09/10/17 02:41 Review of Systems ROS Statement: Those systems with pertinent positive or pertinent negative responses have been documented in the HPI. ROS Other: All systems not noted in ROS Statement are negative. Past Medical History Past Medical History: Atrial Fibrillation, Coronary Artery Disease (CAD), Chest Pain / Angina, CVA/TIA, GERD/Reflux, Hyperlipidemia, Hypertension, Myocardial Infarction ([place]), Osteoarthritis (OA) Additional Past Medical History / Comment(s): Degenerative disc disease , syncope Last Myocardial Infarction Date:: 5-17 History of Any Multi-Drug Resistant Organisms: None Reported Past Surgical History: Heart Catheterization With Stent, Joint Replacement, Orthopedic Surgery Additional Past Surgical History / Comment(s): Ectopic , loop monitor, 3 stents, Total hip B/L Past Anesthesia/Blood Transfusion Reactions: No Reported Reaction Additional Past Anesthesia/Blood Transfusion Reaction / Comment(s): after hip replacement last time had very slow pulse Date of Last Stent Placement:: 05/2017 Past Psychological History: Anxiety Smoking Status: Former smoker Past Alcohol Use History: None Reported Past Drug Use History: None Reported - Past Family History Mother Family Medical History: Cancer, Hypertension Additional Family Medical History / Comment(s): Bone,blood,pancreatic CA Father Family Medical History: Hypertension, Thyroid Disorder Additional Family Medical History / Comment(s): Small Cell Carcoma CA General Exam Limitations: no limitations General appearance: alert, in no apparent distress Head exam: Present: atraumatic, normocephalic Eye exam: Present: normal appearance, PERRL, EOMI ENT exam: Present: normal exam Neck exam: Present: normal inspection. Absent: tenderness, meningismus Respiratory exam: Present: normal lung sounds bilaterally. Absent: respiratory distress, wheezes Cardiovascular Exam: Present: regular rate, normal rhythm GI/Abdominal exam: Present: soft. Absent: distended, tenderness Extremities exam: Present: normal inspection. Absent: full ROM, tenderness Back exam: Present: normal inspection. Absent: full ROM, tenderness Neurological exam: Present: alert, oriented X3, CN II-XII intact. Absent: motor sensory deficit Psychiatric exam: Present: normal affect, normal mood Skin exam: Present: warm, dry, intact. Absent: cyanosis, diaphoretic Course Vital Signs 09/10/17 09/10/17 02:37 04:00 Temperature 97.5 F L Pulse Rate 81 54 L Respiratory 20 18 Rate Blood Pressure 152/81 131/90 O2 Sat by Pulse 100 97 Oximetry EKG Findings - EKG Comments: EKG Findings:: EKG normal sinus rhythm, left bundle branch block, rate of 62, AL interval 166, QRS duration 136, QTC 450, no ST segment elevation Medical Decision Making - Medical Decision Making 61-year-old female history of CAD status post stenting presenting with chest pain. Patient has 2 separate pain complaints, one is over the site of her loop recorder. This is not erythematous, non-indurated, no signs of infection. Second is her anginal pain which she has chronically. Laboratory studies are obtained including CBC, CMP, and troponin these are all within normal limits. Chest x-ray negative for acute intrathoracic pathology. EKG is left bundle which is known to this patient and there is no acute signs of ischemia. I did have a long discussion regarding the patient's symptoms and she is offered observation for cardiology evaluation, she declines she prefers to be discharged. Diagnosis: Chest pain - Lab Data Result diagrams: 09/10/17 02:54 09/10/17 02:54 Lab Results 09/10/17 09/10/17 09/10/17 Range/Units 02:54 02:54 02:54 WBC 5.9 (3.8-10.6) k/uL RBC 4.69 (3.80-5.40) m/uL Hgb 13.8 (11.4-16.0) gm/dL Hct 40.6 (34.0-46.0) % MCV 86.6 (80.0-100.0) fL MCH 29.3 (25.0-35.0) pg MCHC 33.9 (31.0-37.0) g/dL RDW 13.2 (11.5-15.5) % Plt Count 310 (150-450) k/uL Neutrophils % 42 % Lymphocytes % 44 % Monocytes % 6 % Eosinophils % 6 % Basophils % 1 % Neutrophils # 2.4 (1.3-7.7) k/uL Lymphocytes # 2.6 (1.0-4.8) k/uL Monocytes # 0.3 (0-1.0) k/uL Eosinophils # 0.3 (0-0.7) k/uL Basophils # 0.0 (0-0.2) k/uL PT (9.0-12.0) sec INR (<1.2) APTT (22.0-30.0) sec Sodium 140 (137-145) mmol/L Potassium 4.5 (3.5-5.1) mmol/L Chloride 102 (98-107) mmol/L Carbon Dioxide 24 (22-30) mmol/L Anion Gap 14 mmol/L BUN 8 (7-17) mg/dL Creatinine 0.80 (0.52-1.04) mg/dL Est GFR (CKD-EPI)AfAm >90 (>60 ml/min/1.73 sqM) Est GFR (CKD-EPI)NonAf 81 (>60 ml/min/1.73 sqM) Glucose 94 (74-99) mg/dL Calcium 9.5 (8.4-10.2) mg/dL Magnesium 2.0 (1.6-2.3) mg/dL Total Bilirubin 0.7 (0.2-1.3) mg/dL AST 34 (14-36) U/L ALT 41 (9-52) U/L Alkaline Phosphatase 88 (38-126) U/L Total Creatine Kinase 57 (30-135) U/L CK-MB (CK-2) 0.5 (0.0-2.4) ng/mL CK-MB (CK-2) Rel Index 0.9 Troponin I <0.012 (0.000-0.034) ng/mL Total Protein 7.7 (6.3-8.2) g/dL Albumin 4.6 (3.5-5.0) g/dL 09/10/17 Range/Units 02:54 WBC (3.8-10.6) k/uL RBC (3.80-5.40) m/uL Hgb (11.4-16.0) gm/dL Hct (34.0-46.0) % MCV (80.0-100.0) fL MCH (25.0-35.0) pg MCHC (31.0-37.0) g/dL RDW (11.5-15.5) % Plt Count (150-450) k/uL Neutrophils % % Lymphocytes % % Monocytes % % Eosinophils % % Basophils % % Neutrophils # (1.3-7.7) k/uL Lymphocytes # (1.0-4.8) k/uL Monocytes # (0-1.0) k/uL Eosinophils # (0-0.7) k/uL Basophils # (0-0.2) k/uL PT 10.4 (9.0-12.0) sec INR 1.1 (<1.2) APTT 26.0 (22.0-30.0) sec Sodium (137-145) mmol/L Potassium (3.5-5.1) mmol/L Chloride (98-107) mmol/L Carbon Dioxide (22-30) mmol/L Anion Gap mmol/L BUN (7-17) mg/dL Creatinine (0.52-1.04) mg/dL Est GFR (CKD-EPI)AfAm (>60 ml/min/1.73 sqM) Est GFR (CKD-EPI)NonAf (>60 ml/min/1.73 sqM) Glucose (74-99) mg/dL Calcium (8.4-10.2) mg/dL Magnesium (1.6-2.3) mg/dL Total Bilirubin (0.2-1.3) mg/dL AST (14-36) U/L ALT (9-52) U/L Alkaline Phosphatase (38-126) U/L Total Creatine Kinase (30-135) U/L CK-MB (CK-2) (0.0-2.4) ng/mL CK-MB (CK-2) Rel Index Troponin I (0.000-0.034) ng/mL Total Protein (6.3-8.2) g/dL Albumin (3.5-5.0) g/dL Disposition Clinical Impression: Chest pain Disposition: HOME SELF-CARE Condition: Fair Instructions: Chest Pain (ED) Is patient prescribed a controlled substance at d/c from ED?: No Referrals: Pinky Gilbert MD [Primary Care Provider] - 1-2 days Rhett Granados MD [STAFF PHYSICIAN] - 1-2 days Time of Disposition: 04:21
--- NOTE | 2017-09-10 03:22 | XR ---
EXAMINATION TYPE: XR chest 2V DATE OF EXAM: 09/10/2017 COMPARISON: 09/04/2017 HISTORY: Chest pain TECHNIQUE: Frontal and lateral views of the chest are obtained. FINDINGS: Heart and mediastinum are normal. Lungs are clear. Diaphragm is normal. Bony thorax is int act. IMPRESSION: Normal chest. No change.
[2017-09-10 03:23] LABS: Albumin 4.6 g/dL (3.5-5.0); Anion Gap 14 mmol/L; Calcium 9.5 mg/dL (8.4-10.2); Carbon Dioxide 24 mmol/L (22-30); Chloride 102 mmol/L (98-107); Glucose 94 mg/dL (74-99); Sodium 140 mmol/L (137-145); Total Bilirubin 0.7 mg/dL (0.2-1.3); Total Protein 7.7 g/dL (6.3-8.2)
[2017-09-10 03:27] LABS: ALT 41 U/L (9-52); AST 34 U/L (14-36); Alkaline Phosphatase 88 U/L (38-126); Blood Urea Nitrogen 8 mg/dL (7-17); Creatine Kinase 57 U/L (30-135); Potassium 4.5 mmol/L (3.5-5.1)
[2017-09-10 03:40] LABS: Creatine Kinase MB 0.5 ng/mL (0.0-2.4); Troponin I <0.012 ng/mL (0.000-0.034)
[2017-09-10 03:45] LABS: INR 1.1 (<1.2); Prothrombin Time 10.4 sec (9.0-12.0)
[2017-09-10 04:18] VITALS: BP 131/90; PULSE 54; RESP 18
== END 2017-09-10 04:30 | disposition home or self-care (01) ==
LOC: EC 02:33
DX: R07.9 Chest pain, unspecified (principal); R00.2 Palpitations; M79.602 Pain in left arm; I48.91 Unspecified atrial fibrillation; I25.119 Atherosclerotic heart disease of native coronary artery with unspecified angina pectoris; E78.5 Hyperlipidemia, unspecified; I25.2 Old myocardial infarction; Z86.73 Personal history of transient ischemic attack (TIA), and cerebral infarction without residual deficits; Z87.891 Personal history of nicotine dependence; Z79.01 Long term (current) use of anticoagulants; Z79.899 Other long term (current) drug therapy; Z91.048 Other nonmedicinal substance allergy status; Z95.5 Presence of coronary angioplasty implant and graft
CPT/HCPCS: 36415; 71046; 80053; 82550; 82553; 83735; 84484; 85025; 85610; 85730; 93005; 99285

== ENCOUNTER 2017-09-17 23:32 | Emergency (ER) | payer MEDICARE ==
[2017-09-18 00:18] VITALS: BP 132/65; PULSE 53; RESP 18; TEMP 98
[2017-09-18] MEDS ORDERED: KETOROLAC 60 MG/2 ML VIAL IM STA (00:31)
--- NOTE | 2017-09-18 00:33 | ED ---
General Adult HPI - General Chief complaint: Back Pain/Injury Stated complaint: back/hip/leg pain Time Seen by Provider: 09/18/17 00:10 Source: patient, RN notes reviewed Mode of arrival: ambulatory Limitations: no limitations - History of Present Illness Initial comments: This a 61-year-old female presents emergency department stating that she has a little soreness in her hips and chronic lower back pain from degenerative disc disease. Patient states she has been being treated for back pain by his doctor in [place]. Patient states tonight it just felt a little more sore so she thought she would get checked out. Patient has no lack of range of motion. Patient has no numbness or weakness. Patient had no injury or trauma. Patient denies any swelling or redness. Patient said no incontinence or urinary retention problems. - Related Data Home Medications Medication Instructions Recorded Confirmed Atorvastatin [Lipitor] 40 mg PO HS 07/28/17 09/10/17 Clopidogrel [Plavix] 75 mg PO DAILY 07/28/17 09/10/17 Hydrocodone/Acetaminophen 0.5 tab PO BID PRN 07/29/17 09/10/17 [Hydrocodon-Acetaminoph 7.5-325] [id number] 1 tab PO DAILY 09/04/17 09/10/17 [Folbic] Previous Rx's Medication Instructions Recorded LORazepam [Ativan] 0.5 mg PO BID 5 Days #10 tab 08/12/17 Aspirin 81 mg PO DAILY chew 08/22/17 Ibuprofen [Advil] 200 mg PO Q6HR PRN tab 08/22/17 ALPRAZolam [Xanax] 0.25 mg PO TID PRN #20 tab 08/24/17 Acetaminophen Tab [Tylenol] 650 mg PO Q6HR PRN tab 08/24/17 Isosorbide Mononitrate ER [Imdur] 30 mg PO DAILY #20 tab.er.24h 09/05/17 Nitroglycerin Sl Tabs [Nitrostat] 0.4 mg SUBLINGUAL Q5M PRN #20 tab 09/05/17 Allergies Allergy/AdvReac Type Severity Reaction Status Date / Time adhesive tape Allergy SKIN TEAR Verified 09/18/17 00:18 Review of Systems ROS Statement: Those systems with pertinent positive or pertinent negative responses have been documented in the HPI. ROS Other: All systems not noted in ROS Statement are negative. Past Medical History Past Medical History: Atrial Fibrillation, Coronary Artery Disease (CAD), Chest Pain / Angina, CVA/TIA, GERD/Reflux, Hyperlipidemia, Hypertension, Myocardial Infarction ([place]), Osteoarthritis (OA) Additional Past Medical History / Comment(s): Degenerative disc disease , syncope, chornic back pain Last Myocardial Infarction Date:: 5-17 History of Any Multi-Drug Resistant Organisms: None Reported Past Surgical History: Heart Catheterization With Stent, Joint Replacement, Orthopedic Surgery Additional Past Surgical History / Comment(s): Ectopic , loop monitor, 3 stents, Total hip B/L Past Anesthesia/Blood Transfusion Reactions: No Reported Reaction Additional Past Anesthesia/Blood Transfusion Reaction / Comment(s): after hip replacement last time had very slow pulse Date of Last Stent Placement:: 05/2017 Past Psychological History: Anxiety Smoking Status: Former smoker Past Alcohol Use History: None Reported Past Drug Use History: None Reported - Past Family History Mother Family Medical History: Cancer, Hypertension Additional Family Medical History / Comment(s): Bone,blood,pancreatic CA Father Family Medical History: Hypertension, Thyroid Disorder Additional Family Medical History / Comment(s): Small Cell Carcoma [place] General Exam - General Exam Comments Initial Comments: GENERAL Patient is well-developed and well-nourished. Patient is in mild distress. EYES Patient's pupils are equal and round. Extraocular motion is intact SKIN Unremarkable NEURO The patient is alert and oriented 3 PYSCH Patient has normal interpersonal interactions. MUSCULOSKELETAL Patient has full range of motion at either hip. There is no pain elicited when she moves her hips in bed. Patient is able to ablate without problem bend over without problem. Limitations: no limitations Course Vital Signs 09/18/17 00:15 Temperature 98 F Pulse Rate 53 L Respiratory 18 Rate Blood Pressure 132/65 O2 Sat by Pulse 98 Oximetry Disposition Clinical Impression: Degenerative disc disease, Strain of hip Disposition: HOME SELF-CARE Condition: Good Instructions: Chronic Back Pain (ED), Hip Sprain (ED) Is patient prescribed a controlled substance at d/c from ED?: No Referrals: Pinky Gilbert MD [Primary Care Provider] - 1-2 days Time of Disposition: 00:33
== END 2017-09-18 00:50 | disposition home or self-care (01) ==
LOC: EC 23:32
DX: S76.012A Strain of muscle, fascia and tendon of left hip, initial encounter (principal); S76.011A Strain of muscle, fascia and tendon of right hip, initial encounter; M51.36 Other intervertebral disc degeneration, lumbar region; I48.91 Unspecified atrial fibrillation; I25.119 Atherosclerotic heart disease of native coronary artery with unspecified angina pectoris; Z86.73 Personal history of transient ischemic attack (TIA), and cerebral infarction without residual deficits; I25.2 Old myocardial infarction; Z87.891 Personal history of nicotine dependence; Z79.01 Long term (current) use of anticoagulants; Z79.899 Other long term (current) drug therapy; Z91.048 Other nonmedicinal substance allergy status; Z95.5 Presence of coronary angioplasty implant and graft
CPT/HCPCS: 99283; 96372; J1885

== ENCOUNTER 2017-09-22 22:56 | Emergency (ER) | payer MEDICARE ==
[2017-09-22 23:12] VITALS: RESP 18
--- NOTE | 2017-09-23 00:47 | ED ---
Extremity Problem HPI - General Chief complaint: Extremity Problem,Nontraumatic Stated complaint: Foot swelling Time Seen by Provider: 09/23/17 00:34 Source: patient, RN notes reviewed Mode of arrival: wheelchair Limitations: no limitations - History of Present Illness Initial comments: This is a 61-year-old female who presents to the emergency department with chief complaint of bilateral feet swelling. Patient states that this is been going on for the past 3 days. She also reports intermittent chest pain that she described as squeezing. She states that during these episodes of chest pain she also develops a cough and shortness of breath. She states that she usually takes Ativan which relieves the chest pain but that this has not been helping. Patient states that while at physical therapy this morning they had to stop her therapy because she became winded easily. Patient states that she has recently had sinus and nasal congestion. Patient reports a history of GA, stroke and 3 stents. She does state that she sees Dr. Granados,director product management. Patient denies any recent fevers or chills, abdominal pain, nausea or vomiting, diarrhea or constipation. - Related Data Home Medications Medication Instructions Recorded Confirmed Atorvastatin [Lipitor] 40 mg PO HS 07/28/17 09/10/17 Clopidogrel [Plavix] 75 mg PO DAILY 07/28/17 09/10/17 Hydrocodone/Acetaminophen 0.5 tab PO BID PRN 07/29/17 09/10/17 [Hydrocodon-Acetaminoph 7.5-325] Ztlzwvojffuiku-TD-Jihjddpiki 1 tab PO DAILY 09/04/17 09/10/17 [Folbic] Previous Rx's Medication Instructions Recorded LORazepam [Ativan] 0.5 mg PO BID 5 Days #10 tab 08/12/17 Aspirin 81 mg PO DAILY chew 08/22/17 Ibuprofen [Advil] 200 mg PO Q6HR PRN tab 08/22/17 ALPRAZolam [Xanax] 0.25 mg PO TID PRN #20 tab 08/24/17 Acetaminophen Tab [Tylenol] 650 mg PO Q6HR PRN tab 08/24/17 Isosorbide Mononitrate ER [Imdur] 30 mg PO DAILY #20 tab.er.24h 09/05/17 Nitroglycerin Sl Tabs [Nitrostat] 0.4 mg SUBLINGUAL Q5M PRN #20 tab 09/05/17 Allergies Allergy/AdvReac Type Severity Reaction Status Date / Time adhesive tape Allergy SKIN TEAR Verified 09/22/17 23:12 Review of Systems ROS Statement: Those systems with pertinent positive or pertinent negative responses have been documented in the HPI. ROS Other: All systems not noted in ROS Statement are negative. Past Medical History Past Medical History: Atrial Fibrillation, Coronary Artery Disease (CAD), Chest Pain / Angina, CVA/TIA, GERD/Reflux, Hyperlipidemia, Hypertension, Myocardial Infarction (GA), Osteoarthritis (OA) Additional Past Medical History / Comment(s): Degenerative disc disease , syncope, chornic back pain Last Myocardial Infarction Date:: 5 History of Any Multi-Drug Resistant Organisms: None Reported Past Surgical History: Heart Catheterization With Stent, Joint Replacement, Orthopedic Surgery Additional Past Surgical History / Comment(s): Ectopic , loop monitor, 3 stents, Total hip B/L Past Anesthesia/Blood Transfusion Reactions: No Reported Reaction Additional Past Anesthesia/Blood Transfusion Reaction / Comment(s): after hip replacement last time had very slow pulse Date of Last Stent Placement:: 05/2017 Past Psychological History: Anxiety Smoking Status: Former smoker Past Alcohol Use History: None Reported Past Drug Use History: None Reported - Past Family History Mother Family Medical History: Cancer, Hypertension Additional Family Medical History / Comment(s): Bone,blood,pancreatic CA Father Family Medical History: Hypertension, Thyroid Disorder Additional Family Medical History / Comment(s): Small Cell Carcoma CA General Exam - General Exam Comments Initial Comments: General: Awake and alert, well-developed; in no apparent distress. HEENT: Head atraumatic, normocephalic. Pupils are equal, round and reactive to light. Extraocular movements intact. Oropharynx moist without erythema or exudate. Neck: Supple. Normal ROM. Cardiovascular: Regular rate and rhythm. No murmurs, rubs or gallops. Chest symmetrical. Respiratory: Lungs clear to auscultation bilaterally. No wheezes, rales or rhonchi. Normal respiratory effort with no use of accessory muscles. Abdomen: Soft, non-tender, non-distended. No rigidity, rebound or guarding. Normal bowel sounds in all 4 quadrants. Musculoskeletal: Normal ROM, no tenderness bilateral upper and lower extremities. Skin: [place], warm and dry without rashes or lesions. Mild, non-pitting bilateral pedal edema. Neurological: Alert and oriented x3. CN II-XII grossly intact. Speech is fluent and answers are appropriate. No focal neuro deficits. Psychiatric: Normal mood and affect. No overt signs of depression or anxiety noted. Limitations: no limitations Course Vital Signs 09/22/17 23:11 Temperature 98.1 F Pulse Rate 55 L Respiratory 18 Rate Blood Pressure 130/76 O2 Sat by Pulse 97 Oximetry Medical Decision Making - Medical Decision Making This is a 61-year-old female who presents to the emergency department with chief complaint of bilateral feet swelling and chest pain for the past 3 days. Patient's vital signs are stable and she is in no acute distress. There is mild non-pitting pedal edema bilaterally. Chest x-ray revealed no acute abnormalities. EKG revealed sinus bradycardia but was otherwise unremarkable. Troponin was negative. BNP was negative. CBC, coags and CMP were unremarkable. Findings were discussed with patient. She'll be discharged home at this time. Recommend following up with her primary care provider and director product management. She is in agreement and voices understanding. All questions answered. - Lab Data Result diagrams: 09/23/17 01:09 09/23/17 01:09 Lab Results 09/23/17 09/23/17 09/23/17 Range/Units 01:09 01:09 01:09 WBC 8.4 (3.8-10.6) k/uL RBC 4.59 (3.80-5.40) m/uL Hgb 13.2 (11.4-16.0) gm/dL Hct 40.0 (34.0-46.0) % MCV 87.1 (80.0-100.0) fL MCH 28.8 (25.0-35.0) pg MCHC 33.0 (31.0-37.0) g/dL RDW 13.4 (11.5-15.5) % Plt Count 276 (150-450) k/uL Neutrophils % 69 % Lymphocytes % 23 % Monocytes % 5 % Eosinophils % 2 % Basophils % 0 % Neutrophils # 5.8 (1.3-7.7) k/uL Lymphocytes # 1.9 (1.0-4.8) k/uL Monocytes # 0.4 (0-1.0) k/uL Eosinophils # 0.2 (0-0.7) k/uL Basophils # 0.0 (0-0.2) k/uL PT (9.0-12.0) sec INR (<1.2) APTT (22.0-30.0) sec Sodium 139 (137-145) mmol/L Potassium 3.8 (3.5-5.1) mmol/L Chloride 104 (98-107) mmol/L Carbon Dioxide 22 (22-30) mmol/L Anion Gap 13 mmol/L BUN 6 L (7-17) mg/dL Creatinine 0.80 (0.52-1.04) mg/dL Est GFR (CKD-EPI)AfAm >90 (>60 ml/min/1.73 sqM) Est GFR (CKD-EPI)NonAf 81 (>60 ml/min/1.73 sqM) Glucose 91 (74-99) mg/dL Calcium 9.7 (8.4-10.2) mg/dL Total Bilirubin 0.6 (0.2-1.3) mg/dL AST 32 (14-36) U/L ALT 38 (9-52) U/L Alkaline Phosphatase 83 (38-126) U/L Troponin I (0.000-0.034) ng/mL NT-Pro-B Natriuret Pep 88 pg/mL Total Protein 6.9 (6.3-8.2) g/dL Albumin 4.5 (3.5-5.0) g/dL 09/23/17 09/23/17 Range/Units 01:09 01:09 WBC (3.8-10.6) k/uL RBC (3.80-5.40) m/uL Hgb (11.4-16.0) gm/dL Hct (34.0-46.0) % MCV (80.0-100.0) fL MCH (25.0-35.0) pg MCHC (31.0-37.0) g/dL RDW (11.5-15.5) % Plt Count (150-450) k/uL Neutrophils % % Lymphocytes % % Monocytes % % Eosinophils % % Basophils % % Neutrophils # (1.3-7.7) k/uL Lymphocytes # (1.0-4.8) k/uL Monocytes # (0-1.0) k/uL Eosinophils # (0-0.7) k/uL Basophils # (0-0.2) k/uL PT 10.4 (9.0-12.0) sec INR 1.1 (<1.2) APTT 25.0 (22.0-30.0) sec Sodium (137-145) mmol/L Potassium (3.5-5.1) mmol/L Chloride (98-107) mmol/L Carbon Dioxide (22-30) mmol/L Anion Gap mmol/L BUN (7-17) mg/dL Creatinine (0.52-1.04) mg/dL Est GFR (CKD-EPI)AfAm (>60 ml/min/1.73 sqM) Est GFR (CKD-EPI)NonAf (>60 ml/min/1.73 sqM) Glucose (74-99) mg/dL Calcium (8.4-10.2) mg/dL Total Bilirubin (0.2-1.3) mg/dL AST (14-36) U/L ALT (9-52) U/L Alkaline Phosphatase (38-126) U/L Troponin I <0.012 (0.000-0.034) ng/mL NT-Pro-B Natriuret Pep pg/mL Total Protein (6.3-8.2) g/dL Albumin (3.5-5.0) g/dL - Radiology Data Radiology results: report reviewed Chest x-ray impression: Normal chest. No change. Disposition Clinical Impression: Chest pain, Pedal edema Disposition: HOME SELF-CARE Condition: Good Instructions: Chest Pain (ED), Leg Edema (ED) Additional Instructions: Please follow-up with your director product management within 1-2 days. Please follow up with primary care provider within 1-2 days. Return to emergency department if symptoms should worsen or any concerns arise. Is patient prescribed a controlled substance at d/c from ED?: No Referrals: Pinky Gilbert MD [Primary Care Provider] - 1-2 days Time of Disposition: 02:29
--- NOTE | 2017-09-23 01:05 | XR ---
EXAMINATION TYPE: XR chest 2V DATE OF EXAM: 09/23/2017 COMPARISON: 09/10/2017 HISTORY: Chest pain TECHNIQUE: Frontal and lateral views of the chest are obtained. FINDINGS: Heart and mediastinum are normal. Lungs are clear. Diaphragm is normal. There are chest le ads. IMPRESSION: Normal chest. No change.
[2017-09-23 01:19] LABS: Basophils % (A) 0 %; Eosinophils # (A) 0.2 k/uL (0-0.7); Eosinophils % (A) 2 %; HGB 13.2 gm/dL (11.4-16.0); Lymphocytes # (A) 1.9 k/uL (1.0-4.8); Lymphocytes % (A) 23 %; MCH 28.8 pg (25.0-35.0); MCV 87.1 fL (80.0-100.0); Mean Platelet Volume 6.9; Monocytes # (A) 0.4 k/uL (0-1.0); Monocytes % (A) 5 %; Neutrophils # (A) 5.8 k/uL (1.3-7.7); Neutrophils % (A) 69 %; Platelet Count 276 k/uL (150-450); RBC 4.59 m/uL (3.80-5.40); RDW 13.4 % (11.5-15.5); WBC 8.4 k/uL (3.8-10.6)
[2017-09-23 01:27] LABS: INR 1.1 (<1.2); Prothrombin Time 10.4 sec (9.0-12.0)
[2017-09-23 01:29] LABS: ALT 38 U/L (9-52); AST 32 U/L (14-36); Albumin 4.5 g/dL (3.5-5.0); Alkaline Phosphatase 83 U/L (38-126); Anion Gap 13 mmol/L; Blood Urea Nitrogen 6 mg/dL (7-17); Calcium 9.7 mg/dL (8.4-10.2); Carbon Dioxide 22 mmol/L (22-30); Chloride 104 mmol/L (98-107); Glucose 91 mg/dL (74-99); Potassium 3.8 mmol/L (3.5-5.1); Sodium 139 mmol/L (137-145); Total Bilirubin 0.6 mg/dL (0.2-1.3); Total Protein 6.9 g/dL (6.3-8.2)
[2017-09-23 02:41] VITALS: BP 153/74; PULSE 57; TEMP 97.1
== END 2017-09-23 02:45 | disposition home or self-care (01) ==
LOC: EC 22:56
DX: R60.0 Localized edema (principal); R07.9 Chest pain, unspecified; R00.1 Bradycardia, unspecified; E78.5 Hyperlipidemia, unspecified; I10 Essential (primary) hypertension; I25.10 Atherosclerotic heart disease of native coronary artery without angina pectoris; I25.2 Old myocardial infarction; Z87.891 Personal history of nicotine dependence; Z79.02 Long term (current) use of antithrombotics/antiplatelets; Z79.899 Other long term (current) drug therapy; Z91.09 Other allergy status, other than to drugs and biological substances; Z95.5 Presence of coronary angioplasty implant and graft; Z86.73 Personal history of transient ischemic attack (TIA), and cerebral infarction without residual deficits; Z82.49 Family history of ischemic heart disease and other diseases of the circulatory system
CPT/HCPCS: 36415; 71046; 80053; 83880; 84484; 85025; 85610; 85730; 93005; 99284

== ENCOUNTER → 2017-09-28 | Outpatient (CLI) | payer MEDICARE ==
--- NOTE | 2017-09-29 09:57 | MM ---
Reason for exam: screening (asymptomatic). Last mammogram was performed 2 years and 10 months ago. History: Patient is postmenopausal and is nulliparous. Physical Findings: A clinical breast exam by your physician is recommended on an annual basis and results should be correlated with mammographic findings. MG 3D Screening Mammo W/Cad Bilateral CC and MLO view(s) were taken. Prior study comparison: December 09, 2014, bilateral MG screening mammo w CAD. December 05, 2013, bilateral MG screening mammo w CAD. The breast tissue is heterogeneously dense. This may lower the sensitivity of mammography. Finding: There are typically benign round, diffuse/scattered and grouped calcifications in both breasts. There is no discrete abnormality. Left posterior chest wall metallic device partially imaged. ASSESSMENT: Benign, BI-RAD 2 RECOMMENDATION: Routine screening mammogram of both breasts in 1 year.
== END | disposition home or self-care (01) ==
LOC: RADMAMWWP 10:58
PROVIDERS: ATTEND Internal Medicine
DX: Z12.31 Encounter for screening mammogram for malignant neoplasm of breast (principal)
CPT/HCPCS: 77063; 77067

== ENCOUNTER 2018-01-16 22:49 | Emergency (ER) | payer MEDICARE ==
[2018-01-16] MEDS ORDERED: ASPIRIN 81 MG PO STA (23:00)
[2018-01-16 23:22] LABS: Basophils % (A) 1 %; Eosinophils # (A) 0.2 k/uL (0-0.7); Eosinophils % (A) 3 %; HCT 38.9 % (34.0-46.0); HGB 13.1 gm/dL (11.4-16.0); Lymphocytes # (A) 2.2 k/uL (1.0-4.8); Lymphocytes % (A) 32 %; MCH 29.5 pg (25.0-35.0); MCHC 33.6 g/dL (31.0-37.0); MCV 87.7 fL (80.0-100.0); Mean Platelet Volume 7.4; Monocytes # (A) 0.5 k/uL (0-1.0); Monocytes % (A) 7 %; Neutrophils # (A) 3.9 k/uL (1.3-7.7); Neutrophils % (A) 56 %; Platelet Count 275 k/uL (150-450); RBC 4.44 m/uL (3.80-5.40); RDW 13.8 % (11.5-15.5); WBC 6.9 k/uL (3.8-10.6)
--- NOTE | 2018-01-16 23:32 | XR ---
EXAMINATION TYPE: XR chest 2V DATE OF EXAM: 01/16/2018 COMPARISON: 12/30/2017 HISTORY: Chest pain TECHNIQUE: Frontal and lateral views of the chest are obtained. FINDINGS: There is no heart failure nor confluent pneumonic infiltrate. Costophrenic angles are nick r. There are chest leads. IMPRESSION: No active cardiopulmonary disease. Normal heart. No change.
[2018-01-16 23:33] LABS: INR 1.1 (<1.2); Partial Thromboplastin Time 25.6 sec (22.0-30.0); Prothrombin Time 10.4 sec (9.0-12.0)
[2018-01-16 23:37] LABS: ALT 40 U/L (9-52); AST 28 U/L (14-36); Alkaline Phosphatase 87 U/L (38-126); Anion Gap 8 mmol/L; Blood Urea Nitrogen 9 mg/dL (7-17); Calcium 9.3 mg/dL (8.4-10.2); Carbon Dioxide 26 mmol/L (22-30); Chloride 106 mmol/L (98-107); Glucose 102 mg/dL (74-99); Potassium 3.8 mmol/L (3.5-5.1); Sodium 140 mmol/L (137-145); Total Bilirubin 0.4 mg/dL (0.2-1.3); Total Protein 6.8 g/dL (6.3-8.2)
[2018-01-16 23:47] LABS: Creatine Kinase 60 U/L (30-135)
[2018-01-16 23:59] LABS: Creatine Kinase MB 0.8 ng/mL (0.0-2.4); Troponin I <0.012 ng/mL (0.000-0.034)
--- NOTE | 2018-01-17 00:41 | ED ---
Chest Pain HPI - General Source: patient, RN notes reviewed, old records reviewed Mode of arrival: ambulatory Limitations: no limitations <Myles Pagan - Last Filed: 01/17/18 00:53> <Cecilia Johnston - Last Filed: 01/17/18 03:17> - General Chief Complaint: Chest Pain Stated Complaint: Chest Pressure Time Seen by Provider: 01/16/18 22:58 - History of Present Illness Initial Comments: This a 62-year-old female presents emergency Department chief complaint of chest pain. Patient states his symptoms have been present for last few days. She states it does wax and wane. Patient states nonradiating anterior chest pain. Patient denies any headache, dizziness, shortness breath, nausea, vomiting, diaphoretic episodes. Patient has known coronary artery disease. Patient states that she had stents placed in May. Patient states that she is scheduled for pacemaker placement by Dr. Granados for bradycardia. Patient states that she has not contacted her battery stacker or PCP regarding her symptoms. She states that they did not dissipate so she came to the hospital. Patient has had a recent hospital stay for chest pain 2 weeks ago. (Myles Pagan) - Related Data Home Medications Medication Instructions Recorded Confirmed Atorvastatin [Lipitor] 40 mg PO HS 07/28/17 01/16/18 Clopidogrel [Plavix] 75 mg PO DAILY 07/28/17 01/16/18 Baclofen 10 mg PO TID 12/30/17 01/16/18 LORazepam [Ativan] 0.5 mg PO Q8H 12/30/17 01/16/18 Previous Rx's Medication Instructions Recorded Aspirin 81 mg PO DAILY chew 08/22/17 Nitroglycerin Sl Tabs [Nitrostat] 0.4 mg SUBLINGUAL Q5M PRN #20 tab 09/05/17 Acetaminophen Tab [Tylenol] 500 mg PO Q6HR PRN tab 12/31/17 Allergies Allergy/AdvReac Type Severity Reaction Status Date / Time adhesive tape Allergy SKIN TEAR Verified 01/16/18 23:16 Review of Systems ROS Other: All systems not noted in ROS Statement are negative. <Myles Pagan - Last Filed: 01/17/18 00:53> ROS Other: All systems not noted in ROS Statement are negative. <Cecilia Johnston - Last Filed: 01/17/18 03:17> ROS Statement: Those systems with pertinent positive or pertinent negative responses have been documented in the HPI. EKG Findings - EKG Comments: EKG Findings:: EKG performed at 23:07 sinus bradycardia with left bundle, rate of 59 UT 180 QRS 138 QT/QTC 470/465 EKG compared to 12/30/2017 which no acute changes <EjMyles M - Last Filed: 01/17/18 00:53> Past Medical History Past Medical History: Coronary Artery Disease (CAD), Chest Pain / Angina, CVA/ TIA, GERD/Reflux, Hyperlipidemia, Hypertension, Myocardial Infarction (GA), Osteoarthritis (OA) Additional Past Medical History / Comment(s): Degenerative disc disease , syncope, chornic back pain Last Myocardial Infarction Date:: 09-14 History of Any Multi-Drug Resistant Organisms: None Reported Past Surgical History: Heart Catheterization With Stent, Joint Replacement, Orthopedic Surgery Additional Past Surgical History / Comment(s): Ectopic , loop monitor, 3 stents, Total hip B/L Past Anesthesia/Blood Transfusion Reactions: No Reported Reaction Additional Past Anesthesia/Blood Transfusion Reaction / Comment(s): after hip replacement last time had very slow pulse Date of Last Stent Placement:: 05/2017 Past Psychological History: Anxiety Smoking Status: Former smoker Past Alcohol Use History: None Reported Past Drug Use History: None Reported - Past Family History Mother Family Medical History: Cancer, Hypertension Additional Family Medical History / Comment(s): Bone,blood,pancreatic CA Father Family Medical History: Hypertension, Thyroid Disorder Additional Family Medical History / Comment(s): Small Cell Carcoma CA <Myles Pagan M - Last Filed: 01/17/18 00:53> General Exam Limitations: no limitations General appearance: alert, in no apparent distress Head exam: Present: atraumatic, normocephalic, normal inspection Eye exam: Present: normal appearance, PERRL, EOMI. Absent: scleral icterus, conjunctival injection, periorbital swelling ENT exam: Present: normal exam, normal oropharynx, mucous membranes moist Neck exam: Present: normal inspection, full ROM. Absent: tenderness, meningismus, lymphadenopathy Respiratory exam: Present: normal lung sounds bilaterally. Absent: respiratory distress, wheezes, rales, rhonchi, stridor Cardiovascular Exam: Present: regular rate, normal rhythm, normal heart sounds. Absent: systolic murmur, diastolic murmur, rubs, gallop, clicks GI/Abdominal exam: Present: soft, normal bowel sounds. Absent: distended, tenderness, guarding, rebound, rigid Neurological exam: Present: alert, oriented X3, CN II-XII intact Skin exam: Present: warm, dry, intact, normal color. Absent: rash <Myles Pagan - Last Filed: 01/17/18 00:53> Vital Signs 01/16/18 01/16/18 01/17/18 22:58 23:03 00:03 Temperature 97.7 F Pulse Rate 65 50 L Respiratory 20 20 18 Rate Blood Pressure 138/63 133/70 O2 Sat by Pulse 97 95 Oximetry 01/17/18 01/17/18 01:00 01:21 Temperature 97.4 F L Pulse Rate 50 L 60 Respiratory 18 18 Rate Blood Pressure 129/72 140/79 O2 Sat by Pulse 95 96 Oximetry Chest Pain MDM <Myles Pagan - Last Filed: 01/17/18 00:53> <Cecilia Johnston - Last Filed: 01/17/18 03:17> - MDM 62-year-old female presents emergency Department with chest pain that has been present for 3 days. Patient had lab work, EKG chest x-ray which is all unremarkable at this time. There is no acute changes were EKG. Patient has a history of coronary artery disease though she has had extensive workup in the past and recently with no acute findings. Patient has negative troponin at this time after chest pain has been present for 3 days. Patient will follow-up with her battery stacker tomorrow. We did discuss return parameters and all questions were answered rest my knowledge at this time. Patient agrees to plan of discharge. (Myles Pagan) I was available for consultation in the emergency department. The history and physical exam were done by the midlevel provider. I was consulted for this patient's care. I reviewed the case with the midlevel provider and based on their presentation of the patient, I agree with the assessment, medical decision making and plan of care as documented. (Cecilia Johnston) Disposition Is patient prescribed a controlled substance at d/c from ED?: No Time of Disposition: 00:54 <Myles Pagan - Last Filed: 01/17/18 00:53> <Cecilia Johnston P - Last Filed: 01/17/18 03:17> Clinical Impression: Chest pain Disposition: HOME SELF-CARE Condition: Stable Instructions: Chest Pain (ED) Additional Instructions: Please return to the Emergency Department if symptoms worsen or any other concerns. Referrals: Pinky Gilbert MD [Primary Care Provider] - 1-2 days Rhett Granados MD [STAFF PHYSICIAN] - 1-2 days
[2018-01-17 01:20] VITALS: RESP 18
[2018-01-17 01:23] VITALS: BP 140/79; PULSE 60; TEMP 97.4
== END 2018-01-17 01:23 | disposition home or self-care (01) ==
LOC: SUPCPDRO 22:49 → EC 22:49
DX: R07.89 Other chest pain (principal); E78.5 Hyperlipidemia, unspecified; I10 Essential (primary) hypertension; I25.10 Atherosclerotic heart disease of native coronary artery without angina pectoris; G89.29 Other chronic pain; I25.2 Old myocardial infarction; Z87.891 Personal history of nicotine dependence; Z91.048 Other nonmedicinal substance allergy status; Z79.02 Long term (current) use of antithrombotics/antiplatelets; Z79.899 Other long term (current) drug therapy; Z95.5 Presence of coronary angioplasty implant and graft; Z86.73 Personal history of transient ischemic attack (TIA), and cerebral infarction without residual deficits; Z82.49 Family history of ischemic heart disease and other diseases of the circulatory system
CPT/HCPCS: 36415; 71046; 80053; 82550; 82553; 83735; 84484; 85025; 85610; 85730; 93005; 99285

== ENCOUNTER → 2018-02-13 | Outpatient (CLI) | payer MEDICARE ==
--- NOTE | 2018-02-13 08:02 | US ---
EXAMINATION TYPE: US abdomen complete DATE OF EXAM: 02/13/2018 COMPARISON: NONE CLINICAL HISTORY: R10.11 Right upper quadrant pain. EXAM MEASUREMENTS: Liver Length: 15.6 cm Gallbladder Wall: 0.2 cm CBD: 0.3 cm Spleen: 9.6 cm Right Kidney: 8.8 x 4.2 x 4.3 cm Left Kidney: 9.5 x 5.8 x 4.7 cm Exam limitations due to increased bowel gas. Pancreas: Obscured by bowel gas Liver: There is increased and coarsened echogenicity of the hepatic parenchyma with diminished visua lization of the portal triads most commonly relating to hepatic steatosis and limiting evaluation for underlying hepatic masses. Gallbladder: few scattered probable polyps as these foci are nonshadowing and some are adherent to b e gallbladder wall. There are at least 3 with the largest measuring 4 mm. Alternatively these could r epresent very small calculi. Evidence for sonographic Tillman's sign: no CBD: wnl Spleen: wnl Right Kidney: wnl Left Kidney: wnl Upper IVC: wnl Abd Aorta: some limitations, wnl as seen The intrahepatic portion of the IVC and proximal abdominal aorta are within normal limits. Common gentry e duct is unremarkable. The spleen is unremarkable. Kidneys are symmetric and free of hydronephrosis . No renal lesions are seen. IMPRESSION: 1. Multiple probable subcentimeter gallbladder polyps. Polyps of the size annual surveillance is dwaine mmended. No sonographic evidence of acute cholecystitis. 2. Sonographic findings most commonly related to hepatic steatosis. Correlate with liver function chad ts.
== END ==
LOC: RADUSWWP 07:18
PROVIDERS: ATTEND Internal Medicine
DX: K76.0 Fatty (change of) liver, not elsewhere classified (principal)
CPT/HCPCS: 76700

== ENCOUNTER 2018-02-18 01:31 | Observation (INO) | payer MEDICARE ==
[2018-02-18] MEDS ORDERED: SODIUM CHLORIDE 0.9% 500 ML 500 ML IV STA (01:56)
--- NOTE | 2018-02-18 02:05 | ED ---
Arrhythmia/Palpitations HPI - General Source: patient Mode of arrival: ambulatory Limitations: no limitations <Adeline Joseph - Last Filed: 02/18/18 04:16> <Cecilia Johnston - Last Filed: 02/18/18 07:19> - General Chief Complaint: Arrhythmia/Palpitations Stated Complaint: Heart Palpitations Time Seen by Provider: 02/18/18 01:45 - History of Present Illness Initial Comments: 62-year-old female patient presents to the emergency department today for evaluation of palpitations, dizziness, nausea, and sweats. Patient states that she started having problems this afternoon around 2 PM. Patient states that symptoms did resolve and then started again around 11:30 this evening when she fell she should come in for evaluation. Patient states that she does have a history of similar symptoms quite frequently. Patient does have a loop monitor implanted. Patient states she did have some mild chest pain earlier today to the left side of her chest. She denies any radiation of the pain to her back. States she has been nauseated but has not vomited. States that she has had intermittent sweats. States that she feels like her heart is skipping beats. She is reporting dizziness especially with standing. Patient denies any recent rash, fever, chills, abdominal pain, diarrhea, constipation, back pain, numbness , tingling, hematuria, dysuria, urinary urgency, urinary frequency, headache, visual changes, or any other complaints. (Adeline Joseph) - Related Data Home Medications Medication Instructions Recorded Confirmed Atorvastatin [Lipitor] 40 mg PO HS 07/28/17 02/18/18 Clopidogrel [Plavix] 75 mg PO DAILY 07/28/17 02/18/18 Baclofen 10 mg PO TID 12/30/17 02/18/18 LORazepam [Ativan] 0.5 mg PO Q8H 12/30/17 02/18/18 Previous Rx's Medication Instructions Recorded Aspirin 81 mg PO DAILY chew 08/22/17 Allergies Allergy/AdvReac Type Severity Reaction Status Date / Time adhesive tape Allergy SKIN TEAR Verified 02/18/18 04:42 Review of Systems ROS Other: All systems not noted in ROS Statement are negative. <Adeline Joseph - Last Filed: 02/18/18 04:16> ROS Other: All systems not noted in ROS Statement are negative. <Cecilia Johnston - Last Filed: 02/18/18 07:19> ROS Statement: Those systems with pertinent positive or pertinent negative responses have been documented in the HPI. Past Medical History Past Medical History: Coronary Artery Disease (CAD), Chest Pain / Angina, CVA/ TIA, GERD/Reflux, Hyperlipidemia, Hypertension, Myocardial Infarction ([place]), Osteoarthritis (OA) Additional Past Medical History / Comment(s): Degenerative disc disease , syncope, chornic back pain Last Myocardial Infarction Date:: 5- History of Any Multi-Drug Resistant Organisms: None Reported Past Surgical History: Heart Catheterization With Stent, Joint Replacement, Orthopedic Surgery Additional Past Surgical History / Comment(s): Ectopic , loop monitor, 3 stents, Total hip B/L Past Anesthesia/Blood Transfusion Reactions: No Reported Reaction Additional Past Anesthesia/Blood Transfusion Reaction / Comment(s): after hip replacement last time had very slow pulse Date of Last Stent Placement:: 05/2017 Past Psychological History: Anxiety Smoking Status: Former smoker Past Alcohol Use History: None Reported Past Drug Use History: None Reported - Past Family History Mother Family Medical History: Cancer, Hypertension Additional Family Medical History / Comment(s): Bone,blood,pancreatic CA Father Family Medical History: Hypertension, Thyroid Disorder Additional Family Medical History / Comment(s): Small Cell Carcoma CA <Adeline Joseph M - Last Filed: 02/18/18 04:16> General Exam Limitations: no limitations General appearance: alert, in no apparent distress, other (This is a well- developed, well-nourished adult female patient in no acute distress. Vital signs upon presentation are temperature 97.7F, pulse 70, respirations 20, blood pressure 159/75, pulse ox 97% on room air.) Eye exam: Present: normal appearance, PERRL, EOMI. Absent: scleral icterus, conjunctival injection, periorbital swelling ENT exam: Present: normal exam, normal oropharynx, mucous membranes moist Respiratory exam: Present: normal lung sounds bilaterally. Absent: respiratory distress, wheezes, rales, rhonchi, stridor Cardiovascular Exam: Present: regular rate, normal rhythm, normal heart sounds. Absent: systolic murmur, diastolic murmur, rubs, gallop, clicks GI/Abdominal exam: Present: soft, normal bowel sounds. Absent: distended, tenderness, guarding, rebound, rigid Neurological exam: Present: alert, oriented X3, CN II-XII intact, other ( Strength in all 4 extremities is 5/5.) Psychiatric exam: Present: normal affect, normal mood Skin exam: Present: warm, dry, intact, normal color. Absent: rash <Adeline Joseph - Last Filed: 02/18/18 04:16> Vital Signs 02/18/18 02/18/18 02/18/18 01:34 01:52 02:00 Temperature 97.7 F Pulse Rate 70 48 L Respiratory 20 10 L Rate Blood Pressure 159/75 169/101 O2 Sat by Pulse 97 98 94 L Oximetry 02/18/18 02/18/18 02:30 03:00 Temperature Pulse Rate 48 L 46 L Respiratory 7 L 10 L Rate Blood Pressure 155/82 149/88 O2 Sat by Pulse 94 L 97 Oximetry EKG Findings - EKG Comments: EKG Findings:: EKG obtained at 0248 shows sinus bradycardia with a left bundle branch block. Ventricular rate is 49, [place] interval 170, QRS duration 136, QTc 500, QTC 451. No evidence of ST elevation or depression. Did review previous EKGs, changes appear chronic. <Adeline Joseph - Last Filed: 02/18/18 04:16> Medical Decision Making - Lab Data Result diagrams: 02/18/18 02:05 02/18/18 02:05 - Radiology Data Radiology results: report reviewed, image reviewed <Adeline oJseph - Last Filed: 02/18/18 04:16> - Lab Data Result diagrams: 02/18/18 02:05 02/18/18 02:05 <Cecilia Johnston - Last Filed: 02/18/18 07:19> - Medical Decision Making 62-year-old female patient presents to the emergency department today with complaints of palpitations and dizziness. Patient states she had several episodes throughout the day and symptoms worsen around 11:30 PM. Physical examination is unremarkable. Labs reviewed and were unremarkable. EKG showed sinus bradycardia with a left bundle branch block which is not changed from previous. I did discuss findings and results with the patient. She did not feel comfortable being discharged home. We will admit for observation with cardiology consult in the morning. (Adeline Joseph) I was available for consultation in the emergency department. The history and physical exam were done by the midlevel provider. I was consulted for this patient's care. I reviewed the case with the midlevel provider and based on their presentation of the patient, I agree with the assessment, medical decision making and plan of care as documented. (Cecilia Johnston) - Lab Data Lab Results 02/18/18 02/18/18 02/18/18 Range/Units 02:05 02:05 02:05 WBC 6.3 (3.8-10.6) k/uL RBC 4.50 (3.80-5.40) m/uL Hgb 13.3 (11.4-16.0) gm/dL Hct 39.6 (34.0-46.0) % MCV 88.1 (80.0-100.0) fL MCH 29.5 (25.0-35.0) pg MCHC 33.5 (31.0-37.0) g/dL RDW 13.3 (11.5-15.5) % Plt Count 262 (150-450) k/uL Neutrophils % 50 % Lymphocytes % 38 % Monocytes % 5 % Eosinophils % 3 % Basophils % 1 % Neutrophils # 3.2 (1.3-7.7) k/uL Lymphocytes # 2.4 (1.0-4.8) k/uL Monocytes # 0.3 (0-1.0) k/uL Eosinophils # 0.2 (0-0.7) k/uL Basophils # 0.0 (0-0.2) k/uL PT (9.0-12.0) sec INR (<1.2) APTT (22.0-30.0) sec Sodium 139 (137-145) mmol/L Potassium 4.0 (3.5-5.1) mmol/L Chloride 103 (98-107) mmol/L Carbon Dioxide 27 (22-30) mmol/L Anion Gap 9 mmol/L BUN 13 (7-17) mg/dL Creatinine 0.82 (0.52-1.04) mg/dL Est GFR (CKD-EPI)AfAm >90 (>60 ml/min/1.73 sqM) Est GFR (CKD-EPI)NonAf 78 (>60 ml/min/1.73 sqM) Glucose 104 H (74-99) mg/dL Calcium 9.9 (8.4-10.2) mg/dL Magnesium 1.9 (1.6-2.3) mg/dL Total Bilirubin 0.7 (0.2-1.3) mg/dL AST 29 (14-36) U/L ALT 43 (9-52) U/L Alkaline Phosphatase 106 (38-126) U/L Total Creatine Kinase 45 (30-135) U/L CK-MB (CK-2) 0.6 (0.0-2.4) ng/mL CK-MB (CK-2) Rel Index 1.3 Troponin I <0.012 (0.000-0.034) ng/mL Total Protein 7.4 (6.3-8.2) g/dL Albumin 4.3 (3.5-5.0) g/dL 02/18/18 Range/Units 02:05 WBC (3.8-10.6) k/uL RBC (3.80-5.40) m/uL Hgb (11.4-16.0) gm/dL Hct (34.0-46.0) % MCV (80.0-100.0) fL MCH (25.0-35.0) pg MCHC (31.0-37.0) g/dL RDW (11.5-15.5) % Plt Count (150-450) k/uL Neutrophils % % Lymphocytes % % Monocytes % % Eosinophils % % Basophils % % Neutrophils # (1.3-7.7) k/uL Lymphocytes # (1.0-4.8) k/uL Monocytes # (0-1.0) k/uL Eosinophils # (0-0.7) k/uL Basophils # (0-0.2) k/uL PT 10.2 (9.0-12.0) sec INR 1.0 (<1.2) APTT 25.5 (22.0-30.0) sec Sodium (137-145) mmol/L Potassium (3.5-5.1) mmol/L Chloride (98-107) mmol/L Carbon Dioxide (22-30) mmol/L Anion Gap mmol/L BUN (7-17) mg/dL Creatinine (0.52-1.04) mg/dL Est GFR (CKD-EPI)AfAm (>60 ml/min/1.73 sqM) Est GFR (CKD-EPI)NonAf (>60 ml/min/1.73 sqM) Glucose (74-99) mg/dL Calcium (8.4-10.2) mg/dL Magnesium (1.6-2.3) mg/dL Total Bilirubin (0.2-1.3) mg/dL AST (14-36) U/L ALT (9-52) U/L Alkaline Phosphatase (38-126) U/L Total Creatine Kinase (30-135) U/L CK-MB (CK-2) (0.0-2.4) ng/mL CK-MB (CK-2) Rel Index Troponin I (0.000-0.034) ng/mL Total Protein (6.3-8.2) g/dL Albumin (3.5-5.0) g/dL - Radiology Data Two-view x-ray of the chest is obtained. Heart mediastinum are normal. Lungs are clear. Diaphragm is normal. Bony thorax is intact. Impression by Dr. Colmenares shows normal chest with no change. (Adeline Joseph) Disposition Decision to Admit Reason: Admit from EC Decision Date: 02/18/18 Decision Time: 04:17 <Adeline Joseph - Last Filed: 02/18/18 04:16> <Cecilia Johnston - Last Filed: 02/18/18 07:19> Clinical Impression: Palpitations, Dizziness Disposition: ADMITTED IP TO THIS [facility] Condition: Serious
[2018-02-18 02:14] LABS: Basophils % (A) 1 %; Eosinophils # (A) 0.2 k/uL (0-0.7); Eosinophils % (A) 3 %; HCT 39.6 % (34.0-46.0); HGB 13.3 gm/dL (11.4-16.0); Lymphocytes # (A) 2.4 k/uL (1.0-4.8); Lymphocytes % (A) 38 %; MCH 29.5 pg (25.0-35.0); MCHC 33.5 g/dL (31.0-37.0); MCV 88.1 fL (80.0-100.0); Mean Platelet Volume 7.1; Monocytes # (A) 0.3 k/uL (0-1.0); Monocytes % (A) 5 %; Neutrophils # (A) 3.2 k/uL (1.3-7.7); Neutrophils % (A) 50 %; Platelet Count 262 k/uL (150-450); RDW 13.3 % (11.5-15.5); WBC 6.3 k/uL (3.8-10.6)
--- NOTE | 2018-02-18 02:20 | XR ---
EXAMINATION TYPE: XR chest 2V DATE OF EXAM: 02/18/2018 COMPARISON: 01/16/2018 HISTORY: Irregular heart rate TECHNIQUE: Frontal and lateral views of the chest are obtained. FINDINGS: Heart and mediastinum are normal. Lungs are clear. Diaphragm is normal. Bony thorax is int act. IMPRESSION: Normal chest. No change.
[2018-02-18 02:24] LABS: ALT 43 U/L (9-52); AST 29 U/L (14-36); Albumin 4.3 g/dL (3.5-5.0); Alkaline Phosphatase 106 U/L (38-126); Anion Gap 9 mmol/L; Blood Urea Nitrogen 13 mg/dL (7-17); Calcium 9.9 mg/dL (8.4-10.2); Carbon Dioxide 27 mmol/L (22-30); Chloride 103 mmol/L (98-107); Glucose 104 mg/dL (74-99); Magnesium 1.9 mg/dL (1.6-2.3); Sodium 139 mmol/L (137-145); Total Bilirubin 0.7 mg/dL (0.2-1.3); Total Protein 7.4 g/dL (6.3-8.2)
[2018-02-18 02:27] LABS: Partial Thromboplastin Time 25.5 sec (22.0-30.0); Prothrombin Time 10.2 sec (9.0-12.0)
[2018-02-18 02:33] LABS: Creatine Kinase 45 U/L (30-135)
[2018-02-18 02:46] LABS: Creatine Kinase MB 0.6 ng/mL (0.0-2.4); Troponin I <0.012 ng/mL (0.000-0.034)
[2018-02-18] MEDS ORDERED: NALOXONE 0.4 MG/ML 1 ML VIAL IV PRN (04:11)
[2018-02-18 05:07] VITALS: BMI 24.7
[2018-02-18] MEDS ORDERED: FLUTICASONE 50MCG/SPRAY NASAL 16GM EA NOSTRIL PRN (05:09)
[2018-02-18] MEDS: LORazepam 0.5 MG TAB PO SCH ×3 (05:16→20:09)
[2018-02-18] MEDS: CLOPIDOGREL 75 MG TAB PO SCH (08:16)
[2018-02-18] MEDS: BACLOFEN 10 MG TAB PO SCH ×3 (08:16→20:09)
[2018-02-18] MEDS: ASPIRIN 81 MG PO SCH (08:16)
--- NOTE | 2018-02-18 08:48 | P.CRDCN ---
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 The patient does have history of coronary artery disease and prior stenting, hypertension, and dyslipidemia. She did have multiple hospital admissions with palpitations. Finally she ended having a loop recorder. She presented to the hospital again with palpitation. She ate her dinner yesterday and after that she started having palpitations in the chest. No chest pain. No dizziness or lightheadedness. No syncope. No fever or chills. The EKG showed sinus rhythm. One set of cardiac enzymes came in to be unremarkable. The patient did not have anymore episodes of palpitation throughout the night. Hemodynamically she has been maintaining a heart rate in the 50s. Past Medical History Past Medical History: Coronary Artery Disease (CAD), Chest Pain / Angina, CVA/ TIA, GERD/Reflux, Hyperlipidemia, Hypertension, Myocardial Infarction ([place]), Osteoarthritis (OA) Additional Past Medical History / Comment(s): Degenerative disc disease , syncope, chornic back pain Last Myocardial Infarction Date:: 09-14 History of Any Multi-Drug Resistant Organisms: None Reported Past Surgical History: Heart Catheterization With Stent, Joint Replacement, Orthopedic Surgery Additional Past Surgical History / Comment(s): Ectopic , loop monitor, 3 stents, Total hip B/L Past Anesthesia/Blood Transfusion Reactions: No Reported Reaction Additional Past Anesthesia/Blood Transfusion Reaction / Comment(s): after hip replacement last time had very slow pulse Date of Last Stent Placement:: 05/2017 Smoking Status: Former smoker - Past Family History Mother Family Medical History: Cancer, Hypertension Additional Family Medical History / Comment(s): Bone,blood,pancreatic CA Father Family Medical History: Hypertension, Thyroid Disorder Additional Family Medical History / Comment(s): Small Cell Carcoma CA Medications and Allergies Home Medications Medication Instructions Recorded Confirmed Type Atorvastatin [Lipitor] 40 mg PO HS 07/28/17 02/18/18 History Clopidogrel [Plavix] 75 mg PO DAILY 07/28/17 02/18/18 History Aspirin 81 mg PO DAILY chew 08/22/17 02/18/18 Rx Baclofen 10 mg PO TID 12/30/17 02/18/18 History LORazepam [Ativan] 0.5 mg PO Q8H 12/30/17 02/18/18 History Allergies Allergy/AdvReac Type Severity Reaction Status Date / Time adhesive tape Allergy SKIN TEAR Verified 02/18/18 04:42 Physical Exam Vitals: Vital Signs Temp Pulse Pulse Resp BP BP Pulse Ox 02/18/18 08:23 97.7 F 56 L 16 142/83 02/18/18 05:55 16 02/18/18 04:54 97.8 F 75 16 179/99 100 02/18/18 03:00 46 L 10 L 149/88 97 02/18/18 02:30 48 L 7 L 155/82 94 L 02/18/18 02:00 48 L 10 L 169/101 94 L 02/18/18 01:52 98 02/18/18 01:34 97.7 F 70 20 159/75 97 Intake and Output 02/17/18 02/18/18 02/18/18 22:59 06:59 14:59 Other: # Voids 1 Weight 65.3 kg - Constitutional General appearance: no acute distress - Respiratory Respiratory: bilateral: CTA - Cardiovascular Rhythm: regular Heart sounds: normal: S1, S2 Results 02/18/18 02:05 02/18/18 02:05 Cardiac Enzymes 02/18/18 02/18/18 Range/Units 02:05 02:05 AST 29 (14-36) U/L CK-MB (CK-2) 0.6 (0.0-2.4) ng/mL Troponin I <0.012 (0.000-0.034) ng/mL Coagulation 02/18/18 Range/Units 02:05 PT 10.2 (9.0-12.0) sec APTT 25.5 (22.0-30.0) sec CBC 02/18/18 Range/Units 02:05 WBC 6.3 (3.8-10.6) k/uL RBC 4.50 (3.80-5.40) m/uL Hgb 13.3 (11.4-16.0) gm/dL Hct 39.6 (34.0-46.0) % Plt Count 262 (150-450) k/uL Comprehensive Metabolic Panel 02/18/18 Range/Units 02:05 Sodium 139 (137-145) mmol/L Potassium 4.0 (3.5-5.1) mmol/L Chloride 103 (98-107) mmol/L Carbon Dioxide 27 (22-30) mmol/L BUN 13 (7-17) mg/dL Creatinine 0.82 (0.52-1.04) mg/dL Glucose 104 H (74-99) mg/dL Calcium 9.9 (8.4-10.2) mg/dL AST 29 (14-36) U/L ALT 43 (9-52) U/L Alkaline Phosphatase 106 (38-126) U/L Total Protein 7.4 (6.3-8.2) g/dL Albumin 4.3 (3.5-5.0) g/dL Current Medications Generic Name Dose Route Start Last Admin Trade Name Freq PRN Reason Stop Dose Admin Aspirin 81 mg 02/18/18 09:00 02/18/18 08:16 Aspirin PO 81 mg DAILY DORIS Administration Atorvastatin Calcium 40 mg 02/18/18 21:00 Lipitor PO HS DORIS Baclofen 10 mg 02/18/18 09:00 02/18/18 08:16 Lioresal PO 10 mg TID DORIS Administration Clopidogrel Bisulfate 75 mg 02/18/18 09:00 02/18/18 08:16 Plavix PO 75 mg DAILY DORIS Administration Fluticasone Propionate 2 spray 02/18/18 05:09 02/18/18 08:16 Flonase Nasal [place] EA NOSTRIL 2 spray DAILY PRN Administration Allergy Symptoms Lorazepam 0.5 mg 02/18/18 04:15 02/18/18 05:16 Ativan PO 0.5 mg Q8H DORIS Administration Naloxone HCl 0.2 mg 02/18/18 04:11 Narcan IV Q2M PRN Opioid Reversal Intake and Output 02/17/18 02/18/18 02/18/18 22:59 06:59 14:59 Other: # Voids 1 Weight 65.3 kg 02/18/18 02:05 02/18/18 02:05 Assessment and Plan Assessment: Assessment #1 intermittent episodes of palpitations #2 known CAD and prior revascularization #3 possible anxiety Plan #1 acute coronary syndrome to be ruled out. We'll follow-up with the serial cardiac enzymes #2 if the cardiac enzymes came in to be unremarkable the patient possibly can be discharged home #3 she does have a loop recorder was inserted about 6 months ago. Thank you for allowing us participate in her care
[2018-02-18] MEDS ORDERED: ATORVASTATIN 40 MG TAB PO SCH (21:00)
[2018-02-19] MEDS: LORazepam 0.5 MG TAB PO SCH ×2 (04:00→12:17)
[2018-02-19] MEDS: BACLOFEN 10 MG TAB PO SCH (05:11)
[2018-02-19 07:29] VITALS: RESP 16
[2018-02-19] MEDS: ASPIRIN 81 MG PO SCH (07:29)
[2018-02-19] MEDS: CLOPIDOGREL 75 MG TAB PO SCH (07:29)
[2018-02-19 07:41] LABS: Basophils # (A) 0.1 k/uL (0-0.2); Basophils % (A) 1 %; Eosinophils # (A) 0.2 k/uL (0-0.7); Eosinophils % (A) 3 %; HCT 41.3 % (34.0-46.0); HGB 13.2 gm/dL (11.4-16.0); Lymphocytes # (A) 1.6 k/uL (1.0-4.8); Lymphocytes % (A) 30 %; MCV 90.5 fL (80.0-100.0); Monocytes # (A) 0.3 k/uL (0-1.0); Monocytes % (A) 6 %; Neutrophils # (A) 3.1 k/uL (1.3-7.7); Neutrophils % (A) 58 %; Platelet Count 267 k/uL (150-450); RBC 4.56 m/uL (3.80-5.40); RDW 13.4 % (11.5-15.5); WBC 5.2 k/uL (3.8-10.6)
[2018-02-19 07:56] LABS: Anion Gap 9 mmol/L; Blood Urea Nitrogen 12 mg/dL (7-17); Calcium 9.6 mg/dL (8.4-10.2); Carbon Dioxide 27 mmol/L (22-30); Chloride 107 mmol/L (98-107); Glucose 92 mg/dL (74-99); Potassium 4.5 mmol/L (3.5-5.1); Sodium 143 mmol/L (137-145)
[2018-02-19 12:18] VITALS: BP 150/93; PULSE 68; TEMP 98.4
--- NOTE | 2018-02-19 12:43 | P.HPIM ---
History of Present Illness H&P Date: 02/18/18 Chief Complaint: Heart palpitations 62-year-old female patient presents to the emergency department today for evaluation of palpitations, dizziness, nausea, and sweats. Patient states that she started having problems this afternoon around 2 PM. Patient states that symptoms did resolve and then started again around 11:30 this evening when she fell she should come in for evaluation. Patient states that she does have a history of similar symptoms quite frequently. Patient does have a loop monitor implanted. Patient states she did have some mild chest pain earlier today to the left side of her chest. She denies any radiation of the pain to her back. States she has been nauseated but has not vomited. States that she has had intermittent sweats. States that she feels like her heart is skipping beats. She is reporting dizziness especially with standing. Patient denies any recent rash, fever, chills, abdominal pain, diarrhea, constipation, back pain, numbness , tingling, hematuria, dysuria, urinary urgency, urinary frequency, headache, visual changes, or any other complaints. Review of Systems Constitutional: Reports fatigue, Denies chills, Denies fever Eyes: denies blurred vision, denies diplopia, denies photophobia Ears, nose, mouth and throat: Denies epistaxis, Denies headache, Denies vertigo Cardiovascular: Reports palpitations, Denies chest pain, Denies dyspnea on exertion, Denies irregular heart beat, Denies leg edema, Denies rapid heart beat Respiratory: Denies cough, Denies wheezing Gastrointestinal: Denies abdominal pain, Denies nausea, Denies vomiting Musculoskeletal: Denies frequent falls, Denies leg numbness/tingling, Denies myalgias Neurological: Denies change in mentation, Denies numbness, Denies tingling, Denies visual changes Psychiatric: Denies confusion Endocrine: Denies cold intolerance, Denies excessive thirst, Denies heat intolerance Hematologic/Lymphatic: Denies easy bruising, Denies lymphadenopathy Past Medical History Past Medical History: Coronary Artery Disease (CAD), Chest Pain / Angina, CVA/ TIA, GERD/Reflux, Hyperlipidemia, Hypertension, Myocardial Infarction ([place]), Osteoarthritis (OA) Additional Past Medical History / Comment(s): Degenerative disc disease , syncope, chornic back pain Last Myocardial Infarction Date:: 517 History of Any Multi-Drug Resistant Organisms: None Reported Past Surgical History: Heart Catheterization With Stent, Joint Replacement, Orthopedic Surgery Additional Past Surgical History / Comment(s): Ectopic , loop monitor, 3 stents, Total hip B/L Past Anesthesia/Blood Transfusion Reactions: No Reported Reaction Additional Past Anesthesia/Blood Transfusion Reaction / Comment(s): after hip replacement last time had very slow pulse Date of Last Stent Placement:: 05/2017 Smoking Status: Former smoker - Past Family History Mother Family Medical History: Cancer, Hypertension Additional Family Medical History / Comment(s): Bone,blood,pancreatic CA Father Family Medical History: Hypertension, Thyroid Disorder Additional Family Medical History / Comment(s): Small Cell Carcoma CA Medications and Allergies Home Medications Medication Instructions Recorded Confirmed Type Atorvastatin [Lipitor] 40 mg PO HS 07/28/17 02/18/18 History Clopidogrel [Plavix] 75 mg PO DAILY 07/28/17 02/18/18 History Aspirin 81 mg PO DAILY chew 08/22/17 02/18/18 Rx Baclofen 10 mg PO TID 12/30/17 02/18/18 History LORazepam [Ativan] 0.5 mg PO Q8H 12/30/17 02/18/18 History Allergies Allergy/AdvReac Type Severity Reaction Status Date / Time adhesive tape Allergy SKIN TEAR Verified 02/18/18 09:07 Physical Exam Vitals: Vital Signs Temp Pulse Pulse Resp BP BP Pulse Ox 02/18/18 11:42 97.9 F 55 L 18 124/77 97 02/18/18 08:23 97.7 F 56 L 16 142/83 02/18/18 05:55 16 02/18/18 04:54 97.8 F 75 16 179/99 100 02/18/18 03:00 46 L 10 L 149/88 97 02/18/18 02:30 48 L 7 L 155/82 94 L 02/18/18 02:00 48 L 10 L 169/101 94 L 02/18/18 01:52 98 02/18/18 01:34 97.7 F 70 20 159/75 97 Intake and Output 02/17/18 02/18/18 02/18/18 22:59 06:59 14:59 Intake Total 240 Balance 240 Intake: Oral 240 Other: Voiding Method Toilet # Voids 1 Weight 65.3 kg General appearance: alert, in no apparent distress, other (This is a well- developed, well-nourished adult female patient in no acute distress. Vital signs upon presentation are temperature 97.7F, pulse 70, respirations 20, blood pressure 159/75, pulse ox 97% on room air.) Eye exam: Present: normal appearance, PERRL, EOMI. Absent: scleral icterus, conjunctival injection, periorbital swelling ENT exam: Present: normal exam, normal oropharynx, mucous membranes moist Respiratory exam: Present: normal lung sounds bilaterally. Absent: respiratory distress, wheezes, rales, rhonchi, stridor Cardiovascular Exam: Present: regular rate, normal rhythm, normal heart sounds. Absent: systolic murmur, diastolic murmur, rubs, gallop, clicks GI/Abdominal exam: Present: soft, normal bowel sounds. Absent: distended, tenderness, guarding, rebound, rigid Neurological exam: Present: alert, oriented X3, CN II-XII intact, other ( Strength in all 4 extremities is 5/5.) Psychiatric exam: Present: normal affect, normal mood Skin exam: Present: warm, dry, intact, normal color. Absent: rash Results CBC & Chem 7: 02/19/18 07:23 02/19/18 07:23 Labs: Abnormal Lab Results - Last 24 Hours (Table) 02/18/18 Range/Units 02:05 Glucose 104 H (74-99) mg/dL Thrombosis Risk Factor Assmnt - Choose All That Apply Each Factor Represents 1 point: Age 41-60 years Thrombosis Risk Factor Assessment Total Risk Factor Score: 1 Thrombosis Risk Factor Assessment Level: Low Risk Assessment and Plan Assessment: Assessment 1. intermittent episodes of palpitations 2. known CAD and prior revascularization 3. possible anxiety Plan #1 acute coronary syndrome to be ruled out. We'll follow-up with the serial cardiac enzymes #2 if the cardiac enzymes came in to be unremarkable the patient possibly can be discharged home #3 she does have a loop recorder that was inserted about 6 months ago.
--- NOTE | 2018-02-19 14:12 | P.DS ---
Providers Date of admission: 02/18/18 04:20 Expected date of discharge: 02/19/18 Attending physician: Danial Tsai MD Consults: 02/18/18 04:14 Consult Physician Routine Consulting Provider: [facility] Consult Reason/Comments: Palpitations; Dizziness Do you want consulting provider notified?: Yes Primary care physician: Pinky [facility] Course: 62-year-old female patient presents to the emergency department today for evaluation of palpitations, dizziness, nausea, and sweats. Patient states that she started having problems this afternoon around 2 PM. Patient states that symptoms did resolve and then started again around 11:30 this evening when she fell she should come in for evaluation. Patient states that she does have a history of similar symptoms quite frequently. Patient does have a loop monitor implanted. Patient states she did have some mild chest pain earlier today to the left side of her chest. She denies any radiation of the pain to her back. States she has been nauseated but has not vomited. States that she has had intermittent sweats. States that she feels like her heart is skipping beats. She is reporting dizziness especially with standing. Patient denies any recent rash, fever, chills, abdominal pain, diarrhea, constipation, back pain, numbness , tingling, hematuria, dysuria, urinary urgency, urinary frequency, headache, visual changes, or any other complaints. Patient was admitted to the hospital and troponin and EKG was monitored closely ; cardiology was consulted and recommended patient discharged if all 3 sets of troponin remained negative; she remains stable she didn't have any further complications he wasn't discharged on home medication Patient Condition at Discharge: Serious Plan - Discharge Summary New Discharge Prescriptions: New Fluticasone Nasal [place] [Flonase Nasal [place]] 2 spray EA NOSTRIL DAILY PRN spr PRN Reason: Allergy Symptoms Continue Clopidogrel [Plavix] 75 mg PO DAILY Atorvastatin [Lipitor] 40 mg PO HS Aspirin 81 mg PO DAILY chew LORazepam [Ativan] 0.5 mg PO Q8H Baclofen 10 mg PO TID Discharge Medication List Atorvastatin [Lipitor] 40 mg PO HS 07/28/17 [History] Clopidogrel [Plavix] 75 mg PO DAILY 07/28/17 [History] Aspirin 81 mg PO DAILY chew 08/22/17 [Rx] Baclofen 10 mg PO TID 12/30/17 [History] LORazepam [Ativan] 0.5 mg PO Q8H 12/30/17 [History] Fluticasone Nasal [place] [Flonase Nasal [place]] 2 spray EA NOSTRIL DAILY PRN spr 02/19/18 [Rx] Follow up Appointment(s)/Referral(s): Pinky Gilbert MD [Primary Care Provider] - 1-2 days Discharge Disposition: HOME SELF-CARE
== END 2018-02-19 14:40 | disposition home or self-care (01) ==
LOC: EC 01:31 → 1SOBS 04:20
PROVIDERS: ADMIT Internal Medicine; ATTEND Internal Medicine
DX: R00.2 Palpitations (principal); R42 Dizziness and giddiness; R11.0 Nausea; R61 Generalized hyperhidrosis; R07.9 Chest pain, unspecified; Z95.818 Presence of other cardiac implants and grafts; Z79.02 Long term (current) use of antithrombotics/antiplatelets; Z79.899 Other long term (current) drug therapy; Z79.82 Long term (current) use of aspirin; Z91.048 Other nonmedicinal substance allergy status; I25.10 Atherosclerotic heart disease of native coronary artery without angina pectoris; Z86.73 Personal history of transient ischemic attack (TIA), and cerebral infarction without residual deficits; K21.9 Gastro-esophageal reflux disease without esophagitis; E78.5 Hyperlipidemia, unspecified; I10 Essential (primary) hypertension; I25.2 Old myocardial infarction; M19.90 Unspecified osteoarthritis, unspecified site; G89.29 Other chronic pain; M54.9 Dorsalgia, unspecified; Z95.5 Presence of coronary angioplasty implant and graft; F41.9 Anxiety disorder, unspecified; Z87.891 Personal history of nicotine dependence; Z80.0 Family history of malignant neoplasm of digestive organs; Z80.8 Family history of malignant neoplasm of other organs or systems; Z82.49 Family history of ischemic heart disease and other diseases of the circulatory system; Z83.49 Family history of other endocrine, nutritional and metabolic diseases
CPT/HCPCS: 99285; 36415; 93005; 80053; 80048; 82550; 82553; 83735; 84484; 85025 ×2; 85610; 85730; 71046; G0378 ×2

== ENCOUNTER 2018-03-11 18:59 | Emergency (ER) | payer MEDICARE ==
[2018-03-11] MEDS ORDERED: SODIUM CHLORIDE 0.9% 500 ML 500 ML IV STA (19:05)
[2018-03-11 19:29] LABS: Basophils % (A) 1 %; Eosinophils # (A) 0.2 k/uL (0-0.7); Eosinophils % (A) 3 %; HCT 42.1 % (34.0-46.0); HGB 13.9 gm/dL (11.4-16.0); Lymphocytes # (A) 1.8 k/uL (1.0-4.8); Lymphocytes % (A) 29 %; MCH 29.3 pg (25.0-35.0); MCHC 33.1 g/dL (31.0-37.0); MCV 88.7 fL (80.0-100.0); Mean Platelet Volume 7.1; Monocytes # (A) 0.3 k/uL (0-1.0); Monocytes % (A) 5 %; Neutrophils # (A) 3.8 k/uL (1.3-7.7); Neutrophils % (A) 61 %; Platelet Count 289 k/uL (150-450); RBC 4.74 m/uL (3.80-5.40); RDW 12.9 % (11.5-15.5); WBC 6.2 k/uL (3.8-10.6)
[2018-03-11] MEDS ORDERED: ACETAMINOPHEN TAB 500 MG TAB PO STA (19:32)
--- NOTE | 2018-03-11 19:34 | ED ---
General Adult HPI - General Chief complaint: Arrhythmia/Palpitations Stated complaint: Heart Palpitations, Leg weakness Time Seen by Provider: 03/11/18 19:05 Source: patient, RN notes reviewed, old records reviewed Mode of arrival: ambulatory Limitations: no limitations - History of Present Illness Initial comments: 62-year-old female with history of recurrent palpitations presents for evaluation of palpitations. Patient states her symptoms have been ongoing for the past several days. She reports that they seem to be worsened by eating. This is been typical for this patient in the past. Denies central or radiating chest pain. Denies arm pain or neck pain. She does report a mild headache. Denies focal numbness or weakness. Denies nausea or vomiting. She has known history of CAD with previous stenting. She is currently on Plavix. No abdominal pain. - Related Data Home Medications Medication Instructions Recorded Confirmed Atorvastatin [Lipitor] 40 mg PO HS 07/28/17 03/11/18 Clopidogrel [Plavix] 75 mg PO DAILY 07/28/17 03/11/18 Baclofen 10 mg PO TID 12/30/17 03/11/18 LORazepam [Ativan] 0.5 mg PO TID 12/30/17 03/11/18 Previous Rx's Medication Instructions Recorded Aspirin 81 mg PO DAILY chew 08/22/17 Fluticasone Nasal [place] [Flonase 2 spray EA NOSTRIL DAILY PRN spr 02/19/18 Nasal [place]] Allergies Allergy/AdvReac Type Severity Reaction Status Date / Time adhesive tape Allergy SKIN TEAR Verified 03/11/18 19:56 Review of Systems ROS Statement: Those systems with pertinent positive or pertinent negative responses have been documented in the HPI. ROS Other: All systems not noted in ROS Statement are negative. Past Medical History Past Medical History: Coronary Artery Disease (CAD), Chest Pain / Angina, CVA/ TIA, GERD/Reflux, Hyperlipidemia, Hypertension, Myocardial Infarction (IA), Osteoarthritis (OA) Additional Past Medical History / Comment(s): Degenerative disc disease , syncope, chornic back pain Last Myocardial Infarction Date:: 5-17 History of Any Multi-Drug Resistant Organisms: None Reported Past Surgical History: Heart Catheterization With Stent, Joint Replacement, Orthopedic Surgery Additional Past Surgical History / Comment(s): Ectopic , loop monitor, 3 stents, Total hip B/L Past Anesthesia/Blood Transfusion Reactions: No Reported Reaction Additional Past Anesthesia/Blood Transfusion Reaction / Comment(s): after hip replacement last time had very slow pulse Date of Last Stent Placement:: 05/2017 Past Psychological History: Anxiety Smoking Status: Former smoker Past Alcohol Use History: None Reported Past Drug Use History: None Reported - Past Family History Mother Family Medical History: Cancer, Hypertension Additional Family Medical History / Comment(s): Bone,blood,pancreatic CA Father Family Medical History: Hypertension, Thyroid Disorder Additional Family Medical History / Comment(s): Small Cell Carcoma CA General Exam Limitations: no limitations General appearance: alert, in no apparent distress Head exam: Present: atraumatic, normocephalic Eye exam: Present: normal appearance, PERRL ENT exam: Present: normal exam Neck exam: Present: normal inspection. Absent: tenderness, meningismus Respiratory exam: Present: normal lung sounds bilaterally. Absent: respiratory distress, wheezes Cardiovascular Exam: Present: regular rate, normal rhythm GI/Abdominal exam: Present: soft. Absent: distended, tenderness Extremities exam: Present: normal inspection, normal capillary refill, pedal edema (Trace) Neurological exam: Present: alert, oriented X3, CN II-XII intact. Absent: motor sensory deficit Psychiatric exam: Present: normal affect, normal mood Skin exam: Present: warm, dry, intact. Absent: cyanosis, diaphoretic Course Vital Signs 03/11/18 03/11/18 03/11/18 19:01 20:00 20:30 Temperature 98.5 F Pulse Rate 82 70 70 Respiratory 16 21 17 Rate Blood Pressure 155/96 167/98 162/90 O2 Sat by Pulse 100 100 99 Oximetry EKG Findings - EKG Comments: EKG Findings:: EKG: Normal sinus rhythm, left bundle branch block, no ST segment elevation, no change compared to prior, rate of 80, [place] interval 170, QRS duration 134, QTC 470 Medical Decision Making - Medical Decision Making 62-year-old female with palpitations. Long-standing history of palpitations. EKG obtained, sinus rhythm, normal rate, left bundle branch block which is unchanged compared to prior. Chest x-ray noted for focal pneumonia or acute findings, normal CBC, normal CMP, normal electrolytes, negative troponin. Patient does have good outpatient follow-up. She will return with worsening or changing symptoms. - Lab Data Result diagrams: 03/11/18 19:20 03/11/18 19:20 Lab Results 03/11/18 03/11/18 03/11/18 Range/Units 19:20 19:20 19:20 WBC 6.2 (3.8-10.6) k/uL RBC 4.74 (3.80-5.40) m/uL Hgb 13.9 (11.4-16.0) gm/dL Hct 42.1 (34.0-46.0) % MCV 88.7 (80.0-100.0) fL MCH 29.3 (25.0-35.0) pg MCHC 33.1 (31.0-37.0) g/dL RDW 12.9 (11.5-15.5) % Plt Count 289 (150-450) k/uL Neutrophils % 61 % Lymphocytes % 29 % Monocytes % 5 % Eosinophils % 3 % Basophils % 1 % Neutrophils # 3.8 (1.3-7.7) k/uL Lymphocytes # 1.8 (1.0-4.8) k/uL Monocytes # 0.3 (0-1.0) k/uL Eosinophils # 0.2 (0-0.7) k/uL Basophils # 0.0 (0-0.2) k/uL PT (9.0-12.0) sec INR (<1.2) APTT (22.0-30.0) sec Sodium 143 (137-145) mmol/L Potassium 3.5 (3.5-5.1) mmol/L Chloride 106 (98-107) mmol/L Carbon Dioxide 28 (22-30) mmol/L Anion Gap 9 mmol/L BUN 7 (7-17) mg/dL Creatinine 0.71 (0.52-1.04) mg/dL Est GFR (CKD-EPI)AfAm >90 (>60 ml/min/1.73 sqM) Est GFR (CKD-EPI)NonAf >90 (>60 ml/min/1.73 sqM) Glucose 79 (74-99) mg/dL Calcium 10.0 (8.4-10.2) mg/dL Magnesium 2.0 (1.6-2.3) mg/dL Total Bilirubin 0.5 (0.2-1.3) mg/dL AST 30 (14-36) U/L ALT 47 (9-52) U/L Alkaline Phosphatase 103 (38-126) U/L Total Creatine Kinase 49 (30-135) U/L CK-MB (CK-2) 0.6 (0.0-2.4) ng/mL CK-MB (CK-2) Rel Index 1.2 Troponin I <0.012 (0.000-0.034) ng/mL Total Protein 7.8 (6.3-8.2) g/dL Albumin 4.7 (3.5-5.0) g/dL 03/11/18 Range/Units 19:20 WBC (3.8-10.6) k/uL RBC (3.80-5.40) m/uL Hgb (11.4-16.0) gm/dL Hct (34.0-46.0) % MCV (80.0-100.0) fL MCH (25.0-35.0) pg MCHC (31.0-37.0) g/dL RDW (11.5-15.5) % Plt Count (150-450) k/uL Neutrophils % % Lymphocytes % % Monocytes % % Eosinophils % % Basophils % % Neutrophils # (1.3-7.7) k/uL Lymphocytes # (1.0-4.8) k/uL Monocytes # (0-1.0) k/uL Eosinophils # (0-0.7) k/uL Basophils # (0-0.2) k/uL PT 9.8 (9.0-12.0) sec INR 1.0 (<1.2) APTT 24.7 (22.0-30.0) sec Sodium (137-145) mmol/L Potassium (3.5-5.1) mmol/L Chloride (98-107) mmol/L Carbon Dioxide (22-30) mmol/L Anion Gap mmol/L BUN (7-17) mg/dL Creatinine (0.52-1.04) mg/dL Est GFR (CKD-EPI)AfAm (>60 ml/min/1.73 sqM) Est GFR (CKD-EPI)NonAf (>60 ml/min/1.73 sqM) Glucose (74-99) mg/dL Calcium (8.4-10.2) mg/dL Magnesium (1.6-2.3) mg/dL Total Bilirubin (0.2-1.3) mg/dL AST (14-36) U/L ALT (9-52) U/L Alkaline Phosphatase (38-126) U/L Total Creatine Kinase (30-135) U/L CK-MB (CK-2) (0.0-2.4) ng/mL CK-MB (CK-2) Rel Index Troponin I (0.000-0.034) ng/mL Total Protein (6.3-8.2) g/dL Albumin (3.5-5.0) g/dL Disposition Clinical Impression: Palpitations Disposition: HOME SELF-CARE Condition: Good Instructions: Heart Palpitations (ED) Is patient prescribed a controlled substance at d/c from ED?: No Referrals: Pinky Gilbert MD [Primary Care Provider] - 1-2 days Time of Disposition: 20:58
[2018-03-11 19:38] LABS: ALT 47 U/L (9-52); AST 30 U/L (14-36); Albumin 4.7 g/dL (3.5-5.0); Alkaline Phosphatase 103 U/L (38-126); Anion Gap 9 mmol/L; Blood Urea Nitrogen 7 mg/dL (7-17); Carbon Dioxide 28 mmol/L (22-30); Chloride 106 mmol/L (98-107); Glucose 79 mg/dL (74-99); Potassium 3.5 mmol/L (3.5-5.1); Sodium 143 mmol/L (137-145); Total Bilirubin 0.5 mg/dL (0.2-1.3); Total Protein 7.8 g/dL (6.3-8.2)
[2018-03-11 19:42] LABS: Creatine Kinase 49 U/L (30-135)
[2018-03-11 19:56] LABS: Creatine Kinase MB 0.6 ng/mL (0.0-2.4); Troponin I <0.012 ng/mL (0.000-0.034)
[2018-03-11 20:02] LABS: Partial Thromboplastin Time 24.7 sec (22.0-30.0); Prothrombin Time 9.8 sec (9.0-12.0)
--- NOTE | 2018-03-11 20:14 | XR ---
EXAMINATION TYPE: XR chest 2V DATE OF EXAM: 03/11/2018 COMPARISON: 02/18/2018 HISTORY: Dysrhythmia TECHNIQUE: Frontal and lateral views of the chest are obtained. FINDINGS: Heart and mediastinum are normal. Lungs are clear. Diaphragm is normal. Bony thorax appear s normal. IMPRESSION: Normal chest. No change.
[2018-03-11 21:05] VITALS: BP 155/86; PULSE 60; RESP 18; TEMP 98
== END 2018-03-11 21:05 | disposition home or self-care (01) ==
LOC: EC 18:59
DX: R00.2 Palpitations (principal); I44.7 Left bundle-branch block, unspecified; R51 Headache; E78.5 Hyperlipidemia, unspecified; I10 Essential (primary) hypertension; I25.10 Atherosclerotic heart disease of native coronary artery without angina pectoris; M19.90 Unspecified osteoarthritis, unspecified site; I25.2 Old myocardial infarction; F41.9 Anxiety disorder, unspecified; Z87.891 Personal history of nicotine dependence; Z91.048 Other nonmedicinal substance allergy status; Z79.02 Long term (current) use of antithrombotics/antiplatelets; Z79.899 Other long term (current) drug therapy; Z86.73 Personal history of transient ischemic attack (TIA), and cerebral infarction without residual deficits; Z95.5 Presence of coronary angioplasty implant and graft; Z96.643 Presence of artificial hip joint, bilateral; Z82.49 Family history of ischemic heart disease and other diseases of the circulatory system
CPT/HCPCS: 36415; 71046; 80053; 82550; 82553; 83735; 84484; 85025; 85610; 85730; 93005; 96360; 96361; 99285

== ENCOUNTER 2018-04-02 19:45 | Observation (INO) | payer MEDICARE ==
[2018-04-02] MEDS ORDERED: SODIUM CHLORIDE 0.9% 500 ML 500 ML IV STA (19:57)
--- NOTE | 2018-04-02 20:06 | ED ---
General Adult HPI - General Chief complaint: Chest Pain Stated complaint: Chest pain Source: patient Mode of arrival: wheelchair Limitations: no limitations - History of Present Illness Initial comments: Dictation was produced using Fullscreen dictation software. please excuse any grammatical, word or spelling errors. Chief Complaint: 62-year-old female past medical history of recent coronary artery stent placement presents with syncope and chest pain. History of Present Illness: Patient is 62-year-old female past medical history of coronary artery disease presents with episode of substernal chest pressure and presyncope. Patient states she got home from shopping when she put her contacts out. She then felt some substernal chest pressure her left anterior chest. She states it lasted for approximately 15 seconds. Shortly after patient became very lightheaded. She denies any chest pain currently. Patient is otherwise asymptomatic at this time. The ROS documented in this emergency department record has been reviewed and confirmed by me. Those systems with pertinent positive or negative responses have been documented in the HPI. All other systems are other negative and/or noncontributory. - Related Data Home Medications Medication Instructions Recorded Confirmed Atorvastatin [Lipitor] 40 mg PO HS 07/28/17 04/02/18 Clopidogrel [Plavix] 75 mg PO DAILY 07/28/17 04/02/18 Baclofen 10 mg PO TID 12/30/17 04/02/18 LORazepam [Ativan] 0.5 mg PO TID 12/30/17 04/02/18 Multivitamins, Thera [Multivitamin 1 tab PO DAILY 04/02/18 04/02/18 (formulary)] Red Eye Drops(Unknown) 1 drop BOTH EYES BID 04/02/18 04/02/18 Previous Rx's Medication Instructions Recorded Aspirin 81 mg PO DAILY chew 08/22/17 Fluticasone Nasal [place] [Flonase 2 spray EA NOSTRIL DAILY PRN spr 02/19/18 Nasal [place]] Allergies Allergy/AdvReac Type Severity Reaction Status Date / Time adhesive tape Allergy SKIN TEAR Verified 04/02/18 20:47 Review of Systems ROS Statement: Those systems with pertinent positive or pertinent negative responses have been documented in the HPI. ROS Other: All systems not noted in ROS Statement are negative. Past Medical History Past Medical History: Coronary Artery Disease (CAD), Chest Pain / Angina, CVA/ TIA, GERD/Reflux, Hyperlipidemia, Hypertension, Myocardial Infarction (CT), Osteoarthritis (OA) Additional Past Medical History / Comment(s): Degenerative disc disease , syncope, chornic back pain Last Myocardial Infarction Date:: 5 History of Any Multi-Drug Resistant Organisms: None Reported Past Surgical History: Heart Catheterization With Stent, Joint Replacement, Orthopedic Surgery Additional Past Surgical History / Comment(s): Ectopic , loop monitor, 3 stents, Total hip B/L Past Anesthesia/Blood Transfusion Reactions: No Reported Reaction Additional Past Anesthesia/Blood Transfusion Reaction / Comment(s): after hip replacement last time had very slow pulse Date of Last Stent Placement:: 05/2017 Past Psychological History: Anxiety Smoking Status: Former smoker Past Alcohol Use History: None Reported Past Drug Use History: None Reported - Past Family History Mother Family Medical History: Cancer, Hypertension Additional Family Medical History / Comment(s): Bone,blood,pancreatic CA Father Family Medical History: Hypertension, Thyroid Disorder Additional Family Medical History / Comment(s): Small Cell Carcoma [place] General Exam - General Exam Comments Initial Comments: PHYSICAL EXAM: General Impression: Alert and oriented x3, not in acute distress HEENT: Normocephalic atraumatic, extra-ocular movements intact, pupils equal and reactive to light bilaterally, mucous membranes moist. Cardiovascular: Heart regular rate and rhythm, S1&S2 audible, no murmurs, rubs or gallops Chest: Lungs clear to auscultation bilaterally, no rhonchi, no wheeze, no rales Abdomen: Bowel sounds present, abdomen soft, non-tender, non-distended, no organomegaly Musculoskeletal: Pulses present and equal in all extremities, no peripheral edema Motor: Power 5/5 bilaterally, no focal deficits noted Neurological: CN II-XII grossly intact, no focal motor or sensory deficits noted Skin: Intact with no visualized rashes Psych: Normal affect and mood Limitations: no limitations Course Vital Signs 04/02/18 04/02/18 19:48 20:24 Temperature 97.9 F Pulse Rate 73 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 Laboratory evaluation obtained. CBC, coag panel, metabolic panel is unremarkable. Cardiac enzymes are negative. Chest x-ray reviewed by myself shows no acute processes. Clinical presentation consistent with atypical chest pain with typical features. Given patient's cardiac history and recent stent placement will plan outpatient place and observation unit for serial troponins. Patient given aspirin. EKG interpretation: Ventricular rate 68, normal sinus rhythm, [place] interval 174, QRS 138, QTc 467. No [place] prolongation, no QTC prolongation, no ST or T-wave changes noted. EKG compared to 03/11/2018 showing no changes. Overall, this EKG is unremarkable - Lab Data Result diagrams: 04/02/18 20:22 04/02/18 20:22 Lab Results 04/02/18 04/02/18 04/02/18 Range/Units 20:22 20:22 20:22 WBC 6.1 (3.8-10.6) k/uL RBC 4.31 (3.80-5.40) m/uL Hgb 12.9 (11.4-16.0) gm/dL Hct 37.9 (34.0-46.0) % MCV 88.0 (80.0-100.0) fL MCH 30.1 (25.0-35.0) pg MCHC 34.2 (31.0-37.0) g/dL RDW 12.8 (11.5-15.5) % Plt Count 252 (150-450) k/uL Neutrophils % 53 % Lymphocytes % 37 % Monocytes % 6 % Eosinophils % 3 % Basophils % 0 % Neutrophils # 3.2 (1.3-7.7) k/uL Lymphocytes # 2.3 (1.0-4.8) k/uL Monocytes # 0.3 (0-1.0) k/uL Eosinophils # 0.2 (0-0.7) k/uL Basophils # 0.0 (0-0.2) k/uL PT (9.0-12.0) sec INR (<1.2) APTT (22.0-30.0) sec Sodium 142 (137-145) mmol/L Potassium 3.8 (3.5-5.1) mmol/L Chloride 107 (98-107) mmol/L Carbon Dioxide 26 (22-30) mmol/L Anion Gap 9 mmol/L BUN 6 L (7-17) mg/dL Creatinine 0.74 (0.52-1.04) mg/dL Est GFR (CKD-EPI)AfAm >90 (>60 ml/min/1.73 sqM) Est GFR (CKD-EPI)NonAf 89 (>60 ml/min/1.73 sqM) Glucose 102 H (74-99) mg/dL Calcium 9.8 (8.4-10.2) mg/dL Magnesium 1.9 (1.6-2.3) mg/dL Total Bilirubin 0.5 (0.2-1.3) mg/dL AST 25 (14-36) U/L ALT 27 (9-52) U/L Alkaline Phosphatase 84 (38-126) U/L Total Creatine Kinase 49 (30-135) U/L CK-MB (CK-2) 0.4 (0.0-2.4) ng/mL CK-MB (CK-2) Rel Index 0.8 Troponin I <0.012 (0.000-0.034) ng/mL Total Protein 6.7 (6.3-8.2) g/dL Albumin 4.0 (3.5-5.0) g/dL 04/02/18 Range/Units 20:22 WBC (3.8-10.6) k/uL RBC (3.80-5.40) m/uL Hgb (11.4-16.0) gm/dL Hct (34.0-46.0) % MCV (80.0-100.0) fL MCH (25.0-35.0) pg MCHC (31.0-37.0) g/dL RDW (11.5-15.5) % Plt Count (150-450) k/uL Neutrophils % % Lymphocytes % % Monocytes % % Eosinophils % % Basophils % % Neutrophils # (1.3-7.7) k/uL Lymphocytes # (1.0-4.8) k/uL Monocytes # (0-1.0) k/uL Eosinophils # (0-0.7) k/uL Basophils # (0-0.2) k/uL PT 10.6 (9.0-12.0) sec INR 1.1 (<1.2) APTT 24.5 (22.0-30.0) sec Sodium (137-145) mmol/L Potassium (3.5-5.1) mmol/L Chloride (98-107) mmol/L Carbon Dioxide (22-30) mmol/L Anion Gap mmol/L BUN (7-17) mg/dL Creatinine (0.52-1.04) mg/dL Est GFR (CKD-EPI)AfAm (>60 ml/min/1.73 sqM) Est GFR (CKD-EPI)NonAf (>60 ml/min/1.73 sqM) Glucose (74-99) mg/dL Calcium (8.4-10.2) mg/dL Magnesium (1.6-2.3) mg/dL Total Bilirubin (0.2-1.3) mg/dL AST (14-36) U/L ALT (9-52) U/L Alkaline Phosphatase (38-126) U/L Total Creatine Kinase (30-135) U/L CK-MB (CK-2) (0.0-2.4) ng/mL CK-MB (CK-2) Rel Index Troponin I (0.000-0.034) ng/mL Total Protein (6.3-8.2) g/dL Albumin (3.5-5.0) g/dL Disposition Clinical Impression: Chest pain Disposition: ADMITTED IP TO THIS HOSP Condition: Fair Referrals: Pinky Gilbert MD [Primary Care Provider] - 1-2 days Decision Time: 22:49
[2018-04-02 20:42] LABS: Basophils % (A) 0 %; Eosinophils # (A) 0.2 k/uL (0-0.7); Eosinophils % (A) 3 %; HCT 37.9 % (34.0-46.0); HGB 12.9 gm/dL (11.4-16.0); Lymphocytes # (A) 2.3 k/uL (1.0-4.8); Lymphocytes % (A) 37 %; MCH 30.1 pg (25.0-35.0); MCHC 34.2 g/dL (31.0-37.0); Mean Platelet Volume 7.4; Monocytes # (A) 0.3 k/uL (0-1.0); Monocytes % (A) 6 %; Neutrophils # (A) 3.2 k/uL (1.3-7.7); Neutrophils % (A) 53 %; Platelet Count 252 k/uL (150-450); RBC 4.31 m/uL (3.80-5.40); RDW 12.8 % (11.5-15.5); WBC 6.1 k/uL (3.8-10.6)
[2018-04-02 20:52] LABS: ALT 27 U/L (9-52); AST 25 U/L (14-36); Alkaline Phosphatase 84 U/L (38-126); Anion Gap 9 mmol/L; Blood Urea Nitrogen 6 mg/dL (7-17); Calcium 9.8 mg/dL (8.4-10.2); Carbon Dioxide 26 mmol/L (22-30); Chloride 107 mmol/L (98-107); Glucose 102 mg/dL (74-99); INR 1.1 (<1.2); Magnesium 1.9 mg/dL (1.6-2.3); Partial Thromboplastin Time 24.5 sec (22.0-30.0); Potassium 3.8 mmol/L (3.5-5.1); Prothrombin Time 10.6 sec (9.0-12.0); Sodium 142 mmol/L (137-145); Total Bilirubin 0.5 mg/dL (0.2-1.3); Total Protein 6.7 g/dL (6.3-8.2)
[2018-04-02 21:11] LABS: Creatine Kinase 49 U/L (30-135)
[2018-04-02 21:23] LABS: Creatine Kinase MB 0.4 ng/mL (0.0-2.4); Troponin I <0.012 ng/mL (0.000-0.034)
[2018-04-02] MEDS ORDERED: NITROGLYCERIN SL TABS 0.4 MG TAB SUBLINGUAL PRN (22:47)
[2018-04-02] MEDS ORDERED: ASPIRIN 81 MG PO STA (22:47)
--- NOTE | 2018-04-03 00:17 | XR ---
EXAM: XR Chest, 2 Views CLINICAL HISTORY: Reason: Chest Pain TECHNIQUE: Frontal and lateral views of the chest. COMPARISON: Chest x-ray 03/11/2018 FINDINGS: Lungs: Lungs are clear Pleural space: No evidence of pleural effusion or pneumothorax. Heart: Heart size is within normal limits. Mediastinum: Mediastinal structures are unremarkable. Bones/joints: Imaged bony thorax is unremarkable. IMPRESSION: No evidence of acute cardiopulmonary disease.
[2018-04-03] MEDS: BACLOFEN 10 MG TAB PO SCH ×2 (01:12→09:39)
[2018-04-03] MEDS: LORazepam 0.5 MG TAB PO SCH ×2 (01:12→11:22)
[2018-04-03 03:06] LABS: Cholesterol 110 mg/dL (<200); HDL Cholesterol 51 mg/dL (40-60); LDL Cholesterol,Calculated 43 mg/dL (0-99); Triglycerides 80 mg/dL (<150)
[2018-04-03 03:16] LABS: Creatine Kinase 40 U/L (30-135)
[2018-04-03 03:30] LABS: Creatine Kinase MB 0.4 ng/mL (0.0-2.4); Troponin I <0.012 ng/mL (0.000-0.034)
[2018-04-03 07:32] VITALS: RESP 18
--- NOTE | 2018-04-03 08:38 | P.CRDCN ---
History of Present Illness History of present illness: This is a 62-year-old female past medical history significant for coronary artery disease status post angioplasty most recently in May 2017, hypertension, dyslipidemia, frequent palpitations with a loop recorder in place , chronic nicotine dependence and osteoarthritis. She follows with Dr. Granados in the office. We have been asked to see her in consultation for symptoms of chest discomfort. She states yesterday while she was grocery shopping pushing the cart she felt a pressure sensation in the left precordial region. She states that she placed her hand on her chest and he felt very warm to touch. She denies associated shortness of breath, dizziness or palpitations. She continued to grocery shop and continues to feel mild discomfort in the chest. She was able to load her groceries into a car at the grocery store and then from her car to her home without any significant change in her discomfort. She states after putting well over grocery she sat down and was eating some Jell-O drinking some water when she again felt another jolt of pain in her left precordial region. This time the pain was very sharp and she states that it caused her to double over. She again denies shortness of breath dizziness or palpitations. She states she sat in her chair for a few more minutes and the pain did not come back again. Although she started feeling her heart racing. She says that was flip-flopping in her words for approximately one to 2 minutes. At the time of my exam she is seen resting comfortably in bed in no acute distress. She denies any further symptoms of chest discomfort, shortness of breath, dizziness or palpitations. She also denies any cough, fever, chills , PND or orthopnea. She states she's been following with Dr. Santos recently and been told that she needs her gallbladder removed. However Dr. Nuñez recommends she waits until she is at least one year status post angioplasty to proceed with the surgery. She has been advised to follow-up with Dr. Granados in the office. EKG reveals left bundle branch block pattern. Chest x-ray negative for an acute cardiopulmonary process. Laboratory data reviewed, WBC 6.1, hemoglobin 12.9, platelets 252, sodium 142, potassium 3.8, creatinine 0.74, magnesium 1.9, cardiac enzymes negative 2, LDL 43 and HDL 51. Current cardiac medications include aspirin 81 mg daily, atorvastatin 40 mg daily, Plavix 75 mg daily. Cardiac catheterization performed May 2017 she underwent successful stenting of the first diagonal branch of the LAD, successful stenting of the RCA midportion, successful stenting of the distal circumflex artery. At that time she was found to have a patent stent in the distal circumflex, proximal and mid RCA and first diagonal branch. Most recent echo performed 12/2017 revealed preserved LV systolic function with EF 60-65%. At the time of my exam: CONSTITUTIONAL: Denies fever. Denies chills. EYES: Denies blurred vision. Denies vision changes. Denies eye pain. EARS, NOSE, MOUTH & THROAT: Denies headache. Denies sore throat. Denies ear pain. CARDIOVASCULAR: Denies chest pain. Denies shortness of breath. Denies orthopnea. Denies PND. Denies palpitations. RESPIRATORY: Denies cough. GASTROINTESTINAL: Denies abdominal pain. Denies diarrhea. Denies constipation. Denies nausea. Denies vomiting. MUSCULOSKELETAL: Denies myalgias. INTEGUMENTARY: Denies pruitis. Denies rash. NEUROLOGIC: Denies numbness. Denies tingling. Denies weakness. PSYCHIATRIC: Denies anxiety. Denies depression. ENDOCRINE: Denies fatigue. Denies weight change. Denies polydipsia. Denies polyurina. GENITOURINARY: Denies burning, hematuria or urgency with micturation. HEMATOLOGIC: Denies history of anemia. Denies bleeding. Blood pressure 126/84 heart rate 64 afebrile maintaining oxygen saturation on room air GENERAL: This is a 62-year-old female in no apparent distress at the time of my examination. HEENT: Head is atraumatic, normocephalic. Pupils are equal, round. Sclerae anicteric. Conjunctivae are clear. Mucous membranes of the mouth are moist. Neck is supple. There is no jugular venous distention. No carotid bruit is heard. LUNGS: Clear to auscultation no wheezes, rales or rhonchi. No chest wall tenderness is noted on palpation or with deep breathing. HEART: Regular rate and rhythm without murmurs, rubs or gallops. S1 and S2 heard. ABDOMEN: Soft, nontender. Bowel sounds are heard. No organomegaly noted. EXTREMITIES: No evidence of peripheral edema and no calf tenderness noted. VASCULAR: Radial and dorsalis pedis pulses palpated, no evidence of clubbing. NEUROLOGIC: Patient is awake, alert and oriented x3. ASSESSMENT Chest pain, atypical for angina. An acute coronary event has been ruled out. History of coronary artery disease with recent angioplasty May 2017 currently maintained on dual antiplatelet therapy Dyslipidemia, controlled Gallbladder disease History of anxiety PLAN An acute coronary event has been ruled out and she is stable from a cardiac perspective. Continue with aspirin, plavix and atorvastatin. She can be discharged home to follow-up with Dr. Granados in 2-3 weeks. Thank you kindly for this consultation. Nurse Practitioner note has been reviewed, I agree with a documented findings and plan of care. Patient was seen and examined. Past Medical History Past Medical History: Coronary Artery Disease (CAD), Chest Pain / Angina, CVA/ TIA, Hyperlipidemia, Hypertension, Myocardial Infarction ([place]), Osteoarthritis ( OA), Syncope Additional Past Medical History / Comment(s): Degenerative disc disease, chornic back pain Last Myocardial Infarction Date:: 09/2017 History of Any Multi-Drug Resistant Organisms: None Reported Past Surgical History: Heart Catheterization With Stent, Joint Replacement, Orthopedic Surgery Additional Past Surgical History / Comment(s): Ectopic , loop monitor, 3 stents, Total hip B/L Past Anesthesia/Blood Transfusion Reactions: No Reported Reaction Additional Past Anesthesia/Blood Transfusion Reaction / Comment(s): after hip replacement last time had very slow pulse Date of Last Stent Placement:: 05/2017 Past Psychological History: Anxiety Smoking Status: Former smoker Past Alcohol Use History: None Reported Additional Past Alcohol Use History / Comment(s): quit smoking November 2016, started smoking at age of 13, smoked 1ppd Past Drug Use History: None Reported - Past Family History Mother Family Medical History: Cancer, Hypertension Additional Family Medical History / Comment(s): Bone,blood,pancreatic CA Father Family Medical History: Hypertension, Thyroid Disorder Additional Family Medical History / Comment(s): Small Cell Carcoma CA Medications and Allergies Home Medications Medication Instructions Recorded Confirmed Type Atorvastatin [Lipitor] 40 mg PO HS 07/28/17 04/03/18 History Clopidogrel [Plavix] 75 mg PO DAILY 07/28/17 04/03/18 History Aspirin 81 mg PO DAILY chew 08/22/17 04/03/18 Rx Baclofen 10 mg PO TID 12/30/17 04/03/18 History LORazepam [Ativan] 0.5 mg PO TID 12/30/17 04/03/18 History Fluticasone Nasal [place] [Flonase 2 spray EA NOSTRIL DAILY PRN spr 02/19/1808/16 Rx Nasal Purvis] Eye Lubricant Combination No.1 1 applic BOTH EYES TID PRN 04/02/18 04/03/18 History [[place]] Multivitamins, Thera [Multivitamin 1 tab PO Q72H 04/02/18 04/03/18 History (formulary)] Allergies Allergy/AdvReac Type Severity Reaction Status Date / Time adhesive tape Allergy SKIN TEAR Verified 04/02/18 23:54 Physical Exam Vitals: Vital Signs Temp Pulse Pulse Pulse Resp BP BP 04/03/18 07:31 97.4 F L 64 18 126/84 04/03/18 03:31 97.5 F L 59 L 16 124/78 04/03/18 03:29 16 04/03/18 00:00 98.3 F 63 16 164/89 04/02/18 23:35 98.3 F 17 04/02/18 22:50 72 19 158/88 04/02/18 20:24 63 04/02/18 19:48 97.9 F 73 16 166/99 Pulse Ox 04/03/18 07:31 97 04/03/18 03:31 97 04/03/18 03:29 04/03/18 00:00 100 04/02/18 23:35 04/02/18 22:50 100 04/02/18 20:24 04/02/18 19:48 99 Intake and Output 04/02/18 04/03/18 04/03/18 22:59 06:59 14:59 Other: Voiding Method Toilet Weight 68.039 kg Results 04/02/18 20:22 04/02/18 20:22 Cardiac Enzymes 04/02/18 04/02/18 04/02/18 Range/Units 20:22 20:22 20:22 WBC 6.1 (3.8-10.6) k/uL RBC 4.31 (3.80-5.40) m/uL Hgb 12.9 (11.4-16.0) gm/dL Hct 37.9 (34.0-46.0) % MCV 88.0 (80.0-100.0) fL MCH 30.1 (25.0-35.0) pg MCHC 34.2 (31.0-37.0) g/dL RDW 12.8 (11.5-15.5) % Plt Count 252 (150-450) k/uL Neutrophils % 53 % Lymphocytes % 37 % Monocytes % 6 % Eosinophils % 3 % Basophils % 0 % Neutrophils # 3.2 (1.3-7.7) k/uL Lymphocytes # 2.3 (1.0-4.8) k/uL Monocytes # 0.3 (0-1.0) k/uL Eosinophils # 0.2 (0-0.7) k/uL Basophils # 0.0 (0-0.2) k/uL PT (9.0-12.0) sec INR (<1.2) APTT (22.0-30.0) sec Sodium 142 (137-145) mmol/L Potassium 3.8 (3.5-5.1) mmol/L Chloride 107 (98-107) mmol/L Carbon Dioxide 26 (22-30) mmol/L Anion Gap 9 mmol/L BUN 6 L (7-17) mg/dL Creatinine 0.74 (0.52-1.04) mg/dL Est GFR (CKD-EPI)AfAm >90 (>60 ml/min/1.73 sqM) Est GFR (CKD-EPI)NonAf 89 (>60 ml/min/1.73 sqM) Glucose 102 H (74-99) mg/dL Calcium 9.8 (8.4-10.2) mg/dL Magnesium 1.9 (1.6-2.3) mg/dL Total Bilirubin 0.5 (0.2-1.3) mg/dL AST 25 (14-36) U/L ALT 27 (9-52) U/L Alkaline Phosphatase 84 (38-126) U/L Total Creatine Kinase 49 (30-135) U/L CK-MB (CK-2) 0.4 (0.0-2.4) ng/mL CK-MB (CK-2) Rel Index 0.8 Troponin I <0.012 (0.000-0.034) ng/mL Total Protein 6.7 (6.3-8.2) g/dL Albumin 4.0 (3.5-5.0) g/dL Triglycerides (<150) mg/dL Cholesterol (<200) mg/dL LDL Cholesterol, Calc (0-99) mg/dL HDL Cholesterol (40-60) mg/dL 04/02/18 04/03/18 04/03/18 Range/Units 20:22 02:25 02:25 WBC (3.8-10.6) k/uL RBC (3.80-5.40) m/uL Hgb (11.4-16.0) gm/dL Hct (34.0-46.0) % MCV (80.0-100.0) fL MCH (25.0-35.0) pg MCHC (31.0-37.0) g/dL RDW (11.5-15.5) % Plt Count (150-450) k/uL Neutrophils % % Lymphocytes % % Monocytes % % Eosinophils % % Basophils % % Neutrophils # (1.3-7.7) k/uL Lymphocytes # (1.0-4.8) k/uL Monocytes # (0-1.0) k/uL Eosinophils # (0-0.7) k/uL Basophils # (0-0.2) k/uL PT 10.6 (9.0-12.0) sec INR 1.1 (<1.2) APTT 24.5 (22.0-30.0) sec Sodium (137-145) mmol/L Potassium (3.5-5.1) mmol/L Chloride (98-107) mmol/L Carbon Dioxide (22-30) mmol/L Anion Gap mmol/L BUN (7-17) mg/dL Creatinine (0.52-1.04) mg/dL Est GFR (CKD-EPI)AfAm (>60 ml/min/1.73 sqM) Est GFR (CKD-EPI)NonAf (>60 ml/min/1.73 sqM) Glucose (74-99) mg/dL Calcium (8.4-10.2) mg/dL Magnesium (1.6-2.3) mg/dL Total Bilirubin (0.2-1.3) mg/dL AST (14-36) U/L ALT (9-52) U/L Alkaline Phosphatase (38-126) U/L Total Creatine Kinase 40 (30-135) U/L CK-MB (CK-2) 0.4 (0.0-2.4) ng/mL CK-MB (CK-2) Rel Index 1.0 Troponin I <0.012 (0.000-0.034) ng/mL Total Protein (6.3-8.2) g/dL Albumin (3.5-5.0) g/dL Triglycerides 80 (<150) mg/dL Cholesterol 110 (<200) mg/dL LDL Cholesterol, Calc 43 (0-99) mg/dL HDL Cholesterol 51 (40-60) mg/dL Coagulation 04/02/18 Range/Units 20:22 PT 10.6 (9.0-12.0) sec APTT 24.5 (22.0-30.0) sec Lipids 04/03/18 Range/Units 02:25 Triglycerides 80 (<150) mg/dL Cholesterol 110 (<200) mg/dL HDL Cholesterol 51 (40-60) mg/dL CBC 04/02/18 Range/Units 20:22 WBC 6.1 (3.8-10.6) k/uL RBC 4.31 (3.80-5.40) m/uL Hgb 12.9 (11.4-16.0) gm/dL Hct 37.9 (34.0-46.0) % Plt Count 252 (150-450) k/uL Comprehensive Metabolic Panel 04/02/18 Range/Units 20:22 Sodium 142 (137-145) mmol/L Potassium 3.8 (3.5-5.1) mmol/L Chloride 107 (98-107) mmol/L Carbon Dioxide 26 (22-30) mmol/L BUN 6 L (7-17) mg/dL Creatinine 0.74 (0.52-1.04) mg/dL Glucose 102 H (74-99) mg/dL Calcium 9.8 (8.4-10.2) mg/dL AST 25 (14-36) U/L ALT 27 (9-52) U/L Alkaline Phosphatase 84 (38-126) U/L Total Protein 6.7 (6.3-8.2) g/dL Albumin 4.0 (3.5-5.0) g/dL Current Medications Generic Name Dose Route Start Last Admin Trade Name Freq PRN Reason Stop Dose Admin Aspirin 325 mg 04/03/18 09:00 Aspirin PO DAILY DORIS Baclofen 10 mg 04/03/18 00:45 04/03/18 01:12 Lioresal PO 10 mg TID DORIS Administration Lorazepam 0.5 mg 04/03/18 00:45 04/03/18 01:12 Ativan PO 0.5 mg TID DORIS Administration Nitroglycerin 0.4 mg 04/02/18 22:47 Nitrostat SUBLINGUAL Q5M PRN Chest Pain Intake and Output 04/02/18 04/03/18 04/03/18 22:59 06:59 14:59 Other: Voiding Method Toilet Weight 68.039 kg 04/02/18 20:22 04/02/18 20:22
[2018-04-03] MEDS ORDERED: ASPIRIN 325 MG TAB PO SCH (09:00)
[2018-04-03 09:35] LABS: Creatine Kinase 37 U/L (30-135)
[2018-04-03 09:49] LABS: Creatine Kinase MB 0.3 ng/mL (0.0-2.4); Troponin I <0.012 ng/mL (0.000-0.034)
[2018-04-03] MEDS ORDERED: ARTIFICIAL TEARS OINTMENT 3.5 GM TUBE BOTH EYES PRN (10:47)
[2018-04-03] MEDS ORDERED: FLUTICASONE 50MCG/SPRAY NASAL 16GM EA NOSTRIL PRN (10:47)
[2018-04-03] MEDS ORDERED: CLOPIDOGREL 75 MG TAB PO SCH (11:00)
[2018-04-03] MEDS ORDERED: MULTIVITAMINS, THERA 1 EACH TAB PO SCH (11:00)
[2018-04-03 11:37] VITALS: BP 143/85; PULSE 58; TEMP 97.8
--- NOTE | 2018-04-03 15:09 | HP ---
HISTORY AND PHYSICAL THIS IS A COMBINATION OF HISTORY AND PHYSICAL AND DISCHARGE SUMMARY DATE OF SERVICE: 04/03/2018 CHIEF COMPLAINT: Chest pain. HISTORY OF PRESENT ILLNESS: This is a 62-year-old woman with a past medical history of CAD, stent x3, CVA, TIA, hypertension, hyperlipidemia, history of DJD, history of syncope, anxiety being followed by Dr. Gilbert in the outpatient setting, was complaining of chest pain while the patient was shopping. The patient had a pressure type of pain and reported chest radiating to the back. The pain was is the left anterior part of the chest which is a pressure type of feeling, lasted about 15 seconds. The patient became slightly lighted- headed and patient came to [facility] and admitted for further evaluation and treatment. There is no history of fever rigors, no history of headache, nausea. EKG no acute changes. Troponins are negative also. The vital signs are also stable. Cardiology evaluated the patient. PAST MEDICAL HISTORY: History of CAD, stent, history of CVA, hypertension, hyperlipidemia, myocardial infarction, DJD, history of syncope, history of anxiety. MEDICATIONS: Prior to admission include home medications are: 1. Multivitamins 1 p.o. daily. 2. Ativan 0.5 mg t.i.d. 3. Fluticasone 2 sprays daily p.r.n. 4. Eye lubricant 1 application b.i.d. p.r.n. 5. Plavix 75 mg p.o. daily. 6. Claritin 10 mg daily. 7. Lipitor 40 mg q.a.m. 8. Aspirin 81 mg daily. 9. Protonix 40 mg p.o. daily. ALLERGIES: ADHESIVE TAPES. FAMILY HISTORY: History of cancer, hypertension, history of pancreatic cancer. SOCIAL HISTORY: Previous history of smoking. No history of alcohol intake. REVIEW OF SYSTEMS: ENT: No diminished hearing or vision. CARDIOVASCULAR: As mentioned earlier. RESPIRATORY: As mentioned earlier. GI: No nausea. : No dysuria. NERVOUS SYSTEM; No numbness or weakness. ALLERGY/IMMUNOLOGY: No asthma or hayfever. MUSCULOSKELETAL: As mentioned earlier. HEMATOLOGY/ONCOLOGY: Negative. ENDOCRINE: No history of diabetes or hypothyroidism. CONSTITUTIONAL: Negative. DERMATOLOGY: Negative. PSYCHIATRY: As mentioned earlier. PHYSICAL EXAM: Patient is alert, oriented x3. Pulse 58, blood pressure 140/48, respiration 18, temperature 97.2, pulse ox 97% on room air. HEENT: Conjunctivae normal. Oral mucosa moist. Neck is no jugular venous distention. No carotid bruit, no lymph node enlargement. CARDIOVASCULAR: S1, S2, muffled. RESPIRATORY: Breath sounds diminished at the bases, a few scattered rhonchi. No crackles. ABDOMEN: Soft, nontender. No mass palpable. LEGS: No edema, no swelling. NERVOUS SYSTEM: Higher functions as mentioned earlier, moves all four limbs, no focal motor deficits. LYMPHATICS. No lymph node enlargement in the neck or axillae. SKIN: No ulcer, rash or bleeding. LABS: CBC within normal limits and glucose 102. TSH 1.33. ASSESSMENT: 1. Chest pain, possible unstable angina. 2. History of coronary artery disease, stent. 3. History of cerebrovascular accident, transient ischemic attack. 4. Hypertension. 5. Hyperlipidemia. 6. History of myocardial infarction. 7. History of syncope. 8. History of degenerative joint disease. 9. History of back pain. 10.History of anxiety. RECOMMENDATION: In this 62-year-old woman who presented with multiple medical problems, at this time I recommend to continue current medications. Cardiology, Dr. Hodgson has evaluated the patient and recommended discharge. Please refer to Cardiology note for further details. Otherwise, the patient had a previous workup by Dr. Granados. I would recommend close follow up with Dr. Granados in the outpatient setting, and the discharge recommendations will be, diet is cardiac, activity limited until followup. Follow up with Dr. Granados in 1 week. Follow up with Dr. Gilbert in 2-3 days. MEDICATIONS: 1. Lipitor 40 mg q.h.s. 2. Baclofen 10 mg p.o. t.i.d. 3. Plavix 75 mg. 4. Eye lubricant. 5. Ativan 0.5 mg daily. 6. Multivitamin 1 p.o. daily. 7. Aspirin 81 mg p.o. daily. 8. Fluticasone. 9. Protonix 40 mg p.o. daily. MMODL / IJN: [id number] /
[2018-04-03] MEDS ORDERED: ATORVASTATIN 40 MG TAB PO SCH (21:00)
== END 2018-04-03 15:12 | disposition home or self-care (01) ==
LOC: EC 19:45 → 1SOBS 22:47
PROVIDERS: ADMIT Hospitalist; ATTEND Hospitalist
DX: R07.89 Other chest pain (principal); R07.2 Precordial pain; R42 Dizziness and giddiness; R00.0 Tachycardia, unspecified; R55 Syncope and collapse; K82.9 Disease of gallbladder, unspecified; K21.9 Gastro-esophageal reflux disease without esophagitis; I25.10 Atherosclerotic heart disease of native coronary artery without angina pectoris; I10 Essential (primary) hypertension; E78.5 Hyperlipidemia, unspecified; I25.2 Old myocardial infarction; M19.90 Unspecified osteoarthritis, unspecified site; M54.9 Dorsalgia, unspecified; F41.9 Anxiety disorder, unspecified; Z95.5 Presence of coronary angioplasty implant and graft; Z95.818 Presence of other cardiac implants and grafts; Z86.73 Personal history of transient ischemic attack (TIA), and cerebral infarction without residual deficits; Z87.891 Personal history of nicotine dependence; Z82.49 Family history of ischemic heart disease and other diseases of the circulatory system; Z80.0 Family history of malignant neoplasm of digestive organs; Z83.49 Family history of other endocrine, nutritional and metabolic diseases; Z91.048 Other nonmedicinal substance allergy status; Z79.899 Other long term (current) drug therapy; Z79.02 Long term (current) use of antithrombotics/antiplatelets; Z79.82 Long term (current) use of aspirin
CPT/HCPCS: 99285; 36415; 93005; 80061; 80053; 84443; 82550 ×2; 82553 ×2; 83735; 84484 ×2; 85025; 85610; 85730; 84480; 71046; G0378 ×2

== ENCOUNTER 2018-04-15 20:50 | Emergency (ER) | payer MEDICARE ==
[2018-04-15 20:59] VITALS: TEMP 97.5
--- NOTE | 2018-04-15 21:30 | ED ---
Chest Pain HPI - General Chief Complaint: Chest Pain Stated Complaint: Chest pain Time Seen by Provider: 04/15/18 21:03 Source: patient Mode of arrival: wheelchair Limitations: no limitations - History of Present Illness MD Complaint: chest pain Onset/Timin -: hour(s) Onset: during rest Pain Location: left chest Pain Radiation: none Severity: moderate Quality: other (Pulling) Consistency: intermittent Improves With: nothing Worsens With: nothing Treatments Prior to Arrival: none - Related Data Home Medications Medication Instructions Recorded Confirmed Atorvastatin [Lipitor] 40 mg PO HS 07/28/17 04/15/18 Clopidogrel [Plavix] 75 mg PO DAILY 07/28/17 04/15/18 Baclofen 10 mg PO TID 12/30/17 04/15/18 LORazepam [Ativan] 0.5 mg PO TID 12/30/17 04/15/18 Previous Rx's Medication Instructions Recorded Aspirin 81 mg PO DAILY chew 08/22/17 Allergies Allergy/AdvReac Type Severity Reaction Status Date / Time adhesive tape Allergy SKIN TEAR Verified 04/15/18 21:16 Review of Systems ROS Statement: Those systems with pertinent positive or pertinent negative responses have been documented in the HPI. ROS Other: All systems not noted in ROS Statement are negative. Constitutional: Denies: fever, chills Respiratory: Denies: cough, dyspnea Cardiovascular: Reports: as per HPI, chest pain. Denies: palpitations, edema, syncope Gastrointestinal: Denies: abdominal pain, nausea, vomiting, melena, hematochezia Genitourinary: Denies: dysuria, hematuria Musculoskeletal: Denies: back pain Skin: Denies: rash Neurological: Denies: headache, weakness, numbness, paresthesias EKG Findings - EKG Results: EKG: interpreted by ERMD, sinus rhythm, normal axis (Normal) EKG shows: bradycardia (Rate 47 bpm) - Blocks, Vida, Hypertrophy, ST Abn: AV and intraventricular conduction: left bundle branch block (fixed/intermittent , complete/incomplete) Past Medical History Past Medical History: Coronary Artery Disease (CAD), Chest Pain / Angina, CVA/ TIA, Hyperlipidemia, Hypertension, Myocardial Infarction ([place]), Osteoarthritis ( [place]), Syncope Additional Past Medical History / Comment(s): Degenerative disc disease, chornic back pain Last Myocardial Infarction Date:: 09/2017 History of Any Multi-Drug Resistant Organisms: None Reported Past Surgical History: Heart Catheterization With Stent, Joint Replacement, Orthopedic Surgery Additional Past Surgical History / Comment(s): Ectopic , loop monitor, 3 stents, Total hip B/L Past Anesthesia/Blood Transfusion Reactions: No Reported Reaction Additional Past Anesthesia/Blood Transfusion Reaction / Comment(s): after hip replacement last time had very slow pulse Date of Last Stent Placement:: 05/2017 Past Psychological History: Anxiety Smoking Status: Former smoker Past Alcohol Use History: None Reported Past Drug Use History: None Reported - Past Family History Mother Family Medical History: Cancer, Hypertension Additional Family Medical History / Comment(s): Bone,blood,pancreatic CA Father Family Medical History: Hypertension, Thyroid Disorder Additional Family Medical History / Comment(s): Small Cell Carcoma CA General Exam Limitations: no limitations General appearance: alert, in no apparent distress Head exam: Present: atraumatic, normocephalic Eye exam: Present: normal appearance. Absent: scleral icterus, conjunctival injection ENT exam: Present: normal oropharynx Respiratory exam: Present: normal lung sounds bilaterally. Absent: respiratory distress, wheezes, rales, rhonchi, stridor Cardiovascular Exam: Present: regular rate, normal rhythm, normal heart sounds. Absent: systolic murmur, diastolic murmur, rubs, gallop GI/Abdominal exam: Present: soft. Absent: distended, tenderness, guarding, rebound, rigid, mass Extremities exam: Present: normal inspection, normal capillary refill. Absent: pedal edema, calf tenderness Back exam: Present: normal inspection Neurological exam: Present: alert Skin exam: Present: warm, dry, intact, normal color. Absent: rash Course Vital Signs 04/15/18 04/15/18 04/15/18 20:56 22:00 23:00 Temperature 97.5 F L Pulse Rate 48 L 42 L 43 L Respiratory 18 21 16 Rate Blood Pressure 170/85 184/96 O2 Sat by Pulse 100 100 100 Oximetry 04/16/18 00:00 Temperature Pulse Rate 46 L Respiratory 18 Rate Blood Pressure 173/86 O2 Sat by Pulse 100 Oximetry Disposition Clinical Impression: Chest pain Disposition: HOME SELF-CARE Condition: Good Instructions: Chest Pain (ED) Is patient prescribed a controlled substance at d/c from ED?: No Referrals: Pinky Gilbert MD [Primary Care Provider] - 1-2 days
[2018-04-15 21:36] LABS: Basophils % (A) 0 %; Eosinophils # (A) 0.2 k/uL (0-0.7); Eosinophils % (A) 3 %; HGB 12.6 gm/dL (11.4-16.0); Lymphocytes # (A) 2.1 k/uL (1.0-4.8); Lymphocytes % (A) 27 %; MCH 28.7 pg (25.0-35.0); MCHC 32.4 g/dL (31.0-37.0); MCV 88.8 fL (80.0-100.0); Mean Platelet Volume 7.4; Monocytes # (A) 0.4 k/uL (0-1.0); Monocytes % (A) 5 %; Neutrophils # (A) 4.9 k/uL (1.3-7.7); Neutrophils % (A) 63 %; Platelet Count 252 k/uL (150-450); RBC 4.39 m/uL (3.80-5.40); RDW 12.9 % (11.5-15.5); WBC 7.7 k/uL (3.8-10.6)
--- NOTE | 2018-04-15 21:37 | XR ---
EXAMINATION TYPE: XR chest 1V portable DATE OF EXAM: 04/15/2018 COMPARISON: Chest x-ray April 02, 2018. HISTORY: Chest pain. TECHNIQUE: Single frontal view of the chest is obtained. FINDINGS: There is no focal air space opacity, pleural effusion, or pneumothorax seen. The cardiac silhouette size is within normal limits. Loop recorder overlies left heart on current study. The oss eous structures are intact. IMPRESSION: No acute process. No significant change from prior.
[2018-04-15 21:47] LABS: ALT 30 U/L (9-52); AST 25 U/L (14-36); Albumin 4.2 g/dL (3.5-5.0); Alkaline Phosphatase 105 U/L (38-126); Anion Gap 10 mmol/L; Blood Urea Nitrogen 11 mg/dL (7-17); Calcium 9.5 mg/dL (8.4-10.2); Carbon Dioxide 24 mmol/L (22-30); Chloride 107 mmol/L (98-107); Glucose 109 mg/dL (74-99); Potassium 3.9 mmol/L (3.5-5.1); Sodium 141 mmol/L (137-145); Total Bilirubin 0.5 mg/dL (0.2-1.3)
[2018-04-15 22:06] LABS: Creatine Kinase 65 U/L (30-135)
[2018-04-15 22:18] LABS: Creatine Kinase MB 0.5 ng/mL (0.0-2.4); Troponin I <0.012 ng/mL (0.000-0.034)
[2018-04-16 01:44] VITALS: RESP 20
[2018-04-16] MEDS ORDERED: ENALAPRILAT 1.25 MG/ML 1 ML VIAL IVP STA (02:19)
[2018-04-16 02:52] VITALS: BP 173/91; PULSE 56
== END 2018-04-16 02:52 | disposition home or self-care (01) ==
LOC: EC 20:50
DX: R07.9 Chest pain, unspecified (principal); I25.119 Atherosclerotic heart disease of native coronary artery with unspecified angina pectoris; E78.5 Hyperlipidemia, unspecified; I25.2 Old myocardial infarction; M19.90 Unspecified osteoarthritis, unspecified site; F41.9 Anxiety disorder, unspecified; Z79.899 Other long term (current) drug therapy; Z91.048 Other nonmedicinal substance allergy status; Z87.891 Personal history of nicotine dependence; Z95.5 Presence of coronary angioplasty implant and graft; Z96.641 Presence of right artificial hip joint; Z86.73 Personal history of transient ischemic attack (TIA), and cerebral infarction without residual deficits
CPT/HCPCS: 36415; 71045; 80053; 82550; 82553; 83735; 84484; 85025; 85379; 93005; 99285

== ENCOUNTER 2018-04-24 14:15 | Emergency (ER) | payer MEDICARE ==
[2018-04-24 14:26] VITALS: TEMP 98
[2018-04-24] MEDS ORDERED: SODIUM CHLORIDE 0.9% 1,000 ML IV STA (14:45)
--- NOTE | 2018-04-24 14:50 | ED ---
Arrhythmia/Palpitations HPI - General Chief Complaint: Arrhythmia/Palpitations Stated Complaint: Palpitations, Time Seen by Provider: 04/24/18 14:29 Source: patient, RN notes reviewed Mode of arrival: ambulatory Limitations: no limitations - History of Present Illness Initial Comments: This is a 8-year-old female presents with complaints of increased heart rate palpitations skipped beats is been going on and off since 1 week ago after she was taken off her Ativan the denies any chest pain shortness breath fevers chills nausea vomiting sweats or other symptoms at this time. She states she was on metoprolol but this dropped her heart rate to much. She does not Ativan for about a year and a half prior to this. MD Complaint: rapid heart beat, "skipped beats" - Related Data Home Medications Medication Instructions Recorded Confirmed Atorvastatin [Lipitor] 40 mg PO HS 07/28/17 04/24/18 Clopidogrel [Plavix] 75 mg PO DAILY 07/28/17 04/24/18 Baclofen 10 mg PO TID 12/30/17 04/24/18 Previous Rx's Medication Instructions Recorded Aspirin 81 mg PO DAILY chew 08/22/17 cloNIDine HCL [Catapres] 0.1 mg PO BID #14 tab 04/24/18 Allergies Allergy/AdvReac Type Severity Reaction Status Date / Time adhesive tape Allergy SKIN TEAR Verified 04/24/18 14:45 Review of Systems ROS Statement: Those systems with pertinent positive or pertinent negative responses have been documented in the HPI. ROS Other: All systems not noted in ROS Statement are negative. Past Medical History Past Medical History: Coronary Artery Disease (CAD), Chest Pain / Angina, CVA/ TIA, Hyperlipidemia, Hypertension, Myocardial Infarction (MA), Osteoarthritis ( OA), Syncope Additional Past Medical History / Comment(s): Degenerative disc disease, chornic back pain Last Myocardial Infarction Date:: 09/2017 History of Any Multi-Drug Resistant Organisms: None Reported Past Surgical History: Heart Catheterization With Stent, Joint Replacement, Orthopedic Surgery Additional Past Surgical History / Comment(s): Ectopic , loop monitor, 3 stents, Total hip B/L Past Anesthesia/Blood Transfusion Reactions: No Reported Reaction Additional Past Anesthesia/Blood Transfusion Reaction / Comment(s): after hip replacement last time had very slow pulse Date of Last Stent Placement:: 05/2017 Past Psychological History: Anxiety Smoking Status: Former smoker Past Alcohol Use History: None Reported Past Drug Use History: None Reported - Past Family History Mother Family Medical History: Cancer, Hypertension Additional Family Medical History / Comment(s): Bone,blood,pancreatic CA Father Family Medical History: Hypertension, Thyroid Disorder Additional Family Medical History / Comment(s): Small Cell Carcoma CA General Exam - General Exam Comments Initial Comments: This a well-developed well-nourished awake alert oriented 3 female Limitations: no limitations General appearance: alert, anxious Head exam: Present: atraumatic, normocephalic, normal inspection Eye exam: Present: normal appearance, PERRL, EOMI. Absent: scleral icterus, conjunctival injection, periorbital swelling ENT exam: Present: normal exam, mucous membranes moist Neck exam: Present: normal inspection, full ROM, other (No stridor JVD or bruits ). Absent: tenderness, meningismus, lymphadenopathy Respiratory exam: Present: normal lung sounds bilaterally. Absent: respiratory distress, wheezes, rales, rhonchi, stridor Cardiovascular Exam: Present: regular rate, normal rhythm, normal heart sounds. Absent: systolic murmur, diastolic murmur, rubs, gallop, clicks GI/Abdominal exam: Present: soft, normal bowel sounds. Absent: distended, tenderness, guarding, rebound, rigid Extremities exam: Present: normal inspection, full ROM, normal capillary refill. Absent: tenderness, pedal edema, joint swelling, calf tenderness Back exam: Present: normal inspection Neurological exam: Present: alert, oriented X3, CN II-XII intact Psychiatric exam: Present: normal affect, normal mood Skin exam: Present: warm, dry, intact, normal color. Absent: rash Course Vital Signs 04/24/18 04/24/18 14:24 15:32 Temperature 98.0 F Pulse Rate 73 65 Respiratory 18 17 Rate Blood Pressure 164/100 202/103 O2 Sat by Pulse 100 100 Oximetry EKG Findings - EKG Results: EKG: interpreted by MAGGI, sinus rhythm (Sinus rhythm a 68 HI interval 158 QRS duration 132 QT since QTC 446/474 by bundle-branch block no acute ST-T wave changes) Medical Decision Making - Medical Decision Making The patient did respond to improvement in blood pressure with drowsy. She will be placed on Catapres twice a day she is a follow-up with her doctor return when necessary she did not have any dysrhythmias that were recorded bowl during her stay. - Lab Data Result diagrams: 04/24/18 14:37 04/24/18 14:37 Lab Results 04/24/18 04/24/18 04/24/18 Range/Units 14:37 14:37 14:37 WBC 5.0 (3.8-10.6) k/uL RBC 4.84 (3.80-5.40) m/uL Hgb 14.0 (11.4-16.0) gm/dL Hct 43.1 (34.0-46.0) % MCV 89.1 (80.0-100.0) fL MCH 29.0 (25.0-35.0) pg MCHC 32.6 (31.0-37.0) g/dL RDW 13.0 (11.5-15.5) % Plt Count 270 (150-450) k/uL Neutrophils % 56 % Lymphocytes % 32 % Monocytes % 6 % Eosinophils % 3 % Basophils % 1 % Neutrophils # 2.8 (1.3-7.7) k/uL Lymphocytes # 1.6 (1.0-4.8) k/uL Monocytes # 0.3 (0-1.0) k/uL Eosinophils # 0.2 (0-0.7) k/uL Basophils # 0.0 (0-0.2) k/uL PT (9.0-12.0) sec INR (<1.2) APTT (22.0-30.0) sec D-Dimer (<0.60) mg/L FEU Sodium 143 (137-145) mmol/L Potassium 4.0 (3.5-5.1) mmol/L Chloride 108 H (98-107) mmol/L Carbon Dioxide 24 (22-30) mmol/L Anion Gap 11 mmol/L BUN 5 L (7-17) mg/dL Creatinine 0.67 (0.52-1.04) mg/dL Est GFR (CKD-EPI)AfAm >90 (>60 ml/min/1.73 sqM) Est GFR (CKD-EPI)NonAf >90 (>60 ml/min/1.73 sqM) Glucose 93 (74-99) mg/dL Calcium 10.4 H (8.4-10.2) mg/dL Magnesium 2.0 (1.6-2.3) mg/dL Total Bilirubin 0.7 (0.2-1.3) mg/dL AST 26 (14-36) U/L ALT 32 (9-52) U/L Alkaline Phosphatase 119 (38-126) U/L Total Creatine Kinase 74 (30-135) U/L CK-MB (CK-2) 1.1 (0.0-2.4) ng/mL CK-MB (CK-2) Rel Index 1.5 Troponin I <0.012 (0.000-0.034) ng/mL Total Protein 8.3 H (6.3-8.2) g/dL Albumin 4.9 (3.5-5.0) g/dL TSH 1.750 (0.465-4.680) mIU/L 04/24/18 Range/Units 14:37 WBC (3.8-10.6) k/uL RBC (3.80-5.40) m/uL Hgb (11.4-16.0) gm/dL Hct (34.0-46.0) % MCV (80.0-100.0) fL MCH (25.0-35.0) pg MCHC (31.0-37.0) g/dL RDW (11.5-15.5) % Plt Count (150-450) k/uL Neutrophils % % Lymphocytes % % Monocytes % % Eosinophils % % Basophils % % Neutrophils # (1.3-7.7) k/uL Lymphocytes # (1.0-4.8) k/uL Monocytes # (0-1.0) k/uL Eosinophils # (0-0.7) k/uL Basophils # (0-0.2) k/uL PT 10.3 (9.0-12.0) sec INR 1.0 (<1.2) APTT 25.3 (22.0-30.0) sec D-Dimer 0.26 (<0.60) mg/L FEU Sodium (137-145) mmol/L Potassium (3.5-5.1) mmol/L Chloride (98-107) mmol/L Carbon Dioxide (22-30) mmol/L Anion Gap mmol/L BUN (7-17) mg/dL Creatinine (0.52-1.04) mg/dL Est GFR (CKD-EPI)AfAm (>60 ml/min/1.73 sqM) Est GFR (CKD-EPI)NonAf (>60 ml/min/1.73 sqM) Glucose (74-99) mg/dL Calcium (8.4-10.2) mg/dL Magnesium (1.6-2.3) mg/dL Total Bilirubin (0.2-1.3) mg/dL AST (14-36) U/L ALT (9-52) U/L Alkaline Phosphatase (38-126) U/L Total Creatine Kinase (30-135) U/L CK-MB (CK-2) (0.0-2.4) ng/mL CK-MB (CK-2) Rel Index Troponin I (0.000-0.034) ng/mL Total Protein (6.3-8.2) g/dL Albumin (3.5-5.0) g/dL TSH (0.465-4.680) mIU/L - Radiology Data Radiology results: report reviewed (Review the imaging shows no acute findings.) , image reviewed Disposition Clinical Impression: Hypertension, Palpitations Disposition: HOME SELF-CARE Condition: Good Instructions: Heart Palpitations (ED), Hypertension (ED) Prescriptions: cloNIDine HCL [Catapres] 0.1 mg PO BID #14 tab Is patient prescribed a controlled substance at d/c from ED?: No Referrals: Pinky Gilbert MD [Primary Care Provider] - 1-2 days
[2018-04-24 14:59] LABS: Basophils % (A) 1 %; Eosinophils # (A) 0.2 k/uL (0-0.7); Eosinophils % (A) 3 %; HCT 43.1 % (34.0-46.0); Lymphocytes # (A) 1.6 k/uL (1.0-4.8); Lymphocytes % (A) 32 %; MCHC 32.6 g/dL (31.0-37.0); MCV 89.1 fL (80.0-100.0); Mean Platelet Volume 7.2; Monocytes # (A) 0.3 k/uL (0-1.0); Monocytes % (A) 6 %; Neutrophils # (A) 2.8 k/uL (1.3-7.7); Neutrophils % (A) 56 %; Platelet Count 270 k/uL (150-450); RBC 4.84 m/uL (3.80-5.40)
--- NOTE | 2018-04-24 15:03 | XR ---
EXAMINATION TYPE: XR chest 2V DATE OF EXAM: 04/24/2018 COMPARISON: 04/15/2018 HISTORY: Chest pain TECHNIQUE: Frontal and lateral views of the chest are obtained. FINDINGS: Heart and mediastinum are normal. Lungs are clear. Diaphragm is normal. There are chest le ads. Bony thorax appears normal. IMPRESSION: Normal chest. No change.
[2018-04-24 15:09] LABS: ALT 32 U/L (9-52); AST 26 U/L (14-36); Albumin 4.9 g/dL (3.5-5.0); Alkaline Phosphatase 119 U/L (38-126); Anion Gap 11 mmol/L; Blood Urea Nitrogen 5 mg/dL (7-17); Calcium 10.4 mg/dL (8.4-10.2); Carbon Dioxide 24 mmol/L (22-30); Chloride 108 mmol/L (98-107); D-Dimer 0.26 mg/L FEU (<0.60); Glucose 93 mg/dL (74-99); Partial Thromboplastin Time 25.3 sec (22.0-30.0); Prothrombin Time 10.3 sec (9.0-12.0); Sodium 143 mmol/L (137-145); Total Bilirubin 0.7 mg/dL (0.2-1.3); Total Protein 8.3 g/dL (6.3-8.2)
[2018-04-24 15:18] LABS: Creatine Kinase 74 U/L (30-135)
[2018-04-24 15:30] LABS: Creatine Kinase MB 1.1 ng/mL (0.0-2.4); Troponin I <0.012 ng/mL (0.000-0.034)
[2018-04-24 15:33] VITALS: PULSE 65; RESP 17
[2018-04-24 15:34] VITALS: BP 202/103
[2018-04-24] MEDS ORDERED: SODIUM CHLORIDE 0.9% 500 ML 500 ML IV STA (15:36)
[2018-04-24] MEDS ORDERED: cloNIDine HCL 0.1 MG TAB PO STA (16:00)
[2018-04-24] MEDS ORDERED: hydrALAZINE HCL 20 MG/ML 1 ML VIAL IVP STA (16:24)
== END 2018-04-24 17:29 | disposition home or self-care (01) ==
LOC: EC 14:15
DX: R00.2 Palpitations (principal); I10 Essential (primary) hypertension; I25.119 Atherosclerotic heart disease of native coronary artery with unspecified angina pectoris; E78.5 Hyperlipidemia, unspecified; I25.2 Old myocardial infarction; M19.90 Unspecified osteoarthritis, unspecified site; Z86.73 Personal history of transient ischemic attack (TIA), and cerebral infarction without residual deficits; Z87.891 Personal history of nicotine dependence; Z79.01 Long term (current) use of anticoagulants; Z79.899 Other long term (current) drug therapy; Z91.048 Other nonmedicinal substance allergy status; Z95.5 Presence of coronary angioplasty implant and graft; Z96.643 Presence of artificial hip joint, bilateral; Z53.8 Procedure and treatment not carried out for other reasons
CPT/HCPCS: 36415; 93005; 85379; 80053; 82550; 82553; 83735; 84443; 84484; 85025; 85610; 85730; 71046; 99285; 96374; 96361 ×3; J0360

== ENCOUNTER 2018-08-28 13:13 | Day surgery (SDC) | payer MEDICARE ==
[2018-08-22 10:03] VITALS: BMI 23.3
[~2018-08-28 13:13] MED LIST changes: +LACTATED RINGERS 1,000 ML IV SCH; +LIDOCAINE 1% 20 ML VIAL (10MG/ML) FOR IV START INTRADERMA PRN; -SODIUM CHLORIDE 0.9% 1,000 ML IV SCH; -ceFAZolin 1,000 MG in SODIUM CHLORIDE 0.9% IRRIGATIO 250 ML IRRIGATION ONE; -ceFAZolin IN SWFI 2 GM/20 ML SYRINGE IVP ONE
[2018-08-28 13:48] VITALS: RESP 16; TEMP 98.3
[2018-08-28] MEDS ORDERED: PROPOFOL 10 MG/ML 20 ML VIAL IV ONE (13:55)
[2018-08-28] MEDS ORDERED: MIDAZOLAM 2 MG/2 ML VIAL ONE (13:55)
[2018-08-28] MEDS ORDERED: fentaNYL (PF) 50 MCG/ML 2 ML AMP ONE (13:55)
--- NOTE | 2018-08-28 14:19 | P.PCN ---
Date of Procedure: 08/28/18 Procedure(s) Performed: Procedure: Colonoscopy and biopsy. Preoperative diagnosis: Screening for neoplasia. Postoperative diagnosis: 1. Sigmoid diverticulosis with no evidence of acute diverticulitis or strictures. 2. Diminutive polyp in the rectum biopsied but no large polyps or cancer. 3. Low grade internal hemorrhoids with no evidence of bleeding at the time of this exam. Preparation: HalfLytely prep. Sedation: Was provided by anesthesia. Brief clinical history: The patient is a 62-year-old female who is scheduled for this evaluation for screening for neoplasia age being her risk factor. She had no prior colonoscopy. No family history of colon cancer. The patient has occasional fresh bleeding per rectum and stools has tested positive for blood in the past. Procedure: With the patient on her left lateral decubitus position and after informed consent and adequate sedation, the perianal area was inspected and it did not show any fissures or fistulas. There were no masses felt on digital rectal examination. The Olympus CFH 190 L video colonoscope was then inserted in the rectum in the usual fashion and advanced to the cecum. There were several diverticular orifices seen scattered in the sigmoid but there was no evidence of acute diverticulitis or strictures. A diminutive polyp was seen in the rectum which was biopsied but there were no large polyps or cancer. I retroflexed the endoscope in the rectum before the endoscope was withdrawn. Low-grade internal hemorrhoids were noted with no evidence of bleeding. The patient tolerated the procedure well. Plan: The patient was reassured. Discussed dietary measures and local care for hemorrhoids. I recommended repeat colonoscopy in 10 years, especially so if the biopsy show hyperplastic polyp. She will follow-up with you as planned.
[2018-08-28 14:46] VITALS: BP 105/71; PULSE 69
== END 2018-08-28 14:35 | disposition home or self-care (01) ==
LOC: ORWHC2ENDO 13:13
DX: Z12.11 Encounter for screening for malignant neoplasm of colon (principal); D12.8 Benign neoplasm of rectum; K57.30 Diverticulosis of large intestine without perforation or abscess without bleeding; K64.8 Other hemorrhoids; I25.2 Old myocardial infarction; I25.119 Atherosclerotic heart disease of native coronary artery with unspecified angina pectoris; I10 Essential (primary) hypertension; E78.5 Hyperlipidemia, unspecified; M19.90 Unspecified osteoarthritis, unspecified site; Z95.5 Presence of coronary angioplasty implant and graft; Z91.048 Other nonmedicinal substance allergy status; Z86.73 Personal history of transient ischemic attack (TIA), and cerebral infarction without residual deficits; Z79.82 Long term (current) use of aspirin; Z79.02 Long term (current) use of antithrombotics/antiplatelets; Z79.899 Other long term (current) drug therapy
CPT/HCPCS: 88305; 45380; J2250; J3010; J2704

== ENCOUNTER → 2018-10-01 | Outpatient (CLI) | payer MEDICARE ==
--- NOTE | 2018-10-02 14:38 | MM ---
Reason for exam: screening (asymptomatic). Last mammogram was performed 1 year ago. History: Patient is postmenopausal and is nulliparous. Physical Findings: A clinical breast exam by your physician is recommended on an annual basis and results should be correlated with mammographic findings. MG 3D Screening Mammo W/Cad Bilateral CC and MLO view(s) were taken. Prior study comparison: September 28, 2017, bilateral MG 3d screening mammo w/cad. December 09, 2014, bilateral MG screening mammo w CAD. The breast tissue is heterogeneously dense. This may lower the sensitivity of mammography. No significant changes when compared with prior studies. ASSESSMENT: Benign, BI-RAD 2 RECOMMENDATION: Routine screening mammogram of both breasts in 1 year.
== END | disposition home or self-care (01) ==
LOC: RADMAMWWP 13:02
PROVIDERS: ATTEND Family Medicine
DX: Z12.31 Encounter for screening mammogram for malignant neoplasm of breast (principal)
CPT/HCPCS: 77063; 77067

== ENCOUNTER → 2018-10-05 | Outpatient (CLI) | payer MEDICARE ==
--- NOTE | 2018-10-06 17:04 | MR ---
EXAMINATION TYPE: MR brain wo/w con DATE OF EXAM: 10/05/2018 COMPARISON: 08/18/2017 HISTORY: Prior on synapse, MCDONALD history of TIA TECHNIQUE: Multiplanar, multisequence images of the brain and brainstem is performed without and with IV contras t, utilizing 6.5ml mL intravenous Gadavist . FINDINGS: There is cerebral cortical atrophy. There is no mass effect nor midline shift. There is no sign of intracranial hemorrhage. There is no evidence of cortical infarct. On the T2 and FLAIR images there are scattered small foci of increased signal in the periventricular white matter. There is some involvement of the centrum semiovale bilaterally. Total number of foci is less than 25. These measure up to 5 mm. The brainstem is intact. Sella turcica appears normal. The contrast images show no pathologic enhancement. There is normal contrast opacification of the ant erior middle and posterior cerebral arteries. There is normal contrast opacification of the venous si nuses. IMPRESSION: Numerous white matter foci are small and predominantly in the parietal lobes could relate to chronic small vessel ischemia. Demyelinating disease also possible. There is not a significant ch elysia compared to last exam.
== END | disposition home or self-care (01) ==
LOC: RADMRIMAIN 17:04
PROVIDERS: ATTEND Family Medicine
DX: R90.89 Other abnormal findings on diagnostic imaging of central nervous system (principal); R51 Headache; Z86.73 Personal history of transient ischemic attack (TIA), and cerebral infarction without residual deficits
CPT/HCPCS: 70553; A9585

== ENCOUNTER 2018-10-15 22:28 | Observation (INO) | payer MEDICARE ==
[2018-10-15] MEDS ORDERED: NITROGLYCERIN OINT 1 INCH/GM PACKET TOPICAL STA (23:03)
[2018-10-15] MEDS ORDERED: ASPIRIN 81 MG PO STA (23:03)
--- NOTE | 2018-10-15 23:09 | ED ---
General Adult HPI - General Chief complaint: Chest Pain Stated complaint: Chest Pain Time Seen by Provider: 10/15/18 22:46 Source: patient, RN notes reviewed Mode of arrival: ambulatory Limitations: no limitations - History of Present Illness Initial comments: Patient is a pleasant 62-year-old female presenting to the emergency Department with complaints of chest discomfort. Onset of symptoms was several hours ago. Patient has had several episodes of discomfort described as tightness. Patient has had some associated sweating and nausea. No dyspnea. Patient believes symptoms may be associated with angina. Patient states she does have history of 3 stents placed previously however discomfort does not feel quite similar to that. No leg pain or leg swelling. No cough or fever. - Related Data Home Medications Medication Instructions Recorded Confirmed Clopidogrel [Plavix] 75 mg PO DAILY 07/28/17 10/15/18 Baclofen 10 mg PO TID PRN 12/30/17 10/15/18 Olmesartan Medoxomil 10 mg PO DAILY 10/15/18 10/15/18 Previous Rx's Medication Instructions Recorded Aspirin 81 mg PO DAILY chew 08/22/17 Allergies Allergy/AdvReac Type Severity Reaction Status Date / Time adhesive tape Allergy SKIN TEAR Verified 10/15/18 22:51 Review of Systems ROS Statement: Those systems with pertinent positive or pertinent negative responses have been documented in the HPI. ROS Other: All systems not noted in ROS Statement are negative. Constitutional: Denies: fever Eyes: Denies: eye pain ENT: Denies: ear pain Respiratory: Denies: cough Cardiovascular: Reports: chest pain Endocrine: Denies: fatigue Gastrointestinal: Reports: nausea. Denies: abdominal pain Genitourinary: Denies: dysuria Musculoskeletal: Denies: back pain Skin: Denies: rash Past Medical History Past Medical History: Coronary Artery Disease (CAD), Chest Pain / Angina, CVA/TIA, Hyperlipidemia, Hypertension, Myocardial Infarction (SD), Osteoarthritis (OA), Syncope Additional Past Medical History / Comment(s): Degenerative disc disease, chRONIC back pain Last Myocardial Infarction Date:: 09/2017 History of Any Multi-Drug Resistant Organisms: None Reported Past Surgical History: Heart Catheterization With Stent, Joint Replacement Additional Past Surgical History / Comment(s): Ectopic , loop monitor, 3 stents, Total hip B/L, Past Anesthesia/Blood Transfusion Reactions: No Reported Reaction Additional Past Anesthesia/Blood Transfusion Reaction / Comment(s): after hip replacement last time had very slow pulse Date of Last Stent Placement:: 05/2017 Past Psychological History: Anxiety Smoking Status: Former smoker Past Alcohol Use History: None Reported Past Drug Use History: None Reported - Past Family History Mother Family Medical History: Cancer, Hypertension Additional Family Medical History / Comment(s): Bone,blood,pancreatic CA Father Family Medical History: Cancer, Hypertension, Thyroid Disorder Additional Family Medical History / Comment(s): Small Cell Carcoma CA General Exam Limitations: no limitations General appearance: alert, in no apparent distress Head exam: Present: atraumatic Eye exam: Present: normal appearance, PERRL ENT exam: Present: normal oropharynx Neck exam: Present: normal inspection Respiratory exam: Present: normal lung sounds bilaterally Cardiovascular Exam: Present: regular rate, normal rhythm Expanded Peripheral pulses: 2+: Radial (R), Radial (L), Dorsalis Pedis (R), Dorsalis Pedis (L) GI/Abdominal exam: Present: soft. Absent: distended, tenderness Extremities exam: Present: normal inspection. Absent: pedal edema, calf tendern ess Neurological exam: Present: alert Psychiatric exam: Present: normal affect, normal mood Skin exam: Present: normal color Course Vital Signs 10/15/18 10/15/18 22:41 23:37 Temperature 97.7 F Pulse Rate 69 60 Respiratory 18 18 Rate Blood Pressure 133/82 120/80 O2 Sat by Pulse 99 97 Oximetry EKG Findings - EKG Comments: EKG Findings:: Since bradycardia 58. MI 168. QRS 134. QT 452. QTC 443. Left axis. Left bundle branch block. No acute ST change. Medical Decision Making - Medical Decision Making Patient reevaluated and resting comfortably in bed, symptom-free at this time. Patient updated on results and plan. Paged Dr. Felder, who will admit covered for Dr. Martinez - Lab Data Result diagrams: 10/15/18 23:20 10/15/18 23:20 Lab Results 10/15/18 10/15/18 10/15/18 Range/Units 23:20 23:20 23:20 WBC 6.5 (3.8-10.6) k/uL RBC 4.11 (3.80-5.40) m/uL Hgb 12.0 (11.4-16.0) gm/dL Hct 36.9 (34.0-46.0) % MCV 89.8 (80.0-100.0) fL MCH 29.1 (25.0-35.0) pg MCHC 32.4 (31.0-37.0) g/dL RDW 12.9 (11.5-15.5) % Plt Count 373 (150-450) k/uL Neutrophils % 59 % Lymphocytes % 30 % Monocytes % 5 % Eosinophils % 4 % Basophils % 1 % Neutrophils # 3.8 (1.3-7.7) k/uL Lymphocytes # 2.0 (1.0-4.8) k/uL Monocytes # 0.3 (0-1.0) k/uL Eosinophils # 0.2 (0-0.7) k/uL Basophils # 0.1 (0-0.2) k/uL PT 9.7 (9.0-12.0) sec INR 0.9 (<1.2) APTT 27.0 (22.0-30.0) sec Sodium 137 (137-145) mmol/L Potassium 4.3 (3.5-5.1) mmol/L Chloride 104 (98-107) mmol/L Carbon Dioxide 25 (22-30) mmol/L Anion Gap 8 mmol/L BUN 9 (7-17) mg/dL Creatinine 0.88 (0.52-1.04) mg/dL Est GFR (CKD-EPI)AfAm 83 (>60 ml/min/1.73 sqM) Est GFR (CKD-EPI)NonAf 72 (>60 ml/min/1.73 sqM) Glucose 99 (74-99) mg/dL Calcium 9.8 (8.4-10.2) mg/dL Magnesium 2.2 (1.6-2.3) mg/dL Total Bilirubin 0.3 (0.2-1.3) mg/dL AST 20 (14-36) U/L ALT 17 (9-52) U/L Alkaline Phosphatase 99 (38-126) U/L Troponin I (0.000-0.034) ng/mL Total Protein 7.3 (6.3-8.2) g/dL Albumin 4.5 (3.5-5.0) g/dL 10/15/18 Range/Units 23:20 WBC (3.8-10.6) k/uL RBC (3.80-5.40) m/uL Hgb (11.4-16.0) gm/dL Hct (34.0-46.0) % MCV (80.0-100.0) fL MCH (25.0-35.0) pg MCHC (31.0-37.0) g/dL RDW (11.5-15.5) % Plt Count (150-450) k/uL Neutrophils % % Lymphocytes % % Monocytes % % Eosinophils % % Basophils % % Neutrophils # (1.3-7.7) k/uL Lymphocytes # (1.0-4.8) k/uL Monocytes # (0-1.0) k/uL Eosinophils # (0-0.7) k/uL Basophils # (0-0.2) k/uL PT (9.0-12.0) sec INR (<1.2) APTT (22.0-30.0) sec Sodium (137-145) mmol/L Potassium (3.5-5.1) mmol/L Chloride (98-107) mmol/L Carbon Dioxide (22-30) mmol/L Anion Gap mmol/L BUN (7-17) mg/dL Creatinine (0.52-1.04) mg/dL Est GFR (CKD-EPI)AfAm (>60 ml/min/1.73 sqM) Est GFR (CKD-EPI)NonAf (>60 ml/min/1.73 sqM) Glucose (74-99) mg/dL Calcium (8.4-10.2) mg/dL Magnesium (1.6-2.3) mg/dL Total Bilirubin (0.2-1.3) mg/dL AST (14-36) U/L ALT (9-52) U/L Alkaline Phosphatase (38-126) U/L Troponin I <0.012 (0.000-0.034) ng/mL Total Protein (6.3-8.2) g/dL Albumin (3.5-5.0) g/dL - Radiology Data Radiology results: image reviewed (Chest x-ray shows no acute process) Disposition Clinical Impression: Chest pain Disposition: ADMITTED IP TO THIS [facility] Is patient prescribed a controlled substance at d/c from ED?: No Referrals: Myles Lamar DO [Primary Care Provider] - 1-2 days Decision Time: 00:13
[2018-10-15 23:28] LABS: Basophils # (A) 0.1 k/uL (0-0.2); Basophils % (A) 1 %; Eosinophils # (A) 0.2 k/uL (0-0.7); Eosinophils % (A) 4 %; HCT 36.9 % (34.0-46.0); Lymphocytes % (A) 30 %; MCH 29.1 pg (25.0-35.0); MCHC 32.4 g/dL (31.0-37.0); MCV 89.8 fL (80.0-100.0); Mean Platelet Volume 6.7; Monocytes # (A) 0.3 k/uL (0-1.0); Monocytes % (A) 5 %; Neutrophils # (A) 3.8 k/uL (1.3-7.7); Neutrophils % (A) 59 %; Platelet Count 373 k/uL (150-450); RBC 4.11 m/uL (3.80-5.40); RDW 12.9 % (11.5-15.5); WBC 6.5 k/uL (3.8-10.6)
[2018-10-15 23:36] LABS: INR 0.9 (<1.2); Prothrombin Time 9.7 sec (9.0-12.0)
--- NOTE | 2018-10-15 23:40 | XR ---
EXAM: XR Chest, 2 Views CLINICAL HISTORY: ITS.REASON XR Reason: Chest Pain TECHNIQUE: Frontal and lateral views of the chest. COMPARISON: No relevant prior studies available. FINDINGS: Lungs: Unremarkable. No consolidation. Pleural space: Unremarkable. No pneumothorax. Heart: No suspicious enlargement. Mediastinum: Unremarkable. Bones/joints: No acute fracture. IMPRESSION: No acute findings.
[2018-10-15 23:42] LABS: Albumin 4.5 g/dL (3.5-5.0); Calcium 9.8 mg/dL (8.4-10.2); Magnesium 2.2 mg/dL (1.6-2.3); Potassium 4.3 mmol/L (3.5-5.1); Total Bilirubin 0.3 mg/dL (0.2-1.3); Total Protein 7.3 g/dL (6.3-8.2)
[2018-10-16] MEDS ORDERED: NITROGLYCERIN SL TABS 0.4 MG TAB SUBLINGUAL PRN (00:14)
[2018-10-16 04:37] VITALS: RESP 16
[2018-10-16] MEDS ORDERED: CLOPIDOGREL 75 MG TAB PO SCH (10:00)
[2018-10-16] MEDS ORDERED: LOSARTAN 50 MG TAB PO SCH (10:00)
--- NOTE | 2018-10-16 10:01 | P.CRDCN ---
History of Present Illness History of present illness: This is a pleasant 62-year-old female past medical history significant for coronary artery disease, hypertension, dyslipidemia, CVA 2018, chronic back pain and tachycardia. She follows in the office with Dr. Granados. We have been asked to see her in consultation for chest pain. She describes a sharp and tight pain in left precordial region that radiates through to the left upper scapular region associated with nausea and diaphoresis. This happened last night at 1800 while sitting down watching television. The discomfort lasted until about 2300 last night with no improvement prompting her to come to ED for evaluation. Upon arrival she was still having discomfort, nitropaste was applied. She did have another episode in the middle of the night and again this morning. Currently chest pain free. She denies associated shortness of breath, dizziness, vomiting or palpitations. EKG reveals left bundle branch block. Chronic and intermittent for the patient. Chest xray negative for an acute cardiopulmonary process. Laboratory data reviewed, WBC 6.5, hemoglobin 12, platelets 373, sodium 137, potassium 4.3, creatinine 0.88, magnesium 2.2, cardiac enzymes negative 2. Current cardiac medications include aspirin 81 mg daily, Plavix 75 mg daily and almost certain 10 mg daily. Most recent echocardiogram obtained December 2017 revealed preserved LV systolic function with ejection fraction 60-65%. Most recent cardiac catheterization May 2017 revealed pain stent in the p roximal and mid RCA with intermediate disease involving the mid to distal RCA unchanged from previous study, patent stent in the distal left circumflex with intermediate disease in the proximal left circumflex unchanged from previous study, no evidence of obstructive disease of the LAD, patent stent to the first diagonal branch of the LAD, normal LVEDP and normal LV systolic function. At the time of my exam: CONSTITUTIONAL: Denies fever. Denies chills. EYES: Denies blurred vision. Denies vision changes. Denies eye pain. EARS, NOSE, MOUTH & THROAT: Denies headache. Denies sore throat. Denies ear pain. CARDIOVASCULAR: Denies chest pain. Denies shortness of breath. Denies orthopnea. Denies PND. Denies palpitations. RESPIRATORY: Denies cough. GASTROINTESTINAL: Denies abdominal pain. Denies diarrhea. Denies constipation. Denies nausea. Denies vomiting. MUSCULOSKELETAL: Denies myalgias. INTEGUMENTARY: Denies pruitis. Denies rash. NEUROLOGIC: Denies numbness. Denies tingling. Denies weakness. PSYCHIATRIC: Denies anxiety. Denies depression. ENDOCRINE: Denies fatigue. Denies weight change. Denies polydipsia. Denies polyurina. GENITOURINARY: Denies burning, hematuria or urgency with micturation. HEMATOLOGIC: Denies history of anemia. Denies bleeding. Blood pressure 112/77 heart rate 66 afebrile maintaining oxygen saturation on room air GENERAL: This is a 62-year-old female in no apparent distress at the time of my examination. HEENT: Head is atraumatic, normocephalic. Pupils are equal, round. Sclerae anicteric. Conjunctivae are clear. Mucous membranes of the mouth are moist. Neck is supple. There is no jugular venous distention. No carotid bruit is heard. LUNGS: Clear to auscultation no wheezes, rales or rhonchi. No chest wall tenderness is noted on palpation or with deep breathing. HEART: Regular rate and rhythm without murmurs, rubs or gallops. S1 and S2 heard. ABDOMEN: Soft, nontender. Bowel sounds are heard. No organomegaly noted. EXTREMITIES: No evidence of peripheral edema and no calf tenderness noted. VASCULAR: Radial and dorsalis pedis pulses palpated, no evidence of clubbing. NEUROLOGIC: Patient is awake, alert and oriented x3. ASSESSMENT Chest pain, atypical for angina. History of coronary artery disease status post multiple stent placements. Recent cardiac catheterization May 2017 revealed stable CAD with no progression of disease and patent stents. Hypertension Dyslipidemia History of CVA PLAN Continue to obtain serial cardiac enzymes to rule out an acute coronary event. Obtain 2-D echocardiogram and Doppler study to assess cardiac structure and function. Increase activity and ambulation in the halls, if no further symptoms of chest discomfort and an acute event has been ruled out she may be discharged home to follow-up with Dr. Granados in the office. Thank you kindly for this consultation. Nurse Practitioner note has been reviewed, I agree with a documented findings and plan of care. Patient was seen and examined. Past Medical History Past Medical History: Coronary Artery Disease (CAD), Chest Pain / Angina, CVA/TIA, Hypertension, Myocardial Infarction ([place]), Osteoarthritis (OA), Syncope Additional Past Medical History / Comment(s): Degenerative disc disease, chRONIC back pain, CVA 07/2017- left with weakness on right Last Myocardial Infarction Date:: 09/2017 History of Any Multi-Drug Resistant Organisms: None Reported Past Surgical History: Heart Catheterization With Stent, Joint Replacement Additional Past Surgical History / Comment(s): Ectopic , loop monitor, 3 stents, Total hip bilat Past Anesthesia/Blood Transfusion Reactions: No Reported Reaction Additional Past Anesthesia/Blood Transfusion Reaction / Comment(s): after hip replacement last time had very slow pulse Date of Last Stent Placement:: 05/2017 Past Psychological History: Anxiety Additional Psychological History / Comment(s): Pt resides alone. Pt normally is independent with her ADls. She drives a car. Smoking Status: Former smoker Past Alcohol Use History: None Reported Additional Past Alcohol Use History / Comment(s): quit smoking November 2016, started smoking at age of 13, smoked 1ppd Past Drug Use History: None Reported - Past Family History Mother Family Medical History: Cancer, Hypertension Additional Family Medical History / Comment(s): Bone,blood,pancreatic CA Father Family Medical History: Cancer, Hypertension, Thyroid Disorder Additional Family Medical History / Comment(s): Small Cell Carcoma CA Medications and Allergies Home Medications Medication Instructions Recorded Confirmed Type Clopidogrel [Plavix] 75 mg PO DAILY 07/28/17 10/15/18 History Aspirin 81 mg PO DAILY chew 08/22/17 10/15/18 Rx Baclofen 10 mg PO TID PRN 12/30/17 10/15/18 History Olmesartan Medoxomil 10 mg PO DAILY 10/15/18 10/15/18 History Allergies Allergy/AdvReac Type Severity Reaction Status Date / Time adhesive tape Allergy SKIN TEAR Verified 10/15/18 22:51 Physical Exam Vitals: Vital Signs Temp Pulse Resp BP Pulse Ox 10/16/18 07:17 97 10/16/18 04:36 97.9 F 63 16 109/72 97 10/16/18 03:19 57 L 17 103/70 98 10/16/18 01:29 67 18 113/71 98 10/15/18 23:37 60 18 120/80 97 10/15/18 22:41 97.7 F 69 18 133/82 99 Intake and Output 10/15/18 10/16/18 10/16/18 22:59 06:59 14:59 Other: Weight 61.689 kg Results 10/15/18 23:20 10/15/18 23:20 Cardiac Enzymes 10/15/18 10/15/18 10/16/18 Range/Units 23:20 23:20 05:38 AST 20 (14-36) U/L Troponin I <0.012 <0.012 (0.000-0.034) ng/mL Coagulation 10/15/18 Range/Units 23:20 PT 9.7 (9.0-12.0) sec APTT 27.0 (22.0-30.0) sec CBC 10/15/18 Range/Units 23:20 WBC 6.5 (3.8-10.6) k/uL RBC 4.11 (3.80-5.40) m/uL Hgb 12.0 (11.4-16.0) gm/dL Hct 36.9 (34.0-46.0) % Plt Count 373 (150-450) k/uL Comprehensive Metabolic Panel 10/15/18 Range/Units 23:20 Sodium 137 (137-145) mmol/L Potassium 4.3 (3.5-5.1) mmol/L Chloride 104 (98-107) mmol/L Carbon Dioxide 25 (22-30) mmol/L BUN 9 (7-17) mg/dL Creatinine 0.88 (0.52-1.04) mg/dL Glucose 99 (74-99) mg/dL Calcium 9.8 (8.4-10.2) mg/dL AST 20 (14-36) U/L ALT 17 (9-52) U/L Alkaline Phosphatase 99 (38-126) U/L Total Protein 7.3 (6.3-8.2) g/dL Albumin 4.5 (3.5-5.0) g/dL Current Medications Generic Name Dose Route Start Last Admin Trade Name Freq PRN Reason Stop Dose Admin Aspirin 325 mg 10/17/18 09:00 Aspirin PO DAILY DORIS Nitroglycerin 0.4 mg 10/16/18 00:14 Nitrostat SUBLINGUAL Q5M PRN Chest Pain Sodium Chloride 10 ml 10/16/18 09:00 Saline Flush IV BID DORIS Intake and Output 10/15/18 10/16/18 10/16/18 22:59 06:59 14:59 Other: Weight 61.689 kg 10/15/18 23:20 10/15/18 23:20
[2018-10-16 11:14] LABS: Cholesterol 220 mg/dL (<200); HDL Cholesterol 74 mg/dL (40-60); LDL Cholesterol,Calculated 133 mg/dL (0-99); Triglycerides 67 mg/dL (<150)
[2018-10-16 12:32] VITALS: BP 143/88; PULSE 77; TEMP 97.5
--- NOTE | 2018-10-16 14:22 | ECHOF ---
Referral Reason:cp MEASUREMENTS -------- HEIGHT: 162.6 cm WEIGHT: 61.7 kg BP: 109/72 RVIDd: 2.8 cm (< 3.3) IVSd: 1.0 cm (0.6 - 1.1) LVIDd: 3.7 cm (3.9 - 5.3) LVPWd: 1.0 cm (0.6 - 1.1) IVSs: 1.3 cm LVIDs: 2.7 cm LVPWs: 1.3 cm Ao Diam: 2.7 cm (2.0 - 3.7) AV Cusp: 1.5 cm (1.5 - 2.6) LA Diam: 3.0 cm (2.7 - 3.8) MV EXCURSION: 13.970 mm (> 18.000) MV EF SLOPE: 53 mm/s (70 - 150) EPSS: 0.4 cm MV E Kayden: 0.94 m/s MV DecT: 328 ms MV A Kayden: 0.95 m/s MV E/A Ratio: 0.99 RAP: 5.00 mmHg RVSP: 37.87 mmHg FINDINGS -------- Sinus rhythm. This was a technically good study. LV size, wall thickness and systolic function are normal, with an EF greater than 55%. The right ventricle is normal in size. The left atrium is normal in size. The right atrial size is normal. The aortic valve is trileaflet, and appears structurally normal. No aortic stenosis or regurgitation. The mitral valve is normal. Mild mitral regurgitation is present. The tricuspid valve appears structurally normal. Mild tricuspid regurgitation present. There is m ild pulmonary hypertension. The right ventricular systolic pressure, as measured by Doppler, is 37. 87mmHg. There is no pulmonic regurgitation present. There is no pericardial effusion. CONCLUSIONS -------- 1. Sinus rhythm. 2. This was a technically good study. 3. LV size, wall thickness and systolic function are normal, with an EF greater than 55%. 4. The left atrium is normal in size. 5. The aortic valve is trileaflet, and appears structurally normal. No aortic stenosis or regurgitati on. 6. The mitral valve is normal. 7. Mild mitral regurgitation is present. 8. The tricuspid valve appears structurally normal. 9. Mild tricuspid regurgitation present. 10. There is mild pulmonary hypertension. 11. There is no pulmonic regurgitation present. 12. There is no pericardial effusion. DIRECTOR NETWORK DEVELOPMENT: Mauro Grace [facility] RT(N)
[2018-10-16 16:10] VITALS: BMI 23.3
--- NOTE | 2018-10-17 00:17 | P.HPIM ---
History of Present Illness H&P Date: 10/16/18 Chief Complaint: Chest pain Is a 62-year-old female with a known history of coronary artery disease with stent placement, hypertension, dyslipidemia, CVA 2018, chronic back pain and tachycardia came to ER with complaints of left precordial chest pain/tightness or squeezing sensation and remained on the left upper scapular region. Patient says that pain is associated with nausea vomiting and diaphoresis. Patient was sitting and watching television yesterday evening around 6 PM when the pain started. Pain did not improve until 11 PM yesterday and patient came to ER for evaluation. Denied any complaints of shortness of breath associated. No headache or dizziness lightheadedness. No orthopnea no PND. EKG showed left bundle branch block. Chest x-ray showed no acute cardio pulmonary process Troponin 2 negative Most recent echocardiogram obtained December 2017 revealed preserved LV systolic function with ejection fraction 60-65%. Most recent cardiac catheterization May 2017 revealed pain stent in the proximal and mid RCA with intermediate disease involving the mid to distal RCA unchanged from previous study, patent stent in the distal left circumflex with intermediate disease in the proximal left circumflex unchanged from previous study, no evidence of obstructive disease of the LAD, patent stent to the first diagonal branch of the LAD, normal LVEDP and normal LV systolic function. Review of Systems Constitutional: Patient denies any fever or chills . No generalized weakness or weight loss. Abdomen: Patient denied nausea vomiting and diarrhea and abdominal pain. Cardiovascular: Patient denies any chest pain or short of breath no palpitations. Respiratory: patient denied any cough is from production. No shortness of breath Neurologic: Patient denied any numbness or tingling headache. Musculoskeletal: Patient denies any complaints of joint swelling or deformity. Skin: Negative Psychiatric: Negative Endocrine: No heat or cold intolerance. No recent weight gain. Genitourinary: No dysuria or hematuria. All other 14 point ROS negative except the above Past Medical History Past Medical History: Coronary Artery Disease (CAD), Chest Pain / Angina, CVA/TIA, Hypertension, Myocardial Infarction ([place]), Osteoarthritis (OA), Syncope Additional Past Medical History / Comment(s): Degenerative disc disease, chRONIC back pain, CVA 07/2017- left with weakness on right Last Myocardial Infarction Date:: 09/2017 History of Any Multi-Drug Resistant Organisms: None Reported Past Surgical History: Heart Catheterization With Stent, Joint Replacement Additional Past Surgical History / Comment(s): Ectopic , loop monitor, 3 stents, Total hip bilat Past Anesthesia/Blood Transfusion Reactions: No Reported Reaction Additional Past Anesthesia/Blood Transfusion Reaction / Comment(s): after hip replacement last time had very slow pulse Date of Last Stent Placement:: 05/2017 Past Psychological History: Anxiety Additional Psychological History / Comment(s): Pt resides alone. Pt normally is independent with her ADls. She drives a car. Smoking Status: Former smoker Past Alcohol Use History: None Reported Additional Past Alcohol Use History / Comment(s): quit smoking November 2016, started smoking at age of 13, smoked 1ppd Past Drug Use History: None Reported - Past Family History Mother Family Medical History: Cancer, Hypertension Additional Family Medical History / Comment(s): Bone,blood,pancreatic CA Father Family Medical History: Cancer, Hypertension, Thyroid Disorder Additional Family Medical History / Comment(s): Small Cell Carcoma [place] Medications and Allergies Home Medications Medication Instructions Recorded Confirmed Type Clopidogrel [Plavix] 75 mg PO DAILY 07/28/17 10/15/18 History Aspirin 81 mg PO DAILY chew 08/22/17 10/15/18 Rx Baclofen 10 mg PO TID PRN 12/30/17 10/15/18 History Olmesartan Medoxomil 10 mg PO DAILY 10/15/18 10/15/18 History Nitroglycerin Sl Tabs [Nitrostat] 0.4 mg SUBLINGUAL Q5M PRN #30 tab 10/16/18 Rx Allergies Allergy/AdvReac Type Severity Reaction Status Date / Time adhesive tape Allergy SKIN TEAR Verified 10/15/18 22:51 Physical Exam Vitals: Vital Signs Temp Pulse Pulse Resp BP BP Pulse Ox 10/16/18 08:00 16 10/16/18 07:28 97.8 F 66 16 112/77 98 10/16/18 07:17 97 10/16/18 04:36 97.9 F 63 16 109/72 97 10/16/18 03:19 57 L 17 103/70 98 10/16/18 01:29 67 18 113/71 98 10/15/18 23:37 60 18 120/80 97 10/15/18 22:41 97.7 F 69 18 133/82 99 Intake and Output 10/15/18 10/16/18 10/16/18 22:59 06:59 14:59 Other: Voiding Method Toilet Weight 61.689 kg PHYSICAL EXAMINATION: Patient is lying in the bed comfortably, no acute distress, awake alert and oriented.. HEENT: Normocephalic. Neck is supple. Pupils reactive. Nostrils clear. Oral cavity is moist. Ears reveal no drainage. Neck reveals no JVD, carotid bruits, or thyromegaly. CHEST EXAMINATION: Trachea is central. Symmetrical expansion. Lung cervantes clear to auscultation and percussion. CARDIAC: Normal S1, S2 with no gallops. No murmurs ABDOMEN: Soft. Bowel sounds normal. No organomegaly. No abdominal bruits. Extremities: reveal no edema. No clubbing or cyanosis Neurologically awake, alert, oriented x3 with well-coordinated movements. No focal deficits noted Skin: No rash or skin lesions. Psychiatric: Coperative. Nonsuicidal Musculoskeletal: No joint swelling or deformity. Normal range of motion. Results CBC & Chem 7: 10/15/18 23:20 10/15/18 23:20 Labs: Abnormal Lab Results - Last 24 Hours (Table) 10/16/18 Range/Units 05:38 Cholesterol 220 H (<200) mg/dL LDL Cholesterol, Calc 133 H (0-99) mg/dL HDL Cholesterol 74 H (40-60) mg/dL Thrombosis Risk Factor Assmnt - DVT/VTE Prophylaxis DVT/VTE Prophylaxis: Pharmacologic Prophylaxis ordered - Choose All That Apply Any of the Below Risk Factors Present?: Yes Each Factor Represents 1 point: Age 41-60 years Other Risk Factors: No Other congenital or acquired thrombophilia - If yes, enter type in comment: No Thrombosis Risk Factor Assessment Total Risk Factor Score: 1 Thrombosis Risk Factor Assessment Level: Low Risk Assessment and Plan Assessment: Atypical chest pain. Ruled out ACS. History of coronary disease and multiple stents placement. Most recent cardiac cath was in 2018 showed stable CAD with no progression of disease and patent stents.. Hypertension Hyperlipidemia History of CVA DVT prophylaxis Plan: Patient be continued on telemetry monitoring. Serial troponins 3 negative. Cardiology has seen the patient and recommended 2-D echocardiogram(LV function and wall motion abnormalities. Otherwise patient is currently chest pain-free. Continue the current home medications and follow closely. Time with Patient: Greater than 30
--- NOTE | 2018-10-17 00:19 | P.DS ---
Providers Date of admission: 10/16/18 00:15 Expected date of discharge: 10/16/18 Attending physician: Kamran Felder Consults: 10/16/18 00:14 Consult Physician Urgent Consulting Provider: Yves Orellana Consult Reason/Comments: cp Do you want consulting provider notified?: Yes [facility] [place] [facility] Course: Discharge diagnosis Atypical chest pain. Ruled out ACS. History of coronary disease and multiple stents placement. Most recent cardiac cath was in 2018 showed stable CAD with no progression of disease and patent stents.. Hypertension Hyperlipidemia History of CVA DVT prophylaxis Hospital course Patient Is a 62-year-old female with a known history of coronary artery disease with stent placement, hypertension, dyslipidemia, CVA 2018, chronic back pain and tachycardia came to ER with complaints of left precordial chest pain/tightness or squeezing sensation and remained on the left upper scapular region. Patient says that pain is associated with nausea vomiting and diaphoresis. Patient was sitting and watching television yesterday evening around 6 PM when the pain started. Pain did not improve until 11 PM yesterday and patient came to ER for evaluation. Denied any complaints of shortness of breath associated. No headache or dizziness lightheadedness. No orthopnea no PND. EKG showed left bundle branch block. Chest x-ray showed no acute cardio pulmonary process Troponin 2 negative Patient be continued on telemetry monitoring. Serial troponins 3 negative. Cardiology has seen the patient and recommended 2-D echocardiogram(LV function and wall motion abnormalities. Otherwise patient is currently chest pain-free. 2-D echo cardiac exam showed normal ejection fraction and no wall motion abnormalities. Patient otherwise stable to be discharged home. Discharge physical examination was done and vitals reviewed. Vital Signs - 24 hr 10/16/18 10/16/18 10/16/18 01:29 03:19 04:36 Temperature 97.9 F Pulse Rate 67 57 L 63 Pulse Rate [ Pulse Oximetery ] Respiratory 18 17 16 Rate Blood Pressure 113/71 103/70 109/72 Blood Pressure [Right Arm] O2 Sat by Pulse 98 98 97 Oximetry 10/16/18 10/16/18 10/16/18 07:17 07:28 08:00 Temperature 97.8 F Pulse Rate Pulse Rate [ 66 Pulse Oximetery ] Respiratory 16 16 Rate Blood Pressure Blood Pressure 112/77 [Right Arm] O2 Sat by Pulse 97 98 Oximetry 10/16/18 12:00 Temperature 97.5 F L Pulse Rate Pulse Rate [ 77 Pulse Oximetery ] Respiratory 16 Rate Blood Pressure Blood Pressure 143/88 [Right Arm] O2 Sat by Pulse 100 Oximetry Patient Condition at Discharge: Fair Plan - Discharge Summary Discharge Rx Participant: No New Discharge Prescriptions: New Nitroglycerin Sl Tabs [Nitrostat] 0.4 mg SUBLINGUAL Q5M PRN #30 tab PRN Reason: Chest Pain Continue Clopidogrel [Plavix] 75 mg PO DAILY Aspirin 81 mg PO DAILY chew Baclofen 10 mg PO TID PRN PRN Reason: Muscle Spasm Olmesartan Medoxomil 10 mg PO DAILY Discharge Medication List Clopidogrel [Plavix] 75 mg PO DAILY 07/28/17 [History] Aspirin 81 mg PO DAILY chew 08/22/17 [Rx] Baclofen 10 mg PO TID PRN 12/30/17 [History] Olmesartan Medoxomil 10 mg PO DAILY 10/15/18 [History] Nitroglycerin Sl Tabs [Nitrostat] 0.4 mg SUBLINGUAL Q5M PRN #30 tab 10/16/18 [Rx] Follow up Appointment(s)/Referral(s): Rhett Granados MD [STAFF PHYSICIAN] - 10/30/18 4:30 pm Myles Lamar DO [Primary Care Provider] - 1-2 days Discharge Disposition: HOME SELF-CARE
[2018-10-17] MEDS ORDERED: ASPIRIN 325 MG TAB PO SCH (09:00)
[2018-10-17] MEDS ORDERED: ASPIRIN 81 MG PO SCH (09:00)
== END 2018-10-16 15:17 | disposition home or self-care (01) ==
LOC: EC 22:28 → 1SOBS 10-16 00:15
PROVIDERS: ADMIT Internal Medicine; ATTEND Internal Medicine
DX: R07.89 Other chest pain (principal); I25.10 Atherosclerotic heart disease of native coronary artery without angina pectoris; I10 Essential (primary) hypertension; E78.5 Hyperlipidemia, unspecified; M19.90 Unspecified osteoarthritis, unspecified site; G89.29 Other chronic pain; M54.9 Dorsalgia, unspecified; I44.7 Left bundle-branch block, unspecified; R61 Generalized hyperhidrosis; R11.2 Nausea with vomiting, unspecified; R00.0 Tachycardia, unspecified; F41.9 Anxiety disorder, unspecified; I69.351 Hemiplegia and hemiparesis following cerebral infarction affecting right dominant side; Z79.02 Long term (current) use of antithrombotics/antiplatelets; Z79.82 Long term (current) use of aspirin; Z79.899 Other long term (current) drug therapy; Z91.048 Other nonmedicinal substance allergy status; I25.2 Old myocardial infarction; Z95.5 Presence of coronary angioplasty implant and graft; Z87.891 Personal history of nicotine dependence; Z86.79 Personal history of other diseases of the circulatory system; Z96.643 Presence of artificial hip joint, bilateral; Z80.0 Family history of malignant neoplasm of digestive organs; Z82.49 Family history of ischemic heart disease and other diseases of the circulatory system; Z80.6 Family history of leukemia; Z80.8 Family history of malignant neoplasm of other organs or systems; Z83.49 Family history of other endocrine, nutritional and metabolic diseases
CPT/HCPCS: 99285; 36415; 94760; 93306; 80061; 80053; 83735; 84484 ×2; 85025; 85610; 85730; 71046; G0378

== ENCOUNTER 2018-10-28 22:32 | Observation (INO) | payer MEDICARE ==
[2018-10-28 23:53] LABS: Basophils # (A) 0.1 k/uL (0-0.2); Basophils % (A) 1 %; Eosinophils # (A) 0.3 k/uL (0-0.7); Eosinophils % (A) 4 %; HCT 34.4 % (34.0-46.0); HGB 11.3 gm/dL (11.4-16.0); Lymphocytes # (A) 2.1 k/uL (1.0-4.8); Lymphocytes % (A) 29 %; MCH 29.3 pg (25.0-35.0); MCHC 32.9 g/dL (31.0-37.0); MCV 89.2 fL (80.0-100.0); Mean Platelet Volume 6.8; Monocytes # (A) 0.4 k/uL (0-1.0); Monocytes % (A) 5 %; Neutrophils # (A) 4.2 k/uL (1.3-7.7); Neutrophils % (A) 59 %; Platelet Count 318 k/uL (150-450); RBC 3.86 m/uL (3.80-5.40); RDW 12.7 % (11.5-15.5); WBC 7.1 k/uL (3.8-10.6)
[2018-10-29] MEDS ORDERED: ASPIRIN 325 MG TAB PO STA ×2 (00:03→00:58)
[2018-10-29 00:04] LABS: INR 0.9 (<1.2); Partial Thromboplastin Time 26.6 sec (22.0-30.0); Prothrombin Time 9.8 sec (9.0-12.0)
[2018-10-29 00:05] LABS: Albumin 4.2 g/dL (3.5-5.0); Calcium 9.5 mg/dL (8.4-10.2); Magnesium 1.9 mg/dL (1.6-2.3); Potassium 3.8 mmol/L (3.5-5.1); Total Bilirubin 0.2 mg/dL (0.2-1.3); Total Protein 6.8 g/dL (6.3-8.2)
--- NOTE | 2018-10-29 00:05 | ED ---
Chest Pain HPI - General Chief Complaint: Chest Pain Stated Complaint: Chest and abdominal pain Time Seen by Provider: 10/28/18 23:21 Source: patient Mode of arrival: ambulatory Limitations: no limitations - History of Present Illness Initial Comments: 62-year-old female presenting with substernal chest pressure accompanied by nausea, palpitations, lightheadedness that started at rest, and resolved one hour prior to being seen. She has a history of 3 stents the last one placed in 2018. She denies a history of CHF but states she was recently placed on Lasix. She's been compliant with her home medications. - Related Data Home Medications Medication Instructions Recorded Confirmed Clopidogrel [Plavix] 75 mg PO DAILY 07/28/17 10/28/18 Baclofen 10 mg PO TID PRN 12/30/17 10/28/18 Olmesartan Medoxomil 10 mg PO DAILY 10/15/18 10/28/18 Hydrochlorothiazide 12.5 mg PO DAILY 10/28/18 10/28/18 Previous Rx's Medication Instructions Recorded Aspirin 81 mg PO DAILY chew 08/22/17 Nitroglycerin Sl Tabs [Nitrostat] 0.4 mg SUBLINGUAL Q5M PRN #30 tab 10/16/18 Allergies Allergy/AdvReac Type Severity Reaction Status Date / Time adhesive tape Allergy SKIN TEAR Verified 10/28/18 23:25 Review of Systems ROS Statement: Those systems with pertinent positive or pertinent negative responses have been documented in the HPI. Review of Systems Constitutional: Denies fever, chills Eyes: Denies change in vision, Denies pain Ears, nose, mouth, throat: Denies headaches, Denies sore throat Cardiovascular: Positive chest pain. Positive palpitations. Positive edema Respiratory: Denies shortness of breath, Denies cough Gastrointestinal: Denies abdominal pain. Positive nausea. Denies vomiting, diarrhea. Genitourinary: Denies hematuria, Denies infections Musculoskeletal: Denies pain, Integumentary: Denies rash Neurological: Denies headache, focal weakness, focal numbness Psychiatric: Denies anxiety, Denies depression Hematologic/Lymphatic: Denies easy bleeding or bruising ROS Other: All systems not noted in ROS Statement are negative. EKG Findings - EKG Comments: EKG Findings:: EKG shows sinus bradycardia with a left bundle branch block at a rate of 51 bpm. Similar to 10/15/2018 Past Medical History Past Medical History: Coronary Artery Disease (CAD), Chest Pain / Angina, CVA/TIA, Hypertension, Myocardial Infarction ([place]), Osteoarthritis (OA), Syncope Additional Past Medical History / Comment(s): Degenerative disc disease, chRONIC back pain, CVA 07/2017- left with weakness on right Last Myocardial Infarction Date:: 09/2017 History of Any Multi-Drug Resistant Organisms: None Reported Past Surgical History: Heart Catheterization With Stent, Joint Replacement Additional Past Surgical History / Comment(s): Ectopic , loop monitor, 3 stents, Total hip bilat Past Anesthesia/Blood Transfusion Reactions: No Reported Reaction Additional Past Anesthesia/Blood Transfusion Reaction / Comment(s): after hip replacement last time had very slow pulse Date of Last Stent Placement:: 05/2017 Past Psychological History: Anxiety Smoking Status: Former smoker Past Alcohol Use History: None Reported Past Drug Use History: None Reported - Past Family History Mother Family Medical History: Cancer, Hypertension Additional Family Medical History / Comment(s): Bone,blood,pancreatic CA Father Family Medical History: Cancer, Hypertension, Thyroid Disorder Additional Family Medical History / Comment(s): Small Cell Carcoma CA General Exam - General Exam Comments Initial Comments: General: Awake, alert, No acute Distress HENT: Normocephalic. Atraumatic Eyes: PERRL. EOMI. No scleral icterus. No injected conjunctiva Neck: Full ROM Chest/Lungs: Clear to auscultation bilaterally. No wheezing, rhonchi, or rales Cardiac: Regular rate, rhythm. No murmurs or rubs. Mild bilateral lower extremity edema. Abdomen/GI: Soft, nontender, nondistended. No rebound, guarding, or rigidity. Musculoskeletal: Full ROM Skin: Warm, dry, intact Neurologic: A/Ox3, no weakness, no sensory deficit, no abnormal gait, no coordination deficit Limitations: no limitations Course Vital Signs 10/28/18 22:50 Temperature 98.3 F Pulse Rate 58 L Respiratory 16 Rate Blood Pressure 124/79 O2 Sat by Pulse 97 Oximetry Chest Pain MDM - MDM 8-year-old female presenting with chest pain. Initial exam the patient is awake, alert, no acute distress. VSS. Patient states she was still having chest pain while in the waiting room now that she is in in her room and has resolved. Patient states she was seen last week for chest pain and states this is not similar, however she found it to be concerning. Her laboratory workup was negative for acute process. EKG was unchanged from prior, her my concern is that this is the second time the patient is presents the emergency department within 1 week for chest pain and she has not had a recent stress test. Her appointment with Dr. Granados is not until Monday. HEART score 4. The patient is agreeable to admission for stress testing in the morning. She will be admitted under Dr. Russell. Disposition Clinical Impression: Chest pain Disposition: ADMITTED IP TO THIS HOSP Is patient prescribed a controlled substance at d/c from ED?: No Referrals: Myles Lamar DO [Primary Care Provider] - 1-2 days Decision to Admit Reason: Admit from EC Decision Date: 10/29/18 Decision Time: 00:55
--- NOTE | 2018-10-29 00:24 | XR ---
EXAMINATION TYPE: XR chest 2V DATE OF EXAM: 10/28/2018 COMPARISON: 10/15/2018 HISTORY: 62-year-old female with chest pain TECHNIQUE: PA and lateral views FINDINGS: The cardiomediastinal silhouette, aorta, and pulmonary vasculature are within normal limits. Mild int erstitial prominence has a chronic appearance. Lungs and pleural spaces are clear. IMPRESSION: Chronic changes without acute cardiopulmonary process.
[2018-10-29] MEDS ORDERED: MORPHINE SULFATE 4 MG/ML SYRINGE IV PRN (00:56)
[2018-10-29] MEDS ORDERED: NALOXONE 0.4 MG/ML 1 ML VIAL IV PRN (00:56)
[2018-10-29] MEDS ORDERED: ACETAMINOPHEN TAB 325 MG TAB PO PRN (00:56)
[2018-10-29] MEDS ORDERED: BACLOFEN 10 MG TAB PO PRN (00:58)
[2018-10-29] MEDS ORDERED: NITROGLYCERIN SL TABS 0.4 MG TAB SUBLINGUAL PRN (00:58)
[2018-10-29 02:42] VITALS: BMI 23.6
[2018-10-29] MEDS ORDERED: HYDROCHLOROTHIAZIDE 12.5 MG CAP PO SCH (09:00)
[2018-10-29] MEDS ORDERED: CLOPIDOGREL 75 MG TAB PO SCH (09:00)
[2018-10-29] MEDS ORDERED: LOSARTAN 50 MG TAB PO SCH (09:00)
[2018-10-29 09:07] VITALS: RESP 16
[2018-10-29 11:40] VITALS: BP 112/77; PULSE 56; TEMP 97.5
--- NOTE | 2018-10-29 12:50 | P.CRDCN ---
History of Present Illness History of present illness: This is a pleasant 62-year-old female past medical history significant for coronary artery disease, hypertension, dyslipidemia, CVA 2018, chronic back pain and tachycardia. She follows in the office with Dr. Granados. We have been asked to see her in consultation for chest pain. She describes a squeezing sensation intermittently in the mid-sternal region with radiation to the right arm and right leg. This occurred at rest and was associated with mild light headed feeling, palpitations and nausea. No vomiting. This went off and on for a couple hours prior to arrival to the hospital. She also states she has been feeling increased pain in the left lumbar region that her prescribed baclofen is no longer helping. She denies shortness of breath. She was seen here earlier this month with a similar episode. Echo obtained on that admission revealed preserved LV systolic function with EF 55-60%. She has been following closely with her PCP for lower extremity swelling and was recently started on hydrochlorothiazide. EKG reveals left bundle branch block. Chronic and intermittent for the patient. Chest xray negative for an acute cardiopulmonary process. Laboratory data reviewed, WBC 7.1, hemoglobin 11.3, platelets 318, sodium 136, potassium 3.8, creatinine 0.92, magnesium 1.9, cardiac enzymes negative 2. Current cardiac medications include aspirin 81 mg daily, Plavix 75 mg daily, and olmesartan 10 mg daily. Most recent cardiac catheterization May 2017 revealed pain stent in the proximal and mid RCA with intermediate disease involving the mid to distal RCA unchanged from previous study, patent stent in the distal left circumflex with intermediate disease in the proximal left circumflex unchanged from previous study, no evidence of obstructive disease of the LAD, patent stent to the first diagonal branch of the LAD, normal LVEDP and normal LV systolic function. At the time of my exam: CONSTITUTIONAL: Denies fever. Denies chills. EYES: Denies blurred vision. Denies vision changes. Denies eye pain. EARS, NOSE, MOUTH & THROAT: Denies headache. Denies sore throat. Denies ear pain. CARDIOVASCULAR: Denies chest pain. Denies shortness of breath. Denies orthopnea. Denies PND. Denies palpitations. RESPIRATORY: Denies cough. GASTROINTESTINAL: Denies abdominal pain. Denies diarrhea. Denies constipation. Denies nausea. Denies vomiting. MUSCULOSKELETAL: Denies myalgias. INTEGUMENTARY: Denies pruitis. Denies rash. NEUROLOGIC: Denies numbness. Denies tingling. Denies weakness. PSYCHIATRIC: Denies anxiety. Denies depression. ENDOCRINE: Denies fatigue. Denies weight change. Denies polydipsia. Denies polyurina. GENITOURINARY: Denies burning, hematuria or urgency with micturation. HEMATOLOGIC: Denies history of anemia. Denies bleeding. Blood pressure 112/77 heart rate 56 afebrile maintaining oxygen saturation on room air GENERAL: This is a 62-year-old female in no apparent distress at the time of my examination. HEENT: Head is atraumatic, normocephalic. Pupils are equal, round. Sclerae anicteric. Conjunctivae are clear. Mucous membranes of the mouth are moist. Neck is supple. There is no jugular venous distention. No carotid bruit is heard. LUNGS: Clear to auscultation no wheezes, rales or rhonchi. No chest wall tenderness is noted on palpation or with deep breathing. HEART: Regular rate and rhythm without murmurs, rubs or gallops. S1 and S2 heard. ABDOMEN: Soft, nontender. Bowel sounds are heard. No organomegaly noted. EXTREMITIES: Trace bilateral lower extremity non-pitting edema and no calf tenderness noted. VASCULAR: Radial and dorsalis pedis pulses palpated, no evidence of clubbing. NEUROLOGIC: Patient is awake, alert and oriented x3. ASSESSMENT Chest pain, atypical for angina. History of coronary artery disease status post multiple stent placements. Recent cardiac catheterization May 2017 revealed stable CAD with no progression of disease and patent stents. Hypertension Dyslipidemia History of CVA PLAN Discussed with the patient the need for stress testing and she states she has an appointment in the office with Dr. Granados tomorrow and would prefer to do the stress testing in the office. We are agreeable to this plan once an acute coronary event has been ruled out. Nurse Practitioner note has been reviewed, I agree with a documented findings and plan of care. Patient was seen and examined. Past Medical History Past Medical History: Coronary Artery Disease (CAD), Chest Pain / Angina, CVA/TIA, Hypertension, Myocardial Infarction ([place]), Osteoarthritis (OA), Syncope Additional Past Medical History / Comment(s): Degenerative disc disease, chRONIC back pain, CVA 07/2017- left with weakness on right Last Myocardial Infarction Date:: 09/2017 History of Any Multi-Drug Resistant Organisms: None Reported Past Surgical History: Heart Catheterization With Stent, Joint Replacement Additional Past Surgical History / Comment(s): Ectopic , loop monitor, 3 stents, Total hip bilat Past Anesthesia/Blood Transfusion Reactions: No Reported Reaction Additional Past Anesthesia/Blood Transfusion Reaction / Comment(s): after hip replacement last time had very slow pulse Date of Last Stent Placement:: 05/2017 Past Psychological History: Anxiety Additional Psychological History / Comment(s): Pt resides alone. Pt normally is independent with her ADls. She drives a car. Smoking Status: Former smoker Past Alcohol Use History: None Reported Additional Past Alcohol Use History / Comment(s): quit smoking November 2016, started smoking at age of 13, smoked 1ppd Past Drug Use History: None Reported - Past Family History Mother Family Medical History: Cancer, Hypertension Additional Family Medical History / Comment(s): Bone,blood,pancreatic CA Father Family Medical History: Cancer, Hypertension, Thyroid Disorder Additional Family Medical History / Comment(s): Small Cell Carcoma CA Medications and Allergies Home Medications Medication Instructions Recorded Confirmed Type Clopidogrel [Plavix] 75 mg PO DAILY 07/28/17 10/28/18 History Aspirin 81 mg PO DAILY chew 08/22/17 10/28/18 Rx Baclofen 10 mg PO TID PRN 12/30/17 10/28/18 History Olmesartan Medoxomil 10 mg PO DAILY 10/15/18 10/28/18 History Nitroglycerin Sl Tabs [Nitrostat] 0.4 mg SUBLINGUAL Q5M PRN #30 tab 10/16/18 10/28/18 Rx Hydrochlorothiazide 12.5 mg PO DAILY 10/28/18 10/28/18 History Allergies Allergy/AdvReac Type Severity Reaction Status Date / Time adhesive tape Allergy SKIN TEAR Verified 10/28/18 23:25 Physical Exam Vitals: Vital Signs Temp Pulse Pulse Resp BP BP Pulse Ox 10/29/18 02:54 49 L 15 10/29/18 02:33 98.2 F 50 L 15 124/78 99 10/29/18 01:40 49 L 13 113/69 97 10/29/18 01:30 55 L 18 113/69 97 10/29/18 01:20 59 L 25 H 113/69 98 10/29/18 01:10 64 19 113/69 98 10/29/18 01:00 51 L 16 117/77 97 10/29/18 00:50 59 L 18 117/77 99 10/29/18 00:40 57 L 18 117/77 96 10/29/18 00:30 52 L 17 117/77 98 10/29/18 00:20 51 L 19 117/77 97 10/29/18 00:10 55 L 16 117/77 95 10/29/18 00:00 51 L 27 H 109/60 98 10/28/18 23:50 47 L 15 109/60 95 10/28/18 23:40 48 L 17 109/60 93 L 10/28/18 23:30 48 L 18 109/60 95 10/28/18 23:21 46 L 18 94 L 10/28/18 22:50 98.3 F 58 L 16 124/79 97 Intake and Output 10/28/18 10/29/18 10/29/18 22:59 06:59 14:59 Other: Voiding Method Toilet # Voids 1 Weight 62.596 kg Results 10/28/18 23:20 10/28/18 23:20 Cardiac Enzymes 10/28/18 10/28/18 10/29/18 Range/Units 23:20 23:20 05:38 AST 19 (14-36) U/L Troponin I <0.012 <0.012 (0.000-0.034) ng/mL Coagulation 10/28/18 Range/Units 23:20 PT 9.8 (9.0-12.0) sec APTT 26.6 (22.0-30.0) sec CBC 10/28/18 Range/Units 23:20 WBC 7.1 (3.8-10.6) k/uL RBC 3.86 (3.80-5.40) m/uL Hgb 11.3 L (11.4-16.0) gm/dL Hct 34.4 (34.0-46.0) % Plt Count 318 (150-450) k/uL Comprehensive Metabolic Panel 10/28/18 Range/Units 23:20 Sodium 136 L (137-145) mmol/L Potassium 3.8 (3.5-5.1) mmol/L Chloride 102 (98-107) mmol/L Carbon Dioxide 25 (22-30) mmol/L BUN 17 (7-17) mg/dL Creatinine 0.92 (0.52-1.04) mg/dL Glucose 98 (74-99) mg/dL Calcium 9.5 (8.4-10.2) mg/dL AST 19 (14-36) U/L ALT 18 (9-52) U/L Alkaline Phosphatase 88 (38-126) U/L Total Protein 6.8 (6.3-8.2) g/dL Albumin 4.2 (3.5-5.0) g/dL Current Medications Generic Name Dose Route Start Last Admin Trade Name Freq PRN Reason Stop Dose Admin Acetaminophen 650 mg 10/29/18 00:56 Tylenol Tab PO Q6HR PRN Mild Pain or Fever > 100.5 Baclofen 10 mg 10/29/18 00:58 Lioresal PO TID PRN Muscle Spasm Clopidogrel Bisulfate 75 mg 10/29/18 09:00 Plavix PO DAILY [facility] Hydrochlorothiazide 12.5 mg 10/29/18 09:00 Hydrodiuril PO DAILY [facility] Losartan Potassium 10 mg 10/29/18 09:00 Cozaar PO DAILY [facility] Morphine Sulfate 4 mg 10/29/18 00:56 Morphine Sulfate (Inj) IV Q4HR PRN Severe Pain Naloxone HCl 0.2 mg 10/29/18 00:56 Narcan IV Q2M PRN Opioid Reversal Nitroglycerin 0.4 mg 10/29/18 00:58 Nitrostat SUBLINGUAL Q5M PRN Chest Pain Intake and Output 10/28/18 10/29/18 10/29/18 22:59 06:59 14:59 Other: Voiding Method Toilet # Voids 1 Weight 62.596 kg 10/28/18 23:20 10/28/18 23:20
--- NOTE | 2018-10-29 15:25 | P.HPIM ---
History of Present Illness Chief Complaint: Chest pain This is a history and physical and discharge summary This is a pleasant 62-year-old female with a past medical history significant for CAD, hypertension, hyperlipidemia, CVA comes in for chest pain. She said that she was resting when she suddenly started having chest pain in the center of the chest radiating to the right arm and the patient to nausea. She said that this was gone on and off for couple hours of that's why the patient came into the ER for further urology management. The patient did not complain of any racing heart, no abdominal pain, no vomiting, no diarrhea constipation, no tingling numbness of his extremities, and no itch or rash. ER course-patient's vitals were stable. WBC 7.1 hemoglobin 11.3 platelets 318 sodium 136 potassium 3.8 creatinine 0.92, troponins were negative. Chest x-ray was negative for any acute process Patient was admitted to the hospitalist service a further urology management for further evaluation and management of the chest pain with cardiology consult. On 10/29/2018 Patient was not having any chest pain, racing heart, no cough no shortness breath. This yielded that her symptoms have improved and totally gone. On exam, alert and oriented x3. HEENT: Conjunctivae normal. eyes normal. NECK: No JVD. No thyroid enlargement. No LNs CARDIOVASCULAR: S1, S2 muffled. No murmur RESPIRATION: Breath sounds diminished in the bases. No rhonchi or crackles. No bronchial breathing. ABDOMEN: Soft, nontender . No guarding. no masses palpable. No ascites, No hepatosplenomegaly.Bowel sounds heard. LEGS: No edema. no swelling NERVOUS SYSTEM: Cranial N 2-12 grossly normal. Moves all 4 limbs. No focal deficits. No sensory deficit. No signs of cerebellar dysfucntion. Skin: no ulcer no rash Joints: No active swelling. No inflammation. Lymphatic system. No LN neck axilla or groin. Patient will does be discharged if cleared by cardiology. She is to follow Dr. Granados tomorrow for further evaluation and possible stress test. Patient is also asked to follow with the PCP Review of Systems All systems: negative Past Medical History Past Medical History: Coronary Artery Disease (CAD), Chest Pain / Angina, CVA/TIA, Hypertension, Myocardial Infarction ([place]), Osteoarthritis (OA), Syncope Additional Past Medical History / Comment(s): Degenerative disc disease, chRONIC back pain, CVA 07/2017- left with weakness on right Last Myocardial Infarction Date:: 09/2017 History of Any Multi-Drug Resistant Organisms: None Reported Past Surgical History: Heart Catheterization With Stent, Joint Replacement Additional Past Surgical History / Comment(s): Ectopic , loop monitor, 3 stents, Total hip bilat Past Anesthesia/Blood Transfusion Reactions: No Reported Reaction Additional Past Anesthesia/Blood Transfusion Reaction / Comment(s): after hip replacement last time had very slow pulse Date of Last Stent Placement:: 05/2017 Past Psychological History: Anxiety Additional Psychological History / Comment(s): Pt resides alone. Pt normally is independent with her ADls. She drives a car. Smoking Status: Former smoker Past Alcohol Use History: None Reported Additional Past Alcohol Use History / Comment(s): quit smoking November 2016, started smoking at age of 13, smoked 1ppd Past Drug Use History: None Reported - Past Family History Mother Family Medical History: Cancer, Hypertension Additional Family Medical History / Comment(s): Bone,blood,pancreatic CA Father Family Medical History: Cancer, Hypertension, Thyroid Disorder Additional Family Medical History / Comment(s): Small Cell Carcoma [place] Medications and Allergies Home Medications Medication Instructions Recorded Confirmed Type Clopidogrel [Plavix] 75 mg PO DAILY 07/28/17 10/28/18 History Aspirin 81 mg PO DAILY chew 08/22/17 10/28/18 Rx Baclofen 10 mg PO TID PRN 12/30/17 10/28/18 History Olmesartan Medoxomil 10 mg PO DAILY 10/15/18 10/28/18 History Nitroglycerin Sl Tabs [Nitrostat] 0.4 mg SUBLINGUAL Q5M PRN #30 tab 10/16/18 Rx Hydrochlorothiazide 12.5 mg PO DAILY 10/28/18 10/28/18 History Allergies Allergy/AdvReac Type Severity Reaction Status Date / Time adhesive tape Allergy SKIN TEAR Verified 10/28/18 23:25 Physical Exam Vitals: Vital Signs Temp Pulse Pulse Pulse Resp BP BP 10/29/18 11:39 97.5 F L 56 L 16 112/77 10/29/18 08:00 97.6 F 72 16 115/74 10/29/18 02:54 49 L 15 10/29/18 02:33 98.2 F 50 L 15 124/78 10/29/18 01:40 49 L 13 113/69 10/29/18 01:30 55 L 18 113/69 10/29/18 01:20 59 L 25 H 113/69 10/29/18 01:10 64 19 113/69 10/29/18 01:00 51 L 16 117/77 10/29/18 00:50 59 L 18 117/77 10/29/18 00:40 57 L 18 117/77 10/29/18 00:30 52 L 17 117/77 10/29/18 00:20 51 L 19 117/77 10/29/18 00:10 55 L 16 117/77 10/29/18 00:00 51 L 27 H 109/60 10/28/18 23:50 47 L 15 109/60 10/28/18 23:40 48 L 17 109/60 10/28/18 23:30 48 L 18 109/60 10/28/18 23:21 46 L 18 10/28/18 22:50 98.3 F 58 L 16 124/79 Pulse Ox 10/29/18 11:39 100 10/29/18 08:00 100 10/29/18 02:54 10/29/18 02:33 99 10/29/18 01:40 97 10/29/18 01:30 97 10/29/18 01:20 98 10/29/18 01:10 98 10/29/18 01:00 97 10/29/18 00:50 99 10/29/18 00:40 96 10/29/18 00:30 98 10/29/18 00:20 97 10/29/18 00:10 95 10/29/18 00:00 98 10/28/18 23:50 95 10/28/18 23:40 93 L 10/28/18 23:30 95 10/28/18 23:21 94 L 10/28/18 22:50 97 Intake and Output 10/29/18 10/29/18 10/29/18 06:59 14:59 22:59 Intake Total 400 Balance 400 Intake: Oral 400 Other: Voiding Method Toilet Toilet # Voids 1 Results CBC & Chem 7: 10/28/18 23:20 10/28/18 23:20 Labs: Abnormal Lab Results - Last 24 Hours (Table) 10/28/18 10/28/18 Range/Units 23:20 23:20 Hgb 11.3 L (11.4-16.0) gm/dL Sodium 136 L (137-145) mmol/L Thrombosis Risk Factor Assmnt - Choose All That Apply Each Factor Represents 1 point: Age 41-60 years Other Risk Factors: No Other congenital or acquired thrombophilia - If yes, enter type in comment: No Thrombosis Risk Factor Assessment Total Risk Factor Score: 1 Thrombosis Risk Factor Assessment Level: Low Risk Assessment and Plan Assessment: Chest pain, atypical for angina. History of coronary artery disease status post multiple stent placements. Recent cardiac catheterization May 2017 revealed stable CAD with no progression of disease and patent stents. Hypertension Dyslipidemia History of CVA PLAN - Patient is admitted to CDU - Her troponins have been negative so far - We'll continue current medications - Cardiology has been consulted and appreciate the recommendations - Patient will be discharged if cleared by cardiology to follow up with her cardiology as an outpatient for possible stress test Time with Patient: Greater than 30
== END 2018-10-29 16:00 | disposition home or self-care (01) ==
LOC: EC 22:32 → 1SOBS 10-29 00:58
PROVIDERS: ADMIT Internal Medicine; ATTEND Internal Medicine
DX: R07.89 Other chest pain (principal); I25.10 Atherosclerotic heart disease of native coronary artery without angina pectoris; I10 Essential (primary) hypertension; E78.5 Hyperlipidemia, unspecified; M19.90 Unspecified osteoarthritis, unspecified site; G89.29 Other chronic pain; M54.9 Dorsalgia, unspecified; R00.2 Palpitations; R42 Dizziness and giddiness; R11.0 Nausea; R00.0 Tachycardia, unspecified; I44.7 Left bundle-branch block, unspecified; I69.351 Hemiplegia and hemiparesis following cerebral infarction affecting right dominant side; F41.9 Anxiety disorder, unspecified; R22.40 Localized swelling, mass and lump, unspecified lower limb; Z87.891 Personal history of nicotine dependence; Z79.82 Long term (current) use of aspirin; Z79.02 Long term (current) use of antithrombotics/antiplatelets; Z79.899 Other long term (current) drug therapy; Z91.048 Other nonmedicinal substance allergy status; I25.2 Old myocardial infarction; Z86.79 Personal history of other diseases of the circulatory system; Z95.5 Presence of coronary angioplasty implant and graft; Z96.643 Presence of artificial hip joint, bilateral; Z82.49 Family history of ischemic heart disease and other diseases of the circulatory system; Z83.49 Family history of other endocrine, nutritional and metabolic diseases; Z80.8 Family history of malignant neoplasm of other organs or systems; Z80.6 Family history of leukemia; Z80.0 Family history of malignant neoplasm of digestive organs
CPT/HCPCS: 99285; 36415; 93005; 83880; 80053; 83735; 84484 ×2; 85025; 85610; 85730; 71046; G0378

== ENCOUNTER 2018-12-15 00:33 | Observation (INO) | payer MEDICARE ==
[2018-12-15] MEDS ORDERED: NITROGLYCERIN SL TABS 0.4 MG TAB SUBLINGUAL PRN (00:45)
[2018-12-15] MEDS ORDERED: HEPARIN SOD,PORK IN 0.45% NACL 25,000 UNIT in 0.45% NACL 1 250ML.BAG IV SCH (00:45)
--- NOTE | 2018-12-15 00:48 | ED ---
Chest Pain HPI - General Chief Complaint: Chest Pain Stated Complaint: Chest pain Time Seen by Provider: 12/15/18 00:42 Source: patient Mode of arrival: ambulatory Limitations: no limitations - History of Present Illness Initial Comments: James 63-year-old female known coronary artery disease who presents to the emergency department today as a transfer from outside facility. Patient reports that earlier in the evening she was sitting watching TV when she suddenly felt pressure-like left-sided chest pain and feeling as though someone was squeezing her rib cage. Patient reports she thought she can get a deep breath she is having crushing chest pain which prompted her visit to the outside emergency department where EKG was nonischemic initial troponin was negative however given the patient's high risk decision was made to start heparin and patient was transferred here for evaluation by her call or contact centre operator. Patient reports upon arrival her chest pressure has decreased written note 10 intensity to a 3 out of 10, patient had declined nitro due to not liking the way it made her feel - Related Data Home Medications Medication Instructions Recorded Confirmed Clopidogrel [Plavix] 75 mg PO DAILY 07/28/17 10/28/18 Baclofen 10 mg PO TID PRN 12/30/17 10/28/18 Olmesartan Medoxomil 10 mg PO DAILY 10/15/18 10/28/18 Hydrochlorothiazide 12.5 mg PO DAILY 10/28/18 10/28/18 Previous Rx's Medication Instructions Recorded Aspirin 81 mg PO DAILY chew 08/22/17 Nitroglycerin Sl Tabs [Nitrostat] 0.4 mg SUBLINGUAL Q5M PRN #30 tab 10/16/18 Allergies Allergy/AdvReac Type Severity Reaction Status Date / Time adhesive tape Allergy SKIN TEAR Verified 12/15/18 00:38 Review of Systems ROS Statement: Those systems with pertinent positive or pertinent negative responses have been documented in the HPI. ROS Other: All systems not noted in ROS Statement are negative. EKG Findings - EKG Comments: EKG Findings:: G was obtained due to complaint of chest pain, EKG obtained at 12:33 AM, rate is 64 rhythm is sinus bradycardia with a left bundle-branch block, there is a normal axis, there are normal intervals, NM 172, Respiratory, QTC is 453 there are no acute ST elevations or depressions there is no evidence of acute ischemia or infarction. Past Medical History Past Medical History: Coronary Artery Disease (CAD), Chest Pain / Angina, CVA/TIA, Hypertension, Myocardial Infarction ([place]), Osteoarthritis (OA), Syncope Additional Past Medical History / Comment(s): Degenerative disc disease, chRONIC back pain, CVA 07/2017- left with weakness on right Last Myocardial Infarction Date:: 09/2017 History of Any Multi-Drug Resistant Organisms: None Reported Past Surgical History: Heart Catheterization With Stent, Joint Replacement Additional Past Surgical History / Comment(s): Ectopic , loop monitor, 3 stents, Total hip bilat Past Anesthesia/Blood Transfusion Reactions: No Reported Reaction Additional Past Anesthesia/Blood Transfusion Reaction / Comment(s): after hip replacement last time had very slow pulse Date of Last Stent Placement:: 05/2017 Past Psychological History: Anxiety Smoking Status: Former smoker Past Alcohol Use History: None Reported Past Drug Use History: None Reported - Past Family History Mother Family Medical History: Cancer, Hypertension Additional Family Medical History / Comment(s): Bone,blood,pancreatic CA Father Family Medical History: Cancer, Hypertension, Thyroid Disorder Additional Family Medical History / Comment(s): Small Cell Carcoma CA General Exam - General Exam Comments Initial Comments: Physical Exam GENERAL: Patient is well-developed and well-nourished. Patient is nontoxic and well- hydrated and is in no distress. HENT: Normocephalic, Atraumatic. EYES: PERRL, EOMI PULMONARY: Unlabored respirations. No audible rales rhonchi or wheezing was noted. CARDIOVASCULAR: There is a regular rate and rhythm Systolic murmur Warm and well perfused extremities ABDOMEN: Soft and nontender with normal bowel sounds. SKIN: Skin is clear with no lesions or rashes and otherwise unremarkable. : Deferred NEUROLOGIC: Patient is alert and oriented x3. Moving all extremities spontaneously MUSCULOSKELETAL: Normal extremities with adequate strength and full range of motion. No lower extremity swelling or edema. No calf tenderness. PSYCHIATRIC: Normal psychiatric evaluation. Limitations: no limitations Course Vital Signs 12/15/18 00:36 Temperature 97.6 F Pulse Rate 70 Respiratory 18 Rate Blood Pressure 129/92 O2 Sat by Pulse 99 Oximetry Chest Pain MDM - [facility] Patient care was discussed with transferring physician Dr. garcia prior to patient's arrival Upon arrival patient expressing chest pain 3 out of 10 in intensity EKG appears nonischemic Labs are reviewed and repeat labs were obtained Patient will be admitted for chest pain with consult to cardiology patient. Dr. Granados Disposition Clinical Impression: Chest pain Disposition: ADMITTED IP TO THIS HOSP Condition: Stable Is patient prescribed a controlled substance at d/c from ED?: No
[2018-12-15 02:44] LABS: Basophils # (A) 0.1 k/uL (0-0.2); Basophils % (A) 1 %; Eosinophils # (A) 0.3 k/uL (0-0.7); Eosinophils % (A) 6 %; HCT 35.2 % (34.0-46.0); HGB 11.6 gm/dL (11.4-16.0); Lymphocytes # (A) 2.4 k/uL (1.0-4.8); Lymphocytes % (A) 38 %; MCH 29.3 pg (25.0-35.0); MCHC 32.9 g/dL (31.0-37.0); MCV 89.1 fL (80.0-100.0); Mean Platelet Volume 7.3; Monocytes # (A) 0.4 k/uL (0-1.0); Monocytes % (A) 6 %; Neutrophils % (A) 49 %; Platelet Count 307 k/uL (150-450); RBC 3.95 m/uL (3.80-5.40); RDW 14.4 % (11.5-15.5); WBC 6.2 k/uL (3.8-10.6)
[2018-12-15 02:52] LABS: Albumin 4.1 g/dL (3.5-5.0); Calcium 9.2 mg/dL (8.4-10.2); Magnesium 2.3 mg/dL (1.6-2.3); Potassium 3.9 mmol/L (3.5-5.1); Total Bilirubin 0.4 mg/dL (0.2-1.3); Total Protein 6.9 g/dL (6.3-8.2)
[2018-12-15 02:53] LABS: INR 0.9 (<1.2); Partial Thromboplastin Time 27.9 sec (22.0-30.0); Prothrombin Time 10.2 sec (9.0-12.0)
[2018-12-15] MEDS ORDERED: HEPARIN SODIUM,PORCINE 5,000 UNIT/ML 1 ML VIAL IV PRN (03:08)
[2018-12-15 08:00] LABS: Mean Platelet Volume 7.5; Platelet Count 289 k/uL (150-450)
--- NOTE | 2018-12-15 13:22 | P.CRDCN ---
History of Present Illness History of present illness: This is Namrata Tan PA-C dictating a consult on this patient The patient was interviewed and examined by me as well as by Dr. Shah Case discussed with Dr. Shah and he agrees with the plan of care IMPRESSION / ASSESSMENT: Atypical chest pain, troponins negative 3 History of CAD status post stenting Hypertension Former smoker PLAN: Check d-dimer Stop heparin Dobutamine stress echo on Monday to rule out progression of CAD HPI Patient is a 63-year-old male with past medical history of CAD status post stenting who is transferred from an outside facility for further evaluation of chest discomfort. Per the ER notes her initial EKG and troponins were negative at the outside facility. I do not have the records. Patient has had intermittent tightness in her chest and shortness of breath for the last 1-1/2 weeks. She states it started after she was moving some heavy boxes and furniture. She denies any other associated symptoms such as palpitations, nausea vomiting, diaphoresis, dizziness, lightheadedness or syncope. She is a patient of Dr. Jones and had a stress test scheduled in the office but canceled it. She was seen in an outside hospital and was transferred here for further evaluation due to her cardiac history. Upon arrival to [facility] her vital signs were stable. EKG showed sinus rhythm with a left bundle branch block. Troponins negative 3. Patient seen and examined resting in bed. States her chest pain has resolved. Denies any shortness of breath, dizziness, lightheadedness, palpitations, syncope. states she is hungry. ROS: No fevers, chills or rigors, no cough, phlegm or expectoration, no nausea, vomiting or diarrhea, no hematuria, dysuria, Positive for back pain no strokes or seizures, no skin lesions. EXAMINATION: Temperature 98.0F, pulse 54, respirations 16, blood pressure 110/62, oxygen saturation 100% on room air Patient seen and examined resting comfortably in bed, in no acute distress Lungs are clear to auscultation bilaterally Heart is regular, soft systolic murmur appreciated No lower extremity edema noted Abdomen soft and nontender REVIEW OF LABS, ECG & MEDICAL DATA EKG shows sinus rhythm with left bundle branch block Troponin negative 3 WBC 6.2, hemoglobin 11.6, platelets 307, potassium 3.9, BUN 10, creatinine 0.82, magnesium 2.3 Past Medical History Past Medical History: Coronary Artery Disease (CAD), Chest Pain / Angina, CVA/TIA, Hypertension, Myocardial Infarction ([place]), Osteoarthritis (OA), Syncope Additional Past Medical History / Comment(s): Degenerative disc disease, chronic back pain, CVA 07/2017- left with weakness on right on and off Last Myocardial Infarction Date:: 09/2017 History of Any Multi-Drug Resistant Organisms: None Reported Past Surgical History: Heart Catheterization With Stent, Joint Replacement Additional Past Surgical History / Comment(s): Ectopic , loop monitor, 3 stents, Total hip bilat Past Anesthesia/Blood Transfusion Reactions: No Reported Reaction Additional Past Anesthesia/Blood Transfusion Reaction / Comment(s): after hip replacement last time had very slow pulse Date of Last Stent Placement:: 05/2017 Past Psychological History: Anxiety Smoking Status: Former smoker Past Alcohol Use History: None Reported Past Drug Use History: None Reported - Past Family History Mother Family Medical History: Cancer, Hypertension Additional Family Medical History / Comment(s): Bone,blood,pancreatic CA Father Family Medical History: Cancer, Hypertension, Thyroid Disorder Additional Family Medical History / Comment(s): Small Cell Carcoma CA Medications and Allergies Home Medications Medication Instructions Recorded Confirmed Type Clopidogrel [Plavix] 75 mg PO DAILY 07/28/17 12/15/18 History Aspirin 81 mg PO DAILY chew 08/22/17 12/15/18 Rx Baclofen 10 mg PO QID 12/30/17 12/15/18 History Olmesartan Medoxomil 10 mg PO BID 10/15/18 12/15/18 History Nitroglycerin Sl Tabs [Nitrostat] 0.4 mg SUBLINGUAL Q5M PRN #30 tab 10/16/18 12/15/18 Rx Allergies Allergy/AdvReac Type Severity Reaction Status Date / Time adhesive tape Allergy SKIN TEAR Verified 12/15/18 08:15 Physical Exam Vitals: Vital Signs Temp Pulse Pulse Resp BP Pulse Ox 12/15/18 03:10 98.0 F 54 L 16 110/62 100 12/15/18 02:37 49 L 18 120/72 98 12/15/18 02:26 18 L 12/15/18 00:36 97.6 F 70 18 129/92 99 Intake and Output 12/14/18 12/15/18 12/15/18 22:59 06:59 14:59 Other: Voiding Method Toilet # Voids 1 Weight 62.142 kg Results 12/15/18 07:47 12/15/18 02:34 Cardiac Enzymes 12/15/18 12/15/18 12/15/18 Range/Units 01:07 02:34 02:34 AST 19 (14-36) U/L Troponin I <0.012 <0.012 (0.000-0.034) ng/mL Coagulation 12/15/18 12/15/18 Range/Units 01:07 02:34 PT 10.2 (9.0-12.0) sec APTT 29.2 27.9 (22.0-30.0) sec CBC 12/15/18 Range/Units 02:34 WBC 6.2 (3.8-10.6) k/uL RBC 3.95 (3.80-5.40) m/uL Hgb 11.6 (11.4-16.0) gm/dL Hct 35.2 (34.0-46.0) % Plt Count 307 (150-450) k/uL Comprehensive Metabolic Panel 12/15/18 Range/Units 02:34 Sodium 140 (137-145) mmol/L Potassium 3.9 (3.5-5.1) mmol/L Chloride 108 H (98-107) mmol/L Carbon Dioxide 26 (22-30) mmol/L BUN 10 (7-17) mg/dL Creatinine 0.82 (0.52-1.04) mg/dL Glucose 92 (74-99) mg/dL Calcium 9.2 (8.4-10.2) mg/dL AST 19 (14-36) U/L ALT 16 (9-52) U/L Alkaline Phosphatase 76 (38-126) U/L Total Protein 6.9 (6.3-8.2) g/dL Albumin 4.1 (3.5-5.0) g/dL Current Medications Generic Name Dose Route Start Last Admin Trade Name Freq PRN Reason Stop Dose Admin Aspirin 325 mg 12/16/18 09:00 Aspirin PO DAILY DORIS Heparin Sodium (Porcine) 0 unit 12/15/18 03:08 Heparin IV PER PROTOCOL PRN Low PTT Protocol Heparin Sodium/Sodium Chloride 250 mls @ 7.457 mls/hr 12/15/18 00:45 12/15/18 02:34 25,000 unit/ Sodium Chloride IV 12 units/kg/hr .Q24H DORIS 7.457 mls/hr Administration Protocol 12 UNITS/KG/HR Nitroglycerin 0.4 mg 12/15/18 00:45 Nitrostat SUBLINGUAL Q5M PRN Chest Pain Intake and Output 12/14/18 12/15/18 12/15/18 22:59 06:59 14:59 Other: Voiding Method Toilet # Voids 1 Weight 62.142 kg 12/15/18 02:34 12/15/18 02:34
[2018-12-15 14:41] VITALS: BMI 23.5
[2018-12-15] MEDS ORDERED: ASPIRIN 81 MG PO SCH (16:00)
--- NOTE | 2018-12-15 18:58 | P.HPIM ---
History of Present Illness H&P Date: 12/15/18 Chief Complaint: Chest pain Ms. Adorno is a 63-year-old female with a past medical history of coronary artery disease, CVA/TIA, hypertension, [place], osteoarthritis coming into the hospital with a chief complaint of chest pain. Patient reports chest pain is mostly on the left side of the chest associated with some shortness of breath going on for the past 1-2 weeks. The chest pain is not there constantly but it comes on and off, sometimes with exertional in nature as she felt that the chest pain was more pronounced when she was trying to lift some heavy boxes and furniture. Patient denies having any diaphoresis dizziness or lightheadedness associated with the chest pain. Dr. Null is her aircraft mechanic structures and he recommended that she get a stress test but she canceled it. She was admitted at an outside hospital and transferred here due to her extensive cardiac history. In the ER patient had an EKG showing left bundle branch block and her troponins have been negative 3. Patient denies having any fevers chills or rigors. No palpitations or syncopal episodes. No orthopnea or PND. No lower extremity swelling. No abdominal pain nausea vomiting or diarrhea. No recent travel. No headache or blurring of vision. No facial droop. No neck pain. No dysuria or hematuria. No weakness of her extremities. In the emergency department patient was started on IV heparin and admitted to the observation unit. Patient has been evaluated by the aircraft mechanic structures and her heparin has been discontinued. Review of Systems REVIEW OF SYSTEMS: PSYCH: No history of anxiety or depression NEURO:No c/o weakness of the extremties, No facial droop, No speech abnormalities. VASCULAR: History of varicose veins HEMATOLOGIC: No history of easy bleeding and bruising . No recent infections . RESPIRATORY: No cough, No SOB, No chest discomfort. IMMUNE: No infections INTEGUMENT: no rashes OPHTHALMOLOGIC: No blurry vision and no eye discharge : No dysuria or hematuria ENVIRONMENTAL PROTECTION GEOLOGIST: No bleeding PV CARDIAC: as per HPI MUSCULOSKELETAL : No Aches or pains in the joints or muscles. GI: No abdominal pain, Nausea or vomiting. No constipation or diarrhea. All 13 review of systems are negative except for the ones mentioned above Past Medical History Past Medical History: Coronary Artery Disease (CAD), Chest Pain / Angina, CVA/TIA, Hypertension, Myocardial Infarction ([place]), Osteoarthritis (OA), Syncope Additional Past Medical History / Comment(s): Degenerative disc disease, chronic back pain, CVA 07/2017- left with weakness on right on and off Last Myocardial Infarction Date:: 09/2017 History of Any Multi-Drug Resistant Organisms: None Reported Past Surgical History: Heart Catheterization With Stent, Joint Replacement Additional Past Surgical History / Comment(s): Ectopic , loop monitor, 3 stents, Total hip bilat Past Anesthesia/Blood Transfusion Reactions: No Reported Reaction Additional Past Anesthesia/Blood Transfusion Reaction / Comment(s): after hip replacement last time had very slow pulse Date of Last Stent Placement:: 05/2017 Past Psychological History: Anxiety Smoking Status: Former smoker Past Alcohol Use History: None Reported Past Drug Use History: None Reported - Past Family History Mother Family Medical History: Cancer, Hypertension Additional Family Medical History / Comment(s): Bone,blood,pancreatic CA Father Family Medical History: Cancer, Hypertension, Thyroid Disorder Additional Family Medical History / Comment(s): Small Cell Carcoma CA Medications and Allergies Home Medications Medication Instructions Recorded Confirmed Type Clopidogrel [Plavix] 75 mg PO DAILY 07/28/17 12/15/18 History Aspirin 81 mg PO DAILY chew 08/22/17 12/15/18 Rx Baclofen 10 mg PO QID 12/30/17 12/15/18 History Olmesartan Medoxomil 10 mg PO BID 10/15/18 12/15/18 History Nitroglycerin Sl Tabs [Nitrostat] 0.4 mg SUBLINGUAL Q5M PRN #30 tab 10/16/18 12/15/18 Rx Allergies Allergy/AdvReac Type Severity Reaction Status Date / Time adhesive tape Allergy SKIN TEAR Verified 12/15/18 08:15 Physical Exam Vitals: Vital Signs Temp Pulse Pulse Resp BP BP Pulse Ox 12/15/18 17:19 98.3 F 64 18 100/61 96 12/15/18 12:00 98.0 F 52 L 18 105/66 98 12/15/18 08:00 97.5 F L 62 18 134/73 98 12/15/18 03:10 98.0 F 54 L 16 110/62 100 12/15/18 02:37 49 L 18 120/72 98 12/15/18 02:26 18 L 12/15/18 00:36 97.6 F 70 18 129/92 99 Intake and Output 12/15/18 12/15/18 12/15/18 06:59 14:59 22:59 Intake Total 46.358 Balance 46.358 Intake: Intake, IV Titration 46.358 Amount Heparin Sod,Pork in 0.45% 46.358 NaCl 25,000 unit In 0.45 % NaCl 1 250ml.bag @ 12 UNITS/KG/HR 7.457 mls/hr IV .Q24H DORIS Rx#: [id number] Other: Voiding Method Toilet Toilet Toilet # Voids 1 2 Weight 62.142 kg 62.142 kg GEN. APPEARANCE: alert, in no apparent distress HEENT: Head normocephalic, eyes pupils round and reactive to light. No pallor no icterus. Mucous membranes are moist. Neck no thyromegaly or lymphadenopathy. RESPIRATORY EXAM: normal lung sounds bilaterally. Absent: respiratory distress, wheezes, rales, rhonchi, stridor CARDIOVASCULAR EXAM: regular rate, normal rhythm, normal heart sounds. Absent: systolic murmur, diastolic murmur, rubs, gallop, clicks GI/ABDOMINAL EXAM: soft, normal bowel sounds. Absent: distended, tenderness, guarding, rebound, rigid EXTREMITIES EXAM: No bilateral pitting edema. NEUROLOGICAL EXAM: alert, oriented X3, no focal neurological deficits. PSYCHIATRIC EXAM: normal affect, normal mood SKIN EXAM: warm, dry, intact, normal color. Absent: rash Results CBC & Chem 7: 12/15/18 07:47 12/15/18 02:34 Labs: Abnormal Lab Results - Last 24 Hours (Table) 12/15/18 12/15/18 Range/Units 02:34 07:47 APTT 55.9 H (22.0-30.0) sec Chloride 108 H (98-107) mmol/L Thrombosis Risk Factor Assmnt - Choose All That Apply Any of the Below Risk Factors Present?: No Other Risk Factors: Yes Each Risk Factor Represents 2 Points: Age 61-74 years Other congenital or acquired thrombophilia - If yes, enter type in comment: No Thrombosis Risk Factor Assessment Total Risk Factor Score: 2 Thrombosis Risk Factor Assessment Level: Low Risk Assessment and Plan Assessment: ASSESSMENT Atypical chest pain History of coronary artery disease status post stenting Former smoking Hypertension Chronic low back pain History of CVA in July 2017 PLAN: Patient had serial troponins and EKGs within normal limits. As the patient has history of coronary artery disease with stents placement and is having exertional chest pain, will need a dobutamine stress echo that is scheduled for Monday morning. Her home medications has been resumed. Further recommendations to follow depending on the progress of the patient.
[2018-12-15] MEDS: BACLOFEN 10 MG TAB PO PRN (20:42)
[2018-12-15] MEDS: LOSARTAN 50 MG TAB PO SCH (20:42)
[2018-12-16] MEDS: CLOPIDOGREL 75 MG TAB PO SCH (07:58)
[2018-12-16] MEDS: LOSARTAN 50 MG TAB PO SCH ×2 (07:58→21:09)
[2018-12-16 08:15] LABS: Mean Platelet Volume 7.2; Platelet Count 286 k/uL (150-450)
[2018-12-16 08:41] LABS: Cholesterol 200 mg/dL (<200); HDL Cholesterol 71 mg/dL (40-60); LDL Cholesterol,Calculated 113 mg/dL (0-99); Triglycerides 79 mg/dL (<150)
[2018-12-16] MEDS ORDERED: ASPIRIN 325 MG TAB PO SCH (09:00)
--- NOTE | 2018-12-16 11:28 | P.PN ---
Subjective Progress Note Date: 12/16/18 Principal diagnosis: Chest pain Ms. Adorno is a 63-year-old female with a past medical history of coronary artery disease, CVA/TIA, hypertension, [place], osteoarthritis coming into the hospital with a chief complaint of chest pain. Patient reports chest pain is mostly on the left side of the chest associated with some shortness of breath going on for the past 1-2 weeks. The chest pain is not there constantly but it comes on and off, sometimes with exertional in nature as she felt that the chest pain was more pronounced when she was trying to lift some heavy boxes and furniture. Patient denies having any diaphoresis dizziness or lightheadedness associated with the chest pain. Dr. Null is her clean out driller helper and he recommended that she get a stress test but she canceled it. She was admitted at an outside hospital and transferred here due to her extensive cardiac history. In the ER patient had an EKG showing left bundle branch block and her troponins have been negative 3. On 12/16/2018 - patient is sitting in a chair by the bedside watching television. She complaints of chest pain that comes on and off. She states that like a sharp pain across the chest that comes and goes. No diaphoresis or difficulty in breathing. No nausea vomiting or diarrhea. Patient denies having any syncopal episode or loss of consciousness. Patient denies having any fevers chills or rigors overnight. No palpitations. No orthopnea or PND. No lower extremity swelling. Objective - Vital Signs Vital signs: Vital Signs Temp 97.9 F 12/16/18 07:53 Pulse 52 L 12/16/18 07:53 Resp 18 12/16/18 07:53 BP 92/63 12/16/18 07:53 Pulse Ox 100 12/16/18 07:53 Intake & Output 12/15/18 12/16/18 12/16/18 18:59 06:59 18:59 Intake Total 46.358 Balance 46.358 Weight 62.142 kg Intake: Intake, IV Titration 46.358 Amount Heparin Sod,Pork in 0.45% 46.358 NaCl 25,000 unit In 0.45 % NaCl 1 250ml.bag @ 12 UNITS/KG/HR 7.457 mls/hr IV .Q24H DORIS Rx#: [id number] Other: Voiding Method Toilet Toilet Toilet # Voids 2 1 1 - Exam GEN. APPEARANCE: alert, in no apparent distress HEENT: Head normocephalic, eyes pupils round and reactive to light. No pallor no icterus. Mucous membranes are moist. Neck no thyromegaly or lymphadenopathy. RESPIRATORY EXAM: normal lung sounds bilaterally. Absent: respiratory distress, wheezes, rales, rhonchi, stridor CARDIOVASCULAR EXAM: regular rate, normal rhythm, normal heart sounds. Absent: systolic murmur, diastolic murmur, rubs, gallop, clicks GI/ABDOMINAL EXAM: soft, normal bowel sounds. Absent: distended, tenderness, guarding, rebound, rigid EXTREMITIES EXAM: No bilateral pitting edema. NEUROLOGICAL EXAM: alert, oriented X3, no focal neurological deficits. - Labs CBC & Chem 7: 12/16/18 07:22 12/15/18 02:34 Labs: Abnormal Lab Results - Last 24 Hours (Table) 12/16/18 Range/Units 07:22 Cholesterol 200 H (<200) mg/dL LDL Cholesterol, Calc 113 H (0-99) mg/dL HDL Cholesterol 71 H (40-60) mg/dL Assessment and Plan Assessment: ASSESSMENT Atypical chest pain History of coronary artery disease status post stenting Former smoking Hypertension Chronic low back pain History of CVA in July 2017 PLAN: Patient had serial troponins and EKGs within normal limits. Patient is scheduled for a cardiac stress test on Monday morning. Continue with the rest of the current medication regimen. Cardiology on board. Further recommendations to follow depending on the progress of the patient.
--- NOTE | 2018-12-16 13:16 | P.PN ---
Subjective This is Namrata Tan PA-C dictating a progress note on this patient The patient was interviewed and examined by me as well as by Dr. Shah Case discussed with Dr. Shah and he agrees with the plan of care IMPRESSION / ASSESSMENT: Atypical chest discomfort, still having brief intermittent episodes of chest discomfort, troponins negative 4, no ST changes noted on EKG History of CAD status post stenting Dyslipidemia, LDL 113, not on a statin hypertension Former smoker PLAN: Start atorvastatin 40 mg daily Dobutamine stress echo on Monday HPI/interval history Patient is a 63-year-old female with a past medical history of CAD status post stenting who presented with complaints of chest discomfort. EKG showed sinus rhythm with left bundle branch block. Troponins negative 3. Patient seen and examined resting in bed. She had a few more intermittent episodes of chest discomfort overnight, described it as a squeezing sensation on her left side, lasted only about a minute. Denies shortness of breath, diaphoresis, nausea, dizziness, syncope. EXAMINATION Patient is afebrile, pulse 60, respirations 18, blood pressure 92/63, respirations 100% on room air Patient seen and examined resting comfortably in bed, in no acute distress Lungs are clear to auscultation bilaterally Heart is regular, normal S1-S2, soft systolic murmur appreciated No lower extremity edema noted REVIEW OF LABS, ECG D-dimer negative WBC 6.2, hemoglobin 11.6, potassium 3.9, BUN 10, creatinine 0.8 2 Troponin negative 4 Total cholesterol 200, triglycerides 79, LDL 113, HDL 71 Objective - Vital Signs Vital signs: Vital Signs Temp 97.9 F 12/16/18 11:54 Pulse 63 12/16/18 11:54 Resp 18 12/16/18 11:54 BP 156/84 12/16/18 11:54 Pulse Ox 99 12/16/18 11:54 Intake & Output 12/15/18 12/16/18 12/16/18 18:59 06:59 18:59 Intake Total 46.358 Balance 46.358 Weight 62.142 kg Intake: Intake, IV Titration 46.358 Amount Heparin Sod,Pork in 0.45% 46.358 NaCl 25,000 unit In 0.45 % NaCl 1 250ml.bag @ 12 UNITS/KG/HR 7.457 mls/hr IV .Q24H DORIS Rx#: [id number] Other: Voiding Method Toilet Toilet Toilet # Voids 2 1 1 - Labs CBC & Chem 7: 12/16/18 07:22 12/15/18 02:34 Labs: Abnormal Lab Results - Last 24 Hours (Table) 12/16/18 Range/Units 07:22 Cholesterol 200 H (<200) mg/dL LDL Cholesterol, Calc 113 H (0-99) mg/dL HDL Cholesterol 71 H (40-60) mg/dL
[2018-12-16] MEDS: BACLOFEN 10 MG TAB PO PRN ×2 (15:10→21:08)
[2018-12-16] MEDS ORDERED: ATORVASTATIN 40 MG TAB PO SCH (21:00)
[2018-12-17] MEDS ORDERED: DOBUTamine DRIP for NUC MED 500 MG in DEXTROSE/WATER 1 250ML.BAG IV ONE (06:00)
[2018-12-17] MEDS ORDERED: LOSARTAN 25 MG TAB PO SCH (09:00)
[2018-12-17] MEDS ORDERED: ASPIRIN 81 MG PO SCH (09:00)
--- NOTE | 2018-12-17 10:57 | P.PN ---
Subjective This is a pleasant 63-year-old female past medical history significant for coronary artery disease status post stent placement, hypertension, dyslipidemia and former nicotine dependence. She follows my office with Dr. Granados. She continues to describe intermittent episodes of a heavy sensation across the chest. Sometimes this occurs at rest sometimes with activity. No specific aggravating or alleviating factor. She also complains of palpitations this morning while getting up and washing her face. Telemetry tracings have been unremarkable. Blood pressure 106/68 heart rate 52 afebrile maintaining oxygen saturation on room air. Most recent echocardiogram obtained September 2018 reveals preserved LV systolic function with ejection fraction 55%, mild mitral regurgitation. GENERAL: Well-appearing, well-nourished and in no acute distress. NECK: Supple without JVD or thyromegaly. LUNGS: Breath sounds clear to auscultation bilaterally. Respiration equal and unlabored. No wheezes, rales or rhonchi. HEART: Regular rate and rhythm with systolic ejection murmur at the left sternal border, no rubs or gallops. S1 and S2 heard. EXTREMITIES: Normal range of motion, no edema. No clubbing or cyanosis. Peripheral pulses intact. ASSESSMENT Chest pain, atypical. An acute coronary event has been ruled out Coronary artery disease status post stent placement Hypertension Dyslipidemia Former nicotine dependence PLAN Proceed with stress test as previously ordered. If stress test is normal she is stable from a cardiac perspective, follow-up with Dr. Granados in 2 weeks. Nurse Practitioner note has been reviewed, I agree with a documented findings and plan of care. Patient was seen and examined. Objective - Vital Signs Vital signs: Vital Signs Temp 97.5 F L 12/17/18 07:05 Pulse 52 L 12/17/18 07:05 Resp 16 12/17/18 07:05 BP 106/68 12/17/18 07:05 Pulse Ox 94 L 12/17/18 07:05 Intake & Output 12/16/18 12/17/18 12/17/18 18:59 06:59 18:59 Other: Voiding Method Toilet Toilet Toilet # Voids 2 1 - Labs CBC & Chem 7: 12/16/18 07:22 12/15/18 02:34
[2018-12-17 11:22] VITALS: BP 117/77; PULSE 61; RESP 18; TEMP 97.7
[2018-12-17] MEDS: CLOPIDOGREL 75 MG TAB PO SCH (12:37)
[2018-12-17] MEDS: BACLOFEN 10 MG TAB PO PRN (12:41)
--- NOTE | 2018-12-17 12:41 | ECHOS ---
STRESS ECHOCARDIOGRAM DOBUTAMINE ECHO INDICATIONS: Chest pain. MEDICATIONS: BASELINE HEART RATE: 68 BASELINE BLOOD PRESSURE: 117/74 MAXIMUM HEART RATE: 145 MAXIMUM BLOOD PRESSURE: 142/77 85% MPHR: 135 100% MPHR: 189 METS: MAXIMUM STAGE REACHED: TOTAL EXERCISE TIME: CLINICAL INFORMATION: Baseline EKG shows sinus rhythm with left bundle branch block. The patient was given intravenous dobutamine over a period of 8 minutes as per protocol. Did not have chest pain and the EKG changes are inconclusive. Baseline echo shows normal left ventricular size, atypical septal motion secondary to left bundle branch block with normal LV function. Post dobutamine infusion, there is normal hyperdynamic response of all segments of myocardium noted. CONCLUSIONS: 1. Inconclusive EKG part of the stress test due to left bundle branch block. 2. Negative Dobutamine echo. MMODL / IJN: [id number] /
--- NOTE | 2018-12-17 21:20 | P.DS ---
Providers Date of admission: 12/15/18 00:47 Expected date of discharge: 12/17/18 Attending physician: Emily Correa Consults: 12/15/18 00:45 Consult Physician Urgent Consulting Provider: [facility] Consult Reason/Comments: chest pain Do you want consulting provider notified?: Yes, Notify in am Primary care physician: [facility] Course: Ms. Adorno is a 63-year-old female with a past medical history of coronary artery disease, CVA/TIA, hypertension, [place], osteoarthritis coming into the hospital with a chief complaint of chest pain. Patient reports chest pain is mostly on the left side of the chest associated with some shortness of breath going on for the past 1-2 weeks. The chest pain is not there constantly but it comes on and off, sometimes with exertional in nature as she felt that the chest pain was more pronounced when she was trying to lift some heavy boxes and furniture. Patient denies having any diaphoresis dizziness or lightheadedness associated with the chest pain. Dr. Null is her diesel instructor and he recommended that she get a stress test but she canceled it. She was admitted at an outside hospital and transferred here due to her extensive cardiac history. In the ER patient had an EKG showing left bundle branch block and her troponins have been negative 3. In the emergency department patient was started on IV heparin and admitted to the observation unit. Patient has been evaluated by the diesel instructor and her heparin has been discontinued. Hospital course - she had a Dobutamine stress echo that was negative for any inducible ischemia and so cleared by Cardiology for discharge. - Vital Signs Vital signs: Vital Signs Temp 97.5 F L 12/17/18 07:05 Pulse 52 L 12/17/18 07:05 Resp 16 12/17/18 07:05 BP 106/68 12/17/18 07:05 Pulse Ox 94 L 12/17/18 07:05 DISCHARGE DIAGNOSIS Atypical chest pain History of coronary artery disease status post stenting Former smoking Hypertension Chronic low back pain History of CVA in July 2017 Plan - Patient is discharged home in a stable condition , to have a follow up with her PCP and Board Certified Family Physician in 3-5 days. Patient Condition at Discharge: Stable Plan - Discharge Summary Discharge Rx Participant: No New Discharge Prescriptions: New Losartan [Cozaar] 25 mg PO BID #60 tab Pravastatin Sodium [Pravachol] 40 mg PO DAILY #30 tab Continue Clopidogrel [Plavix] 75 mg PO DAILY Aspirin 81 mg PO DAILY chew Baclofen 10 mg PO QID Nitroglycerin Sl Tabs [Nitrostat] 0.4 mg SUBLINGUAL Q5M PRN #30 tab PRN Reason: Chest Pain Discontinued Olmesartan Medoxomil 10 mg PO BID Discharge Medication List Clopidogrel [Plavix] 75 mg PO DAILY 07/28/17 [History] Aspirin 81 mg PO DAILY chew 08/22/17 [Rx] Baclofen 10 mg PO QID 12/30/17 [History] Nitroglycerin Sl Tabs [Nitrostat] 0.4 mg SUBLINGUAL Q5M PRN #30 tab 10/16/18 [Rx] Losartan [Cozaar] 25 mg PO BID #60 tab 12/17/18 [Rx] Pravastatin Sodium [Pravachol] 40 mg PO DAILY #30 tab 12/17/18 [Rx] Follow up Appointment(s)/Referral(s): Rhett Granados MD [STAFF PHYSICIAN] - 01/01/19 11:30 am Myles Lamar DO [Primary Care Provider] - 12/20/18 10:20 am Discharge Disposition: HOME SELF-CARE
== END 2018-12-17 14:21 | disposition home or self-care (01) ==
LOC: EC 00:33 → 1SOBS 00:47
PROVIDERS: ADMIT Hospitalist; ATTEND Hospitalist
DX: R07.89 Other chest pain (principal); R06.02 Shortness of breath; I25.10 Atherosclerotic heart disease of native coronary artery without angina pectoris; I10 Essential (primary) hypertension; G89.29 Other chronic pain; M54.5 Low back pain; I25.2 Old myocardial infarction; M19.90 Unspecified osteoarthritis, unspecified site; E78.5 Hyperlipidemia, unspecified; R00.2 Palpitations; F41.9 Anxiety disorder, unspecified; I44.7 Left bundle-branch block, unspecified; Z95.5 Presence of coronary angioplasty implant and graft; Z96.643 Presence of artificial hip joint, bilateral; Z87.891 Personal history of nicotine dependence; Z86.73 Personal history of transient ischemic attack (TIA), and cerebral infarction without residual deficits; Z91.19 Patient's noncompliance with other medical treatment and regimen; Z79.02 Long term (current) use of antithrombotics/antiplatelets; Z79.82 Long term (current) use of aspirin; Z79.899 Other long term (current) drug therapy; Z91.048 Other nonmedicinal substance allergy status; Z82.49 Family history of ischemic heart disease and other diseases of the circulatory system; Z80.8 Family history of malignant neoplasm of other organs or systems; Z80.0 Family history of malignant neoplasm of digestive organs; Z83.49 Family history of other endocrine, nutritional and metabolic diseases
CPT/HCPCS: 96366; 96365; 99285; 93005; 93351; 85379; 80061; 80053; 83735; 84484; 85025; 85049 ×2; 85610; 85730; G0378 ×3; J1250; J1644

== ENCOUNTER 2019-01-04 19:26 | Observation (INO) | payer MEDICARE ==
[2019-01-04 20:10] LABS: Basophils # (A) 0.1 k/uL (0-0.2); Basophils % (A) 2 %; Eosinophils # (A) 0.2 k/uL (0-0.7); Eosinophils % (A) 5 %; HCT 39.8 % (34.0-46.0); HGB 13.3 gm/dL (11.4-16.0); Lymphocytes # (A) 1.5 k/uL (1.0-4.8); Lymphocytes % (A) 30 %; MCH 29.6 pg (25.0-35.0); MCHC 33.5 g/dL (31.0-37.0); MCV 88.2 fL (80.0-100.0); Mean Platelet Volume 7.1; Monocytes # (A) 0.3 k/uL (0-1.0); Monocytes % (A) 6 %; Neutrophils # (A) 2.8 k/uL (1.3-7.7); Neutrophils % (A) 56 %; Platelet Count 333 k/uL (150-450); RBC 4.51 m/uL (3.80-5.40); RDW 14.9 % (11.5-15.5); WBC 4.9 k/uL (3.8-10.6)
[2019-01-04 20:21] LABS: INR 0.9 (<1.2); Prothrombin Time 9.7 sec (9.0-12.0)
[2019-01-04 20:26] LABS: ALT 19 U/L (9-52); AST 31 U/L (14-36); African American GFR (CKD) >90 (>60 ml/min/1.73 sqM); Albumin 4.4 g/dL (3.5-5.0); Alkaline Phosphatase 86 U/L (38-126); Anion Gap 8 mmol/L; Blood Urea Nitrogen 7 mg/dL (7-17); Calcium 9.6 mg/dL (8.4-10.2); Carbon Dioxide 25 mmol/L (22-30); Chloride 106 mmol/L (98-107); Glucose 94 mg/dL (74-99); Magnesium 2.2 mg/dL (1.6-2.3); Non-African American GFR(CKD) 86 (>60 ml/min/1.73 sqM); Sodium 139 mmol/L (137-145); Total Bilirubin 0.5 mg/dL (0.2-1.3); Total Protein 7.6 g/dL (6.3-8.2)
--- NOTE | 2019-01-04 20:55 | XR ---
EXAMINATION TYPE: XR chest 2V DATE OF EXAM: 01/04/2019 COMPARISON: 12/14/2018 HISTORY: Chest pain TECHNIQUE: Frontal and lateral views of the chest are obtained. FINDINGS: Heart and mediastinum are normal. Lungs are clear. Diaphragm is normal. There are chest le ads. Bony thorax is intact. IMPRESSION: No active cardiopulmonary disease. Normal heart. No change.
[2019-01-04] MEDS ORDERED: ASPIRIN 81 MG PO STA (21:06)
[2019-01-04] MEDS ORDERED: NALOXONE 0.4 MG/ML 1 ML VIAL IV PRN (21:50)
--- NOTE | 2019-01-04 21:50 | ED ---
Chest Pain HPI - General Chief Complaint: Chest Pain Stated Complaint: Chest Pain Source: patient, EMS Mode of arrival: EMS Limitations: no limitations - History of Present Illness Initial Comments: The patient is a 63-year-old female presents to the emergency department with reported chest pain for the past 3 days. She states it has been intermittent however today became severe and constant. She describes it as a left-sided chest pain with also a wrapping pressure sensation. Does make her feel mildly short of breath. She denies any nausea or diaphoresis. She does have a history of cardiac disease. She had a heart attack with stent placement in the beginning of 2017. States that this is last him that she had a cath performed. She has had some intermittent chest pain. She did have a stress test performed on December 17 which was normal. States she follows a Dr. Granados in office. When the patient symptoms started today she did call EMS. They did provide her with nitro which did greatly improve the patient's symptoms. She does arrive to the hospital and states that her pain is essentially gone. She denies ripping or tearing sensation to her back. Denies a pleuritic chest pain. Denies a cough, fevers or chills. No hemoptysis. Denies abdominal pain. No changes in her bowel or bladder habits. There are no alleviating, precipitating or modifying factors - Related Data Home Medications Medication Instructions Recorded Confirmed Clopidogrel [Plavix] 75 mg PO DAILY 07/28/17 01/05/19 Baclofen 10 mg PO QID 12/30/17 01/05/19 Pravastatin Sodium [Pravachol] 40 mg PO HS 01/04/19 01/05/19 Previous Rx's Medication Instructions Recorded Aspirin 81 mg PO DAILY chew 08/22/17 Nitroglycerin Sl Tabs [Nitrostat] 0.4 mg SUBLINGUAL Q5M PRN #30 tab 10/16/18 Losartan [Cozaar] 25 mg PO BID tab 01/05/19 Allergies Allergy/AdvReac Type Severity Reaction Status Date / Time adhesive tape Allergy SKIN TEAR Verified 01/05/19 00:18 Review of Systems ROS Statement: Those systems with pertinent positive or pertinent negative responses have been documented in the HPI. ROS Other: All systems not noted in ROS Statement are negative. EKG Findings - EKG Comments: EKG Findings:: EKG demonstrates a sinus rhythm with a ventricular rate of 63. KS Interval 162. QRS 134. QTC 466. There is a left bundle branch block. No sgarbossa criteria Past Medical History Past Medical History: Coronary Artery Disease (CAD), Chest Pain / Angina, CVA/TIA, Hypertension, Myocardial Infarction (MT), Osteoarthritis (OA), Syncope Additional Past Medical History / Comment(s): Degenerative disc disease, chronic back pain, CVA 07/2017- left with weakness on right on and off Last Myocardial Infarction Date:: 09/2017 History of Any Multi-Drug Resistant Organisms: None Reported Past Surgical History: Heart Catheterization With Stent, Joint Replacement Additional Past Surgical History / Comment(s): Ectopic , loop monitor, 3 stents, Total hip bilat Past Anesthesia/Blood Transfusion Reactions: No Reported Reaction Additional Past Anesthesia/Blood Transfusion Reaction / Comment(s): after hip replacement last time had very slow pulse Date of Last Stent Placement:: 05/2017 Past Psychological History: Anxiety Smoking Status: Former smoker Past Alcohol Use History: None Reported Past Drug Use History: None Reported - Past Family History Mother Family Medical History: Cancer, Hypertension Additional Family Medical History / Comment(s): Bone,blood,pancreatic CA Father Family Medical History: Cancer, Hypertension, Thyroid Disorder Additional Family Medical History / Comment(s): Small Cell Carcoma CA General Exam Limitations: no limitations General appearance: alert, in no apparent distress Head exam: Present: atraumatic, normocephalic, normal inspection Eye exam: Present: normal appearance, PERRL, EOMI. Absent: scleral icterus, conjunctival injection, periorbital swelling ENT exam: Present: normal exam, mucous membranes moist Neck exam: Present: normal inspection. Absent: tenderness, meningismus, lymphadenopathy Respiratory exam: Present: normal lung sounds bilaterally. Absent: respiratory distress, wheezes, rales, rhonchi, stridor Cardiovascular Exam: Present: regular rate, normal rhythm, normal heart sounds. Absent: systolic murmur, diastolic murmur, rubs, gallop, clicks GI/Abdominal exam: Present: soft, normal bowel sounds. Absent: distended, tenderness, guarding, rebound, rigid Extremities exam: Present: normal inspection, full ROM, normal capillary refill. Absent: tenderness, pedal edema, joint swelling, calf tenderness Back exam: Present: normal inspection Neurological exam: Present: alert, oriented X3, CN II-XII intact Psychiatric exam: Present: normal affect, normal mood Skin exam: Present: warm, dry, intact, normal color. Absent: rash Course Vital Signs 01/04/19 01/04/19 01/04/19 19:26 20:10 20:40 Temperature 98.0 F Pulse Rate 66 56 L 69 Respiratory 18 18 16 Rate Blood Pressure 129/85 130/80 141/81 O2 Sat by Pulse 99 97 96 Oximetry 01/04/19 01/04/19 01/04/19 21:10 21:40 22:10 Temperature Pulse Rate 61 74 63 Respiratory 18 16 19 Rate Blood Pressure 128/83 134/76 105/68 O2 Sat by Pulse 97 96 95 Oximetry 01/04/19 01/04/19 22:40 23:07 Temperature Pulse Rate 63 76 Respiratory 17 16 Rate Blood Pressure 94/64 101/69 O2 Sat by Pulse 94 L 98 Oximetry Chest Pain MDM - MDM Upon arrival the patient is placed in room 2. She is hooked up to continuous pulse ox and cardiac monitoring. A 12-lead EKG is performed and the patient which demonstrates no new findings from previous EKG. The patient is pain-free at this time. We did provide her with a chewable aspirin. I did recommend laboratory studies as well as a chest x-ray. The imaging was performed of the results are discussed patient. Discussed diagnosis, differential and treatment options. The patient does have chest pain responsive to nitro I did recommend admission to the hospital for a cardio consultation. The patient agreed to this. She will be admitted to [facility]. Bridging orders were placed. We will continue to trend the patient's troponins. She remained in pain-free condition was transported to floor Disposition Clinical Impression: Chest pain Disposition: ADMITTED IP TO THIS HOSP Condition: Stable Is patient prescribed a controlled substance at d/c from ED?: No Decision to Admit Reason: Admit from EC Decision Date: 01/04/19 Decision Time: 21:50
[2019-01-04 23:28] VITALS: RESP 18
[2019-01-05] MEDS: BACLOFEN 10 MG TAB PO SCH ×2 (01:17→09:17)
[2019-01-05 08:16] VITALS: TEMP 97.5
[2019-01-05 09:00] LABS: Basophils # (A) 0.1 k/uL (0-0.2); Basophils % (A) 1 %; Eosinophils # (A) 0.2 k/uL (0-0.7); Eosinophils % (A) 5 %; HCT 38.8 % (34.0-46.0); HGB 12.3 gm/dL (11.4-16.0); Lymphocytes % (A) 42 %; MCH 28.9 pg (25.0-35.0); MCHC 31.7 g/dL (31.0-37.0); Mean Platelet Volume 7.1; Monocytes # (A) 0.3 k/uL (0-1.0); Monocytes % (A) 6 %; Neutrophils # (A) 2.1 k/uL (1.3-7.7); Neutrophils % (A) 45 %; Platelet Count 351 k/uL (150-450); RBC 4.27 m/uL (3.80-5.40); RDW 14.5 % (11.5-15.5); WBC 4.7 k/uL (3.8-10.6)
[2019-01-05] MEDS ORDERED: CLOPIDOGREL 75 MG TAB PO SCH (09:00)
[2019-01-05] MEDS ORDERED: ASPIRIN 81 MG PO SCH (09:00)
[2019-01-05] MEDS ORDERED: LOSARTAN 25 MG TAB PO SCH (09:00)
[2019-01-05 09:10] LABS: Calcium 9.4 mg/dL (8.4-10.2); Potassium 4.1 mmol/L (3.5-5.1)
--- NOTE | 2019-01-05 09:44 | CONS ---
CONSULTATION This is a 63-year-old lady who is a smoker who quit smoking about 2 years ago. She was in the hospital not long ago, probably within the last month and had a dobutamine echo which was completely normal. She comes into the hospital with complaints of having discomfort in her chest. The quality of pain is atypical. It lasted almost an hour also. Her pain was basically atypical in nature, sharp, which came and went. Quality of the pain is not suggestive of angina. She has had stenting in the past at an outside facility. However, dobutamine echo on December 15 of this year was normal. At the time of my evaluation, she is asymptomatic, resting comfortably. The details of her coronary stenting are not available to me at the time of my evaluation. She is resting comfortably without symptoms and troponins are unremarkable. On reviewing the old record in some detail, I noted that she had prior stenting of RCA and circumflex and diagonal branch of LAD and this was done in the past and the last cardiac cath from May 2017 revealed that the stent in the circumflex was patent and the stent in the diagonal was patent and proximal RCA had a patent stent without significant disease. LV systolic function was also normal. The LAD was free of significant disease. Her recent stress test was normal. PAST MEDICAL HISTORY: 1. Remarkable for CAD with multivessel stenting with patent vessels based on the cardiac cath in May and dobutamine stress test negative 2 weeks ago. 2. Hypertension. 3. Hyperlipidemia. SOCIAL HISTORY: Past history of smoking. PHYSICAL EXAMINATION: Blood pressure is 120/70, pulse rate is 58 per minute and regular. HEENT unremarkable. Fundus was not examined by me. Neck is supple. No JVD. I do not hear a carotid bruit. There is no thyromegaly. Heart exam reveals S1, S2 with a short systolic murmur. Lungs are clear. Abdomen is soft, nontender. Lower extremities reveal normal pulses. No edema. Central nervous system is normal. EKG revealed sinus mechanism, left bundle. IMPRESSION: 1. Atypical chest pain in a patient with multivessel PCI in the past, but patent vessels on a cardiac cath in May 2017 and a normal dobutamine stress echo 2 weeks ago. 2. Hypertension. 3. Hyperlipidemia. 4. Past history of smoking. RECOMMENDATIONS: This patient can be discharged on medical therapy. Her pain is atypical. Recent testing is negative. We will increase activity and if she has no further symptoms, she can be discharged. Thank you very much for the consult. DIMITRI / ARPIT: [id number] /
[2019-01-05 10:05] VITALS: BP 114/74; PULSE 62
[2019-01-05] MEDS ORDERED: PRAVASTATIN SODIUM 40 MG TAB PO SCH (21:00)
--- NOTE | 2019-01-05 23:18 | HP ---
HISTORY AND PHYSICAL HISTORY AND PHYSICAL/DISCHARGE SUMMARY: This is a combined history and physical/discharge summary. DATE OF SERVICE: 01/05/2019 CHIEF COMPLAINT: Chest pain. HISTORY OF PRESENT ILLNESS: This 63-year-old woman with a past medical history of multiple medical problems including CAD, history of chest pain, CVA, TIA, hypertension, myocardial infarction, syncope, DJD, history of CAD stent being followed by Dr. Myles Lamar in the outpatient, complaining of chest pain. The pain was felt in the anterior part of the chest and the patient is also on both sides, which is intermittent in character and mostly it was on the left side also. The pressure ulcers also described. There is no radiation. No associated sweating or palpitations. Patient came to [facility] and was admitted for further evaluation and treatment. Myocardial infarction ruled out. Cardiology saw the patient, recommended outpatient followup. The troponins are negative at this time. There is no history of fever, rigors or chills. PAST MEDICAL HISTORY: History of CAD, CVA, TIA, hypertension, myocardial infarction, DJD, history of syncope, history of CAD/stent. MEDICATIONS: Home medications are: 1. Pravachol 40 mg p.o. q.h.s. 2. Plavix 75 mg p.o. 3. Baclofen 10 mg p.o. q.i.d. 4. Aspirin 81 mg p.o. 5. Cozaar 25 mg p.o. b.i.d. ALLERGIES: ADHESIVE TAPES. FAMILY HISTORY: History of cancer, hypertension, pancreatic cancer. SOCIAL HISTORY: Previous history of smoking. No history of current smoking or alcohol intake. REVIEW OF SYSTEMS: ENT: No diminished hearing. No diminished vision. CARDIOVASCULAR as mentioned earlier. RESPIRATORY: As mentioned earlier. GI no nausea or vomiting. no dysuria. NERVOUS SYSTEM: No numbness. No weakness. ALLERGY/IMMUNOLOGY: No asthma or hayfever. MUSCULOSKELETAL as mentioned earlier. HEMATOLOGY/ONCOLOGY: No history of anemia. ENDOCRINE: No history of diabetes or hypothyroidism. CONSTITUTIONAL: As mentioned earlier. DERMATOLOGY: Negative. RHEUMATOLOGY: Negative. PSYCHIATRY: As mentioned earlier. PHYSICAL EXAM: Patient is alert, oriented x3. The pulse is 53, blood pressure 124/79, respiration 18, temp 97.5, pulse ox 98% on room air. HEENT: Oral mucosa moist. NECK is no jugular venous distention. No carotid bruit. No lymph node enlargement. Cardiovascular system: S1, S2. No S3, no S4. RESPIRATIONS: Breath sounds diminished in the bases. No rhonchi. No crackles. ABDOMEN: Soft, nontender. No mass palpable. LEGS: No edema. No swelling. NERVOUS SYSTEM: Higher functions as mentioned earlier. Moves all four limbs. No focal deficits. Lymphatics: No lymph nodes palpable in the neck, axillae or groin. SKIN: No ulcer, rash or bleeding. JOINTS: No deformity. LABS: At this time shows CBC, BMP within normals. ASSESSMENT: 1. Chest pain possibly musculoskeletal, myocardial infarction ruled out. 2. History of coronary artery disease/ stent. 3. History of cerebrovascular accident, transient ischemic attack. 4. Hypertension. 5. History of myocardial infarction. 6. History of degenerative joint disease. 7. History of syncope. 8. History of chronic back pain. 9. History of chronic obstructive pulmonary disease. 10.History of ectopic . 11.History of anxiety. 12.Remote history of nicotine dependence. 13.FULL CODE. RECOMMENDATIONS AND DISCUSSION: This 63-year-old woman who presented with chest pain, was evaluated by Cardiology. Cardiology recommended continue the home medications. Follow up outpatient. Otherwise, myocardial infarction ruled out. The patient could be having a musculoskeletal chest pain, but however I recommend close followup with primary physician as well as Cardiology follow up. DISCHARGE ADVICE AND MEDICATIONS: Discharge medications will be as follows: 1. Diet will be cardiac diet. 2. Activity limited until followup. 3. Follow up with primary physician, Dr. Lamar in 2-3 days. 4. Follow up with Cardiology as recommended. DISCHARGE MEDICATIONS: 1. Baclofen 10 mg p.o. q.i.d. 2. Cozaar 25 mg p.o. daily. 3. Plavix 75 mg p.o. daily. 4. Pravachol 40 mg q.h.s. 5. Aspirin 81 mg p.o. daily. 6. Cozaar 25 mg p.o. b.i.d. 7. Nitrostat 0.4 mg p.r.n. Once again, the patient is being discharged in a stable condition with guarded prognosis. Noted this is a combined history and discharge summary. Please note that the recent stress test was negative as noted by Dr. Romana Orellana. MMODL / IJN: [id number] /
== END 2019-01-05 13:15 | disposition home or self-care (01) ==
LOC: EC 19:26 → 1SOBS 21:50
PROVIDERS: ADMIT Hospitalist; ATTEND Hospitalist
DX: R07.89 Other chest pain (principal); I10 Essential (primary) hypertension; J44.9 Chronic obstructive pulmonary disease, unspecified; E78.5 Hyperlipidemia, unspecified; I44.7 Left bundle-branch block, unspecified; I25.10 Atherosclerotic heart disease of native coronary artery without angina pectoris; F41.9 Anxiety disorder, unspecified; M19.90 Unspecified osteoarthritis, unspecified site; G89.29 Other chronic pain; M54.9 Dorsalgia, unspecified; I69.951 Hemiplegia and hemiparesis following unspecified cerebrovascular disease affecting right dominant side; Z79.02 Long term (current) use of antithrombotics/antiplatelets; Z79.82 Long term (current) use of aspirin; Z79.899 Other long term (current) drug therapy; Z91.048 Other nonmedicinal substance allergy status; Z96.643 Presence of artificial hip joint, bilateral; I25.2 Old myocardial infarction; Z95.5 Presence of coronary angioplasty implant and graft; Z87.891 Personal history of nicotine dependence; Z86.79 Personal history of other diseases of the circulatory system; Z87.59 Personal history of other complications of pregnancy, childbirth and the puerperium; Z82.49 Family history of ischemic heart disease and other diseases of the circulatory system; Z80.0 Family history of malignant neoplasm of digestive organs; Z80.8 Family history of malignant neoplasm of other organs or systems; Z83.42 Family history of familial hypercholesterolemia
CPT/HCPCS: 99285; 36415; 93005; 83880; 80053; 80048; 83735; 84484 ×2; 85025 ×2; 85610; 85730; 71046; G0378 ×2

== ENCOUNTER 2019-02-12 23:16 | Emergency (ER) | payer MEDICARE ==
--- NOTE | 2019-02-13 10:09 | XR ---
EXAMINATION TYPE: XR chest 2V DATE OF EXAM: 02/13/2019 COMPARISON: Prior chest x-ray 01/04/2019 HISTORY: Weakness TECHNIQUE: Frontal and lateral views of the chest are obtained. FINDINGS: There are overlying cardiac leads. Loop recorder is present over the left heart region. The re are coronary artery calcifications, possible stent. There is no focal air space opacity, pleural e ffusion, or pneumothorax seen. The cardiac silhouette size is within normal limits. The osseous st ructures are intact. IMPRESSION: No acute cardiopulmonary process.
[2019-02-13 10:26] LABS: INR 0.9 (<1.2); Partial Thromboplastin Time 27.1 sec (22.0-30.0); Prothrombin Time 9.7 sec (9.0-12.0)
[2019-02-13 10:55] LABS: Basophils # (A) 0.1 k/uL (0-0.2); Basophils % (A) 1 %; Eosinophils # (A) 0.2 k/uL (0-0.7); Eosinophils % (A) 4 %; HGB 12.9 gm/dL (11.4-16.0); Lymphocytes # (A) 1.8 k/uL (1.0-4.8); Lymphocytes % (A) 30 %; MCH 28.2 pg (25.0-35.0); MCHC 31.5 g/dL (31.0-37.0); MCV 89.5 fL (80.0-100.0); Mean Platelet Volume 6.9; Monocytes # (A) 0.4 k/uL (0-1.0); Monocytes % (A) 6 %; Neutrophils # (A) 3.3 k/uL (1.3-7.7); Neutrophils % (A) 57 %; Platelet Count 319 k/uL (150-450); RBC 4.58 m/uL (3.80-5.40); RDW 13.1 % (11.5-15.5); WBC 5.9 k/uL (3.8-10.6)
[2019-02-13 11:06] LABS: Albumin 4.2 g/dL (3.5-5.0); Calcium 9.6 mg/dL (8.4-10.2); Potassium 3.9 mmol/L (3.5-5.1); Total Bilirubin 0.2 mg/dL (0.2-1.3); Total Protein 7.2 g/dL (6.3-8.2)
== END 2019-02-13 03:38 | disposition home or self-care (01) ==
LOC: EC 23:16
DX: I10 Essential (primary) hypertension (principal); R07.89 Other chest pain; F17.200 Nicotine dependence, unspecified, uncomplicated
CPT/HCPCS: 36415; 71046; 80053; 82550; 84484; 85025; 85610; 85730; 99285

== ENCOUNTER 2019-06-13 01:16 | Observation (INO) | payer MEDICARE ==
[2019-06-13] MEDS ORDERED: NITROGLYCERIN SL TABS 0.4 MG TAB SUBLINGUAL PRN (02:09)
--- NOTE | 2019-06-13 02:09 | ED ---
Arrhythmia/Palpitations HPI - General Source: patient Mode of arrival: EMS <Philly Richardson - Last Filed: 06/13/19 02:33> <David Braun - Last Filed: 06/13/19 06:54> - General Chief Complaint: Arrhythmia/Palpitations Stated Complaint: Heart Palp Time Seen by Provider: 06/13/19 01:30 - History of Present Illness Initial Comments: Patient is a 63-year-old female presenting to the emergency Department as a transfer from [facility]. Lab work and imaging were reviewed. Patient states she has been having palpitations for the last 2 weeks. Patient states the last 2 days they have been increasing and she started having mild chest pains that of been intermittent. Patient does have an extensive heart history including stents and a loop recorder present. She has previously seen Dr. Granados. She states she has had a recent stress test that was done 2 months ago. She does go to see a new seo marketing specialist in the [place] who monitors her loop recorder readings. She states her symptoms seem to come on more when she is cleaning her house or even sometimes when she is watching TV. She denies having chest pain at this time, no nausea, vomiting, dizziness. She has not had any syncopal episodes. She denies any shortness of breath. She has no other complaints at this time. Upon arrival to the ER her vitals are stable. (Philly Richardson) - Related Data Home Medications Medication Instructions Recorded Confirmed Clopidogrel [Plavix] 75 mg PO DAILY 07/28/17 06/13/19 Baclofen 10 mg PO TID 12/30/17 06/13/19 ALPRAZolam [Xanax] 0.5 mg PO TID PRN 06/13/19 06/13/19 Lisinopril [Prinivil] 10 mg PO DAILY 06/13/19 06/13/19 Previous Rx's Medication Instructions Recorded Aspirin 81 mg PO DAILY chew 08/22/17 Nitroglycerin Sl Tabs [Nitrostat] 0.4 mg SUBLINGUAL Q5M PRN #30 tab 10/16/18 Allergies Allergy/AdvReac Type Severity Reaction Status Date / Time adhesive tape Allergy SKIN TEAR Verified 06/13/19 04:44 Review of Systems ROS Other: All systems not noted in ROS Statement are negative. <Philly Richardson - Last Filed: 06/13/19 02:33> ROS Other: All systems not noted in ROS Statement are negative. <David Braun - Last Filed: 06/13/19 06:54> ROS Statement: Those systems with pertinent positive or pertinent negative responses have been documented in the HPI. Past Medical History Past Medical History: Coronary Artery Disease (CAD), Chest Pain / Angina, CVA/TIA, Hypertension, Myocardial Infarction ([place]), Osteoarthritis (OA), Syncope Additional Past Medical History / Comment(s): Degenerative disc disease, chronic back pain, CVA 07/2017- left with weakness on right on and off Last Myocardial Infarction Date:: 09/2017 History of Any Multi-Drug Resistant Organisms: None Reported Past Surgical History: Heart Catheterization With Stent, Joint Replacement Additional Past Surgical History / Comment(s): Ectopic , loop monitor, 3 stents, Total hip bilat Past Anesthesia/Blood Transfusion Reactions: No Reported Reaction Additional Past Anesthesia/Blood Transfusion Reaction / Comment(s): after hip replacement last time had very slow pulse Date of Last Stent Placement:: 05/2017 Past Psychological History: Anxiety Smoking Status: Former smoker Past Alcohol Use History: None Reported Past Drug Use History: None Reported - Past Family History Mother Family Medical History: Cancer, Hypertension Additional Family Medical History / Comment(s): Bone,blood,pancreatic CA Father Family Medical History: Cancer, Hypertension, Thyroid Disorder Additional Family Medical History / Comment(s): Small Cell Carcoma CA <Philly Richardson - Last Filed: 06/13/19 02:33> General Exam <Philly Richardson - Last Filed: 06/13/19 02:33> - General Exam Comments Initial Comments: GENERAL: Well-appearing, well-nourished and in no acute distress. HEAD: Atraumatic, normocephalic. EYES: Pupils equal round and reactive to light, extraocular movements intact, sclera anicteric, conjunctiva are normal. ENT: TMs normal, nares patent, oropharynx clear without exudates. Moist mucous membranes. NECK: Normal range of motion, supple without lymphadenopathy or JVD. LUNGS: Breath sounds clear to auscultation bilaterally and equal. No wheezes rales or rhonchi. HEART: Regular rate and rhythm without murmurs, rubs or gallops. ABDOMEN: Soft, nontender, normoactive bowel sounds. No guarding, no rebound. No masses appreciated. : Deferred EXTREMITIES: Normal range of motion, no pitting or edema. No clubbing or cyanosis. NEUROLOGICAL: Normal speech, normal gait. PSYCH: Normal mood, normal affect. SKIN: Warm, Dry, normal turgor, no rashes or lesions noted. (Philly Richardson) Course Vital Signs 06/13/19 06/13/19 06/13/19 01:40 01:49 01:56 Temperature 98.6 F Pulse Rate 63 57 L Pulse Rate [ 58 L Recycling Manager ] Respiratory 19 19 Rate Blood Pressure 127/88 127/88 O2 Sat by Pulse 98 95 Oximetry 06/13/19 06/13/19 03:00 04:12 Temperature 98.6 F Pulse Rate 79 56 L Pulse Rate [ Recycling Manager ] Respiratory 19 17 Rate Blood Pressure 122/81 122/81 O2 Sat by Pulse 99 94 L Oximetry EKG Findings - EKG Comments: EKG Findings:: Ventricular rate 66, DC interval 168, QTC 480. Normal sinus rhythm. Left bundle branch block. No acute ST segment elevations. Similar to previous EKG on 02/12/2019. <Philly Richardson - Last Filed: 06/13/19 02:33> Medical Decision Making <Philly Richardson - Last Filed: 06/13/19 02:33> <Dvaid Braun - Last Filed: 06/13/19 06:54> - Medical Decision Making Patient 63-year-old female presenting as a transfer [facility] for palpitations have been increasing over the past 2 weeks. Patient has extensive heart history including stents and currently has a blue per Courter. She sees a seo marketing specialist in [place] for her little monitoring's. Patient's vitals are stable. Lab work and imaging from [facility] are not impressive. EKG showed left bundle bethany block which has been there previously. No other acute abnormalities. Chest x-ray shows chronic changes no acute abnormalities. Troponin was normal at approximately 10 PM. Patient is currently symptom free. Patient will be admitted to observation for serial troponin and cardiac consult. Patient is agreement with this plan of care. Case discussed with Dr. Braun. (Philly Richardson) I saw this patient in conjunction with the physician assistant cross country coach. I performed independent history and physical exam. Agree with case management. (David Braun) - Lab Data Lab Results 06/13/19 Range/Units 03:10 Troponin I <0.012 (0.000-0.034) ng/mL Disposition Is patient prescribed a controlled substance at d/c from ED?: No Decision Date: 06/13/19 Decision Time: 02:09 <Philly Richardson - Last Filed: 06/13/19 02:33> <David Braun - Last Filed: 06/13/19 06:54> Clinical Impression: Heart palpitations, LBBB (left bundle branch block), Chest pain Disposition: ADMITTED IP TO THIS HOSP Condition: Stable
[2019-06-13 08:32] VITALS: RESP 18
[2019-06-13] MEDS ORDERED: LISINOPRIL 10 MG TAB PO SCH (09:00)
[2019-06-13] MEDS ORDERED: CLOPIDOGREL 75 MG TAB PO SCH (09:00)
[2019-06-13] MEDS ORDERED: ASPIRIN 81 MG PO SCH (09:00)
[2019-06-13] MEDS ORDERED: ALPRAZolam 0.5 MG TAB PO PRN (10:20)
[2019-06-13] MEDS ORDERED: BACLOFEN 10 MG TAB PO PRN (10:20)
--- NOTE | 2019-06-13 11:06 | P.CRDCN ---
History of Present Illness History of present illness: HISTORY OF PRESENTING ILLNESS This is a pleasant 63-year-old female past medical history significant for coronary artery disease status post PCI, hypertension, frequent palpitations with a loop recorder in place, former nicotine dependence and anxiety. She follows in the office with Dr. Granados. We have been asked to see in consultation for palpitations and chest pain. She'll presented to [facility] secondary to shortness of breath and palpitations and was sent here for further evaluation. She states she has been feeling intermittent episodes of tachycardia over the previous 2 weeks. More specifically in the last 2 days it has been more frequent and associated with a discomfort in the chest as well as shortness of breath. She states at home as she is doing simple tasks such as vacuuming she will feel her heart race and become short of breath. She is seen and examined sitting up in no acute distress. She denies any symptoms of chest pain, shortness of breath, dizziness or palpitations currently. She underwent chest x-ray and baseline laboratory values at [facility]. Chest x-ray was negative for acute cardiopulmonary process and the initial set of cardiac enzymes were negative. She is currently maintained on aspirin 81 mg daily, Plavix 75 mg daily and lisinopril 10 mg daily. She is intolerant to statins and refuses to take them. She states she has been trialed on numerous heart rate lowering drugs in the past such as Cardizem and Lopressor which all seem to cause bradycardia. Telemetry tracings since admission have been unremarkable for an acute arrhythmia. This morning between 7 and 8 AM she was having episodes of sinus bradycardia while sleeping. Asymptomatic. EKG on admission reveals a left bundle branch block pattern which is chronic. Most recent stress test performed November 2018 revealed no evidence of stress-induced ischemia. Most recent echocardiogram obtained September 2018 reveals preserved LV systolic function with ejection fraction 55%. Most recent stress test performed May 2017 revealed a patent stent in the proximal and mid RCA with intermediate disease involving the mid to distal RCA that is unchanged from previous, pain stent in the distal left circumflex with intermediate disease in the proximal circumflex unchanged from prior, normal LAD, pain stent in the first diagonal branch of the LAD and normal LV systolic function. REVIEW OF SYSTEMS At the time of my exam: CONSTITUTIONAL: Denies fever or chills. CARDIOVASCULAR: Denies chest pain, shortness of breath, orthopnea, PND or palpitations. RESPIRATORY: Denies cough. GASTROINTESTINAL: Denies abdominal pain, diarrhea, constipation, nausea or vomiting. MUSCULOSKELETAL: Denies myalgias. NEUROLOGIC: Denies numbness, tingling or weakness. ENDOCRINE: Denies fatigue, weight change, polydipsia or polyurina. GENITOURINARY: Denies burning, hematuria or urgency with micturation. HEMATOLOGIC: Denies history of anemia or bleeding. PHYSICAL EXAMINATION Blood pressure 105/68 heart rate 63 afebrile and maintaining oxygen saturation on room air. CONSTITUTIONAL: No apparent distress. HEENT: Head is normocephalic. Pupils are equal, round. Sclerae anicteric. Mucous membranes of the mouth are moist. No JVD. No carotid bruit. CHEST EXAMINATION: Lungs are clear to auscultation. No chest wall tenderness is noted on palpation or with deep breathing. HEART EXAMINATION: Regular rate and rhythm. S1, S2 heard. No murmurs, gallops or rub. ABDOMEN: Soft, nontender. Positive bowel sounds. EXTREMITIES: 2+ peripheral pulses, no lower extremity edema and no calf tenderness. NEUROLOGIC EXAMINATION: Patient is awake, alert and oriented x3. ASSESSMENT Chest pain, atypical. An acute coronary event has been ruled out. Palpitations History of coronary artery disease status post PCI Hypertension Anxiety Former nicotine dependence PLAN An acute coronary event has been ruled out. We have requested an interrogation of her loop recorder which reveals no arrhythmia, tachycardia or bradycardia. Increase activity and ambulation in the zabala. Recent stress testing unremarkable. Stable for discharge from a cardiac perspective, follow-up with Dr. Granados in the office in 2 weeks. Thank you kindly for this consultation. Nurse Practitioner note has been reviewed, I agree with a documented findings and plan of care. Patient was seen and examined. Past Medical History Past Medical History: Coronary Artery Disease (CAD), Chest Pain / Angina, CVA/TIA, Hypertension, Myocardial Infarction ([place]), Osteoarthritis (OA), Syncope Additional Past Medical History / Comment(s): Degenerative disc disease, chronic back pain, CVA 07/2017- left with weakness on right on and off Last Myocardial Infarction Date:: 05/2017 History of Any Multi-Drug Resistant Organisms: None Reported Past Surgical History: Heart Catheterization With Stent, Joint Replacement Additional Past Surgical History / Comment(s): Ectopic , loop monitor, 3 stents, Total hip bilat Past Anesthesia/Blood Transfusion Reactions: No Reported Reaction Additional Past Anesthesia/Blood Transfusion Reaction / Comment(s): after hip replacement last time had very slow pulse Date of Last Stent Placement:: 05/2017 Past Psychological History: Anxiety Additional Psychological History / Comment(s): Pt resides alone. Pt normally is independent with her ADls. She drives a car. Smoking Status: Former smoker Past Alcohol Use History: None Reported Past Drug Use History: None Reported - Past Family History Mother Family Medical History: Cancer, Hypertension Additional Family Medical History / Comment(s): Bone,blood,pancreatic CA Father Family Medical History: Cancer, Hypertension, Thyroid Disorder Additional Family Medical History / Comment(s): Small Cell Carcoma CA Medications and Allergies Home Medications Medication Instructions Recorded Confirmed Type Clopidogrel [Plavix] 75 mg PO DAILY 07/28/17 06/13/19 History Aspirin 81 mg PO DAILY chew 08/22/17 06/13/19 Rx Baclofen 10 mg PO TID PRN 12/30/17 06/13/19 History Nitroglycerin Sl Tabs [Nitrostat] 0.4 mg SUBLINGUAL Q5M PRN #30 tab 10/16/18 06/13/19 Rx ALPRAZolam [Xanax] 0.5 mg PO BID PRN 06/13/19 06/13/19 History Lisinopril [Prinivil] 10 mg PO DAILY 06/13/19 06/13/19 History Allergies Allergy/AdvReac Type Severity Reaction Status Date / Time adhesive tape AdvReac SKIN TEAR Verified 06/13/19 08:02 Physical Exam Vitals: Vital Signs Temp Pulse Pulse Pulse Resp BP BP 06/13/19 08:00 97.6 F 63 18 105/68 06/13/19 04:12 56 L 17 122/81 06/13/19 03:00 98.6 F 79 19 122/81 06/13/19 01:56 58 L 06/13/19 01:49 98.6 F 57 L 19 127/88 06/13/19 01:40 63 19 127/88 Pulse Ox 06/13/19 08:00 98 06/13/19 04:12 94 L 06/13/19 03:00 99 06/13/19 01:56 06/13/19 01:49 95 06/13/19 01:40 98 Intake and Output 06/12/19 06/13/19 06/13/19 22:59 06:59 14:59 Other: Voiding Method Toilet # Voids 1 Weight 61.8 kg Results Cardiac Enzymes 06/13/19 Range/Units 03:10 Troponin I <0.012 (0.000-0.034) ng/mL Current Medications Generic Name Dose Route Start Last Admin Trade Name Freq PRN Reason Stop Dose Admin Aspirin 81 mg 06/13/19 09:00 Aspirin PO DAILY [facility] Clopidogrel Bisulfate 75 mg 06/13/19 09:00 Plavix PO DAILY [facility] Lisinopril 10 mg 06/13/19 09:00 Zestril PO DAILY [facility] Nitroglycerin 0.4 mg 06/13/19 02:09 Nitrostat SUBLINGUAL Q5M PRN Chest Pain Intake and Output 06/12/19 06/13/19 06/13/19 22:59 06:59 14:59 Other: Voiding Method Toilet # Voids 1 Weight 61.8 kg
[2019-06-13 11:30] LABS: Albumin 4.1 g/dL (3.5-5.0); Calcium 9.7 mg/dL (8.4-10.2); Total Bilirubin 0.5 mg/dL (0.2-1.3); Total Protein 6.8 g/dL (6.3-8.2)
[2019-06-13 11:32] LABS: Basophils # (A) 0.1 k/uL (0-0.2); Basophils % (A) 3 %; Eosinophils # (A) 0.2 k/uL (0-0.7); Eosinophils % (A) 4 %; HGB 12.8 gm/dL (11.4-16.0); Lymphocytes # (A) 1.2 k/uL (1.0-4.8); Lymphocytes % (A) 23 %; MCH 29.3 pg (25.0-35.0); MCV 91.5 fL (80.0-100.0); Mean Platelet Volume 7.9; Monocytes # (A) 0.3 k/uL (0-1.0); Monocytes % (A) 6 %; Neutrophils # (A) 3.3 k/uL (1.3-7.7); Neutrophils % (A) 62 %; Platelet Count 299 k/uL (150-450); RBC 4.37 m/uL (3.80-5.40); RDW 13.6 % (11.5-15.5); WBC 5.3 k/uL (3.8-10.6)
[2019-06-13 11:36] VITALS: BP 110/75; PULSE 61; TEMP 97.8
--- NOTE | 2019-06-14 00:17 | HP ---
HISTORY AND PHYSICAL HISTORY AND PHYSICAL AND DISCHARGE SUMMARY: CHIEF COMPLAINT: Palpitations. HISTORY OF PRESENT ILLNESS: This 63-year-old woman with a past medical history of multiple medical problems including CAD, stent history, hypertension, anxiety, being followed by Dr. Myles Lamar in the outpatient complaining of chest pain. The patient also had some palpitations for the last 2 weeks and the patient came to [facility] and was admitted for further evaluation and treatment. Chest pain was vague and felt in the anterior part of chest. The patient has seen Cardiology and recent stress test about 2 months ago was negative. There is no history of fever, rigors or chills. No history of headache, loss of consciousness or seizures at this time. Evaluation CBC, BMP, troponin within normal limits. PAST MEDICAL HISTORY: History of CAD stent, history of CVA, TIA, history of hypertension, myocardial infarction, DJD, history of recent stress test. MEDICATION: Home medications are: 1. Xanax 0.5 b.i.d. p.r.n. 2. Nitrostat p.r.n. 3. Prinivil 10 mg p.o. daily. 4. Plavix 75 mg. p.o. daily. 5. Baclofen 10 mg t.i.d. p.r.n. 6. Aspirin 81 mg daily. ALLERGIES: ADHESIVE TAPE. FAMILY HISTORY: History of cancer, hypertension, pancreatic cancer. SOCIAL HISTORY: Previous history of smoking. No history of current smoking or alcohol intake. REVIEW OF SYSTEMS: ENT: No diminished vision. No diminished hearing. CARDIOVASCULAR as mentioned earlier. RESPIRATORY: As mentioned earlier. GI no nausea or vomiting. no dysuria or hematuria. NERVOUS SYSTEM: No numbness or weakness. ALLERGY/IMMUNOLOGY: No asthma or hayfever. MUSCULOSKELETAL as mentioned earlier. HEMATOLOGY/ONCOLOGY: No history of anemia. ENDOCRINE: No history of diabetes or hypothyroidism. CONSTITUTIONAL: As mentioned earlier. Dermatology: Negative. Psychiatry as mentioned earlier. RHEUMATOLOGY: As mentioned earlier. PHYSICAL EXAMINATION: Alert and oriented times three. Pulse 61, blood pressure 110/75, respiration 18, temperature 97.8. Pulse ox 100 percent on room air. HEENT: Conjunctivae normal. NECK: No JVD. CARDIOVASCULAR: S1, S2 muffled. RESPIRATORY SYSTEM: Breath sounds diminished at the bases. No rhonchi. No crackles. ABDOMEN: Soft, nontender. No mass palpable. LEGS: No edema. No swelling. NERVOUS SYSTEM: Higher functions as mentioned earlier. Moves all four limbs. No focal motor or sensory deficits. Lymphatics: No lymph nodes palpable in the neck, axillae or groin. SKIN: No ulcer, rash or bleeding. JOINTS: No active deforming arthropathy. LABS: At this time shows CBC, BMP noted. Other labs noted. ASSESSMENT: 1. Chest pain possible musculoskeletal, recent negative stress test. 2. Palpitations, improved. 3. History of coronary artery disease/stent. 4. History of cerebrovascular accident, transient ischemic attack. 5. Hypertension. 6. Degenerative joint disease. 7. History of syncope. 9. History of anxiety. 10.Remote history of nicotine dependence. RECOMMENDATIONS AND DISCUSSION: In this 63-year-old woman who presented with multiple medical issues, we will monitor the patient closely, continue the current medications, management and symptomatic treatment. Cardiology cleared the patient for discharge. Patient improved significantly. Basic labs are negative. Patient recently had negative stress test. Recommend close followup in the outpatient setting. Follow closely with Pulmonary and primary and Cardiology also. DISCHARGE ADVICE AND MEDICATIONS: 1. Diet is cardiac diet. 2. Activity limited until followup. 3. Follow up with Dr. Lamar in 2-3 days. 4. Follow up with cardiology, Dr. Granados as recommended. DISCHARGE MEDICATIONS: Will be as follows: 1. Continue with baclofen 10 mg t.i.d. p.r.n. 2. Plavix 75 mg. 3. Prinivil 10 mg daily. 4. Xanax 0.5 b.i.d. p.r.n. 5. Aspirin 81 mg p.o. daily. 6. Nitrostat p.r.n. Once again the patient being discharged in stable condition with guarded prognosis. MMODL / IJN: [id number] / MTDD
[2019-06-14] MEDS ORDERED: ASPIRIN 325 MG TAB PO SCH (09:00)
== END 2019-06-13 13:47 | disposition home or self-care (01) ==
LOC: EC 01:16 → 1SOBS 03:49
PROVIDERS: ADMIT Hospitalist; ATTEND Hospitalist
DX: R00.2 Palpitations (principal); R07.9 Chest pain, unspecified; Z45.09 Encounter for adjustment and management of other cardiac device; I25.10 Atherosclerotic heart disease of native coronary artery without angina pectoris; Z95.5 Presence of coronary angioplasty implant and graft; I69.951 Hemiplegia and hemiparesis following unspecified cerebrovascular disease affecting right dominant side; I10 Essential (primary) hypertension; I25.2 Old myocardial infarction; M19.90 Unspecified osteoarthritis, unspecified site; G89.29 Other chronic pain; M54.9 Dorsalgia, unspecified; I44.7 Left bundle-branch block, unspecified; F41.9 Anxiety disorder, unspecified; Z87.891 Personal history of nicotine dependence; Z96.643 Presence of artificial hip joint, bilateral; Z82.49 Family history of ischemic heart disease and other diseases of the circulatory system; Z80.8 Family history of malignant neoplasm of other organs or systems; Z83.49 Family history of other endocrine, nutritional and metabolic diseases; Z79.82 Long term (current) use of aspirin; Z79.02 Long term (current) use of antithrombotics/antiplatelets; Z79.899 Other long term (current) drug therapy; Z91.048 Other nonmedicinal substance allergy status
CPT/HCPCS: 93005 ×2; 99285; 36415; 80053; 84484; 85025; G0378

== ENCOUNTER 2019-09-02 16:59 | Inpatient (IN) | payer MEDICARE ==
[2019-09-02 18:41] LABS: ALT 10 U/L (4-34); AST 20 U/L (14-36); African American GFR (CKD) >90 (>60 ml/min/1.73 sqM); Albumin 4.2 g/dL (3.5-5.0); Alkaline Phosphatase 68 U/L (38-126); Anion Gap 10 mmol/L; Blood Urea Nitrogen 11 mg/dL (7-17); Calcium 9.5 mg/dL (8.4-10.2); Carbon Dioxide 23 mmol/L (22-30); Chloride 103 mmol/L (98-107); Glucose 87 mg/dL (74-99); Magnesium 2.1 mg/dL (1.6-2.3); Non-African American GFR(CKD) 80 (>60 ml/min/1.73 sqM); Potassium 3.9 mmol/L (3.5-5.1); Sodium 136 mmol/L (137-145); Total Bilirubin 0.5 mg/dL (0.2-1.3)
--- NOTE | 2019-09-02 18:45 | XR ---
EXAMINATION TYPE: XR chest 2V DATE OF EXAM: 09/02/2019 COMPARISON: 02/13/2019 HISTORY: Shortness of breath TECHNIQUE: Frontal and lateral views of the chest are obtained. FINDINGS: Scattered senescent parenchymal changes noted. Hyperinflation compatible with COPD. No evidence for infiltrate. No evidence for atelectasis. Heart size is stable. Mediastinal structures are stable and grossly unremarkable. No evidence for hilar prominence. Degenerative changes dorsal spine. IMPRESSION: 1. No evidence for acute pulmonary disease.
[2019-09-02 18:57] LABS: Partial Thromboplastin Time 24.6 sec (22.0-30.0); Prothrombin Time 10.5 sec (9.0-12.0)
[2019-09-02 19:00] LABS: Basophils # (A) 0.1 k/uL (0-0.2); Basophils % (A) 1 %; Eosinophils # (A) 0.1 k/uL (0-0.7); Eosinophils % (A) 1 %; HCT 39.8 % (34.0-46.0); HGB 12.8 gm/dL (11.4-16.0); Lymphocytes # (A) 1.2 k/uL (1.0-4.8); Lymphocytes % (A) 22 %; MCH 29.5 pg (25.0-35.0); MCHC 32.2 g/dL (31.0-37.0); MCV 91.5 fL (80.0-100.0); Monocytes # (A) 0.3 k/uL (0-1.0); Monocytes % (A) 5 %; Neutrophils # (A) 3.7 k/uL (1.3-7.7); Neutrophils % (A) 69 %; Platelet Count 250 k/uL (150-450); RBC 4.34 m/uL (3.80-5.40); RDW 12.2 % (11.5-15.5); WBC 5.4 k/uL (3.8-10.6)
[2019-09-02] MEDS ORDERED: NALOXONE 0.4 MG/ML 1 ML VIAL IV PRN (20:14)
--- NOTE | 2019-09-02 20:14 | ED ---
Arrhythmia/Palpitations HPI - General Chief Complaint: Arrhythmia/Palpitations Stated Complaint: Chest Pain Time Seen by Provider: 09/02/19 17:06 Source: patient Mode of arrival: EMS Limitations: no limitations - History of Present Illness Initial Comments: The patient is a 63-year-old female past medical history of coronary artery disease, hypertension and tachybradycardia syndrome who presents to the emergency room also reported palpitations. The patient states that she's had intermittent palpitations which have been progressively getting worse since mid July. She does see Dr. Granados in office. She does have a root loop recorder in place since 2018. States that her episodes of bradycardia make it so that she has exertional shortness of breath. Today she began having chest pain with her episode of palpitations and therefore she called EMS. They provided her with 1 nitro. She denies any current chest pain. States that it rapidly occurs with her palpitations. She denies any fevers or chills. No cough or hemoptysis. There are no alleviating, precipitating or modifying factors - Related Data Home Medications Medication Instructions Recorded Confirmed Clopidogrel [Plavix] 75 mg PO DAILY 07/28/17 09/02/19 Baclofen 10 mg PO TID 12/30/17 09/02/19 Previous Rx's Medication Instructions Recorded Aspirin 81 mg PO DAILY chew 08/22/17 Nitroglycerin Sl Tabs [Nitrostat] 0.4 mg SUBLINGUAL Q5M PRN #30 tab 10/16/18 Allergies Allergy/AdvReac Type Severity Reaction Status Date / Time adhesive tape AdvReac SKIN TEAR Verified 09/02/19 20:23 Review of Systems ROS Statement: Those systems with pertinent positive or pertinent negative responses have been documented in the HPI. ROS Other: All systems not noted in ROS Statement are negative. Past Medical History Past Medical History: Coronary Artery Disease (CAD), Chest Pain / Angina, CVA/TIA, Hypertension, Myocardial Infarction ([place]), Osteoarthritis (OA), Syncope Additional Past Medical History / Comment(s): Degenerative disc disease, chronic back pain, CVA 07/2017- left with weakness on right on and off Last Myocardial Infarction Date:: 05/2017 History of Any Multi-Drug Resistant Organisms: None Reported Past Surgical History: Heart Catheterization With Stent, Joint Replacement Additional Past Surgical History / Comment(s): Ectopic , loop monitor, 3 stents, Total hip bilat Past Anesthesia/Blood Transfusion Reactions: No Reported Reaction Additional Past Anesthesia/Blood Transfusion Reaction / Comment(s): after hip replacement last time had very slow pulse Date of Last Stent Placement:: 05/2017 Past Psychological History: Anxiety Smoking Status: Former smoker Past Alcohol Use History: None Reported Past Drug Use History: None Reported - Past Family History Mother Family Medical History: Cancer, Hypertension Additional Family Medical History / Comment(s): Bone,blood,pancreatic CA Father Family Medical History: Cancer, Hypertension, Thyroid Disorder Additional Family Medical History / Comment(s): Small Cell Carcoma CA General Exam Limitations: no limitations General appearance: alert, in no apparent distress Head exam: Present: atraumatic, normocephalic, normal inspection Eye exam: Present: normal appearance, PERRL, EOMI. Absent: scleral icterus, conjunctival injection, periorbital swelling ENT exam: Present: normal exam, mucous membranes moist Neck exam: Present: normal inspection. Absent: tenderness, meningismus, lymphadenopathy Respiratory exam: Present: normal lung sounds bilaterally. Absent: respiratory distress, wheezes, rales, rhonchi, stridor Cardiovascular Exam: Present: regular rate, normal rhythm, normal heart sounds. Absent: systolic murmur, diastolic murmur, rubs, gallop, clicks GI/Abdominal exam: Present: soft, normal bowel sounds. Absent: distended, tenderness, guarding, rebound, rigid Extremities exam: Present: normal inspection, full ROM, normal capillary refill. Absent: tenderness, pedal edema, joint swelling, calf tenderness Back exam: Present: normal inspection Neurological exam: Present: alert, oriented X3, CN II-XII intact Psychiatric exam: Present: normal affect, normal mood Skin exam: Present: warm, dry, intact, normal color. Absent: rash Course Vital Signs 09/02/19 09/02/19 09/02/19 17:04 17:10 17:30 Temperature 98.4 F Pulse Rate 74 70 Respiratory 18 18 Rate Blood Pressure 152/84 152/84 152/84 O2 Sat by Pulse 100 100 100 Oximetry 09/02/19 09/02/19 09/02/19 18:00 18:30 20:00 Temperature Pulse Rate 77 73 62 Respiratory 16 17 18 Rate Blood Pressure 125/82 134/75 129/85 O2 Sat by Pulse 100 94 L 98 Oximetry 09/02/19 09/02/19 09/02/19 20:30 21:00 21:30 Temperature Pulse Rate 64 70 66 Respiratory 16 16 14 Rate Blood Pressure 118/72 111/75 127/79 O2 Sat by Pulse 97 100 100 Oximetry EKG Findings - EKG Comments: EKG Findings:: EKG demonstrates normal sinus rhythm with a ventricular rate of 75. IA Interval is 174. QRS 138. QTC of 42. There is a left bundle branch block. Negative for Sgarbossa criteria. Left bundle branch block is old compared to previous EKG Medical Decision Making - Medical Decision Making Upon arrival the patient is placed into room 1. A thorough history and physical exam was performed. The patient is placed on continuous pulse ox and cardiac monitoring. Peripheral IV had been established by EMS. Laboratory studies were conducted. CBC, CMP and coagulation studies are unremarkable. First troponin is negative. Coronavirus is not detected. Chest x-ray is performed which demonstrates no evidence of acute cardiopulmonary disease. The patient has a 12-lead EKG which demonstrates a left bundle branch block. We did interrogate the patient's loop device which does not detect any episodes of bradycardia or tachycardia. I did discuss results with the patient. The patient was offered inpatient admission with cardiology consultation. She did agree to this. Discussed case with Dr. Felder who accepted admission for the patient. Loop recorder interrogation is obtained on the patient which demonstrates one event of tachycardia on July 11 which lasted for 28 seconds and had a rate of 158. - Lab Data Result diagrams: 09/03/19 05:16 09/03/19 05:16 Lab Results 09/02/19 09/02/19 09/02/19 Range/Units 18:12 18:12 18:12 WBC 5.4 (3.8-10.6) k/uL RBC 4.34 (3.80-5.40) m/uL Hgb 12.8 (11.4-16.0) gm/dL Hct 39.8 (34.0-46.0) % MCV 91.5 (80.0-100.0) fL MCH 29.5 (25.0-35.0) pg MCHC 32.2 (31.0-37.0) g/dL RDW 12.2 (11.5-15.5) % Plt Count 250 (150-450) k/uL Neutrophils % 69 % Lymphocytes % 22 % Monocytes % 5 % Eosinophils % 1 % Basophils % 1 % Neutrophils # 3.7 (1.3-7.7) k/uL Lymphocytes # 1.2 (1.0-4.8) k/uL Monocytes # 0.3 (0-1.0) k/uL Eosinophils # 0.1 (0-0.7) k/uL Basophils # 0.1 (0-0.2) k/uL PT 10.5 (9.0-12.0) sec INR 1.0 (<1.2) APTT 24.6 (22.0-30.0) sec Sodium 136 L (137-145) mmol/L Potassium 3.9 (3.5-5.1) mmol/L Chloride 103 (98-107) mmol/L Carbon Dioxide 23 (22-30) mmol/L Anion Gap 10 mmol/L BUN 11 (7-17) mg/dL Creatinine 0.80 (0.52-1.04) mg/dL Est GFR (CKD-EPI)AfAm >90 (>60 ml/min/1.73 sqM) Est GFR (CKD-EPI)NonAf 80 (>60 ml/min/1.73 sqM) Glucose 87 (74-99) mg/dL Calcium 9.5 (8.4-10.2) mg/dL Magnesium 2.1 (1.6-2.3) mg/dL Total Bilirubin 0.5 (0.2-1.3) mg/dL AST 20 (14-36) U/L ALT 10 (4-34) U/L Alkaline Phosphatase 68 (38-126) U/L Troponin I (0.000-0.034) ng/mL Total Protein 7.0 (6.3-8.2) g/dL Albumin 4.2 (3.5-5.0) g/dL TSH 1.060 (0.465-4.680) mIU/L Urine Color Urine Appearance (Clear) Urine pH (5.0-8.0) Ur Specific Arnold (1.001-1.035) Urine Protein (Negative) Urine Glucose (UA) (Negative) Urine Ketones (Negative) Urine Blood (Negative) Urine Nitrite (Negative) Urine Bilirubin (Negative) Urine Urobilinogen (<2.0) mg/dL Ur Leukocyte Esterase (Negative) Urine RBC (0-5) /hpf Urine WBC (0-5) /hpf Ur Squamous Epith Cells (0-4) /hpf Urine Mucus (None) /hpf Coronavirus (PCR) (Not Detectd) 09/02/19 09/02/19 09/02/19 Range/Units 18:12 20:26 22:28 WBC (3.8-10.6) k/uL RBC (3.80-5.40) m/uL Hgb (11.4-16.0) gm/dL Hct (34.0-46.0) % MCV (80.0-100.0) fL MCH (25.0-35.0) pg MCHC (31.0-37.0) g/dL RDW (11.5-15.5) % Plt Count (150-450) k/uL Neutrophils % % Lymphocytes % % Monocytes % % Eosinophils % % Basophils % % Neutrophils # (1.3-7.7) k/uL Lymphocytes # (1.0-4.8) k/uL Monocytes # (0-1.0) k/uL Eosinophils # (0-0.7) k/uL Basophils # (0-0.2) k/uL PT (9.0-12.0) sec INR (<1.2) APTT (22.0-30.0) sec Sodium (137-145) mmol/L Potassium (3.5-5.1) mmol/L Chloride (98-107) mmol/L Carbon Dioxide (22-30) mmol/L Anion Gap mmol/L BUN (7-17) mg/dL Creatinine (0.52-1.04) mg/dL Est GFR (CKD-EPI)AfAm (>60 ml/min/1.73 sqM) Est GFR (CKD-EPI)NonAf (>60 ml/min/1.73 sqM) Glucose (74-99) mg/dL Calcium (8.4-10.2) mg/dL Magnesium (1.6-2.3) mg/dL Total Bilirubin (0.2-1.3) mg/dL AST (14-36) U/L ALT (4-34) U/L Alkaline Phosphatase (38-126) U/L Troponin I <0.012 (0.000-0.034) ng/mL Total Protein (6.3-8.2) g/dL Albumin (3.5-5.0) g/dL TSH (0.465-4.680) mIU/L Urine Color Light Yellow Urine Appearance Clear (Clear) Urine pH 6.5 (5.0-8.0) Ur Specific Arnold 1.007 (1.001-1.035) Urine Protein Negative (Negative) Urine Glucose (UA) Negative (Negative) Urine Ketones 1+ H (Negative) Urine Blood Negative (Negative) Urine Nitrite Negative (Negative) Urine Bilirubin Negative (Negative) Urine Urobilinogen <2.0 (<2.0) mg/dL Ur Leukocyte Esterase Moderate H (Negative) Urine RBC 1 (0-5) /hpf Urine WBC 10 H (0-5) /hpf Ur Squamous Epith Cells 1 (0-4) /hpf Urine Mucus Rare H (None) /hpf Coronavirus (PCR) Not Detected (Not Detectd) 09/03/19 09/03/19 09/03/19 Range/Units 00:28 05:16 05:16 WBC 4.9 (3.8-10.6) k/uL RBC 4.13 (3.80-5.40) m/uL Hgb 12.5 (11.4-16.0) gm/dL Hct 38.3 (34.0-46.0) % MCV 92.7 (80.0-100.0) fL MCH 30.2 (25.0-35.0) pg MCHC 32.6 (31.0-37.0) g/dL RDW 12.3 (11.5-15.5) % Plt Count 267 (150-450) k/uL Neutrophils % 39 % Lymphocytes % 46 % Monocytes % 8 % Eosinophils % 4 % Basophils % 1 % Neutrophils # 1.9 (1.3-7.7) k/uL Lymphocytes # 2.3 (1.0-4.8) k/uL Monocytes # 0.4 (0-1.0) k/uL Eosinophils # 0.2 (0-0.7) k/uL Basophils # 0.0 (0-0.2) k/uL PT (9.0-12.0) sec INR (<1.2) APTT (22.0-30.0) sec Sodium 136 L (137-145) mmol/L Potassium 4.4 (3.5-5.1) mmol/L Chloride 104 (98-107) mmol/L Carbon Dioxide 27 (22-30) mmol/L Anion Gap 5 mmol/L BUN 12 (7-17) mg/dL Creatinine 0.88 (0.52-1.04) mg/dL Est GFR (CKD-EPI)AfAm 83 (>60 ml/min/1.73 sqM) Est GFR (CKD-EPI)NonAf 72 (>60 ml/min/1.73 sqM) Glucose 85 (74-99) mg/dL Calcium 9.2 (8.4-10.2) mg/dL Magnesium (1.6-2.3) mg/dL Total Bilirubin (0.2-1.3) mg/dL AST (14-36) U/L ALT (4-34) U/L Alkaline Phosphatase (38-126) U/L Troponin I <0.012 (0.000-0.034) ng/mL Total Protein (6.3-8.2) g/dL Albumin (3.5-5.0) g/dL TSH (0.465-4.680) mIU/L Urine Color Urine Appearance (Clear) Urine pH (5.0-8.0) Ur Specific Arnold (1.001-1.035) Urine Protein (Negative) Urine Glucose (UA) (Negative) Urine Ketones (Negative) Urine Blood (Negative) Urine Nitrite (Negative) Urine Bilirubin (Negative) Urine Urobilinogen (<2.0) mg/dL Ur Leukocyte Esterase (Negative) Urine RBC (0-5) /hpf Urine WBC (0-5) /hpf Ur Squamous Epith Cells (0-4) /hpf Urine Mucus (None) /hpf Coronavirus (PCR) (Not Detectd) 09/03/19 Range/Units 05:16 WBC (3.8-10.6) k/uL RBC (3.80-5.40) m/uL Hgb (11.4-16.0) gm/dL Hct (34.0-46.0) % MCV (80.0-100.0) fL MCH (25.0-35.0) pg MCHC (31.0-37.0) g/dL RDW (11.5-15.5) % Plt Count (150-450) k/uL Neutrophils % % Lymphocytes % % Monocytes % % Eosinophils % % Basophils % % Neutrophils # (1.3-7.7) k/uL Lymphocytes # (1.0-4.8) k/uL Monocytes # (0-1.0) k/uL Eosinophils # (0-0.7) k/uL Basophils # (0-0.2) k/uL PT (9.0-12.0) sec INR (<1.2) APTT (22.0-30.0) sec Sodium (137-145) mmol/L Potassium (3.5-5.1) mmol/L Chloride (98-107) mmol/L Carbon Dioxide (22-30) mmol/L Anion Gap mmol/L BUN (7-17) mg/dL Creatinine (0.52-1.04) mg/dL Est GFR (CKD-EPI)AfAm (>60 ml/min/1.73 sqM) Est GFR (CKD-EPI)NonAf (>60 ml/min/1.73 sqM) Glucose (74-99) mg/dL Calcium (8.4-10.2) mg/dL Magnesium (1.6-2.3) mg/dL Total Bilirubin (0.2-1.3) mg/dL AST (14-36) U/L ALT (4-34) U/L Alkaline Phosphatase (38-126) U/L Troponin I <0.012 (0.000-0.034) ng/mL Total Protein (6.3-8.2) g/dL Albumin (3.5-5.0) g/dL TSH (0.465-4.680) mIU/L Urine Color Urine Appearance (Clear) Urine pH (5.0-8.0) Ur Specific Arnold (1.001-1.035) Urine Protein (Negative) Urine Glucose (UA) (Negative) Urine Ketones (Negative) Urine Blood (Negative) Urine Nitrite (Negative) Urine Bilirubin (Negative) Urine Urobilinogen (<2.0) mg/dL Ur Leukocyte Esterase (Negative) Urine RBC (0-5) /hpf Urine WBC (0-5) /hpf Ur Squamous Epith Cells (0-4) /hpf Urine Mucus (None) /hpf Coronavirus (PCR) (Not Detectd) Disposition Clinical Impression: LBBB (left bundle branch block), Palpitations, Tachy-kevin syndrome Disposition: ADMITTED IP TO THIS [facility] Condition: Stable Is patient prescribed a controlled substance at d/c from ED?: No Decision to Admit Reason: Admit from EC Decision Date: 09/02/19 Decision Time: 20:14
[2019-09-02 22:46] LABS: Appearance,Urine Clear (Clear); Bilirubin,Urine Negative (Negative); Blood,Urine Negative (Negative); Color,Urine Light Yellow; Glucose,Urine (UA) Negative (Negative); Ketones,Urine 1+ (Negative); Leukocyte Esterase,Urine Moderate (Negative); Mucus,Urine Rare /hpf; Nitrite,Urine Negative (Negative); PH, Urine 6.5 (5.0-8.0); Protein,Urine Negative (Negative); RBC,Urine 1 /hpf (0-5); Specific Gravity,Urine 1.007 (1.001-1.035); Squamous Epithelial Cell,Urine 1 /hpf (0-4); Urobilinogen,Urine <2.0 mg/dL (<2.0); WBC,Urine 10 /hpf (0-5)
[2019-09-03 06:00] LABS: Basophils % (A) 1 %; Eosinophils # (A) 0.2 k/uL (0-0.7); Eosinophils % (A) 4 %; HCT 38.3 % (34.0-46.0); HGB 12.5 gm/dL (11.4-16.0); Lymphocytes # (A) 2.3 k/uL (1.0-4.8); Lymphocytes % (A) 46 %; MCH 30.2 pg (25.0-35.0); MCHC 32.6 g/dL (31.0-37.0); MCV 92.7 fL (80.0-100.0); Mean Platelet Volume 8.3; Monocytes # (A) 0.4 k/uL (0-1.0); Monocytes % (A) 8 %; Neutrophils # (A) 1.9 k/uL (1.3-7.7); Neutrophils % (A) 39 %; Platelet Count 267 k/uL (150-450); RBC 4.13 m/uL (3.80-5.40); RDW 12.3 % (11.5-15.5); WBC 4.9 k/uL (3.8-10.6)
[2019-09-03 06:18] LABS: Calcium 9.2 mg/dL (8.4-10.2); Potassium 4.4 mmol/L (3.5-5.1)
--- NOTE | 2019-09-03 10:22 | P.CRDCN ---
History of Present Illness Consult date: 09/03/19 Requesting physician: Emily Correa Reason for Consult (text): Palpitation Chief complaint: Palpitation History of present illness: This is a 63-year-old female patient who follows with Dr. Null in the office. She has a known history of coronary artery disease with prior PCI, hypertension, persistent palpitations for which she currently has a loop recorder in place, history of nicotine dependence, anxiety, hyperlipidemia. She underwent a dobutamine echocardiographic study in November of last year which was negative for any reversible ischemia. An echo was performed also at that time which revealed an ejection fraction of greater than 50%. She presented to the hospital on this occasion with feeling like her heart was skipping a beat, she also states that she felt as though she may pass out, but she did not pass out. According to the patient, her loop recorder was interrogated in the emergency room, we cannot find a copy of that so we will interrogate again. Chest x-ray on presentation here did not reveal any evidence of cardiopulmonary disease. EKG shows a normal sinus rhythm with a left bundle-branch block pattern. Blood pressure on arrival here 84/50 with a heart rate of 40-60, 98% on room air. White blood cell count 4.9, hemoglobin 12.5, hematocrit 38.3, platelet count 267. Sodium 136, potassium 4.4, BUN 104, creatinine 27 BUN 12 and creatinine 0.8. Troponins ne gative 3, TSH 1.06. Past Medical History Past Medical History: Coronary Artery Disease (CAD), Chest Pain / Angina, CVA/TIA, Hypertension, Myocardial Infarction ([place]), Osteoarthritis (OA), Syncope Additional Past Medical History / Comment(s): Degenerative disc disease, chronic back pain, CVA 07/2017- left with weakness on right on and off Last Myocardial Infarction Date:: 05/2017 History of Any Multi-Drug Resistant Organisms: None Reported Past Surgical History: Heart Catheterization With Stent, Joint Replacement Additional Past Surgical History / Comment(s): Ectopic , loop monitor, 3 stents, Total hip bilat Past Anesthesia/Blood Transfusion Reactions: No Reported Reaction Additional Past Anesthesia/Blood Transfusion Reaction / Comment(s): after hip replacement last time had very slow pulse Date of Last Stent Placement:: 05/2017 Past Psychological History: Anxiety Smoking Status: Former smoker Past Alcohol Use History: None Reported Past Drug Use History: None Reported - Past Family History Mother Family Medical History: Cancer, Hypertension Additional Family Medical History / Comment(s): Bone,blood,pancreatic CA Father Family Medical History: Cancer, Hypertension, Thyroid Disorder Additional Family Medical History / Comment(s): Small Cell Carcoma CA Medications and Allergies Home Medications Medication Instructions Recorded Confirmed Type Clopidogrel [Plavix] 75 mg PO DAILY 07/28/17 09/02/19 History Aspirin 81 mg PO DAILY chew 08/22/17 09/02/19 Rx Baclofen 10 mg PO TID 12/30/17 09/02/19 History Nitroglycerin Sl Tabs [Nitrostat] 0.4 mg SUBLINGUAL Q5M PRN #30 tab 10/16/18 09/02/19 Rx Lisinopril [Prinivil] 10 mg PO DAILY@1230 06/13/19 09/02/19 History Allergies Allergy/AdvReac Type Severity Reaction Status Date / Time adhesive tape AdvReac SKIN TEAR Verified 09/02/19 20:23 Physical Exam Vitals: Vital Signs Temp Pulse Pulse Resp BP BP Pulse Ox 09/03/19 08:00 97.6 F 65 18 100/62 98 09/03/19 03:34 48 L 16 09/03/19 03:18 98.0 F 48 L 16 84/52 98 09/03/19 00:00 97.7 F 64 18 91/52 98 09/02/19 21:58 97.7 F 82 18 119/64 99 09/02/19 21:30 66 14 127/79 100 09/02/19 21:00 70 16 111/75 100 09/02/19 20:30 64 16 118/72 97 09/02/19 20:00 62 18 129/85 98 09/02/19 18:30 73 17 134/75 94 L 09/02/19 18:00 77 16 125/82 100 09/02/19 17:30 70 18 152/84 100 09/02/19 17:10 152/84 100 09/02/19 17:04 98.4 F 74 18 152/84 100 Intake and Output 09/02/19 09/03/19 09/03/19 22:59 06:59 14:59 Intake Total 150 Balance 150 Intake: Oral 150 Other: Voiding Method Toilet Toilet # Voids 1 Weight 59.6 kg 59.6 kg PHYSICAL EXAMINATION: GENERAL: 63-year-old female in no acute distress at the time of examination HEENT: Head is atraumatic, normocephalic. Pupils equal, round. Sclera anicteric. Conjunctiva are clear. Mucous membranes of the mouth are moist. Neck is supple. There is no elevated jugular venous pressure. No carotid bruit is heard. HEART EXAMINATION: Heart S1, S2 normal. No murmur or gallop heard. CHEST EXAMINATION: Lungs are clear to auscultation and precussion. No chest wall tenderness is noted on palpation or with deep breathing. ABDOMEN: Soft, nontender. Bowel sounds are heard. No organomegaly noted. EXTREMITIES: 2+ peripheral pulses with no evidence of peripheral edema and no calf tenderness noted. NEUROLOGIC patient is awake, alert and oriented 3 . . Results 09/03/19 05:16 09/03/19 05:16 Cardiac Enzymes 09/02/19 09/02/19 09/03/19 Range/Units 18:12 18:12 00:28 AST 20 (14-36) U/L Troponin I <0.012 <0.012 (0.000-0.034) ng/mL 09/03/19 Range/Units 05:16 AST (14-36) U/L Troponin I <0.012 (0.000-0.034) ng/mL Coagulation 09/02/19 Range/Units 18:12 PT 10.5 (9.0-12.0) sec APTT 24.6 (22.0-30.0) sec CBC 09/02/19 09/03/19 Range/Units 18:12 05:16 WBC 5.4 4.9 (3.8-10.6) k/uL RBC 4.34 4.13 (3.80-5.40) m/uL Hgb 12.8 12.5 (11.4-16.0) gm/dL Hct 39.8 38.3 (34.0-46.0) % Plt Count 250 267 (150-450) k/uL Comprehensive Metabolic Panel 09/02/19 09/03/19 Range/Units 18:12 05:16 Sodium 136 L 136 L (137-145) mmol/L Potassium 3.9 4.4 (3.5-5.1) mmol/L Chloride 103 104 (98-107) mmol/L Carbon Dioxide 23 27 (22-30) mmol/L BUN 11 12 (7-17) mg/dL Creatinine 0.80 0.88 (0.52-1.04) mg/dL Glucose 87 85 (74-99) mg/dL Calcium 9.5 9.2 (8.4-10.2) mg/dL AST 20 (14-36) U/L ALT 10 (4-34) U/L Alkaline Phosphatase 68 (38-126) U/L Total Protein 7.0 (6.3-8.2) g/dL Albumin 4.2 (3.5-5.0) g/dL Current Medications Generic Name Dose Route Start Last Admin Trade Name Freq PRN Reason Stop Dose Admin Naloxone HCl 0.2 mg 09/02/19 20:14 Narcan IV Q2M PRN Opioid Reversal Intake and Output 09/02/19 09/03/19 09/03/19 22:59 06:59 14:59 Intake Total 150 Balance 150 Intake: Oral 150 Other: Voiding Method Toilet Toilet # Voids 1 Weight 59.6 kg 59.6 kg 09/03/19 05:16 09/03/19 05:16 EKG Interpretations (text) EKG shows a normal sinus rhythm with a left bundle-branch block pattern Assessment and Plan Plan: Assessment and plan #1 symptoms of palpitations and heart skipping with associated feeling of near syncope #2 coronary artery disease with prior PCI #3 hypertension #4 nicotine dependence #5 anxiety #6 hyperlipidemia Plan We will interrogate the patient's a loop recorder to assess for any significant bradycardia. We will also repeat an echocardiogram with Doppler study. If there is no active evidence of significant tachycardia or bradycardia arrhythmias, patient may need to undergo tilt table testing. We will check orthostatic heart rate and blood pressure every shift. DNP note has been reviewed, I agree with a documented findings and plan of care. Patient was seen and examined.
[2019-09-03] MEDS ORDERED: NITROGLYCERIN SL TABS 0.4 MG TAB SUBLINGUAL PRN (10:24)
[2019-09-03] MEDS: CLOPIDOGREL 75 MG TAB PO SCH (11:14)
[2019-09-03] MEDS: ASPIRIN 81 MG PO SCH (11:14)
[2019-09-03] MEDS: BACLOFEN 10 MG TAB PO PRN ×2 (11:14→17:53)
--- NOTE | 2019-09-03 12:28 | P.HPIM ---
History of Present Illness 63-year-old female came in with complains of palpitations and felt like her heart is missing beats. Patient has a loop recorder for 3 years which is being evaluated at this timethe patient has multiple hospital physicians in the past for chest pain patient is a day and complaining of chest pain on and off pressure-like sensation retrosternal 80 and not associated with the nausea vomiting lightheadedness or shortness of breath. Patient occasionally has lightheadedness because of the low blood pressure whenever she takes lisinopril patient blood pressure is in 80s 90s systolic patient had a normal ejection fraction not a diabetic will not require lisinopril patient was asked to check the blood pressures at home. EKG showed a left bundle branch block., as per the ER physician patient had episodes of bradycardia on the loop recorder review although these results are not found because of which there and her interrogatin g loop recorder again. any fever chills cough.documented lowest heart rate here in the hospital is around 48 Review of Systems REVIEW OF SYSTEMS: CONSTITUTIONAL: No fever, no malaise, no fatigue. HEENT: No recent visual problems or hearing problems. Denied any sore throat. CARDIOVASCULAR: as mentioned in HPI PULMONARY: No shortness of breath, no cough, no hemoptysis. GASTROINTESTINAL: No diarrhea, no nausea, no vomiting, no abdominal pain. NEUROLOGICAL: No headaches, no weakness, no numbness. HEMATOLOGICAL: Denies any bleeding or petechiae. GENITOURINARY: Denies any burning micturition, frequency, or urgency. MUSCULOSKELETAL/RHEUMATOLOGICAL: Denies any joint pain, swelling, or any muscle pain. ENDOCRINE: Denies any polyuria or polydipsia. The rest of the 14-point review of systems is negative. Past Medical History Past Medical History: Coronary Artery Disease (CAD), Chest Pain / Angina, CVA/TIA, Hypertension, Myocardial Infarction (NV), Osteoarthritis (OA), Syncope Additional Past Medical History / Comment(s): Degenerative disc disease, chronic back pain, CVA 07/2017- left with weakness on right on and off Last Myocardial Infarction Date:: 05/2017 History of Any Multi-Drug Resistant Organisms: None Reported Past Surgical History: Heart Catheterization With Stent, Joint Replacement Additional Past Surgical History / Comment(s): Ectopic , loop monitor, 3 stents, Total hip bilat Past Anesthesia/Blood Transfusion Reactions: No Reported Reaction Additional Past Anesthesia/Blood Transfusion Reaction / Comment(s): after hip replacement last time had very slow pulse Date of Last Stent Placement:: 05/2017 Past Psychological History: Anxiety Smoking Status: Former smoker Past Alcohol Use History: None Reported Past Drug Use History: None Reported - Past Family History Mother Family Medical History: Cancer, Hypertension Additional Family Medical History / Comment(s): Bone,blood,pancreatic CA Father Family Medical History: Cancer, Hypertension, Thyroid Disorder Additional Family Medical History / Comment(s): Small Cell Carcoma CA Medications and Allergies Home Medications Medication Instructions Recorded Confirmed Type Clopidogrel [Plavix] 75 mg PO DAILY 07/28/17 09/02/19 History Aspirin 81 mg PO DAILY chew 08/22/17 09/02/19 Rx Baclofen 10 mg PO TID 12/30/17 09/02/19 History Nitroglycerin Sl Tabs [Nitrostat] 0.4 mg SUBLINGUAL Q5M PRN #30 tab 10/16/18 09/02/19 Rx Lisinopril [Prinivil] 10 mg PO DAILY@1230 06/13/19 09/02/19 History Allergies Allergy/AdvReac Type Severity Reaction Status Date / Time adhesive tape AdvReac SKIN TEAR Verified 09/02/19 20:23 Physical Exam Vitals: Vital Signs Temp Pulse Pulse Resp BP BP Pulse Ox 09/03/19 11:18 97.8 F 65 17 105/59 98 09/03/19 08:00 97.6 F 65 18 100/62 98 09/03/19 03:34 48 L 16 09/03/19 03:18 98.0 F 48 L 16 84/52 98 09/03/19 00:00 97.7 F 64 18 91/52 98 09/02/19 21:58 97.7 F 82 18 119/64 99 09/02/19 21:30 66 14 127/79 100 09/02/19 21:00 70 16 111/75 100 09/02/19 20:30 64 16 118/72 97 09/02/19 20:00 62 18 129/85 98 09/02/19 18:30 73 17 134/75 94 L 09/02/19 18:00 77 16 125/82 100 09/02/19 17:30 70 18 152/84 100 09/02/19 17:10 152/84 100 05/04/20 17:04 98.4 F 74 18 152/84 100 Intake and Output 09/02/19 09/03/19 09/03/19 22:59 06:59 14:59 Intake Total 150 Balance 150 Intake: Oral 150 Other: Voiding Method Toilet Toilet # Voids 1 Weight 59.6 kg 59.6 kg PHYSICAL EXAMINATION: GENERAL: The patient is alert and oriented x3, not in any acute distress. Well developed, well nourished. HEENT: Pupils are round and equally reacting to light. EOMI. No scleral icterus. No conjunctival pallor. Normocephalic, atraumatic. No pharyngeal erythema. No thyromegaly. CARDIOVASCULAR: S1 and S2 present. No murmurs, rubs, or gallops. PULMONARY: Chest is clear to auscultation, no wheezing or crackles. ABDOMEN: Soft, nontender, nondistended, normoactive bowel sounds. No palpable organomegaly. MUSCULOSKELETAL: No joint swelling or deformity. EXTREMITIES: No cyanosis, clubbing, or pedal edema. NEUROLOGICAL: Gross neurological examination did not reveal any focal deficits. SKIN: No rashes. Results CBC & Chem 7: 09/03/19 05:16 09/03/19 05:16 Labs: Abnormal Lab Results - Last 24 Hours (Table) 09/02/19 09/02/19 09/03/19 Range/Units 18:12 22:28 05:16 Sodium 136 L 136 L (137-145) mmol/L Urine Ketones 1+ H (Negative) Ur Leukocyte Esterase Moderate H (Negative) Urine WBC 10 H (0-5) /hpf Urine Mucus Rare H (None) /hpf Thrombosis Risk Factor Assmnt - Choose All That Apply Any of the Below Risk Factors Present?: Yes Other Risk Factors: Yes Each Risk Factor Represents 2 Points: Age 61-74 years Other congenital or acquired thrombophilia - If yes, enter type in comment: No Thrombosis Risk Factor Assessment Total Risk Factor Score: 2 Thrombosis Risk Factor Assessment Level: Low Risk Assessment and Plan Plan: -symptoms of palpitations and skipping beats: Her loop recorder will be interrogated again today further and as per cardiology the recommending tilt table testing. Next Symptoms of lightheadedness: Probably secondary to low blood pressure patient will not treat need lisinopril this will be discontinued patient was asked to check the blood pressure 3 times a day at home and document those readings. -Hypertension patient is actually hypotensive management as mentioned above -Coronary artery disease with previous PCI's patient is complaining of some nonspecific chest pain cardiology evaluated the patient further management as per them -Nicotine dependence -Anxiety disorder -Hyperlipidemia
[2019-09-03] MEDS ORDERED: SODIUM CHLORIDE 0.9% 1,000 ML IV SCH (13:15)
[2019-09-03] MEDS ORDERED: SODIUM CHLORIDE 0.9% 500 ML 500 ML IV ONE (13:25)
[2019-09-04] MEDS: BACLOFEN 10 MG TAB PO PRN (05:27)
--- NOTE | 2019-09-04 08:07 | P.PCN ---
Preoperative Diagnosis: Tilt table test Recurrent dizzy spells and near syncope palpitations No arrhythmias on loop monitor Twelve-lead ECG shows sinus rhythm normal PA (1 block morphology QRS width of [address]-T abnormalities Tilt table test per protocol Baseline blood pressure 116/67 mmHg. Baseline heart rate 77 beats a minute Visit drop in her blood pressure 98/58 mmHg without any changes in heart rate [facility]. She was asymptomatic However this normalized within 2-4 minutes and thereafter her blood pressure remained stable and her heart rate remained stable No arrhythmias are noted Initially her QRS is narrow with a heart rate of 77 beats a minute but once a heart rate increased into the 90s, a left bundle branch block morphology of the QRS was noted, rate related aberrancy At that time she complained of numbness on the left side of the jaw and felt pounding in the chest No evidence for neurocardiogenic syncope Impression Rate related left bundle branch block aberrancy No evidence for neurocardiogenic syncope Mild drop in blood pressure upon assuming upright position, mild asymptomatic orthostatic hypotension with associated with a mild increase in heart rate and change the QRS morphology with a left bundle branch block morphology on account of a mild increase in heart rate
[2019-09-04] MEDS: ASPIRIN 81 MG PO SCH (08:51)
[2019-09-04] MEDS: CLOPIDOGREL 75 MG TAB PO SCH (08:51)
[2019-09-04 08:56] VITALS: BP 104/63; PULSE 75; RESP 20; TEMP 97.9
[2019-09-04] MEDS ORDERED: ASPIRIN 81 MG PO SCH (09:00)
[2019-09-04] MEDS ORDERED: CLOPIDOGREL 75 MG TAB PO SCH (09:00)
--- NOTE | 2019-09-04 10:03 | ECHOF ---
Referral Reason:palpitations MEASUREMENTS -------- HEIGHT: 162.6 cm WEIGHT: 59.4 kg BP: 98/61 RVIDd: 2.9 cm (< 3.3) IVSd: 1.0 cm (0.6 - 1.1) LVIDd: 4.0 cm (3.9 - 5.3) LVPWd: 1.0 cm (0.6 - 1.1) IVSs: 1.5 cm LVIDs: 2.7 cm LVPWs: 1.2 cm LA Diam: 3.2 cm (2.7 - 3.8) Ao Diam: 2.8 cm (2.0 - 3.7) AV Cusp: 1.9 cm (1.5 - 2.6) MV EXCURSION: 16.074 mm (> 18.000) MV EF SLOPE: 74 mm/s (70 - 150) EPSS: 0.5 cm MV E Kayden: 1.06 m/s MV DecT: 274 ms MV A Kayden: 0.92 m/s MV E/A Ratio: 1.16 RAP: 5.00 mmHg RVSP: 31.41 mmHg FINDINGS -------- Sinus rhythm. This was a technically good study. The left ventricular size is normal. Left ventricular wall thickness is normal. Overall left vent ricular systolic function is normal with, an EF between 60 - 65 %. The right ventricle is normal in size. The left atrial size is normal. The right atrium is normal in size. Interatrial and interventricular septum intact. The aortic valve is trileaflet and appears structurally normal. The mitral valve leaflets are mildly thickened. Mild mitral annular calcification present. Mild m itral regurgitation is present. Mild tricuspid regurgitation present. Right ventricular systolic pressure is normal at < 35 mmHg. There is no pulmonic regurgitation present. The aortic root size is normal. Normal inferior vena cava with normal inspiratory collapse consistent with estimated right atrial pre ssure of 5 mmHg. There is no pericardial effusion. CONCLUSIONS -------- 1. Sinus rhythm. 2. This was a technically good study. 3. The left ventricular size is normal. 4. Left ventricular wall thickness is normal. 5. Overall left ventricular systolic function is normal with, an EF between 60 - 65 %. 6. The right ventricle is normal in size. 7. The left atrial size is normal. 8. The right atrium is normal in size. 9. Interatrial and interventricular septum intact. 10. The aortic valve is trileaflet and appears structurally normal. 11. The mitral valve leaflets are mildly thickened. 12. Mild mitral annular calcification present. 13. Mild mitral regurgitation is present. 14. Mild tricuspid regurgitation present. 15. Right ventricular systolic pressure is normal at < 35 mmHg. 16. There is no pulmonic regurgitation present. 17. The aortic root size is normal. 18. Normal inferior vena cava with normal inspiratory collapse consistent with estimated right atrial pressure of 5 mmHg. 19. There is no pericardial effusion. STEEP TENDER: Nerissa Helms RDCS
--- NOTE | 2019-09-04 12:14 | P.DS ---
Providers Date of admission: 09/04/19 08:51 Attending physician: Emily Correa Consults: 09/02/19 20:15 Consult Physician Urgent Consulting Provider: [facility] Consult Reason/Comments: acute chest pain, acute palpitations Do you want consulting provider notified?: Yes [facility] Course: 63-year-old female came in with complains of palpitations and felt like her heart is missing beats. Patient has a loop recorder for 3 years which is being evaluated at this timethe patient has multiple hospital physicians in the past for chest pain patient is a day and complaining of chest pain on and off pressure-like sensation retrosternal 80 and not associated with the nausea vomiting lightheadedness or shortness of breath. Patient occasionally has lightheadedness because of the low blood pressure whenever she takes lisinopril patient blood pressure is in 80s 90s systolic patient had a normal ejection fraction not a diabetic will not require lisinopril patient was asked to check the blood pressures at home. EKG showed a left bundle branch block., as per the ER physician patient had episodes of bradycardia on the loop recorder review although these results are not found because of which there and her interrogating loop recorder again. any fever chills cough.documented lowest heart rate here in the hospital is around 48 09/04/2019 Patient was evaluated by cardiology recommended tilt table testing patient underwent tilt table testing which showed some orthostatic hypotension her lisinopril will be discontinued. Her tachycardia is probably secondary to hypotension. Patient blood pressure remains low throughout his hospital ration in spite of stopping lisinopril patient is an not a candidate for any antidepressants medications at this time patient was counseled regarding appropriate way of checking blood pressure at home. PHYSICAL EXAMINATION: GENERAL: The patient is alert and oriented x3, not in any acute distress. Well developed, well nourished. HEENT: Pupils are round and equally reacting to light. EOMI. No scleral icterus. No conjunctival pallor. Normocephalic, atraumatic. No pharyngeal erythema. No thyromegaly. CARDIOVASCULAR: S1 and S2 present. No murmurs, rubs, or gallops. PULMONARY: Chest is clear to auscultation, no wheezing or crackles. ABDOMEN: Soft, nontender, nondistended, normoactive bowel sounds. No palpable organomegaly. MUSCULOSKELETAL: No joint swelling or deformity. EXTREMITIES: No cyanosis, clubbing, or pedal edema. NEUROLOGICAL: Gross neurological examination did not reveal any focal deficits. SKIN: No rashes. Assessment and Plan Plan: -symptoms of palpitations and skipping beats: Patient had episodes of tachycardia which was believed secondary to hypotension tilt table testing as mentioned above. Lisinopril will be discontinued and patient will be discharged today Symptoms of lightheadedness: Probably secondary to low blood pressure patient, lisinopril will be discontinued -Hypertension patient is actually hypotensive management as mentioned above -Coronary artery disease with previous PCI's patient is complaining of some nonspecific chest pain cardiology evaluated the patient, chest pain appears to be noncardiac no further intervention from cardiology perspective -Nicotine dependence -Anxiety disorder -Hyperlipidemia Patient Condition at Discharge: Stable Plan - Discharge Summary Discharge Rx Participant: No New Discharge Prescriptions: Discontinued Lisinopril [Prinivil] 10 mg PO DAILY@1230 No Action Clopidogrel [Plavix] 75 mg PO DAILY Aspirin 81 mg PO DAILY chew Baclofen 10 mg PO TID Nitroglycerin Sl Tabs [Nitrostat] 0.4 mg SUBLINGUAL Q5M PRN #30 tab PRN Reason: Chest Pain Discharge Medication List Clopidogrel [Plavix] 75 mg PO DAILY 07/28/17 [History] Aspirin 81 mg PO DAILY chew 08/22/17 [Rx] Baclofen 10 mg PO TID 12/30/17 [History] Nitroglycerin Sl Tabs [Nitrostat] 0.4 mg SUBLINGUAL Q5M PRN #30 tab 10/16/18 [Rx] Follow up Appointment(s)/Referral(s): Rhett Granados MD [STAFF PHYSICIAN] - 1 Week Myles Lamar DO [Primary Care Provider] - 3 Days Discharge Disposition: HOME SELF-CARE
--- NOTE | 2019-09-04 12:39 | P.PN ---
Subjective Progress Note Date: 09/04/19 This is a 63-year-old female patient who follows with Dr. Null in the office. She has a known history of coronary artery disease with prior PCI, hypertension, persistent palpitations for which she currently has a loop recorder in place, history of nicotine dependence, anxiety, hyperlipidemia. She underwent a dobutamine echocardiographic study in November of last year which was negative for any reversible ischemia. An echo was performed also at that time which revealed an ejection fraction of greater than 50%. She presented to the hospital on this occasion with feeling like her heart was skipping a beat, she also states that she felt as though she may pass out, but she did not pass out. According to the patient, her loop recorder was interrogated in the emergency room, we cannot find a copy of that so we will interrogate again. Chest x-ray on presentation here did not reveal any evidence of cardiopulmonary disease. EKG shows a normal sinus rhythm with a left bundle-branch block pattern. Blood pressure on arrival here 84/50 with a heart rate of 40-60, 98% on room air. White blood cell count 4.9, hemoglobin 12.5, hematocrit 38.3, platelet count 267. Sodium 136, potassium 4.4, BUN 104, creatinine 27 BUN 12 and creatinine 0.8. Troponins negative 3, TSH 1.06. 09/04/2019 Patient seen and examined this morning, underwent a tilt table test yesterday which revealed rate related left bundle branch block aberrancy, no evidence of neurogenic cardiac syncope. Mild drop in blood pressure upon assuming upright position, mild asymptomatic orthostatic hypotension with associated mild increase in heart rate and change in QRS morphology with a left bundle-branch block pattern. Echocardiogram with Doppler study revealed an ejection fraction of 60-65%. Blood pressure this morning 104/60 with a heart rate in the 70s, 99% on room air. Objective - Vital Signs Vital signs: Vital Signs Temp 97.9 F 09/04/19 08:00 Pulse 75 09/04/19 08:00 Resp 20 09/04/19 08:00 BP 104/63 09/04/19 08:00 Pulse Ox 99 09/04/19 08:00 Intake & Output 09/03/19 09/04/19 09/04/19 18:59 06:59 18:59 Intake Total 740 150 280 Output Total 400 Balance 740 -250 280 Weight 59.5 kg Intake: IV 20 Oral 720 150 280 Output: Urine 400 Other: Voiding Method Toilet Toilet # Voids 1 - Exam PHYSICAL EXAMINATION: GENERAL: 63-year-old female in no acute distress at the time of examination HEENT: Head is atraumatic, normocephalic. Pupils equal, round. Sclera anicteric. Conjunctiva are clear. Mucous membranes of the mouth are moist. Neck is supple. There is no elevated jugular venous pressure. No carotid bruit is heard. HEART EXAMINATION: Heart S1, S2 normal. No murmur or gallop heard. CHEST EXAMINATION: Lungs are clear to auscultation and precussion. No chest wall tenderness is noted on palpation or with deep breathing. ABDOMEN: Soft, nontender. Bowel sounds are heard. No organomegaly noted. EXTREMITIES: 2+ peripheral pulses with no evidence of peripheral edema and no calf tenderness noted. NEUROLOGIC patient is awake, alert and oriented 3 . . - Labs CBC & Chem 7: 09/03/19 05:16 09/03/19 05:16 Assessment and Plan Plan: Assessment and plan #1 symptoms of palpitations and heart skipping with associated feeling of near syncope #2 coronary artery disease with prior PCI #3 hypertension #4 nicotine dependence #5 anxiety #6 hyperlipidemia Plan Patient underwent a tilt table test yesterday which revealed rate related left bundle branch block aberrancy, no evidence for neural cardiogenic syncope, mild drop in blood pressure assuming the upright position, mild asymptomatic orthostatic hypotension associated with a mild increase in heart rate and change in QRS morphology with a left bundle-branch block morphology on account of mild increase in heart rate. We will review the loop recorder interrogation. Patient may be able to be discharged home from cardiology's perspective, to follow-up in the office post discharge. DNP note has been reviewed, I agree with a documented findings and plan of care. Patient was seen and examined.
== END 2019-09-04 15:50 | disposition home or self-care (01) | DRG 312 ==
LOC: EC 16:59 → 3SCARD 20:14 → OBSVTOIN 09-04 08:51
PROVIDERS: ADMIT Hospitalist; ATTEND Hospitalist
DX: I95.1 Orthostatic hypotension (principal); I49.5 Sick sinus syndrome; I44.7 Left bundle-branch block, unspecified; I25.10 Atherosclerotic heart disease of native coronary artery without angina pectoris; I10 Essential (primary) hypertension; F41.9 Anxiety disorder, unspecified; F17.200 Nicotine dependence, unspecified, uncomplicated; E78.5 Hyperlipidemia, unspecified; Z96.649 Presence of unspecified artificial hip joint; Z11.59 Encounter for screening for other viral diseases; Z79.82 Long term (current) use of aspirin; I25.2 Old myocardial infarction; Z79.899 Other long term (current) drug therapy; Z79.02 Long term (current) use of antithrombotics/antiplatelets; Z80.0 Family history of malignant neoplasm of digestive organs; Z82.49 Family history of ischemic heart disease and other diseases of the circulatory system; Z86.73 Personal history of transient ischemic attack (TIA), and cerebral infarction without residual deficits; Z91.09 Other allergy status, other than to drugs and biological substances; Z95.5 Presence of coronary angioplasty implant and graft; Z98.890 Other specified postprocedural states; Z80.9 Family history of malignant neoplasm, unspecified
CPT/HCPCS: 36415; 71046; 80048; 80053; 81001; 83735; 84443; 84484; 85025; 85610; 85730; 87635; 93005; 93306; 93660; 99285

== ENCOUNTER → 2019-12-16 | Outpatient (CLI) | payer MEDICARE ==
--- NOTE | 2019-12-16 12:15 | US ---
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 TECHNIQUE: Multiple sonographic images of the kidneys are obtained. Spectral waveform analysis of the renal vasculature. MEASUREMENTS: Mid Abdominal Aorta: 63.2 cm/s RENAL SIZE: Rt Kidney: 9.2 x 3.9 x 4.6cm without hydronephrosis. Lt Kidney: 9.6 x 4.0 x 4.4 cm without hydronephrosis. RESISTANCE INDEX Right: 0.64 Left: 0.62 RA/AO RATIO (< 3.5 ) Right: 2.2 Left: 1.6 RA VELOCITY ( < 180 cm/s) Right: 140 Left: 105 (extensive overlying bowel gas, unable to visualize proximal renal artery) IMPRESSION: 1. Doppler criteria do not indicate any evidence for renal artery stenosis on the right. 2. Limited assessment on the left as the proximal renal artery could not be visualized due to overlyi ng bowel gas. However, relatively normal RI within the kidney argues against a left-sided renal arter y stenosis.
[2019-12-19 22:36] LABS: Metanephrine, Free <25 pg/mL (< OR = 57); Normetanephrine, Free 55 pg/mL (< OR = 148); Total, Free (MN + NMN) 55 pg/mL (< OR = 205)
== END | disposition home or self-care (01) ==
LOC: RADUSWWP 08:11
PROVIDERS: ATTEND Internal Medicine Interventional Cardiology
DX: I10 Essential (primary) hypertension (principal)
CPT/HCPCS: 82533; 83835; 93975

== ENCOUNTER 2020-12-12 18:49 | Observation (INO) | payer MEDICARE ==
[2020-12-12] MEDS ORDERED: ASPIRIN 81 MG PO STA (19:00)
[2020-12-12] MEDS ORDERED: NITROGLYCERIN SL TABS 0.4 MG TAB SUBLINGUAL PRN ×2 (19:07→21:06)
--- NOTE | 2020-12-12 19:12 | ED ---
General Adult HPI - General Chief complaint: Chest Pain Stated complaint: Chest pain Time Seen by Provider: 12/12/20 18:59 Source: patient, RN notes reviewed Mode of arrival: wheelchair Limitations: no limitations - History of Present Illness Initial comments: Patient is a pleasant 65-year-old female presenting to the emergency Department with complaints of chest discomfort. Onset of symptoms was yesterday. Symptoms returned this morning and have been persistent since that time. Discomfort is 5/10. Discomfort feels a pressure. No associated dyspnea. No nausea. Patient did feel little bit sweaty earlier. Patient does have history of similar symptoms previously. No leg pain or leg swelling - Related Data Home Medications Medication Instructions Recorded Confirmed Clopidogrel [Plavix] 75 mg PO DAILY 07/28/17 09/02/19 Baclofen 10 mg PO TID 12/30/17 09/02/19 Previous Rx's Medication Instructions Recorded Aspirin 81 mg PO DAILY chew 08/22/17 Nitroglycerin Sl Tabs [Nitrostat] 0.4 mg SUBLINGUAL Q5M PRN #30 tab 10/16/18 Allergies Allergy/AdvReac Type Severity Reaction Status Date / Time adhesive tape AdvReac SKIN TEAR Verified 12/12/20 18:58 Review of Systems ROS Statement: Those systems with pertinent positive or pertinent negative responses have been documented in the HPI. ROS Other: All systems not noted in ROS Statement are negative. Constitutional: Denies: fever Eyes: Denies: eye pain ENT: Denies: ear pain Respiratory: Denies: cough, dyspnea Cardiovascular: Reports: as per HPI, chest pain Endocrine: Denies: fatigue Gastrointestinal: Denies: abdominal pain Genitourinary: Denies: dysuria Musculoskeletal: Denies: back pain Skin: Denies: rash Neurological: Denies: weakness Past Medical History Past Medical History: Coronary Artery Disease (CAD), Chest Pain / Angina, CVA/TIA, Hypertension, Myocardial Infarction ([place]), Osteoarthritis (OA), Syncope Additional Past Medical History / Comment(s): Degenerative disc disease, chronic back pain, CVA 07/2017- left with weakness on right on and off Last Myocardial Infarction Date:: 05/2017 History of Any Multi-Drug Resistant Organisms: None Reported Past Surgical History: Heart Catheterization With Stent, Joint Replacement Additional Past Surgical History / Comment(s): Ectopic , loop monitor, 3 stents, Total hip bilat Past Anesthesia/Blood Transfusion Reactions: No Reported Reaction Additional Past Anesthesia/Blood Transfusion Reaction / Comment(s): after hip replacement last time had very slow pulse Date of Last Stent Placement:: 05/2017 Past Psychological History: Anxiety Smoking Status: Former smoker Past Alcohol Use History: None Reported Past Drug Use History: None Reported - Past Family History Mother Family Medical History: Cancer, Hypertension Additional Family Medical History / Comment(s): Bone,blood,pancreatic CA Father Family Medical History: Cancer, Hypertension, Thyroid Disorder Additional Family Medical History / Comment(s): Small Cell Carcoma CA General Exam Limitations: no limitations General appearance: alert, in no apparent distress Head exam: Present: normocephalic Eye exam: Present: normal appearance Respiratory exam: Present: normal lung sounds bilaterally. Absent: chest wall tenderness Cardiovascular Exam: Present: regular rate, normal rhythm Expanded Peripheral pulses: 2+: Radial (R), Radial (L), Dorsalis Pedis (R), Dorsalis Pedis (L) GI/Abdominal exam: Present: soft. Absent: tenderness Extremities exam: Present: normal inspection. Absent: pedal edema, calf tenderness Neurological exam: Present: alert Psychiatric exam: Present: normal affect, normal mood Skin exam: Present: normal color Course Vital Signs 12/12/20 18:54 Temperature 98.3 F Pulse Rate 87 Respiratory 20 Rate Blood Pressure 150/84 O2 Sat by Pulse 99 Oximetry - Reevaluation(s) Reevaluation #1: 12/12/20 19:42 Case was discussed with Dr. Johnson, who will admit EKG Findings - EKG Comments: EKG Findings:: Sinus bradycardia with a rate of 50. [place] 146. QRS 92. QT 438. QTC 39. Normal axis. Normal QRS. No acute ST change Medical Decision Making - Medical Decision Making Patient updated. Dr. Johnson has been paged for admission, covering for Dr. Sharpe. - Lab Data Result diagrams: 12/12/20 19:06 12/12/20 19:06 Lab Results 12/12/20 12/12/20 12/12/20 Range/Units 19:06 19:06 19:06 WBC 5.1 (3.8-10.6) k/uL RBC 4.70 (3.80-5.40) m/uL Hgb 14.2 (11.4-16.0) gm/dL Hct 42.2 (34.0-46.0) % MCV 89.9 (80.0-100.0) fL MCH 30.2 (25.0-35.0) pg MCHC 33.6 (31.0-37.0) g/dL RDW 12.6 (11.5-15.5) % Plt Count 291 (150-450) k/uL MPV 7.5 Neutrophils % 50 % Lymphocytes % 37 % Monocytes % 6 % Eosinophils % 5 % Basophils % 1 % Neutrophils # 2.6 (1.3-7.7) k/uL Lymphocytes # 1.9 (1.0-4.8) k/uL Monocytes # 0.3 (0-1.0) k/uL Eosinophils # 0.2 (0-0.7) k/uL Basophils # 0.1 (0-0.2) k/uL PT 10.3 (9.0-12.0) sec INR 1.0 (<1.2) APTT 25.9 (22.0-30.0) sec D-Dimer 0.29 (<0.60) mg/L FEU Sodium 138 (137-145) mmol/L Potassium 3.8 (3.5-5.1) mmol/L Chloride 107 (98-107) mmol/L Carbon Dioxide 23 (22-30) mmol/L Anion Gap 8 mmol/L BUN 12 (7-17) mg/dL Creatinine 0.75 (0.52-1.04) mg/dL Est GFR (CKD-EPI)AfAm >90 (>60 ml/min/1.73 sqM) Est GFR (CKD-EPI)NonAf 85 (>60 ml/min/1.73 sqM) Glucose 92 (74-99) mg/dL Calcium 9.4 (8.4-10.2) mg/dL Magnesium 2.2 (1.6-2.3) mg/dL Total Bilirubin 0.6 (0.2-1.3) mg/dL AST 23 (14-36) U/L ALT 12 (4-34) U/L Alkaline Phosphatase 63 (38-126) U/L Troponin I (0.000-0.034) ng/mL Total Protein 7.0 (6.3-8.2) g/dL Albumin 4.3 (3.5-5.0) g/dL 12/12/20 Range/Units 19:06 WBC (3.8-10.6) k/uL RBC (3.80-5.40) m/uL Hgb (11.4-16.0) gm/dL Hct (34.0-46.0) % MCV (80.0-100.0) fL MCH (25.0-35.0) pg MCHC (31.0-37.0) g/dL RDW (11.5-15.5) % Plt Count (150-450) k/uL MPV Neutrophils % % Lymphocytes % % Monocytes % % Eosinophils % % Basophils % % Neutrophils # (1.3-7.7) k/uL Lymphocytes # (1.0-4.8) k/uL Monocytes # (0-1.0) k/uL Eosinophils # (0-0.7) k/uL Basophils # (0-0.2) k/uL PT (9.0-12.0) sec INR (<1.2) APTT (22.0-30.0) sec D-Dimer (<0.60) mg/L FEU Sodium (137-145) mmol/L Potassium (3.5-5.1) mmol/L Chloride (98-107) mmol/L Carbon Dioxide (22-30) mmol/L Anion Gap mmol/L BUN (7-17) mg/dL Creatinine (0.52-1.04) mg/dL Est GFR (CKD-EPI)AfAm (>60 ml/min/1.73 sqM) Est GFR (CKD-EPI)NonAf (>60 ml/min/1.73 sqM) Glucose (74-99) mg/dL Calcium (8.4-10.2) mg/dL Magnesium (1.6-2.3) mg/dL Total Bilirubin (0.2-1.3) mg/dL AST (14-36) U/L ALT (4-34) U/L Alkaline Phosphatase (38-126) U/L Troponin I <0.012 (0.000-0.034) ng/mL Total Protein (6.3-8.2) g/dL Albumin (3.5-5.0) g/dL Disposition Clinical Impression: Chest pressure Disposition: ADMITTED IP TO THIS [facility] Is patient prescribed a controlled substance at d/c from ED?: No Decision Time: 19:12
[2020-12-12 19:20] LABS: Basophils # (A) 0.1 k/uL (0-0.2); Basophils % (A) 1 %; Eosinophils # (A) 0.2 k/uL (0-0.7); Eosinophils % (A) 5 %; HCT 42.2 % (34.0-46.0); HGB 14.2 gm/dL (11.4-16.0); Lymphocytes # (A) 1.9 k/uL (1.0-4.8); Lymphocytes % (A) 37 %; MCH 30.2 pg (25.0-35.0); MCHC 33.6 g/dL (31.0-37.0); MCV 89.9 fL (80.0-100.0); Mean Platelet Volume 7.5; Monocytes # (A) 0.3 k/uL (0-1.0); Monocytes % (A) 6 %; Neutrophils # (A) 2.6 k/uL (1.3-7.7); Neutrophils % (A) 50 %; Platelet Count 291 k/uL (150-450); RDW 12.6 % (11.5-15.5); WBC 5.1 k/uL (3.8-10.6)
[2020-12-12 19:30] LABS: ALT 12 U/L (4-34); AST 23 U/L (14-36); African American GFR (CKD) >90 (>60 ml/min/1.73 sqM); Albumin 4.3 g/dL (3.5-5.0); Alkaline Phosphatase 63 U/L (38-126); Anion Gap 8 mmol/L; Blood Urea Nitrogen 12 mg/dL (7-17); Calcium 9.4 mg/dL (8.4-10.2); Carbon Dioxide 23 mmol/L (22-30); Chloride 107 mmol/L (98-107); Glucose 92 mg/dL (74-99); Magnesium 2.2 mg/dL (1.6-2.3); Non-African American GFR(CKD) 85 (>60 ml/min/1.73 sqM); Potassium 3.8 mmol/L (3.5-5.1); Sodium 138 mmol/L (137-145); Total Bilirubin 0.6 mg/dL (0.2-1.3)
[2020-12-12 19:35] LABS: Partial Thromboplastin Time 25.9 sec (22.0-30.0); Prothrombin Time 10.3 sec (9.0-12.0)
[2020-12-12] MEDS ORDERED: METOPROLOL TARTRATE 25 MG TAB PO PRN (21:06)
[2020-12-12] MEDS ORDERED: ALPRAZolam 0.25 MG TAB PO PRN (21:06)
[2020-12-12] MEDS ORDERED: ACETAMINOPHEN TAB 500 MG TAB PO PRN (21:06)
[2020-12-12] MEDS: BACLOFEN 10 MG TAB PO SCH (21:24)
[2020-12-13] MEDS: NITROGLYCERIN OINT 1 INCH/GM PACKET TOPICAL SCH ×3 (01:01→11:09)
[2020-12-13 02:43] VITALS: RESP 16
[2020-12-13] MEDS: BACLOFEN 10 MG TAB PO SCH (07:59)
[2020-12-13 08:00] VITALS: BP 128/78; PULSE 54; TEMP 97.7
[2020-12-13] MEDS ORDERED: ESCITALOPRAM 10 MG TAB PO SCH (09:00)
[2020-12-13] MEDS ORDERED: ASPIRIN 81 MG PO SCH (09:00)
[2020-12-13] MEDS ORDERED: CLOPIDOGREL 75 MG TAB PO SCH (09:00)
[2020-12-13] MEDS ORDERED: amLODIPine 2.5 MG TAB PO SCH (09:00)
[2020-12-13] MEDS ORDERED: ASPIRIN 325 MG TAB PO SCH (09:00)
--- NOTE | 2020-12-13 09:49 | P.CRDCN ---
History of Present Illness History of present illness: HISTORY OF PRESENTING ILLNESS Patient is a pleasant 65-year-old female with history of coronary artery disease status post PCI of the RCA, circumflex, diagonal branch of LAD, most recent hea rt catheterization 2018 showing mild to moderate disease, patent stents which have been stable. She also has a history of sinus bradycardia, occasional tachycardia with concern of tachybradycardia syndrome and previous discussions of possible pacemaker. History of hypertension, anxiety, left bundle branch block. Patient initially presented to [facility] secondary to 2 episodes of chest tightness. Initially there was discussion of nitroglycerin improving her pain however on discussing with patient she admits that the pain slowly resided over proximally 8 hours while in the emergency department. Secondary to nitroglycerin improving the pain she was transferred however as before she states it went away on its own. She denies any associated nausea, diaphoresis, shortness breath. Workup with white blood cell 5.1, hemoglobin 14.2, platelets 291, d-dimer 0.29, creatinine 0.75, troponin normal 3, proBNP 75, EKG sinus bradycardia without any significant ST or T-wave abnormalities. Patient states since being discharged she has been feeling great and does not believe that the pain is related to her heart, does not feel similar to her prior cardiac events. She also admits to occasional palpitations with these have been chronic did have 1 episode yesterday for a few minutes. Appears to influence her chest pain. REVIEW OF SYSTEMS At the time of my exam: CONSTITUTIONAL: Denies fever or chills. CARDIOVASCULAR: +chest pain, no shortness of breath, orthopnea, PND or palpitat ions. RESPIRATORY: Denies cough. GASTROINTESTINAL: Denies abdominal pain, diarrhea, constipation, nausea or vomiting. MUSCULOSKELETAL: Denies myalgias. NEUROLOGIC: Denies numbness, tingling or weakness. ENDOCRINE: Denies fatigue, weight change, polydipsia or polyurina. GENITOURINARY: Denies burning, hematuria or urgency with micturation. HEMATOLOGIC: Denies history of anemia or bleeding. PHYSICAL EXAMINATION Vital signs reviewed. CONSTITUTIONAL: No apparent distress. HEENT: Head is normocephalic. Pupils are equal, round. Sclerae anicteric. Mucous membranes of the mouth are moist. No JVD. No carotid bruit. CHEST EXAMINATION: Lungs are clear to auscultation. No chest wall tenderness is noted on palpation or with deep breathing. HEART EXAMINATION: Regular rate and rhythm. S1, S2 heard. No murmurs, gallops or rub. ABDOMEN: Soft, nontender. Positive bowel sounds. EXTREMITIES: 2+ peripheral pulses, no lower extremity edema and no calf tenderness. NEUROLOGIC EXAMINATION: Patient is awake, alert and oriented x3. ASSESSMENT 1. Atypical chest pain with troponins normal 3, acute coronary syndrome has been ruled out. Does not appear typical of her angina. 2. Coronary artery disease status post previous PCI 3. Hypertension 4. Hyperlipidemia 5. History of tachycardia and bradycardia PLAN Workup thus far has been unrevealing. Patient with stress test recently 2 weeks ago. There has been some discussion in the past about possible pacemaker with primary human resources project coordinator Dr. Granados. Chest pain is atypical and patient desiring to follow-up with Dr. Granados tomorrow in office. No signs of any acute coronary syndrome and patient stable for discharge with outpatient follow-up. Past Medical History Past Medical History: Coronary Artery Disease (CAD), Chest Pain / Angina, CVA/TIA, Hypertension, Myocardial Infarction ([place]), Osteoarthritis (OA), Syncope Additional Past Medical History / Comment(s): Degenerative disc disease, chronic back pain, CVA 07/2017- left with weakness on right on and off Last Myocardial Infarction Date:: 05/2017 History of Any Multi-Drug Resistant Organisms: None Reported Past Surgical History: Heart Catheterization With Stent, Joint Replacement Additional Past Surgical History / Comment(s): Ectopic , loop monitor, 3 stents, Total hip bilat Past Anesthesia/Blood Transfusion Reactions: No Reported Reaction Additional Past Anesthesia/Blood Transfusion Reaction / Comment(s): after hip replacement last time had very slow pulse Date of Last Stent Placement:: 05/2017 Past Psychological History: Anxiety Additional Psychological History / Comment(s): Pt resides alone. Pt normally is independent with her ADls. She drives a car. Smoking Status: Former smoker Past Alcohol Use History: None Reported Additional Past Alcohol Use History / Comment(s): quit smoking November 2016, sta rted smoking at age of 13, smoked 1ppd Past Drug Use History: None Reported - Past Family History Mother Family Medical History: Cancer, Hypertension Additional Family Medical History / Comment(s): Bone,blood,pancreatic CA Father Family Medical History: Cancer, Hypertension, Thyroid Disorder Additional Family Medical History / Comment(s): Small Cell Carcoma CA Medications and Allergies Home Medications Medication Instructions Recorded Confirmed Type Clopidogrel [Plavix] 75 mg PO DAILY 07/28/17 12/12/20 History Aspirin 81 mg PO DAILY chew 08/22/17 12/12/20 Rx Baclofen 10 mg PO TID 12/30/17 12/12/20 History Nitroglycerin Sl Tabs [Nitrostat] 0.4 mg SUBLINGUAL Q5M PRN #30 tab 10/16/18 12/12/20 Rx ALPRAZolam [Xanax] 0.25 mg PO DAILY PRN 12/12/20 12/12/20 History Acetaminophen Tab [Tylenol] 250 mg PO ONCE PRN 12/12/20 12/12/20 History Escitalopram [Lexapro] 10 mg PO DAILY 12/12/20 12/12/20 History Metoprolol Tartrate [Lopressor] 25 mg PO DAILY PRN 12/12/20 12/12/20 History amLODIPine [Norvasc] 2.5 mg PO DAILY 12/12/20 12/12/20 History Allergies Allergy/AdvReac Type Severity Reaction Status Date / Time adhesive tape AdvReac SKIN TEAR Verified 12/12/20 20:03 Physical Exam Vitals: Vital Signs Temp Pulse Pulse Resp BP BP Pulse Ox 12/13/20 07:00 97.7 F 54 L 16 128/78 100 12/13/20 02:20 97.9 F 48 L 16 103/66 97 12/12/20 20:21 97.7 F 55 L 17 127/84 98 12/12/20 19:47 98 F 52 L 24 148/82 97 12/12/20 18:54 98.3 F 87 20 150/84 99 Intake and Output 12/12/20 12/13/20 12/13/20 22:59 06:59 14:59 Other: Voiding Method Toilet Toilet # Voids 1 1 Weight 57.606 kg Results 12/12/20 19:06 12/12/20 19:06 Cardiac Enzymes 12/12/20 12/12/20 12/12/20 Range/Units 19:06 19:06 23:45 AST 23 (14-36) U/L Troponin I <0.012 <0.012 (0.000-0.034) ng/mL 12/13/20 Range/Units Unknown AST (14-36) U/L Troponin I <0.012 (0.000-0.034) ng/mL Coagulation 12/12/20 Range/Units 19:06 PT 10.3 (9.0-12.0) sec APTT 25.9 (22.0-30.0) sec CBC 12/12/20 Range/Units 19:06 WBC 5.1 (3.8-10.6) k/uL RBC 4.70 (3.80-5.40) m/uL Hgb 14.2 (11.4-16.0) gm/dL Hct 42.2 (34.0-46.0) % Plt Count 291 (150-450) k/uL Comprehensive Metabolic Panel 12/12/20 Range/Units 19:06 Sodium 138 (137-145) mmol/L Potassium 3.8 (3.5-5.1) mmol/L Chloride 107 (98-107) mmol/L Carbon Dioxide 23 (22-30) mmol/L BUN 12 (7-17) mg/dL Creatinine 0.75 (0.52-1.04) mg/dL Glucose 92 (74-99) mg/dL Calcium 9.4 (8.4-10.2) mg/dL AST 23 (14-36) U/L ALT 12 (4-34) U/L Alkaline Phosphatase 63 (38-126) U/L Total Protein 7.0 (6.3-8.2) g/dL Albumin 4.3 (3.5-5.0) g/dL Current Medications Generic Name Dose Route Start Last Admin Trade Name Мария PRN Reason Stop Dose Admin Acetaminophen 250 mg 12/12/20 21:06 12/13/20 05:05 Acetaminophen Tab 500 Mg Tab PO 250 mg ONCE PRN Administration Migraine Headache Alprazolam 0.25 mg 12/12/20 21:06 Alprazolam 0.25 Mg Tab PO DAILY PRN Anxiety Amlodipine Besylate 2.5 mg 12/13/20 09:00 12/13/20 07:59 Amlodipine 2.5 Mg Tab PO 2.5 mg DAILY DORIS Administration Aspirin 81 mg 12/13/20 09:00 12/13/20 07:59 Aspirin 81 Mg PO 81 mg DAILY DORIS Administration Baclofen 10 mg 12/12/20 22:00 12/13/20 07:59 Baclofen 10 Mg Tab PO 10 mg TID DORIS Administration Clopidogrel Bisulfate 75 mg 12/13/20 09:00 12/13/20 07:59 Clopidogrel 75 Mg Tab PO 75 mg DAILY DORIS Administration Escitalopram Oxalate 10 mg 12/13/20 09:00 12/13/20 07:59 Escitalopram 10 Mg Tab PO 10 mg DAILY DORIS Administration Metoprolol Tartrate 25 mg 12/12/20 21:06 Metoprolol Tartrate 25 Mg Tab PO DAILY PRN Hypertension Nitroglycerin 0.4 mg 12/12/20 19:07 Nitroglycerin Sl Tabs 0.4 Mg Tab SUBLINGUAL Q5M PRN Chest Pain Nitroglycerin 1 inch 12/13/20 00:00 12/13/20 05:00 Nitroglycerin Oint 1 Inch/Gm Packet TOPICAL Not Given Q6HR DORIS Intake and Output 12/12/20 12/13/20 12/13/20 22:59 06:59 14:59 Other: Voiding Method Toilet Toilet # Voids 1 1 Weight 57.606 kg 12/12/20 19:06 12/12/20 19:06
[2020-12-13 11:43] LABS: Chol/HDL Ratio 2.8; LDL Cholesterol,Calculated 123.2 mg/dL (0.0-131.0); VLDL Calculation 18.8 mg/dL (5.00-40.00)
--- NOTE | 2020-12-13 16:17 | P.HPIM ---
History of Present Illness H&P Date: 12/13/20 Chief Complaint: Chest pressure History of presenting complaint: This is a pleasant 65-year-old patient of Dr. Sharpe. Chronic stable medical conditions include hypertension, coronary artery disease with stent in 2017, osteoarthritis, DJD, anxiety, follows with lineman a class Dr. Null. About 2 weeks ago she had a stress test that was apparently negative. For 2 d ays patient been having episodes of chest heaviness. Present in the morning. Laying across the chest. No dizziness nor lightheadedness no shortness of breath. No nausea vomiting. Did have some perspiration. Patient occasionally feels dizzy and lightheadedness. She has been told she has bradycardia and the need for a possible pacemaker. She wants to wait for that. medications have been changed for that purpose. She initially presented to [facility] from where she was transferred here. She had some pain yesterday evening also. This morning she has no pain. Review of systems: GEN.: None EYES: None HEENT: None NECK: None RESPIRATORY: None CARDIOVASCULAR: As above GASTROINTESTINAL: None GENITOURINARY: None MUSCULOSKELETAL: None LYMPHATICS: None HEMATOLOGICAL: None PSYCHIATRY: None NEUROLOGICAL: None Past medical history to include: Stroke with complete recovery, coronary artery with stent in 2018, DJD, prostatitis, hypertension, anxiety, Social history: Lives alone. Smoked from the age of 13 stopped in November 2016. No alcohol. Family history: Hypertension, blood borne pancreatic cancer Physical examination: VITAL SIGNS: 97.7, 54, 16, 128/78, 100% room air GENERAL: BMI 21.8, sitting up in bed, comfortable. EYES: Pupils equal. Conjunctiva normal. HEENT: External appearance of nose and ears normal, oral cavity grossly normal. NECK: JVD not raised; masses not palpable. HEART: First and second heart sounds are normal; no edema. LUNGS: Respiratory rate normal; clear to auscultation. ABDOMEN: Soft, nontender, liver spleen not palpable, no masses palpable. PSYCH: Alert and oriented x3; mood and affect normal. NEUROLOGICAL: Cranial nerves grossly intact; no facial asymmetry, power and sensation grossly intact. LYMPHATICS: No lymph nodes palpable in the axilla and neck INVESTIGATIONS, reviewed in the clinical context: WBC 5.1 hemoglobin 14.2 platelets 291 potassium 3.8 creatinine 0.75 Troponin I 3 all negative LDL 123 EKG tracing personally reviewed by me-normal sinus rhythm. Rate 50 Assessment and plan: -Anterior chest wall pain in a patient with known coronary artery disease with a prior stent in 2018. Apparently patient had a stress test 2 weeks ago that was negative. Troponins are negative. No obvious ischemic changes on the EKG. Cardiology consulted -Coronary artery disease with stent coronary stent in [address] Null. 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 Patient has been told for possible pacemaker in the past. She is not ready for the same. She is following this through with her lineman a class. Home medications resumed. Telemetry. Cardiology consulted. Past Medical History Past Medical History: Coronary Artery Disease (CAD), Chest Pain / Angina, CVA/TIA, Hypertension, Myocardial Infarction ([place]), Osteoarthritis (OA), Syncope Additional Past Medical History / Comment(s): Degenerative disc disease, chronic back pain, CVA 07/2017- left with weakness on right on and off Last Myocardial Infarction Date:: 05/2017 History of Any Multi-Drug Resistant Organisms: None Reported Past Surgical History: Heart Catheterization With Stent, Joint Replacement Additional Past Surgical History / Comment(s): Ectopic , loop monitor, 3 stents, Total hip bilat Past Anesthesia/Blood Transfusion Reactions: No Reported Reaction Additional Past Anesthesia/Blood Transfusion Reaction / Comment(s): after hip replacement last time had very slow pulse Date of Last Stent Placement:: 05/2017 Past Psychological History: Anxiety Additional Psychological History / Comment(s): Pt resides alone. Pt normally is independent with her ADls. She drives a car. Smoking Status: Former smoker Past Alcohol Use History: None Reported Additional Past Alcohol Use History / Comment(s): quit smoking November 2016, started smoking at age of 13, smoked 1ppd Past Drug Use History: None Reported - Past Family History Mother Family Medical History: Cancer, Hypertension Additional Family Medical History / Comment(s): Bone,blood,pancreatic CA Father Family Medical History: Cancer, Hypertension, Thyroid Disorder Additional Family Medical History / Comment(s): Small Cell Carcoma CA Medications and Allergies Home Medications Medication Instructions Recorded Confirmed Type Clopidogrel [Plavix] 75 mg PO DAILY 07/28/17 12/12/20 History Aspirin 81 mg PO DAILY chew 08/22/17 12/12/20 Rx Baclofen 10 mg PO TID 12/30/17 12/12/20 History Nitroglycerin Sl Tabs [Nitrostat] 0.4 mg SUBLINGUAL Q5M PRN #30 tab 10/16/18 12/12/20 Rx ALPRAZolam [Xanax] 0.25 mg PO DAILY PRN 12/12/20 12/12/20 History Acetaminophen Tab [Tylenol] 250 mg PO ONCE PRN 12/12/20 12/12/20 History Escitalopram [Lexapro] 10 mg PO DAILY 12/12/20 12/12/20 History Metoprolol Tartrate [Lopressor] 25 mg PO DAILY PRN 12/12/20 12/12/20 History amLODIPine [Norvasc] 2.5 mg PO DAILY 12/12/20 12/12/20 History Allergies Allergy/AdvReac Type Severity Reaction Status Date / Time adhesive tape AdvReac SKIN TEAR Verified 12/12/20 20:03 Physical Exam Vitals: Vital Signs Temp Pulse Pulse Resp BP BP Pulse Ox 12/13/20 07:00 97.7 F 54 L 16 128/78 100 12/13/20 02:20 97.9 F 48 L 16 103/66 97 12/12/20 20:21 97.7 F 55 L 17 127/84 98 12/12/20 19:47 98 F 52 L 24 148/82 97 12/12/20 18:54 98.3 F 87 20 150/84 99 Intake and Output 12/12/20 12/13/20 12/13/20 22:59 06:59 14:59 Other: Voiding Method Toilet Toilet # Voids 1 1 Weight 57.606 kg Results CBC & Chem 7: 12/12/20 19:06 12/12/20 19:06 Thrombosis Risk Factor Assmnt - Choose All That Apply Each Risk Factor Represents 2 Points: Age 61-74 years Thrombosis Risk Factor Assessment Total Risk Factor Score: 2 Thrombosis Risk Factor Assessment Level: Low Risk
--- NOTE | 2020-12-13 16:19 | P.DS ---
Providers Date of admission: 12/12/20 19:07 Expected date of discharge: 12/13/20 Attending physician: Isaiah Johnson Consults: 12/12/20 19:07 Consult Physician Urgent Consulting Provider: Rhett Granados Consult Reason/Comments: cp Do you want consulting provider notified?: Yes Primary care physician: Maxime Annemarie [facility] Course: Chief Complaint: Chest pressure History of presenting complaint: This is a pleasant 65-year-old patient of Dr. Sharpe. Chronic stable medical conditions include hypertension, coronary artery disease with stent in 2018 J anuary, osteoarthritis, DJD, anxiety, follows with automotive glass specialist Dr. Null. About 2 weeks ago she had a stress test that was apparently negative. For 2 days patient been having episodes of chest heaviness. Present in the morning. Laying across the chest. No dizziness nor lightheadedness no shortness of breath. No nausea vomiting. Did have some perspiration. Patient occasionally feels dizzy and lightheadedness. She has been told she has bradycardia and the need for a possible pacemaker. She wants to wait for that. medications have been changed for that purpose. She initially presented to [facility] from where she was transferred here. She had some pain yesterday evening also. This morning she has no pain. Patient doing well today. Up and about. No chest pain. Cleared by cardiology. No leg swelling. Patient follow-up with her automotive glass specialist Dr. Null. Discussed with the patient. Consultation: Dr. Larsen from cardiology Past medical history to include: Stroke with complete recovery, coronary artery with stent in 2018, DJD, prostatitis, hypertension, anxiety, Social history: Lives alone. Smoked from the age of 13 stopped in November 2016. No alcohol. Family history: Hypertension, blood borne pancreatic cancer Physical examination: VITAL SIGNS: 97.7, 54, 16, 128/78, 100% room air GENERAL: BMI 21.8, sitting up in bed, comfortable. EYES: Pupils equal. Conjunctiva normal. NECK: JVD not raised; masses not palpable. HEART: First and second heart sounds are normal; no edema. LUNGS: Respiratory rate normal; clear to auscultation. ABDOMEN: Soft, nontender, liver spleen not palpable, no masses palpable. PSYCH: Alert and oriented x3; mood and affect normal. INVESTIGATIONS, reviewed in the clinical context: WBC 5.1 hemoglobin 14.2 platelets 291 potassium 3.8 creatinine 0.75 Troponin I 3 all negative LDL 123 EKG tracing personally reviewed by me-normal sinus rhythm. Rate 50 Assessment and plan: -Anterior chest wall pain in a patient with known coronary artery disease with a prior stent in 2018. Apparently patient had a stress test 2 weeks ago that was negative. Troponins are negative. No obvious ischemic changes on the EKG. C ardiology consulted -Coronary artery disease with stent coronary stent in [address] Null. 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 Patient has been told for possible pacemaker. She is not ready for the same. She is following this through with her automotive glass specialist. Disposition: Home Plan - Discharge Summary Discharge Rx Participant: No New Discharge Prescriptions: Continue Clopidogrel [Plavix] 75 mg PO DAILY Aspirin 81 mg PO DAILY chew Baclofen 10 mg PO TID Nitroglycerin Sl Tabs [Nitrostat] 0.4 mg SUBLINGUAL Q5M PRN #30 tab PRN Reason: Chest Pain Acetaminophen Tab [Tylenol] 250 mg PO ONCE PRN PRN Reason: Migraine Headache Metoprolol Tartrate [Lopressor] 25 mg PO DAILY PRN PRN Reason: Hypertension amLODIPine [Norvasc] 2.5 mg PO DAILY Escitalopram [Lexapro] 10 mg PO DAILY ALPRAZolam [Xanax] 0.25 mg PO DAILY PRN PRN Reason: Anxiety Discharge Medication List Clopidogrel [Plavix] 75 mg PO DAILY 07/28/17 [History] Aspirin 81 mg PO DAILY chew 08/22/17 [Rx] Baclofen 10 mg PO TID 12/30/17 [History] Nitroglycerin Sl Tabs [Nitrostat] 0.4 mg SUBLINGUAL Q5M PRN #30 tab 10/16/18 [Rx] ALPRAZolam [Xanax] 0.25 mg PO DAILY PRN 12/12/20 [History] Acetaminophen Tab [Tylenol] 250 mg PO ONCE PRN 12/12/20 [History] Escitalopram [Lexapro] 10 mg PO DAILY 12/12/20 [History] Metoprolol Tartrate [Lopressor] 25 mg PO DAILY PRN 12/12/20 [History] amLODIPine [Norvasc] 2.5 mg PO DAILY 12/12/20 [History] Follow up Appointment(s)/Referral(s): Rhett Granados MD [STAFF PHYSICIAN] - 1-2 Days Maxime Sharpe MD [Primary Care Provider] - 1-2 days Patient Instructions/Handouts: Chest Pain (DC) Discharge Disposition: HOME SELF-CARE
== END 2020-12-13 11:45 | disposition home or self-care (01) ==
LOC: EC 18:49 → 6NMEDSUR 19:07
PROVIDERS: ADMIT Hospitalist; ATTEND Hospitalist
DX: R07.89 Other chest pain (principal); I25.10 Atherosclerotic heart disease of native coronary artery without angina pectoris; I10 Essential (primary) hypertension; E78.5 Hyperlipidemia, unspecified; R00.1 Bradycardia, unspecified; R00.0 Tachycardia, unspecified; F41.8 Other specified anxiety disorders; M62.838 Other muscle spasm; I25.2 Old myocardial infarction; Z91.048 Other nonmedicinal substance allergy status; M19.90 Unspecified osteoarthritis, unspecified site; G89.29 Other chronic pain; M54.9 Dorsalgia, unspecified; I44.7 Left bundle-branch block, unspecified; Z79.82 Long term (current) use of aspirin; Z79.02 Long term (current) use of antithrombotics/antiplatelets; Z79.899 Other long term (current) drug therapy; Z87.891 Personal history of nicotine dependence; Z95.5 Presence of coronary angioplasty implant and graft; Z96.649 Presence of unspecified artificial hip joint; Z86.73 Personal history of transient ischemic attack (TIA), and cerebral infarction without residual deficits; Z82.49 Family history of ischemic heart disease and other diseases of the circulatory system; Z80.0 Family history of malignant neoplasm of digestive organs; Z80.7 Family history of other malignant neoplasms of lymphoid, hematopoietic and related tissues; Z80.8 Family history of malignant neoplasm of other organs or systems
CPT/HCPCS: 93005 ×2; 99285; 36415; 85379; 83880; 80061; 80053; 83735; 84484 ×2; 85025; 85610; 85730; G0378 ×2

== ENCOUNTER 2022-11-29 10:45 | Observation (INO) | payer MEDICARE ==
--- NOTE | 2022-11-29 11:09 | ED ---
General Adult HPI - General Chief complaint: Chest Pain Stated complaint: Chest pain Time Seen by Provider: 11/29/22 10:55 Source: patient, EMS, RN notes reviewed, old records reviewed Mode of arrival: EMS Limitations: no limitations - History of Present Illness Initial comments: 67-year-old female presenting for evaluation of lightheadedness, palpitations. Patient states she was outside, began to feel quite lightheaded and felt her heart racing. She states she checked it at home and it was 150. Her blood pressure was also elevated. She states she took her metoprolol and her heart rate did improve and she developed a substernal chest discomfort. She states this has completely resolved. No associated vomiting or diaphoresis. Patient also reports over the past 3 days she's developed bilateral lower extremity edema - Related Data Home Medications Medication Instructions Recorded Confirmed Clopidogrel [Plavix] 75 mg PO DAILY 07/28/17 12/12/20 Baclofen 10 mg PO TID 12/30/17 12/12/20 ALPRAZolam [Xanax] 0.25 mg PO DAILY PRN 12/12/20 12/12/20 Acetaminophen Tab [Tylenol] 250 mg PO ONCE PRN 12/12/20 12/12/20 Escitalopram [Lexapro] 10 mg PO DAILY 12/12/20 12/12/20 Metoprolol Tartrate [Lopressor] 25 mg PO DAILY PRN 12/12/20 12/12/20 amLODIPine [Norvasc] 2.5 mg PO DAILY 12/12/20 12/12/20 Previous Rx's Medication Instructions Recorded Aspirin 81 mg PO DAILY chew 08/22/17 Nitroglycerin Sl Tabs [Nitrostat] 0.4 mg SUBLINGUAL Q5M PRN #30 tab 10/16/18 Allergies Allergy/AdvReac Type Severity Reaction Status Date / Time adhesive tape AdvReac SKIN TEAR Verified 11/29/22 10:55 Review of Systems ROS Statement: Those systems with pertinent positive or pertinent negative responses have been documented in the HPI. ROS Other: All systems not noted in ROS Statement are negative. Past Medical History Past Medical History: Coronary Artery Disease (CAD), Chest Pain / Angina, CVA/TIA, Hypertension, Myocardial Infarction ([place]), Osteoarthritis (OA), Syncope Additional Past Medical History / Comment(s): Degenerative disc disease, chronic back pain, CVA 07/2017- left with weakness on right on and off Last Myocardial Infarction Date:: 05/2017 History of Any Multi-Drug Resistant Organisms: None Reported Past Surgical History: Heart Catheterization With Stent, Joint Replacement Additional Past Surgical History / Comment(s): Ectopic , loop monitor, 3 stents, Total hip bilat Past Anesthesia/Blood Transfusion Reactions: No Reported Reaction Additional Past Anesthesia/Blood Transfusion Reaction / Comment(s): after hip replacement last time had very slow pulse Date of Last Stent Placement:: 05/2017 Past Psychological History: Anxiety Smoking Status: Former smoker Past Alcohol Use History: None Reported Past Drug Use History: None Reported - Past Family History Mother Family Medical History: Cancer, Hypertension Additional Family Medical History / Comment(s): Bone,blood,pancreatic CA Father Family Medical History: Cancer, Hypertension, Thyroid Disorder Additional Family Medical History / Comment(s): Small Cell Carcoma [place] General Exam Limitations: no limitations General appearance: alert, in no apparent distress Head exam: Present: atraumatic, normocephalic Eye exam: Present: normal appearance, PERRL ENT exam: Present: normal exam Neck exam: Present: normal inspection. Absent: tenderness, meningismus Respiratory exam: Present: normal lung sounds bilaterally. Absent: respiratory distress, wheezes Cardiovascular Exam: Present: normal rhythm, bradycardia GI/Abdominal exam: Present: soft. Absent: distended, tenderness, guarding Extremities exam: Present: pedal edema. Absent: calf tenderness Neurological exam: Present: alert, oriented X3, CN II-XII intact. Absent: motor sensory deficit Psychiatric exam: Present: normal affect, normal mood Skin exam: Present: warm, dry, intact. Absent: cyanosis, diaphoretic Course Vital Signs 11/29/22 11/29/22 10:52 11:50 Temperature 98.6 F Pulse Rate 50 L 47 L Respiratory 18 20 Rate Blood Pressure 174/83 135/84 O2 Sat by Pulse 96 97 Oximetry Medical Decision Making - Medical Decision Making Was pt. sent in by a medical professional or institution (, PA, OFFICE MACHINE TECHNICIAN, urgent care, hospital, or snf...) When possible be specific @ -No Did you speak to anyone other than the patient for history (EMS, parent, family, police, friend...)? What history was obtained from this source @ -[Paramedics Did you review nursing and triage notes (agree or disagree)? Why? @ -I reviewed and agree with nursing and triage notes Were old charts reviewed (outside hosp., previous admission, EMS record, old EKG, old radiological studies, urgent care reports/EKG's, snf records)? Report findings @ -No old charts were reviewed Differential Diagnosis (chest pain, altered mental status, abdominal pain women, abdominal pain men, vaginal bleeding, weakness, fever, dyspnea, syncope, headache, dizziness, GI bleed, back pain, seizure, CVA, palpatations, mental health, musculoskeletal)? @ Differential Chest Pain: Stable Angina, Unstable Angina, STEMI, NSTEMI Aortic Dissection, Pneumothorax, Musculoskeletal, Esophageal Spasm GERD, Cholecystitis, Pancreatitis, Zoster, this is not meant to be an all-inclusive list. EKG interpreted by me (3pts min.). @ EKG: Sinus bradycardia with a left bundle branch block, rate of 42, IL interval 189, QRS duration 150, QTC 410 X-rays interpreted by me (1pt min.). @ -[Chest x-ray negative for acute cardiopulmonary findings CT interpreted by me (1pt min.). @ -None done U/S interpreted by me (1pt. min.). @ -None done What testing was considered but not performed or refused? (CT, X-rays, U/S, labs)? Why? @ -None What meds were considered but not given or refused? Why? @ -None Did you discuss the management of the patient with other professionals (iván acharya i.e. , PA, OFFICE MACHINE TECHNICIAN, lab, RT, psych nurse, social media sr strategy manager, laborer tanbark, teacher, staff air tactical officer, patient case manager)? Give summary @ -[Dr. Johnson Was smoking cessation discussed for >3mins.? @ -No Was critical care preformed (if so, how long)? @ -No Were there social determinants of health that impacted care today? How? (Homelessness, low income, unemployed, alcoholism, drug addiction, trans portation, low edu. Level, literacy, decrease access to med. care, fdc, rehab)? @ -No Was there de-escalation of care discussed even if they declined (Discuss DNR or withdrawal of care, Hospice)? DNR status @ -No What co-morbidities impacted this encounter? (DM, HTN, Smoking, COPD, CAD, Cancer, CVA, ARF, Chemo, Hep., AIDS, mental health diagnosis, sleep apnea, morbid obesity)? @ Coronary artery disease Was patient admitted / discharged? Hospital course, mention meds given and rout e, prescriptions, significant lab abnormalities, going to OR and other pertinent info. @ -67-year-old female presenting with lightheadedness, palpitation, chest pain. EKG is sinus bradycardia with left bundle branch block, normal CBC, normal CMP, negative initial troponin. Chest x-rays clear. Patient will be observed overnight for serial cardiac enzymes, telemetry, cardiology consultation. Undiagnosed new problem with uncertain prognosis? @ -No Drug Therapy requiring intensive monitoring for toxicity (Heparin, Nitro, Insulin, Cardizem)? @ -No Were any procedures done? @ -No Diagnosis/symptom? @ -[Chest pain Acute, or Chronic, or Acute on Chronic? @ -[Acute Uncomplicated (without systemic symptoms) or Complicated (systemic symptoms)? @ -default Side effects of treatment? @ -No Exacerbation, Progression, or Severe Exacerbation? @ -No Poses a threat to life or bodily function? How? (Chest pain, [place], [place], pneumonia, PE, COPD, DKA, ARF, appy, cholecystitis, CVA, Diverticulitis, Homicidal, Suicidal, threat to staff... and all critical care pts) @ -[yes, chest pain - Lab Data Result diagrams: 11/29/22 11:04 11/29/22 11:04 Lab Results 11/29/22 11/29/22 11/29/22 Range/Units 11:04 11:04 11:04 WBC 5.5 (3.8-10.6) k/uL RBC 4.32 (3.80-5.40) m/uL Hgb 13.1 (11.4-16.0) gm/dL Hct 39.6 (34.0-46.0) % MCV 91.6 (80.0-100.0) fL MCH 30.2 (25.0-35.0) pg MCHC 33.0 (31.0-37.0) g/dL RDW 13.4 (11.5-15.5) % Plt Count 262 (150-450) k/uL MPV 7.6 Neutrophils % 51 % Lymphocytes % 35 % Monocytes % 5 % Eosinophils % 6 % Basophils % 1 % Neutrophils # 2.8 (1.3-7.7) k/uL Lymphocytes # 1.9 (1.0-4.8) k/uL Monocytes # 0.3 (0-1.0) k/uL Eosinophils # 0.3 (0-0.7) k/uL Basophils # 0.0 (0-0.2) k/uL PT 9.9 (9.0-12.0) sec INR 0.9 (<1.2) APTT 24.4 (22.0-30.0) sec Sodium 135 L (137-145) mmol/L Potassium 4.0 (3.5-5.1) mmol/L Chloride 107 (98-107) mmol/L Carbon Dioxide 23 (22-30) mmol/L Anion Gap 5 mmol/L BUN 17 (7-17) mg/dL Creatinine 0.85 (0.52-1.04) mg/dL Est GFR (CKD-EPI)AfAm 84 (>60 ml/min/1.73 sqM) Est GFR (CKD-EPI)NonAf 72 (>60 ml/min/1.73 sqM) Glucose 96 (74-99) mg/dL Calcium 9.0 (8.4-10.2) mg/dL Magnesium 1.9 (1.6-2.3) mg/dL Total Bilirubin 0.4 (0.2-1.3) mg/dL AST 23 (14-36) U/L ALT 15 (4-34) U/L Alkaline Phosphatase 77 (38-126) U/L Troponin I (0.000-0.034) ng/mL NT-Pro-B Natriuret Pep pg/mL Total Protein 6.7 (6.3-8.2) g/dL Albumin 3.9 (3.5-5.0) g/dL 11/29/22 11/29/22 Range/Units 11:04 11:14 WBC (3.8-10.6) k/uL RBC (3.80-5.40) m/uL Hgb (11.4-16.0) gm/dL Hct (34.0-46.0) % MCV (80.0-100.0) fL MCH (25.0-35.0) pg MCHC (31.0-37.0) g/dL RDW (11.5-15.5) % Plt Count (150-450) k/uL MPV Neutrophils % % Lymphocytes % % Monocytes % % Eosinophils % % Basophils % % Neutrophils # (1.3-7.7) k/uL Lymphocytes # (1.0-4.8) k/uL Monocytes # (0-1.0) k/uL Eosinophils # (0-0.7) k/uL Basophils # (0-0.2) k/uL PT (9.0-12.0) sec INR (<1.2) APTT (22.0-30.0) sec Sodium (137-145) mmol/L Potassium (3.5-5.1) mmol/L Chloride (98-107) mmol/L Carbon Dioxide (22-30) mmol/L Anion Gap mmol/L BUN (7-17) mg/dL Creatinine (0.52-1.04) mg/dL Est GFR (CKD-EPI)AfAm (>60 ml/min/1.73 sqM) Est GFR (CKD-EPI)NonAf (>60 ml/min/1.73 sqM) Glucose (74-99) mg/dL Calcium (8.4-10.2) mg/dL Magnesium (1.6-2.3) mg/dL Total Bilirubin (0.2-1.3) mg/dL AST (14-36) U/L ALT (4-34) U/L Alkaline Phosphatase (38-126) U/L Troponin I <0.012 (0.000-0.034) ng/mL NT-Pro-B Natriuret Pep 117 pg/mL Total Protein (6.3-8.2) g/dL Albumin (3.5-5.0) g/dL Disposition Clinical Impression: Chest pain Disposition: ADMITTED IP TO THIS HOSP Condition: Stable Is patient prescribed a controlled substance at d/c from ED?: No Referrals: Maxime Sharpe MD [Primary Care Provider] - 1-2 days Time of Disposition: 12:32
[2022-11-29 11:10] LABS: Basophils % (A) 1 %; Eosinophils # (A) 0.3 k/uL (0-0.7); Eosinophils % (A) 6 %; HCT 39.6 % (34.0-46.0); HGB 13.1 gm/dL (11.4-16.0); Lymphocytes # (A) 1.9 k/uL (1.0-4.8); Lymphocytes % (A) 35 %; MCH 30.2 pg (25.0-35.0); MCV 91.6 fL (80.0-100.0); Mean Platelet Volume 7.6; Monocytes # (A) 0.3 k/uL (0-1.0); Monocytes % (A) 5 %; Neutrophils # (A) 2.8 k/uL (1.3-7.7); Neutrophils % (A) 51 %; Platelet Count 262 k/uL (150-450); RBC 4.32 m/uL (3.80-5.40); RDW 13.4 % (11.5-15.5); WBC 5.5 k/uL (3.8-10.6)
[2022-11-29 11:20] LABS: INR 0.9 (<1.2)
[2022-11-29 11:21] LABS: Partial Thromboplastin Time 24.4 sec (22.0-30.0); Prothrombin Time 9.9 sec (9.0-12.0)
[2022-11-29 11:23] LABS: ALT 15 U/L (4-34); AST 23 U/L (14-36); African American GFR (CKD) 84 (>60 ml/min/1.73 sqM); Albumin 3.9 g/dL (3.5-5.0); Alkaline Phosphatase 77 U/L (38-126); Anion Gap 5 mmol/L; Blood Urea Nitrogen 17 mg/dL (7-17); Carbon Dioxide 23 mmol/L (22-30); Chloride 107 mmol/L (98-107); Glucose 96 mg/dL (74-99); Magnesium 1.9 mg/dL (1.6-2.3); Non-African American GFR(CKD) 72 (>60 ml/min/1.73 sqM); Sodium 135 mmol/L (137-145); Total Bilirubin 0.4 mg/dL (0.2-1.3); Total Protein 6.7 g/dL (6.3-8.2)
--- NOTE | 2022-11-29 11:26 | XR ---
EXAMINATION TYPE: XR chest 2V DATE OF EXAM: 11/29/2022 COMPARISON: NONE TECHNIQUE: PA and lateral views submitted. HISTORY: Chest pain FINDINGS: The lungs are clear and there is no pneumothorax, pleural effusion, or focal pneumonia. Heart size borderline-enlarged and no overt failure. Osseous structures demonstrate hypertrophic and degenerativ e changes of the spine. Subcutaneous loop recorder device incidentally noted. Hyperinflation compatib le with COPD. IMPRESSION: 1. No acute process. COPD. 2. Borderline cardiomegaly. No overt failure.
[2022-11-29] MEDS ORDERED: NALOXONE 0.4 MG/ML 1 ML VIAL IV PRN (12:29)
[2022-11-29] MEDS ORDERED: ACETAMINOPHEN TAB 325 MG TAB PO PRN (12:29)
[2022-11-29] MEDS: ASPIRIN 325 MG TAB PO STA ×2 (12:35)
[2022-11-29] MEDS ORDERED: BACLOFEN 10 MG TAB PO PRN (14:42)
[2022-11-29] MEDS ORDERED: ALPRAZolam 0.25 MG TAB PO PRN (14:42)
--- NOTE | 2022-11-29 15:56 | P.HPIM ---
History of Present Illness H&P Date: 11/29/22 Chief Complaint: Heart racing This is a pleasant 67-year-old patient of Dr. Sharpe. Chronic stable medical conditions include hypertension, coronary artery disease with stent in 2017,, DJD, anxiety, follows with utility maintenance worker Dr. Granados. Patient has been doing fairly well. Not been able to get around the house. No cardiac symptoms. Today went up to the doctor. The boards. It came back inside the house. Started shaking all over. Legs felt like noodles. Had started thumping. Heart started pumping. Home blood pressure machine recorded a blood pressure of 2 10 x 1 19 and a heart rate of 140. She took 2 tablets of 12.5 mg Lopressor at a short interval. Finally EMS was called out. She also complaining of mid chest pressure. EKG within the EMS and home for the patient to be in sinus rhythm with left bundle-branch block. Patient being feeling flus hed in the face for last couple of days. Normally runs about 1 30 x 60. When I saw the patient to ER patient rather comfortable sitting up in bed. Heart rate in the 40s. Patient takes aspirin and Plavix because of multiple mini strokes. Review of systems: GEN.: Tired EYES: None HEENT: None NECK: None RESPIRATORY: None CARDIOVASCULAR: As above GASTROINTESTINAL: None GENITOURINARY: None MUSCULOSKELETAL: Joint pains LYMPHATICS: None HEMATOLOGICAL: None PSYCHIATRY: None NEUROLOGICAL: None Past medical history to include: Stroke with complete recovery, multiple mini strokes. coronary artery with stent in 2018, DJD,, hypertension, anxiety, Social history: Lives alone. Smoked from the age of 13 stopped in November 2016. No alcohol. Physical examination: VITAL SIGNS: 98.6, 47, 23, 158/88, 96% room air GENERAL: BMI 27.5, declining bed awake comfortable EYES: Pupils equal. Conjunctiva normal. HEENT: External appearance of nose and ears normal, oral cavity grossly normal. NECK: JVD not raised; masses not palpable. HEART: First and second heart sounds are normal; no edema. LUNGS: Respiratory rate normal; clear to auscultation. ABDOMEN: Soft, nontender, liver spleen not palpable, no masses palpable. PSYCH: Alert and oriented x3; mood and affect normal. NEUROLOGICAL: Cranial nerves grossly intact; no facial asymmetry, power and sensation grossly intact. LYMPHATICS: No lymph nodes palpable in the axilla and neck INVESTIGATIONS, reviewed in the clinical context: White count 5.5 hemoglobin 13.1 platelets 262 sodium 135 potassium 4 BUN 17 creatinine 0.85 Troponin I less than 0.012, 0.031. ProBNP 117 EKG tracing personally reviewed by me-normal sinus rhythm. Heart rate 42. Left bundle-branch block. Chest x-ray film personally reviewed by me-unremarkable Assessment and plan: -Probable tachyarrhythmia. Patient had episode at home all part thumping and racing. Recorded a heart rate of 140s with a blood pressure machine. Accompanied by high blood pressure. Patient to take Lopressor at home, symptoms subsided Telemetry. 2-D echo. Consult oncology. -Anterior chest wall pain in a patient with known coronary artery disease with a prior stent in 2018. Serial cardiac enzymes. Telemetry. -Coronary artery disease with stent coronary stent in [address] Null. Plavix, aspirin -Essential hypertension Zestril -Multiple mini strokes in the past. Patient does take aspirin and Plavix for the same. -Anxiety depression not otherwise specified Lexapro 10 mg hs -Chronic muscle spasms Baclofen 10 mg by mouth 3 times a day, as needed -Sinus bradycardia. Pacemaker was discussed in the past. Discussed with patient. Follows with cardiology. 2-D echo. Past Medical History Past Medical History: Coronary Artery Disease (CAD), Chest Pain / Angina, CVA/TIA, Hypertension, Myocardial Infarction ([place]), Osteoarthritis (OA), Syncope Additional Past Medical History / Comment(s): Degenerative disc disease, chronic back pain, CVA 07/2017- left with weakness on right on and off Last Myocardial Infarction Date:: 05/2017 History of Any Multi-Drug Resistant Organisms: None Reported Past Surgical History: Heart Catheterization With Stent, Joint Replacement Additional Past Surgical History / Comment(s): Ectopic , loop monitor, 3 stents, Total hip bilat Past Anesthesia/Blood Transfusion Reactions: No Reported Reaction Additional Past Anesthesia/Blood Transfusion Reaction / Comment(s): after hip replacement last time had very slow pulse Date of Last Stent Placement:: 05/2017 Past Psychological History: Anxiety Smoking Status: Former smoker Past Alcohol Use History: None Reported Past Drug Use History: None Reported - Past Family History Mother Family Medical History: Cancer, Hypertension Additional Family Medical History / Comment(s): Bone,blood,pancreatic CA Father Family Medical History: Cancer, Hypertension, Thyroid Disorder Additional Family Medical History / Comment(s): Small Cell Carcoma CA Medications and Allergies Home Medications Medication Instructions Recorded Confirmed Type Clopidogrel [Plavix] 75 mg PO DAILY 07/28/17 11/29/22 History Aspirin 81 mg PO DAILY chew 08/22/17 11/29/22 Rx Baclofen 10 mg PO TID PRN 12/30/17 11/29/22 History ALPRAZolam [Xanax] 0.25 mg PO DAILY PRN 12/12/20 11/29/22 History Escitalopram [Lexapro] 10 mg PO HS 12/12/20 11/29/22 History Metoprolol Tartrate [Lopressor] 12.5 - 25 mg PO DAILY PRN 12/12/20 11/29/22 History lisinopriL [Zestril] 10 mg PO DAILY 11/29/22 11/29/22 History predniSONE [Deltasone] 20 mg PO DIRECTED 11/29/22 11/29/22 History Allergies Allergy/AdvReac Type Severity Reaction Status Date / Time adhesive tape AdvReac SKIN TEAR Verified 11/29/22 14:24 Physical Exam Vitals: Vital Signs Temp Pulse Resp BP Pulse Ox 11/29/22 14:00 39 L 16 140/79 99 11/29/22 13:30 37 L 19 134/77 99 11/29/22 12:58 42 L 18 11/29/22 12:30 47 L 23 158/88 96 11/29/22 12:00 37 L 20 135/84 96 11/29/22 11:50 47 L 20 135/84 97 11/29/22 10:52 98.6 F 50 L 18 174/83 96 Intake and Output 11/28/22 11/29/22 11/29/22 22:59 06:59 14:59 Other: Weight 72.575 kg Results CBC & Chem 7: 11/29/22 11:04 11/29/22 11:04 Labs: Abnormal Lab Results - Last 24 Hours (Table) 11/29/22 Range/Units 11:04 Sodium 135 L (137-145) mmol/L
[2022-11-29] MEDS ORDERED: ESCITALOPRAM 10 MG TAB PO SCH (21:00)
[2022-11-30] MEDS ORDERED: CLOPIDOGREL 75 MG TAB PO SCH (09:00)
[2022-11-30] MEDS ORDERED: ASPIRIN 81 MG PO SCH (09:00)
[2022-11-30] MEDS: lisinopriL 10 MG TAB PO SCH ×2 (09:45→09:48)
--- NOTE | 2022-11-30 09:49 | CONS ---
CONSULTATION HISTORY OF PRESENT ILLNESS: James is a 67-year-old lady who presented to hospital with sustained palpitations. She has history of coronary artery disease status post prior angioplasty, hypertension, developed intermittent episodes of sustained palpitations while she was working yesterday. She took metoprolol with which the palpitations have improved, called the EMS and was brought to the ER. She also complains of chest pressure which she states started after the palpitations have resolved. Admission EKG shows sinus rhythm with left bundle branch block. Her troponin, she had 4 sets of troponins, one of them is slightly elevated at 0.04. At the time of my evaluation, she appears comfortable at rest, remains in sinus rhythm, and stable hemodynamically. Given the unexplained chest pain and elevated troponin, I am going to advise her to undergo cardiac catheterization. She has just been fed, we will do this tomorrow. I discussed risks, benefits, and alternatives. PAST MEDICAL HISTORY: Significant for coronary artery disease status post angioplasty and hypertension. CURRENT MEDICATIONS: Include Lopressor 12.5 on a p.r.n. basis, aspirin, Plavix 75 mg daily, Zestril 10 mg daily, Xanax, Lexapro. ALLERGIES: Adhesive tape. FAMILY HISTORY: Negative for premature coronary artery disease. SOCIAL HISTORY: Negative for current smoking, ETOH, or drug abuse. REVIEW OF SYSTEMS: review of systems has been performed. Pertinents are as documented. PHYSICAL EXAMINATION: GENERAL: Comfortable at rest. VITAL SIGNS: Heart rate is 40 beats per minute, blood pressure is 120/76, heart rate 61, respiratory rate 18. NECK: There is no jugular venous distention. Carotid upstroke is normal. There is no bruit. CHEST: Good air entry bilaterally. HEART: First and second heart sounds. No gallop. No murmur. No rub. ABDOMEN: Soft, nontender. EXTREMITIES: Did not reveal any edema. Peripheral pulses are felt. ASSESSMENT AND PLAN: 1. Palpitations. 2. Precordial chest pain with mild troponin elevation. The patient is stable, currently free of symptoms. I will obtain a 2D echo and schedule her for a cardiac cath tomorrow morning with Dr. Granados who sees her regularly. The patient is agreeable. MMODL / IJN: [id number] /
[2022-11-30] MEDS ORDERED: ATORVASTATIN 80 MG TAB PO STA (10:54)
[2022-11-30] MEDS ORDERED: ASPIRIN 325 MG TAB PO STA (10:54)
[2022-11-30] MEDS ORDERED: ALPRAZolam 0.5 MG TAB PO PRN (10:54)
[2022-11-30] MEDS ORDERED: NITROGLYCERIN SL TABS 0.4 MG TAB SUBLINGUAL PRN (10:54)
[2022-11-30] MEDS ORDERED: ALPRAZolam 0.25 MG TAB PO PRN (10:54)
--- NOTE | 2022-11-30 11:06 | CA ---
Transthoracic Echo Report Name: James Adorno Age: 67 Gender: F : 1955 Exam Date: 11/30/2022 07:56 Exam Location: [facility] Ht (in): 64 Wt (lb): 160 Ordering Physician: Isaiah Johnson MD Attending/Referring Phys: Sound Effects Technician John Wagner Procedure CPT: Indications: Chest Pain Cardiac Hx: Technical Quality: Fair Contrast 1: Total Dose (mL): Contrast 2: Total Dose (mL): MEASUREMENTS (Male / Female) Normal Values 2D ECHO LV Diastolic Diameter PLAX 4.7 cm 4.2 - 5.9 / 3.9 - 5.3 cm LV Systolic Diameter PLAX 3.4 cm IVS Diastolic Thickness 0.9 cm 0.6 - 1.0 / 0.6 - 0.9 cm LVPW Diastolic Thickness 0.9 cm 0.6 - 1.0 / 0.6 - 0.9 cm LV Relative Wall Thickness 0.4 RV Internal Dim ED PLAX 2.7 cm LVOT Diameter 1.9 cm Aortic Root Diameter 2.9 cm LA Systolic Diameter LX 2.9 cm 3.0 - 4.0 / 2.7 - 3.8 cm LV Diastolic Volume MOD BP 55.4 cm??? 67 - 155 / 56 - 104 cm??? LV Systolic Volume MOD BP 15.9 cm??? - 58 / 19 - 49 cm??? LV Ejection Fraction MOD BP 71.4 % >= 55 % LV Cardiac Index MOD BP 1016.7 cm???/min???m??? LV Diastolic Volume MOD 4C 56.3 cm??? LV Systolic Volume MOD 4C 18.3 cm??? LV Ejection Fraction MOD 4C 67.4 % LV Cardiac Index MOD 4C 976.2 cm???/min???m??? LV Diastolic Length 4C 7.4 cm LV Systolic Length 4C 5.5 cm LV Diastolic Volume MOD 2C 54.6 cm??? LV Systolic Volume MOD 2C 13.6 cm??? LV Ejection Fraction MOD 2C 75.1 % LV Cardiac Index MOD 2C 1054.6 cm???/min???m??? LV Diastolic Length 2C 7.4 cm LV Systolic Length 2C 5.6 cm LA Volume 33.7 cm??? 18 - 58 / 22 - 52 cm??? Ascending Aorta Diameter 2.9 cm DOPPLER AV Peak Velocity 157.9 cm/s AV Peak Gradient 10.0 mmHg LVOT Peak Velocity 114.2 cm/s LVOT Peak Gradient 5.2 mmHg AV Area Cont Eq pk 2.1 cm??? MV Peak Velocity 104.3 cm/s MV Peak Gradient 4.4 mmHg MV Mean Velocity 48.8 cm/s MV Mean Gradient 1.2 mmHg MV Velocity Time Integral 40.5 cm MR Peak Velocity 491.9 cm/s MR Peak Gradient 96.8 mmHg Mitral E Point Velocity 112.8 cm/s Mitral A Point Velocity 69.7 cm/s Mitral E to A Ratio 1.6 MV Deceleration Time 162.4 ms TR Peak Velocity 276.2 cm/s TR Peak Gradient 30.5 mmHg Right Ventricular Systolic Press 35.7 mmHg PV Peak Velocity 101.1 cm/s PV Peak Gradient 4.1 mmHg FINDINGS Left Ventricle Normal LV size and wall thickness. Left ventricular ejection fraction is estimated at 55-60 %.normal left ventricular wall motion. Right Ventricle Normal right ventricular size. RVSP= 42mmhg. Right Atrium Normal right atrial size. Left Atrium Normal left atrial size. Mitral Valve Structurally normal mitral valve. Mild MR. Aortic Valve Trileaflet aortic valve. No aortic valve stenosis or regurgitation. Tricuspid Valve Structurally normal tricuspid valve. Mild to moderate TR. Pulmonic Valve Pulmonic valve not well visualized. Trace PI. Pericardium Normal pericardium. Aorta Normal size aortic root and proximal ascending aorta. CONCLUSIONS 1. Normal left ventricle size and systolic function. 2. Mild mitral with [id number] tricuspid regurgitation and mild pulmonary hypertension Previewed by: Dr. Rajeev Hodgson MD (Electronically Signed) Final Date: 30 November 2022 11:05
[2022-11-30] MEDS ORDERED: VERAPAMIL 2.5 MG/ML 2 ML AMP ONE (13:41)
[2022-11-30] MEDS ORDERED: SODIUM CHLORIDE 0.9% 1,000 ML IV ONE (13:52)
[2022-11-30] MEDS ORDERED: LIDOCAINE 1% INJ 10MG/ML (5 ML VIAL-PF) SQ ONE (14:06)
[2022-11-30] MEDS ORDERED: fentaNYL (PF) 50 MCG/ML 2 ML AMP ONE (14:07)
[2022-11-30] MEDS ORDERED: MIDAZOLAM 2 MG/2 ML VIAL IVP ONE (14:07)
[2022-11-30] MEDS ORDERED: VERAPAMIL SYRINGE (5 MG/10 ML) INTRAARTER ONE (14:07)
[2022-11-30] MEDS ORDERED: fentaNYL (PF) 50 MCG/ML 2 ML AMP IVP ONE (14:11)
[2022-11-30] MEDS ORDERED: HEPARIN SODIUM 1,000 UN/ML (10ML VL) IV ONE (14:13)
[2022-11-30] MEDS ORDERED: RX INFO: IV CONTRAST WAS GIVEN 1 EACH MISC MISCELLANE PRN (14:24)
--- NOTE | 2022-11-30 14:28 | P.PCN ---
Date of Procedure: 11/30/22 Operative Findings: CARDIAC CATHETERIZATION PERFORMING PHYSICIAN: Rhett Granados MD, RPVI PROCEDURE PERFORMED: 1. Selective right and left coronary angiogram 2. Left heart catheterization 3. iFR of the LAD 4. Ultrasound-guided access of the right radial artery INDICATION: Acute non-ST elevation myocardial infarction COMPLICATION: None APPROACH: Right radial artery LEVEL OF SEDATION: Moderate with a sedation length of 18 minutes PROCEDURE DESCRIPTION: After obtaining an informed consent, the patient was brought to cardiac scientific laboratory supervisor. Local anesthesia was performed using lidocaine subcutaneously. The right radial artery was cannulated using Seldinger technique, the guidewire passed easily, following that we advanced a 5-Chadian sheath dilator assembly, the wire and dilator were removed and sheath was flushed. Following that, 2 mg of verapamil along with 5000 unit heparin were given. Selective right and left coronary angiogram using a 6-Chadian JR4 and JL 3.5 catheters. Following that we did left heart catheterization using 6-Chadian pigtail catheter. The procedure was completed there was no complication. SELECTIVE CORONARY ANGIOGRAM: The right coronary artery: Large caliber vessel and a dominant vessel. The RCA in the proximal portion is a stented and the stent is patent. The mid RCA has mild disease only and the RCA distally appeared to be angiographically normal. Left main: Angiographically normal. Bifurcates into an LCx and LAD The left circumflex: Large caliber vessel nondominant vessel. The LCx stented distally the stent is patent. Proximally has mild disease only. The left anterior descending artery: Large caliber vessel. The proximal LAD has intermediate lesion. We did an FFR on it and that came in to be nonischemic. The mid and distal LAD appeared to be angiographically normal. The LAD gives rise into a diagonal branch which is a stented with intermediate in-stent restenosis HEMODYNAMICS: The LVEDP was 14 mmHg was no significant gradient across aortic valve iFR of the LAD After zeroing the Doppler wire and equalizing between a Doppler wire and guiding catheter we did an iFR after the left main was engaged and the LAD was wired. The iFR came in to be an 0.98. CONCLUSION: 1. Intermediate disease involving the proximal LAD. iFR was performed and came in to be nonischemic at 0.98 2. Normal left-sided filling pressure POSTPROCEDURE MANAGEMENT: Medical treatment
[2022-11-30] MEDS ORDERED: SODIUM CHLORIDE 0.9% 1,000 ML IV SCH (14:30)
[2022-11-30] MEDS ORDERED: IOPAMIDOL-370 100ML BTL INJ ONE (14:30)
[2022-11-30 15:08] VITALS: TEMP 98.4
--- NOTE | 2022-11-30 15:10 | P.DS ---
Providers Date of admission: 11/29/22 12:31 Expected date of discharge: 11/30/22 Attending physician: Isaiah Johnson Consults: 11/29/22 12:29 Consult Physician Routine Consulting Provider: Red Styles Consult Reason/Comments: CP Do you want consulting provider notified?: Yes Primary care physician: Maxime Sharpe [facility] Course: Chief Complaint: Heart racing This is a pleasant 67-year-old patient of Dr. Sharpe. Chronic stable medical conditions include hypertension, coronary artery disease with stent in 2017,, DJD, anxiety, follows with inspector quality assurance Dr. Granados. Patient has been doing fairly well. Not been able to get around the house. No cardiac symptoms. Today went up to the doctor. The boards. It came back inside the house. Started shaking all over. Legs felt like noodles. Had started thumping. Heart started pumping. Home blood pressure machine recorded a blood pressure of 2 10 x 1 19 and a heart rate of 140. She took 2 tablets of 12.5 mg Lopressor at a short interval. Finally EMS was called out. She also complaining of mid chest pressure. EKG within the EMS and home for the patient to be in sinus rhythm with left bundle-branch block. Patient being feeling flushed in the face for last couple of days. Normally runs about 1 30 x 60. When I saw the patient to ER patient rather comfortable sitting up in bed. Heart rate in the 40s. Patient takes aspirin and Plavix because of multiple mini strokes. 11/30/2022: Underwent cardiac catheterization today by Dr. Granados. Intermittent disease of the proximal LAD. IVF out was performed came to be at 0.98. Patient being discharged on a small dose of Imdur. He'll follow-up with her inspector quality assurance. Past medical history to include: Stroke with complete recovery, multiple mini strokes. coronary artery with stent in 2018, DJD,, hypertension, anxiety, Social history: Lives alone. Smoked from the age of 13 stopped in November 2016. No alcohol. Physical examination: VITAL SIGNS: 98, 43, 17, 1 47 x 84, 97% room air GENERAL: In bed EYES: Pupils equal. Conjunctiva normal. HEENT: External appearance of nose and ears normal, oral cavity grossly normal. NECK: JVD not raised; masses not palpable. HEART: First and second heart sounds are normal; no edema. LUNGS: Respiratory rate normal; clear to auscultation. ABDOMEN: Soft, nontender, liver spleen not palpable, no masses palpable. PSYCH: Alert and oriented x3; mood and affect normal. INVESTIGATIONS, reviewed in the clinical context: 2-D echocardiogram: EF 55-60%. Cardiac catheterization showing intermittent disease of LAD. White count 5.5 hemoglobin 13.1 platelets 262 sodium 135 potassium 4 BUN 17 creatinine 0.85 Troponin I less than 0.012, 0.031. ProBNP 117 EKG tracing personally reviewed by me-normal sinus rhythm. Heart rate 42. Left bundle-branch block. Chest x-ray film personally reviewed by me-unremarkable Assessment and plan: -Probable tachyarrhythmia , aborted by taking Lopressor at home -Anterior chest wall pain in a patient with known coronary artery disease with a prior stent in 2018. Possible angina precipitated by tachyarrhythmia Cardiac catheterization showing intermittent disease to LAD. IVF or 0.98 -Coronary artery disease with stent coronary stent in 2018 Plavix, aspirin. Imdur 50 mg daily added -Essential hypertension Zestril -Multiple mini strokes in the past. Patient does take aspirin and Plavix for the same. -Anxiety depression not otherwise specified Lexapro 10 mg hs -Chronic muscle spasms Baclofen 10 mg by mouth 3 times a day, as needed -Sinus bradycardia. Disposition: Home Plan - Discharge Summary New Discharge Prescriptions: New Isosorbide Mononitrate ER [Imdur] 15 mg PO DAILY #30 tab Nitroglycerin Sl Tabs [Nitrostat] 0.4 mg SUBLINGUAL Q5M PRN #30 tab PRN Reason: Chest Pain Continue Clopidogrel [Plavix] 75 mg PO DAILY Aspirin 81 mg PO DAILY chew Baclofen 10 mg PO TID PRN PRN Reason: Muscle Spasm lisinopriL [Zestril] 10 mg PO DAILY Metoprolol Tartrate [Lopressor] 12.5 - 25 mg PO DAILY PRN PRN Reason: Tachycardia Escitalopram [Lexapro] 10 mg PO HS ALPRAZolam [Xanax] 0.25 mg PO DAILY PRN PRN Reason: Anxiety predniSONE [Deltasone] 20 mg PO DIRECTED Discharge Medication List Clopidogrel [Plavix] 75 mg PO DAILY 07/28/17 [History] Aspirin 81 mg PO DAILY chew 08/22/17 [Rx] Baclofen 10 mg PO TID PRN 12/30/17 [History] ALPRAZolam [Xanax] 0.25 mg PO DAILY PRN 12/12/20 [History] Escitalopram [Lexapro] 10 mg PO HS 12/12/20 [History] Metoprolol Tartrate [Lopressor] 12.5 - 25 mg PO DAILY PRN 12/12/20 [History] lisinopriL [Zestril] 10 mg PO DAILY 11/29/22 [History] predniSONE [Deltasone] 20 mg PO DIRECTED 11/29/22 [History] Isosorbide Mononitrate ER [Imdur] 15 mg PO DAILY #30 tab 11/30/22 [Rx] Nitroglycerin Sl Tabs [Nitrostat] 0.4 mg SUBLINGUAL Q5M PRN #30 tab 11/30/22 [Rx] Follow up Appointment(s)/Referral(s): Rhett Granados MD [STAFF PHYSICIAN] - 1 Week Maxime Sharpe MD [Primary Care Provider] - 1-2 days
[2022-11-30 15:48] VITALS: RESP 16
[2022-11-30 16:24] VITALS: BP 143/73; PULSE 44
[2022-12-01] MEDS ORDERED: HEPARIN SODIUM,PORCINE (1 ML) 2,500 UNIT in SODIUM CHLORIDE 0.9% 250 ML IRRIGATION PRN (07:00)
[2022-12-01] MEDS ORDERED: HEPARIN SODIUM,PORCINE 10,000 UNIT in SODIUM CHLORIDE 0.9% 1,000 ML IRRIGATION PRN (07:00)
== END 2022-11-30 18:00 | disposition home or self-care (01) ==
LOC: EC 10:45 → 6NMEDSUR 12:31 → 3SCARD 19:22 → 6NMEDSUR 11-30 14:28
PROVIDERS: ADMIT Hospitalist; ATTEND Hospitalist
DX: R07.2 Precordial pain (principal); R77.8 Other specified abnormalities of plasma proteins; R00.2 Palpitations; I25.10 Atherosclerotic heart disease of native coronary artery without angina pectoris; I10 Essential (primary) hypertension; M54.9 Dorsalgia, unspecified; G89.29 Other chronic pain; F41.9 Anxiety disorder, unspecified; F32.A Depression, unspecified; M62.838 Other muscle spasm; R00.1 Bradycardia, unspecified; I69.354 Hemiplegia and hemiparesis following cerebral infarction affecting left non-dominant side; Z87.891 Personal history of nicotine dependence; Z95.5 Presence of coronary angioplasty implant and graft; Z79.02 Long term (current) use of antithrombotics/antiplatelets; Z79.82 Long term (current) use of aspirin; Z79.899 Other long term (current) drug therapy
CPT/HCPCS: 99285; 36415; 93005; 93306; 93458; 93799; 76937; 83880; 80053; 83735; 84484 ×2; 85025; 85610; 85730; 71046; G0378 ×4; C1887; C1769 ×2; C1894; J2250; J2001; J3010; J1644; Q9967